=== PATIENT | female | born 1970 | race Two or more races ===

== ENCOUNTER 2020-11-30 11:04 | Outpatient (REF) | payer OTHER, SELFPAY ==
[2020-11-30 11:52] LABS: MANUAL DIFF FLAG NO
[2020-11-30 11:57] LABS: Basophils Percent Auto 0.3 % (0-2); Eosinophils Absolute Auto 0.2 X10*3/uL (0.0-0.4); Eosinophils Percent Auto 3.9 % (0-4); Hematocrit 40.1 % (37-47); Hemoglobin 12.8 g/dl (12.0-16.0); Imm Gran Abs Auto 0.02 X10*3/uL (0.00-0.03); Imm Gran Pct Auto 0.3 % (0.0-0.4); Lymphocytes Absolute Auto 1.4 X10*3/uL (1.2-4.9); Lymphocytes Percent Auto 22.5 % (20-40); Mean Corpuscular HGB Conc 31.9 g/dl (31.0-35.0); Mean Corpuscular Hemoglobin 27.5 pg (27.0-33.0); Mean Corpuscular Volume 86.2 fL (80-98); Monocytes Absolute Auto 0.5 X10*3/uL (0.1-1.2); Monocytes Percent Auto 8.1 % (2-11); Neutrophils Percent Auto 64.9 % (45-73); Platelet Count 188 X10*3/uL (160-400); Red Blood Count 4.65 X10*6/uL (4.20-5.50); Red Cell Distribution Width 12.6 % (11.0-16.0); White Blood Count 6.2 X10*3/uL (4.8-10.8)
[2020-11-30 12:31] LABS: Estimated Average Glucose 114 mg/dL; Hemoglobin A1c % 5.6 %
[2020-11-30 12:32] LABS: Alanine Aminotransferase 30 U/L (0-31); Albumin Level 4.3 g/dL (3.5-5.0); Alkaline Phosphatase 76 U/L (39-117); Anion Gap 17 (12-20); Aspartate Amino Transferase 29 U/L (5-31); Bilirubin Total 0.3 mg/dL (0.0-1.0); Blood Urea Nitrogen 16 mg/dL (9-16); Calcium 9.6 mg/dL (8.4-10.2); Carbon Dioxide 21 mmol/L (22-29); Chloride 107 mmol/L (96-108); Cholesterol 176 mg/dL; Estimated Glomerular Filt Rate > 60; Glucose Random 84 mg/dL (60-115); HDL Cholesterol 50 mg/dL; LDL Cholesterol Calculated 112 mg/dl; Potassium 4.3 mmol/l (3.3-5.1); Sodium 141 mmol/L (135-145); Triglycerides 72 mg/dL
== END 2020-11-30 11:05 | disposition home or self-care (01) ==
LOC: HO.LAB 11:04
PROVIDERS: Visit Provider Family Medicine
DX: E66.9 Obesity, unspecified (principal); R42 Dizziness and giddiness
CPT/HCPCS: 36415; 80053; 80061; 83036; 85025

== ENCOUNTER 2020-12-18 11:21 | Outpatient (REF) | payer OTHER, SELFPAY ==
[2020-12-18 11:47] LABS: Glucose Urine UA NEG (NEG); Leukocyte Esterase Urine NEG (NEG); Nitrite Urine POS (NEG); PH 6.5 (5.0-8.0); Urine Blood NEG (NEG); Urine Ketones NEG (NEG); Urine Protein NEG (NEG-TRACE)
[2020-12-18 11:58] LABS: Appearance Urine CLOUDY; Color Urine YELLOW
[2020-12-18 12:18] LABS: Bacteria Urine 3+ /LPF; Mucus Urine 1+ /LPF; Oval Fat Bodies Urine NOTED; RBC Urine 0 /HPF (0); Squamous Epithelial Cell Urine 1+ /LPF
== END 2020-12-18 11:22 | disposition home or self-care (01) ==
LOC: HO.US 11:21
PROVIDERS: Visit Provider Urology
DX: R30.0 Dysuria (principal)
CPT/HCPCS: 81001; 87086

== ENCOUNTER 2020-12-26 15:03 | Outpatient (REF) | payer OTHER, SELFPAY ==
--- NOTE | 2020-12-26 | US_ITS ---
EXAMINATION: US RETROPERITONEAL LIMITED (RENAL ONLY) CLINICAL INFORMATION: Renal stone. COMPARISON: Previous exam November 2019 TECHNIQUE: Grayscale and color imaging of the kidneys. Exam is limited as was performed with the patient sitting in a wheelchair. FINDINGS: RIGHT KIDNEY: 9.5 x 4.1 x 4.9 cm (SAG x AP x TRV). The kidney is normal in size, contour, and echogenicity. Renal cortical thickness is normal. No calculi or focal parenchymal lesions. No hydronephrosis. LEFT KIDNEY: 9.7 x 5.4 x 4.5 cm (SAG x AP x TRV). The kidney is normal in size, contour, and echogenicity. Renal cortical thickness is normal. No calculi or focal parenchymal lesions. No hydronephrosis. US/US renal BI IMPRESSION: Limited exam. No stone seen.
== END 2020-12-26 15:04 | disposition home or self-care (01) ==
LOC: HO.US 15:03
PROVIDERS: PCP Family Medicine; Visit Provider Urology
DX: Z87.442 Personal history of urinary calculi (principal)
CPT/HCPCS: 76775

== ENCOUNTER 2021-02-06 11:58 | Outpatient (REF) | payer OTHER, SELFPAY ==
--- NOTE | ~2021-02-06 | MM_ITS ---
EXAMINATION: MM SCREENING DIGITAL MAMMOGRAPHY, BILATERAL CLINICAL INFORMATION: Screening. Asymptomatic. The lifetime risk of breast cancer based on the Tyrer-Cuzick Model is 12%. COMPARISON: Mammography: 01/03/2019, 12/22/2017, 11/19/2016 TECHNIQUE: Digital mammography is performed in craniocaudal and mediolateral oblique views along with computer-aided detection (CAD). Additional exaggerated right CC view is provided. Discussion with office technologist notes that this was a technically challenging exam. The patient wheelchair-bound with decreased mobility and required two technologists to position and obtain images. Exam was tailored to patient capabilities. FINDINGS: There are scattered areas of fibroglandular density (ACR BI-RADS breast composition Category b). There are no significant masses, abnormal calcifications, or other abnormalities. No significant changes from prior studies. MM/MM screening mammo BI IMPRESSION: No significant changes from prior exams. Patient study limitations. Exam tailored to patient capabilities. ASSESSMENT: BI-RADS 2: Benign RECOMMENDATION: Routine annual mammography screening. This patient's information was entered into a reminder system with a target due date for their next mammogram.
== END 2021-02-06 11:59 | disposition home or self-care (01) ==
LOC: HO.MAMMO 11:58
PROVIDERS: PCP Family Medicine; Visit Provider Family Medicine
DX: Z12.31 Encounter for screening mammogram for malignant neoplasm of breast (principal)
CPT/HCPCS: 77067

== ENCOUNTER → 2021-03-21 10:56 | Outpatient (BNVA) | payer OTHER, SELFPAY | PROVIDERS: PCP Family Medicine; Visit Provider Urology | DX: N20.0 Calculus of kidney (principal) | CPT/HCPCS: 99212 ==

== ENCOUNTER 2021-05-20 14:23 | Outpatient (REF) | payer OTHER, SELFPAY ==
--- NOTE | ~2021-05-20 | MR_ITS ---
MRI OF THE BRAIN WITHOUT IV CONTRAST INDICATION: Seizures. COMPARISON: Brain MRI 04/25/2014. TECHNIQUE: Multiplanar multisequence MR imaging of the brain was obtained without IV contrast. FINDINGS: There is no hydrocephalus, extra-axial surface collection, or herniation. Stable pattern T2 signal changes within the periventricular white matter associated with squared morphology of the lateral ventricles and chronic appearing ischemic changes within the centrum semiovale bilaterally and chronic encephalomalacia and gliosis within the left occipital lobe. These findings may in part reflect periventricular leukomalacia given ventricular morphology. There is no mesial temporal sclerosis. The major flow voids at the skull base are preserved. There is no acute infarct on diffusion-weighted imaging. There is no intracranial hemorrhage on the gradient recalled echo acquisition. The midline structures are normal. The cerebellar tonsils are normally positioned. The cerebellum and brainstem are normal. The craniocervical junction is normal. Osseous marrow signal intensity is homogenous. The visualized soft tissues are unremarkable. The right ethmoid air cells are opacified. Moderate opacification of the right frontal sinus. MR/MR head/brain wo con IMPRESSION: - No acute intracranial findings. No mesial temporal sclerosis. - Stable pattern T2 signal changes within the periventricular white matter associated with squared morphology of the lateral ventricles and chronic appearing ischemic changes within the centrum semiovale bilaterally and chronic encephalomalacia and gliosis within the left occipital lobe. These findings may in part reflect periventricular leukomalacia given ventricular morphology. - The right ethmoid air cells are opacified. Moderate opacification of the right frontal sinus.
== END 2021-05-20 14:24 | disposition home or self-care (01) ==
LOC: HO.MRI 14:23
PROVIDERS: PCP Family Medicine; Visit Provider Psychiatry & Neurology Neurology
DX: R56.9 Unspecified convulsions (principal)
CPT/HCPCS: 70551

== ENCOUNTER 2021-05-29 07:20 | Day surgery (SDC) | payer OTHER, SELFPAY ==
[2021-05-22 13:19] VITALS: BMI 26.5
--- NOTE | 2021-05-28 09:32 | HO.ANESPROP2 ---
Documented by User: Lydia Johns 05/28/21 09:33 HPI - Anesthesia Eval Consult details Narrative: 50yo F for Upper Endoscopy and Colonoscopy PMFSH Active Problems Active Problems: All Active Problems (Updated 05/22/21 @ 13:18 by Bell Miller) Nephrolithiasis (Acute) Past Medical History Medical History (Updated 05/22/21 @ 13:18 by Bell Miller) Alopecia Asthma Edema of both lower extremities GERD (gastroesophageal reflux disease) Hx of cerebral palsy Wheelchair dependence Surgical History Surgical History (Updated 05/22/21 @ 13:17 by Bell Miller) History of esophagogastroduodenoscopy (EGD) History of surgery Hx of appendectomy Hx of colonoscopy Hx of lithotripsy Social History Social History Patient Tobacco Use Status: Never used Tobacco Are you DNR?: No Advance Directives: No Advance Directives Information Provided: No Advance Directives on File: No Meds Allergies Allergy/AdvReac Type Severity Reaction Status Date / Time budesonide [From SYMBICORT] Allergy Intermediate TREMOR Verified 05/29/21 07:21 formoterol [From SYMBICORT] Allergy Intermediate TREMOR Verified 05/29/21 07:21 sulfamethoxazole Allergy Intermediate RASH Verified 05/29/21 07:21 [From BACTRIM] trimethoprim [From BACTRIM] Allergy Intermediate RASH Verified 05/29/21 07:21 Sulfa (Sulfonamide Allergy Unknown Unknown Verified 05/29/21 07:21 Antibiotics) Symbicort Allergy Unknown Unknown Uncoded 05/29/21 07:21 Home Medications Medication Instructions Recorded Confirmed Last Taken Type albuterol sulfate 90 mcg/actuation 2 puff INHALATION Q4H PRN 03/21/21 Unknown History aerosol inhaler alclometasone 0.05 % topical cream appl TOPICAL 03/21/21 Unknown History ascorbic acid (vitamin C) 500 mg 500 mg PO DAILY 03/21/21 Unknown History tablet bismuth subsalicylate 262 mg tablet 0 tab PO 03/21/21 Unknown History cetirizine 10 mg tablet 10 mg PO DAILY 03/21/21 05/29/21 06:30 History cholecalciferol (vitamin D3) 25 25 mcg PO DAILY 03/21/21 Unknown History mcg (1,000 unit) capsule ciclopirox 0.77 % topical cream appl TOPICAL BEDTIME 03/21/21 Unknown History diclofenac sodium 1 % topical gel g TOPICAL 03/21/21 Unknown History diphenhydramine HCl 25 mg capsule 0 mg PO 03/21/21 Unknown History docusate sodium 100 mg capsule 100 mg PO BID 03/21/21 Unknown History ferrous sulfate 325 mg (65 mg 325 mg PO DAILY 03/21/21 05/20/21 History iron) tablet fluticasone propionate 220 2 puff PO BID 03/21/21 Unknown History mcg/actuation HFA aerosol inhaler gabapentin 100 mg capsule 0 mg PO 03/21/21 Unknown History ketotifen fumarate 0.025 % (0.035 1 drp OPHTHALMIC (EYE) ONCE ml 03/21/21 Unknown History %) eye drops montelukast 10 mg tablet 10 mg PO BEDTIME 03/21/21 Unknown History naproxen 375 mg tablet 375 mg PO BID 03/21/21 Unknown History omeprazole 20 mg capsule,delayed 20 mg PO BID 03/21/21 05/29/21 06:30 History release sumatriptan succinate 50 mg tablet 0 mg PO 03/21/21 Unknown History terconazole 0.4 % vaginal cream 1 appful VAGINAL BEDTIME 03/21/21 Unknown History Exam Exam Date and Time: May 28, 2021 0932 Height,Weight and Vital Signs: Height 5 ft 3 in Weight 68.039 kg Assessment and Plan Assessment Anesthesia Assessment: Chart Reviewed Documented by User: Stephanie Orozco 05/29/21 08:05 [facility] Past Medical History Medical History (Updated 05/22/21 @ 13:18 by Bell Miller) Alopecia Asthma Edema of both lower extremities GERD (gastroesophageal reflux disease) Hx of cerebral palsy Wheelchair dependence Surgical History Surgical History (Updated 05/22/21 @ 13:17 by Bell Milelr) History of esophagogastroduodenoscopy (EGD) History of surgery Hx of appendectomy Hx of colonoscopy Hx of lithotripsy Social History Social History Patient Tobacco Use Status: Never used Tobacco Are you DNR?: No Advance Directives: No Advance Directives Information Provided: No Advance Directives on File: No Meds Allergies Allergy/AdvReac Type Severity Reaction Status Date / Time budesonide [From SYMBICORT] Allergy Intermediate TREMOR Verified 05/29/21 07:21 formoterol [From SYMBICORT] Allergy Intermediate TREMOR Verified 05/29/21 07:21 sulfamethoxazole Allergy Intermediate RASH Verified 05/29/21 07:21 [From BACTRIM] trimethoprim [From BACTRIM] Allergy Intermediate RASH Verified 05/29/21 07:21 Sulfa (Sulfonamide Allergy Unknown Unknown Verified 05/29/21 07:21 Antibiotics) Symbicort Allergy Unknown Unknown Uncoded 05/29/21 07:21 Home Medications Medication Instructions Recorded Confirmed Last Taken Type albuterol sulfate 90 mcg/actuation 2 puff INHALATION Q4H PRN 03/21/21 Unknown History aerosol inhaler alclometasone 0.05 % topical cream appl TOPICAL 03/21/21 Unknown History ascorbic acid (vitamin C) 500 mg 500 mg PO DAILY 03/21/21 Unknown History tablet bismuth subsalicylate 262 mg tablet 0 tab PO 03/21/21 Unknown History cetirizine 10 mg tablet 10 mg PO DAILY 03/21/21 05/29/21 06:30 History cholecalciferol (vitamin D3) 25 25 mcg PO DAILY 03/21/21 Unknown History mcg (1,000 unit) capsule ciclopirox 0.77 % topical cream appl TOPICAL BEDTIME 03/21/21 Unknown History diclofenac sodium 1 % topical gel g TOPICAL 03/21/21 Unknown History diphenhydramine HCl 25 mg capsule 0 mg PO 03/21/21 Unknown History docusate sodium 100 mg capsule 100 mg PO BID 03/21/21 Unknown History ferrous sulfate 325 mg (65 mg 325 mg PO DAILY 03/21/21 05/20/21 History iron) tablet fluticasone propionate 220 2 puff PO BID 03/21/21 Unknown History mcg/actuation HFA aerosol inhaler gabapentin 100 mg capsule 0 mg PO 03/21/21 Unknown History ketotifen fumarate 0.025 % (0.035 1 drp OPHTHALMIC (EYE) ONCE ml 03/21/21 Unknown History %) eye drops montelukast 10 mg tablet 10 mg PO BEDTIME 03/21/21 Unknown History naproxen 375 mg tablet 375 mg PO BID 03/21/21 Unknown History omeprazole 20 mg capsule,delayed 20 mg PO BID 03/21/21 05/29/21 06:30 History release sumatriptan succinate 50 mg tablet 0 mg PO 03/21/21 Unknown History terconazole 0.4 % vaginal cream 1 appful VAGINAL BEDTIME 03/21/21 Unknown History Exam Airway Mallampati Class: II TM Dist: >3cm Neck ROM: Full Heart: rrr Lungs: cta Assessment and Plan Assessment Anesthesia Assessment: Anesthesia Plan Discussed and Chart Reviewed Final Anesthetic Review NPO: Yes ASA Class: III Final Preanesthetic Review: No Changes in Pt Med Stat and Consent Obtained/Reviewed Patient Risk: Intermediate Procedure Risk: Intermediate Anesthetic Plan Anesthetic Plan: MAC: Disposition: Standard PACU
[2021-05-29 07:51] VITALS: BP 135/93; PULSE 98; RESP 16; TEMP 36.1; O2SAT 100
[2021-05-29] MEDS: Lactated Ringers 1,000 ML 100 ML IVCONT (08:15)
[2021-05-29 09:32] VITALS: BP 104/66; PULSE 71; RESP 16; TEMP 36.4; O2SAT 100
--- NOTE | 2021-05-29 09:35 | PM.OP ---
Brief Operative Note Date of Service: 05/29/21 Pre-op diagnosis: GERD, Screening Post-op diagnosis: other (Duodenal polyp(snared/removed), gastric polyps, hiatal hernia, GERD, Colon polyp, Diverticulosis) Procedure: EGD with snare polypectomy and biopsies, and Colonoscopy to the cecum and TI with bx/removal of polyp Surgeon: George Lambert Anesthesia: MAC Was an Stove Carriage Operator used for this Procedure?: No Estimated blood loss (mL): 3.0 Pathology: other (A. Duodenal polyp B. Gastric polyps C. EG Junction at 32cm D. Proximal AC polyp) Condition: stable Disposition: PACU
[2021-05-29 09:47] VITALS: BP 103/78; PULSE 81; RESP 17; TEMP 36.4
--- NOTE | 2021-05-29 10:59 | OP_ITS ---
SURGEON: George Lambert MD PREOPERATIVE DIAGNOSIS: POSTOPERATIVE DIAGNOSIS: PROCEDURE PERFORMED: ESTIMATED BLOOD LOSS: COMPLICATIONS: ANESTHESIA: Monitored anesthesia care. ASSISTANTS: SPECIMENS: PROCEDURE: Esophagogastroduodenoscopy with snare polypectomy and biopsies, and colonoscopy to cecum and terminal ileum with biopsy and removal of polyp. INDICATION: The patient presents for evaluation of a previous history of a duodenal adenoma and gastroesophageal reflux, and colorectal cancer screening and family history of colon cancer. Full consent obtained from her both procedures, including risks of bleeding and perforation. PREOPERATIVE DIAGNOSES: History of duodenal adenoma and gastroesophageal reflux, family history of colon cancer, and colorectal cancer screening. POSTOPERATIVE DIAGNOSES: History of duodenal adenoma and gastroesophageal reflux, family history of colon cancer, and colorectal cancer screening, duodenal polyp, gastric polyps, hiatal hernia with reflux, colon polyp, diverticulosis and internal hemorrhoids. DESCRIPTION OF PROCEDURE: The patient was placed in the left lateral decubitus position. The Olympus video gastroscope was passed in the posterior oropharynx and upper esophagus under direct vision. The scope was passed slowly into the distal esophagus. The gastroesophageal junction appeared at 32 cm. There was some slight irregularity consistent with reflux and possibly less than 1 cm area of Warren's mucosa. There was no esophagitis. The scope entered a moderate-sized hiatal hernia. The hiatal hernia mucosa appeared normal. The scope was advanced to the pylorus, and the duodenum was cannulated to the 2nd and 3rd portion. In the 2nd portion of the duodenum was a raised, but flat approximately 8 to 10 mm polyp, which was snared and recovered by suction. The polypectomy site appeared clean, without any sign of residual polyp nor bleeding. In the same vicinity I was able to visualize the major papilla well despite using the forward viewing gastroscope. The papilla appeared normal. The remainder of the duodenum including the bulb appeared normal. The scope was withdrawn back to the stomach. The gastric antrum and body appeared normal with good peristalsis. Scope was retroflexed visualizing the proximal stomach carefully, which appeared normal other than multiple hyperplastic-appearing gastric polyps. Several of these were biopsied. There was no mass or ulceration. Scope was straightened and withdrawn back to the esophagus. Biopsies were obtained at the EG junction at 32 cm. Proximal to that, the esophageal mucosa appeared normal. The scope was withdrawn from the patient. She was turned around for the colonoscopy. The digital rectal exam revealed no abnormalities. The Olympus video pediatric colonoscope was entered into the rectum and advanced easily to the cecum. Once in the cecum, I did identify normal-appearing cecal pouch with appendiceal orifice and a normal-appearing ileocecal valve. The terminal ileum was cannulated and appeared normal. The scope was withdrawn back in the colon. The entire cecum was well visualized and appeared normal. The scope was slowly withdrawn assessing all mucosal surfaces carefully. Preparation was excellent. In the proximal ascending colon was an approximately 4 mm polyp, which was biopsied and completely removed with a cold biopsy forceps. I did not visualize any other polyps, colitis, or angiodysplasia. There was a moderate amount of sigmoid diverticulosis. In the rectum, scope was retroflexed visualizing internal hemorrhoids, but no other pathology. The rectal mucosa appeared normal. The scope was straightened and withdrawn from the patient. She tolerated both procedures well and was returned to the recovery area in stable condition. IMPRESSION: 1. Duodenal polyp, status post snare polypectomy. 2. Gastric polyps, status post biopsy. 3. Hiatal hernia, gastroesophageal reflux, rule out Warren's esophagus. 4. Small colon polyp, status post biopsy removal. 5. Diverticulosis. 6. Internal hemorrhoids. PLAN: The results of the biopsies will be checked. I would recommend a repeat upper endoscopy and colonoscopy within 5 years. She was advised not to use any aspirin or NSAIDs for 1 week. She was advised to continue her omeprazole. She will otherwise see me on a p.r.n. basis. This has been discussed with her sister, Ciarra. MD JOSE Veras/TI / [id number] MTDGabino
== END 2021-05-29 11:00 | disposition home or self-care (01) ==
PROVIDERS: PCP Family Medicine; Visit Provider Internal Medicine
PROC: (CPT 45380; principal; 2021-05-29 08:20)
DX: Z12.11 Encounter for screening for malignant neoplasm of colon (principal); Z80.0 Family history of malignant neoplasm of digestive organs; D12.2 Benign neoplasm of ascending colon; K57.30 Diverticulosis of large intestine without perforation or abscess without bleeding; K64.8 Other hemorrhoids; K21.9 Gastro-esophageal reflux disease without esophagitis; D13.2 Benign neoplasm of duodenum; K31.7 Polyp of stomach and duodenum; K44.9 Diaphragmatic hernia without obstruction or gangrene; J45.909 Unspecified asthma, uncomplicated; G80.9 Cerebral palsy, unspecified; R60.0 Localized edema; L65.9 Nonscarring hair loss, unspecified; Z99.3 Dependence on wheelchair; Z79.51 Long term (current) use of inhaled steroids; Z79.899 Other long term (current) drug therapy; Z88.2 Allergy status to sulfonamides; Z88.8 Allergy status to other drugs, medicaments and biological substances
CPT/HCPCS: 45380; 43251; 43239; 88305; 88342; J3010

== ENCOUNTER 2021-09-17 09:31 | Outpatient (REF) | payer OTHER, SELFPAY ==
--- NOTE | ~2021-09-17 | MM_ITS ---
EXAMINATION: BONE DENSITOMETRY CLINICAL INDICATION: Osteoporosis. COMPARISON: Previous BD dated 06/10/2012 and baseline BD dated 07/15/2007. TECHNIQUE: Using a [employer] DXA System (software version: 13.1) manufactured by [employer], dual-energy x-ray absorptiometry was performed of the lumbar spine and left hip. The images are of good technical quality. Summary results are attached. FINDINGS: AP SPINE L1-L4: Current: BMD 0.935 g/cm2, Z-score -2.1, T-score -2.0, osteopenia, 2.9% increase from previous, 3.3% decrease from baseline (<5% change is not significant). Prior: BMD 0.909 g/cm2. Baseline: BMD 0.967 g/cm2. LEFT FEMUR, NECK: Current: BMD 0.680 g/cm2, Z-score -2.1, T-score -2.6, osteoporosis. Prior: BMD 0.687 g/cm2. Baseline: BMD 0.755 g/cm2. LEFT FEMUR, TOTAL: Current: BMD 0.768 g/cm2, Z-score -1.8, T-score -1.9, osteopenia, 6.5% decrease from previous, 4.6% decrease from baseline (<5% change is not significant). Prior: BMD 0.821 g/cm2. Baseline: BMD 0.805 g/cm2. IDENTIFIED RISK FACTORS: Early menopause, secondary osteoporosis, family history (parental hip fracture). HISTORY OF FRACTURE: None listed. MEDICATIONS: Calcium supplements or multivitamin, vitamin D. MM/XR DEXA axial skeleton IMPRESSION: 1. DIAGNOSIS: Osteoporosis based on the lowest T-score value of -2.6 in the femoral neck applying World Health Organization criteria. 2. 10-YEAR FRACTURE RISK PREDICTION, FRAX: According to the guidelines, FRAX calculation should only be performed on patients in the osteopenia bone density category. Therefore, FRAX was not performed on this patient. 3. Treatment Recommendations: NOF guidelines recommend consideration for treatment in postmenopausal women and men age 50 and older presenting with the following: -A hip or vertebral (clinical or morphometric) fracture. -T-score less than or equal to -2.5 at the femoral neck or spine after appropriate evaluation to exclude secondary causes. -Low bone mass at the hip or spine and a 10-year fracture probability by FRAX of greater than or equal to 3% for hip fracture or greater than or equal to 20% for major osteoporotic fracture based on the [place] adapted WHO algorithm. 4. Other Recommendations: All treatment decisions require clinical judgment and consideration of individual patient factors, including patient preferences, comorbidities, previous drug use, risk factors not captured in the FRAX model (e.g. frailty, falls, vitamin D deficiency, increased bone turnover, interval significant decline in bone density) and possible under or overestimation of fracture risk by FRAX. Additional medical evaluation for secondary cause of low bone mineral density may be appropriate. FUTURE SCAN RECOMMENDATION: People with diagnosed cases of osteoporosis or at high risk for fracture should have regular bone mineral density tests. For patients eligible for Medicare, routine testing is allowed once every 2 years. The testing frequency can be increased to one year for patients who have rapidly progressing disease, those who are receiving or discontinuing medical therapy to restore bone mass, or have additional risk factors.
== END 2021-09-17 09:32 | disposition home or self-care (01) ==
LOC: HO.MAMMO 09:31
PROVIDERS: Visit Provider Family Medicine
DX: Z13.820 Encounter for screening for osteoporosis (principal); M81.0 Age-related osteoporosis without current pathological fracture; Z78.0 Asymptomatic menopausal state; Z79.899 Other long term (current) drug therapy
CPT/HCPCS: 77080; 95806

== ENCOUNTER 2022-01-15 09:41 | Outpatient (REF) | payer OTHER, SELFPAY ==
[2022-01-15 09:55] LABS: MANUAL DIFF FLAG NO
[2022-01-15 10:30] LABS: Basophils Percent Auto 0.6 % (0-2); Eosinophils Absolute Auto 0.3 X10*3/uL (0.0-0.4); Hemoglobin 13.2 g/dl (12.0-16.0); Imm Gran Abs Auto 0.02 X10*3/uL (0.00-0.03); Imm Gran Pct Auto 0.3 % (0.0-0.4); Lymphocytes Absolute Auto 1.6 X10*3/uL (1.2-4.9); Lymphocytes Percent Auto 21.9 % (20-40); Mean Corpuscular HGB Conc 31.4 g/dl (31.0-35.0); Mean Corpuscular Hemoglobin 27.7 pg (27.0-33.0); Mean Corpuscular Volume 88.2 fL (80.0-98.0); Mean Platelet Volume 11.2 fL (9.4-12.3); Monocytes Absolute Auto 0.6 X10*3/uL (0.1-1.2); Monocytes Percent Auto 7.9 % (2-11); Neutrophils Absolute Auto 4.7 x10*3/uL (2.0-8.3); Neutrophils Percent Auto 65.3 % (45-73); Platelet Count 251 X10*3/uL (160-400); Red Blood Count 4.76 X10*6/uL (4.20-5.50); White Blood Count 7.2 X10*3/uL (4.8-10.8)
[2022-01-15 10:59] LABS: Alanine Aminotransferase 19 U/L (0-31); Albumin Level 4.5 g/dL (3.5-5.0); Alkaline Phosphatase 80 U/L (39-117); Anion Gap 15 (12-20); Aspartate Amino Transferase 19 U/L (5-31); Bilirubin Total 0.5 mg/dL (0.0-1.0); Blood Urea Nitrogen 13 mg/dL (9-16); Calcium 9.9 mg/dL (8.4-10.2); Carbon Dioxide 27 mmol/L (22-29); Chloride 106 mmol/L (96-108); Cholesterol 178 mg/dL; Estimated Average Glucose 123 mg/dL; Estimated Glomerular Filt Rate > 60; Glucose Random 78 mg/dL (60-115); HDL Cholesterol 49 mg/dL; Hemoglobin A1c % 5.9 %; LDL Cholesterol Calculated 114 mg/dl; Potassium 4.7 mmol/L (3.3-5.1); Sodium 143 mmol/L (135-145); Total Protein 7.2 g/dL (6.5-8.0); Triglycerides 78 mg/dL
[2022-01-15 11:20] LABS: TSH reflex Free T4 2.32 uIU/mL (0.32-4.0); Vitamin D 25-OH Total 47.5 ng/mL (>30)
== END 2022-01-15 09:42 | disposition home or self-care (01) ==
LOC: HO.LAB 09:41
PROVIDERS: PCP Family Medicine; Visit Provider Family Medicine
DX: E55.9 Vitamin D deficiency, unspecified (principal); M81.0 Age-related osteoporosis without current pathological fracture; N20.0 Calculus of kidney; R06.00 Dyspnea, unspecified; R42 Dizziness and giddiness
CPT/HCPCS: 36415; 80053; 80061; 82306; 83036; 84443; 85025

== ENCOUNTER 2022-02-12 09:05 | Outpatient (REF) | payer OTHER, SELFPAY ==
--- NOTE | ~2022-02-12 | MM_ITS ---
EXAMINATION: MM SCREENING DIGITAL BREAST TOMOSYNTHESIS, BILATERAL CLINICAL INFORMATION: Screening. Asymptomatic. The lifetime risk of breast cancer based on the Tyrer-Cuzick Model is 10.7%. COMPARISON: Mammography: 10.7 TECHNIQUE: Digital breast tomosynthesis is performed in both the craniocaudal and mediolateral oblique views along with computer-aided detection (CAD). Synthesized 2D images are generated from the tomosynthesis. FINDINGS: There are scattered areas of fibroglandular density (ACR BI-RADS breast composition Category b). There are no significant masses, abnormal calcifications, or other abnormalities. MM/MM tomosynthesis screening BI IMPRESSION: There are no significant changes from prior study. ASSESSMENT: BI-RADS 1: Negative RECOMMENDATION: Routine annual mammography screening. This patient's information was entered into a reminder system with a target due date for their next mammogram.
== END 2022-02-12 09:06 | disposition home or self-care (01) ==
LOC: HO.MAMMO 09:05
PROVIDERS: PCP Family Medicine; Visit Provider Family Medicine
DX: Z12.31 Encounter for screening mammogram for malignant neoplasm of breast (principal)
CPT/HCPCS: 77063; 77067

== ENCOUNTER 2022-02-25 16:06 | Outpatient (REF) | payer OTHER, SELFPAY ==
[2022-02-25 16:48] LABS: Appearance Urine HAZY; Color Urine YELLOW; Glucose Urine UA NEG (NEG); Leukocyte Esterase Urine NEG (NEG); Nitrite Urine POS (NEG); PH 5.5 (5.0-8.0); Specific Gravity - Urine 1.025 (1.005-1.025); Urine Blood NEG (NEG); Urine Ketones NEG (NEG); Urine Protein NEG (NEG-TRACE)
[2022-02-25 17:51] LABS: Bacteria Urine 4+ /LPF; RBC Urine 0 /HPF (0); Squamous Epithelial Cell Urine 3+ /LPF
== END 2022-02-25 16:07 | disposition home or self-care (01) ==
LOC: HO.LNP 16:06
PROVIDERS: Visit Provider Nurse Practitioner Family
DX: N39.0 Urinary tract infection, site not specified (principal)
CPT/HCPCS: 81001; 87086; 87088; 87186

== ENCOUNTER → 2022-03-30 20:46 | Outpatient (REF) | payer OTHER, SELFPAY | LOC: HO.SL 20:46 | PROVIDERS: PCP Family Medicine; Visit Provider Family Medicine | DX: G47.33 Obstructive sleep apnea (adult) (pediatric) (principal) | CPT/HCPCS: 95810 ==

== ENCOUNTER 2022-03-31 15:38 | Outpatient (REF) | payer OTHER, SELFPAY ==
--- NOTE | ~2022-03-31 | US_ITS ---
EXAMINATION: US RETROPERITONEAL LIMITED (RENAL ONLY) CLINICAL INFORMATION: Calculus of kidney. COMPARISON: US retroperitoneal limited (renal only) 12/26/2020 and 12/20/2019. XR abdomen KUB 04/28/2018 and 04/07/2018. CT abdomen and pelvis without contrast 07/29/2018. TECHNIQUE: Real-time imaging of the kidneys. Technically limited study secondary to patient's limited mobility (wheelchair-bound). FINDINGS: RIGHT KIDNEY: 8.11 x 3.70 x 5.4 cm (SAG x AP x TRV). The kidney is normal in size, contour, and echogenicity. Renal cortical thickness is normal. No calculi or focal parenchymal lesions. No hydronephrosis. LEFT KIDNEY: 7.2 x 4.9 x 5.8 cm (SAG x AP x TRV). The kidney is normal in size, contour, and echogenicity. Renal cortical thickness is normal. No calculi or focal parenchymal lesions. No hydronephrosis. US/US renal BI IMPRESSION: Very limited examination. No discrete nephrolithiasis or hydronephrosis are identified.
== END 2022-03-31 15:39 | disposition home or self-care (01) ==
LOC: HO.HMGCX 15:38
PROVIDERS: PCP Family Medicine; Visit Provider Urology
DX: N20.0 Calculus of kidney (principal)
CPT/HCPCS: 76775

== ENCOUNTER → 2022-04-04 13:36 | Outpatient (BNVA) | payer OTHER, SELFPAY | PROVIDERS: PCP Family Medicine; Visit Provider Urology | DX: N20.0 Calculus of kidney (principal) | CPT/HCPCS: Q3014 ==

== ENCOUNTER 2022-05-02 17:39 | Outpatient (REF) | payer OTHER, SELFPAY ==
[2022-05-02 17:51] LABS: Appearance Urine CLOUDY; Color Urine YELLOW; Glucose Urine UA NEG (NEG); Leukocyte Esterase Urine NEG (NEG); Nitrite Urine POS (NEG); PH 5.5 (5.0-8.0); Urine Blood NEG (NEG); Urine Ketones NEG (NEG); Urine Protein NEG (NEG-TRACE)
[2022-05-02 17:58] LABS: Bacteria Urine 4+ /LPF; RBC Urine 0-2 /HPF (0); Squamous Epithelial Cell Urine 2+ /LPF
== END 2022-05-02 17:40 | disposition home or self-care (01) ==
LOC: HO.LNP 17:39
PROVIDERS: Visit Provider Urology
DX: N20.0 Calculus of kidney (principal)
CPT/HCPCS: 81001; 87086; 87088; 87186

== ENCOUNTER 2022-08-06 | Outpatient (REF) | payer OTHER, SELFPAY ==
[2022-08-06 17:40] LABS: Appearance Urine Clear; Color Urine Yellow; Glucose Urine UA Negative (Negative); Leukocyte Esterase Urine Negative (Negative); Nitrite Urine Negative (Negative); PH 7.5 (5.0-9.0); Urine Blood Negative (Negative); Urine Ketones Negative (Negative); Urine Protein Negative (Neg-Trace)
[2022-08-06 17:48] LABS: Bacteria Urine None Seen (None Seen); Hyaline Casts Urine 0-2 /LPF (0-2); RBC Urine 0-2 /HPF (0-2); WBC Urine 0-5 /HPF (0-5)
== END 2022-08-06 00:01 | disposition home or self-care (01) ==
LOC: HO.LNP
PROVIDERS: Visit Provider Urology
DX: N20.0 Calculus of kidney (principal)
CPT/HCPCS: 81001; 87086; 87147

== ENCOUNTER → 2022-08-15 15:09 | Outpatient (BNVA) | payer OTHER, SELFPAY | PROVIDERS: PCP Family Medicine; Visit Provider Nurse Practitioner Family | DX: G47.33 Obstructive sleep apnea (adult) (pediatric) (principal) | CPT/HCPCS: 99202 ==

== ENCOUNTER 2022-12-02 17:20 | Outpatient (REF) | payer OTHER, SELFPAY | END 2022-12-02 17:21 | disposition home or self-care (01) | LOC: HO.HOSX 17:20 | PROVIDERS: Visit Provider Physician Assistant | DX: Z13.89 Encounter for screening for other disorder (principal) ==

== ENCOUNTER 2022-12-26 17:23 | Outpatient (REF) | payer OTHER, SELFPAY ==
--- NOTE | ~2022-12-26 | XR_ITS ---
EXAMINATION: XR KNEE, LEFT CLINICAL INFORMATION: Pain in left knee COMPARISON: X-ray of the left knee August 2017 TECHNIQUE: Four views of the left knee. FINDINGS: The bones appear osteopenic. 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 No change. Small ossification/calcification in the region of the proximal patella tendon, likely related to prior degenerative change or inflammatory change in the patella tendon. Mild arthrosis of the lateral compartment with small marginal osteophytes, probably unchanged. No effusion. No fracture. XR/XR knee LT 2V IMPRESSION: Patella glynn, unchanged. Stable arthrosis of the lateral compartment.
== END 2022-12-26 17:24 | disposition home or self-care (01) ==
LOC: HO.HOSX 17:23
PROVIDERS: Visit Provider Physician Assistant
DX: M17.12 Unilateral primary osteoarthritis, left knee (principal)
CPT/HCPCS: 20610; 73560; 99202; J1040

== ENCOUNTER → 2023-02-09 15:08 | Outpatient (BNVA) | payer OTHER, SELFPAY | PROVIDERS: PCP Family Medicine; Visit Provider Nurse Practitioner Family | DX: G47.33 Obstructive sleep apnea (adult) (pediatric) (principal); G80.9 Cerebral palsy, unspecified; H50.10 Unspecified exotropia; Z99.89 Dependence on other enabling machines and devices; Z99.3 Dependence on wheelchair | CPT/HCPCS: 99212 ==

== ENCOUNTER 2023-02-13 11:02 | Outpatient (REF) | payer OTHER, SELFPAY ==
--- NOTE | ~2023-02-13 | MM_ITS ---
EXAMINATION: MM SCREENING DIGITAL BREAST TOMOSYNTHESIS, BILATERAL CLINICAL INFORMATION: Screening. Asymptomatic. The lifetime risk of breast cancer based on the Tyrer-Cuzick Model is 11%. COMPARISON: Mammography: 02/12/2022, 02/06/2021, 01/03/2019 TECHNIQUE: Digital breast tomosynthesis is performed in both the craniocaudal and mediolateral oblique views along with computer-aided detection (CAD). Synthesized 2D images are generated from the tomosynthesis. FINDINGS: There are scattered areas of fibroglandular density (ACR BI-RADS breast composition Category b). There are no significant masses, abnormal calcifications, or other abnormalities. Parenchymal pattern is similar to prior studies. There is no developing density or architectural abnormality. The axilla and skin contours are unremarkable. No significant changes. MM/MM tomosynthesis screening BI IMPRESSION: No mammographic evidence of malignancy. ASSESSMENT: BI-RADS 1: Negative RECOMMENDATION: Routine annual mammography screening. This patient's information was entered into a reminder system with a target due date for their next mammogram.
== END 2023-02-13 11:03 | disposition home or self-care (01) ==
LOC: HO.MAMMO 11:02
PROVIDERS: Visit Provider Family Medicine
DX: Z12.31 Encounter for screening mammogram for malignant neoplasm of breast (principal)
CPT/HCPCS: 77063; 77067

== ENCOUNTER 2023-02-18 10:00 | Outpatient (RCR) | payer OTHER, SELFPAY ==
--- NOTE | 2023-01-16 12:51 | MHC.PT.EP ---
[facility] [place] [facility] [place] [facility] [place] [facility] [address] Artie Hooker [address] [phone] F: [phone] F: [phone] F: [phone] F: [phone] Physical Therapy Plan of Care Date of Evaluation: Date of Surgery: Diagnosis: LEFT KNEE OA Assessment: 52 YO FEMALE REF TO PT FOR LEFT KNEE OA- OF IMPORTANCE, Pt HAS CP W Rt SIDED INVOLVEMENT AND IS IN A WC, WHICH SHE SELF-PROPELS WITH HER LEFT LE. Pt'S SISTER IS HER FULL-TIME COURT SPECIALIST- THE Pt SPENDS HER DAYS UP IN HER CHAIR- SHE NOTES THE ONSET OF LEFT KNEE PAIN x 2-3 MONTHS. Pt HAS LIMITED ROM IN LEFT LE, DECR STRENGTH IN HER HIP/ TRUNK/ LEFT LE, POSTURAL DEFICITS, AND (+) LEFT PFPS (LATERAL DRIFT). FUNCTIONALLY, Pt REQ MAX ASSIST W TRANSFERS -USING PRIMARILY LEFT LE FOR WT BEARING, WHICH CREATES INCR STRESS TO HER Lt KNEE Jt-TO BED/ TOILET/ WC- SHE IS NON-AMBULATORY. WE DISCUSSED TRIALING OUT-Pt PT TO DEV A HEP AND TO EDUC/ ASSIST W OPTIONS TO IMPROVE TRANSFERS FOR THE Pt AND HER COURT SPECIALIST- SHE MAY BENEFIT FROM A HOME PT/OT CONSULT FOR FUNCTIONAL TRAINING/ SUGGESTIONS IN HER ACTUAL HOME ENVIRONMENT. Frequency and Duration: The patient will be seen 1 x WK x 4 WKS Short Term Goals: *DEV A HEP FOR Lt LE * ED Pt AND COURT SPECIALIST RE IMPROVED TECHN FOR TRANSFERS AND BED MOB Kiss Machine Operator Goals: *Pt AND HER COURT SPECIALIST DEMON MPORE EFFICIENT TECHN W TRANSFERS *Pt'S LEFT KNEE PAIN DECR W TRANSFERS, SELF-PROPEL Treatment Plan: Modalities to reduce pain, spasms and effusion. Manual therapy to restore motion and function. Therapeutic exercise to improve strength and flexibility. Neuromuscular re-education for posture and balance. Therapeutic activities to return to functional activities of daily living. Electronically signed by: SULTANA MCCABE,PT Please sign and return to therapist. Thank you for your referral.
--- NOTE | 2023-03-13 15:23 | MHC.PT.DC ---
[facility] [place] [facility] [place] Office [place] Office [address] Artie Hooker [address] [phone] F: [phone] F: [phone] F: [phone] F: [phone] Physical Therapy Discharge Report Diagnosis: LEFT KNEE OA Date of Surgery: Date of Evaluation: 01/16/23 Date of Discharge: 03/13/23 Treatments to Date: 3 Cancellations to Date: 2 No Shows to Date: 0 Discharge Status: Improved Function Independent with HEP Patient Elected to Stop Discharge Summary: Pt MET GOALS IN OUT-Pt PT TO MAX POTENTIAL- WE EDUC AND UTILIZED A [employer] TRANSFER DEVICE AND SIMUL TRANSFER TECHN FOR HER ACCESS LIAISON AND HOME ENVIRONMENT - THE Pt HAS A HEP WELL. SHE WOULD BENEFIT FROM IN HOME PT TO BETTER ADDRESS SPECIFIC COMPONENTS OF ADLS/ TRANSFERS/ BED MOB. Electronically signed by: SULTANA MCCABE,PT Please sign and return to therapist. Thank you for your referral.
== END 2023-03-13 15:24 | disposition home or self-care (01) ==
LOC: HO.PT 10:00
PROVIDERS: PCP Family Medicine; Visit Provider Physician Assistant
DX: M17.12 Unilateral primary osteoarthritis, left knee (principal)
CPT/HCPCS: 97140; 97163; 97530

== ENCOUNTER 2023-03-09 15:17 | Outpatient (REF) | payer OTHER, SELFPAY ==
--- NOTE | ~2023-03-09 | XR_ITS ---
EXAMINATION: XR KNEES AP STANDING CLINICAL INFORMATION: Pain, unable to stand COMPARISON: X-rays of the left knee 12/26/2022 and August 2017. TECHNIQUE: AP bilateral standing view of the knees was obtained. FINDINGS: RIGHT KNEE LIMITED: Standing view only: Small marginal osteophytes about the lateral compartment. Definite joint space narrowing. Medial compartment unremarkable. Surrounding bone and soft tissues unremarkable. LEFT KNEE LIMITED: Standing view only: The medial and lateral compartments are unremarkable. Surrounding bone and soft tissues are unremarkable. XR/XR knee standing BI IMPRESSION: RIGHT KNEE: Limited Standing View Only: Mild osteoarthritis. LEFT KNEE: Limited Standing View Only: Unremarkable.
--- NOTE | ~2023-03-09 | XR_ITS ---
EXAMINATION: XR FOOT, RIGHT CLINICAL INFORMATION: Foot/toe pain. Evaluate for a fracture. COMPARISON: X-ray of the right foot February 2017 TECHNIQUE: AP, lateral, and oblique views of the right foot. FINDINGS: Bones appear osteopenic but unchanged. Possible new small ossific fragment along the dorsal aspect of the navicular not seen previously Prominent soft tissues compatible with normal variation or mild edema, unchanged compared to prior. No fracture or degenerative joint disease. XR/XR foot RT min 3V IMPRESSION: 1. Possible small ossific fragment versus overlapping bones related to projection over the dorsal aspect of the navicular. Cannot exclude small fracture. Correlate with clinical exam to help determine clinical significance. Alternatively this could reflect projectional artifact or dystrophic or degenerative ossification of the capsule. 2. Osteopenia.
== END 2023-03-09 15:18 | disposition home or self-care (01) ==
LOC: HO.XRAY 15:17
PROVIDERS: PCP Family Medicine; Visit Provider Family Medicine
DX: M25.561 Pain in right knee (principal); M25.562 Pain in left knee; M79.671 Pain in right foot
CPT/HCPCS: 73565; 73630

== ENCOUNTER 2023-03-17 10:41 | Outpatient (REF) | payer OTHER, SELFPAY ==
--- NOTE | ~2023-03-17 | US_ITS ---
EXAMINATION: US RETROPERITONEAL COMPLETE (RENAL) CLINICAL INFORMATION: Bladder pressure. UTI. Kidney stone. COMPARISON: Renal ultrasound 03/31/2022 and 12/26/2020. CT abdomen and pelvis 07/29/2018. X-ray KUB 04/28/2018 and 04/07/2018. TECHNIQUE: Real-time imaging of the kidneys and bladder. Extremely limited exam, patient scanned in wheelchair. FINDINGS: RIGHT KIDNEY: 10.5 x 3.6 x 4.5 cm (SAG x AP x TRV). The kidney is normal in size, contour, and echogenicity. Renal cortical thickness is normal. No calculi or focal parenchymal lesions. No hydronephrosis. LEFT KIDNEY: 10.4 x 4.8 x 4.5 cm (SAG x AP x TRV). The kidney is normal in size, contour, and echogenicity. Renal cortical thickness is normal. No calculi or focal parenchymal lesions. No hydronephrosis. BLADDER: Well distended and normal. Bilateral ureteral jets are demonstrated. Prevoid bladder volume is 152 mL. Postvoid bladder volume is 135 mL. US/US retroperitoneal comp IMPRESSION: Large postvoid residual of 135 mL.
== END 2023-03-17 10:42 | disposition home or self-care (01) ==
LOC: HO.US 10:41
PROVIDERS: Absent Provider Family Medicine; PCP Family Medicine; Visit Provider Urology
DX: N39.0 Urinary tract infection, site not specified (principal); Z87.442 Personal history of urinary calculi
CPT/HCPCS: 76770

== ENCOUNTER → 2023-04-07 11:28 | Outpatient (BNVA) | payer OTHER, SELFPAY | PROVIDERS: PCP Family Medicine; Visit Provider Urology | DX: N20.0 Calculus of kidney (principal) | CPT/HCPCS: 99212 ==

== ENCOUNTER 2023-06-08 14:39 | Outpatient (REF) | payer OTHER, SELFPAY ==
[2023-06-08 16:07] LABS: Anion Gap 14 (12-20); Blood Urea Nitrogen 14 mg/dL (9-16); Calcium 10.3 mg/dL (8.4-10.2); Carbon Dioxide 25 mmol/L (22-29); Chloride 106 mmol/L (96-108); Estimated Glomerular Filt Rate > 60; Glucose Random 94 mg/dL (60-115); Sodium 141 mmol/L (135-145)
[2023-06-08 16:15] LABS: B Type Natriuretic Peptide 16 pg/mL (<100)
== END 2023-06-08 14:40 | disposition home or self-care (01) ==
LOC: HO.LAB 14:39
PROVIDERS: PCP Family Medicine; Visit Provider Internal Medicine Cardiovascular Disease
DX: R60.0 Localized edema (principal)
CPT/HCPCS: 36415; 80048; 83880

== ENCOUNTER 2023-07-09 15:57 | Outpatient (REF) | payer OTHER, SELFPAY ==
[2023-07-09 16:25] LABS: MANUAL DIFF FLAG NO
[2023-07-09 16:57] LABS: Basophils Percent Auto 0.3 % (0-2); Eosinophils Absolute Auto 0.4 X10*3/uL (0.0-0.4); Eosinophils Percent Auto 4.2 % (0-4); Hematocrit 39.6 % (37.0-47.0); Hemoglobin 12.9 g/dl (12.0-16.0); Imm Gran Abs Auto 0.02 X10*3/uL (0.00-0.03); Imm Gran Pct Auto 0.2 % (0.0-0.4); Lymphocytes Absolute Auto 1.8 X10*3/uL (1.2-4.9); Lymphocytes Percent Auto 19.7 % (20-40); Mean Corpuscular HGB Conc 32.6 g/dl (31.0-35.0); Mean Corpuscular Hemoglobin 27.9 pg (27.0-33.0); Mean Corpuscular Volume 85.5 fL (80.0-98.0); Mean Platelet Volume 11.8 fL (9.4-12.3); Monocytes Absolute Auto 0.7 X10*3/uL (0.1-1.2); Monocytes Percent Auto 7.9 % (2-11); Neutrophils Percent Auto 67.7 % (45-73); Platelet Count 293 X10*3/uL (160-400); Red Blood Count 4.63 X10*6/uL (4.20-5.50); Red Cell Distribution Width 13.3 % (11.0-16.0); White Blood Count 8.9 X10*3/uL (4.8-10.8)
[2023-07-09 17:26] LABS: Estimated Average Glucose 131 mg/dL; Hemoglobin A1C 148.7876 umol/L; Hemoglobin A1c % 6.2 %
[2023-07-09 17:29] LABS: Cholesterol 172 mg/dL; HDL Cholesterol 47 mg/dL; LDL Cholesterol Calculated 111 mg/dl; Triglycerides 72 mg/dL
[2023-07-09 17:32] LABS: Alanine Aminotransferase 20 U/L (0-31); Albumin Level 4.4 g/dL (3.5-5.0); Alkaline Phosphatase 77 U/L (39-117); Anion Gap 13 (12-20); Aspartate Amino Transferase 19 U/L (5-31); Bilirubin Total 0.2 mg/dL (0.0-1.0); Blood Urea Nitrogen 13 mg/dL (9-16); Calcium 10.3 mg/dL (8.4-10.2); Carbon Dioxide 26 mmol/L (22-29); Chloride 106 mmol/L (96-108); Estimated Glomerular Filt Rate > 60; Glucose Random 96 mg/dL (60-115); Potassium 4.2 mmol/L (3.3-5.1); Sodium 141 mmol/L (135-145); Total Protein 7.7 g/dL (6.5-8.0)
[2023-07-09 17:46] LABS: TSH reflex Free T4 1.67 uIU/mL (0.32-4.0)
[2023-07-09 17:58] LABS: Folate 12.3 ng/mL (> or = 4.0); Vitamin B12 472 pg/mL (200-900)
[2023-07-09 18:55] LABS: Reflex LDLD? No
== END 2023-07-09 15:58 | disposition home or self-care (01) ==
LOC: HO.LAB 15:57
PROVIDERS: PCP Family Medicine; Visit Provider Family Medicine
DX: R23.2 Flushing (principal); R73.03 Prediabetes; L74.9 Eccrine sweat disorder, unspecified; Z13.220 Encounter for screening for lipoid disorders
CPT/HCPCS: 36415; 80053; 80061; 82607; 82746; 83036; 84443; 85025

== ENCOUNTER 2023-07-11 12:03 | Outpatient (REF) | payer OTHER, SELFPAY ==
[2023-07-19 09:20] LABS: Hydroindolacetic Acid,5- 3.7 mg/24 h (< OR = 6.0); Total Volume 1100 mL
== END 2023-07-11 12:04 | disposition home or self-care (01) ==
LOC: HO.LNP 12:03
PROVIDERS: Visit Provider Family Medicine
DX: L74.9 Eccrine sweat disorder, unspecified (principal); R23.2 Flushing
CPT/HCPCS: 81050; 83497

== ENCOUNTER 2023-07-30 10:52 | Outpatient (AMB) | payer OTHER, SELFPAY ==
--- NOTE | 2023-07-30 10:54 | A.OFFVIS_ITS ---
Intake Vital Signs 07/30/23 10:56 Height 5 ft 3 in Weight 184 lb BMI 32.6 BP 98/66 Blood Pressure Location Lt brachial Position Sitting Pulse 99 Pulse Source Doppler Pulse Oximetry (%) 95 Oxygen Delivery Method Room Air Intake Visit Reasons: Asthma/FARTUN Allergies budesonide [From SYMBICORT] Allergy (Intermediate, Verified 07/30/23 10:57) TREMOR formoterol [From SYMBICORT] Allergy (Intermediate, Verified 07/30/23 10:57) TREMOR sulfamethoxazole [From BACTRIM] Allergy (Intermediate, Verified 07/30/23 10:57) RASH trimethoprim [From BACTRIM] Allergy (Intermediate, Verified 07/30/23 10:57) RASH Sulfa (Sulfonamide Antibiotics) Allergy (Unknown, Verified 07/30/23 10:57) Unknown Symbicort Allergy (Unknown, Uncoded 04/07/23 11:35) Unknown HPI Asthma/FARTUN HPI Details 52-year-old lady, nonsmoker, previously seen by Dr. Loco, before his custodial, for underlying asthma and allergies now presents to transfer her care. Patient states that she has been using Breo and albuterol MDI with good control of her underlying symptoms. She denies recent exacerbations. 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 She denies recent pulmonary function testing. She denies family history of lung disease. She denies exposure to industrial dusts. [facility] Medical History (Updated 07/30/23 @ 13:07 by Uriel Pederson MD) Wheelchair dependence Edema of both lower extremities Hx of cerebral palsy GERD (gastroesophageal reflux disease) Asthma Alopecia Surgical History History of surgery Hx of appendectomy History of esophagogastroduodenoscopy (EGD) Hx of colonoscopy Hx of lithotripsy Social History Alcohol intake: never Patient Tobacco Use Status: Never used Tobacco Current occupational status: disabled Review of Systems Const Denies daytime sleepiness, Denies excessive sweating, Denies fatigue, Denies fever(s), Denies lethargy, Denies malaise, Denies night sweats, Denies snoring and Denies weight loss Eyes Denies blurry vision and Denies itchy eyes ENT Denies nasal congestion, Denies post nasal drip, Denies sinus pain, Denies sinus pressure and Denies other ( Thrush) Card Denies chest pain, Denies pedal edema, Denies dyspnea, Denies orthopnea and Denies paroxysmal nocturnal dyspnea Resp Denies cough, Denies hemoptysis, Denies excessive phlegm production, Denies dyspnea, Denies snoring and Denies wheezing GI Denies abdominal pain and Denies heartburn Musc Denies myalgias, Denies arthralgias and Denies joint swelling Skin/Breast Denies rash Neuro Denies memory loss and Denies seizure-like activity Psych Denies abnormal sleep pattern, Denies anxiety and Denies memory loss Endo Denies excessive sweating, Denies fatigue and Denies heat intolerance Craig/Lymph Denies easy bruising Aller/Immun Denies itchy eyes, Denies seasonal rhinorrhea and Denies wheezing Physical Exam Vital Signs: Last Vital Signs Pulse 99 07/30/23 10:56 BP 98/66 07/30/23 10:56 Pulse Ox 95 07/30/23 10:56 Oxygen Delivery Method Room Air 07/30/23 10:56 BMI result Body Mass Index 32.6 Const General: no acute distress and alert Nutritional Appearance: obese Orientation/consciousness: Other orientation findings ( oriented) HEENT Head: Yes atraumatic Eyes General: appearance normal, both eyes and all related structures Sclerae: sclerae normal EOM: EOMs intact bilaterally Neck Neck: Yes supple Lymphatic: no lymphadenopathy noted Resp Effort & Inspection: normal respiratory effort and no use of accessory muscles Auscultation: clear to auscultation bilaterally Cardio Rate: regular rate Rhythm: regular rhythm Heart sounds: no gallops, no murmurs and no rubs Skin General skin exam: other ( warm) Extrem General: No clubbing, No cyanosis and No edema Assessment & Plan Assessment & Plan (1) Environmental allergies: Code(s): Z91.09 - Other allergy status, other than to drugs and biological substances Plan: Appears to be well controlled on Singulair. Will request results of recent allergy testing from [facility]. Continue Singulair. (2) Asthma: Code(s): J45.909 - Unspecified asthma, uncomplicated Plan: Unclear severity. Will request pulmonary function testing. Will continue on Breo and albuterol MDI at this time. Orders: Orders PFT pulmonary function test Today J45.909 - Unspecified asthma, uncomplicated Coding Level of Care Code New Pt Level 4 (21942) Diagnoses Environmental allergies Z91.09 Asthma J45.909
[2023-07-30 10:56] VITALS: BP 98/66; PULSE 99; O2SAT 95; BMI 32.6
== END 2023-07-30 11:24 | disposition home or self-care (01) ==
PROVIDERS: PCP Family Medicine; Visit Provider Internal Medicine Pulmonary Disease
DX: Z91.09 Other allergy status, other than to drugs and biological substances (principal); J45.909 Unspecified asthma, uncomplicated
CPT/HCPCS: 99204

== ENCOUNTER → 2023-07-30 10:52 | Outpatient (BNVA) | payer OTHER, SELFPAY | PROVIDERS: PCP Family Medicine; Visit Provider Internal Medicine Pulmonary Disease | DX: J45.909 Unspecified asthma, uncomplicated (principal); G47.33 Obstructive sleep apnea (adult) (pediatric); Z91.09 Other allergy status, other than to drugs and biological substances | CPT/HCPCS: 99202 ==

== ENCOUNTER 2023-08-25 14:29 | Outpatient (REF) | payer OTHER, SELFPAY | END 2023-08-25 14:30 | disposition home or self-care (01) | LOC: HO.RESP 14:29 | PROVIDERS: PCP Family Medicine; Visit Provider Internal Medicine Pulmonary Disease | DX: Z13.89 Encounter for screening for other disorder (principal) ==

== ENCOUNTER 2023-09-09 11:07 | Outpatient (AMB) | payer OTHER, SELFPAY ==
[2023-09-09 11:25] VITALS: BP 84/57; PULSE 86; O2SAT 99
--- NOTE | 2023-09-09 11:25 | A.OFFVIS_ITS ---
Intake Vital Signs 09/09/23 11:25 Height 5 ft 3 in BP 84/57 L Blood Pressure Location Rt brachial Position Sitting Pulse 86 Pulse Source Doppler Pulse Oximetry (%) 99 Oxygen Delivery Method Room Air Intake Visit Reasons: Asthma/FARTUN Allergies budesonide [From SYMBICORT] Allergy (Intermediate, Verified 09/09/23 11:27) TREMOR formoterol [From SYMBICORT] Allergy (Intermediate, Verified 09/09/23 11:27) TREMOR sulfamethoxazole [From BACTRIM] Allergy (Intermediate, Verified 09/09/23 11:27) RASH trimethoprim [From BACTRIM] Allergy (Intermediate, Verified 09/09/23 11:27) RASH Sulfa (Sulfonamide Antibiotics) Allergy (Unknown, Verified 09/09/23 11:27) Unknown Symbicort Allergy (Unknown, Uncoded 04/07/23 11:35) Unknown HPI Asthma/FARTUN HPI Details 52-year-old lady, nonsmoker, now seen fo r asthma, FARTUN, and environmental allergies. Patient has been using Breo and albuterol MDI with good control of her asthma symptoms. She is also on Singulair further allergic component. She denies any recent exacerbations. Her sleep apnea symptoms are well controlled on current CPAP therapy. [facility] Medical History (Updated 07/30/23 @ 13:07 by Uriel Pederson MD) Wheelchair dependence Edema of both lower extremities Hx of cerebral palsy GERD (gastroesophageal reflux disease) Asthma Alopecia Surgical History History of surgery Hx of appendectomy History of esophagogastroduodenoscopy (EGD) Hx of colonoscopy Hx of lithotripsy Social History Alcohol intake: never Patient Tobacco Use Status: Never used Tobacco Current occupational status: disabled Review of Systems Const Denies daytime sleepiness, Denies excessive sweating, Denies fatigue, Denies fev er(s), Denies lethargy, Denies malaise, Denies night sweats, Denies snoring and Denies weight loss Eyes Denies blurry vision and Denies itchy eyes ENT Denies nasal congestion, Denies post nasal drip, Denies sinus pain, Denies sinus pressure and Denies other ( Thrush) Card Denies chest pain, Denies pedal edema, Denies dyspnea, Denies orthopnea and Denies paroxysmal nocturnal dyspnea Resp Denies cough, Denies hemoptysis, Denies excessive phlegm production, Denies dyspnea, Denies snoring and Denies wheezing GI Denies abdominal pain and Denies heartburn Musc Denies myalgias, Denies arthralgias and Denies joint swelling Skin/Breast Denies rash Neuro Denies memory loss and Denies seizure-like activity Psych Denies abnormal sleep pattern, Denies anxiety and Denies memory loss Endo Denies excessive sweating, Denies fatigue and Denies heat intolerance Craig/Lymph Denies easy bruising Aller/Immun Denies itchy eyes, Denies seasonal rhinorrhea and Denies wheezing Physical Exam Vital Signs: Last Vital Signs Pulse 86 09/09/23 11:25 BP 84/57 L 09/09/23 11:25 Pulse Ox 99 09/09/23 11:25 Oxygen Delivery Method Room Air 09/09/23 11:25 Const General: no acute distress and alert Nutritional Appearance: not obese Orientation/consciousness: Other orientation findings ( oriented) HEENT Head: Yes atraumatic Eyes General: appearance normal, both eyes and all related structures Sclerae: sclerae normal EOM: EOMs intact bilaterally Neck Neck: Yes supple Lymphatic: no lymphadenopathy noted Resp Effort & Inspection: normal respiratory effort and no use of accessory muscles Auscultation: clear to auscultation bilaterally Cardio Rate: regular rate Rhythm: regular rhythm Heart sounds: no gallops, no murmurs and no rubs Skin General skin exam: other ( warm) Extrem General: No clubbing, No cyanosis and No edema Assessment & Plan Assessment & Plan (1) Asthma: Code(s): J45.909 - Unspecified asthma, uncomplicated Plan: Well controlled current regimen of Breo and albuterol MDI. Continue current regimen. (2) FARTUN (obstructive sleep apnea): Comment: Moderately severe FARTUN. The total AHI was 24 with oxygen sukh was 72%. Code(s): G47.33 - Obstructive sleep apnea (adult) (pediatric) Plan: Well controlled on current CPAP therapy. Continue CPAP therapy. (3) Environmental allergies: Code(s): Z91.09 - Other allergy status, other than to drugs and biological substances Plan: Well controlled on Singulair. Continue current regimen. Coding Level of Care Code Est Pt Level 4 (02400) Diagnoses Asthma J45.909 FARTUN (obstructive sleep apnea) G47.33 Environmental allergies Z91.09
== END 2023-09-09 11:42 | disposition home or self-care (01) ==
PROVIDERS: PCP Family Medicine; Visit Provider Internal Medicine Pulmonary Disease
DX: J45.909 Unspecified asthma, uncomplicated (principal); G47.33 Obstructive sleep apnea (adult) (pediatric); Z91.09 Other allergy status, other than to drugs and biological substances
CPT/HCPCS: 99214

== ENCOUNTER → 2023-09-09 11:07 | Outpatient (BNVA) | payer OTHER, SELFPAY | PROVIDERS: PCP Family Medicine; Visit Provider Internal Medicine Pulmonary Disease | DX: J45.909 Unspecified asthma, uncomplicated (principal); Z91.09 Other allergy status, other than to drugs and biological substances; G47.33 Obstructive sleep apnea (adult) (pediatric); Z99.89 Dependence on other enabling machines and devices | CPT/HCPCS: 99212 ==

== ENCOUNTER 2023-10-30 13:45 | Outpatient (RCR) | payer OTHER, SELFPAY | END 2023-12-18 17:00 | disposition home or self-care (01) | LOC: HO.WCC 13:45 | PROVIDERS: PCP Family Medicine; Visit Provider Physician Assistant | DX: L97.812 Non-pressure chronic ulcer of other part of right lower leg with fat layer exposed (principal); I73.9 Peripheral vascular disease, unspecified; I87.2 Venous insufficiency (chronic) (peripheral); R60.0 Localized edema; G80.9 Cerebral palsy, unspecified; Z99.3 Dependence on wheelchair | CPT/HCPCS: 11042; 99212; 99213 ==

== ENCOUNTER 2023-12-02 13:00 | Outpatient (REF) | payer OTHER, SELFPAY ==
--- NOTE | ~2023-12-02 | MM_ITS ---
EXAMINATION: BONE DENSITOMETRY CLINICAL INDICATION: Osteoporosis with current pathological fracture. COMPARISON: Previous BD dated 09/17/2021 and baseline BD dated 07/15/2007. TECHNIQUE: Using a [employer] DXA System (software version: 13.1) manufactured by [employer], dual-energy x-ray absorptiometry was performed of the lumbar spine and left hip. The images are of good technical quality. Summary results are attached. FINDINGS: LEFT FEMUR, NECK: Current: BMD 0.710 g/cm2, Z-score -1.8, T-score -2.4, osteopenia. Prior: BMD 0.680 g/cm2. Baseline: BMD 0.755 g/cm2. LEFT FEMUR, TOTAL: Current: BMD 0.730 g/cm2, Z-score -2.0, T-score -2.2, osteopenia, 4.9% decrease from previous, 9.3% decrease from baseline (<5% change is not significant). Prior: BMD 0.768 g/cm2. Baseline: BMD 0.805 g/cm2. AP SPINE L1-L4: Current: BMD 0.949 g/cm2, Z-score -1.9, T-score -1.9, osteopenia, 1.5% increase from previous, 1.9% decrease from baseline (<5% change is not significant). Prior: BMD 0.935 g/cm2. Baseline: BMD 0.967 g/cm2. IDENTIFIED RISK FACTORS: Early menopause, family history (parent hip fracture), secondary osteoporosis. HISTORY OF FRACTURE: None listed. MEDICATIONS: Calcium, vitamin D. MM/XR DEXA axial skeleton IMPRESSION: 1. DIAGNOSIS: Osteopenia based on the lowest T-score value of -2.4 in the femoral neck applying World Health Organization criteria. 2. 10-YEAR FRACTURE RISK PREDICTION, FRAX: Major osteoporotic fracture (clinical spine, forearm, hip or shoulder) 7.5%. Hip fracture 0.7%. 3. Treatment Recommendations: NOF guidelines recommend consideration for treatment in postmenopausal women and men age 50 and older presenting with the following: -A hip or vertebral (clinical or morphometric) fracture. -T-score less than or equal to -2.5 at the femoral neck or spine after appropriate evaluation to exclude secondary causes. -Low bone mass at the hip or spine and a 10-year fracture probability by FRAX of greater than or equal to 3% for hip fracture or greater than or equal to 20% for major osteoporotic fracture based on the [place] adapted WHO algorithm. 4. Other Recommendations: All treatment decisions require clinical judgment and consideration of individual patient factors, including patient preferences, comorbidities, previous drug use, risk factors not captured in the FRAX model (e.g. frailty, falls, vitamin D deficiency, increased bone turnover, interval significant decline in bone density) and possible under or overestimation of fracture risk by FRAX. Additional medical evaluation for secondary cause of low bone mineral density may be appropriate. FUTURE SCAN RECOMMENDATION: People with diagnosed cases of osteoporosis or at high risk for fracture should have regular bone mineral density tests. For patients eligible for Medicare, routine testing is allowed once every 2 years. The testing frequency can be increased to one year for patients who have rapidly progressing disease, those who are receiving or discontinuing medical therapy to restore bone mass, or have additional risk factors.
== END 2023-12-02 13:01 | disposition home or self-care (01) ==
LOC: HO.MAMMO 13:00
PROVIDERS: PCP Family Medicine; Visit Provider Family Medicine
DX: M80.80XS Other osteoporosis with current pathological fracture, unspecified site, sequela (principal); Z78.0 Asymptomatic menopausal state
CPT/HCPCS: 77080

== ENCOUNTER 2023-12-07 10:07 | Outpatient (REF) | payer OTHER, SELFPAY ==
[2023-12-07 10:21] LABS: MANUAL DIFF FLAG NO
[2023-12-07 11:22] LABS: Basophils Percent Auto 0.4 % (0-2); Eosinophils Absolute Auto 0.3 X10*3/uL (0.0-0.4); Eosinophils Percent Auto 3.9 % (0-4); Hematocrit 39.6 % (37.0-47.0); Hemoglobin 12.7 g/dl (12.0-16.0); Imm Gran Abs Auto 0.02 X10*3/uL (0.00-0.03); Imm Gran Pct Auto 0.3 % (0.0-0.4); Lymphocytes Absolute Auto 1.3 X10*3/uL (1.2-4.9); Lymphocytes Percent Auto 18.8 % (20-40); Mean Corpuscular HGB Conc 32.1 g/dl (31.0-35.0); Mean Corpuscular Hemoglobin 27.7 pg (27.0-33.0); Mean Corpuscular Volume 86.3 fL (80.0-98.0); Monocytes Absolute Auto 0.5 X10*3/uL (0.1-1.2); Monocytes Percent Auto 7.6 % (2-11); Neutrophils Absolute Auto 4.8 x10*3/uL (2.0-8.3); Platelet Count 301 X10*3/uL (160-400); Red Blood Count 4.59 X10*6/uL (4.20-5.50); Red Cell Distribution Width 12.9 % (11.0-16.0)
[2023-12-07 11:27] LABS: Estimated Average Glucose 128 mg/dL; Hemoglobin A1c % 6.1 % (<6.0)
[2023-12-07 12:05] LABS: Alanine Aminotransferase 25 U/L (0-31); Albumin Level 4.4 g/dL (3.5-5.0); Alkaline Phosphatase 71 U/L (39-117); Anion Gap 13 (12-20); Aspartate Amino Transferase 22 U/L (5-31); Bilirubin Total 0.4 mg/dL (0.0-1.0); Blood Urea Nitrogen 15 mg/dL (9-16); Calcium 10.1 mg/dL (8.4-10.2); Carbon Dioxide 28 mmol/L (22-29); Chloride 105 mmol/L (96-108); Cholesterol 167 mg/dL (<200); Estimated Glomerular Filt Rate > 60; Glucose Random 89 mg/dL (60-115); HDL Cholesterol 43 mg/dL (>40); LDL Cholesterol Calculated 110 mg/dL (<100); Potassium 4.1 mmol/L (3.3-5.1); Sodium 142 mmol/L (135-145); Total Protein 7.6 g/dL (6.5-8.0); Triglycerides 71 mg/dL (<150)
[2023-12-07 12:11] LABS: TSH reflex Free T4 3.01 uIU/mL (0.32-4.0)
[2023-12-07 12:13] LABS: Reflex LDLD? No
== END 2023-12-07 10:08 | disposition home or self-care (01) ==
LOC: HO.LAB 10:07
PROVIDERS: PCP Family Medicine; Visit Provider Family Medicine
DX: R53.83 Other fatigue (principal); R73.03 Prediabetes; E66.9 Obesity, unspecified; Z68.34 Body mass index [BMI] 34.0-34.9, adult
CPT/HCPCS: 36415; 80053; 80061; 83036; 84443; 85025

== ENCOUNTER 2024-03-15 14:06 | Outpatient (AMB) | payer OTHER, SELFPAY ==
--- NOTE | 2024-03-15 14:10 | MHC.OFFVIS ---
Vital Signs 03/15/24 14:17 Height 5 ft 3 in Weight 5 lb 3 oz BMI 0.9 Intake Visit Reasons: follow up sleep - Confirmed Intake Note: Patient presents for sleep issues. Allergies budesonide [From SYMBICORT] Allergy (Intermediate, Verified 03/15/24 14:17) TREMOR formoterol [From SYMBICORT] Allergy (Intermediate, Verified 03/15/24 14:17) TREMOR sulfamethoxazole [From BACTRIM] Allergy (Intermediate, Verified 03/15/24 14:17) RASH trimethoprim [From BACTRIM] Allergy (Intermediate, Verified 03/15/24 14:17) RASH Sulfa (Sulfonamide Antibiotics) Allergy (Unknown, Verified 03/15/24 14:17) Unknown Symbicort Allergy (Unknown, Uncoded 03/15/24 14:17) Unknown HPI Comments Details: 53 y/o female patient presents for follow up FARTUN on CPAP. Pt reports she sleeps better with CPAP for 7 hours and feels more energy during daytime. Pt had Covid-19 last month and still recovering. The CPAP compliance and therapy response (12/10/23-03/08/24) reviewed. She is on APAP 4-8cmH2O. The usage days 98% and average usage hours 6 hours 40 min. The max pressure is 8 and AHI was 1.4. The home sleep study result was moderately severe FARTUN. The AHI was 24/hr and snoring for 46 % of sleep time. Nocturnal hypoxemia noted with average O2 sat 91% and lowest O2 sat 72%. O2 sat below 88% for 27 min. Pt had a titration study done, and her breathing and oxygenation stabilized at 4-8cmH2O. Pt reports she feels difficulty breathing sometimes with CPAP. [facility] Medical History (Updated 07/30/23 @ 13:07 by Uriel Pederson MD) Wheelchair dependence Edema of both lower extremities Hx of cerebral palsy GERD (gastroesophageal reflux disease) Asthma Alopecia Surgical History History of surgery Hx of appendectomy History of esophagogastroduodenoscopy (EGD) Hx of colonoscopy Hx of lithotripsy Social History Alcohol intake: never Patient Tobacco Use Status: Never used Tobacco Current occupational status: disabled Review of Systems Const All systems reviewed & are unremarkable except as noted in HPI and below ENT Reports Normal hearing present Neuro Reports Normal hearing present Physical Exam Vital Signs: BMI result Body Mass Index 0.9 Const General: cooperative Orientation/consciousness: patient oriented x3 Limitations: wheelchair Eyes Other: right eye exotropia Neck Neck: Yes supple Resp Effort & Inspection: normal respiratory effort and able to speak in complete sentences Neuro Other: right upper extremity and right lower extremity no movement due to hx of cerebral palsy. General: patient oriented x3 Cranial nerves: Yes Midline tongue present, Yes Normal hearing present and Yes Ability to bilaterally rotate head present Cognition (Neuro): normal cognition Psych Appearance: grossly normal Mental Status: mental status grossly normal Affect: normal affect Attitude: cooperative Assessment & Plan Assessment & Plan (1) FARTUN (obstructive sleep apnea): Comment: Moderately severe FARTUN. The total AHI was 24 with oxygen sukh was 72%. Code(s): G47.33 - Obstructive sleep apnea (adult) (pediatric) Category: Medical Plan Changed setting to CPAP at 8cmH2O. Stressed compliance, use CPAP nightly and more than 4 hours. Clean mask and tubing regularly. Coding Level of Care Code Est Pt Level 3 (94235) Diagnoses FARTUN (obstructive sleep apnea) G47.33
== END 2024-03-15 14:29 | disposition home or self-care (01) ==
PROVIDERS: Visit Provider Nurse Practitioner Family
DX: G47.33 Obstructive sleep apnea (adult) (pediatric) (principal)
CPT/HCPCS: 99213

== ENCOUNTER → 2024-03-15 14:06 | Outpatient (BNVA) | payer OTHER, SELFPAY | PROVIDERS: Visit Provider Nurse Practitioner Family | DX: G47.33 Obstructive sleep apnea (adult) (pediatric) (principal); Z99.89 Dependence on other enabling machines and devices | CPT/HCPCS: 99212 ==

== ENCOUNTER → 2024-03-21 12:30 | Outpatient (BNV) | payer OTHER, SELFPAY | PROVIDERS: PCP Family Medicine; Visit Provider Radiology Diagnostic Radiology | DX: Z12.31 Encounter for screening mammogram for malignant neoplasm of breast (principal) | CPT/HCPCS: 77063; 77067 ==

== ENCOUNTER 2024-03-21 12:35 | Outpatient (REF) | payer OTHER, SELFPAY | END 2024-03-21 12:36 | disposition home or self-care (01) | LOC: HO.MAMMO 12:35 | PROVIDERS: PCP Family Medicine; Visit Provider Family Medicine | DX: Z12.31 Encounter for screening mammogram for malignant neoplasm of breast (principal) | CPT/HCPCS: 77063; 77067 ==

== ENCOUNTER 2024-03-22 11:19 | Outpatient (AMB) | payer OTHER, SELFPAY ==
[2024-03-22 11:20] VITALS: BP 104/62; PULSE 95; O2SAT 98
--- NOTE | 2024-03-22 11:20 | A.OFFVIS_ITS ---
Vital Signs 03/22/24 11:20 Height 5 ft 3 in BP 104/62 Blood Pressure Location Lt brachial Position Sitting Pulse 95 Pulse Source Doppler Pulse Oximetry (%) 98 Oxygen Delivery Method Room Air Intake Visit Reasons: Asthma/FARTUN Allergies budesonide [From SYMBICORT] Allergy (Intermediate, Verified 03/22/24 11:27) TREMOR formoterol [From SYMBICORT] Allergy (Intermediate, Verified 03/22/24 11:27) TREMOR sulfamethoxazole [From BACTRIM] Allergy (Intermediate, Verified 03/22/24 11:27) RASH trimethoprim [From BACTRIM] Allergy (Intermediate, Verified 03/22/24 11:27) RASH Sulfa (Sulfonamide Antibiotics) Allergy (Unknown, Verified 03/22/24 11:27) Unknown Symbicort Allergy (Unknown, Uncoded 03/15/24 14:17) Unknown HPI HPI Asthma/FARTUN: Details: 52-year-old lady, nonsmoker, now seen for asthma, FARTUN, and environmental allergies. Patient has been using Breo and albuterol MDI with good control of her asthma symptoms. She is also on Singulair for the allergic component. Patient had recent exacerbation treated by her primary care with a 5 day course of Augmentin with significant improvement and now she is back at baseline. Today she does worsening orthopnea and paroxysmal nocturnal dyspnea symptoms. Her sleep apnea symptoms are well controlled on current CPAP therapy. [facility] Medical History (Updated 03/22/24 @ 11:39 by Uriel Pederson MD) Wheelchair dependence Edema of both lower extremities Hx of cerebral palsy GERD (gastroesophageal reflux disease) Asthma Alopecia Surgical History History of surgery Hx of appendectomy History of esophagogastroduodenoscopy (EGD) Hx of colonoscopy Hx of lithotripsy Social History Alcohol intake: never Patient Tobacco Use Status: Never used Tobacco Current occupational status: disabled Review of Systems Const Denies daytime sleepiness, Denies excessive sweating, Denies fatigue, Denies fever(s), Denies lethargy, Denies malaise, Denies night sweats, Denies snoring and Denies weight loss Eyes Denies blurry vision and Denies itchy eyes ENT Denies nasal congestion, Denies post nasal drip, Denies sinus pain, Denies sinus pressure and Denies other ( Thrush) Card Denies chest pain, Reports pedal edema, Denies dyspnea, Reports orthopnea and Denies paroxysmal nocturnal dyspnea Resp Denies cough, Denies hemoptysis, Denies excessive phlegm production, Denies dyspnea, Denies snoring and Denies wheezing GI Denies abdominal pain and Denies heartburn Musc Denies myalgias, Denies arthralgias and Denies joint swelling Skin/Breast Denies rash Neuro Denies memory loss and Denies seizure-like activity Psych Denies abnormal sleep pattern, Denies anxiety and Denies memory loss Endo Denies excessive sweating, Denies fatigue and Denies heat intolerance Craig/Lymph Denies easy bruising Aller/Immun Denies itchy eyes, Denies seasonal rhinorrhea and Denies wheezing Physical Exam Vital Signs: Last Vital Signs Pulse 95 03/22/24 11:20 BP 104/62 03/22/24 11:20 Pulse Ox 98 03/22/24 11:20 Oxygen Delivery Method Room Air 03/22/24 11:20 Const General: no acute distress and alert Nutritional Appearance: not obese Orientation/consciousness: Other orientation findings ( oriented) HEENT Head: Yes atraumatic Eyes General: appearance normal, both eyes and all related structures Sclerae: sclerae normal EOM: EOMs intact bilaterally Neck Neck: Yes supple Lymphatic: no lymphadenopathy noted Resp Effort & Inspection: normal respiratory effort and no use of accessory muscles Auscultation: clear to auscultation bilaterally Cardio Rate: regular rate Rhythm: regular rhythm Heart sounds: no gallops, no murmurs and no rubs Skin General skin exam: other ( warm) Extrem General: No clubbing, No cyanosis and Yes edema (2+ bilateral) Assessment & Plan Assessment & Plan (1) Asthma: Code(s): J45.909 - Unspecified asthma, uncomplicated Category: Medical Plan: Baseline well controlled on Breo and albuterol MDI. Continue current regimen. (2) Environmental allergies: Code(s): Z91.09 - Other allergy status, other than to drugs and biological substances Category: Medical Plan: Well controlled on Singulair. Continue current regimen. (3) FARTUN (obstructive sleep apnea): Comment: Moderately severe FARTUN. The total AHI was 24 with oxygen sukh was 72%. Code(s): G47.33 - Obstructive sleep apnea (adult) (pediatric) Category: Medical Plan: Controlled on current CPAP therapy. Continue current CPAP therapy. (4) Orthopnea: Code(s): R06.01 - Orthopnea Category: Medical Plan: Now with worsening orthopnea and paroxysmal nocturnal dyspnea. Will increase La six to 40 mg daily for 7 days. Medications: New furosemide 20 mg PO DAILY 7 tabs 0RF Coding Level of Care Code Est Pt Level 4 (06843) Diagnoses Asthma J45.909 Environmental allergies Z91.09 FARTUN (obstructive sleep apnea) G47.33 Orthopnea R06.01
== END 2024-03-22 11:38 | disposition home or self-care (01) ==
PROVIDERS: PCP Family Medicine; Visit Provider Internal Medicine Pulmonary Disease
DX: J45.909 Unspecified asthma, uncomplicated (principal); Z91.09 Other allergy status, other than to drugs and biological substances; G47.33 Obstructive sleep apnea (adult) (pediatric); R06.01 Orthopnea
CPT/HCPCS: 99214

== ENCOUNTER → 2024-03-22 11:19 | Outpatient (BNVA) | payer OTHER, SELFPAY | PROVIDERS: PCP Family Medicine; Visit Provider Internal Medicine Pulmonary Disease | DX: J45.909 Unspecified asthma, uncomplicated (principal); G47.33 Obstructive sleep apnea (adult) (pediatric); R06.01 Orthopnea; Z91.09 Other allergy status, other than to drugs and biological substances | CPT/HCPCS: 99212 ==

== ENCOUNTER 2024-03-29 13:03 | Outpatient (REF) | payer OTHER, SELFPAY ==
--- NOTE | ~2024-03-29 | US_ITS ---
EXAMINATION: US RETROPERITONEAL LIMITED (RENAL ONLY) CLINICAL INFORMATION: Calculus of kidney. COMPARISON: Ultrasound renal 03/31/2022 and 12/26/2020. CT abdomen and pelvis 07/29/2018. X-ray KUB 04/28/2018 and 04/07/2018. TECHNIQUE: Real-time imaging of the kidneys. Very limited/difficult exam, patient scanned in wheelchair. Limited visualization due to bowel gas. FINDINGS: RIGHT KIDNEY: 11.1 x 4.0 x 4.4 cm (SAG x AP x TRV). No hydronephrosis. No renal calculi. Renal cortical thickness is normal. Limited visualization. . LEFT KIDNEY: 10.2 x 5.4 x 4.2 cm (SAG x AP x TRV). No hydronephrosis. No renal calculi. Renal cortical thickness is normal. Limited visualization. . US/US renal BI IMPRESSION: No hydronephrosis. No renal calculi. Very limited/difficult exam, patient scanned in wheelchair
== END 2024-03-29 13:04 | disposition home or self-care (01) ==
LOC: HO.US 13:03
PROVIDERS: PCP Family Medicine; Visit Provider Urology
DX: N20.0 Calculus of kidney (principal)
CPT/HCPCS: 36415; 76775; 80053; 81001; 85025; 87086; 87088; 87186

== ENCOUNTER 2024-03-29 16:09 | Outpatient (REF) | payer OTHER, SELFPAY ==
[2024-03-29 18:06] LABS: Basophils Absolute Auto 0.1 X10*3/uL (0.0-0.2); Basophils Percent Auto 0.6 % (0-2); Eosinophils Absolute Auto 0.3 X10*3/uL (0.0-0.4); Eosinophils Percent Auto 3.8 % (0-4); Hematocrit 40.7 % (37.0-47.0); Imm Gran Abs Auto 0.03 X10*3/uL (0.00-0.03); Imm Gran Pct Auto 0.3 % (0.0-0.4); Lymphocytes Absolute Auto 1.7 X10*3/uL (1.2-4.9); Lymphocytes Percent Auto 18.9 % (20-40); MANUAL DIFF FLAG SCAN; Mean Corpuscular HGB Conc 31.9 g/dl (31.0-35.0); Mean Corpuscular Hemoglobin 28.4 pg (27.0-33.0); Mean Corpuscular Volume 89.1 fL (80.0-98.0); Mean Platelet Volume 12.8 fL (9.4-12.3); Monocytes Absolute Auto 0.8 X10*3/uL (0.1-1.2); Monocytes Percent Auto 8.5 % (2-11); Neutrophils Absolute Auto 6.1 x10*3/uL (2.0-8.3); Neutrophils Percent Auto 67.9 % (45-73); PLT CLUMP 1; Red Blood Count 4.57 X10*6/uL (4.20-5.50); Red Cell Distribution Width 13.6 % (11.0-16.0); SCAN SMEAR FLAG 1
[2024-03-29 18:08] LABS: Platelet Count 206 X10*3/uL (160-400)
[2024-03-29 18:24] LABS: SLIDE REVIEW VERIFIED
[2024-03-29 18:30] LABS: Alanine Aminotransferase 25 U/L (0-31); Albumin Level 4.3 g/dL (3.5-5.0); Alkaline Phosphatase 69 U/L (39-117); Anion Gap 16 (12-20); Aspartate Amino Transferase 23 U/L (5-31); Bilirubin Total 0.3 mg/dL (0.0-1.0); Blood Urea Nitrogen 13 mg/dL (9-16); Calcium 10.2 mg/dL (8.4-10.2); Carbon Dioxide 23 mmol/L (22-29); Chloride 107 mmol/L (96-108); Estimated Glomerular Filt Rate > 60; Glucose Random 81 mg/dL (60-115); Potassium 3.9 mmol/L (3.3-5.1); Sodium 142 mmol/L (135-145); Total Protein 7.6 g/dL (6.5-8.0)
[2024-04-01 16:04] LABS: Appearance Urine Cloudy; Color Urine Yellow; Glucose Urine UA Negative (Negative); Leukocyte Esterase Urine Small (1+) (Negative); Nitrite Urine Negative (Negative); UMIC TRIGGER UA YES; Urine Blood Negative (Negative); Urine Ketones Negative (Negative); Urine Protein Trace mg/dL (Neg-Trace)
[2024-04-01 16:21] LABS: Bacteria Urine 4+ (None Seen); Hyaline Casts Urine 0-2 /LPF (0-2); RBC Urine 0-2 /HPF (0-2)
== END 2024-03-29 16:10 | disposition home or self-care (01) ==
LOC: HO.HHCL 16:09
PROVIDERS: Visit Provider Family Medicine
DX: Z13.89 Encounter for screening for other disorder (principal)
CPT/HCPCS: 36415; 80053; 85025

== ENCOUNTER 2024-03-30 14:02 | Outpatient (REF) | payer OTHER, SELFPAY ==
--- NOTE | ~2024-03-30 | MR_ITS ---
EXAMINATION: MR BRAIN WITHOUT CONTRAST CLINICAL INFORMATION: Cerebral palsy. Seizures. COMPARISON: MRI dated 05/20/2021. TECHNIQUE: Multiplanar, multisequence imaging of the brain was performed without contrast. Limited study with motion artifacts. FINDINGS: There are stable chronic patchy areas of T2 hyperintense signal abnormality from chronic encephalomalacia in the periventricular white matter. The lateral borders of the posterior bodies and atria of the lateral ventricles have an undulating patulous appearance, as on prior imaging. Chronic cystic encephalomalacia also again visible medial left occipital lobe. No evidence of hydrocephalus. No diffusion abnormalities are identified to suggest an acute or subacute infarct. No mass effect or midline shift is seen. No hippocampal pathology identified. No focal cortical dysplasia or migrational abnormality is seen. No new brain parenchymal signal abnormality is noted. No extra-axial fluid collections are seen. The brainstem and cerebellum are normal. The gradient refocused acquisition is normal. The craniovertebral junction, marrow signal, and midline structures are normal. The major intracranial flow voids at the level of the [place] of [place] are preserved. The dural venous sinus flow voids are maintained. The mastoid air cells are well aerated. There are worsened obstructive secretions in the asymmetrically narrowed right anterior ethmoid air cells with now complete opacification of the right frontal sinus cavity. The right middle turbinate is abnormally lateralized from presumed atelectasis resulting in obstruction of the right frontoethmoid drainage pathway. Significant rightward nasal septal deviation visible as well. MR/MR head/brain wo con IMPRESSION: Limited study with motion artifacts. No acute intracranial process. 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 Cystic encephalomalacia in the left occipital lobe, as on prior imaging. No hippocampal pathology. Atelectasis resulting in abnormal lateralization of the right middle turbinate, subsequently obstructing the right frontoethmoid sinus drainage pathway and resulting in mucosal opacification of the right anterior ethmoid air cells and right frontal sinus. Recommend follow up ENT evaluation to guide further management.
== END 2024-03-30 14:03 | disposition home or self-care (01) ==
LOC: HO.MRI 14:02
PROVIDERS: PCP Family Medicine; Visit Provider Psychiatry & Neurology Neurology
DX: R56.9 Unspecified convulsions (principal); G80.9 Cerebral palsy, unspecified
CPT/HCPCS: 70551

== ENCOUNTER 2024-04-12 11:32 | Outpatient (AMB) | payer OTHER, SELFPAY ==
--- NOTE | 2024-04-12 11:42 | MHC.OFFVIS ---
Intake Visit Reasons: 1Y US(SET) Intake Note: Patient is Present for Follow Up Urology Medication: None Antibiotic Allergies: Sulfa, Trimethroprim, Blood Thinners: none Allergies budesonide [From SYMBICORT] Allergy (Intermediate, Verified 03/22/24 11:27) TREMOR formoterol [From SYMBICORT] Allergy (Intermediate, Verified 03/22/24 11:27) TREMOR sulfamethoxazole [From BACTRIM] Allergy (Intermediate, Verified 03/22/24 11:27) RASH trimethoprim [From BACTRIM] Allergy (Intermediate, Verified 03/22/24 11:27) RASH Sulfa (Sulfonamide Antibiotics) Allergy (Unknown, Verified 03/22/24 11:27) Unknown Symbicort Allergy (Unknown, Uncoded 03/15/24 14:17) Unknown HPI Comments Details: Radha is a pleasant female. She is a patient of Dr. Michel. She seen for the following urologic issues - nephrolithiasis Yearly evaluation Discussed renal ultrasound no evidence of stones Continue surveillance with fluid intake Nephrolithiasis Here for ongoing assessment Prior intervention - ESWL for renal stone disease Risk factors for stone formation - minimal mobility Imaging - 01/13 renal ultrasound no stone seen - 04/13 renal ultrasound no stone seen - 04/14 renal ultrasound no stone seen, 135 cc residual - 04/15 renal ultrasound no evidence of stone disease Therapeutic plan - encouraged fluid therapy with lemon water, interval surveillance. [facility] Medical History (Updated 03/22/24 @ 11:39 by Uriel Pederson MD) Wheelchair dependence Edema of both lower extremities Hx of cerebral palsy GERD (gastroesophageal reflux disease) Asthma Alopecia Surgical History History of surgery Hx of appendectomy History of esophagogastroduodenoscopy (EGD) Hx of colonoscopy Hx of lithotripsy Social History Alcohol intake: never Patient Tobacco Use Status: Never used Tobacco Current occupational status: disabled Assessment & Plan Assessment & Plan (1) Nephrolithiasis: Code(s): N20.0 - Calculus of kidney Category: Medical Plan Twelve month follow-up renal ultrasound Patient Instructions: Imaging studies, laboratory and physical exam results were discussed and reviewed in detail. No major barriers to patient understanding were identified. An opportunity to ask questions regarding the treatment plan was provided. All questions were answered. The patient expressed understanding and agreement with the above treatment plan. The patient is aware they should contact our office by phone for worsening of their current condition or the appearance of new urologic symptoms. Compliance is encouraged with any medications and followup testing that is ordered. It is a privilege to participate in the urologic care of your patient. If you have any questions or concerns regarding treatment for the above conditions, or other urologic issues, please do not hesitate to contact me. The office telephone contact is [phone]. This note is constructed using voice recognition software. While every effort has been made to ensure accuracy psychologist military personnel errors may have been included. Yours sincerely, Dr Binh Zelaya MD, [facility] - Urology Providers of Expert, Compassionate Care for the Genitourinary System Coding Level of Care Code Est Pt Level 4 (25699) Diagnoses Nephrolithiasis N20.0
== END 2024-04-12 12:05 | disposition home or self-care (01) ==
PROVIDERS: Visit Provider Urology
DX: N20.0 Calculus of kidney (principal)
CPT/HCPCS: 99212

== ENCOUNTER → 2024-04-12 11:32 | Outpatient (BNVA) | payer OTHER, SELFPAY | PROVIDERS: Visit Provider Urology | DX: N20.0 Calculus of kidney (principal) | CPT/HCPCS: 99212 ==

== ENCOUNTER 2024-05-10 14:25 | Outpatient (REF) | payer OTHER, SELFPAY ==
--- NOTE | ~2024-05-10 | US_ITS ---
EXAMINATION: US VENOUS ULTRASOUND WITH DOPPLER LOWER EXTREMITY, RIGHT CLINICAL INFORMATION: Right leg pain. COMPARISON: Venous duplex Doppler ultrasound exam of February 24, 2018 TECHNIQUE: Ultrasound of the deep veins is performed from the hip to the calf with compression sonography and color and pulse Doppler assessment. Spectral analysis with color-flow imaging is performed. FINDINGS: Exam limited by body habitus. There is normal venous compression and respiratory variation and augmented flow. The visualized common femoral vein, superficial femoral vein, profunda femoral vein, popliteal vein, and the trifurcation region shows no evidence of deep venous thrombosis. There is no significant popliteal fossa cyst. If the patient's symptoms persist, followup ultrasound in 5 days 7 days might be of value to exclude proximal propagation from a non-visualized calf vein. US/US venous duplex LE RT IMPRESSION: No DVT demonstrated in the right lower extremity.
--- NOTE | ~2024-05-10 | XR_ITS ---
EXAMINATION: XR ANKLE, RIGHT CLINICAL INFORMATION: Acute right knee pain and ankle pain. Decreased range of motion COMPARISON: Same-day right knee TECHNIQUE: AP, lateral, and mortise views of the right ankle. FINDINGS: The bones are diffusely demineralized. No fracture or dislocation there is marked narrowing of the tibiotalar joint. In the fibular-talar joint. Marked pes planus is noted. XR/XR ankle RT min 3V IMPRESSION: No acute bony abnormality.
--- NOTE | ~2024-05-10 | XR_ITS ---
EXAMINATION: XR HIP, RIGHT CLINICAL INFORMATION: Acute right knee pain. Decreased range of motion COMPARISON: Same-day right knee TECHNIQUE: AP and crosstable lateral views of the right hip FINDINGS: The lateral views of the right hip are suboptimal due to overlying soft tissue on the crosstable lateral view. No fracture or dislocation. Mild narrowing of the hip joint space. Soft tissues are unremarkable. XR/XR hip RT min 2V IMPRESSION: Mild osteoarthritis of the right hip.
--- NOTE | ~2024-05-10 | XR_ITS ---
EXAMINATION: XR KNEE, RIGHT CLINICAL INFORMATION: Right knee pain and swelling COMPARISON: None available. TECHNIQUE: Four views of the right knee. FINDINGS: The bones are diffusely demineralized. No fracture. There is marked elevation of the patella with respect to the distal femur. There is thickening of the infrapatellar tendon. There is marked narrowing of the medial and lateral joint compartments with marginal osteophytes along the lateral joint compartment. No abnormal soft tissue calcification. XR/XR knee RT 3V IMPRESSION: 1. Marked elevation of the patella with respect to the distal femur. This may be related to a tendinous abnormality. 2. Marked osteoarthritis of the medial and lateral joint compartments.
== END 2024-05-10 14:26 | disposition home or self-care (01) ==
LOC: HO.XRAY 14:25
PROVIDERS: PCP Family Medicine; Visit Provider Family Medicine
DX: M25.561 Pain in right knee (principal); Z99.3 Dependence on wheelchair; M25.571 Pain in right ankle and joints of right foot; M79.89 Other specified soft tissue disorders
CPT/HCPCS: 73502; 73562; 73610; 93971

== ENCOUNTER 2024-05-18 14:30 | Outpatient (AMB) | payer OTHER, SELFPAY ==
--- NOTE | 2024-05-18 14:36 | A.OFFVIS_ITS ---
Intake Visit Reasons: Newprob-right knee pain/interested in injection. Intake Note: Radha is 53 year old female who presents today with sister for a evaluation of her right knee pain, DOI 05/08/24. Patient reports she lost balance when she was getting transfer from her bed to her wheel chair. She has been feeling a lot of pain on top of her knee. Allergies budesonide [From SYMBICORT] Allergy (Intermediate, Verified 05/18/24 14:44) TREMOR formoterol [From SYMBICORT] Allergy (Intermediate, Verified 05/18/24 14:44) TREMOR sulfamethoxazole [From BACTRIM] Allergy (Intermediate, Verified 05/18/24 14:44) RASH trimethoprim [From BACTRIM] Allergy (Intermediate, Verified 05/18/24 14:44) RASH Sulfa (Sulfonamide Antibiotics) Allergy (Unknown, Verified 05/18/24 14:44) Unknown Symbicort Allergy (Unknown, Uncoded 03/15/24 14:17) Unknown HPI HPI Newprob-right knee pain/interested in injection.: Details: 53-year-old female who presents in the office today for an evaluation of right knee pain. The patient called?the Family Medicine office on 05/09/2024 with a complaint of worsening chronic right knee pain. She also reported worsening ROM and difficulty with ambulation. Upon presentation to the office the same day the patient reported on 05/08/2024 while transferring from the bed to the wheelchair she ?bent her knee wrong?, requiring automatic tire tester assistance to be returned to the bed. During the encounter she reported pain with ROM of the right ankle and right foot. Per provider note, she was taking naproxen 375 mg PO BID and Tylenol for pain along with application of ice. X-rays were ordered. She was prescribed meloxicam 15 mg PO daily.? ? Patient is being followed by Podiatry for a possible ulcer under the right foot accompanied by pain in the right ankle. ? ? While in the office today, the patient reports she lost balance when transferring from her bed to the wheelchair. She reports ?a lot? of pain on the top of the right knee. ? ? Per referral documentation the patient is wheelchair dependent with a history of cerebral palsy.? ? Patient has a significant medical history of being pre-diabetic with an A1c of 6.1 as of 12/07/2023.? [facility] Medical History (Updated 05/18/24 @ 15:01 by Nydia Barry) Wheelchair dependence Edema of both lower extremities Hx of cerebral palsy GERD (gastroesophageal reflux disease) Asthma Alopecia Surgical History History of surgery Hx of appendectomy History of esophagogastroduodenoscopy (EGD) Hx of colonoscopy Hx of lithotripsy Social History Alcohol intake: never Patient Tobacco Use Status: Never used Tobacco Current occupational status: disabled Review of Systems Const All systems reviewed & are unremarkable except as noted in HPI and below Physical Exam Const General: cooperative and no acute distress Orientation/consciousness: patient oriented x3 Resp Effort & Inspection: normal respiratory effort and able to speak in complete sentences Cardio Peripheral pulses: Peripheral pulses 2+ throughout Skin General skin exam: no rashes or lesions noted Neuro General: patient oriented x3 Extrem Other: Rigth knee no ecchymosis or erythema. Mild joint effusion. No tenderness to palpation to the medial or lateral joint lines. ROM is 45 to 90 degrees. NVI. Office Procedures Joint Injection/Drain Joint Injection/Drain Primary Site: right knee Prep: site was prepped using aseptic technique, ethochloride spray was applied and injection warnings given Injected: 80 mg of, DepoMedrol, with 8 mL of (2% plain lido ) and in the joint Approach Used: anterolateral Procedure: The patient tolerated the procedure well, but had some pain with the injection and there was some relief with the local anesthesia Coding 77929 - Large joint Procedure code (CPT) selection complete Assessment & Plan Assessment & Plan (1) Osteoarthritis of right knee: Code(s): M17.11 - Unilateral primary osteoarthritis, right knee Category: Medical Plan Ms. Chuy Vera is a 53-year-old female who presents in the office today for an evaluation of right knee pain. The patient called?the Family Medicine office on 05/09/2024 with a complaint of worsening chronic right knee pain. She also reported worsening ROM and difficulty with ambulation. Upon presentation to the office the same day the patient reported on 05/08/2024 while transferring from the bed to the wheelchair she ?bent her knee wrong?, requiring automatic tire tester assistance to be returned to the bed. During the encounter she reported pain with ROM of the right ankle and right foot. Per provider note, she was taking naproxen 375 mg PO BID and Tylenol for pain along with application of ice. X- rays were ordered. She was prescribed meloxicam 15 mg PO daily.? ? Patient is being followed by Podiatry for a possible ulcer under the right foot accompanied by pain in the right ankle. ? ? While in the office today, the patient reports she lost balance when transferring from her bed to the wheelchair. She reports ?a lot? of pain on the top of the right knee. ? ? Per referral documentation the patient is wheelchair dependent with a history of cerebral palsy.? ? Patient has a significant medical history of being pre-diabetic with an A1c of 6.1 as of 12/07/2023.? ? The patient was offered a cortisone injection in the right knee with 80 mg of DepoMedrol. The patient was explained the risks, benefits, and alternatives to receiving this injection. After receiving consent for the injection, the patient had the procedure done while in the office today. The patient tolerated the procedure well with no complications.? ? Due to the patient?s history of pre-diabetes, they were instructed to monitor her blood glucose level. The patient was informed that they could see a rise in their numbers and if the numbers became too high, they were instructed to call their PCP. The patient was also informed that they could have facial flushing as a side effect of the injection, but this will pass.? ? Follow-up will be PRN,or sooner if needed.? ? X-rays of the right knee, obtained on 05/10/2024, revealed: ? 1. Marked elevation of the patella with respect to the distal femur. This may be related to a tendinous abnormality.? 2. Marked osteoarthritis of the medial and lateral joint compartments.? Ultrasound of the right lower extremity, obtained on 05/10/2024, revealed: ? No DVT demonstrated in the right lower extremity.? ? Patient Instructions: Scribed by Nydia Barry medical specialist, for Maria R Barros PA-C on 05/18/2024 at 2:45 pm, EST.? Coding Level of Care Code Est Pt Level 3 (50324) Diagnoses Osteoarthritis of right knee M17.11 CPT Codes Coding - 87903 Large joint: 41076 - Large joint ([id number])
== END 2024-05-18 15:13 | disposition home or self-care (01) ==
LOC: HO.HOS 14:30
PROVIDERS: PCP Family Medicine; Visit Provider Physician Assistant
DX: M17.11 Unilateral primary osteoarthritis, right knee (principal)
CPT/HCPCS: 20610; 99213

== ENCOUNTER → 2024-05-18 14:30 | Outpatient (BNVA) | payer OTHER, SELFPAY | PROVIDERS: PCP Family Medicine; Visit Provider Physician Assistant | DX: M17.11 Unilateral primary osteoarthritis, right knee (principal) | CPT/HCPCS: 20610; 99212; J1010 ==

== ENCOUNTER 2024-05-25 14:08 | Outpatient (REF) | payer OTHER, SELFPAY ==
--- NOTE | ~2024-05-25 | MR_ITS ---
EXAMINATION: MR KNEE WITHOUT CONTRAST, RIGHT CLINICAL INFORMATION: Right knee pain and limited mobility COMPARISON: Radiographs 05/10/2024 TECHNIQUE: MRI of the knee without contrast was performed using routine sequences on a high-field scanner. FINDINGS: MENISCI: Medial Meniscus: Intact Lateral Meniscus: Intact LIGAMENTS: Cruciate: Intact Collateral: Intact EXTENSOR MECHANISM: Intact. Marked patella glynn. ARTICULAR CARTILAGE/BONE: Patellofemoral Compartment: Full-thickness cartilage loss with surface remodeling including flattening and areas of concavity along the lateral and to a lesser extent medial trochlea. Underlying marrow edema. This may be chronic or possibly represent recent impaction fractures noting the underlying marrow edema. Medial Compartment: Diffuse cartilage thinning without a focal defect. Lateral Compartment: Cartilage thinning, full-thickness at the posterior aspect of the tibia, and small marginal osteophytes. JOINT FLUID AND BURSAE: No significant joint effusion. Marrow edema at the posteromedial aspect of the fibular head is most likely degenerative. Diffuse muscle fatty atrophy. MR/MR knee RT wo con IMPRESSION: 1. No definite meniscal tear. 2. Marked patella glynn. Surface flattening and areas of mild concavity of the lateral trochlea and medial trochlea with prominent underlying marrow edema. These could represent impaction fractures if there has been a recent fall onto the knee. Alternatively, this may be chronic and degenerative. No significant joint effusion. 3. Mild medial/lateral compartment osteoarthritis. 4. Diffuse muscle fatty atrophy.
== END 2024-05-25 14:09 | disposition home or self-care (01) ==
LOC: HO.MRI 14:08
PROVIDERS: PCP Family Medicine; Visit Provider Family Medicine
DX: M25.561 Pain in right knee (principal)
CPT/HCPCS: 73721

== ENCOUNTER 2024-07-15 13:29 | Outpatient (REF) | payer OTHER, SELFPAY ==
--- NOTE | ~2024-07-15 | US_ITS ---
EXAMINATION: US TRIPLEX LOWER EXTREMITY, BILATERAL CLINICAL INFORMATION: Pain. COMPARISON: Right lower extremity ultrasound 05/10/2024. Left lower extremity ultrasound 05/03/2019. TECHNIQUE: Color-flow triplex imaging with spectral analysis and compression Doppler were performed on the bilateral lower extremities. FINDINGS: The visualized common femoral vein, superficial femoral vein, profunda femoral vein and popliteal venous segments show no evidence of deep venous thrombosis bilaterally, with the caveat that the left mid femoral vein was incompletely evaluated secondary to pain at the moment of the compression, however appears patent on color Doppler. The left calf veins and right peroneal veins were not seen. The right posterior tibialis vein are patent. There is no Robert's cyst. US/US venous duplex LE BI IMPRESSION: No evidence of deep venous thrombosis in the bilateral lower extremities with the caveat of limited evaluation as above. Electronically signed by: Dina Carroll MD 07/15/2024 02:45 PM EDT
[2024-07-15 15:32] LABS: Basophils Percent Auto 0.3 % (0-2); Hemoglobin 12.9 g/dl (12.0-16.0); Monocytes Absolute Auto 0.9 X10*3/uL (0.1-1.2); PLT CLUMP 1; SCAN SMEAR FLAG 1
[2024-07-15 15:33] LABS: Eosinophils Absolute Auto 0.3 X10*3/uL (0.0-0.4); Eosinophils Percent Auto 3.1 % (0-4); Hematocrit 39.1 % (37.0-47.0); Imm Gran Abs Auto 0.05 X10*3/uL (0.00-0.03); Imm Gran Pct Auto 0.6 % (0.0-0.4); Lymphocytes Absolute Auto 1.6 X10*3/uL (1.2-4.9); Lymphocytes Percent Auto 17.3 % (20-40); MANUAL DIFF FLAG SCAN; Mean Corpuscular Hemoglobin 28.7 pg (27.0-33.0); Mean Corpuscular Volume 87.1 fL (80.0-98.0); Mean Platelet Volume 13.1 fL (9.4-12.3); Monocytes Percent Auto 10.3 % (2-11); Neutrophils Absolute Auto 6.1 x10*3/uL (2.0-8.3); Neutrophils Percent Auto 68.4 % (45-73); Red Blood Count 4.49 X10*6/uL (4.20-5.50); Red Cell Distribution Width 13.7 % (11.0-16.0)
[2024-07-15 15:57] LABS: Platelet Count 223 X10*3/uL (160-400); SLIDE REVIEW VERIFIED; White Blood Count 8.9 X10*3/uL (4.8-10.8)
[2024-07-15 16:14] LABS: Erythrocyte Sedimentation Rate 71 MM/HR (0-20)
[2024-07-15 16:16] LABS: Alanine Aminotransferase 18 U/L (0-31); Albumin Level 4.3 g/dL (3.5-5.0); Alkaline Phosphatase 87 U/L (39-117); Anion Gap 20 (12-20); Aspartate Amino Transferase 17 U/L (5-31); Bilirubin Total 0.4 mg/dL (0.0-1.0); Blood Urea Nitrogen 13 mg/dL (9-16); C Reactive Protein 18.68 mg/dL (< or = 0.50); Calcium 10.5 mg/dL (8.4-10.2); Carbon Dioxide 20 mmol/L (22-29); Chloride 105 mmol/L (96-108); Estimated Glomerular Filt Rate > 60; Glucose Random 91 mg/dL (60-115); Potassium 3.5 mmol/L (3.3-5.1); Sodium 141 mmol/L (135-145); Total Protein 8.5 g/dL (6.5-8.0); Uric Acid 4.8 mg/dL (2.4-5.7)
[2024-07-15 16:31] LABS: TSH reflex Free T4 0.19 uIU/mL (0.32-4.0)
[2024-07-15 17:50] LABS: Free T4 (Free Thyroxine) 1.45 ng/dL (0.71-1.85)
== END 2024-07-15 13:30 | disposition home or self-care (01) ==
LOC: HO.US 13:29
PROVIDERS: PCP Family Medicine; Visit Provider Internal Medicine Cardiovascular Disease
DX: I87.2 Venous insufficiency (chronic) (peripheral) (principal); R60.9 Edema, unspecified; M25.571 Pain in right ankle and joints of right foot; I10 Essential (primary) hypertension; R50.9 Fever, unspecified
CPT/HCPCS: 36415; 80053; 84439; 84443; 84550; 85025; 85652; 86140; 93970

== ENCOUNTER 2024-07-18 15:09 | Outpatient (REF) | payer OTHER, SELFPAY | END 2024-07-18 15:10 | disposition home or self-care (01) | LOC: HO.HHCLNP 15:09 | PROVIDERS: Visit Provider Family Medicine | DX: Z13.89 Encounter for screening for other disorder (principal) | CPT/HCPCS: 87086 ==

== ENCOUNTER 2024-07-18 19:00 | Inpatient (IN) | payer OTHER, SELFPAY ==
--- NOTE | ~2024-07-18 | XR_ITS ---
EXAMINATION: XR CHEST CLINICAL INFORMATION: Status post central venous catheter. COMPARISON: Chest radiograph dated 03/11/2018. TECHNIQUE: Frontal view of the chest was obtained. FINDINGS: There is mild cardiomegaly. There is pulmonary vascular congestion, without overt pulmonary edema. Lung volumes are low. No infiltrate, effusion or pneumothorax is seen. A right internal jugular central venous catheter seen with tip situated in the lower right atrium. XR/XR chest 1V IMPRESSION: 1. No pneumothorax is seen status-post central venous catheter placement. 2. There is mild cardiomegaly and pulmonary vascular congestion, without overt pulmonary edema. 3. Lung volumes are diminished. 4. No focal infiltrate is seen. Electronically signed by: Stu Carnes MD 07/18/2024 09:52 PM EDT
--- NOTE | ~2024-07-18 | US_ITS ---
EXAMINATION: US TRIPLEX LOWER EXTREMITY, RIGHT CLINICAL INFORMATION: Swelling, redness, warmth COMPARISON: Bilateral lower fissure may duplex on 07/15/2024 TECHNIQUE: Color-flow triplex imaging with spectral analysis and compression Doppler were performed on the right lower extremity. FINDINGS: Respiratory variation, normal compression and augmented flow are noted throughout the right lower extremity. The visualized common femoral vein, superficial femoral vein, profunda femoral vein, popliteal vein and midcalf peroneal and posterior tibial venous segments show no evidence of deep venous thrombosis. There is no Robert's cyst. US/US venous duplex LE RT IMPRESSION: No evidence of deep venous thrombosis involving the right lower extremity. Electronically signed by: Teresa Daugherty MD 07/19/2024 03:45 AM EDT
--- NOTE | 2024-07-18 19:40 | ED_ITS ---
HPI - General Adult General Chief complaint: General Medical Stated complaint: CELLULTIS Time Seen by Provider: 07/18/24 19:20 Source: patient, family and EMS Mode of arrival: EMS Limitations: no limitations History of Present Illness ED Provider: constance PEREIRA narrative: Patient history of cerebral palsy came here nonhealing cellulitis of the right leg for last 2 weeks patient is getting with cephalexin for last 1 week no fever no chills redness of the right leg is getting worse no open wound Related Data Home Medications ?Medication ?Instructions ?Recorded ?Confirmed albuterol sulfate 90 mcg/actuation 2 puff inhalation Q4H PRN 03/21/21 07/18/24 aerosol inhaler Wheezing/SOB ascorbic acid (vitamin C) 500 mg 500 mg PO DAILY 03/21/21 07/18/24 tablet cholecalciferol (vitamin D3) 25 25 mcg PO DAILY 03/21/21 07/18/24 mcg (1,000 unit) capsule ciclopirox 0.77 % topical cream 1 appl topical BEDTIME 03/21/21 07/18/24 diclofenac sodium 1 % topical gel 1 g topical DAILY PRN Pain 03/21/21 07/18/24 docusate sodium 100 mg capsule 100 mg PO BID 03/21/21 07/18/24 ferrous sulfate 325 mg (65 mg 325 mg PO DAILY 03/21/21 07/18/24 iron) tablet naproxen 375 mg tablet 375 mg PO DAILY 03/21/21 07/18/24 omeprazole 20 mg capsule,delayed 20 mg PO BID@0630,1630 03/21/21 07/18/24 release alendronate 70 mg tablet 70 mg PO TH 04/04/22 07/18/24 amitriptyline 10 mg tablet 10 mg PO BEDTIME 04/04/22 07/18/24 calcium carbonate 500 mg PO BID 04/04/22 07/18/24 triamcinolone acetonide 0.1 % 1 appl topical BID PRN Redness 04/04/22 07/18/24 topical ointment cephalexin 500 mg capsule 500 mg PO Q6H 07/18/24 07/18/24 furosemide 40 mg tablet 40 mg PO DAILY 07/18/24 07/18/24 Previous Rx's ?Medication ?Instructions ?Recorded Breo Ellipta 200 mcg-25 mcg/dose 1 inh inhalation DAILY 30 days #1 06/27/24 powder for inhalation (fluticasone ea furoate-vilanterol) cetirizine 10 mg tablet 10 mg PO DAILY 30 days #30 tabs 07/11/24 montelukast 10 mg tablet 10 mg PO BEDTIME #90 tabs 07/11/24 Allergies Allergy/AdvReac Type Severity Reaction Status Date / Time budesonide [From SYMBICORT] Allergy Intermediate TREMOR Verified 07/18/24 20:11 formoterol [From SYMBICORT] Allergy Intermediate TREMOR Verified 07/18/24 20:11 sulfamethoxazole Allergy Intermediate RASH Verified 07/18/24 20:11 [From BACTRIM] trimethoprim [From BACTRIM] Allergy Intermediate RASH Verified 07/18/24 20:11 Sulfa (Sulfonamide Allergy Unknown Unknown Verified 07/18/24 20:11 Antibiotics) Symbicort Allergy Unknown Unknown Uncoded 07/18/24 20:11 Review of Systems 2 Review of Systems: Yes all other systems are reviewed and are negative PMFSH Past Medical History Medical History Wheelchair dependence Edema of both lower extremities Hx of cerebral palsy GERD (gastroesophageal reflux disease) Asthma Alopecia Surgical History History of surgery Hx of appendectomy History of esophagogastroduodenoscopy (EGD) Hx of colonoscopy Hx of lithotripsy Social History Social History Household Members: Family Housing: House Alcohol intake: never Patient Tobacco Use Status: Never used Tobacco Current occupational status: disabled Physical Exam ED Vital Signs: Vital Signs - 24 hr 07/18/24 20:07 Temperature 97.8 F Pulse Rate 83 Respiratory Rate 14 Blood Pressure 109/76 Pulse Oximetry 98 Oxygen Delivery Method Room Air BMI result Body Mass Index 31.0 Appearance: Alert. Oriented X3. No acute distress. Eyes: PERRLA, ENT: Pharynx normal. Oral Mucosa moist Neck: Normal inspection. Neck supple. CVS: Normal heart rate and rhythm. Pulses normal. Respiratory: No respiratory distress. Equal air entry bilateral, no wheezing/rales/rhonchi Abdomen: Soft and nontender. Bowel sounds are present, Skin: Skin warm and dry. Normal skin color. Normal skin turgor. Extremities: No lower extremity edema. No calf tenderness right leg erythematous involving the hold camp no fluctuant masses no open wounds Neuro: Oriented X 3. No motor deficit. Medications Administered Generic Name Dose Route Start Last Admin Trade Name Freq PRN Reason Stop Dose Admin Enoxaparin Sodium 40 mg 07/18/24 22:45 07/18/24 23:14 Enoxaparin Sodium 40 Mg/0.4 Ml Syringe SUBCUT 40 mg Q24H SAIRA Administration Sodium Chloride 3 ml 07/19/24 00:00 07/19/24 00:14 0.9 % Sodium Chloride Flush 3 Ml Syringe IVFLUSH Not Given QSHIFT SAIRA Discontinued Medications Generic Name Dose Route Start Last Admin Trade Name Freq PRN Reason Stop Dose Admin Sodium Chloride 1,000 mls @ 999 mls/hr 07/18/24 19:46 07/18/24 21:45 Ns IV 07/18/24 20:46 Infused .Q1H1M ONE Infusion Vancomycin HCl 1,000 mg/ 270 mls @ 270 mls/hr 07/18/24 19:46 07/18/24 22:08 Sodium Chloride IV 07/18/24 20:45 Infused ONCE ONE Infusion Vancomycin HCl 1,000 mg/ 270 mls @ 270 mls/hr 07/18/24 22:45 07/19/24 00:14 Sodium Chloride IV 07/18/24 23:44 Infused ONCE ONE Infusion Potassium Chloride 40 meq 07/18/24 22:43 07/18/24 23:14 Potassium Chloride Packet 20 Meq Packet PO 07/18/24 22:44 40 meq ONCE ONE Administration Procedures Central Line Placement Right IJ: Time Out Performed: Yes Patient Placed on Monitor/Pulse Ox: Yes MD Prep: mask, gown and gloves Central Line Prep: Chlorhexidine scrub Local Anesthetic: lidocaine 1% Amount of anesthesia used (mL): 5 Ultrasound Used for Placement: Yes Central Line Lumen Inserted: triple Post Procedure: sutured in place, good blood return, all ports aspirated, flushed, capped and sterile dressing applied Post Procedure X-Ray: tip of catheter in good position and no pneumothorax seen Patient Tolerated Procedure: well Complications: none Medical Decision Making Medical Decision Making MDM Narrative: Patient with worsening of the cellulitis of the right leg poor response to the p.o. antibiotics at home received 1 dose of antibiotic 1 week ago ? Daptomycin will start patient on vancomycin will admit Patient is a poor IV access hands central line was placed in right IJ Differential Diagnosis Differential Diagnoses: The differential diagnosis associated with the presentation includes Admission/Observation Consideration of admission/observation: Escalation of care including admission/observation considered Consult Healthcare Provider Management of the patient was discussed with: Hospitalist Lab Data MDM Lab Attestation statement: I reviewed the patient's lab results. 07/18/24 22:04 07/18/24 20:35 Labs: Lab Results 07/18/24 07/18/24 Range/Units 20:35 22:04 WBC 10.3 (4.8-10.8) X10*3/uL RBC 3.74 L (4.20-5.50) X10*6/uL Hgb 10.6 L (12.0-16.0) g/dl Hct 32.1 L (37.0-47.0) % MCV 85.8 (80.0-98.0) fL MCH 28.3 (27.0-33.0) pg MCHC 33.0 (31.0-35.0) g/dl RDW 13.4 (11.0-16.0) % Plt Count 310 D (160-400) X10*3/uL MPV 10.5 (9.4-12.3) fL Immature Gran % (Auto) 0.8 H (0.0-0.4) % Neut % (Auto) 66.0 (45-73) % Lymph % (Auto) 18.8 L (20-40) % [place] % (Auto) 10.3 (2-11) % Eos % (Auto) 3.9 (0-4) % Baso % (Auto) 0.2 (0-2) % Lymph # (Auto) 1.9 (1.2-4.9) X10*3/uL [place] # (Auto) 1.1 (0.1-1.2) X10*3/uL Eos # (Auto) 0.4 (0.0-0.4) X10*3/uL Baso # (Auto) 0.0 (0.0-0.2) X10*3/uL Abs Immat Gran (auto) 0.08 H (0.00-0.03) X10*3/uL Absolute Neuts (auto) 6.8 (2.0-8.3) x10*3/uL Absolute Nucleated RBC 0.000 (0.0-0.012) X10*3/uL Nucleated RBC % (auto) 0.0 (0.0-0.2) /100WBC Sodium 141 (135-145) mmol/L Potassium 3.0 L (3.3-5.1) mmol/L Chloride 99 (96-108) mmol/L Carbon Dioxide 30 H (22-29) mmol/L Anion Gap 15 (12-20) BUN 20 H (9-16) mg/dL Creatinine 0.86 (0.5-1.4) mg/dL Estim Creat Clear Calc 75.4 Estimated GFR > 60 Random Glucose 113 (60-115) mg/dL Lactic Acid 0.8 (0.5-2.0) mmol/L Calcium 9.7 D (8.4-10.2) mg/dL Total Bilirubin 0.4 (0.0-1.0) mg/dL AST 18 (5-31) U/L ALT 19 (0-31) U/L Alkaline Phosphatase 68 (39-117) U/L Total Protein 7.6 (6.5-8.0) g/dL Albumin 4.0 (3.5-5.0) g/dL Discharge Plan Discharge Clinical Impression: Cellulitis of right lower extremity Patient Disposition: Admitted As Inpatient Interventions: Admission Worksheet (ED) Last Done: 07/18/24 23:29 Discharge Date/Time: 07/19/24 00:47
[2024-07-18 19:46] VITALS: BP 90/63; PULSE 90; O2SAT 96
[2024-07-18 20:07] VITALS: BP 109/76; PULSE 83; RESP 14; TEMP 36.6; O2SAT 98; BMI 31.0
[2024-07-18] MEDS: vancomycin HCL 1,000 MG in 0.9 % Sodium Chloride 250 ML 270 MG IV ×2 (20:41→23:08)
[2024-07-18] MEDS: 0.9 % Sodium Chloride 1,000 ML 999 ML IV (20:41)
--- NOTE | 2024-07-18 20:52 | PC.NURSE ---
Pt medicated per jan. Pts sister at bedside. Plan of care ongoing.
--- NOTE | 2024-07-18 21:01 | PC.NURSE ---
Pt placed on purewick. Plan of care ongoing.
[2024-07-18 21:09] LABS: Lactic Acid 0.8 mmol/L (0.5-2.0)
[2024-07-18 21:12] LABS: Alanine Aminotransferase 19 U/L (0-31); Alkaline Phosphatase 68 U/L (39-117); Anion Gap 15 (12-20); Aspartate Amino Transferase 18 U/L (5-31); Bilirubin Total 0.4 mg/dL (0.0-1.0); Blood Urea Nitrogen 20 mg/dL (9-16); Calcium 9.7 mg/dL (8.4-10.2); Carbon Dioxide 30 mmol/L (22-29); Chloride 99 mmol/L (96-108); Creatinine Clr Calc Pharmacy 75.4; Estimated Glomerular Filt Rate > 60; Glucose Random 113 mg/dL (60-115); Sodium 141 mmol/L (135-145); Total Protein 7.6 g/dL (6.5-8.0)
--- NOTE | 2024-07-18 22:08 | PC.NURSE ---
CBC redraw collected and sent. Plan of care ongoing.
[2024-07-18 22:11] LABS: Basophils Percent Auto 0.2 % (0-2); Eosinophils Absolute Auto 0.4 X10*3/uL (0.0-0.4); Eosinophils Percent Auto 3.9 % (0-4); Hematocrit 32.1 % (37.0-47.0); Hemoglobin 10.6 g/dl (12.0-16.0); Imm Gran Abs Auto 0.08 X10*3/uL (0.00-0.03); Imm Gran Pct Auto 0.8 % (0.0-0.4); Lymphocytes Absolute Auto 1.9 X10*3/uL (1.2-4.9); Lymphocytes Percent Auto 18.8 % (20-40); Mean Corpuscular Hemoglobin 28.3 pg (27.0-33.0); Mean Corpuscular Volume 85.8 fL (80.0-98.0); Mean Platelet Volume 10.5 fL (9.4-12.3); Monocytes Absolute Auto 1.1 X10*3/uL (0.1-1.2); Monocytes Percent Auto 10.3 % (2-11); Neutrophils Absolute Auto 6.8 x10*3/uL (2.0-8.3); Platelet Count 310 X10*3/uL (160-400); Red Blood Count 3.74 X10*6/uL (4.20-5.50); Red Cell Distribution Width 13.4 % (11.0-16.0); White Blood Count 10.3 X10*3/uL (4.8-10.8)
--- NOTE | 2024-07-18 22:36 | P.HPHOSP_ITS ---
History of Present Illness Date of Service: 07/18/24 Chief Complaint: Skin infection This is a 53-year-old female with pertinent history of cerebral palsy, asthma not on home oxygen, FARTUN on CPAP at bedtime, gastroesophageal reflux disease, bilateral dependent leg edema on furosemide who presents to the emergency department for concerns of right leg infection. Patient states she noticed redness, swelling of her right leg that started 6 days prior to presentation. It has been progressive and associated with warmth and pain. Patient started oral Keflex 5 days ago but no improvement in redness, swelling or warmth. Also has associated chills. No fever, chest discomfort, shortness of breath, palpitations, chest pain, abdominal pain, changes in urinary or bowel habits. In the emergency department, patient was given IV vancomycin. Review of Systems 2 Constitutional: Constitutional: Reports chills Cardiovascular: Cardiovascular: Reports no additional cardiovascular complaints Respiratory: Respiratory: Reports no additional respiratory complaints Gastrointestinal: Gastrointestinal: Reports no additional gastrointestinal complaints Genitourinary: Genitourinary: Reports no additional female genitourinary complaints [facility] Medical History Wheelchair dependence Edema of both lower extremities Hx of cerebral palsy GERD (gastroesophageal reflux disease) Asthma Alopecia Surgical History History of surgery Hx of appendectomy History of esophagogastroduodenoscopy (EGD) Hx of colonoscopy Hx of lithotripsy Social History Alcohol intake: never Patient Tobacco Use Status: Never used Tobacco Smoked in Last 30 Days: No Use of substances other than those prescribed or required for medical reasons: No Advance Directives: No Advance Directives Information Provided: No Do you have a plan to hurt others: No Plan Patient : No Current occupational status: disabled Meds Allergies Allergy/AdvReac Type Severity Reaction Status Date / Time budesonide [From SYMBICORT] Allergy Intermediate TREMOR Verified 07/18/24 20:11 formoterol [From SYMBICORT] Allergy Intermediate TREMOR Verified 07/18/24 20:11 sulfamethoxazole Allergy Intermediate RASH Verified 07/18/24 20:11 [From BACTRIM] trimethoprim [From BACTRIM] Allergy Intermediate RASH Verified 07/18/24 20:11 Sulfa (Sulfonamide Allergy Unknown Unknown Verified 07/18/24 20:11 Antibiotics) Symbicort Allergy Unknown Unknown Uncoded 07/18/24 20:11 Active Medications: Current Medications Acetaminophen (Acetaminophen 325 Mg Tablet) 650 mg PO Q6H PRN PRN Reason: Pain, Mild (Pain Scale 1-3), fever or headache Calcium Carbonate (Calcium Carbonate 750 Mg Tab.Chew) 750 mg PO Q4H PRN PRN Reason: Heartburn Magnesium Hydroxide (Milk Of Magnesia 30 Ml Oral.Susp) 30 ml PO DAILY PRN PRN Reason: Constipation Melatonin (Melatonin 3 Mg Tablet) 6 mg PO BEDTIME PRN PRN Reason: Insomnia Sodium Chloride (0.9 % Sodium Chloride Flush 3 Ml Syringe) [facility] [place] Medications ?Medication ?Instructions ?Recorded ?Confirmed ?Last Taken ?Type albuterol sulfate 90 mcg/actuation 2 puff inhalation Q4H PRN 03/21/21 07/18/24 Unknown History aerosol inhaler Wheezing/SOB ascorbic acid (vitamin C) 500 mg 500 mg PO DAILY 03/21/21 07/18/24 07/18/24 12:00 History tablet cholecalciferol (vitamin D3) 25 25 mcg PO DAILY 03/21/21 07/18/24 07/18/24 12:00 History mcg (1,000 unit) capsule ciclopirox 0.77 % topical cream 1 appl topical BEDTIME 03/21/21 07/18/24 07/17/24 History diclofenac sodium 1 % topical gel 1 g topical DAILY PRN Pain 03/21/21 07/18/24 Unknown History docusate sodium 100 mg capsule 100 mg PO BID 03/21/21 07/18/24 07/18/24 12:00 History ferrous sulfate 325 mg (65 mg 325 mg PO DAILY 03/21/21 07/18/24 07/18/24 12:00 History iron) tablet naproxen 375 mg tablet 375 mg PO DAILY 03/21/21 07/18/24 07/18/24 12:00 History omeprazole 20 mg capsule,delayed 20 mg PO BID@0630,1630 03/21/21 07/18/24 07/18/24 12:00 History release alendronate 70 mg tablet 70 mg PO TH 04/04/22 07/18/24 07/14/24 History amitriptyline 10 mg tablet 10 mg PO BEDTIME 04/04/22 07/18/24 07/17/24 History calcium carbonate 500 mg PO BID 04/04/22 07/18/24 07/18/24 12:00 History triamcinolone acetonide 0.1 % 1 appl topical BID PRN Redness 04/04/22 07/18/24 Unknown History topical ointment cephalexin 500 mg capsule 500 mg PO Q6H 07/18/24 07/18/24 07/18/24 12:00 History furosemide 40 mg tablet 40 mg PO DAILY 07/18/24 07/18/24 07/18/24 12:00 History Physical Exam 2 Vital Signs and Narrative: Vital Signs: Last Vital Signs Temp 97.8 F 07/18/24 20:07 Pulse 83 07/18/24 20:07 Resp 14 07/18/24 20:07 BP 109/76 07/18/24 20:07 Pulse Ox 98 07/18/24 20:07 O2 Del Method Room Air 07/18/24 20:07 BMI result Body Mass Index 31.0 Middle-aged female male lying in bed in no distress Neck supple, no JVD Regular rate and rhythm, S1-S2 heard Regular breath sounds bilaterally, no wheezing or crackles appreciated Abdomen soft nontender, no guarding, no rigidity Patient is awake, alert and oriented to self, place, time and person ; no focal motor deficit Psych: Normal mood Right lower extremity with erythema, warmth, tenderness and swelling Results Labs 07/18/24 22:04 07/18/24 20:35 Labs: Laboratory Results - last 24 hr 07/18/24 07/18/24 20:35 22:04 MCV 85.8 MCH 28.3 MCHC 33.0 RDW 13.4 Plt Count 310 D MPV 10.5 Immature Gran % (Auto) 0.8 H Neut % (Auto) 66.0 Lymph % (Auto) 18.8 L [place] % (Auto) 10.3 Eos % (Auto) 3.9 Baso % (Auto) 0.2 Lymph # (Auto) 1.9 [place] # (Auto) 1.1 Eos # (Auto) 0.4 Baso # (Auto) 0.0 Abs Immat Gran (auto) 0.08 H Absolute Neuts (auto) 6.8 Absolute Nucleated RBC 0.000 Nucleated RBC % (auto) 0.0 Anion Gap 15 Estim Creat Clear Calc 75.4 Estimated GFR > 60 Random Glucose 113 Lactic Acid 0.8 Calcium 9.7 D Total Bilirubin 0.4 AST 18 ALT 19 Alkaline Phosphatase 68 Total Protein 7.6 Albumin 4.0 Imaging Radiologist's Impressions: Impressions Chest X-Ray 07/18/24 20:37 IMPRESSION: 1. No pneumothorax is seen status-post central venous catheter placement. 2. There is mild cardiomegaly and pulmonary vascular congestion, without overt pulmonary edema. 3. Lung volumes are diminished. 4. No focal infiltrate is seen. Electronically signed by: Stu Carnes MD 07/18/2024 09:52 PM EDT RP Assessment and Plan (1) Cellulitis of right leg: Status: Acute Plan This is a 53-year-old female with pertinent history of cerebral palsy, asthma not on home oxygen, FARTUN on CPAP at bedtime, gastroesophageal reflux disease who presents to the emergency department for concerns of right leg infection. #. Right lower extremity cellulitis: Will admit patient with IV vancomycin as she failed p.o. outpatient antibiotics. Monitor for improvement. No sepsis. Will obtain venous duplex to rule out DVT. #. Hypokalemia: Repleted #. FARTUN: Continue CPAP at bedtime #. Asthma: No exacerbation during admission. Continue home inhalers #. Bilateral lower extremity edema: On furosemide #. Gastroesophageal reflux disease: On PPI Med rec pending DVT prophylaxis: Lovenox Full code Admit as inpatient and will require two night minimum hospital stay for IV antibiotics (as above), which is not possible in a lesser acute setting. Quality Stroke Does the patient have a stroke diagnosis?: No VTE Prior VTE?: No VTE Risk Level:: Medical - moderate - high VTE Device Contraindication: Treatment Not Indicated VTE Drug Contraindication: N/A - Med Ordered
--- NOTE | 2024-07-18 22:36 | PHA.MEDREC ---
Addendum entered by Anabel Minor RPh 07/18/24 22:51: reviewed by [facility]. Original Note: Pharmacy Consult ? Medication Reconciliation Pharmacy has completed the medication reconciliation. Confirmed medications with patient and family at bedside. The patient was able to confirm they are currently taking Alendronate 70mg tabs once weekly and her family at bedside confirmed it is on and the patient confirmed she last took it 07/07/24. She also got a Cephalexin 500mg tabs 1Q6H for 7 days. The family at bedside states they picked it up on 07/12 and has been taking it, they have 7 pills left at home and should of been done with it tomorrow.
[2024-07-18] MEDS: Enoxaparin Sodium 40 MG/0.4 ML SYRINGE SUBCUT (23:14)
[2024-07-18] MEDS: Potassium Chloride Packet 20 MEQ PACKET 40 MEQ PO (23:14)
[2024-07-18 23:33] VITALS: BP 115/62; PULSE 93; RESP 17; TEMP 36.7; O2SAT 97
[2024-07-19 00:46] VITALS: BP 115/75; PULSE 97; RESP 17; TEMP 37; O2SAT 97
[2024-07-19 01:01] VITALS: BMI 31.0
[2024-07-19 06:06] LABS: MANUAL DIFF FLAG NO
[2024-07-19 06:26] LABS: Basophils Percent Auto 0.3 % (0-2); Eosinophils Absolute Auto 0.3 X10*3/uL (0.0-0.4); Eosinophils Percent Auto 3.3 % (0-4); Hematocrit 31.9 % (37.0-47.0); Hemoglobin 10.5 g/dl (12.0-16.0); Imm Gran Abs Auto 0.07 X10*3/uL (0.00-0.03); Imm Gran Pct Auto 0.7 % (0.0-0.4); Lymphocytes Absolute Auto 1.7 X10*3/uL (1.2-4.9); Lymphocytes Percent Auto 17.8 % (20-40); Mean Corpuscular HGB Conc 32.9 g/dl (31.0-35.0); Mean Corpuscular Hemoglobin 28.4 pg (27.0-33.0); Mean Corpuscular Volume 86.2 fL (80.0-98.0); Mean Platelet Volume 10.9 fL (9.4-12.3); Monocytes Absolute Auto 1.1 X10*3/uL (0.1-1.2); Monocytes Percent Auto 11.5 % (2-11); Neutrophils Absolute Auto 6.3 x10*3/uL (2.0-8.3); Neutrophils Percent Auto 66.4 % (45-73); Platelet Count 290 X10*3/uL (160-400); Red Cell Distribution Width 13.5 % (11.0-16.0); White Blood Count 9.4 X10*3/uL (4.8-10.8)
[2024-07-19 06:30] LABS: Anion Gap 17 (12-20); Blood Urea Nitrogen 15 mg/dL (9-16); Calcium 9.2 mg/dL (8.4-10.2); Carbon Dioxide 21 mmol/L (22-29); Chloride 108 mmol/L (96-108); Creatinine Clr Calc Pharmacy 85.3; Estimated Glomerular Filt Rate > 60; Glucose Random 103 mg/dL (60-115); Potassium 3.3 mmol/L (3.3-5.1); Sodium 143 mmol/L (135-145)
[2024-07-19 07:50] VITALS: BP 117/71; PULSE 91; RESP 16; TEMP 36.5; O2SAT 91
--- NOTE | 2024-07-19 08:06 | PHA.PROG ---
Admission Date/Time: July 18, 2024 22:34 Indication: skin Weight in k.4 kg Serum Creatinine - Last 168 Hours 07/18/24 07/19/24 20:35 05:50 Creatinine 0.86 0.76 Estimated CrCl and GFR - Last 168 Hours 07/18/24 07/19/24 20:35 05:50 Estim Creat Clear Calc 75.4 85.3 Estimated GFR > 60 > 60 Vancomycin Loading Dose: 1000 x1 + another 1000 x 1 Current Vancomycin Dosing Regimen: 1000 Q12h Vancomycin Monitoring using AUC goal of 400 - 600 range with trough as surrogate marker: 485 Date and Time for next Vancomycin Level to be drawn: 07/20 @1999 Pharmacist Comments on Vancomycin Plan: Vancomycin dosing will take advantage of [employer] as a clinical decision support tool that uses Bayesian modeling to calculate individual patient's pharmacokinetic parameters and forecast the patient's drug concentration time course with the target goal AUC 24 range of 400 - 600 mg/L/hr.
[2024-07-19] MEDS: vancomycin HCL 1,000 MG in 0.9 % Sodium Chloride 250 ML 270 MG IV ×2 (09:32→20:31)
[2024-07-19] MEDS: 0.9 % Sodium Chloride Flush 3 ML SYRINGE IVFLUSH ×3 (09:32→20:31)
--- NOTE | 2024-07-19 10:22 | P.PNIM_ITS ---
Subjective Subjective Date of Service: 07/19/24 Interval History: redness in the leg, with some pain Physical Exam 2 Vital Signs: Vital Signs: Last Vital Signs Temp 97.7 F 07/19/24 07:50 Pulse 91 07/19/24 07:50 Resp 16 07/19/24 07:50 BP 117/71 07/19/24 07:50 Pulse Ox 91 L 07/19/24 07:50 O2 Del Method Room Air 07/19/24 07:50 BMI result Body Mass Index 31.0 Const: Other: General: AO X 3, no acute distress Resp: CTA bilateral CVS: S1,S2,RRR GI: +BS, NT, no distention Skin: 07/19 Neuro: motor grossly intact Psych: appropriate affect Objective Data Active Medications Acetaminophen (Acetaminophen 325 Mg Tablet) 650 mg PO Q6H PRN PRN Reason: Pain, Mild (Pain Scale 1-3), fever or headache Calcium Carbonate (Calcium Carbonate 750 Mg Tab.Chew) 750 mg PO Q4H PRN PRN Reason: Heartburn Enoxaparin Sodium (Enoxaparin Sodium 40 Mg/0.4 Ml Syringe) 40 mg SUBCUT Q24H [facility] Last Admin: 07/18/24 23:14 Dose: 40 mg Documented By: DO Vancomycin HCl 1,000 mg/ (Sodium Chloride) 270 mls @ 270 mls/hr IV Q12H [facility] Last Admin: 07/19/24 09:32 Dose: 270 mls/hr Documented By: SHERRY Magnesium Hydroxide (Milk Of Magnesia 30 Ml Oral.Susp) 30 ml PO DAILY PRN PRN Reason: Constipation Melatonin (Melatonin 3 Mg Tablet) 6 mg PO BEDTIME PRN PRN Reason: Insomnia Ondansetron HCl (Ondansetron Hcl 4 Mg/2 Ml Vial) 4 mg IVPUSH Q8H PRN PRN Reason: Nausea and Vomiting Pharmacy Consult (Consult Rx Vancomycin Dosing) 1 each MISCELLANE DAILY PRN PRN Reason: Consult order Sodium Chloride (0.9 % Sodium Chloride Flush 3 Ml Syringe) 3 ml IVFLUSH QSHIFT [facility] Last Admin: 07/19/24 09:32 Dose: 3 ml Documented By: SHERRY Labs 07/19/24 05:50 07/19/24 05:50 Labs: Laboratory Results - last 24 hr 0807/18/24 07/19/24 20:35 22:04 05:50 MCV 85.8 86.2 MCH 28.3 28.4 MCHC 33.0 32.9 RDW 13.4 13.5 Plt Count 310 D 290 MPV 10.5 10.9 Immature Gran % (Auto) 0.8 H 0.7 H Neut % (Auto) 66.0 66.4 Lymph % (Auto) 18.8 L 17.8 L [place] % (Auto) 10.3 11.5 H Eos % (Auto) 3.9 3.3 Baso % (Auto) 0.2 0.3 Lymph # (Auto) 1.9 1.7 [place] # (Auto) 1.1 1.1 Eos # (Auto) 0.4 0.3 Baso # (Auto) 0.0 0.0 Abs Immat Gran (auto) 0.08 H 0.07 H Absolute Neuts (auto) 6.8 6.3 Absolute Nucleated RBC 0.000 0.000 Nucleated RBC % (auto) 0.0 0.0 Anion Gap 15 17 Estim Creat Clear Calc 75.4 85.3 Estimated GFR > 60 > 60 Random Glucose 113 103 Lactic Acid 0.8 Calcium 9.7 D 9.2 Total Bilirubin 0.4 AST 18 ALT 19 Alkaline Phosphatase 68 Total Protein 7.6 Albumin 4.0 Assessment and Plan (1) Cellulitis of right leg: Status: Acute Plan 53-year-old female with pertinent history of cerebral palsy, asthma not on home oxygen, FARTUN on CPAP at bedtime, gastroesophageal reflux disease who presents to the emergency department for concerns of right leg infection. Right lower extremity cellulitis, no sepsis, failed oral therapy -iv vanco Hypokalemia Repletedn and resolved FARTUN - CPAP at bedtime mild persistent Asthma, no exacerbation -continue routine inhalers chronic leg edema, no dvt -continue lasix GERD -PPI DVT prophylaxis: Lovenox Full code inpt for IV Abx for cellulitis covering more than 50% Quality Stroke Does the patient have a stroke diagnosis?: No VTE Prior VTE?: No VTE Risk Level:: Medical - moderate - high VTE Device Contraindication: Treatment Not Indicated VTE Drug Contraindication: N/A - Med Ordered
--- NOTE | 2024-07-19 10:53 | MHC.CM.PN ---
IMM DELIVERED. PT LIVES WITH PARENTS/SISTER WHO IS HER HOSPITAL CNA/CAREGIVER (57 HRS PER WEEK VIA [employer]) PT HAS CP AND IS W/C BOUND AT BASELINE. PT USES C PAP AT NIGHT AND SUPPLIES ARE THROUGH [facility]. WILL CONSIDER COMPLETING HCP WHILE HERE. PCP DR. KAN AT [facility] DP: HOME WITH RESUMPTION OF HOSPITAL CNA SERVICES IS THE GOAL. FAMILY VS BLS FOR TRANSPORT. CM WILL CONTINUE TO FOLLOW FOR ANY CHANGES TO DC PLAN/NEEDS.
[2024-07-19 11:26] VITALS: BP 118/65; PULSE 94
[2024-07-19] MEDS: Ascorbic Acid 500 MG TABLET PO (11:26)
[2024-07-19] MEDS: Omeprazole 20 MG CAPSULE.DR PO ×2 (11:26→15:49)
[2024-07-19] MEDS: Docusate Sodium 100 MG CAPSULE PO ×2 (11:26→20:31)
[2024-07-19] MEDS: Furosemide 40 MG TABLET PO (11:26)
[2024-07-19] MEDS: Loratadine 10 MG TABLET PO (11:26)
[2024-07-19] MEDS: Cholecalciferol (Vitamin D3) 25 MCG TABLET PO (11:26)
[2024-07-19] MEDS: Calcium Oyster Shell Elemental 500 MG TABLET PO ×2 (11:26→20:31)
--- NOTE | 2024-07-19 11:28 | MHC.CLN ---
NUTRITION DIET CHANGED TO 2 GRAM SODIUM. PATIENT TAKES 40 MG DIURETIC DAILY.
[2024-07-19 15:16] VITALS: BP 107/61; PULSE 97; RESP 18; TEMP 36.7; O2SAT 91
[2024-07-19] MEDS: Acetaminophen 325 MG TABLET 650 MG PO (15:52)
[2024-07-19 19:39] VITALS: BP 105/59; PULSE 96; RESP 18; TEMP 36.6; O2SAT 93
[2024-07-19] MEDS: Amitriptyline HCl 10 MG TABLET PO (20:31)
[2024-07-19] MEDS: Montelukast Sodium 10 MG TABLET PO (20:31)
[2024-07-19] MEDS: Enoxaparin Sodium 40 MG/0.4 ML SYRINGE SUBCUT (22:36)
[2024-07-20] MEDS: diphenhydrAMINE HCL 50 MG/ML VIAL 25 MG IVPUSH ×3 (01:07→20:16)
[2024-07-20 03:26] VITALS: BP 103/56; PULSE 81; RESP 17; TEMP 36.5; O2SAT 95
--- NOTE | 2024-07-20 03:59 | PC.NURSE ---
Pt AOx3, able to make needs known. RLE remains red, warm to touch, edematous. Pt c/o RLE itching, hospitalist contacted, PRN benadryl administered. Call olsen within reach, bed alarm on.
[2024-07-20] MEDS: Omeprazole 20 MG CAPSULE.DR PO ×2 (06:19→16:40)
[2024-07-20 06:37] LABS: Anion Gap 13 (12-20); Blood Urea Nitrogen 13 mg/dL (9-16); Calcium 9.4 mg/dL (8.4-10.2); Carbon Dioxide 24 mmol/L (22-29); Chloride 109 mmol/L (96-108); Creatinine Clr Calc Pharmacy 86.5; Estimated Glomerular Filt Rate > 60; Glucose Fasting 111 mg/dL (60-99); Potassium 3.2 mmol/L (3.3-5.1); Sodium 143 mmol/L (135-145)
[2024-07-20 08:00] VITALS: BP 128/65; PULSE 69; RESP 16; TEMP 36.6; O2SAT 98
[2024-07-20] MEDS: Fluticasone/Vilanterol 200/25 BLST.W.DEV 1 PUFF INHALE (08:14)
[2024-07-20 08:15] VITALS: PULSE 88; RESP 12; O2SAT 94
[2024-07-20] MEDS: Potassium Chloride Packet 20 MEQ PACKET 40 MEQ PO (08:26)
[2024-07-20] MEDS: Cholecalciferol (Vitamin D3) 25 MCG TABLET PO (08:26)
[2024-07-20] MEDS: Furosemide 40 MG TABLET PO (08:26)
[2024-07-20] MEDS: Loratadine 10 MG TABLET PO (08:26)
[2024-07-20] MEDS: Docusate Sodium 100 MG CAPSULE PO ×2 (08:26→20:11)
[2024-07-20] MEDS: NaPROXEN 250 MG TABLET PO (08:26)
[2024-07-20] MEDS: Ascorbic Acid 500 MG TABLET PO (08:27)
[2024-07-20] MEDS: Calcium Oyster Shell Elemental 500 MG TABLET PO ×2 (08:27→20:11)
[2024-07-20] MEDS: Ferrous Sulfate 324 MG TABLET.DR PO (08:27)
[2024-07-20] MEDS: vancomycin HCL 1,000 MG in 0.9 % Sodium Chloride 250 ML 270 MG IV (08:28)
[2024-07-20] MEDS: 0.9 % Sodium Chloride Flush 3 ML SYRINGE IVFLUSH ×3 (08:31→20:11)
--- NOTE | 2024-07-20 09:52 | HO.PM.IMPN ---
Subjective Subjective Date of Service: 07/20/24 Interval History: has some pain and redness is better Physical Exam Vital Signs: Vital Signs: Last Vital Signs Temp 98 F 07/20/24 08:00 Pulse 88 07/20/24 08:15 Resp 12 07/20/24 08:15 BP 128/65 07/20/24 08:00 Pulse Ox 98 07/20/24 08:00 O2 Del Method Room Air 07/20/24 08:00 BMI result Body Mass Index 31.0 Const: Other: General: AO X 3, no acute distress Resp: CTA bilateral CVS: S1,S2,RRR GI: +BS, NT, no distention Skin: 07/19 07/20 Neuro: motor grossly intact Psych: appropriate affect Objective Data Active Medications Acetaminophen (Acetaminophen 325 Mg Tablet) 650 mg PO Q6H PRN PRN Reason: Pain, Mild (Pain Scale 1-3), fever or headache Last Admin: 07/19/24 15:52 Dose: 650 mg Documented By: SHERRY Albuterol Sulfate (Albuterol Sulfate 90 Mcg 8 Gm Inhaler) 2 puff INHALE Q4H PRN PRN Reason: Wheezing/SOB Amitriptyline HCl (Amitriptyline Hcl 10 Mg Tablet) 10 mg PO BEDTIME [facility] Last Admin: 07/19/24 20:31 Dose: 10 mg Documented By: SANAZ Ascorbic Acid (Ascorbic Acid 500 Mg Tablet) 500 mg PO DAILY [facility] Last Admin: 07/20/24 08:27 Dose: 500 mg Documented By: SHERRY Calcium Carbonate (Calcium Carbonate 750 Mg Tab.Chew) 750 mg PO Q4H PRN PRN Reason: Heartburn Calcium Carbonate (Calcium Oyster Shell Elemental 500 Mg Tablet) 500 mg PO BID [facility] Last Admin: 07/20/24 08:27 Dose: 500 mg Documented By: SHERRY Clotrimazole (Clotrimazole 1 % Cream 15 Gm Tube) 1 appl TOPICAL BEDTIME [facility] Last Admin: 07/19/24 22:26 Dose: Not Given Documented By: SANAZ Non-Admin Reason: Med Not Available Diphenhydramine HCl (Diphenhydramine Hcl 50 Mg/Ml Vial) 25 mg IVPUSH Q6H PRN PRN Reason: Itching Last Admin: 07/20/24 08:31 Dose: 25 mg Documented By: SHERRY Docusate Sodium (Docusate Sodium 100 Mg Capsule) 100 mg PO BID [facility] Last Admin: 07/20/24 08:26 Dose: 100 mg Documented By: SHERRY Enoxaparin Sodium (Enoxaparin Sodium 40 Mg/0.4 Ml Syringe) 40 mg SUBCUT Q24H [facility] Last Admin: 07/19/24 22:36 Dose: 40 mg Documented By: SANAZ Ferrous Sulfate (Ferrous Sulfate 324 Mg Tablet.) 324 mg PO DAILY [facility] Last Admin: 07/20/24 08:27 Dose: 324 mg Documented By: SHERRY Fluticasone/Vilanterol (Fluticasone/Vilanterol 200/25 Blst.W.Dev) 1 puff INHALE RDAILY [facility] Last Admin: 07/20/24 08:14 Dose: 1 puff Documented By: MARIELENA Furosemide (Furosemide 40 Mg Tablet) 40 mg PO DAILY [facility]; Protocol Last Admin: 07/20/24 08:26 Dose: 40 mg Documented By: SHERRY Vancomycin HCl 1,000 mg/ (Sodium Chloride) 270 mls @ 270 mls/hr IV Q12H [facility] Last Infusion: 07/20/24 09:29 Dose: Infused Documented By: SHERRY Loratadine (Loratadine 10 Mg Tablet) 10 mg PO DAILY [facility] Last Admin: 07/20/24 08:26 Dose: 10 mg Documented By: SHERRY Magnesium Hydroxide (Milk Of Magnesia 30 Ml Oral.Susp) 30 ml PO DAILY PRN PRN Reason: Constipation Melatonin (Melatonin 3 Mg Tablet) 6 mg PO BEDTIME PRN PRN Reason: Insomnia Montelukast Sodium (Montelukast Sodium 10 Mg Tablet) 10 mg PO BEDTIME [facility] Last Admin: 07/19/24 20:31 Dose: 10 mg Documented By: SANAZ Naproxen (Naproxen 250 Mg Tablet) 250 mg PO DAILY [facility] Last Admin: 07/20/24 08:26 Dose: 250 mg Documented By: SHERRY Omeprazole (Omeprazole 20 Mg Capsule.) 20 mg PO BID@0630,1630 [facility] Last Admin: 07/20/24 06:19 Dose: 20 mg Documented By: SANAZ Ondansetron HCl (Ondansetron Hcl 4 Mg/2 Ml Vial) 4 mg IVPUSH Q8H PRN PRN Reason: Nausea and Vomiting Pharmacy Consult (Consult Rx Vancomycin Dosing) 1 each MISCELLANE DAILY PRN PRN Reason: Consult order Sodium Chloride (0.9 % Sodium Chloride Flush 3 Ml Syringe) 3 ml IVFLUSH QSHIFT [facility] Last Admin: 07/20/24 08:31 Dose: 3 ml Documented By: SHERRY Triamcinolone Acetonide (Triamcinolone Acet 0.1 % Oint 15 Gm Tube) 1 appl TOPICAL BID PRN PRN Reason: Redness Vitamin D (Cholecalciferol (Vitamin D3) 25 Mcg Tablet) 25 mcg PO DAILY [facility] Last Admin: 07/20/24 08:26 Dose: 25 mcg Documented By: SHERRY Labs 07/19/24 05:50 07/20/24 05:52 Labs: Laboratory Results - last 24 hr 07/20/24 05:52 Hold Purple Top SEE NOTE Anion Gap 13 Estim Creat Clear Calc 86.5 Estimated GFR > 60 Fasting Glucose 111 H Calcium 9.4 Microbiology Microbiology Results: Microbiology 07/18/24 20:37 Blood Culture - Preliminary Blood - Venous No growth after 24 hours. 07/18/24 20:40 Blood Culture - Preliminary Blood - Venous No growth after 24 hours. Assessment and Plan (1) Cellulitis of right leg: Status: Acute Plan 53-year-old female with pertinent history of cerebral palsy, asthma not on home oxygen, FARTUN on CPAP at bedtime, gastroesophageal reflux disease who presents to the emergency department for concerns of right leg infection. Right lower extremity cellulitis, no sepsis, failed oral therapy, improving see pic above -iv vanco, follow level and renal function id consult if not improving Hypokalemia Replete FARTUN - CPAP at bedtime mild persistent Asthma, no exacerbation -continue routine inhalers chronic leg edema, no dvt -continue lasix GERD -PPI DVT prophylaxis: Lovenox Full code inpt for IV Abx for cellulitis covering more than 50% Quality Stroke Does the patient have a stroke diagnosis?: No VTE Prior VTE?: No VTE Risk Level:: Medical - moderate - high VTE Device Contraindication: Treatment Not Indicated VTE Drug Contraindication: N/A - Med Ordered
[2024-07-20 16:00] VITALS: BP 126/66; PULSE 96; RESP 18; TEMP 32.2; O2SAT 93
[2024-07-20 18:22] VITALS: TEMP 36.8
[2024-07-20 19:23] VITALS: BP 110/59; PULSE 99; RESP 18; TEMP 37; O2SAT 94
[2024-07-20] MEDS: Montelukast Sodium 10 MG TABLET PO (20:11)
[2024-07-20] MEDS: Amitriptyline HCl 10 MG TABLET PO (20:11)
[2024-07-20] MEDS: Enoxaparin Sodium 40 MG/0.4 ML SYRINGE SUBCUT (20:12)
[2024-07-20 20:47] LABS: Vancomycin Random 24.7 mcg/mL (15-20)
--- NOTE | 2024-07-20 21:22 | HE.PHANOTE ---
RE: VANCO DOSING Trough came back as 24.7. Hold dose until 10am 07/21/24 and reduce dose to 1250 mg q24h. Next random is scheduled for 07/22/24 @0800.
[2024-07-21 01:57] VITALS: RESP 18
[2024-07-21 04:00] VITALS: BP 118/57; PULSE 83; RESP 18; TEMP 36; O2SAT 94
[2024-07-21] MEDS: Omeprazole 20 MG CAPSULE.DR PO ×2 (05:42→17:09)
[2024-07-21 07:41] VITALS: BP 115/60; PULSE 86; RESP 14; TEMP 36.2; O2SAT 94
[2024-07-21] MEDS: Fluticasone/Vilanterol 200/25 BLST.W.DEV 1 PUFF INHALE (07:53)
[2024-07-21 07:54] VITALS: PULSE 92; RESP 18; O2SAT 93
[2024-07-21 08:08] LABS: Anion Gap 14 (12-20); Blood Urea Nitrogen 13 mg/dL (9-16); Calcium 9.6 mg/dL (8.4-10.2); Carbon Dioxide 27 mmol/L (22-29); Chloride 106 mmol/L (96-108); Creatinine Clr Calc Pharmacy 85.3; Estimated Glomerular Filt Rate > 60; Glucose Fasting 99 mg/dL (60-99); Potassium 3.5 mmol/L (3.3-5.1); Sodium 143 mmol/L (135-145)
[2024-07-21] MEDS: Loratadine 10 MG TABLET PO (08:08)
[2024-07-21] MEDS: Calcium Oyster Shell Elemental 500 MG TABLET PO ×2 (08:08→20:13)
[2024-07-21] MEDS: Ferrous Sulfate 324 MG TABLET.DR PO (08:08)
[2024-07-21] MEDS: NaPROXEN 250 MG TABLET PO (08:08)
[2024-07-21] MEDS: Furosemide 40 MG TABLET PO (08:08)
[2024-07-21] MEDS: Cholecalciferol (Vitamin D3) 25 MCG TABLET PO (08:08)
[2024-07-21] MEDS: Docusate Sodium 100 MG CAPSULE PO ×2 (08:08→20:13)
[2024-07-21] MEDS: Ascorbic Acid 500 MG TABLET PO (08:09)
[2024-07-21] MEDS: 0.9 % Sodium Chloride Flush 3 ML SYRINGE IVFLUSH ×2 (08:09→17:09)
--- NOTE | 2024-07-21 09:08 | HE.PHANOTE ---
Re: Rosie Patient's renal function stable. Continue current dose of 1250 q24h, trough to be drawn 07/22 @ 0800.
--- NOTE | 2024-07-21 09:44 | P.PNIM_ITS ---
Subjective Subjective Date of Service: 07/21/24 Interval History: still has redness of the leg with tenderness,, no fever last vanco level high and so not given [facility] Physical Exam 2 Vital Signs: Vital Signs: Last Vital Signs Temp 97.1 F 07/21/24 07:41 Pulse 92 07/21/24 07:54 Resp 18 07/21/24 07:54 BP 115/60 07/21/24 07:41 Pulse Ox 94 07/21/24 07:41 O2 Del Method Room Air 07/21/24 07:41 BMI result Body Mass Index 31.0 Const: Other: General: AO X 3, no acute distress Resp: CTA bilateral CVS: S1,S2,RRR GI: +BS, NT, no distention Skin: 07/19 07/20 07/21 Neuro: motor grossly intact Psych: appropriate affect Objective Data Active Medications Acetaminophen (Acetaminophen 325 Mg Tablet) 650 mg PO Q6H PRN PRN Reason: Pain, Mild (Pain Scale 1-3), fever or headache Last Admin: 07/19/24 15:52 Dose: 650 mg Documented By: SHRERY Albuterol Sulfate (Albuterol Sulfate 90 Mcg 8 Gm Inhaler) 2 puff INHALE Q4H PRN PRN Reason: Wheezing/SOB Amitriptyline HCl (Amitriptyline Hcl 10 Mg Tablet) 10 mg PO BEDTIME [facility] Last Admin: 07/20/24 20:11 Dose: 10 mg Documented By: SANAZ Ascorbic Acid (Ascorbic Acid 500 Mg Tablet) 500 mg PO DAILY [facility] Last Admin: 07/21/24 08:09 Dose: 500 mg Documented By: JUANCARLOS Calcium Carbonate (Calcium Carbonate 750 Mg Tab.Chew) 750 mg PO Q4H PRN PRN Reason: Heartburn Calcium Carbonate (Calcium Oyster Shell Elemental 500 Mg Tablet) 500 mg PO BID [facility] Last Admin: 07/21/24 08:08 Dose: 500 mg Documented By: JUANCARLOS Clotrimazole (Clotrimazole 1 % Cream 15 Gm Tube) 1 appl TOPICAL BEDTIME [facility] Last Admin: 07/20/24 21:04 Dose: Not Given Documented By: SANAZ Non-Admin Reason: Med Not Available Diphenhydramine HCl (Diphenhydramine Hcl 50 Mg/Ml Vial) 25 mg IVPUSH Q6H PRN PRN Reason: Itching Last Admin: 07/20/24 20:16 Dose: 25 mg Documented By: SANAZ Docusate Sodium (Docusate Sodium 100 Mg Capsule) 100 mg PO BID [facility] Last Admin: 07/21/24 08:08 Dose: 100 mg Documented By: JUANCARLOS Enoxaparin Sodium (Enoxaparin Sodium 40 Mg/0.4 Ml Syringe) 40 mg SUBCUT Q24H [facility] Last Admin: 07/20/24 20:12 Dose: 40 mg Documented By: SANAZ Ferrous Sulfate (Ferrous Sulfate 324 Mg Tablet.) 324 mg PO DAILY [facility] Last Admin: 07/21/24 08:08 Dose: 324 mg Documented By: JUANCARLOS Fluticasone/Vilanterol (Fluticasone/Vilanterol 200/25 Blst.W.Dev) 1 puff INHALE RDAILY [facility] Last Admin: 07/21/24 07:53 Dose: 1 puff Documented By: MARYAM Furosemide (Furosemide 40 Mg Tablet) 40 mg PO DAILY [facility]; Protocol Last Admin: 07/21/24 08:08 Dose: 40 mg Documented By: JUANCARLOS Vancomycin HCl 1,250 mg/ (Sodium Chloride) 250 mls @ 166.667 mls/hr IV Q24H [facility] Loratadine (Loratadine 10 Mg Tablet) 10 mg PO DAILY [facility] Last Admin: 07/21/24 08:08 Dose: 10 mg Documented By: JUANCARLOS Magnesium Hydroxide (Milk Of Magnesia 30 Ml Oral.Susp) 30 ml PO DAILY PRN PRN Reason: Constipation Melatonin (Melatonin 3 Mg Tablet) 6 mg PO BEDTIME PRN PRN Reason: Insomnia Montelukast Sodium (Montelukast Sodium 10 Mg Tablet) 10 mg PO BEDTIME [facility] Last Admin: 07/20/24 20:11 Dose: 10 mg Documented By: SANAZ Naproxen (Naproxen 250 Mg Tablet) 250 mg PO DAILY [facility] Last Admin: 07/21/24 08:08 Dose: 250 mg Documented By: JUANCARLOS Omeprazole (Omeprazole 20 Mg Capsule.) 20 mg PO BID@0630,1630 [facility] Last Admin: 07/21/24 05:42 Dose: 20 mg Documented By: SANAZ Ondansetron HCl (Ondansetron Hcl 4 Mg/2 Ml Vial) 4 mg IVPUSH Q8H PRN PRN Reason: Nausea and Vomiting Pharmacy Consult (Consult Rx Vancomycin Dosing) 1 each MISCELLANE DAILY PRN PRN Reason: Consult order Sodium Chloride (0.9 % Sodium Chloride Flush 3 Ml Syringe) 3 ml IVFLUSH QSHIFT [facility] Last Admin: 07/21/24 08:09 Dose: 3 ml Documented By: JUANCARLOS Triamcinolone Acetonide (Triamcinolone Acet 0.1 % Oint 15 Gm Tube) 1 appl TOPICAL BID PRN PRN Reason: Redness Vitamin D (Cholecalciferol (Vitamin D3) 25 Mcg Tablet) 25 mcg PO DAILY [facility] Last Admin: 07/21/24 08:08 Dose: 25 mcg Documented By: JUANCARLOS Labs 07/19/24 05:50 07/21/24 06:39 Labs: Laboratory Results - last 24 hr 07/20/24 07/21/24 19:58 06:39 Hold Purple Top SEE NOTE Anion Gap 14 Estim Creat Clear Calc 85.3 Estimated GFR > 60 Fasting Glucose 99 Calcium 9.6 Random Vancomycin 24.7 H Microbiology Microbiology Results: Microbiology 07/18/24 20:37 Blood Culture - Preliminary Blood - Venous No growth after 48 hours. 07/18/24 20:40 Blood Culture - Preliminary Blood - Venous No growth after 48 hours. Assessment and Plan (1) Cellulitis of right leg: Status: Acute Plan 53-year-old female with pertinent history of cerebral palsy, asthma not on home oxygen, FARTUN on CPAP at bedtime, gastroesophageal reflux disease who presents to the emergency department for concerns of right leg infection. Right lower extremity cellulitis, no sepsis, failed oral therapy, improving see pic above -iv vanco, follow level and renal function -id consult -hold vanco given high level, check random - add iv doxy Hypokalemia Repleted and resolved FARTUN - CPAP at bedtime mild persistent Asthma, no exacerbation -continue routine inhalers chronic leg edema, no dvt -continue lasix GERD -PPI DVT prophylaxis: Lovenox Full code inpt for IV Abx for cellulitis covering more than 50% Quality Stroke Does the patient have a stroke diagnosis?: No VTE Prior VTE?: No VTE Risk Level:: Medical - moderate - high VTE Device Contraindication: Treatment Not Indicated VTE Drug Contraindication: N/A - Med Ordered
[2024-07-21] MEDS: Doxycycline Hyclate 100 MG in 0.9 % Sodium Chloride 250 ML 166.67 MG IV ×2 (10:28→21:14)
[2024-07-21 11:11] LABS: Vancomycin Random 12.5 mcg/mL (15-20)
--- NOTE | 2024-07-21 11:19 | HE.PHANOTE ---
Addendum entered by Ezra Jimenez [facility] 07/21/24 11:24: Next trough 07/22 @ 0900. Original Note: Re: Vanco Stable renal function, trough returned at 12.5. Continue current dose of 1250mg q12h, with predicted AUC 432, and predicted trough 11.5.
[2024-07-21] MEDS: vancomycin HCL 1,250 MG in 0.9 % Sodium Chloride 250 ML 166.67 MG IV (12:09)
--- NOTE | 2024-07-21 14:55 | MHC.CM.PN ---
PT'S SISTER HAS REQUESTED A SHORT REHAB STAY BEFORE RETURNING HOME TO ASSIST WITH HER TRANSFERS. P.T. IS RECOMMENDING STR AND FAMILY/PATIENT FIRST CHOICE IS [facility]. REFERRAL SENT AND [facility] HAS OFFERED A BED PENDING AUTH. WHEN MEDICALLY CLEARED. SISTER KIERAN WILL BRING HOME C PAP TO CENTER ON [place]. CM WILL CONTINUE TO FOLLOW FOR ANY CHANGE TO PLAN.
[2024-07-21 15:44] VITALS: BP 102/52; PULSE 86; RESP 18; TEMP 36.2; O2SAT 95
[2024-07-21 19:21] VITALS: BP 122/83; PULSE 95; RESP 20; TEMP 36.8; O2SAT 94
[2024-07-21] MEDS: diphenhydrAMINE HCL 50 MG/ML VIAL 25 MG IVPUSH (20:13)
[2024-07-21] MEDS: Enoxaparin Sodium 40 MG/0.4 ML SYRINGE SUBCUT (20:13)
[2024-07-21] MEDS: Montelukast Sodium 10 MG TABLET PO (20:14)
[2024-07-21] MEDS: Amitriptyline HCl 10 MG TABLET PO (20:14)
[2024-07-22] VITALS (8 sets, daily range): BP systolic 95–131; BP diastolic 50–59; PULSE 83–92; RESP 15–20; TEMP 36.1–36.9; O2SAT 92–95
[2024-07-22] MEDS: 0.9 % Sodium Chloride Flush 3 ML SYRINGE IVFLUSH ×4 (03:29→22:46)
[2024-07-22] MEDS: Omeprazole 20 MG CAPSULE.DR PO ×2 (04:47→16:47)
[2024-07-22 06:42] LABS: Anion Gap 13 (12-20); Blood Urea Nitrogen 15 mg/dL (9-16); Calcium 9.8 mg/dL (8.4-10.2); Carbon Dioxide 26 mmol/L (22-29); Chloride 106 mmol/L (96-108); Creatinine Clr Calc Pharmacy 92.7; Estimated Glomerular Filt Rate > 60; Glucose Fasting 104 mg/dL (60-99); Potassium 3.6 mmol/L (3.3-5.1); Sodium 141 mmol/L (135-145)
[2024-07-22] MEDS: Fluticasone/Vilanterol 200/25 BLST.W.DEV 1 PUFF INHALE (08:09)
[2024-07-22] MEDS: Docusate Sodium 100 MG CAPSULE PO ×2 (09:36→20:27)
[2024-07-22] MEDS: Cholecalciferol (Vitamin D3) 25 MCG TABLET PO (09:36)
[2024-07-22] MEDS: Calcium Oyster Shell Elemental 500 MG TABLET PO ×2 (09:36→20:27)
[2024-07-22] MEDS: Ferrous Sulfate 324 MG TABLET.DR PO (09:36)
[2024-07-22] MEDS: Ascorbic Acid 500 MG TABLET PO (09:36)
[2024-07-22] MEDS: Loratadine 10 MG TABLET PO (09:36)
[2024-07-22] MEDS: NaPROXEN 250 MG TABLET PO (09:36)
[2024-07-22] MEDS: Furosemide 40 MG TABLET PO (09:37)
[2024-07-22] MEDS: Doxycycline Hyclate 100 MG in 0.9 % Sodium Chloride 250 ML 166.67 MG IV ×2 (09:41→21:14)
[2024-07-22 09:50] LABS: Vancomycin Random 13.1 mcg/mL (15-20)
--- NOTE | 2024-07-22 09:57 | HE.PHANOTE ---
RE VANCO DOSING SLIGHT INCREASE IN RENAL FUNCTION TODAY AND TROUGH BACK AT 13.1. ESTIMATED AUC 415 WITH CURRENT DOSING. WILL INCREASE TO 1500 Q24 TO ACHIEVE AUC 494 AND TROUGH 12.9. EXPECT HIGHER TROUGH THAN INSIGHT IS ESTIMATING PATIENT IS CURRENTLY SLIGHTLY HIGHER THAN ESTIMATES SHOW (13.1 VS 11.6).
--- NOTE | 2024-07-22 09:58 | HO.PM.IMPN ---
Subjective Subjective Date of Service: 07/22/24 Interval History: still has redness of the leg with tenderness,, no fever some pain Physical Exam Vital Signs: Vital Signs: Last Vital Signs Temp 98.0 F 07/22/24 07:41 Pulse 88 07/22/24 08:11 Resp 15 07/22/24 08:11 BP 107/58 L 07/22/24 09:37 Pulse Ox 93 07/22/24 07:41 O2 Del Method Room Air 07/22/24 07:41 BMI result Body Mass Index 31.0 Const: Other: General: AO X 3, no acute distress Resp: CTA bilateral CVS: S1,S2,RRR GI: +BS, NT, no distention Skin: 07/19 07/20 07/21 07/22 Neuro: motor grossly intact Psych: appropriate affect Objective Data Active Medications Acetaminophen (Acetaminophen 325 Mg Tablet) 650 mg PO Q6H PRN PRN Reason: Pain, Mild (Pain Scale 1-3), fever or headache Last Admin: 07/19/24 15:52 Dose: 650 mg Documented By: SHERRY Albuterol Sulfate (Albuterol Sulfate 90 Mcg 8 Gm Inhaler) 2 puff INHALE Q4H PRN PRN Reason: Wheezing/SOB Amitriptyline HCl (Amitriptyline Hcl 10 Mg Tablet) 10 mg PO BEDTIME [facility] Last Admin: 07/21/24 20:14 Dose: 10 mg Documented By: SANAZ Ascorbic Acid (Ascorbic Acid 500 Mg Tablet) 500 mg PO DAILY [facility] Last Admin: 07/22/24 09:36 Dose: 500 mg Documented By: NIKITA Calcium Carbonate (Calcium Carbonate 750 Mg Tab.Chew) 750 mg PO Q4H PRN PRN Reason: Heartburn Calcium Carbonate (Calcium Oyster Shell Elemental 500 Mg Tablet) 500 mg PO BID [facility] Last Admin: 07/22/24 09:36 Dose: 500 mg Documented By: NIKITA Clotrimazole (Clotrimazole 1 % Cream 15 Gm Tube) 1 appl TOPICAL BEDTIME [facility] Last Admin: 07/21/24 20:14 Dose: Not Given Documented By: SANAZ Non-Admin Reason: Med Not Available Diphenhydramine HCl (Diphenhydramine Hcl 50 Mg/Ml Vial) 25 mg IVPUSH Q6H PRN PRN Reason: Itching Last Admin: 07/21/24 20:13 Dose: 25 mg Documented By: SANAZ Docusate Sodium (Docusate Sodium 100 Mg Capsule) 100 mg PO BID [facility] Last Admin: 07/22/24 09:36 Dose: 100 mg Documented By: NIKITA Enoxaparin Sodium (Enoxaparin Sodium 40 Mg/0.4 Ml Syringe) 40 mg SUBCUT Q24H [facility] Last Admin: 07/21/24 20:13 Dose: 40 mg Documented By: SANAZ Ferrous Sulfate (Ferrous Sulfate 324 Mg Tablet.) 324 mg PO DAILY [facility] Last Admin: 07/22/24 09:36 Dose: 324 mg Documented By: NIKITA Fluticasone/Vilanterol (Fluticasone/Vilanterol 200/25 Blst.W.Dev) 1 puff INHALE RDAILY [facility] Last Admin: 07/22/24 08:09 Dose: 1 puff Documented By: AJIT Furosemide (Furosemide 40 Mg Tablet) 40 mg PO DAILY [facility]; Protocol Last Admin: 07/22/24 09:37 Dose: 40 mg Documented By: NIKITA Doxycycline Hyclate 100 mg/ (Sodium Chloride) 250 mls @ 166.67 mls/hr IV Q12H [facility] Last Admin: 07/22/24 09:41 Dose: 166.67 mls/hr Documented By: NIKITA Vancomycin HCl 1,500 mg/ (Sodium Chloride) 500 mls @ 333.333 mls/hr IV Q24H [facility] Loratadine (Loratadine 10 Mg Tablet) 10 mg PO DAILY [facility] Last Admin: 07/22/24 09:36 Dose: 10 mg Documented By: NIKITA Magnesium Hydroxide (Milk Of Magnesia 30 Ml Oral.Susp) 30 ml PO DAILY PRN PRN Reason: Constipation Melatonin (Melatonin 3 Mg Tablet) 6 mg PO BEDTIME PRN PRN Reason: Insomnia Montelukast Sodium (Montelukast Sodium 10 Mg Tablet) 10 mg PO BEDTIME [facility] Last Admin: 07/21/24 20:14 Dose: 10 mg Documented By: SANAZ Naproxen (Naproxen 250 Mg Tablet) 250 mg PO DAILY [facility] Last Admin: 07/22/24 09:36 Dose: 250 mg Documented By: NIKITA Omeprazole (Omeprazole 20 Mg Capsule.) 20 mg PO BID@0630,1630 [facility] Last Admin: 07/22/24 04:47 Dose: 20 mg Documented By: SANAZ Ondansetron HCl (Ondansetron Hcl 4 Mg/2 Ml Vial) 4 mg IVPUSH Q8H PRN PRN Reason: Nausea and Vomiting Pharmacy Consult (Consult Rx Vancomycin Dosing) 1 each MISCELLANE DAILY PRN PRN Reason: Consult order Sodium Chloride (0.9 % Sodium Chloride Flush 3 Ml Syringe) 3 ml IVFLUSH QSHIFT [facility]PLACED BY [facility] Last Admin: 07/22/24 09:42 Dose: 3 ml Documented By: NIKITA Triamcinolone Acetonide (Triamcinolone Acet 0.1 % Oint 15 Gm Tube) 1 appl TOPICAL BID PRN PRN Reason: Redness Vitamin D (Cholecalciferol (Vitamin D3) 25 Mcg Tablet) 25 mcg PO DAILY [facility] Last Admin: 07/22/24 09:36 Dose: 25 mcg Documented By: NIKITA Labs 07/22/24 05:44 07/22/24 05:44 Labs: Laboratory Results - last 24 hr 07/21/24 07/22/24 07/22/24 10:51 05:44 09:24 Hold Purple Top SEE NOTE Anion Gap 13 Estim Creat Clear Calc 92.7 Estimated GFR > 60 Fasting Glucose 104 H Calcium 9.8 Random Vancomycin 12.5 L 13.1 L Assessment and Plan (1) Cellulitis of right leg: Status: Acute Plan 53-year-old female with pertinent history of cerebral palsy, asthma not on home oxygen, FARTUN on CPAP at bedtime, gastroesophageal reflux disease who presents to the emergency department for concerns of right leg infection. Right lower extremity cellulitis, no sepsis, failed oral therapy, improving see pic above -iv vanco, follow level and renal function -id consult -hold vanco given high level, check random - iv doxy Hypokalemia Repleted and resolved FARTUN - CPAP at bedtime mild persistent Asthma, no exacerbation -continue routine inhalers chronic leg edema, no dvt -continue lasix GERD -PPI DVT prophylaxis: Lovenox Full code inpt for IV Abx for cellulitis covering more than 50% Quality Stroke Does the patient have a stroke diagnosis?: No VTE Prior VTE?: No VTE Risk Level:: Medical - moderate - high VTE Device Contraindication: Treatment Not Indicated VTE Drug Contraindication: N/A - Med Ordered
[2024-07-22 10:30] LABS: MANUAL DIFF FLAG NO
[2024-07-22 10:34] LABS: Basophils Percent Auto 0.3 % (0-2); Eosinophils Absolute Auto 0.5 X10*3/uL (0.0-0.4); Eosinophils Percent Auto 5.7 % (0-4); Hematocrit 32.1 % (37.0-47.0); Hemoglobin 10.5 g/dl (12.0-16.0); Imm Gran Abs Auto 0.06 X10*3/uL (0.00-0.03); Imm Gran Pct Auto 0.7 % (0.0-0.4); Lymphocytes Absolute Auto 1.8 X10*3/uL (1.2-4.9); Lymphocytes Percent Auto 20.7 % (20-40); Mean Corpuscular HGB Conc 32.7 g/dl (31.0-35.0); Mean Corpuscular Hemoglobin 28.2 pg (27.0-33.0); Mean Corpuscular Volume 86.3 fL (80.0-98.0); Mean Platelet Volume 10.9 fL (9.4-12.3); Monocytes Absolute Auto 0.6 X10*3/uL (0.1-1.2); Monocytes Percent Auto 7.2 % (2-11); Neutrophils Absolute Auto 5.7 x10*3/uL (2.0-8.3); Neutrophils Percent Auto 65.4 % (45-73); Platelet Count 274 X10*3/uL (160-400); Red Blood Count 3.72 X10*6/uL (4.20-5.50); Red Cell Distribution Width 13.4 % (11.0-16.0); White Blood Count 8.7 X10*3/uL (4.8-10.8)
--- NOTE | 2024-07-22 10:48 | MHC.CM.PN ---
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
[2024-07-22] MEDS: vancomycin HCL 1,500 MG in 0.9 % Sodium Chloride 500 ML 333.33 MG IV (11:19)
[2024-07-22] MEDS: Montelukast Sodium 10 MG TABLET PO (20:27)
[2024-07-22] MEDS: Amitriptyline HCl 10 MG TABLET PO (20:27)
[2024-07-22] MEDS: Triamcinolone Acet 0.1 % Oint 15 GM TUBE 1 APPL TOPICAL (20:27)
[2024-07-22] MEDS: diphenhydrAMINE HCL 50 MG/ML VIAL 25 MG IVPUSH (20:27)
[2024-07-22] MEDS: Clotrimazole 1 % Cream 15 GM TUBE 1 APPL TOPICAL (20:27)
[2024-07-22] MEDS: Enoxaparin Sodium 40 MG/0.4 ML SYRINGE SUBCUT (22:45)
[2024-07-23 03:29] VITALS: BP 112/63; PULSE 87; RESP 16; TEMP 36.5; O2SAT 93
[2024-07-23] MEDS: Omeprazole 20 MG CAPSULE.DR PO ×2 (05:48→16:37)
[2024-07-23 06:55] LABS: Anion Gap 13 (12-20); Blood Urea Nitrogen 16 mg/dL (9-16); Calcium 9.6 mg/dL (8.4-10.2); Carbon Dioxide 25 mmol/L (22-29); Chloride 107 mmol/L (96-108); Creatinine Clr Calc Pharmacy 90.1; Estimated Glomerular Filt Rate > 60; Glucose Fasting 99 mg/dL (60-99); Potassium 3.4 mmol/L (3.3-5.1); Sodium 142 mmol/L (135-145)
[2024-07-23] MEDS: Fluticasone/Vilanterol 200/25 BLST.W.DEV 1 PUFF INHALE (07:55)
[2024-07-23 07:56] VITALS: PULSE 83; RESP 16; O2SAT 96
[2024-07-23 08:00] VITALS: BP 101/52; PULSE 82; RESP 18; TEMP 36.2; O2SAT 93
[2024-07-23] MEDS: Loratadine 10 MG TABLET PO (08:54)
[2024-07-23] MEDS: Cholecalciferol (Vitamin D3) 25 MCG TABLET PO (08:54)
[2024-07-23] MEDS: NaPROXEN 250 MG TABLET PO (08:54)
[2024-07-23] MEDS: Ascorbic Acid 500 MG TABLET PO (08:54)
[2024-07-23] MEDS: Ferrous Sulfate 324 MG TABLET.DR PO (08:54)
[2024-07-23] MEDS: Docusate Sodium 100 MG CAPSULE PO ×2 (08:54→20:28)
[2024-07-23] MEDS: Furosemide 40 MG TABLET PO (08:54)
[2024-07-23] MEDS: Calcium Oyster Shell Elemental 500 MG TABLET PO ×2 (08:55→20:28)
[2024-07-23] MEDS: Doxycycline Hyclate 100 MG in 0.9 % Sodium Chloride 250 ML 166.67 MG IV (08:58)
--- NOTE | 2024-07-23 09:59 | P.PNIM_ITS ---
Subjective Subjective Date of Service: 07/23/24 Interval History: redness and pain is much better, area is itchy Physical Exam 2 Vital Signs: Vital Signs: Last Vital Signs Temp 97.2 F 07/23/24 08:00 Pulse 82 07/23/24 08:00 Resp 18 07/23/24 08:00 BP 101/52 L 07/23/24 08:00 Pulse Ox 93 07/23/24 08:00 O2 Del Method Room Air 07/23/24 08:00 BMI result Body Mass Index 31.0 Const: Other: General: AO X 3, no acute distress Resp: CTA bilateral CVS: S1,S2,RRR GI: +BS, NT, no distention Skin: 07/19 07/20 07/21 07/22 tody Neuro: motor grossly intact Psych: appropriate affect Objective Data Active Medications Acetaminophen (Acetaminophen 325 Mg Tablet) 650 mg PO Q6H PRN PRN Reason: Pain, Mild (Pain Scale 1-3), fever or headache Last Admin: 07/19/24 15:52 Dose: 650 mg Documented By: SHERRY Albuterol Sulfate (Albuterol Sulfate 90 Mcg 8 Gm Inhaler) 2 puff INHALE Q4H PRN PRN Reason: Wheezing/SOB Amitriptyline HCl (Amitriptyline Hcl 10 Mg Tablet) 10 mg PO BEDTIME [facility] Last Admin: 07/22/24 20:27 Dose: 10 mg Documented By: MIRIAM Ascorbic Acid (Ascorbic Acid 500 Mg Tablet) 500 mg PO DAILY [facility] Last Admin: 07/23/24 08:54 Dose: 500 mg Documented By: NEVA Calcium Carbonate (Calcium Carbonate 750 Mg Tab.Chew) 750 mg PO Q4H PRN PRN Reason: Heartburn Calcium Carbonate (Calcium Oyster Shell Elemental 500 Mg Tablet) 500 mg PO BID [facility] Last Admin: 07/23/24 08:55 Dose: 500 mg Documented By: NEVA Clotrimazole (Clotrimazole 1 % Cream 15 Gm Tube) 1 appl TOPICAL BEDTIME [facility] Last Admin: 07/22/24 20:27 Dose: 1 appl Documented By: MIRIAM Diphenhydramine HCl (Diphenhydramine Hcl 50 Mg/Ml Vial) 25 mg IVPUSH Q6H PRN PRN Reason: Itching Last Admin: 07/22/24 20:27 Dose: 25 mg Documented By: MIRIAM Docusate Sodium (Docusate Sodium 100 Mg Capsule) 100 mg PO BID [facility] Last Admin: 07/23/24 08:54 Dose: 100 mg Documented By: NEVA Enoxaparin Sodium (Enoxaparin Sodium 40 Mg/0.4 Ml Syringe) 40 mg SUBCUT Q24H [facility] Last Admin: 07/22/24 22:45 Dose: 40 mg Documented By: MIRIAM Ferrous Sulfate (Ferrous Sulfate 324 Mg Tablet.Dr) 324 mg PO DAILY [facility] Last Admin: 07/23/24 08:54 Dose: 324 mg Documented By: NEVA Fluticasone/Vilanterol (Fluticasone/Vilanterol 200/25 Blst.W.Dev) 1 puff INHALE RDAILY [facility] Last Admin: 07/23/24 07:55 Dose: 1 puff Documented By: MARIELENA Furosemide (Furosemide 40 Mg Tablet) 40 mg PO DAILY [facility]; Protocol Last Admin: 07/23/24 08:54 Dose: 40 mg Documented By: NEVA Doxycycline Hyclate 100 mg/ (Sodium Chloride) 250 mls @ 166.67 mls/hr IV Q12H [facility] Last Admin: 07/23/24 08:58 Dose: 166.67 mls/hr Documented By: NEVA Vancomycin HCl 1,500 mg/ (Sodium Chloride) 500 mls @ 333.333 mls/hr IV Q24H [facility] Last Infusion: 07/22/24 13:12 Dose: Infused Documented By: NIKITA Loratadine (Loratadine 10 Mg Tablet) 10 mg PO DAILY [facility] Last Admin: 07/23/24 08:54 Dose: 10 mg Documented By: NEVA Magnesium Hydroxide (Milk Of Magnesia 30 Ml Oral.Susp) 30 ml PO DAILY PRN PRN Reason: Constipation Melatonin (Melatonin 3 Mg Tablet) 6 mg PO BEDTIME PRN PRN Reason: Insomnia Montelukast Sodium (Montelukast Sodium 10 Mg Tablet) 10 mg PO BEDTIME [facility] Last Admin: 07/22/24 20:27 Dose: 10 mg Documented By: MIRIAM Naproxen (Naproxen 250 Mg Tablet) 250 mg PO DAILY [facility] Last Admin: 07/23/24 08:54 Dose: 250 mg Documented By: NEVA Omeprazole (Omeprazole 20 Mg Capsule.) 20 mg PO BID@0630,6110 [facility] Last Admin: 07/23/24 05:48 Dose: 20 mg Documented By: MIRIAM Ondansetron HCl (Ondansetron Hcl 4 Mg/2 Ml Vial) 4 mg IVPUSH Q8H PRN PRN Reason: Nausea and Vomiting Pharmacy Consult (Consult Rx Vancomycin Dosing) 1 each MISCELLANE DAILY PRN PRN Reason: Consult order Sodium Chloride (0.9 % Sodium Chloride Flush 3 Ml Syringe) 3 ml IVFLUSH QSHIFT [facility] Last Admin: 07/23/24 08:42 Dose: Not Given Documented By: NEVA Non-Admin Reason: IV Running Triamcinolone Acetonide (Triamcinolone Acet 0.1 % Oint 15 Gm Tube) 1 appl TOPICAL BID PRN PRN Reason: Redness Last Admin: 07/22/24 20:27 Dose: 1 appl Documented By: MIRIAM Vitamin D (Cholecalciferol (Vitamin D3) 25 Mcg Tablet) 25 mcg PO DAILY [facility] Last Admin: 07/23/24 08:54 Dose: 25 mcg Documented By: NEVA Labs 07/22/24 05:44 07/23/24 05:40 Labs: Laboratory Results - last 24 hr 07/22/24 07/23/24 05:44 05:40 MCV 86.3 MCH 28.2 MCHC 32.7 RDW 13.4 Plt Count 274 MPV 10.9 Immature Gran % (Auto) 0.7 H Neut % (Auto) 65.4 Lymph % (Auto) 20.7 [place] % (Auto) 7.2 Eos % (Auto) 5.7 H Baso % (Auto) 0.3 Lymph # (Auto) 1.8 [place] # (Auto) 0.6 Eos # (Auto) 0.5 H Baso # (Auto) 0.0 Abs Immat Gran (auto) 0.06 H Absolute Neuts (auto) 5.7 Absolute Nucleated RBC 0.000 Nucleated RBC % (auto) 0.0 Hold Purple Top SEE NOTE Anion Gap 13 Estim Creat Clear Calc 90.1 Estimated GFR > 60 Fasting Glucose 99 Calcium 9.6 Assessment and Plan (1) Cellulitis of right leg: Status: Acute Plan 53-year-old female with pertinent history of cerebral palsy, asthma not on home oxygen, FARTUN on CPAP at bedtime, gastroesophageal reflux disease who presents to the emergency department for concerns of right leg infection. Right lower extremity cellulitis, no sepsis, failed oral therapy, improving see pic above -iv vanco, follow level and renal function -transition to oral Augmentin and Doxy -topical steroid Hypokalemia Repleted and resolved FARTUN - CPAP at bedtime mild persistent Asthma, no exacerbation -continue routine inhalers chronic leg edema, no dvt -continue lasix GERD -PPI DVT prophylaxis: Lovenox Full code inpt for IV Abx for cellulitis covering more than 50% PT is recommending STR but she's wants to go home with services Quality Stroke Does the patient have a stroke diagnosis?: No VTE Prior VTE?: No VTE Risk Level:: Medical - moderate - high VTE Device Contraindication: Treatment Not Indicated VTE Drug Contraindication: N/A - Med Ordered
[2024-07-23 10:07] LABS: MANUAL DIFF FLAG NO
[2024-07-23 10:08] LABS: Vancomycin Random 15.3 mcg/mL (15-20)
[2024-07-23 10:23] LABS: Basophils Percent Auto 0.2 % (0-2); Eosinophils Absolute Auto 0.5 X10*3/uL (0.0-0.4); Eosinophils Percent Auto 5.5 % (0-4); Hematocrit 31.2 % (37.0-47.0); Hemoglobin 10.2 g/dl (12.0-16.0); Imm Gran Abs Auto 0.06 X10*3/uL (0.00-0.03); Imm Gran Pct Auto 0.7 % (0.0-0.4); Lymphocytes Absolute Auto 1.7 X10*3/uL (1.2-4.9); Lymphocytes Percent Auto 19.6 % (20-40); Mean Corpuscular HGB Conc 32.7 g/dl (31.0-35.0); Mean Corpuscular Hemoglobin 28.4 pg (27.0-33.0); Mean Corpuscular Volume 86.9 fL (80.0-98.0); Mean Platelet Volume 11.4 fL (9.4-12.3); Monocytes Absolute Auto 0.7 X10*3/uL (0.1-1.2); Monocytes Percent Auto 7.5 % (2-11); Neutrophils Absolute Auto 5.9 x10*3/uL (2.0-8.3); Neutrophils Percent Auto 66.5 % (45-73); Platelet Count 255 X10*3/uL (160-400); Red Blood Count 3.59 X10*6/uL (4.20-5.50); Red Cell Distribution Width 13.4 % (11.0-16.0); White Blood Count 8.8 X10*3/uL (4.8-10.8)
[2024-07-23] MEDS: Amoxicillin/Potassium Clav 875 MG TABLET PO ×2 (11:00→22:21)
[2024-07-23] MEDS: Hydrocortisone 1 % Cream 28.35 GM TUBE 1 APPL TOPICAL (12:28)
[2024-07-23] MEDS: Acetaminophen 325 MG TABLET 650 MG PO (14:59)
[2024-07-23] MEDS: 0.9 % Sodium Chloride Flush 3 ML SYRINGE IVFLUSH (15:02)
[2024-07-23 15:53] VITALS: BP 108/65; PULSE 86; RESP 20; TEMP 36.6; O2SAT 92
[2024-07-23 19:51] VITALS: BP 114/53; PULSE 88; RESP 20; TEMP 36.4; O2SAT 93
[2024-07-23] MEDS: Doxycycline Monohydrate 100 MG CAPSULE PO (20:28)
[2024-07-23] MEDS: Amitriptyline HCl 10 MG TABLET PO (20:28)
[2024-07-23] MEDS: Montelukast Sodium 10 MG TABLET PO (20:28)
[2024-07-23] MEDS: Triamcinolone Acet 0.1 % Oint 15 GM TUBE 1 APPL TOPICAL (20:29)
[2024-07-23] MEDS: Clotrimazole 1 % Cream 15 GM TUBE 1 APPL TOPICAL (20:34)
[2024-07-23] MEDS: Enoxaparin Sodium 40 MG/0.4 ML SYRINGE SUBCUT (22:21)
[2024-07-23 22:37] VITALS: RESP 20
[2024-07-24 03:25] VITALS: BP 119/63; PULSE 78; RESP 18; TEMP 36.7; O2SAT 94
[2024-07-24] MEDS: Omeprazole 20 MG CAPSULE.DR PO ×2 (06:09→16:01)
[2024-07-24] MEDS: Hydrocortisone 1 % Cream 28.35 GM TUBE 1 APPL TOPICAL (06:11)
[2024-07-24 07:00] LABS: Anion Gap 15 (12-20); Blood Urea Nitrogen 18 mg/dL (9-16); Calcium 10.1 mg/dL (8.4-10.2); Carbon Dioxide 25 mmol/L (22-29); Chloride 104 mmol/L (96-108); Creatinine Clr Calc Pharmacy 84.2; Estimated Glomerular Filt Rate > 60; Glucose Fasting 103 mg/dL (60-99); Potassium 3.3 mmol/L (3.3-5.1); Sodium 141 mmol/L (135-145)
[2024-07-24] MEDS: Fluticasone/Vilanterol 200/25 BLST.W.DEV 1 PUFF INHALE (07:35)
[2024-07-24 07:36] VITALS: PULSE 64; RESP 18; O2SAT 96
[2024-07-24 08:00] VITALS: BP 119/77; PULSE 83; RESP 14; TEMP 36.3; O2SAT 96
[2024-07-24] MEDS: Docusate Sodium 100 MG CAPSULE PO ×2 (08:53→20:45)
[2024-07-24] MEDS: Doxycycline Monohydrate 100 MG CAPSULE PO ×2 (08:53→20:45)
[2024-07-24] MEDS: Loratadine 10 MG TABLET PO (08:54)
[2024-07-24] MEDS: NaPROXEN 250 MG TABLET PO (08:54)
[2024-07-24] MEDS: Calcium Oyster Shell Elemental 500 MG TABLET PO ×2 (08:54→20:45)
[2024-07-24] MEDS: Furosemide 40 MG TABLET PO (08:54)
[2024-07-24] MEDS: Ascorbic Acid 500 MG TABLET PO (08:54)
[2024-07-24] MEDS: Cholecalciferol (Vitamin D3) 25 MCG TABLET PO (08:54)
[2024-07-24] MEDS: Ferrous Sulfate 324 MG TABLET.DR PO (08:54)
[2024-07-24] MEDS: 0.9 % Sodium Chloride Flush 3 ML SYRINGE IVFLUSH ×2 (08:59→16:04)
--- NOTE | 2024-07-24 09:38 | P.PNIM_ITS ---
Subjective Subjective Date of Service: 07/25/24 Interval History: No new issues, redness is better no fever Physical Exam 2 Vital Signs: Vital Signs: Last Vital Signs Temp 97.3 F 07/24/24 08:00 Pulse 83 07/24/24 08:00 Resp 14 07/24/24 08:00 BP 119/77 07/24/24 08:00 Pulse Ox 96 07/24/24 08:00 O2 Del Method Room Air 07/24/24 08:00 BMI result Body Mass Index 31.0 Const: Other: General: AO X 3, no acute distress Resp: CTA bilateral CVS: S1,S2,RRR GI: +BS, NT, no distention Skin: 07/19 07/20 07/21 07/22 tody Neuro: motor grossly intact Psych: appropriate affect Objective Data Active Medications Acetaminophen (Acetaminophen 325 Mg Tablet) 650 mg PO Q6H PRN PRN Reason: Pain, Mild (Pain Scale 1-3), fever or headache Last Admin: 07/23/24 14:59 Dose: 650 mg Documented By: NEVA Albuterol Sulfate (Albuterol Sulfate 90 Mcg 8 Gm Inhaler) 2 puff INHALE Q4H PRN PRN Reason: Wheezing/SOB Amitriptyline HCl (Amitriptyline Hcl 10 Mg Tablet) 10 mg PO BEDTIME [facility] Last Admin: 07/23/24 20:28 Dose: 10 mg Documented By: MIRIAM Amoxicillin/Clavulanate Potassium (Amoxicillin/Potassium Clav 875 Mg Tablet) 875 mg PO Q12H [facility] Last Admin: 07/23/24 22:21 Dose: 875 mg Documented By: MIRIAM Ascorbic Acid (Ascorbic Acid 500 Mg Tablet) 500 mg PO DAILY [facility] Last Admin: 07/24/24 08:54 Dose: 500 mg Documented By: NEVA Calcium Carbonate (Calcium Carbonate 750 Mg Tab.Chew) 750 mg PO Q4H PRN PRN Reason: Heartburn Calcium Carbonate (Calcium Oyster Shell Elemental 500 Mg Tablet) 500 mg PO BID [facility] Last Admin: 07/24/24 08:54 Dose: 500 mg Documented By: NEVA Clotrimazole (Clotrimazole 1 % Cream 15 Gm Tube) 1 appl TOPICAL BEDTIME [facility] Last Admin: 07/23/24 20:34 Dose: 1 appl Documented By: MIRIAM Diphenhydramine HCl (Diphenhydramine Hcl 50 Mg/Ml Vial) 25 mg IVPUSH Q6H PRN PRN Reason: Itching Last Admin: 07/22/24 20:27 Dose: 25 mg Documented By: MIRIAM Docusate Sodium (Docusate Sodium 100 Mg Capsule) 100 mg PO BID [facility] Last Admin: 07/24/24 08:53 Dose: 100 mg Documented By: NEVA Doxycycline Monohydrate (Doxycycline Monohydrate 100 Mg Capsule) 100 mg PO Q12H [facility] Last Admin: 07/24/24 08:53 Dose: 100 mg Documented By: NEVA Enoxaparin Sodium (Enoxaparin Sodium 40 Mg/0.4 Ml Syringe) 40 mg SUBCUT Q24H [facility] Last Admin: 07/23/24 22:21 Dose: 40 mg Documented By: MIRIAM Ferrous Sulfate (Ferrous Sulfate 324 Mg Tablet.Dr) 324 mg PO DAILY [facility] Last Admin: 07/24/24 08:54 Dose: 324 mg Documented By: NEVA Fluticasone/Vilanterol (Fluticasone/Vilanterol 200/25 Blst.W.Dev) 1 puff INHALE RDAILY [facility] Last Admin: 07/24/24 07:35 Dose: 1 puff Documented By: MARIELENA Furosemide (Furosemide 40 Mg Tablet) 40 mg PO DAILY [facility]; Protocol Last Admin: 07/24/24 08:54 Dose: 40 mg Documented By: NEVA Hydrocortisone (Hydrocortisone 1 % Cream 28.35 Gm Tube) 1 appl TOPICAL DAILY [facility]; Protocol Last Admin: 07/24/24 06:11 Dose: 1 appl Documented By: MIRIAM Loratadine (Loratadine 10 Mg Tablet) 10 mg PO DAILY [facility] Last Admin: 07/24/24 08:54 Dose: 10 mg Documented By: NEVA Magnesium Hydroxide (Milk Of Magnesia 30 Ml Oral.Susp) 30 ml PO DAILY PRN PRN Reason: Constipation Melatonin (Melatonin 3 Mg Tablet) 6 mg PO BEDTIME PRN PRN Reason: Insomnia Montelukast Sodium (Montelukast Sodium 10 Mg Tablet) 10 mg PO BEDTIME [facility] Last Admin: 07/23/24 20:28 Dose: 10 mg Documented By: MIRIAM Naproxen (Naproxen 250 Mg Tablet) 250 mg PO DAILY [facility] Last Admin: 07/24/24 08:54 Dose: 250 mg Documented By: NEVA Omeprazole (Omeprazole 20 Mg Capsule.Dr) 20 mg PO BID@0630,1630 [facility] Last Admin: 07/24/24 06:09 Dose: 20 mg Documented By: MIRIAM Ondansetron HCl (Ondansetron Hcl 4 Mg/2 Ml Vial) 4 mg IVPUSH Q8H PRN PRN Reason: Nausea and Vomiting Sodium Chloride (0.9 % Sodium Chloride Flush 3 Ml Syringe) 3 ml IVFLUSH QSHIFT [facility] Last Admin: 07/24/24 08:59 Dose: 3 ml Documented By: NEVA Triamcinolone Acetonide (Triamcinolone Acet 0.1 % Oint 15 Gm Tube) 1 appl TOPICAL BID PRN PRN Reason: Redness Last Admin: 07/23/24 20:29 Dose: 1 appl Documented By: MIRIAM Vitamin D (Cholecalciferol (Vitamin D3) 25 Mcg Tablet) 25 mcg PO DAILY [facility] Last Admin: 07/24/24 08:54 Dose: 25 mcg Documented By: NEVA Labs 07/23/24 05:40 07/25/24 06:11 Labs: Laboratory Results - last 24 hr 07/23/24 07/23/24 07/24/24 05:40 09:08 05:49 MCV 86.9 MCH 28.4 MCHC 32.7 RDW 13.4 Plt Count 255 MPV 11.4 Immature Gran % (Auto) 0.7 H Neut % (Auto) 66.5 Lymph % (Auto) 19.6 L [place] % (Auto) 7.5 Eos % (Auto) 5.5 H Baso % (Auto) 0.2 Lymph # (Auto) 1.7 [place] # (Auto) 0.7 Eos # (Auto) 0.5 H Baso # (Auto) 0.0 Abs Immat Gran (auto) 0.06 H Absolute Neuts (auto) 5.9 Absolute Nucleated RBC 0.000 Nucleated RBC % (auto) 0.0 Anion Gap 15 Estim Creat Clear Calc 84.2 Estimated GFR > 60 Fasting Glucose 103 H Calcium 10.1 Random Vancomycin 15.3 Microbiology Microbiology Results: Microbiology 07/18/24 20:37 Blood Culture - Final Blood - Venous No growth after 5 days. 07/18/24 20:40 Blood Culture - Final Blood - Venous No growth after 5 days. Assessment and Plan (1) Cellulitis of right leg: Status: Acute Plan 53-year-old female with pertinent history of cerebral palsy, asthma not on home oxygen, FARTUN on CPAP at bedtime, gastroesophageal reflux disease who presents to the emergency department for concerns of right leg infection. Right lower extremity cellulitis, no sepsis, failed oral therapy, improving see pic above -iv vanco, follow level and renal function -transition to oral Augmentin and Doxy on 07/23 -topical steroid Hypokalemia Repleted and resolved FARTUN - CPAP at bedtime mild persistent Asthma, no exacerbation -continue routine inhalers chronic leg edema, no dvt -continue lasix GERD -PPI DVT prophylaxis: Lovenox Full code inpt for IV Abx for cellulitis covering more than 50% PT is recommending STR but she's wants to go home with services, sister won't be able to help her go home till thursday morning Quality Stroke Does the patient have a stroke diagnosis?: No VTE Prior VTE?: No VTE Risk Level:: Medical - moderate - high VTE Device Contraindication: Treatment Not Indicated VTE Drug Contraindication: N/A - Med Ordered
[2024-07-24] MEDS: Amoxicillin/Potassium Clav 875 MG TABLET PO ×2 (11:01→23:01)
[2024-07-24 15:30] VITALS: BP 105/66; PULSE 97; RESP 20; TEMP 36.5; O2SAT 92
[2024-07-24 20:00] VITALS: BP 113/59; PULSE 94; RESP 18; TEMP 36.1; O2SAT 92
[2024-07-24] MEDS: Montelukast Sodium 10 MG TABLET PO (20:45)
[2024-07-24] MEDS: Amitriptyline HCl 10 MG TABLET PO (20:45)
[2024-07-24] MEDS: Clotrimazole 1 % Cream 15 GM TUBE 1 APPL TOPICAL (20:45)
[2024-07-24] MEDS: Enoxaparin Sodium 40 MG/0.4 ML SYRINGE SUBCUT (23:03)
[2024-07-24 23:25] VITALS: RESP 18
[2024-07-25] MEDS: diphenhydrAMINE HCL 50 MG/ML VIAL 25 MG IVPUSH (01:21)
[2024-07-25 04:00] VITALS: BP 103/59; PULSE 75; RESP 16; TEMP 36; O2SAT 94
[2024-07-25] MEDS: Omeprazole 20 MG CAPSULE.DR PO ×2 (06:31→15:15)
[2024-07-25] MEDS: Triamcinolone Acet 0.1 % Oint 15 GM TUBE 1 APPL TOPICAL (06:32)
[2024-07-25 06:35] LABS: Anion Gap 14 (12-20); Blood Urea Nitrogen 18 mg/dL (9-16); Calcium 10.1 mg/dL (8.4-10.2); Carbon Dioxide 27 mmol/L (22-29); Chloride 103 mmol/L (96-108); Creatinine Clr Calc Pharmacy 85.3; Estimated Glomerular Filt Rate > 60; Glucose Fasting 113 mg/dL (60-99); Potassium 3.5 mmol/L (3.3-5.1); Sodium 140 mmol/L (135-145)
[2024-07-25 07:32] VITALS: PULSE 70; RESP 14; O2SAT 94
[2024-07-25] MEDS: Fluticasone/Vilanterol 200/25 BLST.W.DEV 1 PUFF INHALE (07:32)
[2024-07-25 07:51] VITALS: BP 97/53; PULSE 86; RESP 18; TEMP 36.4; O2SAT 94
[2024-07-25] MEDS: Docusate Sodium 100 MG CAPSULE PO (08:07)
[2024-07-25] MEDS: Loratadine 10 MG TABLET PO (08:07)
[2024-07-25] MEDS: Ascorbic Acid 500 MG TABLET PO (08:08)
[2024-07-25] MEDS: Calcium Oyster Shell Elemental 500 MG TABLET PO (08:08)
[2024-07-25] MEDS: Hydrocortisone 1 % Cream 28.35 GM TUBE 1 APPL TOPICAL (08:08)
[2024-07-25] MEDS: Furosemide 40 MG TABLET PO (08:08)
[2024-07-25] MEDS: Cholecalciferol (Vitamin D3) 25 MCG TABLET PO (08:08)
[2024-07-25] MEDS: NaPROXEN 250 MG TABLET PO (08:08)
[2024-07-25] MEDS: 0.9 % Sodium Chloride Flush 3 ML SYRINGE IVFLUSH ×2 (08:08→15:15)
[2024-07-25] MEDS: Ferrous Sulfate 324 MG TABLET.DR PO (08:08)
[2024-07-25] MEDS: Doxycycline Monohydrate 100 MG CAPSULE PO (09:38)
--- NOTE | 2024-07-25 09:41 | HO.PM.IMPN ---
Subjective Subjective Date of Service: 07/25/24 Interval History: leg seems less tody, no fever Physical Exam Vital Signs: Vital Signs: Last Vital Signs Temp 97.5 F 07/25/24 07:51 Pulse 86 07/25/24 07:51 Resp 18 07/25/24 07:51 BP 97/53 L 07/25/24 07:51 Pulse Ox 94 07/25/24 07:51 O2 Del Method Room Air 07/25/24 07:51 BMI result Body Mass Index 31.0 Const: Other: General: AO X 3, no acute distress Resp: CTA bilateral CVS: S1,S2,RRR GI: +BS, NT, no distention Skin: 07/19 07/20 07/21 07/22 tody Neuro: motor grossly intact Psych: appropriate affect Objective Data Active Medications Acetaminophen (Acetaminophen 325 Mg Tablet) 650 mg PO Q6H PRN PRN Reason: Pain, Mild (Pain Scale 1-3), fever or headache Last Admin: 07/23/24 14:59 Dose: 650 mg Documented By: NEVA Albuterol Sulfate (Albuterol Sulfate 90 Mcg 8 Gm Inhaler) 2 puff INHALE Q4H PRN PRN Reason: Wheezing/SOB Amitriptyline HCl (Amitriptyline Hcl 10 Mg Tablet) 10 mg PO BEDTIME [facility] Last Admin: 07/24/24 20:45 Dose: 10 mg Documented By: JULIETA Ascorbic Acid (Ascorbic Acid 500 Mg Tablet) 500 mg PO DAILY [facility] Last Admin: 07/25/24 08:08 Dose: 500 mg Documented By: SALLY Calcium Carbonate (Calcium Carbonate 750 Mg Tab.Chew) 750 mg PO Q4H PRN PRN Reason: Heartburn Calcium Carbonate (Calcium Oyster Shell Elemental 500 Mg Tablet) 500 mg PO BID [facility] Last Admin: 07/25/24 08:08 Dose: 500 mg Documented By: SALLY Clotrimazole (Clotrimazole 1 % Cream 15 Gm Tube) 1 appl TOPICAL BEDTIME [facility] Last Admin: 07/24/24 20:45 Dose: 1 appl Documented By: JULIETA Diphenhydramine HCl (Diphenhydramine Hcl 50 Mg/Ml Vial) 25 mg IVPUSH Q6H PRN PRN Reason: Itching Last Admin: 07/25/24 01:21 Dose: 25 mg Documented By: RUSS Docusate Sodium (Docusate Sodium 100 Mg Capsule) 100 mg PO BID [facility] Last Admin: 07/25/24 08:07 Dose: 100 mg Documented By: SALLY Enoxaparin Sodium (Enoxaparin Sodium 40 Mg/0.4 Ml Syringe) 40 mg SUBCUT Q24H [facility] Last Admin: 07/24/24 23:03 Dose: 40 mg Documented By: JULIETA Ferrous Sulfate (Ferrous Sulfate 324 Mg Tablet.) 324 mg PO DAILY [facility] Last Admin: 07/25/24 08:08 Dose: 324 mg Documented By: SALLY Fluticasone/Vilanterol (Fluticasone/Vilanterol 200/25 Blst.W.Dev) 1 puff INHALE RDAILY [facility] Last Admin: 07/25/24 07:32 Dose: 1 puff Documented By: MARIELENA Furosemide (Furosemide 40 Mg Tablet) 40 mg PO DAILY [facility]; Protocol Last Admin: 07/25/24 08:08 Dose: 40 mg Documented By: SALLY Hydrocortisone (Hydrocortisone 1 % Cream 28.35 Gm Tube) 1 appl TOPICAL DAILY [facility]; Protocol Last Admin: 07/25/24 08:08 Dose: 1 appl Documented By: SALLY Loratadine (Loratadine 10 Mg Tablet) 10 mg PO DAILY [facility] Last Admin: 07/25/24 08:07 Dose: 10 mg Documented By: SALLY Magnesium Hydroxide (Milk Of Magnesia 30 Ml Oral.Susp) 30 ml PO DAILY PRN PRN Reason: Constipation Melatonin (Melatonin 3 Mg Tablet) 6 mg PO BEDTIME PRN PRN Reason: Insomnia Montelukast Sodium (Montelukast Sodium 10 Mg Tablet) 10 mg PO BEDTIME [facility] Last Admin: 07/24/24 20:45 Dose: 10 mg Documented By: JULIETA Naproxen (Naproxen 250 Mg Tablet) 250 mg PO DAILY [facility] Last Admin: 07/25/24 08:08 Dose: 250 mg Documented By: SALLY Omeprazole (Omeprazole 20 Mg Capsule.) 20 mg PO BID@0630,1630 [facility] Last Admin: 07/25/24 06:31 Dose: 20 mg Documented By: RUSS Ondansetron HCl (Ondansetron Hcl 4 Mg/2 Ml Vial) 4 mg IVPUSH Q8H PRN PRN Reason: Nausea and Vomiting Sodium Chloride (0.9 % Sodium Chloride Flush 3 Ml Syringe) 3 ml IVFLUSH QSHIFT [facility] Last Admin: 07/25/24 08:08 Dose: 3 ml Documented By: SALLY Triamcinolone Acetonide (Triamcinolone Acet 0.1 % Oint 15 Gm Tube) 1 appl TOPICAL BID PRN PRN Reason: Redness Last Admin: 07/25/24 06:32 Dose: 1 appl Documented By: RUSS Vitamin D (Cholecalciferol (Vitamin D3) 25 Mcg Tablet) 25 mcg PO DAILY [facility] Last Admin: 07/25/24 08:08 Dose: 25 mcg Documented By: SALLY Labs 07/23/24 05:40 07/25/24 06:11 Labs: Laboratory Results - last 24 hr 07/25/24 06:11 Anion Gap 14 Estim Creat Clear Calc 85.3 Estimated GFR > 60 Fasting Glucose 113 H Calcium 10.1 Assessment and Plan (1) Cellulitis of right leg: Status: Acute Plan 53-year-old female with pertinent history of cerebral palsy, asthma not on home oxygen, FARTUN on CPAP at bedtime, gastroesophageal reflux disease who presents to the emergency department for concerns of right leg infection. Right lower extremity cellulitis, no sepsis, failed oral therapy, improving see pic above -iv vanco, follow level and renal function -transition to oral Augmentin and Doxy on 07/23 -topical steroid Hypokalemia Repleted and resolved FARTUN - CPAP at bedtime mild persistent Asthma, no exacerbation -continue routine inhalers chronic leg edema, no dvt -continue lasix GERD -PPI DVT prophylaxis: Lovenox Full code inpt for IV Abx for cellulitis covering more than 50% PT is recommending STR but she's wants to go home with services, sister won't be able to help her go home till thursday morning Possible dc later today Quality Stroke Does the patient have a stroke diagnosis?: No VTE Prior VTE?: No VTE Risk Level:: Medical - moderate - high VTE Device Contraindication: Treatment Not Indicated VTE Drug Contraindication: N/A - Med Ordered
[2024-07-25] MEDS: Amoxicillin/Potassium Clav 875 MG TABLET PO (10:14)
--- NOTE | 2024-07-25 13:15 | P.DS_ITS ---
DS: Providers Provider Date of Service: 07/25/24 Date of admission: 07/18/24 22:34 Primary care physician: Marisabel Michel MD Consults: 07/21/24 09:45 Consult to Infectious Diseases Routine Consulting Provider: [facility] Reason for consultation: cellulitis of the leg Has provider been notified: No DS: Diagnosis Discharge Diagnosis (1) Cellulitis of right leg: Status: Acute DS: Summary Hospital Course Hospital Course: admission hpi Chief Complaint: Skin infection This is a 53-year-old female with pertinent history of cerebral palsy, asthma not on home oxygen, FARTUN on CPAP at bedtime, gastroesophageal reflux disease, bilateral dependent leg edema on furosemide who presents to the emergency department for concerns of right leg infection. Patient states she noticed redness, swelling of her right leg that started 6 days prior to presentation. It has been progressive and associated with warmth and pain. Patient started oral Keflex 5 days ago but no improvement in redness, swelling or warmth. Also has associated chills. No fever, chest discomfort, shortness of breath, palpitations, chest pain, abdominal pain, changes in urinary or bowel habits. In the emergency department, patient was given IV vancomycin. hospital course: Patient presented with with leg cellulitis that had been treated with Keflex and did not improve. She was admitted and initially treated with IV Vancomycin and once improved was transitioned to oral Doxycline and Augmentin, she was unable to leave the hospital as sister could not be available to help her. Physical therapy saw her and recommended rehab however she declined in place lieu of going home with VNA -topical steroid Hypokalemia Repleted and resolved FARTUN - CPAP at bedtime mild persistent Asthma, no exacerbation -continue routine inhalers chronic leg edema, no dvt -continue lasix GERD -PPI Time Attestation Discharge Coordination Time (in mins): 45 Quality: Safe Use of Opioids Does Pt have an Active Cancer Diagnosis on the Problem List?: No Quality: Stroke Does the patient have a stroke diagnosis?: No Physical Exam Vital Signs: Vital Signs: Last Vital Signs Temp 97.5 F 07/25/24 07:51 Pulse 86 07/25/24 07:51 Resp 18 07/25/24 07:51 BP 97/53 L 07/25/24 07:51 Pulse Ox 94 07/25/24 07:51 O2 Del Method Room Air 07/25/24 07:51 BMI result Body Mass Index 31.0 DS: Data Data Completed and Pending Labs on day of discharge: Laboratory Results - last 24 hr 07/25/24 06:11 Sodium 140 Potassium 3.5 Chloride 103 Carbon Dioxide 27 Anion Gap 14 BUN 18 H Creatinine 0.76 Estim Creat Clear Calc 85.3 Estimated GFR > 60 Fasting Glucose 113 H Calcium 10.1 Discharge Plan Discharge Anticipated Discharge Date/Time: 07/25/24 13:24 Patient Disposition: Home Health Service Discharge Diagnosis: Cellulitis of the leg Referrals: Marisabel Michel MD [Primary Care Provider] - 1 Week Discharge Medications: New amoxicillin-pot clavulanate 875-125 mg Tablet 1 tab PO Q12H Qty: 10 0RF doxycycline hyclate 100 mg tablet 100 mg PO BID 5 Days Qty: 10 0RF Continued fluticasone furoate-vilanterol [Breo Ellipta] 200-25 mcg/dose blister with device 1 inh inhalation DAILY 30 Days Qty: 1 6RF cetirizine 10 mg tablet 10 mg PO DAILY 30 Days Qty: 30 2RF montelukast 10 mg tablet 10 mg PO BEDTIME Qty: 90 0RF furosemide 40 mg tablet 40 mg PO DAILY ciclopirox 0.77 % cream 1 appl topical BEDTIME naproxen 375 mg tablet 375 mg PO DAILY diclofenac sodium 1 % gel 1 g topical DAILY PRN (Reason: Pain) albuterol sulfate 90 mcg/actuation HFA aerosol inhaler 2 puff inhalation Q4H PRN (Reason: Wheezing/SOB) docusate sodium 100 mg capsule 100 mg PO BID omeprazole 20 mg capsule,delayed release(DR/EC) 20 mg PO BID@0630,1630 ascorbic acid (vitamin C) 500 mg tablet 500 mg PO DAILY ferrous sulfate 325 mg (65 mg iron) tablet 325 mg PO DAILY cholecalciferol (vitamin D3) 25 mcg (1,000 unit) capsule 25 mcg PO DAILY triamcinolone acetonide 0.1 % ointment 1 appl topical BID PRN (Reason: Redness) alendronate 70 mg tablet 70 mg PO TH amitriptyline 10 mg tablet 10 mg PO BEDTIME calcium carbonate 500 mg calcium (1,250 mg) tablet 500 mg PO BID Discontinued cephalexin 500 mg capsule 500 mg PO Q6H Discharge Orders: Discharge Order (Routine); Ordered 07/25/24 Ordered By: Vick Hand Diet: Advance to usual diet Activity on Discharge: As tolerated Stand Alone Forms: Patient Portal Discharge page Print Language: Vietnamese Care Plan Goals: recovery from cellulitis Health Concerns: cellulitis of the leg Plan of Treatment: take augmentin and doxycyline as recommended and follow up with your Doctor in a week Assessment: see above Discharge Date/Time: 07/25/24 17:00
--- NOTE | 2024-07-25 15:03 | P.F2F_ITS ---
Service Date Service Date: 07/25/24 Encounter Date of encounter: 07/25/24 Reasons for Services Signs and symptoms assessed: weakness, pain in the leg Reason for mcfp: wound care, medication management and teach disease management Reason for physical therapy: home safety and mobility and therapeutic exercises Homebound: Leaving the home is medically contraindicated at this time without the asist of a device and/or another person due th the listed conditions above and below. Reason homebound: unsteady gait / fall risk Homebound supporting statement: Homebound due to pain in the leg, weakness from hospitalization, doesn't drive and therefore needs the assistance of another person Certification: Based on the above findings, I certify that this patient is confined to the home and needs intermittent mcfp care, physical therapy and/or speech therapy, or continues to need occupational therapy. The patient is under my care, and I have initiated the establishment of the plan of care. The patient will be followed by a physician who will periodically review the plan of care. Time Spent With Patient Time: Total time managing care of this patient today ____ minutes.
[2024-07-25 15:33] VITALS: BP 104/57; PULSE 97; RESP 18; TEMP 36.6; O2SAT 94
--- NOTE | 2024-07-25 15:47 | MHC.CM.PN ---
PT WAS MEDICALLY CLEARED YESTERDAY, HOWEVER CM WAS UNABLE TO REACH HER SISTER/CAREGIVER PT REPORTED HER SISTER WAS OUT OF TOWN AND WOULD BE BACK TODAY CM CALLED KIERAN [phone] AGAIN TODAY AND SPOKE TO HER SHE IS AWARE PT IS MEDICALLY CLEARED AND CONFIRMS SHE IS HER RELATIONS DIRECTOR AND SHE HAS NO OTHER SERVICES PER DISCUSSION, PT WILL GO HOME VIA [facility] AT 1700 HOURS KIERAN WILL BE AT THE HOME TO RECEIVE HER
== END 2024-07-25 17:00 | disposition home health service (06) | DRG 603 ==
LOC: HO.ED 20:09 → HO.EDOVER 22:39 → HO.S3 22:59
PROVIDERS: Admitting Provider Student in an Organized Health Care Education/Training Program; Emergency Provider Internal Medicine; PCP Family Medicine; Visit Provider Internal Medicine
DX: L03.115 Cellulitis of right lower limb (principal); E87.6 Hypokalemia; G47.33 Obstructive sleep apnea (adult) (pediatric); K21.9 Gastro-esophageal reflux disease without esophagitis; R60.0 Localized edema; J45.30 Mild persistent asthma, uncomplicated; G80.9 Cerebral palsy, unspecified; Z99.3 Dependence on wheelchair; Z79.899 Other long term (current) drug therapy
CPT/HCPCS: 36415; 71045; 80048; 80053; 80202; 83605; 85025; 87040; 87086; 93971; 94660; 97162; 99285; J1200; J1650; J3370; J3371

== ENCOUNTER → 2024-07-18 22:34 | Outpatient (BNV) | payer OTHER, SELFPAY | PROVIDERS: Admitting Provider Student in an Organized Health Care Education/Training Program; Emergency Provider Internal Medicine; PCP Family Medicine; Visit Provider Student in an Organized Health Care Education/Training Program | DX: L03.115 Cellulitis of right lower limb (principal) | CPT/HCPCS: 99223; 99232; 99239; 99499; G0180 ==

== ENCOUNTER 2024-08-02 16:45 | Outpatient (REF) | payer OTHER, SELFPAY ==
[2024-08-02 18:12] LABS: Erythrocyte Sedimentation Rate 71 MM/HR (0-20)
[2024-08-02 18:26] LABS: Thyroid Stimulating Hormone 2.46 uIU/mL (0.32-4.0); Vitamin D 25-OH Total 54.6 ng/mL (>30)
[2024-08-03 05:21] LABS: Estimated Average Glucose 128 mg/dL; Hemoglobin A1c % 6.1 % (<6.0)
[2024-08-03 05:26] LABS: Parathyroid Hormone Intact 78.5 pg/mL (8.7-77.1)
== END 2024-08-02 16:46 | disposition home or self-care (01) ==
LOC: HO.LAB 16:45
PROVIDERS: PCP Family Medicine; Visit Provider Family Medicine
DX: R70.0 Elevated erythrocyte sedimentation rate (principal); L03.119 Cellulitis of unspecified part of limb; R73.03 Prediabetes; R79.89 Other specified abnormal findings of blood chemistry
CPT/HCPCS: 36415; 82306; 83036; 83970; 84439; 84443; 85652; 86140

== ENCOUNTER 2024-08-17 14:35 | Outpatient (AMB) | payer OTHER, SELFPAY ==
[2024-08-17 14:38] VITALS: BP 122/70; PULSE 86; O2SAT 98
--- NOTE | 2024-08-17 14:38 | A.OFFVIS_ITS ---
Vital Signs 08/17/24 14:38 BP 122/70 Blood Pressure Location Lt brachial Position Sitting Pulse 86 Pulse Source Doppler Pulse Oximetry (%) 98 Oxygen Delivery Method Room Air Intake Visit Reasons: Asthma/FARTUN Allergies budesonide [From SYMBICORT] Allergy (Intermediate, Verified 07/18/24 20:11) TREMOR formoterol [From SYMBICORT] Allergy (Intermediate, Verified 07/18/24 20:11) TREMOR sulfamethoxazole [From BACTRIM] Allergy (Intermediate, Verified 07/18/24 20:11) RASH trimethoprim [From BACTRIM] Allergy (Intermediate, Verified 07/18/24 20:11) RASH Sulfa (Sulfonamide Antibiotics) Allergy (Unknown, Verified 07/18/24 20:11) Unknown Symbicort Allergy (Unknown, Uncoded 07/18/24 20:11) Unknown HPI HPI Asthma/FARTUN: Details: 53-year-old lady, nonsmoker, now seen for asthma, FARTUN, and environmental allergies. Patient has been using Breo and albuterol MDI with good control of her asthma symptoms. She is also on Singulair for the allergic component. Patient had recent hospitalization [facility] for cellulitis at that time her Lasix also has been increased to 40 mg daily Consistent. Her sleep apnea symptoms are well controlled on current CPAP therapy. She denies recent exacerbations. [facility] Medical History Wheelchair dependence Edema of both lower extremities Hx of cerebral palsy GERD (gastroesophageal reflux disease) Asthma Alopecia Surgical History History of surgery Hx of appendectomy History of esophagogastroduodenoscopy (EGD) Hx of colonoscopy Hx of lithotripsy Social History Household Members: Family Housing: House Alcohol intake: never Patient Tobacco Use Status: Never used Tobacco service: No Current occupational status: disabled Review of Systems Const Denies daytime sleepiness, Denies excessive sweating, Denies fatigue, Denies fever(s), Denies lethargy, Denies malaise, Denies night sweats, Denies snoring and Denies weight loss Eyes Denies blurry vision and Denies itchy eyes ENT Denies nasal congestion, Denies post nasal drip, Denies sinus pain, Denies sinus pressure and Denies other ( Thrush) Card Denies chest pain, Denies pedal edema, Denies dyspnea, Denies orthopnea and Denies paroxysmal nocturnal dyspnea Resp Denies cough, Denies hemoptysis, Denies excessive phlegm production, Denies dyspnea, Denies snoring and Denies wheezing GI Denies abdominal pain and Denies heartburn Musc Denies myalgias, Denies arthralgias and Denies joint swelling Skin/Breast Denies rash Neuro Denies memory loss and Denies seizure-like activity Psych Denies abnormal sleep pattern, Denies anxiety and Denies memory loss Endo Denies excessive sweating, Denies fatigue and Denies heat intolerance Craig/Lymph Denies easy bruising Aller/Immun Denies itchy eyes, Denies seasonal rhinorrhea and Denies wheezing Physical Exam Vital Signs: Last Vital Signs Pulse 86 08/17/24 14:38 BP 122/70 08/17/24 14:38 Pulse Ox 98 08/17/24 14:38 Oxygen Delivery Method Room Air 08/17/24 14:38 Const General: no acute distress and alert Nutritional Appearance: not obese Orientation/consciousness: Other orientation findings ( oriented) HEENT Head: Yes atraumatic Eyes General: appearance normal, both eyes and all related structures Sclerae: sclerae normal EOM: EOMs intact bilaterally Neck Neck: Yes supple Lymphatic: no lymphadenopathy noted Resp Effort & Inspection: normal respiratory effort and no use of accessory muscles Auscultation: clear to auscultation bilaterally Cardio Rate: regular rate Rhythm: regular rhythm Heart sounds: no gallops, no murmurs and no rubs Skin General skin exam: other ( warm) Extrem General: No clubbing, No cyanosis and Yes edema ( Trace bilateral) Assessment & Plan Assessment & Plan (1) Asthma: Code(s): J45.909 - Unspecified asthma, uncomplicated Category: Medical Plan: well controlled on current regimen of Breo and albuterol MDI. Continue current regimen. (2) Environmental allergies: Code(s): Z91.09 - Other allergy status, other than to drugs and biological substances Category: Medical Plan: Well controlled on Singulair. Continue current regimen. (3) FARTUN (obstructive sleep apnea): Comment: Moderately severe FARTUN. The total AHI was 24 with oxygen sukh was 72%. Code(s): G47.33 - Obstructive sleep apnea (adult) (pediatric) Category: Medical Plan: Controlled current CPAP therapy. Continue CPAP therapy. (4) Orthopnea: Code(s): R06.01 - Orthopnea Category: Medical Plan: Improved control on Lasix 40 mg daily. Continue current regimen. Coding Level of Care Code Est Pt Level 4 (75967) Diagnoses Asthma J45.909 Environmental allergies Z91.09 FARTUN (obstructive sleep apnea) G47.33 Orthopnea R06.01
== END 2024-08-17 14:55 | disposition home or self-care (01) ==
PROVIDERS: PCP Family Medicine; Visit Provider Internal Medicine Pulmonary Disease
DX: J45.909 Unspecified asthma, uncomplicated (principal); Z91.09 Other allergy status, other than to drugs and biological substances; G47.33 Obstructive sleep apnea (adult) (pediatric); R06.01 Orthopnea
CPT/HCPCS: 99214

== ENCOUNTER → 2024-08-17 14:35 | Outpatient (BNVA) | payer OTHER, SELFPAY | PROVIDERS: PCP Family Medicine; Visit Provider Internal Medicine Pulmonary Disease | DX: J45.909 Unspecified asthma, uncomplicated (principal); R06.01 Orthopnea; G47.33 Obstructive sleep apnea (adult) (pediatric); Z91.09 Other allergy status, other than to drugs and biological substances; Z99.89 Dependence on other enabling machines and devices | CPT/HCPCS: 99212 ==

== ENCOUNTER 2024-08-28 15:55 | Outpatient (REF) | payer OTHER, SELFPAY ==
--- NOTE | ~2024-08-28 | MR_ITS ---
EXAMINATION: MRI LOWER EXTREMITY WITHOUT CONTRAST, RIGHT CLINICAL INFORMATION: Swelling, pain. Patient reports pain for 3 months. COMPARISON: Right knee 05/25/2024. TECHNIQUE: Imaging of the right lower extremity, tibia and fibula without contrast. No gadolinium given due to no IV access. High-field magnet. FINDINGS: Bone/joints: No evidence of significant edema in the tibia or fibula to indicate significant bone bruise, stress or insufficiency injury. No evidence of avascular necrosis. There is subchondral cyst/edema in the lateral femoral condyle and lateral tibial plateau, marginating the joint. This is suboptimally evaluated in the margin of the field of view. Findings are consistent with arthritis. This is better evaluated on the previous knee MRI. The visualized portion of the ankle is not well evaluated on the provided images. Soft tissues: There is a circumferential extensive prominent soft tissue swelling and prominent increased T2 signal in the subcutaneous tissues which could reflect edema or cellulitis. No organized fluid collection is identified in the noncontrast images. Muscle/tendons: There is increased T2 signal/edema, posterior to the soleus muscle in the mid calf, deep to the fascial plane. This is nonspecific in nature, could reflect nonspecific edema, inflammatory/infectious process in the appropriate clinical circumstance. There are foci of mild edema in the soleus, medial and lateral gastrocnemius muscles, the anterior compartment muscles, nonspecific. Differential considerations include myositis, strain injury. No measurable tear. There are diffuse fatty signal within the muscles. MR/MR lower leg RT wo con IMPRESSION: Study obtained without intravenous contrast, due to no IV access. 1. Extensive soft tissue swelling and subcutaneous increased T2 signal from edema/cellulitis. No organized fluid collection is seen in the noncontrast imaging. 2. There is increased T2 signal/edema, deep to the fascial plane, posterior to the soleus muscle in the mid calf. Imaging findings are nonspecific. Differential considerations include edema, inflammatory, infectious process in the appropriate clinical circumstance. 3. Diffuse fatty changes within the calf muscle. Foci of edema in the soleus, medial and lateral gastrocnemius muscles, and the anterior compartment muscles. Findings are nonspecific. Differential considerations include myositis, strain injury. Sequela of denervation changes can have this appearance. No measurable tear. 4. Additional findings and details as above. Electronically signed by: Phillip Jovel MD 08/29/2024 09:13 AM EDT RP
== END 2024-08-28 15:56 | disposition home or self-care (01) ==
LOC: HO.MRI 15:55
PROVIDERS: PCP Family Medicine; Visit Provider Family Medicine
DX: R70.0 Elevated erythrocyte sedimentation rate (principal); M25.571 Pain in right ankle and joints of right foot
CPT/HCPCS: 73718

== ENCOUNTER 2024-08-30 16:35 | Outpatient (REF) | payer OTHER, SELFPAY ==
[2024-08-30 17:03] LABS: MANUAL DIFF FLAG NO
[2024-08-30 17:22] LABS: Basophils Absolute Auto 0.1 X10*3/uL (0.0-0.2); Basophils Percent Auto 0.5 % (0-2); Eosinophils Absolute Auto 0.4 X10*3/uL (0.0-0.4); Hematocrit 39.2 % (37.0-47.0); Hemoglobin 12.8 g/dl (12.0-16.0); Imm Gran Abs Auto 0.08 X10*3/uL (0.00-0.03); Imm Gran Pct Auto 0.8 % (0.0-0.4); Immature Retic Fraction 8.3 % (3.0-15.9); Lymphocytes Absolute Auto 1.7 X10*3/uL (1.2-4.9); Lymphocytes Percent Auto 17.2 % (20-40); Mean Corpuscular HGB Conc 32.7 g/dl (31.0-35.0); Mean Corpuscular Hemoglobin 28.5 pg (27.0-33.0); Mean Corpuscular Volume 87.3 fL (80.0-98.0); Mean Platelet Volume 11.9 fL (9.4-12.3); Monocytes Absolute Auto 0.6 X10*3/uL (0.1-1.2); Monocytes Percent Auto 6.7 % (2-11); Neutrophils Absolute Auto 6.8 x10*3/uL (2.0-8.3); Neutrophils Percent Auto 70.8 % (45-73); Platelet Count 248 X10*3/uL (160-400); Red Blood Count 4.49 X10*6/uL (4.20-5.50); Red Cell Distribution Width 13.5 % (11.0-16.0); Retic HGB Equivalent 31.7 pg (30.0-35.0); Reticulocyte Percent 2.1 % (0.5-1.8); Reticulocytes Absolute 0.095 X10*6/uL (0.026-0.095); White Blood Count 9.6 X10*3/uL (4.8-10.8)
[2024-08-30 17:50] LABS: Anion Gap 15 (12-20); Blood Urea Nitrogen 16 mg/dL (9-16); C Reactive Protein 1.83 mg/dL (< or = 0.50); Calcium 10.3 mg/dL (8.4-10.2); Carbon Dioxide 25 mmol/L (22-29); Chloride 104 mmol/L (96-108); Estimated Glomerular Filt Rate > 60; Glucose Random 93 mg/dL (60-115); Iron 38 mcg/dL (30-160); Magnesium 2.3 mg/dL (1.6-2.6); Percent Iron Saturation 18 % (15-50); Potassium 3.6 mmol/L (3.3-5.1); Sodium 140 mmol/L (135-145); Total Iron Binding Capacity 206 mcg/dL (228-428); Unsaturated Iron Binding 168 ug/dL
[2024-08-30 18:04] LABS: Ferritin 283 ng/mL (10-250)
[2024-08-30 18:10] LABS: Vitamin B12 418 pg/mL (200-900)
[2024-08-30 18:44] LABS: Erythrocyte Sedimentation Rate 56 MM/HR (0-20)
== END 2024-08-30 16:36 | disposition home or self-care (01) ==
LOC: HO.LAB 16:35
PROVIDERS: PCP Family Medicine; Visit Provider Family Medicine
DX: D64.9 Anemia, unspecified (principal); E87.6 Hypokalemia; M25.571 Pain in right ankle and joints of right foot
CPT/HCPCS: 36415; 80048; 82607; 82728; 83540; 83735; 85025; 85045; 85652; 86140

== ENCOUNTER 2024-09-14 15:30 | Outpatient (AMB) | payer OTHER, SELFPAY ==
[2024-09-14 16:10] VITALS: BP 119/79; PULSE 84; TEMP 37.1; O2SAT 97
--- NOTE | 2024-09-14 16:10 | A.OFFVIS_ITS ---
Vital Signs 3 09/14/24 16:10 BP 119/79 Blood Pressure Location Lt brachial Position Sitting Pulse 84 Pulse Source Pulse Oximeter Temp 98.8 F Temp Source Oral Pulse Oximetry (%) 97 Oxygen Delivery Method Room Air Intake Visit Reasons: HHC reff RLL cellulitis Allergies budesonide [From SYMBICORT] Allergy (Intermediate, Verified 09/14/24 16:12) TREMOR formoterol [From SYMBICORT] Allergy (Intermediate, Verified 09/14/24 16:12) TREMOR sulfamethoxazole [From BACTRIM] Allergy (Intermediate, Verified 09/14/24 16:12) RASH trimethoprim [From BACTRIM] Allergy (Intermediate, Verified 09/14/24 16:12) RASH Sulfa (Sulfonamide Antibiotics) Allergy (Unknown, Verified 09/14/24 16:12) Unknown Symbicort Allergy (Unknown, Uncoded 07/18/24 20:11) Unknown HPI HPI HHC reff RLL cellulitis: Details: with sister Ciarra today She has RLE cellultis concerns Area looks chronically discolored also There is no fever or chills. [facility] Medical History Wheelchair dependence Edema of both lower extremities Hx of cerebral palsy GERD (gastroesophageal reflux disease) Asthma Alopecia Surgical History History of surgery Hx of appendectomy History of esophagogastroduodenoscopy (EGD) Hx of colonoscopy Hx of lithotripsy Social History Household Members: Family Housing: House Alcohol intake: never Patient Tobacco Use Status: Never used Tobacco service: No Current occupational status: disabled Review of Systems Const All systems reviewed & are unremarkable except as noted in HPI and below Physical Exam Vital Signs: Last Vital Signs Temp 98.8 F 09/14/24 16:10 Pulse 84 09/14/24 16:10 BP 119/79 09/14/24 16:10 Pulse Ox 97 09/14/24 16:10 Oxygen Delivery Method Room Air 09/14/24 16:10 Const General: cooperative Orientation/consciousness: patient oriented x3 HEENT Head: Yes normal to inspection Mouth: Normal oral and palatal mucosa present Eyes General: appearance normal, both eyes and all related structures Pupils: Equal, round and reactive pupils present Resp Effort & Inspection: normal respiratory effort Cardio Rate: regular rate Rhythm: regular rhythm GI Palpation (GI): Soft to palpation and nontender General: Yes no CVA tenderness Back/Spine/Pelvis Back: no CVA tenderness Skin General skin exam: no rashes or lesions noted Neuro General: patient oriented x3 Cranial nerves: Yes CN's II-XII intact bilaterally and Yes Equal, round and reactive pupils present Extrem Other: reddened RLE Psych Appearance: grossly normal Assessment & Plan Assessment & Plan (1) Cellulitis of right leg: Code(s): L03.115 - Cellulitis of right lower limb Category: Medical Plan Would see Top Lift Nailer Possible myositis/autoimmune No good response to antibiotics. Coding Level of Care Code Est Pt Level 3 (13379) Diagnoses Cellulitis of right leg L03.115
== END 2024-09-14 17:14 | disposition home or self-care (01) ==
LOC: HO.HID 15:30
PROVIDERS: PCP Family Medicine; Visit Provider Internal Medicine
DX: L03.115 Cellulitis of right lower limb (principal)
CPT/HCPCS: 99213

== ENCOUNTER → 2024-09-14 15:30 | Outpatient (BNVA) | payer OTHER, SELFPAY | PROVIDERS: PCP Family Medicine; Visit Provider Internal Medicine | DX: L03.115 Cellulitis of right lower limb (principal) | CPT/HCPCS: 99212 ==

== ENCOUNTER 2024-09-16 14:22 | Outpatient (REF) | payer OTHER, SELFPAY | END 2024-09-16 14:23 | disposition home or self-care (01) | LOC: HO.CT 14:22 | PROVIDERS: PCP Family Medicine; Visit Provider Otolaryngology | DX: J33.0 Polyp of nasal cavity (principal) | CPT/HCPCS: 70486 ==

== ENCOUNTER → 2024-09-16 14:34 | Outpatient (BNV) | payer OTHER, SELFPAY | PROVIDERS: PCP Family Medicine; Visit Provider Radiology Diagnostic Radiology | DX: J33.0 Polyp of nasal cavity (principal) | CPT/HCPCS: 70486 ==

== ENCOUNTER 2025-02-16 15:06 | Outpatient (AMB) | payer OTHER, SELFPAY ==
[2025-02-16 15:08] VITALS: BP 126/80; PULSE 80; O2SAT 99
--- NOTE | 2025-02-16 15:08 | A.OFFVIS_ITS ---
Vital Signs 02/16/25 15:08 Weight 175 lb BP 126/80 Blood Pressure Location Lt brachial Position Sitting Pulse 80 Pulse Source Doppler Pulse Oximetry (%) 99 Oxygen Delivery Method Room Air Comment Verbal weight- patient wheelchair bound Intake Visit Reasons: Asthma/FARTUN Allergies budesonide [From SYMBICORT] Allergy (Intermediate, Verified 02/16/25 15:15) TREMOR formoterol [From SYMBICORT] Allergy (Intermediate, Verified 02/16/25 15:15) TREMOR sulfamethoxazole [From BACTRIM] Allergy (Intermediate, Verified 02/16/25 15:15) RASH trimethoprim [From BACTRIM] Allergy (Intermediate, Verified 02/16/25 15:15) RASH Sulfa (Sulfonamide Antibiotics) Allergy (Unknown, Verified 02/16/25 15:15) Unknown Symbicort Allergy (Unknown, Uncoded 07/18/24 20:11) Unknown HPI HPI Asthma/FARTUN: Details: 54-year-old lady, nonsmoker, now seen for asthma, FARTUN, and environmental allergies. Patient has been using Breo and albuterol MDI with good control of her asthma symptoms. She is also on Singulair for the allergic component. She continues on her CPAP with reasonable control of underlying sleep apnea symptoms. However, patient has not been using her diuretic regimen consistently and now presents with worsening lower extremity edema, dyspnea, and elevated blood pressure. [facility] Medical History Wheelchair dependence Edema of both lower extremities Hx of cerebral palsy GERD (gastroesophageal reflux disease) Asthma Alopecia Surgical History History of surgery Hx of appendectomy History of esophagogastroduodenoscopy (EGD) Hx of colonoscopy Hx of lithotripsy Social History Household Members: Family Housing: House Alcohol intake: never Patient Tobacco Use Status: Never used Tobacco service: No Current occupational status: disabled Review of Systems Const Denies daytime sleepiness, Denies excessive sweating, Denies fatigue, Denies fever(s), Denies lethargy, Denies malaise, Denies night sweats, Denies snoring and Denies weight loss Eyes Denies blurry vision and Denies itchy eyes ENT Denies nasal congestion, Denies post nasal drip, Denies sinus pain, Denies sinus pressure and Denies other ( Thrush) Card Denies chest pain, Reports pedal edema, Denies dyspnea, Reports orthopnea and Denies paroxysmal nocturnal dyspnea Resp Denies cough, Denies hemoptysis, Denies excessive phlegm production, Denies dyspnea, Denies snoring and Denies wheezing GI Denies abdominal pain and Denies heartburn Musc Denies myalgias, Denies arthralgias and Denies joint swelling Skin/Breast Denies rash Neuro Denies memory loss and Denies seizure-like activity Psych Denies abnormal sleep pattern, Denies anxiety and Denies memory loss Endo Denies excessive sweating, Denies fatigue and Denies heat intolerance Craig/Lymph Denies easy bruising Aller/Immun Denies itchy eyes, Denies seasonal rhinorrhea and Denies wheezing Physical Exam Vital Signs: Last Vital Signs Pulse 80 02/16/25 15:08 BP 126/80 02/16/25 15:08 Pulse Ox 99 02/16/25 15:08 Oxygen Delivery Method Room Air 02/16/25 15:08 Const General: no acute distress and alert Nutritional Appearance: not obese Orientation/consciousness: Other orientation findings ( oriented) HEENT Head: Yes atraumatic Eyes General: appearance normal, both eyes and all related structures Sclerae: sclerae normal EOM: EOMs intact bilaterally Neck Neck: Yes supple Lymphatic: no lymphadenopathy noted Resp Effort & Inspection: normal respiratory effort and no use of accessory muscles Auscultation: clear to auscultation bilaterally Cardio Rate: regular rate Rhythm: regular rhythm Heart sounds: no gallops, no murmurs and no rubs Skin General skin exam: other ( warm) Extrem General: No clubbing, No cyanosis and Yes edema (2+ bilateral) Assessment & Plan Assessment & Plan (1) Asthma: Code(s): J45.909 - Unspecified asthma, uncomplicated Category: Medical Plan: Well controlled on Breo, Singulair, and albuterol MDI. (2) FARTUN (obstructive sleep apnea): Comment: Moderately severe FARTUN. The total AHI was 24 with oxygen sukh was 72%. Code(s): G47.33 - Obstructive sleep apnea (adult) (pediatric) Category: Medical Plan: Well controlled on CPAP therapy. Continue CPAP therapy. (3) Orthopnea: Code(s): R06.01 - Orthopnea Category: Medical Plan: Worsening orthopnea and lower extremity edema secondary to poor compliance with diuretic regimen. Patient has been advised to be more compliant with her current regimen furosemide 40 mg daily. (4) Environmental allergies: Code(s): Z91.09 - Other allergy status, other than to drugs and biological substances Category: Medical Plan: Well controlled on Singulair, nasal ipratropium, and Flonase. Continue current regimen. Coding Level of Care Code Est Pt Level 4 (57921) Complex EM visit Add On G2211 Diagnoses Asthma J45.909 FARTUN (obstructive sleep apnea) G47.33 Orthopnea R06.01 Environmental allergies Z91.09
== END 2025-02-16 15:29 | disposition home or self-care (01) ==
LOC: HO.HPS 15:07
PROVIDERS: PCP Family Medicine; Visit Provider Internal Medicine Pulmonary Disease
DX: J45.909 Unspecified asthma, uncomplicated (principal); G47.33 Obstructive sleep apnea (adult) (pediatric); R06.01 Orthopnea; Z91.09 Other allergy status, other than to drugs and biological substances
CPT/HCPCS: 99214; G2211

== ENCOUNTER → 2025-02-16 15:06 | Outpatient (BNVA) | payer OTHER, SELFPAY | PROVIDERS: PCP Family Medicine; Visit Provider Internal Medicine Pulmonary Disease | DX: J45.909 Unspecified asthma, uncomplicated (principal); G47.33 Obstructive sleep apnea (adult) (pediatric); R06.01 Orthopnea; Z91.09 Other allergy status, other than to drugs and biological substances | CPT/HCPCS: 99212 ==

== ENCOUNTER 2025-03-14 14:06 | Outpatient (AMB) | payer OTHER, SELFPAY ==
--- NOTE | 2025-03-14 14:08 | A.OFFVIS_ITS ---
Vital Signs 03/14/25 14:09 Height 5 ft 3 in BP 110/72 Blood Pressure Location Lt brachial Position Sitting Pulse 85 Pulse Source Pulse Oximeter Pulse Oximetry (%) 97 Oxygen Delivery Method Room Air Intake Visit Reasons: 1 yr f/u appt Intake Note: Patient presents 1 year follow up FARTUN. Compliance in chart. Allergies budesonide [From SYMBICORT] Allergy (Intermediate, Verified 03/14/25 14:11) TREMOR formoterol [From SYMBICORT] Allergy (Intermediate, Verified 03/14/25 14:11) TREMOR sulfamethoxazole [From BACTRIM] Allergy (Intermediate, Verified 03/14/25 14:11) RASH trimethoprim [From BACTRIM] Allergy (Intermediate, Verified 03/14/25 14:11) RASH Sulfa (Sulfonamide Antibiotics) Allergy (Unknown, Verified 03/14/25 14:11) Unknown Symbicort Allergy (Unknown, Uncoded 07/18/24 20:11) Unknown HPI Comments Details: 54 y/o female patient presents for follow up FARTUN on CPAP. Pt is accompanied by her sister, Ciarra. Pt was last seen a year ago by our former colleague Rosa Macias NP. Pt denies any significant interval changes. However, pt also reports that her period started 3 days ago. Initially, had some right lower abdominal discomfort, now the discomfort is lower mid-abdomen. Denies dysuria, fevers, N/V/D, change in appetite. Initially pt/sister felt that maybe it was a kidney stone- but the bleeding is much more like a menstrual cycle. She has not had her menstrual cycle since her mid-30s. She is f[place]b [facility] [place]. She has not seen her women's health provider in years- was told she did not need to f/u anymore. Overall, patient reports she is doing well with CPAP therapy. However, a month ago, she had a couple of episodes of feeling like she was choking while wearing CPAP- but this can occur with or without the CPAP. She does have difficulty laying flat d/t SOB. This is better now since patient has been trying to take her furosemide more regularly. Tries to sleep with HOB elevated. Is waiting for a hospital bed. She is followed by pulmonology. Sister notes that when patient was a child, she had laterocollis, which resolved with time. However, more recently she notices patient has had tends to drop forward. Patient endorses posterior cervical and upper trap tightness. Patient does also note tightness, rigidity, decreased range of motion, especially in the RUE. She is wheelchair dependent. In Dec- she had episodes of ringing tinnitus and dizziness. Had ENT consult w/ Dr Aly- and exam was reassuring. She has periodic brief (seconds) dizziness (sometimes spinning but hard for her to say) aggravated by laying down. She does also have episodes of migraine attack, she states she has not needed to try her sumatriptan. Amitriptyline is effective for migraine prevention. The CPAP compliance and therapy response reviewed with patient: CPAP compliance 11/28/2024-02/25/2025 Overall usage 99% Usage greater than 4 hours 99% Average usage on days used 6 hours and 26 minutes CPAP 8 cm H2O with EPR 3 Average leaks 0.1 L/min Residual AHI 1.3 per hour 09/17/2021 home sleep study result revealed moderately severe FARTUN with nocturnal hypoxemia: * AHI 24/hr * O2 sukh 72% with SpO2 below 88% times 27 minutes of study time * Average SpO2 91% * Snoring for 46 % of sleep time. 03/30/2022, in-lab PAP titration study done, and her breathing and oxygenation stabilized at 4-8cmH2O. [facility] Medical History Wheelchair dependence Edema of both lower extremities Hx of cerebral palsy GERD (gastroesophageal reflux disease) Asthma Alopecia Surgical History History of surgery Hx of appendectomy History of esophagogastroduodenoscopy (EGD) Hx of colonoscopy Hx of lithotripsy Social History Household Members: Family Housing: House Alcohol intake: never Patient Tobacco Use Status: Never used Tobacco service: No Current occupational status: disabled Physical Exam Vital Signs: Last Vital Signs Pulse 85 03/14/25 14:09 BP 110/72 03/14/25 14:09 Pulse Ox 97 03/14/25 14:09 Oxygen Delivery Method Room Air 03/14/25 14:09 Const General: no acute distress Resp Effort & Inspection: normal respiratory effort and able to speak in complete sentences Neuro Other: Alert and oriented Forward head and shoulder posture Bilateral posterior cervical tightness tenderness RUE rigidity and hand contracture Sitting upright in wheelchair. Psych Mental Status: mental status grossly normal Speech and movement: Clear speech present Attitude: cooperative Assessment & Plan Assessment & Plan (1) FARTUN (obstructive sleep apnea): Comment: Moderately severe FARTUN. The total AHI was 24 with oxygen sukh was 72%. Code(s): G47.33 - Obstructive sleep apnea (adult) (pediatric) Category: Medical (2) Orthopnea: Code(s): R06.01 - Orthopnea Category: Medical (3) Hx of cerebral palsy: Code(s): Z86.69 - Personal history of other diseases of the nervous system and sense organs Category: Medical (4) Cervicalgia: Code(s): M54.2 - Cervicalgia Category: Medical (5) Rigidity: Code(s): R29.898 - Other symptoms and signs involving the musculoskeletal system Category: Medical Plan For FARTUN: Continue CPAP 8 cmH2O w/ EPR 3 nightly > 4 hours, as pt continues to have good clinical effect from use. Continue to sleep with head of bed elevated, patient may benefit from using a wedge type positioning device, though would likely benefit best from a adjustable hospital bed. Encouraged patient to be compliant with her furosemide therapy. It is possible that patient's postural changes and tendency for anterocollis, may be exacerbating patient has orthopnea symptoms. Follow-up with pulmonology as scheduled. Clean CPAP machine and supplies routinely. Change CPAP supplies routinely. Use distilled water in CPAP water reservoir. Pt to contact us or respiratory company with any questions or concerns. For CP with chronic RUE rigidity, tightness, hand contracture, as well as postural changes: We will request physiatry consult. Pt to follow-up in 6 months or sooner prn. Orders: Referrals Physiatry Referral M54.2 - Cervicalgia, R29.898 - Other symptoms and signs involving the musculoskeletal system, Z86.69 - Personal history of other diseases of the nervous system and sense organs Coding Level of Care Code Est Pt Level 4 (87033) Diagnoses FARTUN (obstructive sleep apnea) G47.33 Orthopnea R06.01 Hx of cerebral palsy Z86.69 Cervicalgia M54.2 Rigidity R29.898
[2025-03-14 14:09] VITALS: BP 110/72; PULSE 85; O2SAT 97
--- OUTSIDE RECORDS SUMMARY | 2025-03-14 16:58 | XMS_ITS | Encounter Summary ---
Author Organization [employer] Address [address] [place] [address] Care Team Providers Care Talkback Host Name Role Phone Marisabel Michel MD Primary Care Provider [phone] Reason for Referral * Imaging (Urgent) - Closed Specialty Diagnoses / Procedures Referred By Contac t Referred To Contact Radiology Diagnoses Acute pain of right knee Procedures MR Knee w/o Contrast Right Marisabel Michel MD [address] [place] [address] Phone: tel: fax: [facility] [address] [place] [address] Phone: tel: fax: Referral ID Status Reason Start Date Expiration Date Visits Re quested Visits Authorized [id number] Closed 05/18/2024 05/18/2025 1 1 Encounter Details Date Type Department Care Team (Late st Contact Info) Description 05/18/2024 Orders Only [facility] MED[facility]INE [address] [place], [place] [phone] Marisabel Michel MD [address] [place], [place] [phone] Acute pain of right knee (Primary Dx); Primary hypertension Social History Tobacco Use Types Packs/Day Years Used Date Smoking Tobacco: Never Passive Smoke Exposure: Never Smokeless Tobacco: Never Depression Answer Date Recorded Patient Health Questionnaire-9 Score 0 03/29/2024 Patient Health Questionnaire-9 Score 0 03/29/2024 Last PHQ-9: Questionnaire Data Not on file 0 03/29/2024 Housing Stability Answer Date Recorded What is your housing situation today? I have diane reinoso 03/29/[address] you li ve. Do you have problems with any of the following? None of the above 03/29/2024 Food Insecurity Answer Date Recorded Within the past 12 months, y ou worried that your food would run out before you got money to buy more: Never True 03/29/2024 Within the past 12 months,th e food you bought just didn't last and you didn't have enough money to get more: Never True 05/2024 Transportation Answer Date Recorded In the past 12 months, has l ack of transportation kept you from medical appts, meetings, work or from getting things needed for daily living? No 03/29/2024 Utilities Answer Date Recorded In the past 12 months, has t he electric, gas, oil or water company threatened to shut off services in your home? No 03/29/2024 Depression Answer Date Recorded Patient Health Questionnaire-2 Score 0 03/29/2024 Comments Unknown Sex and Gender Information Value Date Recorded Sex Assigned at Female 09/22/2022 10:16 AM EDT Legal Sex Female 10:16 AM EDT Gender Identity Female 09/22/2022 10:16 AM EDT Sexual Orientation Straight 09/22/2022 10 :16 AM EDT documented as of this encounter Plan of Treatment Not on file documented as of this encounter Procedures Procedure Name Priority Date/Time Associated Diagnosis Comments MR KNEE WO CONTRAST RIGHT Urgent 05/25/2024 3:33 PM EDT Acute pain of right knee documented in this encounter Results * MR Knee w/o Contrast Right (05/25/2024 3:33 PM EDT) Anatomical Region Laterality Modality Magnetic Resonan ce 05/25/2024 3:33 PM EDT Narrative 05/25/2024 4:16 PM EDT ? [facility] ?[address] ?[place] [address] ? Magnetic Resonance Report ? Signed ? Patient: Vera Vera,Radha ?MR#: ?? [id number] ? : 1970 ?Acct:[id number] ? Age/Sex: 53 / F ?ADM Date: 05/25/24 ? Loc: HO.MRI ? Attending Dr: Marisabel Michel MD ? Ordering Physician: Marisabel Michel MD ?? Date of Service: 05/25/24 ?? Procedure(s): MR knee RT wo con ?? Accession Number(s): [id number] ? cc: Marisabel Michel MD ? EXAMINATION: ?? MR KNEE WITHOUT CONTRAST, RIGHT ? CLINICAL INFORMATION: ?? Right knee pain and limited mobility ? COMPARISON: ?? Radiographs 05/10/2024 ? TECHNIQUE: ?? MRI of the knee without contrast was performed using routine sequences ?? on a high-field scanner. ? FINDINGS: ? MENISCI: ? Medial Meniscus: Intact ?? Lateral Meniscus: Intact ? LIGAMENTS: ? Cruciate: Intact ?? Collateral: Intact ? EXTENSOR MECHANISM: Intact. Marked patella glynn. ? ARTICULAR CARTILAGE/BONE: ? Patellofemoral Compartment: Full-thickness cartilage loss with surface ?? remodeling including flattening and areas of concavity along the ?? lateral and to a lesser extent medial trochlea. Underlying marrow ?? edema. This may be chronic or possibly represent recent impaction ?? fractures noting the underlying marrow edema. ? Medial Compartment: Diffuse cartilage thinning without a focal defect. ? Lateral Compartment: Cartilage thinning, full-thickness at the ?? posterior aspect of the tibia, and small marginal osteophytes. ? JOINT FLUID AND BURSAE: No significant joint effusion. Marrow edema at ?? the posteromedial aspect of the fibular head is most likely ?? degenerative. ? Diffuse muscle fatty atrophy. ? MR/MR knee RT wo con ?? IMPRESSION: ?? 1. ??No definite meniscal tear. ?? 2. ??Marked patella glynn. Surface flattening and areas of mild concavity ?? of the lateral trochlea and medial trochlea with prominent underlying ?? marrow edema. These could represent impaction fractures if there has ?? been a recent fall onto the knee. Alternatively, this may be chronic ?? and degenerative. No significant joint effusion. ?? 3. ??Mild medial/lateral compartment osteoarthritis. ?? 4. ??Diffuse muscle fatty atrophy. ? Dictated By: ?Isiah Suazo MD ? Signed By: ?<Electronically signed by Isiah Suazo MD in OV> ? 05/25/24 1613 ? DD/ 1533 ? TD/TT: ? Marsh Buggy Operator: DM ? Procedure Note Donotuseinterpreter, Image - 05/25/[address] [address] Magnetic Resonance Report Signed Patient: Radha KimballMR#: [id number] : 1970Acct:[id number] Age/Sex: 53 / FADM Date: 05/25/24 Loc: HO.MRI Attending Dr: Marisabel Michel MD Ordering Physician: Marisabel Michel MD Date of Service: 05/25/24 Procedure(s): MR knee RT wo con Accession Number(s): [id number] cc: Marisabel Michel MD EXAMINATION: MR KNEE WITHOUT CONTRAST, RIGHT CLINICAL INFORMATION: Right knee pain and limited mobility COMPARISON: Radiographs 05/10/2024 TECHNIQUE: MRI of the knee without contrast was performed using routine sequences on a high-field scanner. FINDINGS: MENISCI: Medial Meniscus: Intact Lateral Meniscus: Intact LIGAMENTS: Cruciate: Intact Collateral: Intact EXTENSOR MECHANISM: Intact. Marked patella glynn. ARTICULAR CARTILAGE/BONE: Patellofemoral Compartment: Full-thickness cartilage loss with surface remodeling including flattening and areas of concavity along the lateral and to a lesser extent medial trochlea. Underlying marrow edema. This may be chronic or possibly represent recent impaction fractures noting the underlying marrow edema. Medial Compartment: Diffuse cartilage thinning without a focal defect. Lateral Compartment: Cartilage thinning, full-thickness at the posterior aspect of the tibia, and small marginal osteophytes. JOINT FLUID AND BURSAE: No significant joint effusion. Marrow edema at the posteromedial aspect of the fibular head is most likely degenerative. Diffuse muscle fatty atrophy. MR/MR knee RT wo con IMPRESSION: 1. No definite meniscal tear. 2. Marked patella glynn. Surface flattening and areas of mild concavity of the lateral trochlea and medial trochlea with prominent underlying marrow edema. These could represent impaction fractures if there has been a recent fall onto the knee. Alternatively, this may be chronic and degenerative. No significant joint effusion. 3. Mild medial/lateral compartment osteoarthritis. 4. Diffuse muscle fatty atrophy. Dictated By: Isiah Suazo MD Signed By: <Electronically signed by Isiah Suazo MD inOV> 05/25/24 1613 DD/ 1533 TD/TT: Marsh Buggy Operator: DM Marisabel Michel MD IMG MRI PROCEDURES Final Result documented in this encounter Visit Diagnoses Diagnosis Acute pain of right knee- Primary Primary hypertension Unspecified essential hypertension documented in this encounter Additional Health Concerns Assessment Noted Time PHQ-9 Depression Total Score: 0 03/29/20 24 3:23 PM EDT documented as of this encounter Care Teams Talkback Host Relationship Specialty Start Date End Date Marisabel Michel MD [address] [place] [address] PCP - General Family Medicine 09/04/11 documented as of this encounter
--- OUTSIDE RECORDS SUMMARY | 2025-03-14 16:58 | XMS_ITS | Encounter Summary ---
Author Organization [employer] Address [address] [place] [address] Care Team Providers Care Facing End Trimmer Name Role Phone Marisabel Michel MD Primary Care Provider [phone] Reason for Referral * Consultation (Routine) - Authorized Specialty Diagnoses / Procedures Referred By Contac t Referred To Contact Pharmacy Diagnoses Moderate persistent asthma without complication Prediabetes Primary hypertension Polypharmacy Marisabel Michel MD [address] [place] [address] Phone: tel: fax: Referral ID Status Reason Start Date Expiration Date Visits Requested Visits Authorized [id number] Authorized Continuity of Care 09/09/2024 09/09/2025 6 6 Encounter Details Date Type Department Care Team ([facility] st Contact Info) Description 09/09/2024 Orders Only [facility] MED[facility]INE [address] [place] [phone] Marisabel Michel MD [address] [place] [phone] Moderate persistent asthma without complication (Primary Dx); Prediabetes; Primary hypertension; Polypharmacy Social History Tobacco Use Types Packs/Day Years [...] as of this encounter Plan of Treatment Scheduled Referrals Name Type Priority Associated Diagnoses Orde r Schedule Referral to Pharmacy MTM Outpatient Referral Routine Moderate persistent asthma without complication Prediabetes Primary hypertension Polypharmacy Ordered: 09/09/2024 documented as of this encounter Visit Diagnoses Diagnosis Moderate persistent asthma without complication- Primary Prediabetes Other abnormal glucose Primary hypertension Unspecified essential hypertension Polypharmacy Issue of repeat prescriptions documented in this encounter Additional Health Concerns Assessment Noted Time PHQ-9 Depression Total Score: 0 03/29/20 24 3:23 PM EDT documented as of this encounter Care Teams Facing End Trimmer Relationship Specialty Start Date End Date Marisabel Michel MD [address] [place] [address] PCP - General Family Medicine 09/04/11 documented as of this encounter
--- OUTSIDE RECORDS SUMMARY | 2025-03-14 16:58 | XMS_ITS | Patient Health Record ---
Author Organization [facility] Address [address] [place] [address] Care Team Providers Care Deicer Finisher Name Role Phone Anand DIOR, Marisabel Primary Care Provider Goerge Hyman Unavailable [phone] Reason For Referral No Information Medications Medication SIG (Take, Route, Frequency, Duration) Notes Start Date End Date Status hydrOXYzine HCl 10 MG Orally Active Dulcolax (colon prep) 5 MG take at 3:00 p.m and 7:00p.m. Orally two tablets twice a day for one day for 1 day 05/05/2021 Active Pulmicort 1 MG/2ML 4 ml Inhalation ever y two days Active Singulair 10 MG 1 tablet in the evening Orally Once a day Active Saline 0.65 % 2 drops in each nostril as needed Nasally every 2 hrs Active MiraLax (colon prep) 8.3 ounce ((238) grams mixed with Gatorade or Crystal Light orally begin at 5:00 p.m. the day before the procedure for 1 day 05/05/2021 Active Clotrimazole 10 MG 1 tablet at bedtime Mouth/Throat prn Active DuoNeb 0.5-2.5 (3) MG/3ML 3 ml Inhalation every 6 hrs PRN Active Terbinafine HCl 1 % 1 application to affected area Externally Twice a day Active ZyrTEC 10 MG 1 tablet Orally Once a day Active Nystatin 697164 UNIT/ML 4 ml Mouth/Throa t Twice a day PRN Active Colace 100 MG 1 capsule as needed Orally BID Active Cephalexin 500 MG 1 capsule Orally prn Active levoFLOXacin 250 MG Orally PRN Active Flonase 50 MCG/ACT 1 spray in each nostril Nasally Once a day Active Fioricet 50mg/325 mg 1 po qd if no relie f from excederin for headaches Not-Taking SUMAtriptan Succinate 50 MG 1 tablet as needed one time Orally Once a day Active Codeine Phosphate 10mg/100mg/5 ml oral liquid 10 milliliter by oral route q4h prn Not-Taking Flovent Diskus 220 mcg 1 puff twice daily Active [employer] Gas Relief Activ e Ketoconazole 2 % Externally prn Active Ibuprofen 600 MG 1 tablet Orally Thre e times a day prn Not daily Not-Taking Omeprazole 20 MG 1 capsule Orally BID--in AM and PM before a meal for 30 day(s) Active Calcium 600 + D 600-200 MG-UNIT Orally Active Bismuth 262 MG 2 tablets as needed Orally 8 time(s) a day Active Ondansetron HCl 4 MG 2 tablets Orally On ce a day Active ProAir HFA 108 (90 Base) MCG/ACT 2 puffs as needed Inhalation every 4 hrs/prn Active Naproxen 500 MG 1 tablet Orally QD Active Immunizations Vaccine Route Administration Date Status Comme nts Flu vaccine no Preserv 3 and > Unknown 09/06/2014 Admin istered Problems Problem Type SNOMED Code ICD Code Onset Dates Problem Status W/U Status Risk Notes Problem Esophageal reflux (483628099) Esophageal reflux (K21.9) Active confirmed Problem 878687294 Encounter for screening for malignant neoplasm of colon (Z12.11) Active confirmed Problem 928508858 Gastroesophageal reflux disease, esophagitis presence not specified (K21.9) Active confirmed Problem 171341440 Family history o f colon cancer (Z80.0) Active confirmed Problem Benign neoplasm of stomach (28471804) Gastric polyps (K31.7) Active confirmed Problem 13751951 Oropharyngeal dysphagia (R13.12) Active confirmed Problem 996981682 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 Problem Diverticulosis of sigmoid colon (426692129) Diverticulosis of sigmoid colon (K57.30) Active confirmed Plan Of Treatment Pending Test Test Name Order Date XR BARIUM SWALLOW, MODIFIED VIDEO 2014 Future Test Test Name Order Date COLONOSCOPY 09/14/2015 UPPER GI ENDOSCOPY 10/28/2017 UPPER GI ENDOSCOPY 05/01/2021 COLONOSCOPY 05/01/2021 Insurance Providers Payer Name Payer Address Payer Phone Subscriber Number Group Number Insured Name Patient Relationship to Insured Coverage Start Date Coverage End Date [facility] [address] [place] [address] [id number] CARL JACK Self - patient is the insured MED[place] OF [employer] [address] [place] [phone] [id number] CARL JACK Self - patient is the insured Medical (General) History Medical History History ICD Code Alopecia Positive H.pylori serology in 07/2013-Rx' d with PPI and antibiotics Asthma Denies [place],DM,CVA,renal disease Kidney stones-[facility] Neg colonoscopy in 2004, 07/25, 11/2015--sigmoid diverticulosis and internal hemorrhoids UTI's GERD--EGD in 08/2014--HH, ne g. H.pylori, approx. 10-12mm duodenal adenoma in 2nd portion of the duodenum--only biopsied Upper endoscopy in April with the removal of the duodenal tubular adenoma--- she was evaluated by speech and swallowing at the hospital with a barium swallow and was found to have some near-aspiration, and was subsequently followed at the speech clinic for her swallowing issues. Cerebral palsy LE edema--seeing a vascular surgeon and using diuretics EGD 01/3018-small duodenal ad enoma removed from the 2nd portion of the duodenum, normal duodenal biopsies, benign proximal gastric polyps, moderate-sized hiatal hernia Surgical History Surgery Date(Month/Year) appendectomy orthopedic surgeries--leg hand surgery
--- OUTSIDE RECORDS SUMMARY | 2025-03-14 16:58 | XMS_ITS | Encounter Summary ---
Author Organization [employer] Address [address] [facility] 7t [place] [address] Care Team Providers Care Camp Assistant Name Role Phone Marisabel Michel MD Primary Care Provider [phone] Reason for Referral * Consultation (Routine) - Closed Specialty Diagnoses / Procedures Referred By Contcarlos t Referred To Contact Diagnoses Sinusitis, unspecified chronicity, unspecified location Marisabel Michel MD [address] [place] [address] Phone: tel: fax: Jamshid Aly [address] [place] [address] Drive [address] [place], [place] [address] Phone: tel: fax: Referral ID Status Reason Start Date Expiration Date V isits Requested Visits Authorized [id number] Closed Specialty Services Required 04/22/2024 04/22/2025 1 1 Encounter Details Date Type Department Care Team (Late st Contact Info) Description 04/22/2024 Orders Only [facility] [address] [place], [place] [phone] Marisabel Michel MD [address] [place], [place] [phone] Sinusitis, unspecified chronicity, unspecified location (Primary Dx) Social History Tobacco Use Types Packs/Day Years [...] Associated Diagnoses Orde r Schedule Referral to ENT Outpatient Referral Routine Sinusitis, unspecified chronicity, unspecified location Expected: 04/22/2024 (Approximate), Expires: 04/22/2025 documented as of this encounter Procedures Procedure Name Priority Date/Time Associated Diagnosis Comments US VENOUS DUPLEX LE RT Routine 05/10/2024 4:48 PM EDT documented in this encounter Results * US VENOUS DUPLEX LE RT (05/10/2024 4:48 PM EDT) Anatomical Region Laterality Modality Abdomen Ultrasound 05/10/2024 4:48 PM EDT Narrative 05/10/2024 5:32 PM EDT ? [facility] ?[address] ?[place] [address] ? Ultrasound Report ? Signed ? Patient: Vera Vera,Radha ?MR#: ?? [id number] ? : 1970 ?Acct:[id number] ? Age/Sex: 53 / F ?ADM Date: 05/10/24 ? Loc: HO.XRAY ? Attending Dr: Marisabel Michel MD ? Ordering Physician: Marisabel Michel MD ?? Date of Service: 05/10/24 ?? Procedure(s): US venous duplex LE RT ?? Accession Number(s): [id number] ? cc: Marisabel Michel MD ? EXAMINATION: ? US VENOUS ULTRASOUND WITH DOPPLER LOWER EXTREMITY, RIGHT ? CLINICAL INFORMATION: ? Right leg pain. ? COMPARISON: ? Venous duplex Doppler ultrasound exam of February 24, 2018 ? TECHNIQUE: ?? Ultrasound of the deep veins is performed from the hip to the calf with ?? compression sonography and color and pulse Doppler assessment. Spectral ?? analysis with color-flow imaging is performed. ? FINDINGS: ?? Exam limited by body habitus. ?? There is normal venous compression and respiratory variation and ?? augmented flow. The visualized common femoral vein, superficial femoral ?? vein, profunda femoral vein, popliteal vein, and the trifurcation ?? region shows no evidence of deep venous thrombosis. ?? There is no ?? significant popliteal fossa cyst. ? If the patient's symptoms persist, followup ultrasound in 5 days 7 days ?? might be of value to exclude proximal propagation from a non-visualized ?? calf vein. ? US/US venous duplex LE RT ?? IMPRESSION: ?? No DVT demonstrated in the right lower extremity. ? Dictated By: ?Arose,Teo DIOR ? Signed By: ?<Electronically signed by Teo Pratt MD in OV> ?05/10/24 1728 ? DD/ 1648 ? TD/TT: ? Land Resource Specialist: BA ? Procedure Note Sana Lima - 05/10/[address] [address] Ultrasound Report Signed Patient: Shani Kimball#: [id number] : 1970Acct:[id number] Age/Sex: 53 / FADM Date: 05/10/24 Loc: JACQUE Attending Dr: Marisabel Michel MD Ordering Physician: Marisabel Michel MD Date of Service: 05/10/24 Procedure(s): US venous duplex LE RT Accession Number(s): [id number] cc: Marisabel Michel MD EXAMINATION: US VENOUS ULTRASOUND WITH DOPPLER LOWER EXTREMITY, RIGHT CLINICAL INFORMATION: Right leg pain. COMPARISON: Venous duplex Doppler ultrasound exam of February 24, 2018 TECHNIQUE: Ultrasound of the deep veins is performed from the hip to the calf with compression sonography and color and pulse Doppler assessment. Spectral analysis with color-flow imaging is performed. FINDINGS: Exam limited by body habitus. There is normal venous compression and respiratory variation and augmented flow. The visualized common femoral vein, superficial femoral vein, profunda femoral vein, popliteal vein, and the trifurcation region shows no evidence of deep venous thrombosis. There is no significant popliteal fossa cyst. If the patient's symptoms persist, followup ultrasound in 5 days 7 days might be of value to exclude proximal propagation from a non-visualized calf vein. US/US venous duplex LE RT IMPRESSION: No DVT demonstrated in the right lower extremity. Dictated By: Teo Pratt MD Signed By: <Electronically signed by Teo Pratt MD in OV> 05/10/24 1728 DD/ 1648 TD/TT: Land Resource Specialist: JUANITA us Marisabel Michel MD IMG US PROCEDURES Final Result documented in this encounter Visit Diagnoses Diagnosis Sinusitis, unspecified chronicity, unspecified location- Primary documented in this encounter Additional Health Concerns Assessment Noted Time PHQ-9 Depression Total Score: 0 03/29/20 24 3:23 PM EDT documented as of this encounter Care Teams Camp Assistant Relationship Specialty Start Date End Date Marisabel Michel MD [address] [place] [address] PCP - General Family Medicine 09/04/11 documented as of this encounter
--- OUTSIDE RECORDS SUMMARY | 2025-03-14 16:58 | XMS_ITS | Encounter Summary ---
Author Organization [employer] Address [address] [place] [address] Care Team Providers Care Decorator Mannequin Name Role Phone Marisabel iMchel MD Primary Care Provider [phone] Reason for Visit * Reason Comments Med Refill Encounter Details Date Type Department Care Team ([facility] st Contact Info) Description 03/12/2025 Refill [facility]INE [address] [place], [place] [phone] Marisabel Michel MD [address] [place], [place] [phone] Social History Tobacco Use Types Packs/Day Years Used Date Smoking Tobacco: Never Passive Smoke Exposure: Never Smokeless Tobacco: Never Alcohol Answer Date Recorded Frequency of Alcohol Consumption Not on file 09/19/2024 Average Number of Drinks Not on file 024 Frequency of Binge Drinking Not on file 08/24 Score 0 09/19/2024 Depression Answer Date Recorded Patient Health Questionnaire-9 [...] on file documented as of this encounter Visit Diagnoses Not on filedocumented in this encounter Additional Health Concerns Assessment Noted Time PHQ-9 Depression Total Score: 0 03/29/20 24 3:23 PM EDT documented as of this encounter Care Teams Decorator Mannequin Relationship Specialty Start Date End Date Marisabel Michel MD [address] [place] [address] PCP - General Family Medicine 09/04/11 documented as of this encounter
--- OUTSIDE RECORDS SUMMARY | 2025-03-14 16:58 | XMS_ITS | Encounter Summary ---
Author Organization [employer] Address [address] [place] [address] Care Team Providers Care Bioprocess Development Engineer Name Role Phone Marisabel Michel MD Primary Care Provider [phone] Reason for Visit * Reason Comments Med Refill Encounter Details Date Type Department Care Team ([facility] st Contact Info) Description 11/06/2023 Refill [facility] MED[facility]INE [address] [place], [place] [phone] Vicky Sage ANP [address] [place] [address] Social History Tobacco Use Types Packs/Day Years Used Date Smoking Tobacco: Never Passive Smoke Exposure: Never Smokeless Tobacco: Never Depression Answer Date Recorded Patient Health Questionnaire-9 Score 2 02/24/2023 Housing Stability Answer Date Recorded What is your housing situation today? I have diane reinoso 09/09/[address] you li ve. Do you have problems with any of the following? None of the above 09/09/2023 Food Insecurity Answer Date Recorded Within the past 12 months, y ou worried that your food would run out before you got money to buy more: Never True 09/09/2023 Within the past 12 months,th e food you bought just didn't last and you didn't have enough money to get more: Never True Transportation Answer Date Recorded In the past 12 months, has l ack of transportation kept you from medical appts, meetings, work or from getting things needed for daily living? No 09/09/2023 Utilities Answer Date Recorded In the past 12 months, has t he electric, gas, oil or water company threatened to shut off services in your home? No 09/09/2023 Depression Answer Date Recorded Patient Health Questionnaire-2 Score 2 02/24/2023 Comments Unknown Sex and Gender Information Value [...] Assessment Noted Time PHQ-9 Depression Total Score: 2 02/25/20 23 1:12 PM EDT documented as of this encounter Care Teams Bioprocess Development Engineer Relationship Specialty Start Date End Date Marisabel Michel MD [address] [place] [address] PCP - General Family Medicine 09/04/11 documented as of this encounter
--- OUTSIDE RECORDS SUMMARY | 2025-03-14 16:58 | XMS_ITS | Encounter Summary ---
Author Organization [employer] Address [address] [place] [address] Care Team Providers Care Materials Mgmt Tech Name Role Phone Marisabel Michel MD Primary Care Provider [phone] Encounter Details Date Type Department Care Team ([facility] st Contact Info) Description 08/01/2024 Orders Only [facility] [address] [place], [place] [id number] Marisabel Michel MD [address] [place], [place] [phone] Prediabetes (Primary Dx) Social History Tobacco Use Types [...] as of this encounter Visit Diagnoses Diagnosis Prediabetes- Primary Other abnormal glucose documented in this encounter Additional Health Concerns Assessment Noted Time PHQ-9 Depression Total Score: 0 03/29/20 24 3:23 PM EDT documented as of this encounter Care Teams Materials Mgmt Tech Relationship Specialty Start Date End Date Marisabel Michel MD [address] [place] [address] PCP - General Family Medicine 09/04/11 documented as of this encounter
--- OUTSIDE RECORDS SUMMARY | 2025-03-14 16:58 | XMS_ITS ---
Author Organization [facility] Address [address] [place] [address] Care Team Providers Care Dealer Relationship Manager Name Role Phone Marisabel Michel Primary Care Provider Yoni Glover Unavailable [phone] Allergies Allergen (clinical drug ingredient) Drug/Non Drug Allergy documented on EMR Reaction Allergy Type Onset Date Status sulfamethoxazole / trimethoprim Bactrim Unknown Drug Allergy Active budesonide / formoterol Symbicort Unknown Drug Allergy Active REASON FOR VISIT At Risk Footcare, Painful Nail(s) aggravated by shoes and causing difficulty standing/walking, Toe Irritation, Open sore - Toe Medications Medication SIG (Take, Route, Frequency, Duration) Notes Start Date End Date Status Mupirocin 2 % 1 application Externally Twice a day Active Systane Active Vitamin E Active Ammonium Lactate 12 % 1 application Externally Twice a day Active Breo Ellipta 200-25 MCG/INH 1 puff Inhalation Once a day Active Prednisone Not-Takin g Extra Depth Orthopedic Shoes, (1) Pair With (3) Pair Custom Heat Molded Multidensity Innersoles Dx: NIDDM/PVD(E11.51), Hammertoe Foot Deformity(M20.41,M20 .42), Preulcerative Skin Lesion(s)(L85.1) Wear Daily for 365 days 01/30/2025 Active Fluconazole 150 MG 1 tablet Orally Once a day Not-Taking Spiriva Respimat Not -Taking Flovent HFA Not-Taki ng Loratadine Allergy Relief Active Vitamin C 500 MG Orally Act shirin Clotrimazole Active Diclofenac Sodium 1 % USE DIRECTED 2 TIMES A DAY for 50 Active Meloxicam 15 MG 1 tablet Orally Once a day Not-Taking CVS Jock Itch Active Alclometasone Dipropionate Active Gabapentin 100 MG Orally Once a day Active Saline Nasal Weikert as needed A ctive SUMAtriptan Succinate Active Naproxen Active Ondansetron HCl Acti ve PriLOSEC OTC Active ProAir HFA as needed Active Proctofoam as needed Active Ipratropium Dudley Active Jock Itch 1 % 1 application to affected area Externally Twice a day Active Ketotifen Fumarate A ctive Montelukast Sodium A ctive Ipratropium-Albuterol Active Docusate Sodium 100 MG 1 capsule as need ed Orally Once a day Active Fluticasone Furoate Active Gas Relief Active hydrOXYzine HCl Acti ve Ibuprofen Active Calcium 600 + D 600-200 MG-UNIT Orally Active Cetirizine HCl twice a day Act shirin Cetaphil Active Clotrimazole as needed Active Cyproheptadine as needed Activ e Lisinopril 5 MG 1 tablet Orally Once a day for 30 day(s) Active Lasix 40 MG 1 tablet Orally Once a day for 30 days Active CVS Ear Wax Removal System Active Alendronate Sodium 70 MG 1 tablet 30 minutes before the first food, beverage or medicine of the day with plain water Orally for 30 day(s) Active Meclizine HCl 12.5 MG 2 tablets as neede d Orally Once a day for 30 day(s) Active Bismuth Active Social History Tobacco Use: Social History Observation Description Date Details (start date - stop date) Never Smoker NA - NA Tobacco use other than smoking: Question Answer Notes Are you an other tobacco user? No Tobacco Control (Standard) Question Answer Notes Tobacco use: Nonsmoker Additional Findings: Tobacco non-user Current no nsmoker AUDIT-C (Standard) Question Answer Notes Did you have a drink containing alcohol in the p ast year? No Points 0 Interpretation Negative Problems Problem Type SNOMED Code ICD Code Onset Dates Problem Status W/U Status Risk Notes Problem Type 2 diabetes mellitus with peripheral angiopathy (774558456) Type 2 diabetes mellitus with diabetic peripheral angiopathy without gangrene (E11.51) Active confirmed Q7(A), Q8(2B), Q9(1B,2C) Problem Acquired hammer toe of right foot (477296341134 9105) Other hammer toe(s) (acquired), right foot (M20.41) Active confirmed Problem Acquired hammer toe of left foot (877582578538 9103) Other hammer toe(s) (acquired), left foot (M20.42) Active confirmed Problem Ulcer of toe of left foot (disorder) (235146780546 79736) Skin ulcer of toe of left foot, limited to breakdown of skin (L97.521) Active confirmed Response to treatment Nonapplicable Vital Signs Height 5ft in 01/30/2025 Weight 178 lbs 01/30/2025 BMI 34.76 kg/m2 01/30/2025 Blood pressure systolic 127 mm Hg 01/31/20 25 Blood pressure diastolic 76 mm Hg 025 Procedures Procedure Date Ordered Date Performed Result Body Sit e 44887-[id number] NAIL, 6 OR MORE 01/30/2025 N/A 69668- Debride <25 sq cm 01/30/2025 N/A 80863-KDFX SKIN LESIONS, 2 TO 4 01/30/2025 N/A Encounters Encounter Location Date Provider Diagnosis [facility] [address] [place] [id number] 01/30/2025 Yoni Bhatt Type 2 diabetes mellitus with diabetic peripheral angiopathy without gangrene E11.51 ; Tinea unguium B35.1 ; Pain in right toe(s) M79.674 ; Pain in left toe(s) M79.675 ; Other hammer toe(s) (acquired), left foot M20.42 ; Other hammer toe(s) (acquired), right foot M20.41 and Skin ulcer of toe of left foot, limited to breakdown of skin L97.521 Assessments Encounter Date Diagnosis (ICD Code) Assessment Notes Treatment Notes Treatment Clinical Notes Section Notes 01/30/2025 Type 2 diabetes mellitus with diabetic peripheral angiopathy without gangrene (ICD-10 - E11.51) Q7(A), Q8(2B), Q9(1B,2C) 01/30/2025 Tinea unguium (ICD-10 - B35.1) 01/30/2025 Pain in right toe(s) (ICD-10 - M79.674) 01/30/2025 Pain in left toe(s) (ICD-10 - M79.675) 01/30/2025 Other hammer toe(s) (acquired), left foot (ICD-10 - M20.42) 01/30/2025 Other hammer toe(s) (acquired), right foot (ICD-10 - M20.41) Patient Educated with: DIABETIC FOOT CARE INSTRUCTIONS.p df (DIABETIC FOOT CARE INSTRUCTIONS.p df) 01/30/2025 Skin ulcer of toe of left foot, limited to breakdown of skin (ICD-10 - L97.521) Response to treatment Nonapplicable Patient Educated with: WOUND CARE INSTRUCTIONS.p df (WOUND CARE INSTRUCTIONS.p df) 01/30/2025 Other Plan Of Treatment Medication Medication Name Sig Start Date Stop Date Notes Extra Depth Orthopedic Shoes , (1) Pair With (3) Pair Custom Heat Molded Multidensity Innersoles Dx: NIDDM/PVD(E11.51), Hammertoe Foot Deformity(M20.41,M20.42), Preulcerative Skin Lesion(s)(L85.1) Wear Daily for 365 days 01/30/2025 Treatment Notes Assessment Notes Other hammer toe(s) (acquired), right fo ot Patient Educated with: DIABETIC FOOT CARE INSTRUCTIONS.pdf (DIABETIC FOOT CARE INSTRUCTIONS.pdf) Skin ulcer of toe of left fo ot, limited to breakdown of skin Patient Educated with: WOUND CARE INSTRUCTIONS.pdf (WOUND CARE INSTRUCTIONS.pdf) Pending Test Test Name Order Date [id number] NAIL, 6 OR MORE 01/30/2025 54452- Debride <25 sq cm 01/30/2025 82811-PEUB SKIN LESIONS, 2 TO 4 01/31/20 25 Next Appt Details Follow Up: 3 Months,To see Gabino Bustillo, Reason: Provider Name:Yoni Bhatt , 05/08/2025 01:30:00 PM, [address] [facility], [address], [place], [address], Procedure Notes * Category Sub-Category Detail Notes Debride Nail 6-10 Nail debridement Due to the cl inical pathology outlined in the exam findings, performance of this nail treatment is medically necessary as its management by an unskilled/untrained nonprofessional would put this patients foot and overall health at risk. Therefore, debridement to affected nail(s), as described in exam ( TA, T1, T2, T3, T4, T5, T6, T7, T8, T9 ), was performed exclusively by the physician of record to reduce/remove overall nail length, girth, thickness, subungual debris, and necrotic tissue, by manual and/or electrical means through the use of a nail nipper and/or dremel-type microgrinder operator, to a more viable healthy nail plate or bed tissue 6-10 nails in total. Silver nitrate was used for any petechial bleeding as necessary. Definitive antifungal treatment options, both pharmaceutical and surgical, have been reviewed and discussed with the patient. The patient solely prefers the use of intermittent/as needed professional debridement services for their nail condition and understands the need for additional periodic treatments to maintain effectiveness in symptomatic relief - 75287 Debride skin< 25 sq cm Open wound Physician of record performed open wound selective debridement of first 25 sq cm or less, of devitilized necrotic/nonviable soft tissue, fibrin, and exudate extending from the epidermis through the dermis, utilizing sharp dissection with sterile 15 blade, and/or tissue nippers. Sterile antibiotic dressing applied, ANESTHESIA- was accomplished TOPICALLY with Lidocaine Hydrochloride Jelly 2 percent. Hemostasis was achieved through direct pressure. Post debridement measurements: 6mm x 6mm x 2mm. Character of the wound post debridement is stable (89203) Keratoma Treatment Parring or Cutting o f Benign Hyperkeratotic Lesion(s) (-56) 2-4 Lesions - Due to the at risk nature of the patients medical condition as documented in the exam findings, performance of this keratoderma treatment is medically necessary as its management by an unskilled/untrained nonprofessional would put this patients foot and overall health at risk. Therefore, the benign hyperkeratotic lesions, ( 2 ) in total, locations as stated and described in the exam ( Medial, IPJ, TA, Medial, IPJ, T5 ), were pared, and/or cut utilizing a sterile 15 blade, tissue nippers, and/or power dremel instrumentation by the physician of record - 58814, Q8 Progress Notes * Radha JACKDOB: [birth year] (54 yo F)Acc No.[id number]:01/30/2025 Progress Note Patient:?Radha JACK Provider:?Yoni Bhatt DPM :1970???Age:54 Y???Sex:Female D ate:01/30/2025 Address:[address] [place], [place] [id number] Pcp:Marisabel Michel Subjective: * Chief Complaints: * ???At Risk FootcarePainful N ail(s) aggravated by shoes and causing difficulty standing/walkingToe IrritationOpen sore - Toe * HPI: ???At Risk footcare:?Pt States Last PCP Visit:?Date?11/10/2024 ???Toe pain:?Location:?B/L feet.?Duration:?several years.?Course:?worse.?Aggravated by:?shoes, any pressure.?Treatments:?change in shoes.?Skin problems:?Treatments:?none.? * ROS:?General/Constitutional:?Nausea?denies.?Vomiting?denies.?Hunger Thirst?denies.?Loss appetite?denies.?Chills?denies.?Fatigue?denies.?Fever?denies.?Night Sweats?denies.?Unexplained weight loss?denies.?Unexplained weight gain?denies.?HEENTM:?Dentures?denies.?Dizziness?denies.?Glasses/contacts?denies.?Retinopathy?den ies.?Blurred/double vision?denies.?TMJ?denies.?Discharge/drainage?denies.?Implants?denies.?Sore throat?denies.?Dental implants?denies.?Hard of hearing ?denies.?Difficulty chewing/swallowing/speaking?denies.?Nose bleeds?denies.?Sore mouth?denies.?Respiratory:?On O xygen?denies.?Pneumonia/pleurisy?denies.?Bronchitis?denies.?Emphysema?denies.?Co ughing?denies.?Cough blood?denies.?Shortness of breath?denies.?Wheezing?denies.?Cardiovascular:?Pacemaker?denies.?MVP?denies.?WPW?denies.?CHF?denies.?Heart attack?denies.?Septal defect?denies.?Rapid beat?denies.?Chest pain ?denies.?Atrial Fib.?denies.?Murmur/Palpitations?denies.?Gastrointestinal:?Hemorrhoids?denies.?Stomach/Abdominal pain?denies.?Dark blood stool?denies.?Irritable bowel ?denies.?Constipation?denies.?Diarrhea?denies.?Hematology:?Swelling?admits.?Clots?denies.?Varicose Veins?denies.?Bruising?denies.?Bleeding problem?denies.?Genitourinary:?Blood urine?denies.?Frequent/Painfu/urination/bladder control?denies.?Kidney stones?denies.?Infection (UTI)?denies.?Nephropathy?denies.?sex trans dis (STD)?denies.?Prostate?denies.?Musculoskeletal:?Hammertoes?admits.?Bunions?denies.?Back Pain?denies.?Muscle Cramps/ Resting?denies.?Muscle cramps / walking?denies.?Generalized aches and pains?denies.?Weakness?admits, that is generalized.?Integ.:?Solomon?denies.?Scars?denies.?Corns/calluses?admits.?Ingrown nails?admits.?Painful nails?admits.?Open Sores?admits.?Rashes?denies.?Neurologic:?Difficulty sleeping?denies.?Brain disorder?denies.?Numbness?denies.?Balance t rouble?admits.?Confusion?denies.?Fainting/blackouts?denies.?Tingling?denies.?Aj mors?denies.? * Medical History:? * Surgical History:?appendecto my 2009hand/wrist 1983leg surgery 1981 * Hospitalization/Major Diagno stic Procedure:?ER in [place] 02/2018[facility]- Pain in ankle- negetive ultrasound and x-ray 04/[place] [place] leg infection 07/19-07/25 * Family History:?Mother: james gardner, diagnosed with Diabetic - NIDDM, Unspecified essential hypertension, Family history of arthritis.?Father: alive, foot problems, poor circulation, diagnosed with Diabetic - NIDDM, Unspecified essential hypertension, Family history of arthritis.? * Social History:?Tobacco Use:?Tobacco use other than smoking?Are you an other tobacco user??No ?Tobacco Control (Standard)?Tobacco use:?Nonsmoker ?Additional Findings: Tobacco non-user?Current nonsmoker ???Drugs/Alcohol:?Drugs?Have you used drugs other than those for medical reasons in the past 12 months??No ???Miscellaneous:?Caffeine: yes, 1-2 cups per day, frequency:. ?Children: no. ?Exercise: yes, alexis. ?Marital status: single. ???Drug/Alcohol:?AUDIT-C (Standard)?Did you have a drink containing alcohol in the past year??No ?Points?0 ?Interpretation?Negative * Medications:?TakingMupirocin 2 % Ointment 1 application Externally Twice a day Systane Vitamin E Ammonium Lactate 12 % Cream 1 application Externally Twice a day Breo Ellipta 200-25 MCG/INH Aerosol Powder Breath Activated 1 puff Inhalation Once a day Bismuth Lisinopril 5 MG Tablet 1 tablet Orally Once a day Lasix 40 MG Tablet 1 tablet Orally Once a day [facility]S Ear Wax Removal System Alendronate Sodium 70 MG Tablet 1 tablet 30 minutes before the first food, beverage or medicine of the day with plain water Orally Meclizine HCl 12.5 MG Tablet 2 tablets as needed Orally Once a day Calcium 600 + D 600-200 MG-UNIT Tablet Orally Cetirizine HCl , Notes to Pharmacist: twice a dayCetaphil Clotrimazole , Notes to Pharmacist: as neededCyproheptadine , Notes to Pharmacist: as neededDocusate Sodium 100 MG Capsule 1 capsule as needed Orally Once a day Fluticasone Furoate Gas Relief hydrOXYzine HCl Ibuprofen Ipratropium-Albuterol Ipratropium Dudley Jock Itch 1 % Cream 1 application to affected area Externally Twice a day Ketotifen Fumarate Montelukast Sodium Naproxen Ondansetron HCl PriLOSEC OTC ProAir HFA , Notes to Pharmacist: as neededProctofoam , Notes to Pharmacist: as neededSaline Nasal Weikert , Notes to Pharmacist: as neededSUMAtriptan Succinate CVS Jock Itch Alclometasone Dipropionate Gabapentin 100 MG Capsule Orally Once a day Loratadine Allergy Relief Vitamin C 500 MG Tablet Orally Clotrimazole Diclofenac Sodium 1 % Gel USE DIRECTED 2 TIMES A DAY Taking Mupirocin 2 % Ointment 1 application Externally Twice a day Taking Systane Taking Vitamin E Taking Ammonium Lactate 12 % Cream 1 application Externally Twice a day Taking Breo Ellipta 200-25 MCG/INH Aerosol Powder Breath Activated 1 puff Inhalation Once a day Taking Bismuth Taking Lisinopril 5 MG Tablet 1 tablet Orally Once a day Taking Lasix 40 MG Tablet 1 tablet Orally Once a day Taking CVS Ear Wax Removal System Taking Alendronate Sodium 70 MG Tablet 1 tablet 30 minutes before the first food, beverage or medicine of the day with plain water Orally Taking Meclizine HCl 12.5 MG Tablet 2 tablets as needed Orally Once a day Taking Calcium 600 + D 600- 200 MG-UNIT Tablet Orally Taking Cetirizine HCl , Notes to Pharmacist: twice a dayTaking Cetaphil Taking Clotrimazole , Notes to Pharmacist: as neededTaking Cyproheptadine , Notes to Pharmacist: as neededTaking Docusate Sodium 100 MG Capsule 1 capsule as needed Orally Once a day Taking Fluticasone Furoate Taking Gas Relief Taking hydrOXYzine HCl Taking Ibuprofen Taking Ipratropium-Albuterol Taking Ipratropium Dudley Taking Jock Itch 1 % Cream 1 application to affected area Externally Twice a day Taking Ketotifen Fumarate Taking Montelukast Sodium Taking Naproxen Taking Ondansetron HCl Taking PriLOSEC OTC Taking ProAir HFA , Notes to Pharmacist: as neededTaking Proctofoam , Notes to Pharmacist: as neededTaking Saline Nasal Weikert , Notes to Pharmacist: as neededTaking SUMAtriptan Succinate Taking CVS Jock Itch Taking Alclometasone Dipropionate Taking Gabapentin 100 MG Capsule Orally Once a day Taking Loratadine Allergy Relief Taking Vitamin C 500 MG Tablet Orally Taking Clotrimazole Taking Diclofenac Sodium 1 % Gel USE DIRECTED 2 TIMES A DAY Not-Taking/PRNMeloxicam 15 MG Tablet 1 tablet Orally Once a day Fluconazole 150 MG Tablet 1 tablet Orally Once a day Spiriva Respimat Flovent HFA Prednisone Medication List reviewed and reconciled with the patientNot-Taking/PRN Meloxicam 15 MG Tablet 1 tablet Orally Once a day Not-Taking/PRN Fluconazole 150 MG Tablet 1 tablet Orally Once a day Not-Taking/PRN Spiriva Respimat Not-Taking/PRN Flovent HFA Not- Taking/PRN Prednisone Medication List reviewed and reconciled with the patient * Allergies:?BactrimSymbicort: Allergyyes[Allergies Verified] Objective: * Vitals:?Ht: 5ft, Wt:178, BMI :34.76, Shoe size: 5.5-6, BP:127/76mm Hg, BS: 98, Ht-cm: 152.4 cm, Wt-k.74 kg. * ???Past Orders: ???Lab:HEMOGLOBIN A1C (GLYCO HEMOGLOBIN) (Order Date - 09/19/2024) (Collection Date & Time - 09/19/2024 11:29 AM) ? Value Reference Range ?TOTAL HEMOGLOBIN (HGBA1C) 6.1 * Examination: ???Ophthalmology Referral: ?DIABETES EYE EXAM?Procedure Performed:?Yes ?Date of Exam Performed?09/01/2024 ?Diabetic Retinopathy Screening:?Yes ?Retinal Screening Performed:?Yes ?Findings of Diabetic Eye Exam:?no retinopathy?Vascular: ?DP PULSES (B):? 0/4, B/L.?PT PULSES (B):? 0/4, B/L.?CAPILLARY FILL TIME:? delayed, all digits, B/L.?TROPHIC CONDITION-TEXTURE/ELASTICITY/TURGOR/HAIR GROWTH (B):? decreased, fragile, thin, shiny, with sparse to absent hair growth, B/L.?TEMPERTURE GRADIENT (C):? decreased, cool to cool, proximal to distal, B/L.?PIGMENTATION:?rubrous, B/L.?EDEMA (C):?3/4, non-pitting, without aching pain, Leg(s), Ankle(s), Foot, B/L.?CLAUDICATION (C):?denies, B/L.?REST PAIN:?denies, B/L.?PARESTHESIA (C):?absent, B/L.?BURNING (C):?absent, B/L.?Nails: ?NAILS are:?Elongated, overgrown, dystrophic, lytic, greater than 3mm thick, discolored and friable with crumbly malodorous subungual debris, with pain on palpation, TA, T1, T2, T3, T4, T5, T6, T7, T8, T9.?Dermatologic: ?SKIN FINDINGS:?Skin exam reveals Keratotic lesion(s) located at, Medial, IPJ, TA, Medial, IPJ, T5.?ULCER:? LOCATION,Lateral,TA, SIZE, 5mm X 5mm X 2mm, BASE, granular, RIM, hyperkeratotic, UNDERMINING, absent, TRACKING, Full thickness breakdown of skin, DRAINAGE, serosanguineous, mild, NECROTIC TISSUE,adherent, soft black eschar, MALODOR, absent, CALOR, absent, ERYTHEMA, absent, PAIN ON PALPATION, present.?Neurological: ?SENSORY:?Neurological exam reveals intact sensorium, pain sensation normal, vibration sensation intact, pinprick sensation is normal in the lower extremities, 5.07 monofilament test performed at plantar aspects of 5 varied sites per foot shows sensation, normal, B/L, Pt denies, anesthesia, burning, paresthesia, tingling, B/L.?Orthopedic: ?MUSCLE STRENGTH:?Generalized decrease in strength, B/L.?DIGITAL DEFORMITIES:?Digital contracture, PIPJ, 2-5 B/L, incompl-reducible to push-up test, no over, nor underlapping,?there is?evidence of shoe producing skin irritation.?FOOTWEAR:?worn, non-supportive, shoe gear properties exacerbate patient's foot/toe deformity.?General Examination: ?GENERAL APPEARANCE:?Reveals a pleasant, alert, well nourished, well- developed, well hydrated individual, who demonstrates proper attention to hygiene/body habitus, and is in no acute distress, Pt serves as own historian for office visit today.?ORIENTED:?person, place, and time.?FOOT EXAM:?Lower Extremity Neurological Exam performed:?Yes Date ?Visual exam of foot performed:?Yes ?Date?01/30/2025 ?Footwear Evaluation?Footwear Evaluation performed:?Yes??? Assessment: * Assessment: 1.?Type 2 diabetes mellitus with diabetic peripheral angiopathy without gangrene - E11.51???Specify :Q8???Notes :Q7(A), Q8(2B), Q9(1B,2C)???2.?Tinea unguium - B35.1???3.?Pain in right toe(s) - M79.674???4.?Pain in left toe(s) - M79.675???5.?Other hammer toe(s) (acquired), left foot - M20.42???Specify :Chronic problem, Worse (4),Rx Management (4)???6.?Skin ulcer of toe of left foot, limited to breakdown of skin - L97.521???Notes :Response to treatment Nonapplicable???7.?Other hammer toe(s) (acquired), right foot - M20.41 (Primary)???Specify :Chronic problem, Worse (4),Rx Management (4)??? Plan: * Treatment: 2.?Type 2 diabetes mellitus with diabetic peripheral angiopathy without gangrene?Procedure: 05818-JJUC SKIN LESIONS, 2 TO 4 3.?Tinea unguium?Procedure: [id number] NAIL, 6 OR MORE 4.?Skin ulcer of toe of left foot, limited to breakdown of skin?Procedure: 62828- Debride <25 sq cm Notes: Patient Educated with: WOUND CARE INSTRUCTIONS.pdf (WOUND CARE INSTRUCTIONS.pdf)?? * Procedures:?Debride Nail 6-10:?Nail debridement?Due to the clinical pathology outlined in the exam findings, performance of this nail treatment is medically necessary as its management by an unskilled/untrained nonprofessional would put this patients foot and overall health at risk. Therefore, debridement to affected nail(s), as described in exam (?TA, T1, T2, T3, T4, T5, T6, T7, T8, T9?), was performed exclusively by the physician of record to reduce/remove overall nail length, girth, thickness, subungual debris, and necrotic tissue, by manual and/or electrical means through the use of a nail nipper and/or dremel-type microgrinder operator, to a more viable healthy nail plate or bed tissue 6- 10 nails in total. Silver nitrate was used for any petechial bleeding as necessary. Definitive antifungal treatment options, both pharmaceutical and surgical, have been reviewed and discussed with the patient. The patient solely prefers the use of intermittent/as needed professional debridement services for their nail condition and understands the need for additional periodic treatments to maintain effectiveness in symptomatic relief - 35679.?Debride skin< 25 sq cm:?Open wound?Physician of record performed open wound selective debridement of first 25 sq cm or less, of devitilized necrotic/nonviable soft tissue, fibrin, and exudate extending from the epidermis through the dermis, utilizing sharp dissection with sterile 15 blade, and/or tissue nippers. Sterile antibiotic dressing applied, ANESTHESIA- was accomplished TOPICALLY with Lidocaine Hydrochloride Jelly 2 percent. Hemostasis was achieved through direct pressure. Post debridement measurements: 6mm x 6mm x 2mm. Character of the wound post debridement is stable (37347).?Keratoma Treatment:?Parring or Cutting of Benign Hyperkeratotic Lesion(s)?(-56) 2-4 Lesions - Due to the at risk nature of the patients medical condition as documented in the exam findings, performance of this keratoderma treatment is medically necessary as its management by an unskilled/untrained nonprofessional would put this patients foot and overall health at risk. Therefore, the benign hyperkeratotic lesions, ( 2 ) in total, locations as stated and described in the exam (?Medial,?IPJ,?TA,?Medial,?IPJ,?T5?), were pared, and/or cut utilizing a sterile 15 blade, tissue nippers, and/or power dremel instrumentation by the physician of record - 82569, Q8.? * Procedure Codes:?14600 DEBRI DE NAIL, 6 OR MORE, Modifiers: XS 19961 ACTIVE WOUND CARE/20 CM OR <, Modifiers: XS 25577 TRIM SKIN LESIONS, 2 TO 4, Modifiers: XS , Q8 * Preventive Medicine:? ??Counseling:?Discussion:?-14: Office or other outpatient visit for the evaluation and management of an established patient, which required a medically appropriate history and/or examination and MODERATE level of DECISION MAKING for: 1 OR MORE CHRONIC PROBLEM(S) THATS WORSENING, 2 STABLE CHRONIC PROBLEMS, A NEWLY DIAGNOSED PROBLEM WITH UNCERTAIN PROGNOSIS, AN ACUTE COMPLICATED INJURY WITH MULTIPLE TREATMENT OPTIONS, OR AN ACUTE PROBLEM WITH ACCOMPANYING SYSTEMIC SYMPTOMS, THAT POSE(S) A MODERATE RISK OF MORBIDITY. THIS CONDITION MAY ALSO INCLUDE RX DRUG MANAGEMENT, OR A DECISON FOR MINOR SURGERY. The visit on the day of the encounter encompassed interpreting the data and educating the patient as to the nature of their condition, treatment options available according to their individual PMH, meds, allergies, and overall health/living conditions, as well as any potential risks or complications that may occur from a failure to adhere to, and participate in, the recommended course of therapy. The discussion included a complete verbal, and/or written explanation of the examination results, any x-rays taken, the proposed diagnosis, and outline of the treatment plan. A schedule for future care needs was also explained. The patient verbalized an understanding of the instructions at this time and agreed to be an active participant in their treatment. If the patient should think of any questions or concerns after the visit, I have encouraged the patient to call the office.?Digital Surgery:?Digital surgery was discussed with the patient, We elected to try conservative treatment at the present time, due to the patients medical history and increased asssociated post-operative risks.?Digital Treatment:?HT- I explained to the patient the possible etiologies of Hammertoes, including genetics/foot type/shoegear/activity level/exercise routine and the risks/benefits of all the different treatment options for their pain including: No treatment at all, Rest, Ice, New/supportive/wider/deeper Shoegear, Digital Padding/Strapping/Taping/Bracing/Gel protective sleeves, Foot/Ankle AFO Bracing, Stretching exercises, Deep Tissue Massage, Arch support/shoe inserts with splay metatarsal padding, and Custom orthoses. I insisted that any digital devices be removed daily and not worn overnight for safety. The patient is to carefully examine the toes daily for any skin irritation while using any splinting or padding device. The advantages and disadvantages of each option were discussed and the patients questions re: shoegear, padding, custom vs prefabricated inserts, activity level, and consistency in home treatment regimens for optimal success were answered to their verbally confirmed satisfaction.?Shoe Gear Counseling:?SHOE Rx - The patient was counseled in great detail on their muscoloskeletal foot and toe deformities which coincided with the dermatological presentations visualized on exam. We discussed how their deformities put the integrity of their feet at risk for potential pedal complications which makes the accomidative diabetic shoes and cutomizable inserts medically necessary. We discussed the different shoe and insert treatment types and options, as well as the important advantages for adhering to regularly wearing these accomidative devices daily. The patient was made aware of the fact that a failure to abide by these recommedations may be deleterious to their foot health as they are able to prevent many pedal complications such as skin irritation, skin ulceration, infection, and even loss of toe/foot/leg/or life. Time was also spent with the patient dispensing and discussing proper diabetic footcare techniques including daily skin moisturization, daily foot inspection for any interruption in skin integrity including open lesions, or sign of infection such as redness/malodor/drainage/swelling. Also discussed and recommended were procedures regarding daily shoe inspection for the presence of internal foreign bodies as well as any visualized irregular shoe or insert wear. Patient questions re: shoes, inserts, and self foot inspections were answered to their satisfaction as the patient verbally confirmed a full understanding of the above information. A Rx for Extra Depth Orthopedic Shoes with 3 pair of custom heat-molded inserts was dispensed.?Ulcer:?A detailed plan of care was reviewed with the patient. We emphasized the fact that the patient takes on an active participating role in the treatment process and emphasized to them that they are an included, valued, and important member of the wound healing team in order to reach an expedient successful outcome. The patient agreed to follow their medically recommended diet while increasing their protein intake if safely able to do so, maintain proper bodily hydaration, abide by weight-bearing restrictions at all times, quit all current smoking habits if any, and diligently follow any/all dressing change instructions. It was clearly made known to the patient that if they fail to do their part, they will likely extend their course of treatment as well as possibly increase their risk of adverse events including amputation. The patient was instructed on importance of proper wound care consisting of pressure reduction, and proper maintainance of a moist wound environment. The patient is to cleanse the wound with warm soapy water/peroxide/saline, or betadine BID based on product availability. The patient is to apply ( Neosporin, Polysporin, or Triple, ) Antibiotic to the wound and cover with a DSD as directed. The patient was instructed to change dressings according to orders, or PRN saturation, leaks. The patient was instructed to monitor and report any signs or symptoms of infection or any untoward reactions. Precautions Taken: Offloading/Pressure reduction via rest/ limited activity to essential to daily life only, cane/ crutches/ walker/ knee scooter/ wheel chair, shoe modification, accommodative padding, sharp debridement, and take/apply medication as directed. THE GOALS of wound debridement to remove devitilized tissue, decrease risk for infection, promote wound healing and prevent further complication were discussed/reviewed. Debridement frequency as indicated.? ??Screening/Special Tests:?Fall Risk?Screening:?No falls in the past year ?FALLS: Screening for Future Fall Risk?Have you had any falls with injury in the past year??No * Follow Up:?3 Months,To see Gabino Bustillo * Images: * Sign off status: Completed true * Provider:?Yoni Bhatt DPM Date:?2024 Generated for Deny lou/Klaudia/David on:?03/14/2025 04:58 PM EDT History and Physical Notes * HPI (History of Present Illness) Category Sub-Category Detail Notes Category Not es Toe pain Location: B/L feet Duration: several years Course: worse Aggravated by: shoes, any pressure Treatments: change in shoes Skin problems Treatments: none At Risk footcare Pt States Last PCP Visit: Date: 4 Examination Category Sub-Category Detail Notes Category Not es Neurological SENSORY: Neurological exa m reveals intact sensorium, pain sensation normal, vibration sensation intact, pinprick sensation is normal in the lower extremities, 5.07 monofilament test performed at plantar aspects of 5 varied sites per foot shows sensation, normal, B/L, Pt denies, anesthesia, burning, paresthesia, tingling, B/L Dermatologic SKIN FINDINGS: Skin exam reveal s Keratotic lesion(s) located at, Medial, IPJ, TA, Medial, IPJ, T5 ULCER: LOCATION,Lateral,TA, SIZE, 5mm X 5mm X 2mm, BASE, granular, RIM, hyperkeratotic, UNDERMINING, absent, TRACKING, Full thickness breakdown of skin, DRAINAGE, serosanguineous, mild, NECROTIC TISSUE,adherent, soft black eschar, MALODOR, absent, CALOR, absent, ERYTHEMA, absent, PAIN ON PALPATION, present Orthopedic FOOTWEAR EVALUATION: worn, non-s upportive, shoe gear properties exacerbate patient's foot/toe deformity DIGITAL DEFORMITIES: Digital contracture , PIPJ, 2-5 B/L, incompl-reducible to push-up test, no over, nor underlapping, there is evidence of shoe producing skin irritation MUSCLE STRENGTH: Generalized decrease in strength, B/L General Examination GENERAL APPEARANCE: Reveals a pleasant, alert, well nourished, well-developed, well hydrated individual, who demonstrates proper attention to hygiene/body habitus, and is in no acute distress, Pt serves as own historian for office visit today FOOT EXAM: Lower Extremity Neurological Exa m performed:: Yes Date Visual exam of foot performed:: Yes Date: 01/30/2025 ORIENTED: person, place, and t anneliese Footwear Evaluation Footwear Evaluation performe d:: Yes Ophthalmology Referral DIABETES EYE EXAM Procedure Perform ed:: Yes ?Date of Exam Performed: 09/01/2024 Diabetic Retinopathy Screening:: Yes Retinal Screening Performed:: Yes Findings of Diabetic Eye Exam:: no retin opathy Vascular DP PULSES (B): 0/4, B/L PT PULSES (B): 0/4, B/L CAPILLARY FILL TIME: delayed, all digits , B/L TEMPERTURE GRADIENT (C): decreased, cool to cool, proximal to distal, B/L TROPHIC CONDITION-TEXTURE/ELASTICITY/TURGOR/HAIR GROWTH (B): decreased, fragile, thin, shiny, with sp arse to absent hair growth, B/L EDEMA (C): 3/4, non-pitting, wi thout aching pain, Leg(s), Ankle(s), Foot, B/L CLAUDICATION (C): denies, B/L REST PAIN: denies, B/L PIGMENTATION: rubrous, B/L PARESTHESIA (C): absent, B/L BURNING (C): absent, B/L Nails NAILS are: Elongated, overg rown, dystrophic, lytic, greater than 3mm thick, discolored and friable with crumbly malodorous subungual debris, with pain on palpation, TA, T1, T2, T3, T4, T5, T6, T7, T8, T9
--- OUTSIDE RECORDS SUMMARY | 2025-03-14 16:58 | XMS_ITS | Encounter Summary ---
Author Organization [employer] Address [address] [place] [address] Care Team Providers Care Automatic I Threading Machine Feeder Name Role Phone Marisabel Michel MD Primary Care Provider [phone] Encounter Details Date Type Department Care Team (Late st Contact Info) Description 06/30/2024 Orders Only [facility] [address] [place], [place] [phone] Marisabel Michel MD [address] [place] [address] Prediabetes (Primary Dx); Primary hypertension; Acute right ankle pain; Fever, unspecified fever cause Social History Tobacco Use Types Packs/Day Years [...] Procedure Name Priority Date/Time Associated Diagnosis Comments HEMOGLOBIN A1C Routine 08/02/2024 5:05 PM EDT Prediabetes TSH W/REFLEX TO FT4 Routine 07/15/2024 3 :24 PM EDT Primary hypertension Fever, unspecified fever cause CBC WITH AUTO DIFFERENTIAL Routine 07/15/2024 3:24 PM EDT Fever, unspecified fever cause SED RATE BY MODIFIED WESTERGREN Routine 07/15/2024 3:24 PM EDT Acute right ankle pain C-REACTIVE PROTEIN Routine 07/15/2024 3: 24 PM EDT Acute right ankle pain URIC ACID Routine 07/15/2024 3:24 PM EDT Acute right ankle pain COMPREHENSIVE METABOLIC PANEL Routine 07/15/2024 3:24 PM EDT Fever, unspecified fever cause VASC US LOWER EXTREMITY VENOUS DUPLEX BILATERAL Routine 07/15/2024 2:00 PM EDT documented in this encounter Results * (ABNORMAL) Hemoglobin A1c (08/02/2024 5:05 PM EDT) Hemoglobin A1c 6.1(H) <6.0 % [facility] Comment:Hemoglobin A1C Refer ence Range Adults: 4.8 - 6.0 % Non diabetic: < 6.0 % Goal: < 7.0 %Additional Action Suggested: > 8.0 %Note: Hemoglobin A1c results are invalid for patients with abnormal amounts of HbF. Blood transfusions may impact the HbA1c concentration in the patient sample. Estimated Average Glucose 128 mg/dL [facility] Comment:eAG = Estimated ave rage glucose which is %A1C expressed asaverage glucose, using the formula of the X9Z-YmvwtdbGuzyxwd Glucose study (ADAG), Diabetes Care, Vol.31,#8,2007 Blood Venous blood specimen / Unknown 08/02/2024 5:05 PM EDT 08/02/2024 5:10 PM EDT Marisabel Michel MD LAB BLOOD ORDERABLES Final Resul t Performing Organization Address [facility] de Phone Number [facility] [address] [place] [phone] * (ABNORMAL) TSH with Reflex to Free T4 (07/15/2024 3:24 PM EDT) TSH reflex Free T4 0.19(L) 0.32 - 4.0 uIU/mL [facility] Blood 07/15/2024 3:24 PM EDT 07/15/2024 3:26 PM EDT Marisabel Michel MD LAB BLOOD ORDERABLES Final Resul t Performing Organization Address [facility] Co de Phone Number [facility] [address] [place] [phone] * (ABNORMAL) Sed Rate by Modified Yonnyergren (07/15/2024 3:24 PM EDT) Erythrocyte Sedimentation Rate 71(H) 0 - 20 MM/HR [facility] Comment:Patients with polycy themia and many hemoglobin abnormalitiesmay have depressed sed rates whereas patients with anemiamay have elevated sed rates. Blood Venous blood specimen / Unknown 07/15/2024 3:24 PM EDT 07/15/2024 3:26 PM EDT Marisabel Michel MD LAB BLOOD ORDERABLES Final Resul t Performing Organization Address [facility] Phone Number [facility] [address] [place] [phone] * (ABNORMAL) C-reactive Protein (07/15/2024 3:24 PM EDT) C Reactive Protein 18.68(H) < or = 0.50 mg/dL [facility] Blood Venous blood specimen / Unknown 07/15/2024 3:24 PM EDT 07/15/2024 3:26 PM EDT Marisabel Michel MD LAB BLOOD ORDERABLES Final Resul t Performing Organization Address [facility] Phone Number [facility] [address] [place] [phone] * Uric acid (07/15/2024 3:24 PM EDT) Uric Acid 4.8 2.4 - 5.7 mg/dL [facility] Blood Venous blood specimen / Unknown 07/15/2024 3:24 PM EDT 07/15/2024 3:26 PM EDT Marisabel Michel MD LAB BLOOD ORDERABLES Final Resul t Performing Organization Address [facility] de Phone Number [facility] [address] [place] [phone] * (ABNORMAL) Comprehensive Metabolic Panel (07/15/2024 3:24 PM EDT) Sodium 141 135 - 145 mmol/L [facility] Potassium 3.5 3.3 - 5.1 mmol/L [facility] Chloride 105 96 - 108 mmol/L [facility] Carbon Dioxide 20(L) 22 - 29 mmol/L [facility] Anion Gap 20 12 - 20 [facility] Urea Nitrogen (BUN) 13 9 - 16 mg/dL [facility] Creatinine, Serum 0.81 0.5 - 1.4 mg/dL [facility] Estimated Glomerular Filt Rate >60 [facility] Comment:NOTE: For -Am erican individuals, multiply the result by 1.210.Chronic Kidney Disease: Estimated GFR < 60 mL/min/1.93d3Wdxpxv Kidney Disease: Estimated GFR < 15 mL/min/1.73m2 Glucose 91 60 - 115 mg/dL [facility] Calcium 10.5(H) 8.4 - 10.2 mg/dL [facility] Bilirubin, Total 0.4 0.0 - 1.0 mg/dL [facility] Aspartate Amino Transferase 17 5 - 31 U/L [facility] Alanine Aminotransferase 18 0 - 31 U/L [facility] Total Protein 8.5(H) 6.5 - 8.0 g/dL [facility] Albumin Level 4.3 3.5 - 5.0 g/dL [facility] Alkaline Phosphatase 87 39 - 117 U/L [facility] Blood Venous blood specimen / Unknown 07/15/2024 3:24 PM EDT 07/15/2024 3:26 PM EDT us Marisabel Michel MD LAB BLOOD ORDERABLES Final Resul t [facility] [address] [place] [phone] * (ABNORMAL) CBC auto differential (07/15/2024 3:24 PM EDT) White Blood Count 8.9 4.8 - 10.8 X10*3/uL [facility] Red Blood Count 4.49 4.20 - 5.50 X10*6/uL [facility] Hemoglobin 12.9 12.0 - 16.0 g/dl [facility] Hematocrit 39.1 37.0 - 47.0 % [facility] Mean Corpuscular Volume 87.1 80.0 - 98.0 fL [facility] Mean Corpuscular Hemoglobin 28.7 27.0 - 33.0 pg [facility] Mean Corpuscular HGB Conc 33.0 31.0 - 35.0 g/dl [facility] Red Cell Distribution Width 13.7 11.0 - 16.0 % [facility] Platelet Count 223 160 - 400 X10*3/uL [facility] Mean Platelet Volume 13.1(H) 9.4 - 12.3 fL [facility] Neutrophils Percent Auto 68.4 45 - 73 % [facility] Imm Gran Pct Auto 0.6(H) 0.0 - 0.4 % [facility] Lymphocytes Percent Auto 17.3(L) 20 - 40 % [facility] Monocytes Percent Auto 10.3 2 - 11 % [facility] Eosinophils Percent Auto 3.1 0 - 4 % [facility] Basophils Percent Auto 0.3 0 - 2 % [facility] NRBC Pct Auto 0.0 0.0 - 0.2 /100WBC [facility] Neutrophils Absolute Auto 6.1 2.0 - 8.3 x10*3/uL [facility] Imm Gran Abs Auto 0.05(H) 0.00 - 0.03 X10*3/uL [facility] Lymphocytes Absolute Auto 1.6 1.2 - 4.9 X10*3/uL [facility] Monocytes Absolute Auto 0.9 0.1 - 1.2 X10*3/uL [facility] Eosinophils Absolute Auto 0.3 0.0 - 0.4 X10*3/uL [facility] Basophils Absolute Auto 0.0 0.0 - 0.2 X10*3/uL [facility] NRBC Abs Auto 0.000 0.0 - 0.012 X10*3/uL [facility] Blood Venous blood specimen / Unknown 07/15/2024 3:24 PM EDT 07/15/2024 3:26 PM EDT us Marisabel Michel MD LAB BLOOD ORDERABLES Edited Resu lt - Final [facility] [address] [place] [phone] * VASC US Lower Extremity Venous Duplex Bilateral (07/15/2024 2:00 PM EDT) 07/15/2024 2:00 PM EDT Narrative [facility] - 07/15/2024 2:49 PM EDT ? [facility] ?[address] ?[place] [address] ? Ultrasound Report ? Signed ? Patient: Radha Kimball ?MR#: ?? [id number] ? : 1970 ?Acct:[id number] ? Age/Sex: 53 / F ?ADM Date: 07/15/24 ? Loc: HO.US ? Attending Dr: Sebastian Matta MD ? Ordering Physician: Sebastian Matta MD ?? Date of Service: 07/15/24 ?? Procedure(s): US venous duplex LE BI ?? Accession Number(s): [id number] ? cc: Sebastian Matta MD; Marisabel Michel MD ? EXAMINATION: ?? US TRIPLEX LOWER EXTREMITY, BILATERAL ? CLINICAL INFORMATION: ?? Pain. ? COMPARISON: ?? Right lower extremity ultrasound 05/10/2024. Left lower extremity ?? ultrasound 05/03/2019. ? TECHNIQUE: ?? Color-flow triplex imaging with spectral analysis and compression ?? Doppler were performed on the bilateral lower extremities. ? FINDINGS: ?? The visualized common femoral vein, superficial femoral vein, profunda ?? femoral vein and popliteal venous segments show no evidence of deep ?? venous thrombosis bilaterally, with the caveat that the left mid ?? femoral vein was incompletely evaluated secondary to pain at the moment ?? of the compression, however appears patent on color Doppler. ? The left calf veins and right peroneal veins were not seen. The right ?? posterior tibialis vein are patent. ? There is no Robert's cyst. ? US/US venous duplex LE BI ?? IMPRESSION: ?? No evidence of deep venous thrombosis in the bilateral lower ?? extremities with the caveat of limited evaluation as above. ? Electronically signed by: ??Dina Carroll MD ??07/15/2024 02:45 PM EDT ? Dictated By: ?Carly,Filomena ? Signed By: ?<Electronically signed by Filomena ??Carly in OV> ? 07/15/24 1445 ? DD/ 1400 ? TD/TT: 07/15/24 1420 ? Studio Control Operator: ? Procedure Note Ameyater, Image - 07/15/[address] [address] Ultrasound Report Signed Patient: Radha KimballMR#: [id number] : 1970Acct:[id number] Age/Sex: 53 / FADM Date: 07/15/24 Loc: HO.US Attending Dr: Sebastian Matta MD Ordering Physician: Sebastian Matta MD Date of Service: 07/15/24 Procedure(s): US venous duplex LE BI Accession Number(s): [id number] cc: Sebastian Matta MD; Marisabel Michel MD EXAMINATION: US TRIPLEX LOWER EXTREMITY, BILATERAL CLINICAL INFORMATION: Pain. COMPARISON: Right lower extremity ultrasound 05/10/2024. Left lower extremity ultrasound 05/03/2019. TECHNIQUE: Color-flow triplex imaging with spectral analysis and compression Doppler were performed on the bilateral lower extremities. FINDINGS: The visualized common femoral vein, superficial femoral vein, profunda femoral vein and popliteal venous segments show no evidence of deep venous thrombosis bilaterally, with the caveat that the left mid femoral vein was incompletely evaluated secondary to pain at the moment of the compression, however appears patent on color Doppler. The left calf veins and right peroneal veins were not seen. The right posterior tibialis vein are patent. There is no Robert's cyst. US/US venous duplex LE BI IMPRESSION: No evidence of deep venous thrombosis in the bilateral lower extremities with the caveat of limited evaluation as above. Electronically signed by: Dina Carroll MD 07/15/2024 02:45 PM EDT Dictated By: Filomena Carroll Signed By: <Electronically signed by Filomena Carroll in OV> 07/15/24 1445 DD/ 1400 TD/TT: 07/15/24 1420 Studio Control Operator: us [facility] External Provider CV VASC ULAR PROCEDURES Final Result Performing Organization Address City/State/[facility] Co de Phone Number [facility] [address] [place] [phone] documented in this encounter Visit Diagnoses Diagnosis Prediabetes- Primary Other abnormal glucose Primary hypertension Unspecified essential hypertension Acute right ankle pain Fever, unspecified fever cause documented in this encounter Additional Health Concerns Assessment Noted Time PHQ-9 Depression Total Score: 0 03/29/20 24 3:23 PM EDT documented as of this encounter Care Teams Automatic I Threading Machine Feeder Relationship Specialty Start Date End Date Marisabel Michel MD [address] [place] [phone] PCP - General Family Medicine 09/04/11 documented as of this encounter
--- OUTSIDE RECORDS SUMMARY | 2025-03-14 16:58 | XMS_ITS | Encounter Summary ---
Author Organization [employer] Address [address] [place] [address] Care Team Providers Care Grid Inspector Name Role Phone Marisabel Michel MD Primary Care Provider [phone] Reason for Referral * Consultation (Urgent) - Closed Specialty Diagnoses / Procedures Referred By Contac t Referred To Contact Diagnoses Cellulitis of right lower leg Pain in right lower leg Marisabel Michel MD [address] [place] [address] Phone: tel: fax: Ester Palm MD [address] [place] [address] Phone: tel: Referral ID Status Reason Start Date Expiration Date V isits Requested Visits Authorized [id number] Closed Specialty Services Required 08/29/2024 08/29/2025 1 1 Encounter Details Date Type Department Care Team (Late st Contact Info) Description 08/29/2024 Orders Only [facility] [address] [place], [place] [phone] Marisabel Michel MD [address] [place], [place] [phone] Cellulitis of right lower leg (Primary Dx); Pain in right lower leg Social History Tobacco Use Types Packs/Day Years [...] Scheduled Referrals Name Type Priority Associated Diagnoses Order Schedule Referral to Infectious Disease Outpatient Referral Urgent Cellulitis of right lower leg Pain in right lower leg Expected: 08/29/2024 (Approximate), Expires: 08/29/2025 documented as of this encounter Visit Diagnoses Diagnosis Cellulitis of right lower leg- Primary Pain in right lower leg documented in this encounter Additional Health Concerns Assessment Noted Time PHQ-9 Depression Total Score: 0 03/29/20 24 3:23 PM EDT documented as of this encounter Care Teams Grid Inspector Relationship Specialty Start Date End Date Marisabel Michel MD [address] [place] [address] PCP - General Family Medicine 09/04/11 documented as of this encounter
--- OUTSIDE RECORDS SUMMARY | 2025-03-14 16:58 | XMS_ITS | Encounter Summary ---
Author Organization [employer] Address [address] 7t [place] [address] Care Team Providers Care Gizzard Skin Remover Name Role Phone Marisabel Michel MD Primary Care Provider [phone] Encounter Details Date Type Department Care Team ([facility] st Contact Info) Description 12/02/2022 Orders Only [facility] MEDICINE [address] [place] [address] Marisabel Michel MD [address] [place] [address] Moderate persistent asthma without complication (Primary Dx); Allergic rhinitis due to other allergic trigger, unspecified seasonality; Intrinsic atopic dermatitis Social History Tobacco Use Types Packs/Day Years Used Date Smoking Tobacco: Never Passive Smoke Exposure: Never Smokeless Tobacco: Never Comments Unknown Sex and Gender Information Value Date Recorded Sex Assigned at Female 09/22/2022 10:16 AM EDT Legal Sex Female 10:16 AM EDT Gender Identity Female 09/22/2022 10:16 AM EDT Sexual Orientation Straight 09/22/2022 10 :16 AM EDT COVID-19 Exposure Response Date Recorded In the last 10 days, have yo u been in contact with someone who was confirmed or suspected to have Coronavirus/COVID-19? No / Unsure 11/05/2022 3:23 PM EST documented as of this encounter Plan of Treatment Not on file documented as of this encounter Visit Diagnoses Diagnosis Moderate persistent asthma without complication- Primary Allergic rhinitis due to other allergic trigger, unspecified seasonality Intrinsic atopic dermatitis documented in this encounter Care Teams Gizzard Skin Remover Relationship Specialty Start Date End Date Marisabel Michel MD [address] [place] [phone] PCP - General Family Medicine 09/04/11 documented as of this encounter
--- OUTSIDE RECORDS SUMMARY | 2025-03-14 16:58 | XMS_ITS | Encounter Summary ---
Author Organization [employer] Address [address] [place] [address] Care Team Providers Care Borematic Machine Operator Name Role Phone Marisabel Michel MD Primary Care Provider [phone] Encounter Details Date Type Department Care Team ([facility] st Contact Info) Description 09/29/2024 Orders Only [facility] MEDICINE [address] [place], [place] [phone] Marisabel Michel MD [address] [place] [address] Social History Tobacco Use Types Packs/Day Years [...] documented as of this encounter Care Teams Borematic Machine Operator Relationship Specialty Start Date End Date Marisabel Michel MD [address] [place] [address] PCP - General Family Medicine 09/04/11 documented as of this encounter
--- OUTSIDE RECORDS SUMMARY | 2025-03-14 16:58 | XMS_ITS | Encounter Summary ---
Author Organization [employer] Address [address] 7[address] [place] [address] Care Team Providers Care Sec Reporting Consultant Name Role Phone Marisabel Michel MD Primary Care Provider [phone] Encounter Details Date Type Department Care Team ([facility] st Contact Info) Description 09/08/2024 Orders Only [facility] MEDICINE [address] [place], [place] [phone] Marisabel Michel MD [address] [place], [place] [phone] Social History Tobacco Use Types Packs/Day Years [...] documented as of this encounter Care Teams Sec Reporting Consultant Relationship Specialty Start Date End Date Marisabel Michel MD [address] [place] [address] PCP - General Family Medicine 09/04/11 documented as of this encounter
--- OUTSIDE RECORDS SUMMARY | 2025-03-14 16:58 | XMS_ITS ---
Author Organization [facility] Address [address] [place] [address] Care Team Providers Care Solo Truck Driver Name Role Phone Marisabel Michel Primary Care Provider UnavailYoni Deng Unavailable [phone] Halle Bustillo Unavailable [phone] Castro Encounters Encounter Location Date Provider Diagnosis [address] [address] 12/30/2024 Halle Bustillo Plan Of Treatment Next Appt Details Provider Name:Yoni Bhatt , 05/08/2025 01:30:00 PM, [address] [place] [address], [phone], Progress Notes * Radha JACKDOB: 1 (54 yo F)Acc No.[id number]:12/30/2024 Progress Note Patient:?Radha JACK Provider:?Halle Bustillo DPM :1970???Age:54 Y???Sex:Female D ate:12/30/2024 Address:[address] [place] [address] Pcp:Marisabel Michel Subjective: * Chief Complaints: * ???1. Dr Castro. * Medical History:? Objective: * Vitals:? Assessment: Plan: * Treatment: * Images: * The named appointment provid er may or may not be the originator of this progress note, and it is not deemed complete until electronically signed by the appointment provider. Sign off status: Pending * Provider:Masood Bustillo DPM Date:?0 12/30/2024 Generated for Deny lou/Klaudia/David on:?03/14/2025 04:58 PM EDT
--- OUTSIDE RECORDS SUMMARY | 2025-03-14 16:58 | XMS_ITS | Encounter Summary ---
Author Organization [employer] Address [address] 7t [place] [address] Care Team Providers Care Customer Marketing Intern Name Role Phone Marisabel Michel MD Primary Care Provider [phone] Reason for Referral * Imaging (Urgent) - Canceled Specialty Diagnoses / Procedures Referred By Vee t Referred To Contact Radiology Diagnoses Elevated erythrocyte sedimentation rate Acute right ankle pain Cellulitis of right leg Procedures MR Ankle w/ and w/o Contrast Right Marisabel Michel MD [address] [place] [address] Phone: tel: fax: [address] Phone: tel: fax: Referral ID Status Reason Start Date Expiration Date V isits Requested Visits Authorized [id number] Canceled 07/19/2024 07/19/2025 1 1 * Imaging (Urgent) - Authorized Specialty Diagnoses / Procedures Referred By Contac t Referred To Contact Radiology Diagnoses Elevated erythrocyte sedimentation rate Acute right ankle pain Cellulitis of right leg Procedures MRI LOWER LEG / TIBIA FIBULA RIGHT W WO CONTRAST Marisabel Michel MD [address] [place] [address] Phone: tel: fax: [address] Phone: tel: fax: Referral ID Status Reason Start Date Expiration Date V isits Requested Visits Authorized [id number] Authorized 07/19/2024 07/19/2025 1 1 Encounter Details Date Type Department Care Team (Late st Contact Info) Description 07/15/2024 Orders Only [facility] MEDICINE [address] [place] [address] Marisabel Michel MD [address] [place] [address] Elevated erythrocyte sedimentation rate (Primary Dx); Cellulitis of lower extremity, unspecified laterality; Abnormal TSH; Fever, unspecified fever cause; Acute right ankle pain; Cellulitis of right leg Social History Tobacco Use Types Packs/Day [...] of this encounter Plan of Treatment Scheduled Orders Name Type Priority Associated Diagnoses Orde r Schedule MRI LOWER LEG / TIBIA FIBULA RIGHT W WO CONTRAST Imaging Urgent Elevated erythrocyte sedimentation rate Acute right ankle pain Cellulitis of right leg Expected: 07/19/2024, Expires: 07/19/2025 MR Ankle w/ and w/o Contrast Right Imaging Urgent Elevated erythrocyte sedimentation rate Acute right ankle pain Cellulitis of right leg Expected: 07/19/2024, Expires: 07/19/2025 documented as of this encounter Procedures Procedure Name Priority Date/Time Associated Diagnosis Comments VITAMIN D,25-OH,TOTAL,IA Routine 08/02/2024 5:05 PM EDT Abnormal TSH SED RATE BY MODIFIED WESTERGREN Routine 08/02/2024 5:05 PM EDT Elevated erythrocyte sedimentation rate Cellulitis of lower extremity, unspecified laterality C-REACTIVE PROTEIN Routine 08/02/2024 5: 05 PM EDT Elevated erythrocyte sedimentation rate Cellulitis of lower extremity, unspecified laterality TSH Routine 08/02/2024 5:05 PM EDT Abnormal TSH PTH, INTACT WITHOUT CALCIUM Routine 08/02/2024 5:05 PM EDT Abnormal TSH T4, FREE Routine 07/15/2024 3:24 PM EDT Abnormal TSH documented in this encounter Results * Vitamin D, 25-Hydroxy, Total, Immunoassay (08/02/2024 5:05 PM EDT) Vitamin D 25-OH Total 54.6 >30 ng/mL [facility] Comment:Health Based Referen ce Values*< 20 ng/mL [id number] ng/mL Insufficient> 30 ng/mL Sufficient*Ashok SMITH. N Engl J Med. 2007;357:266-280Care must be taken in interpreting Vitamin D results fromdifferent laboratories and methodologies. Published datademonstrated that results from patients undergoinghemodialysis may show a negative bias when tested withvarious automated 25-OH vitamin D assays when compared toLC-MS/MS.When testing samples from patients whose predominant form ofVitamin D is Vitamin D2, such as patients receiving VitaminD2 supplementation, results that are subtherapeutic shouldbe confirmed with another method such as LC-MS/MS. Blood Venous blood specimen / Unknown 08/02/2024 5:05 PM EDT 08/02/2024 5:10 PM EDT Marisabel Michel MD LAB BLOOD ORDERABLES Final Resul t Performing Organization Address [facility] Co de Phone Number [facility] [address] [place] [phone] * (ABNORMAL) PTH, Intact Without Calcium (08/02/2024 5:05 PM EDT) Parathyroid Hormone, Intact 78.5(H) 8.7 - 77.1 pg/mL [facility] Blood Venous blood specimen / Unknown 08/02/2024 5:05 PM EDT 08/02/2024 5:10 PM EDT Marisabel Michel MD LAB BLOOD ORDERABLES Final Resul t Performing Organization Address [facility]/ZIP Co de Phone Number [facility] [address] [place] [phone] * TSH (08/02/2024 5:05 PM EDT) Thyroid Stimulating Hormone 2.46 0.32 - 4.0 uIU/mL [facility] Comment:TSH 3rd Generation ( [facility]) Blood Venous blood specimen / Unknown 08/02/2024 5:05 PM EDT 08/02/2024 5:10 PM EDT Marisabel Michel MD LAB BLOOD ORDERABLES Final Resul t Performing Organization Address City/[facility]/ZIP Co de Phone Number [facility] [address] [place] [phone] * (ABNORMAL) Sed Rate by Modified Westergren (08/02/2024 5:05 PM EDT) Erythrocyte Sedimentation Rate 71(H) 0 - 20 MM/HR [facility] Comment:Patients with polycy themia and many hemoglobin abnormalitiesmay have depressed sed rates whereas patients with anemiamay have elevated sed rates. Blood Venous blood specimen / Unknown 08/02/2024 5:05 PM EDT 08/02/2024 5:10 PM EDT Marisabel Michel MD LAB BLOOD ORDERABLES Final Resul t Performing Organization Address [facility] Co de Phone Number [facility] [address] [place] [phone] * (ABNORMAL) C-reactive Protein (08/02/2024 5:05 PM EDT) C Reactive Protein 1.90(H) < or = 0.50 mg/dL [facility] Blood Venous blood specimen / Unknown 08/02/2024 5:05 PM EDT 08/02/2024 5:10 PM EDT Marisabel Michel MD LAB BLOOD ORDERABLES Final Resul t Performing Organization Address [facility] Co de Phone Number [facility] [address] [place] [phone] * T4, Free (07/15/2024 3:24 PM EDT) Free T4 (Free Thyroxine) 1.45 0.71 - 1.85 ng/dL [facility] Blood Venous blood specimen / Unknown 07/15/2024 3:24 PM EDT 07/15/2024 3:26 PM EDT us Marisabel Michel MD LAB BLOOD ORDERABLES Final Resul t [facility] [address] [place] [phone] documented in this encounter Visit Diagnoses Diagnosis Elevated erythrocyte sedimentation rate- Primary Elevated sedimentation rate Cellulitis of lower extremity, unspecified laterality Abnormal TSH Fever, unspecified fever cause Acute right ankle pain Cellulitis of right leg documented in this encounter Additional Health Concerns Assessment Noted Time PHQ-9 Depression Total Score: 0 03/29/20 24 3:23 PM EDT documented as of this encounter Care Teams Customer Marketing Intern Relationship Specialty Start Date End Date Marisabel Michel MD [address] [place] [phone] PCP - General Family Medicine 09/04/11 documented as of this encounter
--- OUTSIDE RECORDS SUMMARY | 2025-03-14 16:58 | XMS_ITS | Encounter Summary ---
Author Organization [employer] Address [address] [facility] 7t [place] [address] Care Team Providers Care Genetic Coordinator Name Role Phone Marisabel Michel MD Primary Care Provider [phone] Encounter Details Date Type Department Care Team ([facility] st Contact Info) Description 10/04/2024 Orders Only [facility] MEDICINE [address] [place] [address] Lexie Lopez, PharmD [address] [place] [address] Social History Tobacco Use Types Packs/Day Years [...] documented as of this encounter Care Teams Genetic Coordinator Relationship Specialty Start Date End Date Marisabel Michel MD [address] [place] [address] PCP - General Family Medicine 09/04/11 documented as of this encounter
--- OUTSIDE RECORDS SUMMARY | 2025-03-14 16:58 | XMS_ITS ---
Author Organization [facility] Address [address] [place] [address] Care Team Providers Care Automotive Glass Technician Name Role Phone Marisabel Michel Primary Care Provider UnavailYoni Deng Unavailable [phone] Halle Bustillo Unavailable [phone] REASON FOR VISIT Seen Sooner Encounters En[facility] [address] 03/03/[facility]25 Halle Bustillo Plan Of Treatment Next Appt Details Provider Name:Yoni Bhatt , 05/08/2025 01:30:00 PM, [address] [place] [address], [place], [phone], Progress Notes * Radha JACKDOB: 1 (54 yo F)Acc No.[id number]:03/03/2025 Progress Note Patient:?Radha JACK Provider:?Halle Bustillo DPM :1970???Age:54 Y???Sex:Female D ate:03/03/2025 Address:[address] [place] [address] Pcp:Marisabel Michel Subjective: * Chief Complaints: * ???1. Seen Sooner. * Medical History:? Objective: * Vitals:? Assessment: Plan: * Treatment: * Images: * The named appointment provid er may or may not be the originator of this progress note, and it is not deemed complete until electronically signed by the appointment provider. Sign off status: Pending * Provider:Masood Bustillo DPM Date:?0 03/03/2025 Generated for Deny lou/Klaudia/David on:?03/14/2025 04:58 PM EDT
--- OUTSIDE RECORDS SUMMARY | 2025-03-14 16:58 | XMS_ITS | Encounter Summary ---
Author Organization [employer] Address [address] [place] [address] Care Team Providers Care Medical Science Liaison Name Role Phone Marisabel Michel MD Primary Care Provider [phone] Encounter Details Date Type Department Care Team ([facility] st Contact Info) Description 03/18/2024 Orders Only [facility] MEDICINE [address] [place], [place] [phone] Marisabel Michel MD [address] [place], [place] [phone] Social History Tobacco Use Types Packs/Day Years Used Date Smoking Tobacco: Never Passive Smoke Exposure: Never Smokeless Tobacco: Never Depression Answer Date Recorded Patient Health Questionnaire-9 Score 2 02/24/2023 Housing Stability Answer Date Recorded What is your housing situation today? I have dianemarc reinoso 09/09/[address] you [...] Procedure Name Priority Date/Time Associated Diagnosis Comments BI MAMMOGRAM SCREENING TOMOSYNTHESIS BILATERAL Routine 03/21/2024 1:10 PM EDT documented in this encounter Results * BI Mammogram Screening Tomosynthesis Bilateral (03/21/2024 1:10 PM EDT) Anatomical Region Laterality Modality Breast Bilateral Mammography 03/21/2024 1:10 PM EDT Narrative 04/17/2024 6:32 AM EDT ? [facility] ? [address] ?[place] [address] ? Mammography Report ? Signed ? Patient: Radha Kimball ?MR#: ?? [id number] ? : 1970 ?Acct:[id number] ? Age/Sex: 53 / F ?ADM Date: 03/21/24 ? Loc: HO.MAMMO ? Attending Dr: Marisabel Michel MD ? Ordering Physician: Marisabel Michel MD ?Results: 1Negative ? Date of Service: 03/21/24 ?Follow Up: 1 Year From Orig ?? inal Mammogram ? Procedure(s): MM tomosynthesis screening BI ?? Accession Number(s): [id number] ? cc: Marisabel Michel MD ? EXAMINATION: ?? MM SCREENING DIGITAL BREAST TOMOSYNTHESIS, BILATERAL ? CLINICAL INFORMATION: ? Screening. Asymptomatic. ? COMPARISON: ?? Mammography: This study is compared with prior exams dating back to ?? 2018. ? TECHNIQUE: ?? Digital breast tomosynthesis is performed in both the craniocaudal and ?? mediolateral oblique views along with computer-aided detection (CAD). ?? Synthesized 2D images are generated from the tomosynthesis. ? FINDINGS: ?? There are scattered areas of fibroglandular density (ACR BI-RADS breast ?? composition Category b). ? There are no significant masses, abnormal calcifications, or other ?? abnormalities. ? MM/MM tomosynthesis screening BI ?? IMPRESSION: ?? No mammographic evidence of malignancy. ? ASSESSMENT: ? BI-RADS BI-RADS 1 - Negative ? RECOMMENDATION: ?? Routine annual mammography screening. ? 1 year F/U ? This examination should not preclude the clinical evaluation of a ?? suspicious palpable abnormality. ? This patient's information was entered into a reminder system with a ?? target due date for their next mammogram. ? Dictated By: ?Stephanie Garcia MD ? Signed By: ?<Electronically signed by Stephanie Garcia MD in OV> ? 04/17/24628 ? DD/ 1310 ? TD/TT: ? Assistant Women'S Basketball Coach: ? Procedure Note Clarence, Sana - 04/17/2024 [facility] [address] [place] [address] Mammography Report Signed Patient: Shani Kimball#: [id number] : 1970Acct:[id number] Age/Sex: 53 / FADM Date: 03/21/24 Loc: HO.MAMMO Attending Dr: Marisabel Michel MD Ordering Physician: Marisabel Michel MDResults: 1Negative Date of Service: 03/21/24Follow Up: 1 Year From Orig ina Mammogram Procedure(s): MM tomosynthesis screening BI Accession Number(s): [id number] cc: Marisabel Michel MD EXAMINATION: MM SCREENING DIGITAL BREAST TOMOSYNTHESIS, BILATERAL CLINICAL INFORMATION: Screening. Asymptomatic. COMPARISON: Mammography: This study is compared with prior exams dating back to 2019. TECHNIQUE: Digital breast tomosynthesis is performed in both the craniocaudal and mediolateral oblique views along with computer-aided detection (CAD). Synthesized 2D images are generated from the tomosynthesis. FINDINGS: There are scattered areas of fibroglandular density (ACR BI-RADS breast composition Category b). There are no significant masses, abnormal calcifications, or other abnormalities. MM/MM tomosynthesis screening BI IMPRESSION: No mammographic evidence of malignancy. ASSESSMENT: BI-RADS BI-RADS 1 - Negative RECOMMENDATION: Routine annual mammography screening. 1 year F/U This examination should not preclude the clinical evaluation of a suspicious palpable abnormality. This patient's information was entered into a reminder system with a target due date for their next mammogram. Dictated By: Stephanie Garcia MD Signed By: <Electronically signed by Stephanie Garcia MD in OV> 04/17/24 0629 DD/ 1310 TD/TT: Assistant Women'S Basketball Coach: Marisabel Michel MD IMG BI PROCEDURES Final Result documented in this encounter Visit Diagnoses Not on filedocumented in this encounter Additional Health Concerns Assessment Noted Time PHQ-9 Depression Total Score: 2 02/25/20 23 1:12 PM EDT documented as of this encounter Care Teams Medical Science Liaison Relationship Specialty Start Date End Date Marisabel Michel MD [address] [place] [phone] PCP - General Family Medicine 09/04/11 documented as of this encounter
--- OUTSIDE RECORDS SUMMARY | 2025-03-14 16:58 | XMS_ITS | Encounter Summary ---
Author Organization [employer] Address [address] [place] [address] Care Team Providers Care Locomotive Mechanic Apprentice Name Role Phone Marisabel Michel MD Primary Care Provider [phone] Encounter Details Date Type Department Care Team (Late st Contact Info) Description 01/08/2023 Orders Only [facility] MEDICINE [address] [place], [place] [phone] Marisabel Michel MD [address] [place] [address] Allergic rhinitis due to other allergic trigger, unspecified seasonality (Primary Dx); Moderate persistent asthma without complication Social History Tobacco Use Types Packs/Day Years [...] as of this encounter Visit Diagnoses Diagnosis Allergic rhinitis due to other allergic trigger, unspecified seasonality- Primary Moderate persistent asthma without complication documented in this encounter Care Teams Locomotive Mechanic Apprentice Relationship Specialty Start Date End Date Marisabel Michel MD [address] [place] [phone] PCP - General Family Medicine 09/04/11 documented as of this encounter
--- OUTSIDE RECORDS SUMMARY | 2025-03-14 16:59 | XMS_ITS | Encounter Summary ---
Author Organization [employer] Address [address] [place] [address] Care Team Providers Care Precast Worker Name Role Phone Marisabel Michel MD Primary Care Provider [phone] Encounter Details Date Type Department Care Team (Late st Contact Info) Description 08/05/2024 Orders Only [facility] [address] [place], [place] [phone] Marisabel Michel MD [address] [place] [address] Acute right ankle pain (Primary Dx); Cellulitis of right lower leg; Anemia, unspecified type; Hypokalemia Social History Tobacco Use Types Packs/Day Years [...] Type Priority Associated Diagnoses Orde r Schedule Vitamin B12 (Cobalamin) and Folate Panel, Serum Lab Routine Anemia, unspecified type Expected: 08/15/2024, Expires: 08/05/2025 Pathologist Review - CBC Lab Routine Anemia, unspecified type Expected: 08/15/2024, Expires: 08/05/2025 documented as of this encounter Procedures Procedure Name Priority Date/Time Associated Diagnosis Comments CBC WITH AUTO DIFFERENTIAL Routine 08/30/2024 4:50 PM EDT Anemia, unspecified type IRON AND TOTAL IRON BINDING CAPACITY Routine 08/30/2024 4:50 PM EDT Anemia, unspecified type SED RATE BY MODIFIED WESTERGREN Routine 08/30/2024 4:50 PM EDT Acute right ankle pain RETICULOCYTE COUNT Routine 08/30/2024 4: 50 PM EDT Anemia, unspecified type C-REACTIVE PROTEIN Routine 08/30/2024 4: 50 PM EDT Acute right ankle pain MAGNESIUM Routine 08/30/2024 4:50 PM EDT Hypokalemia FERRITIN Routine 08/30/2024 4:50 PM EDT Anemia, unspecified type BASIC METABOLIC PANEL Routine 08/30/2024 4:50 PM EDT Hypokalemia documented in this encounter Results * (ABNORMAL) Sed Rate by Modified Yonnyergren (08/30/2024 4:50 PM EDT) Erythrocyte Sedimentation Rate 56(H) 0 - 20 MM/HR [facility] Comment:Patients with polycy themia and many hemoglobin abnormalitiesmay have depressed sed rates whereas patients with anemiamay have elevated sed rates. Blood Venous blood specimen / Unknown 08/30/2024 4:50 PM EDT 08/30/2024 5:01 PM EDT us Marisabel Michel MD LAB BLOOD ORDERABLES Final Resul t [facility] [address] [place] [phone] * (ABNORMAL) Basic Metabolic Panel (08/30/2024 4:50 PM EDT) Sodium 140 135 - 145 mmol/L [facility] Potassium 3.6 3.3 - 5.1 mmol/L [facility] Chloride 104 96 - 108 mmol/L [facility] Carbon Dioxide 25 22 - 29 mmol/L [facility] Anion Gap 15 12 - 20 [facility] Urea Nitrogen (BUN) 16 9 - 16 mg/dL [facility] Creatinine, Serum 0.77 0.5 - 1.4 mg/dL [facility] Estimated Glomerular Filt Rate >60 [facility] Comment:NOTE: For -Am erican individuals, multiply the result by 1.210.Chronic Kidney Disease: Estimated GFR < 60 mL/min/1.08m4Euylbq Kidney Disease: Estimated GFR < 15 mL/min/1.73m2 Glucose 93 60 - 115 mg/dL [facility] Calcium 10.3(H) 8.4 - 10.2 mg/dL [facility] Blood Venous blood specimen / Unknown 08/30/2024 4:50 PM EDT 08/30/2024 5:01 PM EDT Marisabel Michel MD LAB BLOOD ORDERABLES Final Resul t Performing Organization Address [facility]/ZIP Co de Phone Number [facility] [address] [place] [phone] * Magnesium (08/30/2024 4:50 PM EDT) Magnesium 2.3 1.6 - 2.6 mg/dL [facility] Blood Venous blood specimen / Unknown 08/30/2024 4:50 PM EDT 08/30/2024 5:01 PM EDT Marisabel Michel MD LAB BLOOD ORDERABLES Final Resul t Performing Organization Address [facility] de Phone Number [facility] [address] [place] [phone] * (ABNORMAL) Reticulocyte Count (08/30/2024 4:50 PM EDT) Pathologist [facility] Reticulocytes Absolute 0.095 0.026 - 0.095 X10*6/uL [facility] Immature Retic Fraction 8.3 3.0 - 15.9 % [facility] Retic HGB Equivalent 31.7 30.0 - 35.0 pg [facility] Reticulocyte Percent 2.1(H) 0.5 - 1.8 % [facility] Blood Venous blood specimen / Unknown 08/30/2024 4:50 PM EDT 08/30/2024 5:01 PM EDT Marisabel Michel MD LAB BLOOD ORDERABLES Final Resul t Performing Organization Address [facility] Co de Phone Number [facility] [address] [place] [address] [phone] * (ABNORMAL) Iron And Total Iron Binding Capacity (08/30/2024 4:50 PM EDT) Iron 38 30 - 160 mcg/dL [facility] Total Iron Binding Capacity 206(L) 228 - 428 mcg/dL [facility] Percent Iron Saturation 18 15 - 50 % [facility] Unsaturated Iron Binding 168 ug/dL [facility] Blood Venous blood specimen / Unknown 08/30/2024 4:50 PM EDT 08/30/2024 5:01 PM EDT Marisabel Michel MD LAB BLOOD ORDERABLES Final Resul t Performing Organization Address City/[facility]/ZIP Co de Phone Number [facility] [address] [place] [phone] * (ABNORMAL) Ferritin (08/30/2024 4:50 PM EDT) Ferritin 283(H) 10 - 250 ng/mL [facility] Blood Venous blood specimen / Unknown 08/30/2024 4:50 PM EDT 08/30/2024 5:01 PM EDT Marisabel Michel MD LAB BLOOD ORDERABLES Final Resul t Performing Organization Address [facility] Co de Phone Number [facility] [address] [place] [phone] * (ABNORMAL) C-reactive Protein (08/30/2024 4:50 PM EDT) C Reactive Protein 1.83(H) < or = 0.50 mg/dL [facility] Blood Venous blood specimen / Unknown 08/30/2024 4:50 PM EDT 08/30/2024 5:01 PM EDT Marisabel Michel MD LAB BLOOD ORDERABLES Final Resul t Performing Organization Address [facility] Co de Phone Number [facility] [address] [place] [phone] * (ABNORMAL) CBC auto differential (08/30/2024 4:50 PM EDT) White Blood Count 9.6 4.8 - 10.8 X10*3/uL [facility] Red Blood Count 4.49 4.20 - 5.50 X10*6/uL [facility] Hemoglobin 12.8 12.0 - 16.0 g/dl [facility] Hematocrit 39.2 37.0 - 47.0 % [facility] Mean Corpuscular Volume 87.3 80.0 - 98.0 fL [facility] Mean Corpuscular Hemoglobin 28.5 27.0 - 33.0 pg [facility] Mean Corpuscular HGB Conc 32.7 31.0 - 35.0 g/dl [facility] Red Cell Distribution Width 13.5 11.0 - 16.0 % [facility] Platelet Count 248 160 - 400 X10*3/uL [facility] Mean Platelet Volume 11.9 9.4 - 12.3 fL [facility] Neutrophils Percent Auto 70.8 45 - 73 % [facility] Imm Gran Pct Auto 0.8(H) 0.0 - 0.4 % [facility] Lymphocytes Percent Auto 17.2(L) 20 - 40 % [facility] Monocytes Percent Auto 6.7 2 - 11 % [facility] Eosinophils Percent Auto 4.0 0 - 4 % [facility] Basophils Percent Auto 0.5 0 - 2 % [facility] NRBC Pct Auto 0.0 0.0 - 0.2 /100WBC [facility] Neutrophils Absolute Auto 6.8 2.0 - 8.3 x10*3/uL [facility] Imm Gran Abs Auto 0.08(H) 0.00 - 0.03 X10*3/uL [facility] Lymphocytes Absolute Auto 1.7 1.2 - 4.9 X10*3/uL [facility] Monocytes Absolute Auto 0.6 0.1 - 1.2 X10*3/uL [facility] Eosinophils Absolute Auto 0.4 0.0 - 0.4 X10*3/uL [facility] Basophils Absolute Auto 0.1 0.0 - 0.2 X10*3/uL [facility] NRBC Abs Auto 0.000 0.0 - 0.012 X10*3/uL [facility] Blood Venous blood specimen / Unknown 08/30/2024 4:50 PM EDT 08/30/2024 5:01 PM EDT us Marisabel Michel MD LAB BLOOD ORDERABLES Final Resul t [facility] [address] [place] [phone] documented in this encounter Visit Diagnoses Diagnosis Acute right ankle pain- Primary Cellulitis of right lower leg Anemia, unspecified type Hypokalemia Hypopotassemia documented in this encounter Additional Health Concerns Assessment Noted Time PHQ-9 Depression Total Score: 0 03/29/20 24 3:23 PM EDT documented as of this encounter Care Teams Precast Worker Relationship Specialty Start Date End Date Marisabel Michel MD [address] [place] [phone] PCP - General Family Medicine 09/04/11 documented as of this encounter
--- OUTSIDE RECORDS SUMMARY | 2025-03-14 16:59 | XMS_ITS | Encounter Summary ---
Author Organization [employer] [facility] Address [address] [place] [address] Care Team Providers Care Bowling Teacher Name Role Phone Marisabel Michel MD Primary Care Provider [phone] Reason for Referral * Consultation (Routine) - Closed Specialty Diagnoses / Procedures Referred By Contac t Referred To Contact Physical Therapy Diagnoses Cerebral palsy, unspecified type (CMS/HCC) Wheelchair dependence Marisabel Michel MD [address] [place] [address] Phone: tel: fax: Referral ID Status Reason Start Date Expiration Date V isits Requested Visits Authorized [id number] Closed Specialty Services Required 11/25/2024 11/25/2025 1 1 * Consultation (Routine) - Closed Specialty Diagnoses / Procedures Referred By Contcarlos t Referred To Contact Occupational Therapy Diagnoses Cerebral palsy, unspecified type (CMS/HCC) Wheelchair dependence Marisabel Michel MD [address] [place] [address] Phone: tel: fax: Referral ID Status Reason Start Date Expiration Date V isits Requested Visits Authorized [id number] Closed Specialty Services Required 11/25/2024 11/25/2025 1 1 Encounter Details Date Type Department Care Team (Late st Contact Info) Description 11/25/2024 Orders Only [facility] [address] [place] [address] Marisabel Michel MD [address] [place] [address] Cerebral palsy, unspecified type (CMS/HCC) (Primary Dx); Wheelchair dependence; Hordeolum internum left lower eyelid Social History Tobacco Use Types Packs/Day Years [...] Associated Diagnoses Orde r Schedule Referral to Occupational Therapy Outpatient Referral Routine Cerebral palsy, unspecified type (CMS/HCC) Wheelchair dependence Expected: 11/25/2024 (Approximate), Expires: 11/25/2025 Referral to Physical Therapy Outpatient Referral Routine Cerebral palsy, unspecified type (CMS/HCC) Wheelchair dependence Expected: 11/25/2024 (Approximate), Expires: 11/25/2025 documented as of this encounter Visit Diagnoses Diagnosis Cerebral palsy, unspecified type (CMS/HCC)- Primary Wheelchair dependence Hordeolum internum left lower eyelid documented in this encounter Additional Health Concerns Assessment Noted Time PHQ-9 Depression Total Score: 0 03/29/20 24 3:23 PM EDT documented as of this encounter Care Teams Bowling Teacher Relationship Specialty Start Date End Date Marisabel Michel MD [address] [place] [phone] PCP - General Family Medicine 09/04/11 documented as of this encounter
--- OUTSIDE RECORDS SUMMARY | 2025-03-14 16:59 | XMS_ITS | Encounter Summary ---
Author Organization [employer] Address [address] [place] [address] Care Team Providers Care Paperhanger Contractor Name Role Phone Marisabel Michel MD Primary Care Provider [phone] Reason for Visit * Reason Comments Med Refill Encounter Details Date Type Department Care Team ([facility] st Contact Info) Description 10/08/2023 Refill [facility] [address] [place], [place] [phone] Angela Kirkland DO [address] [place], [place] [phone] Osteopenia, unspecified location Social History Tobacco Use Types Packs/Day Years [...] t he electric, gas, oil or water [employer] threatened to shut off services in your [...] as of this encounter Visit Diagnoses Diagnosis Osteopenia, unspecified location documented in this encounter Additional Health Concerns Assessment Noted Time PHQ-9 Depression Total Score: 2 02/25/20 23 1:12 PM EDT documented as of this encounter Care Teams Paperhanger Contractor Relationship Specialty Start Date End Date Marisabel Michel MD [address] [place] [address] PCP - General Family Medicine 09/04/11 documented as of this encounter
--- OUTSIDE RECORDS SUMMARY | 2025-03-14 16:59 | XMS_ITS | Data Portability ---
Author Organization [employer] Address [address] [place] [address] Care Team Providers Care Extension Service Agent Name Role Phone HIM CCA OTHER DENA KAN Primary Care Provider Assessment Encounter Date Assessment Date Assessment LastModified by Organization Details LastModified Time 06/26/2024 06/26/2024 As noted, we were called to see this patient regarding concerns of fever. Evaluation in the field was performed by my sweet goods machine operator colleague, as noted above, I provided real-time direction and supervision for this visit. 53 F w cerebral palsy reporting fever since thursday. some nasal congestion, reportedly back pain (seems to be in the R flank). no dysuria. RLE ankle is red but not warm, apparently this is a chronic skin change. UA w nitrites and leuks. suspect UTI. given report of flank pain would benefit from treatment as pyelonephritis. Will admin 1 dose of levaquin today, recommend a 5 day treatment. Urine culture will be sent with sensitivities pending. Impression: fever, UTI Plan: levaquin x 5 days Disposition: We discussed the diagnostic uncertainty of home visits and the risk associated with this. In this case, the patient and I felt this to be an acceptable and reasonable amount of risk given the benefit of avoiding an ED visit. We discussed the need to seek care urgently/emergen tly in the setting of any new or worsening serious symptoms, particularly worsening flank pain, rigors, worsening abdominal pain [email or web address] Not available 06/26/2024 19:34:52 Plan of Treatment Reminders Order Date Submit Date Provider Last Modified By Organization Details Last Modified Time Details Appointments None recorded. Lab culture, urine 2023 08 024 ARTUR [facility] (Centralized Electronic Ordering - All Locations), Patient Can Go To The Location Of Their Choice, [id number] 08/06/202 4 09:59:04 urinalysis, dipstick 2023 024 [email or web address] [facility], [address] [place] [address], [id number] 4 22:16:27 rapid SARS CoV 2 Ag, QL IA, respiratory specimen 2023 024 [email or web address] [facility], [address] [place] [address], [id number] 4 22:16:30 rapid flu (A+B) 2023 024 [facility], [address] [place] [address], [id number] 4 22:16:35 Referral None recorded. Procedures None recorded. Surgeries None recorded. Imaging None recorded. Medication Orders cephalexin 500 mg capsule 2023 024 [facility][id number], [address] [place] [address], [address], 4 20:10:17 ceftriaxone 1 gram solution for injection 2023 024 [id number], [address] [place], [address], 4 19:04:48 lactated Ringers intravenous solution 2023 024 [id number], [address] [place] [address], [address], 4 19:04:48 levofloxaci n 500 mg tablet 2023 024 [email or web address] [facility] #[id number], [address] [place], [address], 4 19:15:51 levofloxaci n 500 mg tablet 2023 024 [email or web address] [facility] #[id number], [address] [place], [address], 4 19:15:51 Keflex 500 mg capsule 2022 023 ARTUR [facility]acy #2071, [address] [place], [address], 19:26:00 cephalexin 500 mg capsule 2022 023 [email or web address] [facility] #[id number], [address] [place], [address], 18:46:33 Patient TargetsNo targets recorded. Patient InstructionsNo instructions recorded. Reason for Referral None Reported. Results Created Date Observation Date Name Description Value Unit Range Abnormal Flag Note LastModifiedBy Organization Detail LastModifiedTime 06/26/2006/28/2024 URINE CULTU RE, VIPINI NE urine culture, routine Final report Not Available [facility] ([facility]) [address] [place], [address], 06/28/2024 08:08:50 06/26/20 24 06/28/2024 URINE CULTU RE, VIPINI NE result 1 COMMEN T Mixed uroge nital rimma 50,00 0-100 ,000 colon y formi ng units per mL Not Available [facility] ([facility]) [address] [place], [address], 06/28/2024 08:08:50 Result Notes None recorded. Medical Equipment None Reported. Allergies Allergen ID Allergen Name Allergen Category Reaction Reaction Severity Criticality Documentation Date Start Date Code Code System Note Provider Name and Address Organization Details Recorded Time 1866 Bactrim medicatio n Not available Not available unabletoasse 01/02/2023 68352 9 RxNorm Naomie morrell Noosh, [employer] 3 11:05:23 1867 Symbicort medicatio n Not available Not available unabletoasse 01/02/2023 50313 8 RxNorm CLEMENCIA Lynch, [facility] 3 11:06:21 Medications Name Sig Start Date Stop Date Status Note LastModified by Organization Details LastModified Time furosemide 40 mg tablet active Not Available Not Available Not Available clotrimazole 10 mg leonardo DISSOLVE ONE TABLET IN MOUTH 3 TIMES A DAY. DO NOT CHEW active Not Available Not Available No t Available terconazole 0.4 % vaginal cream INSERT 1 APPLICATORF UL BY VAGINAL DAILY X7 DAYS AT BEDTIME ALSO APPLY AROUND THE VULVAR AREA active Not Available Not Available Not Available nystatin 100,000 unit/mL oral suspension SWISH AND SWALLOW 5MLS 4 TIMES DAILY FOR 10 DAYS active Not Available Not Available Not Available naproxen 375 mg tablet TOME 1 TABLETA POR VIA ORAL DOS VECES AL MYAH CUANDO SEA NECESARIO active Not Available Not Available No t Available Vitamin C 500 mg tablet TOME MARIAH TABLETA TODOS LOS D active Not Available Not Available No t Available cetirizine 10 mg tablet TOME 1 TABLETA POR V A ORAL TODOS LOS D active Not Available Not Available No t Available azithromycin 250 mg tablet TAKE 2 TABLETS BY MOUTH DAY 1 THEN TAKE 1 TABLET DAILY FOR 4 MORE DAYS active Not Available Not Available No t Available fluconazole 150 mg tablet TAKE 1 TABLET BY MOUTH 1 TIME FOR 1 DOSE MAY REPEAT IN 1 WEEK IF STILL SYMPTOMATIC active Not Available Not Available Not Available meloxicam 15 mg tablet TOME 1 TABLETA POR V A ORAL TODOS LOS D active Not Available Not Available No t Available prednisone 20 mg tablet TAKE 2 TABLETS BY MOUTH ONCE DAILY WITH FOOD OR MILK active Not Available Not Available No t Available alendronate 70 mg tablet PLEASE SEE ATTACHED FOR DETAILED DIRECTIONS active Not Available Not Available N ot Available alclometason e 0.05 % topical cream APLIQUE AL ARNALDO AFECTADA TOPICALLY TO ARMS AND AXILA active Not Available Not Available No t Available lactated Ringers intravenous solution Inject 500 mL by intravenous route. 2023 active Not Available Not Available Not Avai lable sumatriptan 50 mg tablet TOME MARIAH TABLETA POR VIA ORAL TODOS LOS LOVELL NEEDED active Not Available Not Available No t Available ciprofloxaci n 250 mg tablet TOME 1 TABLETA POR V A ORAL DOS VECES AL D A POR 3 D active Not Available Not Available No t Available ciprofloxaci n 500 mg tablet TOME MARIAH TABLETA CADA 12 HORAS POR 7 D active Not Available Not Available No t Available ceftriaxone 1 gram solution for injection Take 1 g by injection route. 2023 active Not Available Not Available Not Avai lable calcium 500 mg (as calcium carbonate 1,250 mg) tablet TOME MARIAH TABLETA DOS VECES AL D A active Not Available Not Available No t Available Ear Wax Removal Kit 6.5 % drops PLACE 4-5 DROPS ONTO BOTH EARS ONCE DAILY active Not Available Not Available N ot Available amitriptylin e 10 mg tablet TOME 1 TABLETA POR V A ORAL TODOS LOS D AL ACOSTARSE active Not Available Not Available No t Available doxycycline monohydrate 100 mg capsule TOME MARIAH C PSULA TODOS LOS D POR 10 D active Not Available Not Available Not Available cephalexin 500 mg capsule TAKE 1 TAB POR V A ORAL EVERY 6 HOURS BY ORAL ROUTE FOR 7 DAYS. active Not Available Not Available Not Available ferrous sulfate 325 mg (65 mg iron) tablet TOME 1 TABLETA POR V A ORAL TODOS LOS D active Not Available Not Available No t Available nitrofuranto in macrocrystal 100 mg capsule TOME MARIAH C PSULA DOS VECES AL D A CON ALIMENTO POR 7 D active Not Available Not Available N ot Available triamcinolon e acetonide 0.1 % topical ointment APPLY TO LEGS DOS VECES AL D A CUANDO SEA NECESARIO FOR FLARES active Not Available Not Available N ot Available nystatin 100,000 unit/gram topical cream APLIQUE AL ARNALDO AFECTADA DOS VECES AL D A active Not Available Not Available No t Available triamcinolon e acetonide 0.025 % topical ointment PLEASE SEE ATTACHED FOR DETAILED DIRECTIONS active Not Available Not Available N ot Available docusate sodium 100 mg capsule TOME MARIAH C PSULA DOS VECES AL D A active Not Available Not Available No t Available omeprazole 20 mg capsule,dayo yed release TAKE 1 CAPSULE (20 MG) BY MOUTH BEFORE BREAKFAST AND BEFORE EVENING MEAL. DO NOT CRUSH OR CHEW. active Not Available Not Available No t Available Banophen 25 mg capsule TOME 2 C PSULAS CADA SEIS HORAS active Not Available Not Available N ot Available pseudoephedr ine 30 mg tablet TOME DOS TABLETAS POR V A ORAL CADA OCHO HORAS POR 10 D active Not Available Not Available Not Available montelukast 10 mg tablet TOME MARIAH TABLETA POR V A ORAL AL ACOSTARSE active Not Available Not Available No t Available hydroxyzine HCl 25 mg tablet TOME MARIAH TABLETA CADA OCHO HORAS active Not Available Not Available No t Available ammonium lactate 12 % topical cream APPLY TO LEGS DAILY active Not Available Not Available N ot Available lisinopril 5 mg tablet TAKE 0.5 TABLET (2.5 MG) BY MOUTH IN THE MORNING. active Not Available Not Available No t Available furosemide 20 mg tablet TOME MARIAH TABLETA POR V A ORAL TODOS LOS D active Not Available Not Available No t Available gabapentin 100 mg capsule TAKE 1 CAPSULE BY MOUTH EVERY DAY @ BEDTIME MAY TAKE 2 CAPSULES IN 1 WK IF PAIN RELIEF IS INADEQUATE active Not Available Not Available N ot Available levofloxacin 500 mg tablet TAKE 1 TABLET EVERY 24 HOURS BY ORAL ROUTE active Not Available Not Available N ot Available amoxicillin 875 mg-potassium clavulanate 125 mg tablet TOME 1 TABLETA POR V A ORAL CADA 12 HORAS AFTER MEALS FOR 10 DAYS active Not Available Not Available No t Available Ventolin HFA 90 mcg/actuatio n aerosol inhaler TOME DOS INHALACIONE S POR VIA ORAL CADA CUATRO HORAS CUANDO SEA NECESARIO active Not Available Not Available No t Available ciclopirox 0.77 % topical cream APLIQUE AL ARNALDO AFECTADA DOS VECES AL D A active Not Available Not Available No t Available Vitamin D3 25 mcg (1,000 unit) capsule TOME 1 C PSULA POR V A ORAL TODOS LOS D active Not Available Not Available No t Available nitrofuranto in monohydrate/ macrocrystal s 100 mg capsule TOME 1 C PSULA POR V A ORAL EN LA MA QUYEN AND AL ACOSTARSE POR 5 D active Not Available Not Available N ot Available Flovent HFA 220 mcg/actuatio n aerosol inhaler TOME DOS INHALACIONE S POR V A ORAL DOS VECES AL D A active Not Available Not Available No t Available Alaway 0.025 % (0.035 %) eye drops INSTILL 1 DROP INTO THE AFFECTED EYE(S) TWICE A DAY 50 active Not Available Not Available No t Available diclofenac 1 % topical gel USE DIRECTED 2 TIMES A DAY active Not Available Not Available Not Available Breo Ellipta 200 mcg-25 mcg/dose powder for inhalation INHALE 1 PUFF BY MOUTH DAILY FOR 30 DAYS active Not Available Not Available Not Available Flowflex COVID-19 Antigen Home Test kit USE DIRECTED active Not Available Not Available No t Available Paxlovid 300 mg (150 mg x 2)-100 mg tablets in a dose pack TAKE 3 TABLETS BY MOUTH 2 TIMES DAILY FOR 5 DAYS active Not Available Not Available N ot Available Vitals Date Recorded Respiratory rate Heart rate Body temperature Oxygen saturation Oxygen saturation in Arterial blood by Pulse oximetry Systolic blood pressure Diastolic blood pressure Provider Name and Address Organization Details Last Updated DateTime 3 16 /min 87 /min 97.7 [degF] 96 % 96 % 151 mm[Hg] 104 mm[Hg] Not Available [employer] 3 17:13:14 Date Recorded Heart rate Oxygen saturation Oxygen saturation in Arterial blood by Pulse oximetry Body height Body weight Respiratory rate Body temperature Systolic blood pressure Diastolic blood pressure Provider Name and Address Organization Details Last Updated DateTime 3 76 /min 98 % 98 % 160.02 cm 53151.9 28 g 16 /min 98.2 [degF] 150 mm[Hg] 92 mm[Hg] Not Available [employer] 3 19:23:30 Date Recorded Oxygen saturation Oxygen saturation in Arterial blood by Pulse oximetry Respiratory rate Body temperature Heart rate Systolic blood pressure Diastolic blood pressure Provider Name and Address Organization Details Last Updated DateTime 4 96 % 96 % 16 /min 98.5 [degF] 97 /min 118 mm[Hg] 76 mm[Hg] Not Available [employer] 4 19:11:28 Date Recorded Body temperature Respiratory rate Oxygen saturation Oxygen saturation in Arterial blood by Pulse oximetry Heart rate Systolic blood pressure Diastolic blood pressure Provider Name and Address Organization Details Last Updated DateTime 4 99.2 [degF] 16 /min 97 % 97 % 106 /min 137 mm[Hg] 74 mm[Hg] Not Available [employer] 4 18:48:52 Date Recorded Heart rate Body temperature Respiratory rate Oxygen saturation Oxygen saturation in Arterial blood by Pulse oximetry Systolic blood pressure Diastolic blood pressure Provider Name and Address Organization Details Last Updated DateTime 4 90 /min 97.6 [degF] 16 /min 96 % 96 % 90 mm[Hg] 63 mm[Hg] Not Available [employer] 4 18:31:49 Social History None recorded. Functional Status None recorded. Mental Status None recorded. Family History Nothing Reported. Medical History No medical history recorded. Gynecological HistoryNo gynecological history recorded. Obstetrics History GPAL:G 0 P 0 0 0 0 Past Encounters Encounter ID Performer Location Encounter Start Date Encounter Closed Date Diagnosis/Indication Diagnosis SNOMED-CT Code Diagnosis ICD10 Code Diagnosis Note [id number] [facility] [address] [place] [id number] 04/26/2022 12:48:38 07/22/2022 11:34:29 Acute urinary tract infection 745802021 N39.0 51 year old female being evaluated for 2 days of dysuria and bilateral flank pain. Per data gathered by sweet goods machine operator, patient with normal vital signs, able to tolerate PO, with positive urine dip. Reports last UTI was 3 months ago, felt the same as current symptoms, and was treated with ciprofloxa sam.Will send urine for culture, and empiricall y treat as uncomplica imcki with Cipro 250 mg BID x 3 days. [id number] Megan Willard MD Main - [address] [phone] 08/23/2022 15:32:23 08/25/2022 14:41:53 COVID-19 [id number] U07.1 COVID (+). mild tachypnea and cough +wheeze. no increased WOB. prescribed paxlovid, deferring oral steroids given unclear benefit in context of covid. recommende d continued adherence to maintenanc e inhalers. [id number] Micheline Schaeffer MD Main - [address] [id number] 12/31/2022 11:46:11 01/02/2023 10:01:19 Increased frequency of urination [id number] R35.0 This 52-year-ol d female called her PCP today complainin g of dysuria, urinary frequency, back and pelvic pain for several days. Her PCP requested visit by Leslye. She has a history of a neurogenic bladder and frequent UTIs. Her U/A was negative. I ordered a U/C to be sent to [facility]. She will follow-up with her PCP. The patient agreed with this plan. [id number] Froy Chaves MD Main - [address] [id number] 01/13/2023 18:35:24 01/15/2023 16:38:46 Pruritus of vagina [id number] L29.3 [facility]. She had a negative urine dip but the culture grew back bacteria. She was treated with Cipro for a week. She continues to have symptoms but now reports vaginal itching. UA reviewed and no evidence of UTI. Will send this for culture, although doubt bacterial process. Will treat empiricall y for vaginal candidiasi s. [id number] Neisha Mario MD [facility] - [facility] [address] [place] [id number] 02/04/2023 20:31:29 02/06/2023 11:05:02 Respiratory tract congestion and cough [id number] R05.9 [id number] Geena Slater MD [facility] - [facility] [address] [place] [id number] 02/12/2023 16:08:06 02/16/2023 12:55:21 Cellulitis of lower limb [id number] L03.119 right lower leg s/p animal scratch - w/ venous stasis- advised to elevate- woudn care done by medic- cleansed- applied dsd w. patient's neosporin- reports very prone to vaginal yeast infection with any antibiotic - denies hx MRSA- advised to f/u with pcp at the beginning of next week- f develops increasing erythema or fever while on antibiotic s to call for re eval at once. [id number] Chhaya Lovett MD [facility] [address] [place] [id number] 04/20/2023 16:36:23 04/21/2023 12:00:18 Cellulitis [id number] L03.90 [id number] SANDRA BROUSSARD MD [facility] [address] [place] [id number] 06/24/2023 15:28:26 06/25/2023 12:16:09 Candidal vulvovaginitis [id number] B37.31 [id number] Froy Chaves MD [facility] [address] [place] [id number] 08/21/2023 17:13:09 08/22/2023 11:34:46 Acute cystitis 07486957 N30.01 Patient reports urinary frequency, burning, and urgency consistent with her typical UTI symptoms. No history of MDR infections in the past. No systemic signs/symp toms to suggest sepsis. Plan for empiric treatment and outpatient follow-up as needed. [id number] Froy Chaves MD [facility] [address] [place] [id number] 10/12/2023 19:23:25 10/13/2023 10:50:43 Cellulitis of lower limb [id number] L03.119 Patient reports being scratched (NOT bitten) by the dog, now with some surroundin g erythema. Notably does have some venous stasis changes bilaterall y but with some worsened edema. Given risk of progressio n, will treat empiricall y for cellulitis . Advised close PCP follow-up for wound check. [id number] Hang Olsen MD [facility] [address] [place] [phone] 06/26/2024 19:11:26 06/26/2024 22:29:47 Acute urinary tract infection [id number] N39.0 fever since 06/22, no features of sepsis at this time. Will plan for 5 day treatment w levaquin. [id number] Froy Chaves MD [facility] [address] [place] [id number] 07/12/2024 18:48:44 07/12/2024 21:13:42 Cellulitis of right lower limb [id number] L03.115 Patient with a history of cellulitis presenting with similar. Slight tachycardi a and low grade temperatur e is concerning for developing infection. Given systemic symptoms, will treat with a dose of ceftriaxon e while awaiting rx from pharmacy. Reviewed return precaution s and discussed low threshold to go to ED if symptoms worsen given potential for sepsis. [id number] Marilee Boo MD [facility] - [facility] [address] [place] [id number] 07/18/2024 18:31:36 07/18/2024 23:37:59 Cellulitis of lower limb [id number] L03.119 53 year old female being evaluated for R lower extremity cellulitis . Patient previously treated Ceftriaxon e followed by 7 days of keflex, along with lasix, with subsequent ly worsening symptoms. Patient denies fever/chil ls, and is eating and drinking normally, but describes worsening pain of her R leg. Exam notable for BP 90/63 (historica lly 130's/70's ), HR 90, with otherwise normal vital signs, R lower extremity edematous, diffusely erythemato us and tender to palpation compared with L leg. Differenti al includes worsening cellulitis , at risk of sepsis given soft pressures today, cannot rule out concomitan t DVT given the degree of swelling compared with contralate ral leg. Recommend hospital transfer for IV antibiotic s and additional work up if indicated. I have reviewed and agree with the assessment and plan as documented by the sweet goods machine operator. I provided real-time medical direction for this encounter and was immediatel y available to provide additional phone-base d assistance as needed. We discussed the diagnostic uncertaint y of home visits and associated risks. We discussed the need to seek care urgently/e mergently in the setting of any new or worsening symptoms. Health Concerns Section Related Observation LastModified by Organization Detai ls LastModified Time None Recorded Concern Status LastModified by Organization Details LastModified Time None Recorded Advance Directives Directive None Recorded Payers Encounter Date Sequence Insurance Name Policy Number Policy Cabrera Covered Member ID Cabrera Member ID Guarantor Name 08/21/2023 1 [facility] - DOS ON OR AFTER 2023 - DUAL ELIGIBLE - SKILLED NURSING OPTIONS AND ONE CARE (MEDICARE REPLACEMENT/ADV ANTAGE - HMO) Radha Vera [id number] Radha Vera 10/12/2023 1 [facility] [employer] - DOS ON OR AFTER 2023 - DUAL ELIGIBLE - SKILLED NURSING OPTIONS AND ONE CARE (MEDICARE REPLACEMENT/ADV ANTAGE - HMO) Radha Vera [id number] Radha Vera 06/26/2024 1 [facility] [employer] - DOS ON OR AFTER 2023 - DUAL ELIGIBLE - SKILLED NURSING OPTIONS AND ONE CARE (MEDICARE REPLACEMENT/ADV ANTAGE - HMO) Radha Vera [id number] Radha Vera 07/12/2024 1 [facility] [employer] - DOS ON OR AFTER 2023 - DUAL ELIGIBLE - SKILLED NURSING OPTIONS AND ONE CARE (MEDICARE REPLACEMENT/ADV ANTAGE - HMO) Radha Vera [id number] Radha Vera 07/18/2024 1 [facility] [employer] - DOS ON OR AFTER 2023 - DUAL ELIGIBLE - SKILLED NURSING OPTIONS AND ONE CARE (MEDICARE REPLACEMENT/ADV ANTAGE - HMO) Radha Vera [id number] Radha Chuy Notes Date Note Type Note Provider Name and Address Organization Details Recorded Time 08/21/2023 text/html HPI: cerebral palsy ................... ................... ................... ................... ................... ................... ................... ........ [facility] Nursing Assessment: Comments: Pt has urinary symptoms, burning with urination , low back pain, frequency ................... ................... ................... ................... ................... ................... ................... ........ Horse Buyer Note From Luis Carlos Tao: [facility] 2 arrives to find caox4 52 year old female seated in wheelchair in no apparent distress. Patient presents with patent airway, normal pulse, and normal respirations. Patients skin is warm, pink, dry, bilateral clear lung sounds, no notable deformities, pupils equal, round, reactive to light, no noted tracheal deviation or jugular venous distension, equal chest rise and fall, abdomen soft non-tender. Patient denies any pain, dizziness, shortness of breath, or nausea. Patient reports burning sensation when urinatingx3 days as well as frequent urination. Vitals taken as noted. UA analyzed. [facility] orders 500mg of keflex PO. Orders fulfilled. Prescription sent to pharmacy. [facility] 2 clear Horse Buyer Allergies: Trimethoprim-Sulfam ethoxazole ................... ................... ................... ................... ................... ................... ................... ........ Disposition: Fulfilled Froy Chaves MD [address] [facility],[address], [place], [address], [employer] 08/21/2023 18:46:35 10/12/2023 text/html HPI: Call to Radha Vera to triage below. States on Thursday dog was playing around and scratch patient on right lower leg. Has been applying triple abx and keeping area clean . Draining clear fluid. Per pt pet up o date with rabies vaccine. Last Td for pt 2020. Pt states gauze covering is soaked with fluid within 1 hour. No pus. Mild tenderness to touch. No bleeding. Advised of disposition per clear triage. [facility] need for prophylactic abx to avoid severe infection due to hx of venous stasis of lower extremities. ................... ................... ................... ................... ................... ................... ................... ........ [facility] Nursing Assessment: Comments: Reviewed - Kristian LAMA ................... ................... ................... ................... ................... ................... ................... ........ Baseline Information: Baseline Hb: 12.9 g/dL Baseline HCt: 39% Baseline Creatinine: 0.72 mg/dL ................... ................... ................... ................... ................... ................... ................... ........ Horse Buyer Note From Anatoly Rivers: instED visit for female patient with injury from dog. Arrived to patients home where she was seated in wheelchair in kitchen. Pt reports playing with family dog 2 days ago and sustained puncture wound to right lower leg from dogs claws. Pt has some baseline disability, with venous stasis in legs. Sister has been cleaning wound and applying antiseptic. Clear weeping discharge from wound noted. Bandages removed with clear fluid observed to be weeping. Some redness in the area noted. Wound was noted to be cold rather than warm. No signs of pus. Vital signs taken and within normal limits. Pt afebrile. Consulted with [facility] Dr. Neff who prescribed cephalexin. Script send to patients pharmacy with family planning to pick and shovel worker tonight and start 5 day course. Patient education provided. ................... ................... ................... ................... ................... ................... ................... ........ Disposition: Fulfilled Froy Chaves MD [address] [facility],[address], [place], [address], Jukely 10/12/2023 19:48:27 06/26/2024 text/html CRC Nurse Triage Notes (Horace Tran): Chief Complaints: Fever/Chills, Pain PMH: Neurologic (E.G. ALS/MS), COPD/Asthma, Hypertension Allergies: Trimethoprim-Sulfam ethoxazole Comments: Hat Forming Machine Operator verified the member's name//address and phone number. Mbr's sister calling reporting mbr having intermittent fevers since Thursday, Tmax 102F. Sister reports today, temperature up to 102.8F. Mbr today experiencing pain in her back with deep inspiration, chills, and runny nose. Mbr taking Tylenol for fever at home. Sister states mbr has been (-) on home COVID test and no one else in home is ill. Education provided on the response time and the member was advised to monitor reported s/s and seek emergency treatment if needed -George Tran RN Horse Buyer Organization Information for [employer] Business Legal Name: [employer]? Address: [address] [place] [id number], Director Of Cardiac Cath Lab: Bret Champagne MD IA No.: [id number] Horse Buyer POC Test Results from [employer] [facility] Rapid COVID antigen (17:55:18) COVID: - Rapid influenza antigen (17:55:20) Flu: - Urine Dipstick (18:34:20) Urine leukocytes: +2 CESAR Urine nitrites: ++ NIT Urine urobilinogen: - URO Urine protein: - PRO Urine pH: 5.0 pH Urine blood: + BLO Urine specific gravity: 1.005 SG Urine ketones: + KET Urine bilirubin: - REYNALDO Urine glucose: - GLU ................... ................... ................... ................... ................... ................... ................... ........ Horse Buyer Note From Franco Huff: Dispatched to the call address for the female with a fever. Pt states she has had a fever since Thursday. She has taken Tylenol with good effect. Pt complains of body aches and lower back pain and urinary frequency. Pt advises she has an appt with her PCP on Thursday of this week. Pt denies URI s/s, v/d, abd pain or chest pain. Pt was found in wheel chair in kitchen, CAOx4, airway open and patent, breathing non labored, able to speak in full sentences, -JVD, -HEENT, skin PWD with good turgor, abd soft non tender/distended, pupils PERRL, +CMSx4, -edema, mucous membranes pink and moist, lung sounds CTA, rapid Covid/flu (-). UA (+). [facility] consulted. Pt given 500mg Levofloxacin. Script called into preferred pharmacy. Red flags discussed. ALL times are approx. ................... ................... ................... ................... ................... ................... ................... ........ Disposition: Christal Hang Olsen MD [address] [facility],[address], [place], [address], Jukely 06/26/2024 22:16:52 07/12/2024 text/html CRC Nurse Triage Notes (Naomie Ponce): Reason For Request: Patient has leg pain, and feels like her bones hurt. Chief Complaints: Cellulitis PMH: Neurologic (E.G. ALS/MS), COPD/Asthma, Hypertension Allergies: Trimethoprim-Sulfam ethoxazole Comments: Hat Forming Machine Operator verified the member's name//address and phone number. Member is a 53 yr old , a/o 3 PMH cerebral palsy / HTN/ Asthma Allergies > Bactrim Sister calling for member since 1400 feeling weak and pain all over body with chills. Member has pain to touch with pain in right leg. Leg is red in the anterior and swollen. Member has had swelling since this afternoon and running a temp. Member has not had any falls or injuries. Member does not have any h/o DVT. Member does have a h/o cellulitis. Education provided on the response time and the member was advised to monitor reported s/s and seek emergency treatment if needed ................... ................... ................... ................... ................... ................... ................... ........ Horse Buyer Note From Trae Song: Pt reports today she noticed a painful red area on her RLE c/w previous episodes of cellulitis. Last reported cellulitis was approx 2-3 months ago, treated with cephalexin which she sts worked well. Pt also reports a temp of 100.0 this afternoon, took acetaminophen 1 g 3 hours prior to my arrival. Pt denies severe pain, CP, SOB, n/v/d. Pt is alert, NAD. Mild tachycardia, VS otherwise stable. Temp 99.2. Lungs CTA. Benign ABD exam. R LE midway up anteriorly has edema, warmth, erythema and is painful on palpation. Pt treated with lactated ringers 500 cc IV and ceftriaxone 1 g IV. Pt/sister instructed to have a low threshold for the ED and to f/u with PCP tomorrow. ................... ................... ................... ................... ................... ................... ................... ........ Disposition: Fulfilled Froy Chaves MD [address] [facility],[address], [place], [address], [facility] [employer] 07/12/2024 20:10:23 07/18/2024 text/html HPI: Call returned to Radha Vera to triage below. Multiple pictures sent via Portal since 07/15. Pt handed phone to Ciarra pt caregiver. No injury to area. Warm to touch. Having pitting edema. Tender to touch. Pain with bearing. Pt was having fever last week. [facility] and given IV abx and Keflex QID x 4 days. Pt still has 10 capsules left. Pt still having redness and pain. Pt seen by Vascular surgeon and advised elevation and increased lasix to 40mg daily. Per Ciarra no improvement since then. Advised of disposition, agrees to [facility] referral for re-assessment and POCT blood work ................... ................... ................... ................... ................... ................... ................... ........ CRC Nurse Triage Notes (Nydia Tee): Chief Complaints: Cellulitis PMH: Neurologic (E.G. ALS/MS), COPD/Asthma, Hypertension Allergies: Trimethoprim-Sulfam ethoxazole Other Allergies: Budesonide, formeterol, topiramate, oxybutynin Comments: CRC RN did not require any additional information to process this visit. ................... ................... ................... ................... ................... ................... ................... ........ Horse Buyer Note From Trae Song: I visited Ms Vera 6 days ago and treated her for RLE cellulitis with ceftriaxone IV and she was prescribed seven days of cephalexin. Today pt reports her leg is more painful and more swollen despite increasing her daily furosemide dose per MD. Pt is alert, NAD. Hypotensive, VS otherwise stable. Afebrile. RLE is hot to touch with diffuse erythema and +4 pitting edema. 911 initiated for transport to [place] ED. SBAR to [facility]. ................... ................... ................... ................... ................... ................... ................... ........ Disposition: Fulfilled Marilee Boo MD [address] [facility],[address], [place], [address], [facility] 07/18/2024 21:34:52 OBGyn Episode No OBEpisode recorded.
--- OUTSIDE RECORDS SUMMARY | 2025-03-14 16:59 | XMS_ITS | Encounter Summary ---
Author Organization [employer] Address [address] [place] [address] Care Team Providers Care Flocculator Operator Name Role Phone Marisabel Michel MD Primary Care Provider [phone] Reason for Visit * Reason Comments Med Refill Encounter Details Date Type Department Care Team ([facility] st Contact Info) Description 12/11/2024 Refill [facility] MEDICINE [address] [place], [place] [phone] Marisabel Michel MD [address] [place], [place] [phone] Social History Tobacco Use Types Packs/Day Years [...] documented as of this encounter Care Teams Flocculator Operator Relationship Specialty Start Date End Date Marisabel Michel MD [address] [place] [address] PCP - General Family Medicine 09/04/11 documented as of this encounter
--- OUTSIDE RECORDS SUMMARY | 2025-03-14 16:59 | XMS_ITS | Patient Health Record ---
Author Organization [facility] Address [address] [place] [address] Care Team Providers Care Lens Cementer Name Role Phone Marisabel Michel Primary Care Provider Yoni Glover Unavailable [phone] Gilbert Matson Unavailable [phone] Halle Bustillo Unavailable [phone] Allergies Allergen (clinical drug ingredient) Drug/Non Drug Allergy documented on EMR Reaction Allergy Type Onset Date Status sulfamethoxazole / trimethoprim Bactrim Unknown Drug Allergy Active budesonide / formoterol Symbicort Unknown Drug Allergy Active Results Component Value Reference Range Notes HEMOGLOBIN A1C (GLYCOHEMOGLO BIN) Reviewed date:10/07/2024 11:30:24 AM Interpretation: Performing Lab: Notes/Report: TOTAL HEMOGLOBIN (HGBA1C) 6.1 Reason For Referral No Information Medications Medication SIG (Take, Route, Frequency, Duration) Notes Start Date End Date Status Mupirocin 2 % 1 application Externally Twice a day Active Ipratropium [place] Active Prednisone Not-Takin g Systane Active Jock Itch 1 % 1 application to affected area Externally Twice a day Active Vitamin E Active Ketotifen Fumarate A ctive Ammonium Lactate 12 % 1 application Externally Twice a day Active Breo Ellipta 200-25 MCG/INH 1 puff Inhalation Once a day Active Extra Depth Orthopedic Shoes, (1) Pair With (3) Pair Custom Heat Molded Multidensity Innersoles Dx: NIDDM/PVD(E11.51), Hammertoe Foot Deformity(M20.41,M20 .42), Preulcerative Skin Lesion(s)(L85.1) Wear Daily for 365 days 01/30/2025 Active Montelukast Sodium A ctive Naproxen Active Bismuth Active Ondansetron HCl Acti ve Lisinopril 5 MG 1 tablet Orally Once a day for 30 day(s) Active PriLOSEC OTC Active Lasix 40 MG 1 tablet Orally Once a day for 30 days Active ProAir HFA as needed Active [employer] Ear Wax Removal System Active Proctofoam as needed Active Alendronate Sodium 70 MG 1 tablet 30 minutes before the first food, beverage or medicine of the day with plain water Orally for 30 day(s) Active Saline Nasal [place] as needed A ctive Meclizine HCl 12.5 MG 2 tablets as neede d Orally Once a day for 30 day(s) Active SUMAtriptan Succinate Active Calcium 600 + D 600-200 MG-UNIT Orally Active CVS Jock Itch Active Cetirizine HCl twice a day Act shirin Alclometasone Dipropionate Active Cetaphil Active Clotrimazole as needed Active Gabapentin 100 MG Orally Once a day Active Loratadine Allergy Relief Active Cyproheptadine as needed Activ e Vitamin C 500 MG Orally Act shirin Docusate Sodium 100 MG 1 capsule as need ed Orally Once a day Active Clotrimazole Active Fluticasone Furoate Active Diclofenac Sodium 1 % USE DIRECTED 2 TIMES A DAY for 50 Active Gas Relief Active Meloxicam 15 MG 1 tablet Orally Once a day Not-Taking hydrOXYzine HCl Acti ve Fluconazole 150 MG 1 tablet Orally Once a day Not-Taking Ibuprofen Active Spiriva Respimat Not -Taking Ipratropium-Albuterol Active Flovent HFA Not-Taki ng Immunizations Vaccine Route Administration Date Status Comme nts COVID-19 Moderna Vaccine Unknown 10/30/2021 Administered #1 01/10/2021 #2 02/07/21 Influenza Unknown 07/24/2023 Administered Social History Tobacco Use: Social History Observation [...] Problem Status W/U Status Risk Notes Problem Acquired hammer toe of right foot (346113185608 9105) Other hammer toe(s) (acquired), right foot (M20.41) Active confirmed Problem Type 2 diabetes mellitus with peripheral angiopathy (400272320) Type 2 diabetes mellitus with diabetic peripheral angiopathy without gangrene (E11.51) Active confirmed Q7(A), Q8(2B), Q9(1B,2C) Problem Acquired hammer toe of left foot (654358800834 9103) Other hammer toe(s) (acquired), left foot (M20.42) Active confirmed Problem Ulcer of toe of left foot (disorder) (045821875054 22231) Skin ulcer of toe of left foot, limited to breakdown of skin (L97.521) Active confirmed Response to treatment Nonapplicable Vital Signs Blood pressure diastolic 76 mm Hg 01/30/2025 Height 5ft in 01/30/2025 Blood pressure systolic 127 mm Hg 01/30/2025 Weight 178 lbs 01/30/2025 BMI 34.76 kg/m2 01/30/2025 Procedures Procedure Date Ordered Date Performed Result Body Sit e 26145- Debride <25 sq cm 05/03/2024 N/A 42795-GFSXFHB NAIL, 6 OR MORE 10/07/2024 N/A 22719-JRDI SKIN LESIONS, 2 TO 4 10/07/2024 N/A 33475-HHUJRTK NAIL, 6 OR MORE 01/30/2025 N/A 47466- Debride <25 sq cm 01/30/2025 N/A 25119-GGLJ SKIN LESIONS, 2 TO 4 01/30/2025 N/A Encounters Encounter Location Date Provider Diagnosis [facility] [address] [address] 05/03/2024 Gilbert Matson Tinea unguium B35.1 ; Pain in right toe(s) M79.674 ; Pain in left toe(s) M79.675 ; Skin disease L98.9 ; Type 2 diabetes mellitus with diabetic polyneuropathy E11.42 ; Ingrowing nail L60.0 ; Non-pressure chronic ulcer of other part of right foot limited to breakdown of skin L97.511 and Plantar fascial fibromatosis M72.[address] [address] 05/10/2024 Gilbert Matson Tinea unguium B35.1 ; Pain in right toe(s) M79.674 ; Pain in left toe(s) M79.675 ; Skin disease L98.9 ; Type 2 diabetes mellitus with diabetic polyneuropathy E11.42 ; Ingrowing nail L60.0 and Non-pressure chronic ulcer of other part of right foot limited to breakdown of skin L97.[address] [address] 07/29/2024 Gilbert Matson Tinea unguium B35.1 ; Pain in right toe(s) M79.674 ; Pain in left toe(s) M79.675 ; Skin disease L98.9 ; Type 2 diabetes mellitus with diabetic polyneuropathy E11.42 ; Ingrowing nail L60.0 and Cellulitis of right lower extremity L03.[address] 08/26/2024 Gilbert Matson Tinea unguium B35.1 ; Pain in right toe(s) M79.674 ; Pain in left toe(s) M79.675 ; Skin disease L98.9 ; Type 2 diabetes mellitus with diabetic polyneuropathy E11.42 and Cellulitis of toe of left foot L03.[address] 10/07/2024 Halle Bustillo Type 2 diabetes mellitus with diabetic polyneuropathy E11.42 and Tinea unguium B35.[address] [address] 01/30/2025 Yoni Bhatt Type 2 diabetes mellitus with diabetic peripheral angiopathy without gangrene E11.51 ; Tinea unguium B35.1 ; Pain in right toe(s) M79.674 ; Pain in left toe(s) M79.675 ; Other hammer toe(s) (acquired), left foot M20.42 ; Other hammer toe(s) (acquired), right foot M20.41 and Skin ulcer of toe of left foot, limited to breakdown of skin L97.521 [facility] [place] [address] [address] [address] 07/22/2024 Gilbert Matson Assessments Encounter Date Diagnosis (ICD Code) Assessment Notes Treatment Notes Treatment Clinical Notes Section Notes 05/03/2024 Tinea unguium (ICD-10 - B35.1) 05/03/2024 Pain in right toe(s) (ICD-10 - M79.674) 05/10/2024 Pain in right toe(s) (ICD-10 - M79.674) 05/10/2024 Tinea unguium (ICD-10 - B35.1) 07/29/2024 Tinea unguium (ICD-10 - B35.1) 07/29/2024 Pain in right toe(s) (ICD-10 - M79.674) 08/26/2024 Tinea unguium (ICD-10 - B35.1) 08/26/2024 Pain in right toe(s) (ICD-10 - M79.674) 10/07/2024 Type 2 diabetes mellitus with diabetic polyneuropathy (ICD-10 - E11.42) 10/07/2024 Tinea unguium (ICD-10 - B35.1) 01/30/2025 Type 2 diabetes mellitus with diabetic peripheral angiopathy without gangrene (ICD-10 - E11.51) Q7(A), Q8(2B), Q9(1B,2C) 01/30/2025 Tinea unguium (ICD-10 - B35.1) 08/26/2024 Pain in left toe(s) (ICD-10 - M79.675) 07/29/2024 Pain in left toe(s) (ICD-10 - M79.675) 05/10/2024 Pain in left toe(s) (ICD-10 - M79.675) 05/03/2024 Pain in left toe(s) (ICD-10 - M79.675) 05/03/2024 Skin disease (ICD-10 - L98.9) 05/10/2024 Skin disease (ICD-10 - L98.9) 07/29/2024 Skin disease (ICD-10 - L98.9) 08/26/2024 Skin disease (ICD-10 - L98.9) 01/30/2025 Pain in right toe(s) (ICD-10 - M79.674) 01/30/2025 Pain in left toe(s) (ICD-10 - M79.675) 07/29/2024 Type 2 diabetes mellitus with diabetic polyneuropathy (ICD-10 - E11.42) 08/26/2024 Type 2 diabetes mellitus with diabetic polyneuropathy (ICD-10 - E11.42) 05/03/2024 Type 2 diabetes mellitus with diabetic polyneuropathy (ICD-10 - E11.42) 05/10/2024 Type 2 diabetes mellitus with diabetic polyneuropathy (ICD-10 - E11.42) 05/10/2024 Ingrowing nail (ICD-10 - L60.0) 05/03/2024 Ingrowing nail (ICD-10 - L60.0) 08/26/2024 Cellulitis of toe of left foot (ICD-10 - L03.032) 07/29/2024 Ingrowing nail (ICD-10 - L60.0) 01/30/2025 Other hammer toe(s) (acquired), left foot (ICD-10 - M20.42) 01/30/2025 Other hammer toe(s) (acquired), right foot (ICD-10 - M20.41) Patient Educated with: DIABETIC FOOT CARE INSTRUCTIONS. pdf (DIABETIC FOOT CARE INSTRUCTIONS. pdf) 01/30/2025 Skin ulcer of toe of left foot, limited to breakdown of skin (ICD-10 - L97.521) Response to treatment Nonapplicable Patient Educated with: WOUND CARE INSTRUCTIONS. pdf (WOUND CARE INSTRUCTIONS. pdf) 07/29/2024 Cellulitis of right lower extremity (ICD-10 - L03.115) 05/03/2024 Non-pressure chronic ulcer of other part of right foot limited to breakdown of skin (ICD-10 - L97.511) 05/10/2024 Non-pressure chronic ulcer of other part of right foot limited to breakdown of skin (ICD-10 - L97.511) 05/03/2024 Plantar fascial fibromatosis (ICD-10 - M72.2) 01/30/2025 Other Plan Of Treatment Pending Test Test Name Order Date 70750-HARBICS NAIL, 6 OR MORE 06/02/2017 35955-DBNWUIG NAIL, 6 OR MORE 09/01/2017 42362-LIETQBA NAIL, 6 OR MORE 12/22/2017 78313-PRHEYZD NAIL, 6 OR MORE 03/23/2018 34492-OJRPRUH NAIL, 6 OR MORE 06/01/2018 35165-FSDLNJG NAIL, 6 OR MORE 10/29/2018 72137-GFMHJRI NAIL, 6 OR MORE 08/06/2018 33604-AIXNOOT NAIL, 6 OR MORE 10/07/2024 63915-OSYFZXB NAIL, 6 OR MORE 01/30/2025 10274-Sextmqqt Plate 08/06/2018 68707-Xbyxscsw Plate 12/22/2017 47919- Debride <25 sq cm 06/22/2018 16401- Debride <25 sq cm 01/30/2025 23420- Debride <25 sq cm 05/03/2024 20566-VHKXHXN SKIN/TISSUE 02/04/2022 56203-JRXGDBW SKIN/TISSUE 05/12/2022 43152 I&D ABSCESS- SIMPLE,SINGLE 019 06081 I&D ABSCESS- SIMPLE,SINGLE 020 86175- I&D ABSCESS-COMPLICATED,MULTI 08/2018 14022- I&D ABSCESS-COMPLICATED,MULTI 59079-PUUO SKIN LESIONS, 2 TO 4 06/01/20 18 94028-HAAZ SKIN LESIONS, 2 TO 4 08/06/20 18 63508-NOID SKIN LESIONS, 2 TO 4 06/02/20 17 64875-OIWV SKIN LESIONS, 2 TO 4 03/23/20 18 82170-COPN SKIN LESIONS, 2 TO 4 12/22/19 18 55915-AZRZ SKIN LESIONS, 2 TO 4 09/01/20 17 40124-VMRL SKIN LESIONS, 2 TO 4 10/26/20 20 97985-QEQD SKIN LESIONS, 2 TO 4 01/30/20 21 12615-DWOR SKIN LESIONS, 2 TO 4 04/30/20 21 29255-MCPZ SKIN LESIONS, 2 TO 4 07/30/20 21 94633-BDAV SKIN LESIONS, 2 TO 4 10/25/20 21 63964-ACVY SKIN LESIONS, 2 TO 4 12/27/19 22 72707-UKZM SKIN LESIONS, 2 TO 4 02/05/20 22 90772-NIUF SKIN LESIONS, 2 TO 4 01/24/20 20 60121-DMEH SKIN LESIONS, 2 TO 4 04/24/20 20 18163-BJMC SKIN LESIONS, 2 TO 4 07/24/20 20 44770-YUTV SKIN LESIONS, 2 TO 4 02/09/20 19 33002-GMXI SKIN LESIONS, 2 TO 4 05/10/20 19 67935-NDXW SKIN LESIONS, 2 TO 4 07/26/20 19 15296-MUUF SKIN LESIONS, 2 TO 4 11/08/20 19 85430-HJBU SKIN LESIONS, 2 TO 4 07/01/20 22 16112-RDYD SKIN LESIONS, 2 TO 4 10/29/20 18 72582-XGXA SKIN LESIONS, 2 TO 4 01/31/20 25 21898-NPOP SKIN LESIONS, 2 TO 4 10/07/20 24 Next Appt Details Provider Name:Yoni Bhatt , 05/08/2025 01:30:00 PM, [address] [facility] [facility], [place], [address], Insurance Providers Payer Name Payer Address Payer Phone Subscriber Number Group Number Insured Name Patient Relationship to Insured Coverage Start Date Coverage End Date [facility] [employer] Claims [address] [place] [id number] Radha Vera Self - patient is the insured 7 Medical (General) History Medical History History ICD Code Arthritis asthma Cerebral palsy Chicken pox Epilepsy Knee Pain Kidney stones Migraines Paralysis Poor circulation Reflux Surgical History Surgery Date(Month/Year) appendectomy 2009 hand/wrist 1983 leg surgery 1981 Hospitalization History Reason Date(Month/Year) [facility] [place] infection 07/19-07/25 Urgent Care- Pain in ankle- negetive ult rasound and x-ray 04/2019 ER in [place] 02/2018
--- OUTSIDE RECORDS SUMMARY | 2025-03-14 16:59 | XMS_ITS | Encounter Summary ---
Author Organization [employer] Address [address] [place] [address] Care Team Providers Care Attraction Attendant Name Role Phone Marisabel Michel MD Primary Care Provider [phone] Encounter Details Date Type Department Care Team ([facility] st Contact Info) Description 10/01/2023 Orders Only [facility] MEDICINE [address] [place], [place] [phone] Marisabel Michel MD [address] [place], [place] [phone] Social History Tobacco Use Types Packs/Day Years [...] documented as of this encounter Care Teams Attraction Attendant Relationship Specialty Start Date End Date Marisabel Michel MD [address] [place] [address] PCP - General Family Medicine 09/04/11 documented as of this encounter
--- OUTSIDE RECORDS SUMMARY | 2025-03-14 16:59 | XMS_ITS | Encounter Summary ---
Author Organization [employer] Address [address] [place] [address] Care Team Providers Care Rigging Foreman Name Role Phone Marisabel Michel MD Primary Care Provider [phone] Reason for Visit * Reason Onset Date Comments Med Refill 09/15/2023 Encounter Details Date Type Department Care Team ([facility] st Contact Info) Description 09/15/2023 Telephone [facility] MEDICINE [address] [place], [place] [phone] Marisabel Michel MD [address] [place], [place] [phone] Med Refill Social History Tobacco Use Types Packs/Day Years [...] AM EDT documented as of this encounter Miscellaneous Notes * Telephone Encounter - Angela Sheriff LPN - 09/15/2023 3:59 PM EDT Medication pended to provider on 09/14/23. * Telephone Encounter - Alexa Chiu - 09/15/2023 3:46 PM EDT Tc from pt requesting med refill on naproxen (Naprosyn) 375 MG tablet documented in this encounter Plan of Treatment Not on file documented as of this encounter Visit Diagnoses Not on filedocumented in this encounter Additional Health Concerns Assessment Noted Time PHQ-9 Depression Total Score: 2 02/25/20 1:12 PM EDT documented as of this encounter Care Teams Rigging Foreman Relationship Specialty Start Date End Date Marisabel Michel MD [address] [place] [phone] PCP - General Family Medicine 09/04/11 documented as of this encounter
--- OUTSIDE RECORDS SUMMARY | 2025-03-14 16:59 | XMS_ITS | Clinical Summary ---
Author Organization [employer] Address [address] [facility] [address] [place] [address] Care Team Providers Care Telemetry Technician Name Role Phone Marisabel Michel MD Primary Care Provider [phone] Allergies Active Allergy Reactions Criticality Noted Date Comments Budesonide High 12/15/2013 Other reaction(s): Altered Heart Rate Other Reaction(s): TREMOR Budesonide-Formoterol Fumarate Unknown 03/25 Formoterol High 12/15/2013 Other reaction(s): Altered Heart Rate Other Reaction(s): TREMOR Oxybutynin 12/19/2015 Sulfa Antibiotics Rash High 07/18/2024 Sulfamethoxazole High 03/03/2017 Other reaction(s): Fever, rash Sulfamethoxazole-Trimethoprim Unknown 2023 Topiramate High 09/08/2016 Trimethoprim Rash High 03/03/2017 Other reaction(s): Fever, rash Medications bisacodyl (Dulcolax) 5 MG EC tablet Active carbamide peroxide (Debrox) 6.5 % otic solution Active cetirizine (ZyrTEC) 10 MG tablet Take 1 tablet by mouth every 12 (twelve) hours. Active Diclofenac Sodium (Voltaren) 1 % gel apply (2G) by topical route 4 times every day to the affected area(s) Active Fluticasone Furoate-Vilantero l (Breo Ellipta) 200-25 MCG/ACT aerosol powder Activ e nystatin (Mycostatin) creamIndications: Candidiasis of breast APPLY TOPICALLY TWICE A DAY 60 g 11 11/06/20 Active amitriptyline (Elavil) 10 MG tablet TOME MARIAH TABLETA TODOS [place] AL ACOSTARSE 90 tablet 3 03/21/20 24 Active alendronate (Fosamax) 70 MG tablet TOME MARIAH TABLETA POR VIA ORAL EVERY WEEK IN THE MORNING, AT LEAST 30 MIN BEFORE FIRST FOOD, BEVERAGE, OR MEDICATION OF DAY 12 tablet 3 05/16/20 24 Active Blood Pressure Monitor misc Check BP regularly as directed by your health care provider and as needed when you feel sick 1 each 05/27/20 24 Active cholecalciferol (D3-1000) 25 MCG (1000 UT) capsule TAKE 1 CAPSULE BY MOUTH EVERY DAY 90 capsule 3 07/11/20 24 Active furosemide (Lasix) 40 MG tablet Take 1 tablet by mouth Once per day. Active triamcinolone (Kenalog) 0.025 % ointment PLEASE SEE ATTACHED FOR DETAILED DIRECTIONS 05/30/20 24 Active ascorbic acid (Vitamin C) 500 MG tablet Take 1 tablet (500 mg) by mouth at bedtime. 90 tablet 3 08/19/20 24 Active gabapentin (Neurontin) 100 MG capsule Take 1 capsule by mouth at bedtime. May take 2 capsules if pain relief is inadequate. 90 capsule 3 08/23/20 24 Active hydrOXYzine HCl (Atarax) 25 MG tablet Take 1 tablet (25 mg) by mouth every 8 (eight) hours if needed for itching or allergies. 90 tablet 3 09/08/20 24 Active Bismuth Subsalicylate 262 MG tablet Take 2 tablets by mouth 4 times daily as needed 112 tablet 2 09/08/20 24 Active ondansetron ODT (Zofran-ODT) 4 MG disintegrating tablet Take 1 tablet (4 mg) by mouth every 8 (eight) hours if needed for nausea or vomiting. 30 tablet 3 09/25/20 24 Active Oyster Shell Calcium 500 MG tabletIndications :Osteopenia, unspecified location TAKE 1 TABLET BY MOUTH every other day 45 tablet 3 09/25/20 24 Active ferrous sulfate 325 (65 Fe) MG tablet TAKE 1 TABLET BY MOUTH EVERY OTHER DAY 45 tablet 3 09/25/20 24 Active sodium chloride (Owsley) 0.65 % nasal spray Administer 1 spray into each nostril if needed for congestion. 15 mL 11 09/29/20 24 2024 Active albuterol (Ventolin HFA) 108 (90 Base) MCG/ACT inhaler Inhale 1 puff every 6 (six) hours if needed. Active loperamide (Imodium A-D) 2 MG tablet Take 1 tablet by mouth if needed in the morning, at noon, in the evening, and at bedtime for diarrhea. OTC Active povidone-iodine (Betadine) 10 % ointment Apply 1 Application. topically if needed for wound care. OTC Active glucosamine-chond roitin 500-400 MG tablet Take 1 tablet by mouth 3 times daily. OTC Active Turmeric 450 MG capsule Take 1 capsule by mouth Once per day. OTC Active saccharomyces boulardii (Florastor) 250 MG capsule Take 250 mg by mouth 2 times daily. Active acetaminophen (Tylenol) 500 MG tablet Take 1 tablet by mouth every 6 (six) hours if needed for mild pain. Active montelukast (Singulair) 10 MG tabletIndications :Moderate persistent asthma without complication TAKE 1 TABLET BY MOUTH EVERY DAY 90 tablet 1 12/16/19 25 Active omeprazole (PriLOSEC) [address] capsule TAKE 1 CAPSULE BY MOUTH BEFORE BREAKFAST AND BEFORE EVENING MEAL. DO NOT CRUSH OR CHEW. 180 capsule 3 12/19/19 25 Active diphenhydrAMINE (Banophen) 25 MG capsuleIndication s:Allergic rhinitis due to other allergic trigger, unspecified seasonality TAKE 2 CAPSULES BY MOUTH EVERY 6 HOURS 30 capsule 3 01/28/20 25 Active clotrimazole (Mycelex) 10 MG leonardo TAKE 1 TABLET BY MOUTH THREE TIMES DAILY 90 Leonardo 1 01/28/20 25 Active fluticasone (Flonase) 50 MCG/ACT nasal spray USE 1-2 SPRAYS IN EACH NOSTRIL ONCE PER DAY. SHAKE GENTLY. CLEAN TIP AND REPLACE CAP. 48 mL 1 03/02/20 25 Active naproxen (Naprosyn) 375 MG tablet TOME 1 TABLETA POR VIA ORAL DOS VECES AL MYAH CUANDO SEA NECESARIO 30 tablet 03/02/20 25 Active ciclopirox (Loprox) 0.77 % cream APLIQUE AL AREA AFECTADA DOS VECES AL MYAH 90 g 1 03/03/20 25 Active docusate sodium (Colace) 100 MG capsule TAKE 1 CAPSULE BY MOUTH TWICE A DAY 180 capsule 1 03/14/20 25 Active ciclopirox (Loprox) 0.77 % cream APPLY TOPICALLY TWICE A DAY 90 g 1 08/22/20 24 2024 Discontinued docusate sodium (Colace) 100 MG capsule TAKE 1 CAPSULE BY MOUTH TWICE A DAY 180 capsule 1 09/21/20 24 2024 Discontinued fluticasone (Flonase) 50 MCG/ACT nasal spray Administer 1-2 sprays into each nostril Once per day. Shake gently. Before first use, prime pump. After use, clean tip and replace cap. 16 g 3 09/29/20 24 2024 Discontinued naproxen (Naprosyn) 375 MG tablet TAKE 1 TABLET BY MOUTH TWICE A DAY NEEDED 30 tablet 01/28/20 25 2024 Discontinued Active Problems Problem Noted Date Diagnosed Date Acquired hammer toe of left foot 02/18/2025 Assessment & Plan (02/18/2025 5:07 AM EDT): - following with child welfare director - she is pleased with her new child welfare director's care - continue following the recommendation from the child welfare director Acquired hammer toe of right foot 02/18/2025 Assessment & Plan (02/18/2025 5:07 AM EDT): - following with child welfare director - she is pleased with her new child welfare director's care - continue following the recommendation from the child welfare director Ulcer of toe of left foot 02/18/2025 Assessment & Plan (02/18/2025 5:07 AM EDT): - following with child welfare director - she is pleased with her new child welfare director's care - continue following the recommendation from the child welfare director Environmental allergies 10/05/2024 Orthopnea 10/05/2024 Osteoarthritis of left knee 10/05/2024 Osteoarthritis of right knee 10/05/2024 Pain and swelling of right lower leg 09/25/2024 Cellulitis of right leg 07/29/2024 Assessment & Plan (09/20/2024 6:01 PM EDT): - started on cephalexin PO on 07/12/24 with marginal improvement - hospitalized 07/18/24 to 07/25/24 and received IV vancomycin which was changed to IV doxycycline. Discharged with doxycycline and Augmentin upon discharge. - differential diagnosis includes: venous stasis dermatitis or atopic dermatitis (her father had a similar problem, and finally diagnosed as severe atopic dermatitis requiring chronic steroid). - complete antibiotics - if no improvement, will refer to ID specialist for further evaluation and recommendation (whether it is cellulitis or whether patient needs another antibiotic). - ID specialist recommended seeing dermatology and continue compression stockings. Assessment & Plan (07/29/2024 10:34 AM EDT): - started on cephalexin PO on 07/12/24 with marginal improvement - hospitalized 07/18/24 to 07/25/24 and received IV vancomycin which was changed to IV doxycycline. Discharged with doxycycline and Augmentin upon discharge. - differential diagnosis includes: venous stasis dermatitis or atopic dermatitis (her father had a similar problem, and finally diagnosed as severe atopic dermatitis requiring chronic steroid). - complete antibiotics - if no improvement, will refer to ID specialist for further evaluation and recommendation (whether it is cellulitis or whether patient needs another antibiotic). Hypokalemia 07/29/2024 Chronic pain of right knee 05/09/2024 Assessment & Plan (06/28/2024 5:43 AM EDT): - x-ray on 05/09/24 showed marked elevation of the patella and marked osteoarthritis of medial and lateral compartment - MRI on 05/27/24 showed marked patella glynn, mild medial / lateral compartment osteoarthritis. - seen by [facility] Ortho on 05/18/24 and was given intraarticular steroid treatment Assessment & Plan (05/09/2024 4:44 PM EDT): -pt twisted knee when transferring from bed to wheelchair -will prescribe Meloxicam -continue icing as needed for pain -ordered x-ray Acute right ankle pain 05/09/2024 Assessment & Plan (07/29/2024 10:34 AM EDT): - X-ray on 05/09/24 showed diffusely demineralized bones. No fracture or dislocation. Marked narrowing of the tibiotalar joint. In the fibular-talar joint. Marked pes planus. - in a setting of osteoporosis / osteopenia - Following with child welfare director; seen yesterday - Evaluate with MRI due to pain not improving with current treatment and worsening function Assessment & Plan (06/28/2024 5:45 AM EDT): - X-ray on 05/09/24 showed diffusely demineralized bones. No fracture or dislocation. Marked narrowing of the tibiotalar joint. In the fibular-talar joint. Marked pes planus. Right lower quadrant pain 03/29/2024 Assessment & Plan (03/29/2024 5:06 PM EDT): - will check lab and consider CT scan evaluation Prediabetes 07/01/2023 Assessment & Plan (02/14/2025 9:45 AM EDT): - strong family history of DM (mother, father, sisters) - 12/07/23 A1C 6.1% - 07/01/23 A1C 6.4% -08/02/24 A1C 6.1% - continue working on lifestyle modifications Assessment & Plan (09/20/2024 5:57 PM EDT): - strong family history of DM (mother, father, sisters) - 12/07/23 A1C 6.1% - 07/01/23 A1C 6.4% -08/02/24 A1C 6.1% - continue working on lifestyle modifications Assessment & Plan (07/29/2024 10:21 AM EDT): - strong family history of DM (mother, father, sisters) - 12/07/23 A1C 6.1% - 07/01/23 A1C 6.4% - continue working on lifestyle modifications Assessment & Plan (06/28/2024 5:46 AM EDT): - strong family history of DM (mother, father, sisters) - 12/07/23 A1C 6.1% - 07/01/23 A1C 6.4% - continue working on lifestyle modifications Assessment & Plan (12/25/2023 6:12 AM EST): - strong family history of DM (mother, father, sisters) - 12/07/23 A1C 6.1% - 07/01/23 A1C 6.4% - continue working on lifestyle modifications Assessment & Plan (07/01/2023 3:42 PM EDT): - strong family history of DM (mother, father, sisters) - A1C 6.4% today, increased from 5.9% in 2021 - continue working on lifestyle modifications Primary hypertension 03/08/2023 Assessment & Plan (02/14/2025 9:44 AM EDT): -Goal BP < 140/90 per JNC-8 and < 130/80 per ACC/AHA guideline (Treatment threshold >= 140/90 ) -BP at goal. -Continue working on lifestyle modifications -Continue self-monitoring BP -Continue judicious use of furosemide 40 ng daily -Treatment Hx: lisinopril 5 mg daily started in 10/2022, decreased to 2.5 mg daily in February 2023, then discontinued as she developed symptomatic hypotension because she started taking furosemide regularly for edema. Assessment & Plan (09/20/2024 5:54 PM EDT): -Goal BP < 140/90 per JNC-8 and < 130/80 per ACC/AHA guideline (Treatment threshold >= 140/90 ) -BP at goal. -Continue working on lifestyle modifications -Continue self-monitoring BP -Continue judicious use of furosemide 40 ng daily -Treatment Hx: lisinopril 5 mg daily started in 10/2022, decreased to 2.5 mg daily in February 2023, then discontinued as she developed symptomatic hypotension because she started taking furosemide regularly for edema. Assessment & Plan (07/29/2024 10:16 AM EDT): -Goal BP < 140/90 per JNC-8 and < 130/80 per ACC/AHA guideline (Treatment threshold >= 140/90 ) -BP at goal. -Continue working on lifestyle modifications -Continue self-monitoring BP -Continue judicious use of furosemide 40 ng daily -Treatment Hx: lisinopril 5 mg daily started in 10/2022, decreased to 2.5 mg daily in February 2023, then discontinued as she developed symptomatic hypotension because she started taking furosemide regularly for edema. Assessment & Plan (06/28/2024 5:16 AM EDT): -Goal BP < 140/90 per JNC-8 and < 130/80 per ACC/AHA guideline (Treatment threshold >= 140/90 ) -BP at goal. Patient had symptomatic hypotension in a setting of lisinopril which was prescribed by PCP and furosemide which was prescribed by web press operator -Continue working on lifestyle modifications -Continue self-monitoring BP -Continue judicious use of furosemide -Discontinued lisinopril -Treatment Hx: lisinopril 5 mg daily started in 10/2022, decreased to 2.5 mg daily in February 2023 -Follow up in 3-6 mo, sooner if any problem arises Assessment & Plan (03/29/2024 5:09 PM EDT): -Goal BP < 140/90 per JNC-8 and < 130/80 per ACC/AHA guideline (Treatment threshold >= 140/90 ) -BP at goal. Patient had symptomatic hypotension in a setting of lisinopril which was prescribed by PCP and furosemide which was prescribed by web press operator -Continue working on lifestyle modifications -Continue self-monitoring BP -Continue judicious use of furosemide -Discontinued lisinopril -Treatment Hx: lisinopril 5 mg daily started in 10/2022, decreased to 2.5 mg daily in February 2023 -Follow up in 3-6 mo, sooner if any problem arises Assessment & Plan (12/25/2023 6:09 AM EST): -Goal BP < 140/90 per JNC-8 and < 130/80 per ACC/AHA guideline (Treatment threshold >= 140/90 ) -BP at goal. Patient had symptomatic hypotension in a setting of lisinopril which was prescribed by PCP and furosemide which was prescribed by web press operator -Continue working on lifestyle modifications -Continue self-monitoring BP -Continue judicious use of furosemide -Discontinued lisinopril -Treatment Hx: lisinopril 5 mg daily started in 10/2022, decreased to 2.5 mg daily in February 2023 -Follow up in 3-6 mo, sooner if any problem arises Assessment & Plan (07/01/2023 3:45 PM EDT): -Goal BP < 140/90 per JNC-8 and < 130/80 per ACC/AHA guideline (Treatment threshold >= 140/90 ) -BP at goal, lately lower BP -Continue working on lifestyle modifications -Continue self-monitoring BP. -Discontinue lisinopril -Treatment Hx: lisinopril 5 mg daily started in 10/2022, decreased to 2.5 mg daily in February 2023 -Follow up in 3-6 mo, sooner if any problem arises Assessment & Plan (03/08/2023 6:50 PM EDT): -Goal BP < 140/90 per JNC-8 and < 130/80 per ACC/AHA guideline (Treatment threshold >= 140/90 ) -BP at goal, lately lower BP -Continue working on lifestyle modifications -Recommended self-monitoring BP. -Decrease lisinopril to 2.5 mg daily. Hold if SBP < 120 -Treatment Hx: lisinopril 5 mg daily started in 10/2022 -Follow up in 3-6 mo, sooner if any problem arises FARTUN (obstructive sleep apnea) 03/08/2023 Assessment & Plan (02/14/2025 9:43 AM EDT): -home sleep study on 09/23/21 revealed moderate FARTUN and hypoxemia the lowest 72%. In-lab sleep study was recommended -in-lab sleep study 02/09/23 Auto PAP 4-8 cm H2O was recommended. -continue following with sleep medicine clinic Assessment & Plan (06/28/2024 5:16 AM EDT): -home sleep study on 09/23/21 revealed moderate FARTUN and hypoxemia the lowest 72%. In-lab sleep study was recommended -in-lab sleep study 02/09/23 Auto PAP 4-8 cm H2O was recommended. -continue following with sleep medicine clinic Assessment & Plan (03/29/2024 5:06 PM EDT): -home sleep study on 09/23/21 revealed moderate FARTUN and hypoxemia the lowest 72%. In-lab sleep study was recommended -in-lab sleep study 02/09/23 Auto PAP 4-8 cm H2O was recommended. -continue following with sleep medicine clinic Assessment & Plan (12/25/2023 6:02 AM EST): -home sleep study on 09/23/21 revealed moderate FARTUN and hypoxemia the lowest 72%. In-lab sleep study was recommended -in-lab sleep study 02/09/23 Auto PAP 4-8 cm H2O was recommended. -continue following with sleep medicine clinic Assessment & Plan (07/01/2023 3:42 PM EDT): -home sleep study on 09/23/21 revealed moderate FARTUN and hypoxemia the lowest 72%. In-lab sleep study was recommended -in-lab sleep study 02/09/23 Auto PAP 4-8 cm H2O was recommended. -continue following with sleep medicine clinic Assessment & Plan (03/08/2023 7:01 PM EDT): -home sleep study on 09/23/21 revealed moderate FARTUN and hypoxemia the lowest 72%. In-lab sleep study was recommended -in-lab sleep study 02/09/23 Auto PAP 4-8 cm H2O was recommended. -continue following with sleep medicine clinic Osteoporosis 03/08/2023 Assessment & Plan (07/29/2024 10:19 AM EDT): -09/16/21 DEXA The lowest T-score -2.6 in L femoral neck - 11/23/23 DEXA the lowest T-score -2.4 in L femoral neck -Risk factors: Minimal weight-bearing; early menopause; Family Hx -Started alendronate since Aug 2021; continue -Plan to continue alendronate for at least 5 years -Wt bearing exercise as tolerated -Fall precaution -Encourage adequate Ca and Vit D intake Assessment & Plan (06/28/2024 5:45 AM EDT): -09/16/21 DEXA The lowest T-score -2.6 in L femoral neck - 11/23/23 DEXA the lowest T-score -2.4 in L femoral neck -Risk factors: Minimal weight-bearing; early menopause; Family Hx -Started alendronate since Aug 2021; continue -Plan to continue alendronate for at least 5 years -Wt bearing exercise as tolerated -Fall precaution -Encourage adequate Ca and Vit D intake Assessment & Plan (12/25/2023 6:21 AM EST): -09/16/21 DEXA The lowest T-score -2.6 in L femoral neck - 11/23/23 DEXA the lowest T-score -2.4 in L femoral neck -Risk factors: Minimal weight-bearing; early menopause; Family Hx -Started alendronate since Aug 2021 -Plan to continue alendronate for at least 5 years -Wt bearing exercise as tolerated -Fall precaution -Encourage adequate Ca and Vit D intake Assessment & Plan (03/08/2023 7:03 PM EDT): -09/16/21 DEXA The lowest T-score -2.6 in L femoral neck -Risk factors: Minimal weight-bearing; early menopause; Family Hx -Started alendronate since Aug 2021 -Plan to continue alendronate for at least 5 years -Wt bearing exercise as tolerated -Fall precaution -Encourage adequate Ca and Vit D intake Recurrent kidney stones 03/08/2023 Assessment & Plan (07/01/2023 3:47 PM EDT): -followed by urologist, [facility] seen on 04/07/23, annual f/u -most recent US in 2022 no stone -s/p ESWL of R kidney stone on 04/05/2018 and 04/28/2018 -continue water intake 2L/day, preferrably lemon water Assessment & Plan (03/08/2023 7:09 PM EDT): -followed by urologist, Dr. Zelaya, seen on 03/21/21 -most recent US on 12/26/20 no stone -s/p ESWL of R kidney stone on 04/05/2018 and 04/28/2018 -continue water intake 2L/day, preferrably lemon water Intrinsic atopic dermatitis 03/08/2023 Assessment & Plan (07/29/2024 10:22 AM EDT): -followed by die cut operator, Dr. Rivers -advised to schedule appointment with Dr. Rivers to evaluate for her cellulitis; possible stasis dermatitis and/or atopic dermatitis. Assessment & Plan (03/08/2023 7:04 PM EDT): -followed by die cut operator, Dr. Rivers Tubular adenoma of colon 03/08/2023 Assessment & Plan (12/25/2023 6:10 AM EST): Followed by Dr. Lambert, last seen on 05/29/21. 05/29/21 EGD, duodenal polyp ( tubular adenoma) and gastric polyps (no dysplasia, metaplasia), colonoscopy - small colon polyp (tubular adnemoa) ?? 01/25/18: Biopsy of duodenum polyp was tubular adenoma 05/14/15 EGD Dx: Hiatal hernia and duodenal polyp. Pathology: tubuar adenoma 12/17/15 Colonoscopy Dx: Sigmoid diverticulosis and minimal hemorrhoids. Tubular adenoma of small intestine 03/08/2023 Assessment & Plan (12/25/2023 6:10 AM EST): Followed by Dr. Lambert, last seen on 05/29/21. 05/29/21 EGD, duodenal polyp ( tubular adenoma) and gastric polyps (no dysplasia, metaplasia), colonoscopy - small colon polyp (tubular adnemoa) ?? 01/25/18: Biopsy of duodenum polyp was tubular adenoma 05/14/15 EGD Dx: Hiatal hernia and duodenal polyp. Pathology: tubuar adenoma 12/17/15 Colonoscopy Dx: Sigmoid diverticulosis and minimal hemorrhoids. Assessment & Plan (03/08/2023 7:13 PM EDT): Followed by Dr. Lambert, last seen on 05/29/21. 05/29/21 EGD, duodenal polyp ( tubular adenoma) and gastric polyps (no dysplasia, metaplasia), colonoscopy - small colon polyp (tubular adnemoa) 01/25/18: Biopsy of duodenum polyp was tubular adenoma 05/14/15 EGD Dx: Hiatal hernia and duodenal polyp. Pathology: tubuar adenoma 12/17/15 Colonoscopy Dx: Sigmoid diverticulosis and minimal hemorrhoids. Venous stasis dermatitis of both lower extremiti es 03/08/2023 Assessment & Plan (07/01/2023 3:46 PM EDT): -Followed by [facility]. -Cont moisturization. -Leg elevation -Low sodium diet Assessment & Plan (03/08/2023 7:16 PM EDT): Followed by [facility]. -Cont moisturization. -Keep legs elevated. 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 Last X-ray in 2017 showed patella glynn ?? Will refer to orthopedist so that they may be able to give her some recommendations on which type of brace to wear and / or physical therapy Recurrent UTI 10/28/2022 Assessment & Plan (07/01/2024 2:48 PM EDT): UTI 3-4 times per year. - most recent UTI Dx in Jun 2024. Tx levofloxacin x 5 days - most recent urine culture available is from 04/01/24 Citrobacter koseri > 100,000 cfu/ml, pansensitive. Tx with cipro -April 2022 E. Coli resistant to levofloxacin -Oct 2017 - E.coli christian-senstive, negative ESBL and Proteus mirabelis resitant to nitrofurantoin, ceftriaxone, and ampicillin. Treated with levofloxacin. -Continue adequate hydration, periodic appt with urologist -Consider methenamine for ABX-sparing prophylaxis Assessment & Plan (03/08/2023 7:11 PM EDT): UTI 3-4 times per year. -last UTI in April 2022 E. coli -presumptive UTI currently, Jul 2020, will treat with nitrofurantoin -presumptive UTI in April 2020, Tx with cephalexin -Presumptive UTI in Aug 2019 and Tx with Macrobid -Presumptive UTI in 2017 and Tx with Cipro: UCx multiple organisms <100K -UTI, Oct 2017 - E.coli christian-senstive, negative ESBL and Proteus mirabelis resitant to nitrofurantoin, ceftriaxone, and ampicillin. Treated with levofloxacin. -Continue adequate hydration, periodic appt with urologist Assessment & Plan (10/28/2022 9:41 PM EST): ?? Frequency - every 2-3 months ?? Most recent UTI in April 2022, E. Coli. ?? Continue adequate hydration ?? Check urine test Allergic rhinitis 12/19/2015 Assessment & Plan (02/18/2025 5:04 AM EDT): Previously followed by allergy / academic program specialist, Dr. Loco, now waiting for an appt with new specialist Evaluated by [facility] in 2022, patient was offered immunotherapy, but had been hesitant Currently following with [facility] pulmonology for both allergy, asthma, and FARTUN Continue cetirizine 10 mg bid Continue montelukast 10 mg daily Continue flonase Assessment & Plan (12/25/2023 6:13 AM EST): Previously followed by allergy / academic program specialist, Dr. Loco, now waiting for an appt with new specialist Evaluated by [facility] in 2022, patient was offered immunotherapy, but had been hesitant Currently following with [facility] pulmonology for both allergy, asthma, and FARTUN Continue cetirizine 10 mg bid Continue montelukast 10 mg daily Continue flonase Assessment & Plan (03/08/2023 7:14 PM EDT): Previously followed by allergy / academic program specialist, Dr. Loco, now waiting for an appt with new specialist Continue cetirizine 10 mg bid Continue montelukast 10 mg daily Continue flonase Assessment & Plan (10/29/2022 2:29 PM EST): ?? Followed by allergy / academic program specialist, Dr. Mcelroy ?? Continue cetirizine 10 mg bid ?? Continue montelukast 10 mg daily Asthma 08/29/2015 Assessment & Plan (02/14/2025 9:44 AM EDT): -Previously followed by Dr. Loco, allergy /academic program specialist -Currently following with Dr. Pederson [facility] pulmonology -Exacerbation 1-2 times per year -Last exacerbation in November 2020, Rx Prednisone (-Continue Spiriva) - Dr. Loco prescribed, but not mentioned in Dr. Pederson's note -Continue Breo -Continue montelukast -Continue albuterol HFA/neb prn Treatment Hx: Advair, difficulty using Diskus; Pulmicort; Incruse Assessment & Plan (06/28/2024 5:58 AM EDT): -Previously followed by Dr. Loco, allergy /academic program specialist -Currently following with Dr. Pederson [facility] pulmonology -Exacerbation 1-2 times per year -Last exacerbation in November 2020, Rx Prednisone (-Continue Spiriva) - Dr. Loco prescribed, but not mentioned in Dr. Pederson's note -Continue Breo -Continue montelukast -Continue albuterol HFA/neb prn Treatment Hx: Advair, difficulty using Diskus; Pulmicort; Incruse Assessment & Plan (03/29/2024 5:07 PM EDT): -Previously followed by Dr. Loco, allergy /academic program specialist -Currently following with Dr. Pederson [facility] pulmonology -Exacerbation 1-2 times per year -Last exacerbation in November 2020, Rx Prednisone (-Continue Spiriva) - Dr. Loco prescribed, but not mentioned in Dr. Pederson's note -Continue Breo -Continue montelukast -Continue albuterol HFA/neb prn Treatment Hx: Advair, difficulty using Diskus; Pulmicort; Incruse Assessment & Plan (12/25/2023 6:04 AM EST): -Previously followed by Dr. Loco, allergy /academic program specialist -Currently following with Dr. Pederson, [facility] pulmonology -Exacerbation 1-2 times per year -Last exacerbation in November 2020, Rx Prednisone (-Continue Spiriva) - Dr. Loco prescribed, but not mentioned in Dr. Pederson's note -Continue Breo -Continue montelukast -Continue albuterol HFA/neb prn Treatment Hx: Advair, difficulty using Diskus; Pulmicort; Incruse Assessment & Plan (07/01/2023 3:43 PM EDT): -Previously followed by Dr. Loco, allergy /academic program specialist -Exacerbation 1-2 times per year -Last exacerbation in November 2020, Rx Prednisone -Continue Spiriva -Continue Breo -Continue Singulair -Continue albuterol HFA/neb prn Treatment Hx: Advair, difficulty using Diskus; Pulmicort; Incruse Assessment & Plan (03/08/2023 6:59 PM EDT): -Previously followed by Dr. Loco, allergy /academic program specialist -Exacerbation 1-2 times per year -Last exacerbation in November 2020, Rx Prednisone -Continue Spiriva -Continue Breo -Continue Singulair -Continue albuterol HFA/neb prn Treatment Hx: Advair, difficulty using Diskus; Pulmicort; Incruse Assessment & Plan (10/28/2022 9:38 PM EST): ?? Air Quality Manager, Dr. Mcelroy, upcoming appt ?? Continue Breo ?? Continue Singulair ?? Continue albuterol HFA / neb prn Headache 08/29/2015 Assessment & Plan (02/14/2025 9:43 AM EDT): -optimize Tx for FARTUN Assessment & Plan (12/25/2023 6:02 AM EST): -optimize Tx for FARTUN Chronic peripheral venous hypertension 5 Wheelchair dependence 05/22/2015 Assessment & Plan (02/18/2025 5:04 AM EDT): Wheelchair weight 35.4 lb on 01/20/2017 Waiting for a new wheelchair Assessment & Plan (09/20/2024 5:55 PM EDT): Wheelchair weight 35.4 lb on 01/20/2017 -will get updated weight when getting new wheelchair Assessment & Plan (10/29/2022 2:28 PM EST): ?? Wheelchair weight 35.4 lb on 01/20/2017 Peripheral venous insufficiency 05/22/2015 Assessment & Plan (09/20/2024 5:54 PM EDT): - following with [facility], last seen in Nov 2023, recommended to use furosemide - Recommended leg elevation, compression stocking, adequate activity, and low- sodium diet - Reviewed judicious use of diuretics because she does not have CHF. - patient verbalized understanding that she will continue using furosemide judiciously. Assessment & Plan (07/29/2024 10:19 AM EDT): - following with [facility], last seen in Nov 2023, recommended to use furosemide - Recommended leg elevation, compression stocking, adequate activity, and low- sodium diet - Reviewed judicious use of diuretics because she does not have CHF. - patient verbalized understanding that she will continue using furosemide judiciously. Assessment & Plan (06/28/2024 5:18 AM EDT): - following with [facility], last seen in Nov 2023, recommended to use furosemide - PCP recommended that optimal treatment for venous insufficiency is leg elevation, compression stocking, adequate activity, and low-sodium diet, rather than a diuretic since patient does not have hypertension or CHF. - patient verbalized understanding that she will continue using furosemide judiciously. - patient's template inspector recommended to double the dose of furosemide, patient has not started yet and was recommended to try 1.5 tablets in the morning to monitor her BP and symptom before doubling the dose Assessment & Plan (03/29/2024 5:08 PM EDT): - following with [facility], last seen in Nov 2023, recommended to use furosemide - PCP recommended that optimal treatment for venous insufficiency is leg elevation, compression stocking, adequate activity, and low-sodium diet, rather than a diuretic since patient does not have hypertension or CHF. - patient verbalized understanding that she will continue using furosemide judiciously. - patient's template inspector recommended to double the dose of furosemide, patient has not started yet and recommended to try 1.5 tablets in the morning before taking 2 tablets a day Assessment & Plan (12/25/2023 6:07 AM EST): - following with [facility], last seen in Nov 2023, recommended to use furosemide - PCP recommended that optimal treatment for venous insufficiency is leg elevation, compression stocking, adequate activity, and low-sodium diet, rather than a diuretic since patient does not have hypertension or CHF. - patient verbalized understanding that she will continue using furosemide judiciously. Hiatal hernia 05/22/2015 Migraine 05/17/2014 Gastroesophageal reflux disease 08/09/2013 Obesity 09/15/2012 Assessment & Plan (12/25/2023 6:20 AM EST): - difficulty obtaining accurate weight and BMI due to wheelchair-bound status - it seems like she has lost weight, mainly by dietary modification - patient does a sitting Mili - continue current lifestyle modification effort Cerebral palsy 09/15/2012 Assessment & Plan (02/14/2025 9:43 AM EDT): -Continue Baclofen prn. -completed home PT. -completed speech therapy. -Most recent swallowing evaluation in April 2015 was reassuring for no aspiration or airway problem. Assessment & Plan (09/20/2024 5:53 PM EDT): -Continue Baclofen prn. -completed home PT. -completed speech therapy. -Most recent swallowing evaluation in April 2015 was reassuring for no aspiration or airway problem. Assessment & Plan (05/09/2024 4:29 PM EDT): -Continue Baclofen prn. -completed home PT. -completed speech therapy. -Most recent swallowing evaluation in April 2015 was reassuring for no aspiration or airway problem. Assessment & Plan (03/29/2024 5:06 PM EDT): -Continue Baclofen prn. -completed home PT. -completed speech therapy. -Most recent swallowing evaluation in April 2015 was reassuring for no aspiration or airway problem. Assessment & Plan (12/25/2023 6:01 AM EST): -Continue Baclofen prn. -completed home PT. -completed speech therapy. -Most recent swallowing evaluation in April 2015 was reassuring for no aspiration or airway problem. Assessment & Plan (07/01/2023 3:43 PM EDT): -Continue Baclofen prn. -Completed home PT. -Continue speech therapy. -Most recent swallowing evaluation in April 2015 was reassuring for no aspiration or airway problem. Assessment & Plan (03/08/2023 7:15 PM EDT): -Continue Baclofen prn. -Completed home PT. -Continue speech therapy. -Most recent swallowing evaluation in April 2015 was reassuring for no aspiration or airway problem. 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 03/08/2023 Osteopenia 07/16/2012 03/08/2023 Assessment & Plan (03/08/2023 6:57 PM EDT): - DEXA Encounters Date Type Department Care Team Description 03/12/2025 Refill [facility] [address] [place] [address] Marisabel Michel MD 03/02/2025 Refill [facility] [address] [place] [address] Marisabel Michel MD 03/01/2025 Refill [facility] [address] [place] [address] Marisabel Michel MD 02/14/2025 1:00 PM EDT Office Visit [facility] [address] [place] [address] Marisabel Michel MD Moderate persistent asthma without complication (Primary Dx); FARTUN (obstructive sleep apnea); Primary hypertension; Prediabetes; Nonintractable headache, unspecified chronicity pattern, unspecified headache type; Cerebral palsy, unspecified type ([facility]/HCC); Wheelchair dependence; Allergic rhinitis due to other allergic trigger, unspecified seasonality; Acquired hammer toe of right foot; Acquired hammer toe of left foot; Ulcer of toe of left foot, unspecified ulcer stage ([facility]/HCC) 02/14/2025 Telephone [facility] [address] [place] [phone] Marisabel Michel MD 02/14/2025 Travel 02/09/[address] [phone] Marisabel Michel MD chart prep 01/27/[address] [phone] Marisabel Michel MD Allergic rhinitis due to other allergic trigger, unspecified seasonality 01/12/2025 Telephone [facility] [address] [place], [place] [phone] Marisabel Mcihel MD Durable Medical Equipment 01/08/2025 Travel 01/05/[address] [address] Vidya Davila [place] chart prep 01/04/[address] [phone] Marisabel Michel MD [employer] (Pressure relieving seat cushion with solid seat insert, solid backrest, integrated push handles, Break extension, rear anti tippers, transit brackets, adjustable height T-armrests) 01/02/2025 Telephone [facility] [address] [place] [address] [phone] Marisabel Michel MD DME from [employer] 12/25/2024 Refill [facility] [address] [place] [address] [phone] Marisabel Michel MD 12/19/[address] [address] Marisabel Michel MD 12/16/2024 Refill [facility] [address] [place] [address] Marisabel Michel MD Moderate persistent asthma without complication from Last 3 Months Immunizations Name Administration Dates Next Due Hep B, adult 01/13/2003,07/29/2002,07/01/2002 Influenza injectable quadriv alent IIV4 with preservative 10/05/2018,08/24/2017,09/02/2016,08/29 Influenza injectable quadriv alent preservative free 12/15/2023,10/28/2022,08/26/2021,08/14,08/25/2019 Influenza, IIV3, injectable 09/12/2014,0 08/15/2011,10/04/2010,08/06,08/29/2008,09/13/2007,10/13/2006 Influenza, Split (incl. irineo fied surface antigen) 08/09/2013,09/15/2012 Influenza, seasonal, injecta ble, preservative free 09/19/2024 MMR 05/06/2002,04/01/2002 Moderna Covid-19 Vaccine 12+ 04/23/2022, 10/30/2021,02/07/2021,01/10 Moderna Covid-19 Vaccine 6+ Bivalent 11/05/2022 Pfizer Covid-19 Vaccine 12+ 09/19/2024, 4 Pneumococcal Conjugate PCV 20 12/15/2023 Pneumococcal Polysaccharide PPSV23 07/12/2009 TD (adult), 2 Lf tetanus tox oid, preservative free, adsorbed 10/28/2021,04/01/2002 Tdap 07/09/2011 Varicella 05/11/2002 Zoster, Recombinant 04/24/2022,01/21/2022 Family History Medical History Relation Name Comments Colon cancer Brother Diabetes type II Father venous stasis Father Diabetes type II Mother Hypertension Mother Polymyalgia rheumatica Mother Diabetes type II Sister 1 Liver disease Sister 2 Relation Name Status Comments Brother Father Mother Sister 1 Sister 2 Social History Tobacco Use Types Packs/Day Years Used Date Smoking Tobacco: Never Passive Smoke Exposure: Never Smokeless Tobacco: Never Tobacco Cessation:Counseling Given: Not Answered Alcohol Answer Date Recorded Frequency of Alcohol [...] Orientation Straight 09/22/2022 10 :16 AM EDT Last Filed Vital Signs Vital Sign Reading Time Taken Comments Blood Pressure 132/78 02/14/2025 1:28 PM EDT Pulse 83 02/14/2025 1:15 PM EDT Temperature 36 ??C (96.8 ??F) 02/14/2025 1:1 5 PM EDT Respiratory Rate 20 02/14/2025 1:15 PM EDT Oxygen Saturation 100% 02/14/2025 1:1 5 PM EDT Inhaled Oxygen Concentration - - Weight 95.3 kg (210 lb) 02/14/2025 1:15 PM EDT wheel chair is 35lb Height 152.4 cm (5') 06/10/2021 12:07 AM EDT Body Mass Index 41.01 06/10/2021 12:07 AM EDT Plan of Treatment Health Maintenance Due Date Last Done Comments CT Colonography 1970 FIT DNA/Cologuard 1970 FIT 1970 FOBT 1970 Sigmoidoscopy 1970 Pap Smear 1991 HPV/Cotest 2000 Depression Screening 03/29/2025 03/29/2024, 03/29/20 24 SDOH Screening 03/29/2025 03/29/2024 Diabetes: Hemoglobin A1C 08/02/2025 024, 12/07/2023, 07/09/2023, Additional history exists Alcohol/Substance Use Screening 09/19/2025 09/19/2024 Tobacco Screening 02/14/2026 02/14/2025 Mammogram 03/21/2026 03/21/2024, 01/22, 02/12/2022, Additional history exists Colonoscopy 06/12/2026 06/12/2021 Colorectal Cancer Screening 06/12/2026 Lipid Panel 12/07/2028 12/07/2023, 06/23, 01/15/2022 DTaP/Tdap/Td Vaccines (3 - Td or Tdap) 10/28/2031 10/28/2021, 07/09/2011, 04/01/2002 RSV Patients and Patients Aged 60 years or older (1 - 1-dose 75+ series) 2045 Hepatitis B Vaccines Completed 01/13/2003, 07/29/2002, 07/01/2002 Zoster Vaccines Completed 04/24/2022, 01/21/2022 Pneumococcal Vaccine: 50+ Years Completed 12/15/2023, 07/12/2009 COVID-19 Vaccine Completed 09/19/2024, , 11/05/2022, Additional history exists Influenza Vaccine Completed 09/19/2024, , 10/28/2022, Additional history exists Cervical Cancer Screening Discontinued HIB Vaccines Aged Out No longer eligi ble based on patient's age to complete this topic HIV Screening Discontinued HPV Vaccines Aged Out No longer eligi ble based on patient's age to complete this topic Hepatitis A Vaccines Aged Out No long er eligible based on patient's age to complete this topic Hepatitis C Screening Discontinued IPV Vaccines Aged Out No longer eligi ble based on patient's age to complete this topic Meningococcal Vaccine Aged Out No anastasia juan eligible based on patient's age to complete this topic RSV under 20 months Aged Out No longe r eligible based on patient's age to complete this topic Rotavirus Vaccines Aged Out No longer eligible based on patient's age to complete this topic Procedures Procedure Name Priority Date/Time Associated Diagnosis Comments HEMOGLOBIN A1C Routine 08/02/2024 5:05 PM EDT Prediabetes BI MAMMOGRAM SCREENING TOMOSYNTHESIS BILATERAL Routine 03/21/2024 1:10 PM EDT LIPID PANEL WITH REFLEX TO DIRECT LDL Routine 12/07/2023 10:20 AM EST Prediabetes Elevated random blood glucose level Class 1 obesity without serious comorbidity with body mass index (BMI) of 34.0 to 34.9 in adult, unspecified obesity type HM COLONOSCOPY Routine 06/12/2021 from Last 3 Months or Most Recently Relevant to Health Maintenance Results * (ABNORMAL) Hemoglobin A1c (08/02/2024 5:05 PM EDT) Hemoglobin A1c 6.1(H) <6.0 % [facility] Comment:Hemoglobin A1C Refer ence Range Adults: 4.8 - 6.0 % Non diabetic: < 6.0 % Goal: < 7.0 %Additional Action Suggested: > 8.0 %Note: Hemoglobin A1c results are invalid for patients with abnormal amounts of HbF. Blood transfusions may impact the HbA1c concentration in the patient sample. Estimated Average Glucose 128 mg/dL [facility] Comment:eAG = Estimated ave rage glucose which is %A1C expressed asaverage glucose, using the formula of the Y2F-TgrozbsAjztune Glucose study (ADAG), Diabetes Care, Vol.31,#8,Jun. 2008 Blood Venous blood specimen / Unknown 08/02/2024 5:05 PM EDT 08/02/2024 5:10 PM EDT us Marisabel Michel MD LAB BLOOD ORDERABLES Final Resul t [facility] [address] [place] [address] [phone] * BI Mammogram Screening Tomosynthesis Bilateral (03/21/2024 1:10 PM EDT) Anatomical Region Laterality Modality Breast Bilateral Mammography 03/21/2024 1:10 PM EDT Narrative 04/17/2024 6:32 AM EDT ? [facility] ? [address] ?[place] [address] ? Mammography Report ? Signed ? Patient: Radha Kimball ?MR#: ?? [id number] ? : 1970 ?Acct:[id number] ? Age/Sex: 53 / F ?ADM Date: 03/21/ ? Loc: HO.MAMMO ? Attending Dr: Marisabel Michel MD ? Ordering Physician: Anand,Marisabel MD ?Results: 1Negative ? Date of Service: 03/21/ ?Follow Up: 1 Year From Orig ?? inal Mammogram ? Procedure(s): MM tomosynthesis screening BI ?? Accession Number(s): [id number] ? cc: Marisabel Michel MD ? EXAMINATION: ?? MM SCREENING DIGITAL BREAST TOMOSYNTHESIS, BILATERAL ? CLINICAL INFORMATION: ? Screening. Asymptomatic. ? COMPARISON: ?? Mammography: This study is compared with prior exams dating back to ?? 2019. ? TECHNIQUE: ?? Digital breast tomosynthesis is [...] by Stephanie Garcia MD in OV> ? 04/17/24 0629 ? DD/ 1310 ? TD/TT: ? Immersion Metalcleaner: ? Procedure Note Clarence, Image - 04/17/2024 [facility] [address] [place] [address] Dr. Gibson, [place] [address] Mammography Report Signed Patient: Chuy AntoniozquezRadha#: [id number] : 1970Acct:[id number] Age/Sex: 53 / FADM Date: 03/21/24 [facility]: Marisabel Michel MD Ordering Physician: Marisabel Michel MDResults: 1Negative Date of Service: 03/21/24Follow Up: 1 Year From Orig inal Mammogram Procedure(s): MM tomosynthesis screening BI Accession Number(s): [id number] cc: Marisabel Michel MD EXAMINATION: MM SCREENING [...] in OV> 04/17/24 0629 DD/ 1310 TD/TT: Immersion Metalcleaner: Marisabel Michel MD IMG BI PROCEDURES Final Result * (ABNORMAL) Lipid Panel with Reflex to Direct LDL (12/07/2023 10:20 AM EST) Triglycerides 71 <150 mg/dL [facility] Comment:Desirable Triglyceri de: less than 150 mg/dLBorderline High Triglyceride 150-199 mg/dLHigh Triglyceride: 200-499 mg/dLVery High Triglyceride: greater than or equal to 5OO mg/dL Cholesterol 167 <200 mg/dL [facility] Comment:Desirable Cholestero l: less than 200 mg/dLBorderline High Cholesterol: 200-239 mg/dLHigh Cholesterol: greater than 239 mg/dL LDL Cholesterol Calculated 110(H) <100 mg/dL [facility] Comment:Desirable LDL: less than 100 mg/dLNear Optimal/Above Optimal LDL: 110- 129 mg/dLBorderline High LDL: 130-159 mg/dLHigh LDL: 160-189 mg/dLVery High LDL: greater than or equal to 190 mg/dL HDL Cholesterol 43 >40 mg/dL [facility] Comment:Desirable HDL: great er than 40 mg/dL Note: This HDL assay may give artificially low results in patients with liver disease. Blood 12/07/2023 10:2 0 AM EST 12/07/2023 10:20 AM EST us Marisabel Michel MD LAB BLOOD ORDERABLES Final Resul t [facility] [address] [place] [phone] * Colonoscopy (06/12/2021) Colonoscopy Normal Normal us George Lambert MD HEALTH MAINTENANCE Edited Result - Final from Last 3 Months or Most Recently Relevant to Health Maintenance [place] [address] [place] [address] - [employer] Care Teams Telemetry Technician Relationship Specialty Start Date End Date Marisabel Michel MD [address] [place] [phone] PCP - General Family Medicine 09/04/11
--- OUTSIDE RECORDS SUMMARY | 2025-03-14 16:59 | XMS_ITS | Encounter Summary ---
Author Organization [employer] Address [address] [place] [address] Care Team Providers Care Brush Loader And Handle Attacher Name Role Phone Marisabel Michel MD Primary Care Provider [phone] Encounter Details Date Type Department Care Team ([facility] st Contact Info) Description 10/26/2023 Orders Only [facility] [address] [place], [place] [phone] Marisabel Michel MD [address] [place], [place] [phone] Social History Tobacco Use Types Packs/Day Years [...] documented as of this encounter Care Teams Brush Loader And Handle Attacher Relationship Specialty Start Date End Date Marisabel Michel MD [address] [place] [address] PCP - General Family Medicine 09/04/11 documented as of this encounter
--- OUTSIDE RECORDS SUMMARY | 2025-03-14 16:59 | XMS_ITS | Encounter Summary ---
Author Organization [employer] Address [address] [place] [address] Care Team Providers Care Firearms Model Maker Name Role Phone Marisabel Michel MD Primary Care Provider [phone] Encounter Details Date Type Department Care Team ([facility] st Contact Info) Description 06/30/2023 Abstract [facility] [address] [place], [place] [phone] Marisabel Michel MD [address] [place] [address] Social History Tobacco Use Types Packs/Day Years Used Date Smoking Tobacco: Never Passive Smoke Exposure: Never Smokeless Tobacco: Never Depression Answer Date Recorded Patient Health Questionnaire-9 Score 2 02/24/2023 Depression Answer Date Recorded Patient Health Questionnaire-2 [...] Procedure Name Priority Date/Time Associated Diagnosis Comments COLONOSCOPY Routine 06/12/2021 documented in this encounter Results * Colonoscopy (06/12/2021) Colonoscopy Normal Normal George Lambert MD HEALTH MAINTENANCE Edited Result - Final documented in this encounter Visit Diagnoses Not on filedocumented in this encounter Additional Health Concerns Assessment Noted Time PHQ-9 Depression Total Score: 2 02/25/20 23 1:12 PM EDT documented as of this encounter Care Teams Firearms Model Maker Relationship Specialty Start Date End Date Marisabel Michel MD [address] [place] [address] PCP - General Family Medicine 09/04/11 documented as of this encounter
--- OUTSIDE RECORDS SUMMARY | 2025-03-14 16:59 | XMS_ITS | Encounter Summary ---
Author Organization [employer] Address [address] [place] [address] Care Team Providers Care Barn Manager Name Role Phone Marisabel Michel MD Primary Care Provider [phone] Reason for Visit * Reason Onset Date Comments Appointment Request 01/23/2023 Encounter Details Date Type Department Care Team ([facility] st Contact Info) Description 01/23/2023 Telephone [facility] [address] [place], [place] [phone] Marisabel Michel MD [address] [place], [place] [phone] Appointment Request Social History Tobacco Use Types Packs/Day Years [...] encounter Miscellaneous Notes * Telephone Encounter - Ramandeep Moran - 01/23/2023 3:57 PM EST Tc from pt returning phone regarding to a follow up appt with pcp. Please contact pt at [phone] documented in this encounter Plan of Treatment Not on file documented as of this encounter Visit Diagnoses Not on filedocumented in this encounter Care Teams Barn Manager Relationship Specialty Start Date End Date Marisabel Michel MD [address] [place] [address] PCP - General Family Medicine 09/04/11 documented as of this encounter
--- OUTSIDE RECORDS SUMMARY | 2025-03-14 16:59 | XMS_ITS | Encounter Summary ---
Author Organization [employer] Address [address] 7t [place] [address] Care Team Providers Care Skidder Lever Operator Name Role Phone Marisabel Michel MD Primary Care Provider [phone] Encounter Details Date Type Department Care Team (Late st Contact Info) Description 10/21/2023 Orders Only [facility] [address] [place], [place] [phone] Marisabel Michel MD 230 [place] [address] Open wound of right lower leg due to dog bite (Primary Dx); Peripheral venous insufficiency; Venous stasis dermatitis of both lower extremities Social History Tobacco Use Types Packs/Day Years [...] as of this encounter Visit Diagnoses Diagnosis Open wound of right lower leg due to dog bite- Primary Peripheral venous insufficiency Unspecified venous (peripheral) insufficiency Venous stasis dermatitis of both lower extremities documented in this encounter Additional Health Concerns Assessment Noted Time PHQ-9 Depression Total Score: 2 02/25/20 23 1:12 PM EDT documented as of this encounter Care Teams Skidder Lever Operator Relationship Specialty Start Date End Date Marisabel Michel MD [address] [place] [phone] PCP - General Family Medicine 09/04/11 documented as of this encounter
--- OUTSIDE RECORDS SUMMARY | 2025-03-14 16:59 | XMS_ITS | Encounter Summary ---
Author Organization [employer] Address [address] 7t [place] [address] Care Team Providers Care Car Blocker Name Role Phone Marisabel Michel MD Primary Care Provider [phone] Encounter Details Date Type Department Care Team ([facility] st Contact Info) Description 08/23/2024 Orders Only [facility] 230 [place], [place] [phone] Marisabel Michel MD 230 [place], [place] [phone] Social History Tobacco Use Types Packs/Day Years [...] documented as of this encounter Care Teams Car Blocker Relationship Specialty Start Date End Date Marisabel Michel MD 230 [place] [address] PCP - General Family Medicine 09/04/11 documented as of this encounter
== END 2025-03-14 14:53 | disposition home or self-care (01) ==
LOC: HO.HSMS 14:07
PROVIDERS: PCP Family Medicine; Visit Provider Nurse Practitioner Family
DX: G47.33 Obstructive sleep apnea (adult) (pediatric) (principal); R06.01 Orthopnea; Z86.69 Personal history of other diseases of the nervous system and sense organs; M54.2 Cervicalgia; R29.898 Other symptoms and signs involving the musculoskeletal system
CPT/HCPCS: 99214

== ENCOUNTER → 2025-03-14 14:06 | Outpatient (BNVA) | payer OTHER, SELFPAY | PROVIDERS: PCP Family Medicine; Visit Provider Nurse Practitioner Family | DX: G47.33 Obstructive sleep apnea (adult) (pediatric) (principal); R06.01 Orthopnea; R29.898 Other symptoms and signs involving the musculoskeletal system; M54.2 Cervicalgia; Z86.69 Personal history of other diseases of the nervous system and sense organs | CPT/HCPCS: 99212 ==

== ENCOUNTER 2025-04-05 14:22 | Outpatient (REF) | payer OTHER, SELFPAY ==
--- NOTE | ~2025-04-05 | US_ITS ---
CLINICAL HISTORY: N20.0 - Calculus of kidney US Renal Comparison: US/SR - US RENAL BI - 03/29/24 13:24 EDT Findings: Right superior pole calculus measuring 7 mm. Left kidney normal size and echotexture, 9.0 cm length. No collecting system dilatation of either kidney. Normal color Doppler. IMPRESSION: 1. No acute process. 2. Nonobstructing right superior pole renal calculus. This document has been electronically signed by: Luci Colon MD on 04/05/2025 15:59:00
--- OUTSIDE RECORDS SUMMARY | 2025-04-05 14:25 | XMS_ITS | Encounter Summary ---
Author Organization [employer] Address [address] 7t [place] [address] Care Team Providers Care Real Estate Services Administrator Name Role Phone Marisabel Michel MD Primary Care Provider [phone] Encounter Details Date Type Department Care Team ([facility] st Contact Info) Description 06/30/2024 Orders Only [facility] [address] [place], [place] [phone] Marisabel Michel MD 230 [place] [address] Prediabetes (Primary Dx); Primary hypertension; Acute right [...] as of this encounter Plan of Treatment Upcoming Encounters Date Type Department Care Team (Late st Contact Info) Description 06/05/2025 1:45 PM EDT Office Visit [facility] [address] [place], [place] [phone] Marisabel Michel MD [address] [place], [place] [phone] documented as of this encounter Procedures Procedure [...] PM EDT) Hemoglobin A1c 6.1(H) <6.0 % [facility] Comment:Hemoglobin A1C Refer ence Range Adults: 4.8 - 6.0 % Non diabetic: < 6.0 % Goal: < 7.0 %Additional Action Suggested: > 8.0 %Note: Hemoglobin A1c results are invalid for patients with abnormal amounts of HbF. Blood transfusions may impact the HbA1c concentration in the patient sample. Estimated Average Glucose 128 mg/dL [facility] Comment:eAG = Estimated ave rage glucose which is %A1C expressed asaverage glucose, using the formula of the S8D-KmfyjxuAxqwxvo Glucose study (ADAG), Diabetes Care, Vol.31,#8,Jun. 2007 Blood Venous blood specimen / Unknown 08/02/2024 5:05 PM EDT 08/02/2024 5:10 PM EDT us Marisabel Michel MD LAB BLOOD ORDERABLES Final Resul t Performing Organization Address City/[facility]/ZIP Co de Phone Number [facility] [address] [place] [phone] * (ABNORMAL) TSH with Reflex to Free T4 (07/15/2024 3:24 PM EDT) TSH reflex Free T4 0.19(L) 0.32 - 4.0 uIU/mL [facility] Blood 07/15/2024 3:24 PM EDT 07/15/2024 3:26 PM EDT us Marisabel Michel MD LAB BLOOD ORDERABLES Final Resul t [facility] [address] [place] [phone] * (ABNORMAL) Sed Rate by Modified Westergren (07/15/2024 3:24 PM EDT) Erythrocyte Sedimentation Rate 71(H) 0 - 20 MM/HR [facility] Comment:Patients with polycy themia and many hemoglobin abnormalitiesmay have depressed sed rates whereas patients with anemiamay have elevated sed rates. Blood Venous blood specimen / Unknown 07/15/2024 3:24 PM EDT 07/15/2024 3:26 PM EDT Marisabel Michel MD LAB BLOOD ORDERABLES Final Resul t Performing Organization Address [facility] Co de Phone Number [facility] [address] [place] [phone] * (ABNORMAL) C-reactive Protein (07/15/2024 3:24 PM EDT) C Reactive Protein 18.68(H) < or = 0.50 mg/dL [facility] Blood Venous blood specimen / Unknown 07/15/2024 3:24 PM EDT 07/15/2024 3:26 PM EDT Marisabel Michel MD LAB BLOOD ORDERABLES Final Resul t Performing Organization Address [facility] de Phone Number [facility] [address] [place] [phone] * Uric acid (07/15/2024 3:24 PM EDT) Uric Acid 4.8 2.4 - 5.7 mg/dL [facility] Blood Venous blood specimen / Unknown 07/15/2024 3:24 PM EDT 07/15/2024 3:26 PM EDT Marisabel Michel MD LAB BLOOD ORDERABLES Final Resul t Performing Organization Address [facility] Co de Phone Number [facility] [address] [place] [phone] * (ABNORMAL) Comprehensive Metabolic Panel (07/15/2024 3:24 PM EDT) Sodium 141 135 - 145 mmol/L [facility] Potassium 3.5 3.3 - 5.1 mmol/L [facility] Chloride 105 96 - 108 mmol/L [facility] Carbon Dioxide 20(L) 22 - 29 mmol/L [facility] Anion Gap 20 12 - 20 [facility] Urea Nitrogen (BUN) 13 9 - 16 mg/dL [facility] Creatinine, Serum 0.81 0.5 - 1.4 mg/dL [facility] Estimated Glomerular Filt Rate >60 [facility] Comment:NOTE: For -Am erican individuals, multiply the result by 1.210.Chronic Kidney Disease: Estimated GFR < 60 mL/min/1.88l4Ggpmyn Kidney Disease: Estimated GFR < 15 mL/min/1.73m2 Glucose 91 60 - 115 mg/dL [facility] Calcium 10.5(H) 8.4 - 10.2 mg/dL [facility] Bilirubin, Total 0.4 0.0 - 1.0 mg/dL [facility] Aspartate Amino Transferase 17 5 - 31 U/L [facility] Alanine Aminotransferase 18 0 - 31 U/L [facility] Total Protein 8.5(H) 6.5 - 8.0 g/dL [facility] Albumin Level 4.3 3.5 - 5.0 g/dL [facility] Alkaline Phosphatase 87 39 - 117 U/L [facility] Blood Venous blood specimen / Unknown 07/15/2024 3:24 PM EDT 07/15/2024 3:26 PM EDT us Marisabel Michel MD LAB BLOOD ORDERABLES Final Resul t [facility] [address] [place] [phone] * (ABNORMAL) CBC auto differential (07/15/2024 3:24 PM EDT) White Blood Count 8.9 4.8 - 10.8 X10*3/uL [facility] Red Blood Count 4.49 4.20 - 5.50 X10*6/uL [facility] Hemoglobin 12.9 12.0 - 16.0 g/dl [facility] Hematocrit 39.1 37.0 - 47.0 % [facility] Mean Corpuscular Volume 87.1 80.0 - 98.0 fL [facility] Mean Corpuscular Hemoglobin 28.7 27.0 - 33.0 pg [facility] Mean Corpuscular HGB Conc 33.0 31.0 - 35.0 g/dl [facility] Red Cell Distribution Width 13.7 11.0 - 16.0 % [facility] Platelet Count 223 160 - 400 X10*3/uL [facility] Mean Platelet Volume 13.1(H) 9.4 - 12.3 fL [facility] Neutrophils Percent Auto 68.4 45 - 73 % [facility] Imm Gran Pct Auto 0.6(H) 0.0 - 0.4 % [facility] Lymphocytes Percent Auto 17.3(L) 20 - 40 % [facility] Monocytes Percent Auto 10.3 2 - 11 % [facility] Eosinophils Percent Auto 3.1 0 - 4 % [facility] Basophils Percent Auto 0.3 0 - 2 % [facility] NRBC Pct Auto 0.0 0.0 - 0.2 /100WBC [facility] Neutrophils Absolute Auto 6.1 2.0 - 8.3 x10*3/uL [facility] Imm Gran Abs Auto 0.05(H) 0.00 - 0.03 X10*3/uL [facility] Lymphocytes Absolute Auto 1.6 1.2 - 4.9 X10*3/uL [facility] Monocytes Absolute Auto 0.9 0.1 - 1.2 X10*3/uL [facility] Eosinophils Absolute Auto 0.3 0.0 - 0.4 X10*3/uL [facility] Basophils Absolute Auto 0.0 0.0 - 0.2 X10*3/uL [facility] NRBC Abs Auto 0.000 0.0 - 0.012 X10*3/uL [facility] Blood Venous blood specimen / Unknown 07/15/2024 3:24 PM EDT 07/15/2024 3:26 PM EDT us Marisabel Michel MD LAB BLOOD ORDERABLES Edited Resu lt - Final [facility] [address] [place] [phone] * VASC Lower Extremity Venous Duplex Bilateral (07/15/2024 2:00 PM EDT) 07/15/2024 2:00 PM EDT Narrative [facility] - 07/15/2024 2:49 PM EDT ? [facility] ?[address] ?[place] [address] ? Ultrasound Report ? Signed ? Patient: Radha Kimball ?MR#: ?? [id number] ? : 1970 ?Acct:[id number] ? Age/Sex: 53 / F ?ADM Date: 07/15/24 ? Loc: HO.US ? Attending Dr: Sebastian Matta MD ? Ordering Physician: Sebastian Matta MD ?? Date of Service: 07/15/24 ?? Procedure(s): US venous duplex LE BI ?? Accession Number(s): [id number] ? cc: Sebastian Matta MD; Marisabel Michel [...] ? There is no Robert's cyst. ? US/ venous duplex LE BI ?? IMPRESSION: ?? No evidence of deep venous thrombosis in the bilateral lower ?? extremities with the caveat of limited evaluation as above. ? Electronically signed by: ??Dina Carroll MD ??07/15/2024 02:45 PM EDT ? Dictated By: ?Filomena Carroll ? Signed By: ?<Electronically signed by Filomena ??Carly in OV> ? 07/15/24 1445 ? DD/ 1400 ? TD/TT: 07/15/24 1420 ? Cemetery Worker: ? Procedure Note Donthiago, Image - 07/15/2024 [place] [address] Ultrasound Report Signed Patient: Radha Kimball#: [id number] : 1970Acct:[id number] Age/Sex: 53 / FADM Date: 07/15/24 Loc: HO.US Attending Dr: Sebastian Matta MD Ordering Physician: Sebastian Matat MD Date of Service: 07/15/24 Procedure(s): US venous duplex LE BI Accession Number(s): [id number] cc: Sebastian Matta MD; Marisabel Michel MD [...] Dina Carroll MD 07/15/2024 02:45 PM EDT RP Dictated By: Filomena Carroll Signed By: <Electronically signed by Filomena Carroll in OV> 07/15/24 1445 DD/ 1400 TD/TT: 07/15/24 1420 Cemetery Worker: [facility] External Provider CV VASC ULAR PROCEDURES Final Result Performing Organization Address City/State/[facility] Co de Phone Number [facility] [address] [place] [phone] documented in this encounter Visit Diagnoses Diagnosis Prediabetes- Primary Other abnormal glucose Primary hypertension Unspecified essential hypertension Acute right ankle pain Fever, unspecified fever cause documented in this encounter Additional Health Concerns Assessment Noted Time PHQ-9 Depression Total Score: 0 03/29/20 24 3:23 PM EDT documented as of this encounter Care Teams Real Estate Services Administrator Relationship Specialty Start Date End Date Marisabel Michel MD [address] [place] [address] PCP - General Family Medicine 09/04/11 documented as of this encounter
--- OUTSIDE RECORDS SUMMARY | 2025-04-05 14:25 | XMS_ITS | Encounter Summary ---
Author Organization [employer] Address [address] [facility] 7t [place] [address] Care Team Providers Care Videographer Name Role Phone Marisabel Michel MD Primary Care Provider [phone] Reason for Referral * Imaging (Urgent) - Closed Specialty Diagnoses / Procedures Referred By Contac t Referred To Contact Radiology Diagnoses Acute pain of right knee Procedures MR Knee w/o Contrast Right Marisabel Michel MD [address] [place] [address] Phone: tel: fax: [facility] [address] [place] [address] Phone: tel: fax: Referral ID Status Reason Start Date Expiration Date Visits Re quested Visits Authorized [id number] Closed 05/18/2024 05/18/2025 1 1 Encounter Details Date Type Department Care Team (Late st Contact Info) Description 05/18/2024 Orders Only [facility] [address] [place], [place] [phone] Marisabel Michel MD [address] [place] [address] Acute pain of right knee (Primary Dx); [...] Description 06/05/2025 1:45 PM EDT Office Visit [facility] [address] [place] [address] Marisabel Michel MD [address] [place] [address] documented as of this encounter Procedures Procedure Name Priority Date/Time Associated Diagnosis Comments MR KNEE WO CONTRAST RIGHT Urgent 05/25/2024 3:33 PM EDT Acute pain of right knee documented in this encounter Results * MR Knee w/o Contrast Right (05/25/2024 3:33 PM EDT) Anatomical Region Laterality Modality Magnetic Resonan ce 05/25/2024 3:33 PM EDT Narrative 05/25/2024 4:16 PM EDT ? [facility] ?[address] ?[place] [address] ? Magnetic Resonance Report ? Signed ? Patient: Radha Kimball ?MR#: ?? [id number] ? : 1970 ?Acct:[id number] ? Age/Sex: 53 / F ?ADM Date: 05/25/24 ? Loc: HO.MRI ? Attending Dr: Marisabel Michel MD ? Ordering Physician: Marisabel Michel MD ?? Date of Service: 05/25/24 ?? Procedure(s): MR knee RT wo con ?? Accession Number(s): [id number] ? cc: Marisabel Michel MD ? EXAMINATION: [...] by Isiah Suazo MD in OV> ? 05/25/243 ? DD/ 1533 ? TD/TT: ? Milk Bottler: DM ? Procedure Note Clarence, Sana - 05/25/2024 [place] [address] Magnetic Resonance Report Signed Patient: Radha Kimball#: [id number] : 1970Acct:[id number] Age/Sex: 53 / FADM Date: 05/25/24 Loc: HO.MRI Attending Dr: Marisabel Michel MD Ordering Physician: Marisabel Michel MD Date of Service: 05/25/24 Procedure(s): MR knee RT wo con Accession Number(s): [id number] cc: Marisabel Michel MD EXAMINATION: MR KNEE [...] MD inOV> 05/25/24 1613 DD/ 1533 TD/TT: Milk Bottler: SANDHYA us Marisabel Michel MD IMG MRI PROCEDURES Final Result documented in this encounter Visit Diagnoses Diagnosis Acute pain of right knee- Primary Primary hypertension Unspecified essential hypertension documented in this encounter Additional Health Concerns Assessment Noted Time PHQ-9 Depression Total Score: 0 03/29/20 24 3:23 PM EDT documented as of this encounter Care Teams Videographer Relationship Specialty Start Date End Date Marisabel Michel MD [address] [place] [address] PCP - General Family Medicine 09/04/11 documented as of this encounter
--- OUTSIDE RECORDS SUMMARY | 2025-04-05 14:25 | XMS_ITS | Encounter Summary ---
Author Organization [employer] Address [address] 7[address] [place] [address] Care Team Providers Care Glass Ribbon Machine Operator Assistant Name Role Phone Marisabel Michel MD Primary Care Provider [phone] Encounter Details Date Type Department Care Team ([facility] st Contact Info) Description 03/18/2024 Orders Only [facility] [address] [place], [place] [phone] Marisabel Michel MD [address] [place], [place] [phone] Social History Tobacco Use Types Packs/Day Years [...] Description 06/05/2025 1:45 PM EDT Office Visit [facility] [address] [place] [address] Marisabel Michel MD [address] [facility] [place] [address] documented as of this encounter Procedures Procedure Name Priority Date/Time Associated Diagnosis Comments BI MAMMOGRAM SCREENING TOMOSYNTHESIS BILATERAL Routine 03/21/2024 1:10 PM EDT documented in this encounter Results * BI Mammogram Screening Tomosynthesis Bilateral (03/21/2024 1:10 PM EDT) Anatomical Region Laterality Modality Breast Bilateral Mammography 03/21/2024 1:10 PM EDT Narrative 04/17/2024 6:32 AM EDT ? [facility] ? [address] ?[place] [address] ? Mammography Report ? Signed ? Patient: Chuy Vera,Radha ?MR#: ?? [id number] ? : 1970 ?Acct:[id number] ? Age/Sex: 53 / F ?ADM Date: 04/29/24 ? Loc: HO.MAMMO ? Attending Dr: Marisabel Michel MD ? Ordering Physician: Marisabel Michel MD ?Results: 1Negative ? Date of Service: 03/21/24 ?Follow Up: 1 Year From Orig ?? inal Mammogram ? Procedure(s): MM tomosynthesis screening BI ?? Accession Number(s): [id number] ? cc: Marisabel Michel MD ? EXAMINATION: [...] by Stephanie Garcia MD in OV> ? 05//24 0629 ? DD/DT: //24 1310 ? TD/TT: ? News Content Specialist: ? Procedure Note Donotuseinterpreter, Image - 04/17/2024 [facility] [address] [place] [address] Mammography Report Signed Patient: Radha KimballMR#: [id number] : 1970Acct:[id number] Age/Sex: 53 / FADM Date: 03/21/24 Loc: HO.MAMMO Attending Dr: Marisabel Michel MD Ordering Physician: Marisabel Michel MDResults: 1Negative Date of Service: 03/21/24Follow Up: 1 Year From Orig inal Mammogram Procedure(s): MM tomosynthesis screening BI Accession Number(s): [id number] cc: Marisabel Michel MD EXAMINATION: MM SCREENING [...] in OV> 04/17/24 0629 DD/ 1310 TD/TT: News Content Specialist: us Marisabel Michel MD IMG BI PROCEDURES Final Result documented in this encounter Visit Diagnoses Not on filedocumented in this encounter Additional Health Concerns Assessment Noted Time PHQ-9 Depression Total Score: 2 02/25/20 23 1:12 PM EDT documented as of this encounter Care Teams Glass Ribbon Machine Operator Assistant Relationship Specialty Start Date End Date Marisabel Michel MD [address] [place] [address] PCP - General Family Medicine 09/04/11 documented as of this encounter
--- OUTSIDE RECORDS SUMMARY | 2025-04-05 14:25 | XMS_ITS | Encounter Summary ---
Author Organization [employer] Address [address] [facility] 7t [place] [address] Care Team Providers Care Home Care Consultant Name Role Phone Marisabel Michel MD Primary Care Provider [phone] Reason for Referral * Consultation (Routine) - Closed Specialty Diagnoses / Procedures Referred By Vee carter Referred To Contact Diagnoses Sinusitis, unspecified chronicity, unspecified location Marisabel Michel MD [address] [place] [address] Phone: tel: fax: Jamshid Aly [address] [place] [address] Drive [address] [place], [place] [address] Phone: tel: fax: Referral ID Status Reason Start Date Expiration Date V isits Requested Visits Authorized [id number] Closed Specialty Services Required 04/22/2024 04/22/2025 1 1 Encounter Details Date Type Department Care Team (Late st Contact Info) Description 04/22/2024 Orders Only [facility] MEDICINE [address] [place], [place] [phone] Marisabel Michel MD [address] [place], [place] [phone] Sinusitis, unspecified chronicity, unspecified location (Primary Dx) [...] Description 06/05/2025 1:45 PM EDT Office Visit [facility] MEDICINE [address] [place] [address] Marisabel Michel MD [address] [place] [address] Scheduled Referrals Name Type Priority Associated Diagnoses [...] EDT Narrative 05/10/2024 5:32 PM EDT ? [facility] ?[address] ?[place] [address] ? Ultrasound Report ? Signed ? Patient: Radha Kimball ?MR#: ?? [id number] ? : 1970 ?Acct:[id number] ? Age/Sex: 53 / F ?ADM Date: 05/10/24 ? Loc: HO.XRAY ? Attending Dr: Marisabel Michel MD ? Ordering Physician: Marisabel Michel MD ?? Date of Service: 05/10/24 ?? Procedure(s): US venous duplex LE RT ?? Accession Number(s): [id number] ? cc: Marisabel Michel MD ? EXAMINATION: [...] the right lower extremity. ? Dictated By: ?Teo Pratt MD ? Signed By: ?<Electronically signed by Teo Pratt MD in OV> ?05/10/24 1728 ? DD/ 1648 ? TD/TT: ? Nurse Anesthetist: BA ? Procedure Note Donotuseinterpreter, Image - 05/10/[address] [address] Ultrasound Report Signed Patient: Radha KimballMR#: [id number] : 1970Acct:[id number] Age/Sex: 53 / FADM Date: 05/10/24 Loc: HO.SAM[facility] Attending Dr: Marisabel Michel MD Ordering Physician: Marisabel Michel MD Date of Service: 05/10/24 Procedure(s): US venous duplex LE RT Accession Number(s): [id number] cc: Marisabel Michel MD EXAMINATION: US VENOUS [...] in OV> 05/10/24 1728 DD/ 1648 TD/TT: Nurse Anesthetist: JUANITA Marisabel Michel MD IMG US PROCEDURES Final Result documented in this encounter Visit Diagnoses Diagnosis Sinusitis, unspecified chronicity, unspecified location- Primary documented in this encounter Additional Health Concerns Assessment Noted Time PHQ-9 Depression Total Score: 0 03/29/20 24 3:23 PM EDT documented as of this encounter Care Teams Home Care Consultant Relationship Specialty Start Date End Date Marisabel Michel MD [address] [place] [address] PCP - General Family Medicine 09/04/11 documented as of this encounter
--- OUTSIDE RECORDS SUMMARY | 2025-04-05 14:25 | XMS_ITS ---
Author Organization [facility] Address [address] [place] [address] Care Team Providers Care Separator Inserter Name Role Phone Marisabel Michel Primary Care Provider Yoni Glover Unavailable [phone] Allergies Allergen (clinical drug ingredient) Drug/Non Drug [...] Orally Once a day Active Saline Nasal [place] as needed A ctive SUMAtriptan Succinate Active Naproxen Active Ondansetron HCl Acti ve PriLOSEC OTC Active ProAir HFA as needed Active Proctofoam as needed Active Ipratropium Hercules Active Jock Itch 1 % 1 application [...] Type 2 diabetes mellitus with peripheral angiopathy (584641318) Type 2 diabetes mellitus with diabetic peripheral angiopathy without gangrene (E11.51) Active confirmed Q7(A), Q8(2B), Q9(1B,2C) Problem Acquired hammer toe of right foot (609304053490 9105) Other hammer toe(s) (acquired), right foot (M20.41) Active confirmed Problem Acquired hammer toe of left foot (923348536967 9103) Other hammer toe(s) (acquired), left foot (M20.42) Active confirmed Problem Ulcer of toe of left foot (disorder) (164436859316 37456) Skin ulcer of toe of left foot, limited to breakdown of skin (L97.521) Active confirmed Response to treatment Nonapplicable Vital Signs Height 5ft in 01/30/2025 Weight 178 lbs 01/30/2025 BMI 34.76 kg/m2 01/30/2025 Blood pressure systolic 127 mm Hg 01/31/20 25 Blood pressure diastolic 76 mm Hg 025 Procedures Procedure Date Ordered Date Performed Result Body Sit e 50861-GESBCDZ NAIL, 6 OR MORE 01/30/2025 N/A 75244- Debride <25 sq cm 01/30/2025 N/A 64093-ZAIO SKIN LESIONS, 2 TO 4 01/30/2025 N/A Encounters Encounter Location Date Provider Diagnosis [facility] [place] [address] [place] [phone] 01/30/2025 Yoni Bhatt Type 2 diabetes mellitus [...] INSTRUCTIONS.pdf) Pending Test Test Name Order Date 61207-LJCXYRO NAIL, 6 OR MORE 01/30/2025 81529- Debride <25 sq cm 01/30/2025 03718-DYJZ SKIN LESIONS, 2 TO 4 01/31/20 25 Next Appt Details Follow Up: 3 Months,To see Gabino Bustillo, Reason: Provider Name:Yoni Bhatt , 05/08/2025 01:30:00 PM, [address] [facility], [address], [place], [address], Procedure Notes * Category Sub-Category Detail Notes [...] use of a nail nipper and/or dremel-type tool grinder operator surface, to a more viable healthy nail plate [...] to maintain effectiveness in symptomatic relief - 81120 Debride skin< 25 sq cm Open wound [...] of the wound post debridement is stable (43268) Keratoma Treatment Parring or Cutting o f [...] instrumentation by the physician of record - 90976, Q8 Progress Notes * Radha JACKDOB: 1 (54 yo F)Acc No.[id number]:01/30/2025 Progress Note Patient:?Radha JACK Provider:?Yoni Bhatt DPM :1970???Age:54 Y???Sex:Female D ate:01/30/2025 Address:[address] [place], [place] [address] Pcp:Marisabel Michel Subjective: * Chief Complaints: * [...] * Hospitalization/Major Diagno stic Procedure:?ER in [place] 02/2018[facility]- Pain in ankle- negetive ultrasound and x-ray 04/2019[facility]- leg infection 07/19-07/25 * Family History:?Mother: james [...] Gas Relief hydrOXYzine HCl Ibuprofen Ipratropium-Albuterol Ipratropium Hercules Jock Itch 1 % Cream 1 application to affected area Externally Twice a day Ketotifen Fumarate Montelukast Sodium Naproxen Ondansetron HCl PriLOSEC OTC ProAir HFA , Notes to Pharmacist: as neededProctofoam , Notes to Pharmacist: as neededSaline Nasal [place] , Notes to Pharmacist: as neededSUMAtriptan Succinate [...] HCl Taking Ibuprofen Taking Ipratropium-Albuterol Taking Ipratropium Hercules Taking Jock Itch 1 % Cream 1 application to affected area Externally Twice a day Taking Ketotifen Fumarate Taking Montelukast Sodium Taking Naproxen Taking Ondansetron HCl Taking PriLOSEC OTC Taking ProAir HFA , Notes to Pharmacist: as neededTaking Proctofoam , Notes to Pharmacist: as neededTaking Saline Nasal [place] , Notes to Pharmacist: as neededTaking SUMAtriptan [...] mellitus with diabetic peripheral angiopathy without gangrene?Procedure: 19735-CXJE SKIN LESIONS, 2 TO 4 3.?Tinea unguium?Procedure: 53755-NTCTUJK NAIL, 6 OR MORE 4.?Skin ulcer of toe of left foot, limited to breakdown of skin?Procedure: 54123- Debride <25 sq cm Notes: Patient Educated [...] use of a nail nipper and/or dremel-type tool grinder operator surface, to a more viable healthy nail plate [...] to maintain effectiveness in symptomatic relief - 38734.?Debride skin< 25 sq cm:?Open wound?Physician of record [...] of the wound post debridement is stable (37268).?Keratoma Treatment:?Parring or Cutting of Benign Hyperkeratotic Lesion(s)?(-56) [...] instrumentation by the physician of record - 22049, Q8.? * Procedure Codes:?92782 DEBRI DE NAIL, 6 OR MORE, Modifiers: XS 02184 ACTIVE WOUND CARE/20 CM OR <, Modifiers: XS 69674 TRIM SKIN LESIONS, 2 TO 4, Modifiers: [...] Bhatt DPM Date:?2024 Generated for Deny lou/Klaudia/David on:?04/05/2025 02:25 PM EDT History and Physical Notes * [...]
--- OUTSIDE RECORDS SUMMARY | 2025-04-05 14:25 | XMS_ITS | Encounter Summary ---
Author Organization [employer] Address [address] [facility] 7t [place] [address] Care Team Providers Care Sandal Parts Assembler Name Role Phone Marisabel Michel MD Primary Care Provider [phone] Reason for Referral * Imaging (Urgent) - Canceled Specialty Diagnoses / Procedures Referred By Vee t Referred To Contact Radiology Diagnoses Elevated erythrocyte sedimentation rate Acute right ankle pain Cellulitis of right leg Procedures MR Ankle w/ and w/o Contrast Right Marisabel Michel MD [address] [place] [address] Phone: tel: fax: [address] Phone: tel: fax: Referral ID Status Reason Start Date Expiration Date V isits Requested Visits Authorized [id number] Canceled 07/19/2024 07/19/2025 1 1 * Imaging (Urgent) - New Request Specialty Diagnoses / Procedures Referred By Contac t Referred To Contact Radiology Diagnoses Elevated erythrocyte sedimentation rate Acute right ankle pain Cellulitis of right leg Procedures MRI LOWER LEG / TIBIA FIBULA RIGHT W WO CONTRAST Marisabel Michel MD [address] [place] [address] Phone: tel: fax: [address] Phone: tel: fax: Referral ID Status Reason Start Date Expiration Date V isits Requested Visits Authorized [id number] New Request 07/19/2024 07/19/2025 1 1 Encounter Details Date Type Department Care Team (Late st Contact Info) Description 07/15/2024 Orders Only [facility] MEDICINE [address] [place] [address] Marisabel Michel MD [address] [place] [address] Elevated erythrocyte sedimentation rate (Primary Dx); Cellulitis [...] Description 06/05/2025 1:45 PM EDT Office Visit [facility] MEDICINE [address] [place] [address] Marisabel Michel MD [address] [place] [address] Scheduled Orders Name Type Priority Associated Diagnoses [...] Vitamin D 25-OH Total 54.6 >30 ng/mL [facility] Comment:Health Based Referen ce Values*< 20 ng/mL Jwpibjgrn26-40 ng/mL Insufficient> 30 ng/mL Sufficient*Ashok SMITH. N [...] ORDERABLES Final Resul t Performing Organization Address City/[facility]/ZIP Co de Phone Number [facility] [address] [place] [phone] * (ABNORMAL) PTH, Intact Without Calcium (08/02/2024 5:05 PM EDT) Parathyroid Hormone, Intact 78.5(H) 8.7 - 77.1 pg/mL [facility] Blood Venous blood specimen / Unknown 08/02/2024 5:05 PM EDT 08/02/2024 5:10 PM EDT Marisabel Michel MD LAB BLOOD ORDERABLES Final Resul t Performing Organization Address City/[facility]/ZIP Co de Phone Number [facility] [address] [place] [phone] * TSH (08/02/2024 5:05 PM EDT) Thyroid Stimulating Hormone 2.46 0.32 - 4.0 uIU/mL [facility] Comment:TSH 3rd Generation ( [facility]) Blood Venous blood specimen / Unknown 08/02/2024 5:05 PM EDT 08/02/2024 5:10 PM EDT Marisabel Michel MD LAB BLOOD ORDERABLES Final Resul t Performing Organization Address [facility]/ZIP Co de Phone Number [facility] [address] [place] [phone] * (ABNORMAL) Sed Rate by Modified Westergren (08/02/2024 5:05 PM EDT) Erythrocyte Sedimentation Rate 71(H) 0 - 20 MM/HR [facility] Comment:Patients with polycy themia and many hemoglobin abnormalitiesmay have depressed sed rates whereas patients with anemiamay have elevated sed rates. Blood Venous blood specimen / Unknown 08/02/2024 5:05 PM EDT 08/02/2024 5:10 PM EDT us Marisabel Michel MD LAB BLOOD ORDERABLES Final Resul t Performing Organization Address [facility] Co de Phone Number [facility] [address] [place] [phone] * (ABNORMAL) C-reactive Protein (08/02/2024 5:05 PM EDT) C Reactive Protein 1.90(H) < or = 0.50 mg/dL [facility] Blood Venous blood specimen / Unknown 08/02/2024 5:05 PM EDT 08/02/2024 5:10 PM EDT Marisabel Michel MD LAB BLOOD ORDERABLES Final Resul t Performing Organization Address [facility]/ZIP Co de Phone Number [facility] [address] [place] [phone] * T4, Free (07/15/2024 3:24 PM EDT) Free T4 (Free Thyroxine) 1.45 0.71 - 1.85 ng/dL [facility] Blood Venous blood specimen / Unknown 07/15/2024 3:24 PM EDT 07/15/2024 3:26 PM EDT Marisabel Michel MD LAB BLOOD ORDERABLES Final Resul t Performing Organization Address City/State/[facility] Co de Phone Number [facility] [address] [place] [phone] documented in this encounter Visit Diagnoses Diagnosis Elevated erythrocyte sedimentation rate- Primary Elevated sedimentation rate Cellulitis of lower extremity, unspecified laterality Abnormal TSH Fever, unspecified fever cause Acute right ankle pain Cellulitis of right leg documented in this encounter Additional Health Concerns Assessment Noted Time PHQ-9 Depression Total Score: 0 03/29/20 24 3:23 PM EDT documented as of this encounter Care Teams Sandal Parts Assembler Relationship Specialty Start Date End Date Marisabel Michel MD [address] [place] [address] PCP - General Family Medicine 09/04/11 documented as of this encounter
--- OUTSIDE RECORDS SUMMARY | 2025-04-05 14:25 | XMS_ITS | Encounter Summary ---
Author Organization [employer] Address [address] [facility] [address] 7t [place] [address] Care Team Providers Care Bottom Finisher Name Role Phone Marisabel Michel MD Primary Care Provider [phone] Reason for Visit * Reason Comments Med Refill Encounter Details Date Type Department Care Team ([facility] st Contact Info) Description 11/06/2023 Refill [facility] MEDICINE [address] [place], [place] [phone] Vicky Sage, ANP [address] [place], [place] [phone] Social History Tobacco Use Types Packs/Day Years [...] Description 06/05/2025 1:45 PM EDT Office Visit [facility] MEDICINE [address] [place] [address] Marisabel Michel MD [address] [place] [address] documented as of this encounter Visit Diagnoses Not on filedocumented in this encounter Additional Health Concerns Assessment Noted Time PHQ-9 Depression Total Score: 2 02/25/20 23 1:12 PM EDT documented as of this encounter Care Teams Bottom Finisher Relationship Specialty Start Date End Date Marisabel Michel MD [address] [place] [address] PCP - General Family Medicine 09/04/11 documented as of this encounter
--- OUTSIDE RECORDS SUMMARY | 2025-04-05 14:25 | XMS_ITS | Patient Health Record ---
Author Organization [facility] Address [address] [place] [address] Care Team Providers Care News Assistant Name Role Phone Anand DIOR, Marisabel Primary Care Provider George Hyman Unavailable [phone] Reason For Referral No Information Medications Medication [...] tablet Orally Once a day Active Nystatin 411230 UNIT/ML 4 ml Mouth/Throa t Twice a [...] W/U Status Risk Notes Problem Esophageal reflux (170454994) Esophageal reflux (K21.9) Active confirmed Problem 205683359 Encounter for screening for malignant neoplasm of colon (Z12.11) Active confirmed Problem 380327710 Gastroesophageal reflux disease, esophagitis presence not specified (K21.9) Active confirmed Problem 179572294 Family history o f colon cancer (Z80.0) Active confirmed Problem Benign neoplasm of stomach (87500021) Gastric polyps (K31.7) Active confirmed Problem 87112685 Oropharyngeal dysphagia (R13.12) Active confirmed Problem 889743373 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 Problem Diverticulosis of sigmoid colon (372473648) Diverticulosis of sigmoid colon (K57.30) Active confirmed [...] Insured Coverage Start Date Coverage End Date [facility] [address] [place] [address] [id number] CARL JACK Self - patient is the insured MEDICAID OF [employer] [address] [place] [id number] CARL JACK Self - patient is the insured Medical (General) History Medical History History ICD Code Alopecia Positive H.pylori serology in 07/2013-Rx' d with PPI and antibiotics Asthma Denies [place],DM,CVA,renal disease Kidney stones-[facility] Neg colonoscopy in 2004, [...]
--- OUTSIDE RECORDS SUMMARY | 2025-04-05 14:26 | XMS_ITS | Encounter Summary ---
Author Organization [employer] Address [address] [facility] 7t [place] [address] Care Team Providers Care Bingo Caller Name Role Phone Marisabel Michel MD Primary Care Provider [phone] Encounter Details Date Type Department Care Team (Late st Contact Info) Description 01/08/2023 Orders Only [facility] MEDICINE [address] [place] [address] [phone] Marisabel Michel MD [address] [place] [address] [phone] Allergic rhinitis due to other allergic trigger, [...] Description 06/05/2025 1:45 PM EDT Office Visit [facility] MEDICINE [address] [place] [phone] Marisabel Michel MD [address] [place] [address] [phone] documented as of this encounter Visit Diagnoses Diagnosis Allergic rhinitis due to other allergic trigger, unspecified seasonality- Primary Moderate persistent asthma without complication documented in this encounter Care Teams Bingo Caller Relationship Specialty Start Date End Date Marisabel Michel MD [address] [place] [address] PCP - General Family Medicine 09/04/11 documented as of this encounter
--- OUTSIDE RECORDS SUMMARY | 2025-04-05 14:26 | XMS_ITS | Encounter Summary ---
Author Organization [employer] Address [address] [facility] 7t [place] [address] Care Team Providers Care Exhibit Builder Name Role Phone Marisabel Michel MD Primary Care Provider [phone] Reason for Referral * Consultation (Urgent) - Closed Specialty Diagnoses / Procedures Referred By Contac t Referred To Contact Diagnoses Cellulitis of right lower leg Pain in right lower leg Marisabel Michel MD [address] [place] [address] Phone: tel: fax: Ester Palm MD [address] [facility] [address] [place] [address] Phone: tel: Referral ID Status Reason Start Date Expiration Date V isits Requested Visits Authorized [id number] Closed Specialty Services Required 08/29/2024 08/29/2025 1 1 Encounter Details Date Type Department Care Team (Late st Contact Info) Description 08/29/2024 Orders Only [facility] MEDICINE [address] [place] [address] [phone] Marisabel Michel MD [address] [place], [place] [phone] Cellulitis of right lower leg (Primary Dx); [...] Description 06/05/2025 1:45 PM EDT Office Visit [facility] MEDICINE [address] [place] [address] Marisabel Michel MD [address] [place] [address] Scheduled Referrals Name Type Priority Associated Diagnoses [...] documented as of this encounter Care Teams Exhibit Builder Relationship Specialty Start Date End Date Marisabel Michel MD [address] [place] [address] PCP - General Family Medicine 09/04/11 documented as of this encounter
--- OUTSIDE RECORDS SUMMARY | 2025-04-05 14:26 | XMS_ITS | Encounter Summary ---
Author Organization [employer] Address [address] [facility] [address] 7t [place] [address] Care Team Providers Care Outside Physical Damage Appraiser Name Role Phone Marisabel Michel MD Primary Care Provider [phone] Encounter Details Date Type Department Care Team ([facility] st Contact Info) Description 10/26/2023 Orders Only [facility] MEDICINE [address] [place], [place] [phone] Marisabel Michel MD [address] [place], [place] [phone] Social History Tobacco Use Types Packs/Day Years [...] Description 06/05/2025 1:45 PM EDT Office Visit [facility] MEDICINE [address] [place] [address] Marisabel Michel MD [address] [place] [address] documented as of this encounter Visit Diagnoses Not on filedocumented in this encounter Additional Health Concerns Assessment Noted Time PHQ-9 Depression Total Score: 2 02/25/20 23 1:12 PM EDT documented as of this encounter Care Teams Outside Physical Damage Appraiser Relationship Specialty Start Date End Date Marisabel Michel MD [address] [place] [address] PCP - General Family Medicine 09/04/11 documented as of this encounter
--- OUTSIDE RECORDS SUMMARY | 2025-04-05 14:26 | XMS_ITS | Encounter Summary ---
Author Organization [employer] Address [address] [facility] [address] 7[address] [place] [address] Care Team Providers Care Insulation Engineman Name Role Phone Marisabel Michel MD Primary Care Provider [phone] Encounter Details Date Type Department Care Team ([facility] st Contact Info) Description 03/28/2025 Orders Only [facility] MEDICINE [address] [place], [place] [phone] Marisabel Michel MD [address] [place], [place] [phone] Prediabetes (Primary Dx); Screening for lipid disorders; Screening for diabetes mellitus; Hypokalemia Social History Tobacco Use Types Packs/Day [...] Description 06/05/2025 1:45 PM EDT Office Visit [facility] MEDICINE [address] [place] [address] Marisabel Michel MD [address] [place] [address] Scheduled Orders Name Type Priority Associated Diagnoses Orde r Schedule Lipid Panel with Reflex to Direct LDL Lab Routine Screening for lipid disorders Expected: 03/28/2025 (Approximate), Expires: 03/28/2026 Hemoglobin A1c Lab Routine Prediabetes Screening for diabetes mellitus Expected: 03/28/2025 (Approximate), Expires: 03/28/2026 Comprehensive Metabolic Panel Lab Routine Prediabetes Hypokalemia Expected: 03/28/2025 (Approximate), Expires: 03/28/2026 documented as of this encounter Visit Diagnoses Diagnosis Prediabetes- Primary Other abnormal glucose Screening for lipid disorders Screening for diabetes mellitus Hypokalemia Hypopotassemia documented in this encounter Additional Health Concerns Assessment Noted Time PHQ-9 Depression Total Score: 0 03/29/20 24 3:23 PM EDT documented as of this encounter Care Teams Insulation Engineman Relationship Specialty Start Date End Date Marisabel Michel MD [address] [place] [address] PCP - General Family Medicine 09/04/11 documented as of this encounter
--- OUTSIDE RECORDS SUMMARY | 2025-04-05 14:26 | XMS_ITS | Encounter Summary ---
Author Organization [employer] Address [address] [facility] [address] 7[address] [place] [address] Care Team Providers Care Mill Operator Head Name Role Phone Marisabel Michel MD Primary Care Provider [phone] Encounter Details Date Type Department Care Team ([facility] st Contact Info) Description 09/29/2024 Orders Only [facility] MEDICINE [address] [place], [place] [phone] Marisabel Michel MD [address] [place] [address] Social History Tobacco Use Types Packs/Day Years [...] Description 06/05/2025 1:45 PM EDT Office Visit [facility] MEDICINE [address] [place] [address] Marisabel Michel MD [address] [place] [address] documented as of this encounter Visit Diagnoses Not on filedocumented in this encounter Additional Health Concerns Assessment Noted Time PHQ-9 Depression Total Score: 0 03/29/20 24 3:23 PM EDT documented as of this encounter Care Teams Mill Operator Head Relationship Specialty Start Date End Date Marisabel Michel MD [address] [place] [address] PCP - General Family Medicine 09/04/11 documented as of this encounter
--- OUTSIDE RECORDS SUMMARY | 2025-04-05 14:26 | XMS_ITS | Encounter Summary ---
Author Organization [employer] Address [address] 7t [place] [address] Care Team Providers Care Chain Maker Machine Name Role Phone Marisabel Michel MD Primary Care Provider [phone] Encounter Details Date Type Department Care Team ([facility] st Contact Info) Description 03/30/2025 Orders Only [facility] [address] [place], [place] [phone] Marisabel Michel MD 230 [place], [place] [phone] Social History Tobacco Use Types Packs/Day Years [...] Description 06/05/2025 1:45 PM EDT Office Visit [facility] 230 [place] [address] Marisabel Michel MD 230 [place] [address] documented as of this encounter Visit Diagnoses Not on filedocumented in this encounter Additional Health Concerns Assessment Noted Time PHQ-9 Depression Total Score: 0 03/29/20 24 3:23 PM EDT documented as of this encounter Care Teams Chain Maker Machine Relationship Specialty Start Date End Date Marisabel Michel MD 230 [place] [address] PCP - General Family Medicine 09/04/11 documented as of this encounter
--- OUTSIDE RECORDS SUMMARY | 2025-04-05 14:26 | XMS_ITS | Encounter Summary ---
Author Organization [email or web address] Address [address] 7t [place] [address] Care Team Providers Care Supervisor Electronics Assembly Name Role Phone Marisabel Michel MD Primary Care Provider [phone] Encounter Details Date Type Department Care Team ([facility] st Contact Info) Description 09/08/2024 Orders Only [facility] MED[facility]INE 230 [place], [place] [phone] Marisabel Michel MD 230 [place], [place] [phone] Social History Tobacco Use Types Packs/Day Years [...] Description 06/05/2025 1:45 PM EDT Office Visit [facility] [address] [place] [address] Marisabel Michel MD [address] [place] [address] documented as of this encounter Visit Diagnoses Not on filedocumented in this encounter Additional Health Concerns Assessment Noted Time PHQ-9 Depression Total Score: 0 03/29/20 24 3:23 PM EDT documented as of this encounter Care Teams Supervisor Electronics Assembly Relationship Specialty Start Date End Date Marisabel Michel MD [address] [place] [address] PCP - General Family Medicine 09/04/11 documented as of this encounter
--- OUTSIDE RECORDS SUMMARY | 2025-04-05 14:26 | XMS_ITS | Encounter Summary ---
Author Organization [employer] Address [address] 7t [place] [address] Care Team Providers Care Wire Frame Maker Name Role Phone Marisabel Michel MD Primary Care Provider Reason for Visit * Reason Comments Med Refill Encounter Details Date Type Department Care Team ([facility] st Contact Info) Description 10/08/2023 Refill [facility] 230 [place], [place] [phone] Angela Kirkland DO 230 [place], [place] [phone] Osteopenia, unspecified location Social History Tobacco Use [...] the past 12 months, has t he [employer] 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 or 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 company threatened to shut [...] Description 06/05/2025 1:45 PM EDT Office Visit [facility] 230 [place] [address] Marisabel Michel MD 230 [place] [address] documented as of this encounter Visit Diagnoses Diagnosis Osteopenia, unspecified location documented in this encounter Additional Health Concerns Assessment Noted Time PHQ-9 Depression Total Score: 2 02/25/20 23 1:12 PM EDT documented as of this encounter Care Teams Wire Frame Maker Relationship Specialty Start Date End Date Marisabel Michel MD 230 [place] [address] PCP - General Family Medicine 09/04/11 documented as of this encounter
--- OUTSIDE RECORDS SUMMARY | 2025-04-05 14:26 | XMS_ITS | Encounter Summary ---
Author Organization [employer] Address [address] 7t [place] [address] Care Team Providers Care Supervisor Powder And Primer Canning Name Role Phone Marisabel Michel MD Primary Care Provider [phone] Encounter Details Date Type Department Care Team ([facility] st Contact Info) Description 03/28/2025 Telephone [facility] [address] [place], [place] [phone] Marisabel Michel MD 230 [place], [place] [phone] Social History Tobacco Use Types Packs/Day Years [...] encounter Miscellaneous Notes * Telephone Encounter - Linda La - 03/31/2025 9:31 AM EDT Patient was called and informed that the order for mask be requested by Dr. Pederson's Office. There are no supporting notes in patient's chart to support order of supplies. Covering Claim Processing Specialist willorder. * Telephone Encounter - Marisabel Michel MD - 03/28/2025 6:11 PM EDT Patient's caregiver states patient and her family were diagnosed with COVID last week. Patient is needing more nebulizer treatment. She needs nebulizer mask. Please write the script and fax to [facility]. Dx asthma, moderate persistent. Previously prescribed by her laboratory technologist, who is out of town at this time. Pulmonology office suggested PCP to prescribe. documented in this encounter Plan of Treatment Upcoming Encounters Date Type Department Care Team (Late st Contact Info) Description 06/05/2025 1:45 PM EDT Office Visit [facility] [address] [place] [address] Marisabel Michel MD [address] [place] [address] documented as of this encounter Visit Diagnoses Not on filedocumented in this encounter Additional Health Concerns Assessment Noted Time PHQ-9 Depression Total Score: 0 03/29/20 24 3:23 PM EDT documented as of this encounter Care Teams Supervisor Powder And Primer Canning Relationship Specialty Start Date End Date Marisabel Michel MD 230 [place] [address] PCP - General Family Medicine 09/04/11 documented as of this encounter
--- OUTSIDE RECORDS SUMMARY | 2025-04-05 14:26 | XMS_ITS | Encounter Summary ---
Author Organization [employer] Address [address] [facility] 7t [place] [address] Care Team Providers Care Portable Sawyer Name Role Phone Marisabel Michel MD Primary Care Provider [phone] Reason for Referral * Consultation (Routine) - Authorized Specialty Diagnoses / Procedures Referred By Contcarlos t Referred To Contact Pharmacy Diagnoses Moderate persistent asthma without complication Prediabetes Primary hypertension Polypharmacy Marisabel Michel MD 230 [place] [address] Phone: tel: fax: Referral ID Status Reason Start Date Expiration Date Visits Requested Visits Authorized [id number] Authorized Continuity of Care 09/09/2024 09/09/2025 6 6 Encounter Details Date Type Department Care Team ([facility] st Contact Info) Description 09/09/2024 Orders Only [facility] [address] [place] [address] [phone] Marisabel Michel MD [address] [place] [address] [phone] Moderate persistent asthma without complication (Primary Dx); [...] Description 06/05/2025 1:45 PM EDT Office Visit [facility] [address] [place] [address] Marisabel Michel MD 230 [place] [address] Scheduled Referrals Name Type Priority Associated Diagnoses [...] documented as of this encounter Care Teams Portable Sawyer Relationship Specialty Start Date End Date Marisabel Michel MD [address] [place] [address] PCP - General Family Medicine 09/04/11 documented as of this encounter
--- OUTSIDE RECORDS SUMMARY | 2025-04-05 14:26 | XMS_ITS | Encounter Summary ---
Author Organization [employer] Address [address] 7t [place] [address] Care Team Providers Care Mold Sheet Cleaner Name Role Phone Marisabel Michel MD Primary Care Provider Encounter Details Date Type Department Care Team (Late st Contact Info) Description 08/05/2024 Orders Only [facility] MED[facility]INE 230 [place], [place] [phone] Marisabel Michel MD 230 [place] [address] Acute right ankle pain (Primary Dx); Cellulitis [...] Description 06/05/2025 1:45 PM EDT Office Visit [facility] MED[facility]INE 230 [place], [place] [phone] Marisabel Michel MD 230 [place] [address] Scheduled Orders Name Type Priority Associated Diagnoses [...] Results * (ABNORMAL) Sed Rate by Modified Westergren (08/30/2024 4:50 PM EDT) Erythrocyte Sedimentation Rate 56(H) 0 - 20 MM/HR [facility] Comment:Patients with polycy themia and many hemoglobin abnormalitiesmay have depressed sed rates whereas patients with anemiamay have elevated sed rates. Blood Venous blood specimen / Unknown 08/30/2024 4:50 PM EDT 08/30/2024 5:01 PM EDT us Marisabel Michel MD LAB BLOOD ORDERABLES Final Resul t [facility] [address] [place] [phone] * (ABNORMAL) Basic Metabolic Panel (08/30/2024 4:50 PM EDT) Sodium 140 135 - 145 mmol/L [facility] Potassium 3.6 3.3 - 5.1 mmol/L [facility] Chloride 104 96 - 108 mmol/L [facility] Carbon Dioxide 25 22 - 29 mmol/L [facility] Anion Gap 15 12 - 20 [facility] Urea Nitrogen (BUN) 16 9 - 16 mg/dL [facility] Creatinine, Serum 0.77 0.5 - 1.4 mg/dL [facility] Estimated Glomerular Filt Rate >60 [facility] Comment:NOTE: For -Am erican individuals, multiply the result by 1.210.Chronic Kidney Disease: Estimated GFR < 60 mL/min/1.62g5Hfkbfa Kidney Disease: Estimated GFR < 15 mL/min/1.73m2 Glucose 93 60 - 115 mg/dL [facility] Calcium 10.3(H) 8.4 - 10.2 mg/dL [facility] Blood Venous blood specimen / Unknown 08/30/2024 4:50 PM EDT 08/30/2024 5:01 PM EDT Marisabel Michel MD LAB BLOOD ORDERABLES Final Resul t Performing Organization Address City/[facility] Co de Phone Number [facility] [address] [place] [phone] * Magnesium (08/30/2024 4:50 PM EDT) Magnesium 2.3 1.6 - 2.6 mg/dL [facility] Blood Venous blood specimen / Unknown 08/30/2024 4:50 PM EDT 08/30/2024 5:01 PM EDT Marisabel Michel MD LAB BLOOD ORDERABLES Final Resul t Performing Organization Address [facility] de Phone Number [facility] [address] [place] [phone] * (ABNORMAL) Reticulocyte Count (08/30/2024 4:50 PM EDT) Reticulocytes Absolute 0.095 0.026 - 0.095 X10*6/uL [facility] Immature Retic Fraction 8.3 3.0 - 15.9 % [facility] Retic HGB Equivalent 31.7 30.0 - 35.0 pg [facility] Reticulocyte Percent 2.1(H) 0.5 - 1.8 % [facility] Blood Venous blood specimen / Unknown 08/30/2024 4:50 PM EDT 08/30/2024 5:01 PM EDT Marisabel Michel MD LAB BLOOD ORDERABLES Final Resul t Performing Organization Address [facility]/ZIP Co de Phone Number [facility] [address] [place] [phone] * (ABNORMAL) Iron And Total Iron Binding Capacity (08/30/2024 4:50 PM EDT) Iron 38 30 - 160 mcg/dL [facility] Total Iron Binding Capacity 206(L) 228 - 428 mcg/dL [facility] Percent Iron Saturation 18 15 - 50 % [facility] Unsaturated Iron Binding 168 ug/dL [facility] Blood Venous blood specimen / Unknown 08/30/2024 4:50 PM EDT 08/30/2024 5:01 PM EDT Marisabel Michel MD LAB BLOOD ORDERABLES Final Resul t Performing Organization Address [facility] de Phone Number [facility] [address] [place] [phone] * (ABNORMAL) Ferritin (08/30/2024 4:50 PM EDT) Ferritin 283(H) 10 - 250 ng/mL [facility] Blood Venous blood specimen / Unknown 08/30/2024 4:50 PM EDT 08/30/2024 5:01 PM EDT Marisabel Michel MD LAB BLOOD ORDERABLES Final Resul t Performing Organization Address [facility] Co de Phone Number [facility] [address] [place] [phone] * (ABNORMAL) C-reactive Protein (08/30/2024 4:50 PM EDT) C Reactive Protein 1.83(H) < or = 0.50 mg/dL [facility] Blood Venous blood specimen / Unknown 08/30/2024 4:50 PM EDT 08/30/2024 5:01 PM EDT us Marisabel Michel MD LAB BLOOD ORDERABLES Final Resul t [facility] [address] [place], [place] [phone] * (ABNORMAL) CBC auto differential (08/30/2024 4:50 PM EDT) White Blood Count 9.6 4.8 - 10.8 X10*3/uL [facility] Red Blood Count 4.49 4.20 - 5.50 X10*6/uL [facility] Hemoglobin 12.8 12.0 - 16.0 g/dl [facility] Hematocrit 39.2 37.0 - 47.0 % [facility] Mean Corpuscular Volume 87.3 80.0 - 98.0 fL [facility] Mean Corpuscular Hemoglobin 28.5 27.0 - 33.0 pg [facility] Mean Corpuscular HGB Conc 32.7 31.0 - 35.0 g/dl [facility] Red Cell Distribution Width 13.5 11.0 - 16.0 % [facility] Platelet Count 248 160 - 400 X10*3/uL [facility] Mean Platelet Volume 11.9 9.4 - 12.3 fL [facility] Neutrophils Percent Auto 70.8 45 - 73 % [facility] Imm Gran Pct Auto 0.8(H) 0.0 - 0.4 % [facility] Lymphocytes Percent Auto 17.2(L) 20 - 40 % [facility] Monocytes Percent Auto 6.7 2 - 11 % [facility] Eosinophils Percent Auto 4.0 0 - 4 % [facility] Basophils Percent Auto 0.5 0 - 2 % [facility] NRBC Pct Auto 0.0 0.0 - 0.2 /100WBC [facility] Neutrophils Absolute Auto 6.8 2.0 - 8.3 x10*3/uL [facility] Imm Gran Abs Auto 0.08(H) 0.00 - 0.03 X10*3/uL [facility] Lymphocytes Absolute Auto 1.7 1.2 - 4.9 X10*3/uL [facility] Monocytes Absolute Auto 0.6 0.1 - 1.2 X10*3/uL [facility] Eosinophils Absolute Auto 0.4 0.0 - 0.4 X10*3/uL [facility] Basophils Absolute Auto 0.1 0.0 - 0.2 X10*3/uL [facility] NRBC Abs Auto 0.000 0.0 - 0.012 X10*3/uL [facility] Blood Venous blood specimen / Unknown 08/30/2024 4:50 PM EDT 08/30/2024 5:01 PM EDT us Marisabel Michel MD LAB BLOOD ORDERABLES Final Resul t [facility] [address] [place] [phone] documented in this encounter Visit Diagnoses Diagnosis Acute right ankle pain- Primary Cellulitis of right lower leg Anemia, unspecified type Hypokalemia Hypopotassemia documented in this encounter Additional Health Concerns Assessment Noted Time PHQ-9 Depression Total Score: 0 03/29/20 24 3:23 PM EDT documented as of this encounter Care Teams Mold Sheet Cleaner Relationship Specialty Start Date End Date Marisabel Michel MD [address] [place] [phone] PCP - General Family Medicine 09/04/11 documented as of this encounter
--- OUTSIDE RECORDS SUMMARY | 2025-04-05 14:26 | XMS_ITS | Encounter Summary ---
Author Organization [employer] Address [address] [facility] 7t [place] [address] Care Team Providers Care Word Processor Name Role Phone Marisabel Michel MD Primary Care Provider [phone] Encounter Details Date Type Department Care Team ([facility] st Contact Info) Description 10/04/2024 Orders Only [facility] 230 [place] [address] Lexie Lopez, PharmD 230 [place] [address] Social History Tobacco Use Types Packs/Day Years [...] Description 06/05/2025 1:45 PM EDT Office Visit [facility] [address] [place] [phone] Marisabel Michel MD [address] [place] [address] documented as of this encounter Visit Diagnoses Not on filedocumented in this encounter Additional Health Concerns Assessment Noted Time PHQ-9 Depression Total Score: 0 03/29/20 24 3:23 PM EDT documented as of this encounter Care Teams Word Processor Relationship Specialty Start Date End Date Marisabel Michel MD [address] [place] [address] PCP - General Family Medicine 09/04/11 documented as of this encounter
--- OUTSIDE RECORDS SUMMARY | 2025-04-05 14:26 | XMS_ITS | Encounter Summary ---
Author Organization [employer] Address [address] 7[address] [place] [address] Care Team Providers Care Song Writer Name Role Phone Marisabel Michel MD Primary Care Provider [phone] Encounter Details Date Type Department Care Team ([facility] st Contact Info) Description 08/23/2024 Orders Only [facility] 230 [place], [place] [phone] Marisabel Michel MD 230 [place], [place] [phone] Social History Tobacco Use Types Packs/Day Years [...] Description 06/05/2025 1:45 PM EDT Office Visit [facility] [address] [place] [phone] Marisabel Michel MD [address] [place] [address] documented as of this encounter Visit Diagnoses Not on filedocumented in this encounter Additional Health Concerns Assessment Noted Time PHQ-9 Depression Total Score: 0 03/29/20 24 3:23 PM EDT documented as of this encounter Care Teams Song Writer Relationship Specialty Start Date End Date Marisabel Michel MD [address] [place] [address] PCP - General Family Medicine 09/04/11 documented as of this encounter
--- OUTSIDE RECORDS SUMMARY | 2025-04-05 14:26 | XMS_ITS | Encounter Summary ---
Author Organization [employer] Address [address] 7t [place] [address] Care Team Providers Care School Transportation Supervisor Name Role Phone Marisabel Michel MD Primary Care Provider [phone] Encounter Details Date Type Department Care Team (Late st Contact Info) Description 10/21/[address] [facility] MED[facility] [address] [place], [place] [phone] Marisabel Michel MD 230 [place] [address] Open wound of right lower leg due [...] Description 06/05/2025 1:45 PM EDT Office Visit [facility] [address] [place] [address] Marisabel Michel MD 230 [place] [address] documented as of this encounter Visit Diagnoses Diagnosis Open wound of right lower leg due to dog bite- Primary Peripheral venous insufficiency Unspecified venous (peripheral) insufficiency Venous stasis dermatitis of both lower extremities documented in this encounter Additional Health Concerns Assessment Noted Time PHQ-9 Depression Total Score: 2 02/25/20 23 1:12 PM EDT documented as of this encounter Care Teams School Transportation Supervisor Relationship Specialty Start Date End Date Marisabel Michel MD [address] [place] [address] PCP - General Family Medicine 09/04/11 documented as of this encounter
--- OUTSIDE RECORDS SUMMARY | 2025-04-05 14:26 | XMS_ITS | Encounter Summary ---
Author Organization [employer] Address [address] 7t [place] [address] Care Team Providers Care Drier Tender Naphthalene Name Role Phone Marisabel Michel MD Primary Care Provider [phone] Encounter Details Date Type Department Care Team ([facility] st Contact Info) Description 08/01/2024 Orders Only [facility] 230 [place], [place] [phone] Marisabel Michel MD 230 [place], [place] [phone] Prediabetes (Primary Dx) Social History Tobacco Use [...] Description 06/05/2025 1:45 PM EDT Office Visit [facility] [address] [place] [address] [phone] Marisabel Michel MD [address] [place] [phone] documented as of this encounter Visit Diagnoses Diagnosis Prediabetes- Primary Other abnormal glucose documented in this encounter Additional Health Concerns Assessment Noted Time PHQ-9 Depression Total Score: 0 03/29/20 24 3:23 PM EDT documented as of this encounter Care Teams Drier Tender Naphthalene Relationship Specialty Start Date End Date Marisabel Michel MD [address] [place] [address] PCP - General Family Medicine 09/04/11 documented as of this encounter
--- OUTSIDE RECORDS SUMMARY | 2025-04-05 14:26 | XMS_ITS | Encounter Summary ---
Author Organization [employer] Address [address] 7t [place] [address] Care Team Providers Care Deicer Repairer Pneumatic Name Role Phone Marisabel Michel MD Primary Care Provider [phone] Encounter Details Date Type Department Care Team (Late st Contact Info) Description 12/02/2022 Orders Only [facility] [address] [place] [address] [phone] Marisabel Michel MD [address] [place] [address] [phone] Moderate persistent asthma without complication (Primary Dx); [...] Description 06/05/2025 1:45 PM EDT Office Visit [facility] [address] [place] [address] [phone] Marisabel Michel MD 230 [place], [place] [phone] documented as of this encounter Visit Diagnoses Diagnosis Moderate persistent asthma without complication- Primary Allergic rhinitis due to other allergic trigger, unspecified seasonality Intrinsic atopic dermatitis documented in this encounter Care Teams Deicer Repairer Pneumatic Relationship Specialty Start Date End Date Marisabel Michel MD [address] [place] [address] [phone] PCP - General Family Medicine 09/04/11 documented as of this encounter
--- OUTSIDE RECORDS SUMMARY | 2025-04-05 14:26 | XMS_ITS | Encounter Summary ---
Author Organization [employer] Address [address] 7t [place] [address] Care Team Providers Care Bottom Hoop Driver Name Role Phone Marisabel Michel MD Primary Care Provider [phone] Reason for Visit * Reason Comments Med Refill Encounter Details Date Type Department Care Team ([facility] st Contact Info) Description 04/04/2025 Refill [facility] 230 [place], [place] [phone] Marisabel Michel MD 230 [place], [place] [phone] Social History Tobacco Use Types Packs/Day Years [...] Description 06/05/2025 1:45 PM EDT Office Visit [facility] [address] [place] [phone] Marisabel Michel MD [address] [place] [phone] documented as of this encounter Visit Diagnoses Not on filedocumented in this encounter Additional Health Concerns Assessment Noted Time PHQ-9 Depression Total Score: 0 03/29/20 24 3:23 PM EDT documented as of this encounter Care Teams Bottom Hoop Driver Relationship Specialty Start Date End Date Marisabel Michel MD [address] [place] [phone] PCP - General Family Medicine 09/04/11 documented as of this encounter
--- OUTSIDE RECORDS SUMMARY | 2025-04-05 14:26 | XMS_ITS ---
Author Organization [facility] Address [address] [place] [address] Care Team Providers Care Diet Attendant Name Role Phone Marisabel Michel Primary Care Provider UnavailYoni Deng Unavailable [phone] Halle Bustillo Unavailable [phone] REASON FOR VISIT Seen Sooner Encounters Encounter [facility] [address] [facility] Halle Bustillo Plan Of Treatment Next Appt Details Provider Name:Yoni Bhatt , 05/08/2025 01:30:00 PM, [address] [place] [address], [place], [address], Progress Notes * Radha JACKDOB: [birth year] (54 yo F)Acc No.[id number]:03/03/2025 Progress Note Patient:?Radha JACK Provider:?Halle Bustillo DPM :1970???Age:54 Y???Sex:Female D ate:03/03/2025 Address:[address] [place] [address] Pcp:Marisabel Michel Subjective: * Chief Complaints: * [...] DPM Date:?0 03/03/2025 Generated for Deny lou/Klaudia/David on:?04/05/2025 02:25 PM EDT
--- OUTSIDE RECORDS SUMMARY | 2025-04-05 14:27 | XMS_ITS | Encounter Summary ---
Author Organization [employer] Address [address] [place] [address] Care Team Providers Care Sleep Tech Name Role Phone Marisabel Michel MD Primary Care Provider [phone] Reason for Visit * Reason Comments Med Refill Encounter Details Date Type Department Care Team ([facility] st Contact Info) Description 12/11/2024 Refill [facility] [address] [place], [place] [phone] Marisabel Michel MD [address] [place], [place] [phone] Social History Tobacco Use Types Packs/Day Years [...] Description 06/05/2025 1:45 PM EDT Office Visit [facility] [address] [place] [address] Marisabel Michel MD [address] [place] [phone] documented as of this encounter Visit Diagnoses Not on filedocumented in this encounter Additional Health Concerns Assessment Noted Time PHQ-9 Depression Total Score: 0 03/29/20 24 3:23 PM EDT documented as of this encounter Care Teams Sleep Tech Relationship Specialty Start Date End Date Marisable Michel MD [address] [place] [phone] PCP - General Family Medicine 09/04/11 documented as of this encounter
--- OUTSIDE RECORDS SUMMARY | 2025-04-05 14:27 | XMS_ITS | Encounter Summary ---
Author Organization [email or web address] Address [address] [facility] 7t [place] [address] Care Team Providers Care Milk Delivery Driver Name Role Phone Marisabel Michel MD Primary Care Provider [phone] Reason for Visit * Reason Onset Date Comments Appointment Request 01/23/2023 Encounter Details Date Type Department Care Team (Late Contact Info) Description 01/23/2023 Telephone [facility] [address] [place] [phone] Marisabel Michel MD [address] [place] [phone] Appointment Request Social History Tobacco Use Types [...] appt with pcp. Please contact pt at [phone] documented in this encounter Plan of Treatment Upcoming Encounters Date Type Department Care Team (Late Contact Info) Description 06/05/2025 1:45 PM EDT Office Visit [facility] [address] [place] [address] Marisabel Michel MD [address] [place], [place] [phone] documented as of this encounter Visit Diagnoses Not on filedocumented in this encounter Care Teams Milk Delivery Driver Relationship Specialty Start Date End Date Marisabel Michel MD [address] [place], [place] [phone] PCP - General Family Medicine 09/04/11 documented as of this encounter
--- OUTSIDE RECORDS SUMMARY | 2025-04-05 14:27 | XMS_ITS | Encounter Summary ---
Author Organization [employer] Address [address] [place] [address] Care Team Providers Care Manager Training Name Role Phone Marisabel Michel MD Primary Care Provider [phone] Encounter Details Date Type Department Care Team ([facility] st Contact Info) Description 10/01/2023 Orders Only [facility] [address] [place], [place] [phone] Marisabel Michel MD [address] [place], [place] [phone] Social History Tobacco Use Types Packs/Day Years [...] Description 06/05/2025 1:45 PM EDT Office Visit [facility] [address] [place] [address] Marisabel Michel MD [address] [place] [address] documented as of this encounter Visit Diagnoses Not on filedocumented in this encounter Additional Health Concerns Assessment Noted Time PHQ-9 Depression Total Score: 2 02/25/20 23 1:12 PM EDT documented as of this encounter Care Teams Manager Training Relationship Specialty Start Date End Date Marisabel Michel MD [address] [place] [address] PCP - General Family Medicine 09/04/11 documented as of this encounter
--- OUTSIDE RECORDS SUMMARY | 2025-04-05 14:27 | XMS_ITS | Encounter Summary ---
Author Organization [employer] Address [address] [facility] [address] [place] [address] Care Team Providers Care Poultry Picking Machine Tender Name Role Phone Marisabel Michel MD Primary Care Provider [phone] Reason for Visit * Reason Onset Date Comments Med Refill 09/15/2023 Encounter Details Date Type Department Care Team ([facility] st Contact Info) Description 09/15/2023 Telephone [facility] [address] [place], [place] [phone] Marisabel Michel MD [address] [place], [place] [phone] Med Refill Social History Tobacco Use Types [...] the past 12 months, has t he [employer] gas, oil or water company threatened to [...] Description 06/05/2025 1:45 PM EDT Office Visit [facility] [address] [place] [address] Marisabel Michel MD [address] [place] [address] documented as of this encounter Visit Diagnoses Not on filedocumented in this encounter Additional Health Concerns Assessment Noted Time PHQ-9 Depression Total Score: 2 02/25/20 23 1:12 PM EDT documented as of this encounter Care Teams Poultry Picking Machine Tender Relationship Specialty Start Date End Date Marisabel Michel MD [address] [place] [phone] PCP - General Family Medicine 09/04/11 documented as of this encounter
--- OUTSIDE RECORDS SUMMARY | 2025-04-05 14:27 | XMS_ITS ---
Author Organization [facility] Address [address] [place] [address] Care Team Providers Care Mounter Smoking Pipe Name Role Phone Marisabel Michel Primary Care Provider UnavailYoni Deng Unavailable [phone] Halle Bustillo Unavailable [phone] Encounters Encounter [facility] Date [facility] [address] [facility] Halle Bustillo Plan Of Treatment Next Appt Details Provider Name:Yoni Bhatt , 05/08/2025 01:30:00 PM, [address] [place] [address], [place], [address], Progress Notes * Radha JACKDOB: 1 (54 yo F)Acc No.[id number]:03/24/2025 Progress Note Patient:?GUEROGibsonRadha Provider:?Halle Bustillo DPM :1970???Age:54 Y???Sex:Female D ate:03/24/2025 Address:[address] [place] [address] Pcp:Marisabel Michel Subjective: * Chief Complaints: * ??? * Medical History:? Objective: * Vitals:? Assessment: Plan: * Treatment: * Images: * The named appointment provid er may or may not be the originator of this progress note, and it is not deemed complete until electronically signed by the appointment provider. Sign off status: Pending * Provider:?Halle Bustillo DPM Date:?0 03/24/2025 Generated for Deny lou/Klaudia/David on:?04/05/2025 02:26 PM EDT
--- OUTSIDE RECORDS SUMMARY | 2025-04-05 14:27 | XMS_ITS | Data Portability ---
Author Organization [employer] Address [address] [place] [address] Care Team Providers Care Hogshead Wrecker Name Role Phone HIM CCA OTHER DENA KAN Primary Care Provider Assessment Encounter Date Assessment Date Assessment LastModified by Organization Details LastModified Time 06/26/2024 06/26/2024 As noted, we were called to see this patient regarding concerns of fever. Evaluation in the field was performed by my airline ticket agent colleague, as noted above, I provided real-time [...] worsening flank pain, rigors, worsening abdominal pain Not available 06/26/2024 19:34:52 03/16/2025 03/16/2025 I provided real -time medical direction via phone for this encounter and was available for additional phone-based assistance as needed. I have reviewed and agree with the Assessment and Plan as documented by the Power Plant Engineer. Patient given the opportunity to ask questions. Our service contacted for an assessment of: Hematuria and back pain radiating to the right flank. As per above, patient with approximately 24 hours of Abdominal and back pain radiating to the right flank. Denies dysuria, frequency. does have a history of UTIs. Denies fever, chills . Per airline ticket agent on the scene, Vital signs are stable and the patient is afebrile. Patient is nontoxic in appearance. UA is positive for leukocytes. Impression: Urinary symptoms and UTI Plan: Levaquin 500 mg for 5 days. Follow-up urine culture. Patient has a urology appointment for an ultrasound of kidneys on April 05. Encouraged to keep an appointment. This is for recurrent hematuria. Allergies: reviewed We discussed the diagnostic uncertainty of home visits and the risk associated with this. In this case, the patient and I felt this to be an acceptable and reasonable amount of risk given the benefit of avoiding an ED visit. We discussed the need to seek care urgently/emergen tly in the setting of any new or worsening serious symptoms, particularly fever chills [email or web address] Not available 03/16/2025 19:18:03 03/26/2025 03/26/2025 I have reviewed and agree with the assessment and plan as documented by the airline ticket agent. I provided real-time medical direction for this encounter and was immediately available to provide additional phone-based assistance as needed. HPI: 54F with cough, fever, body aches since . History of Asthma. No shortness of breath. Using albuterol once or twice a day. Also has nebulizer at home but not using yet. No fever presently. Normal PO intake. No chest pain. No n/v/d. Currently on cefpodoxime for UTI. O/E: No fever, O2 94%. Mild wheezing to lung bases bilaterally. COVID positive, Flu and strep negative. Impression/Plan: Recommend duoneb x 1 and will initiate prednisone. Encouraged to monitor symptoms closely and seek medical attention if severe or worsening resp status. We discussed the diagnostic uncertainty of home visits and the risk associated with this. In this case, the patient and I felt this to be an acceptable and reasonable amount of risk given the benefit of avoiding an ED visit. We discussed the need to seek care urgently/emergen tly in the setting of any new or worsening serious symptoms, particularly weakness, dizziness, fever, chills, CP, SOB, worsening diarrhea, nausea, vomiting or any other concerns. [email or web address] Not available 03/26/2025 20:06:52 Plan of Treatment Reminders Order Date Submit Date Provider Last Modified By Organization Details Last Modified Time Details Appointments None recorded. Lab rapid SARS CoV 2 Ag, QL IA, respiratory specimen 2024 025 [facility], [address] [place] [address], [id number] 5 20:22:13 rapid flu (A+B) 2024 025 [facility], [address] [place] [address], [id number] 5 20:22:27 rapid strep group A, throat 2024 025 [facility], [address] [place] [address], [id number] 5 20:22:43 urinalysis, dipstick 2024 025 [facility], [address] [place] [address], [id number] 5 21:03:36 culture, urine 2024 025 [facility] (Centralized Electronic Ordering - All Locations), Patient Can Go To The Location Of Their Choice, [id number] 5 12:07:57 culture, urine 2023 024 [facility] (Centralized Electronic Ordering - All Locations), Patient Can Go To The Location Of Their Choice, [id number] 4 09:59:04 urinalysis, dipstick 2023 024 [email or web address] [facility], [address] [place] [address], [id number] 4 22:16:27 rapid SARS CoV 2 Ag, QL IA, respiratory specimen 2023 024 [facility], [address] [place] [address], [id number] 4 22:16:30 rapid flu (A+B) 2023 024 [email or web address] [facility], [address] [place] [address], [id number] 4 22:16:35 Referral None recorded. Procedures None recorded. Surgeries None recorded. Imaging None recorded. Medication Orders ipratropium 0.5 mg-albutero l 3 mg (2.5 mg base)/3 mL nebulizatio n soln 2024 025 [facility]acy #2071, [address] [place], [address], 5 20:06:10 albuterol sulfate 2.5 mg/3 mL (0.083 %) solution for nebulizatio n 2024 025 [facility] #2071, [address] [place], [address], 5 20:06:11 ipratropium 0.5 mg-albutero l 3 mg (2.5 mg base)/3 mL nebulizatio n soln 2024 025 [facility] #2071, [address] [place], [address], 5 20:06:10 prednisone 10 mg tablet 2024 025 [facility]/Pharmacy #2071, [address] [place], [address], 5 20:08:18 levofloxaci n 500 mg tablet 2024 025 [facility]/Pharmacy #2071, [address] [place], [address], 5 19:07:37 levofloxaci n 500 mg tablet 2024 025 [email or web address] [address] [place], [address], 5 19:07:36 cephalexin 500 mg capsule 2023 024 [email or web address] [facility]/Pharmacy #2071, [address] [place], [address], 4 20:10:17 ceftriaxone 1 gram solution for injection 2023 024 [facility]/Pharmacy #2071, [address] [place] [address], [address], 4 19:04:48 lactated Ringers intravenous solution 2023 024 [facility]/Pharmacy #2071, [address] [place], [address], 4 19:04:48 levofloxaci n 500 mg tablet 2023 024 [email or web address] [facility]/Pharmacy #2071, [address] [place], [address], 4 19:15:51 levofloxaci n 500 mg tablet 2023 024 [email or web address] [facility], [address] [place] [address], [address], 4 19:15:51 Patient TargetsNo targets recorded. Patient InstructionsNo instructions recorded. Reason for Referral None Reported. Results Created Date Observation Date Name Description Value Unit Range Abnormal Flag Note LastModifiedBy Organization Detail LastModifiedTime 06/26/2006/28/2024 URINE CULTU REJAYLEN urine culture, routine Final report Not Available [facility] ([facility]) [address] [place], [address], 06/28/2024 08:08:50 06/26/2006/28/2024 URINE CULTU REJAYLEN result 1 COMMEN T Mixed uroge nital rimma 50,00 0-100 ,000 colon y formi ng units per mL Not Available [facility] ([facility]) [address] [place], [address], 06/28/2024 08:08:50 03/16/20 25 03/20/2025 URINE CULTU RE, ROUTI NE urine culture, routine Final report abnormal Not Available [facility] ([facility]) [address] [place], [address], 03/20/2025 14:07:03 03/16/20 25 03/20/2025 URINE CULTU RE, ROUTI NE result 1 Escher ichia coli abnormal Cefaz hira with an SRIRAM <=16 predi cts susce ptibi lity to the oral agent s cefac yenni, cefdi scarlett, cefpo doxim e, cefpr ozil, cefur oxime , cepha lexin , and lorac arbef when used for thera py of uncom plica micki urina ry tract infec tions due to E. coli, Klebs iella pneum oniae , and Prote us mirab ilis. Great er than 100,0 00 colon y formi ng units per mL Not Available [facility] ([facility]) [address] [place], [address], 03/20/2025 14:07:03 03/16/20 25 03/20/2025 URINE CULTU RE, ROUTI NE result 2 Klebsi laura pneumo niae abnormal Cefaz hira with an SRIRAM <=16 predi cts susce ptibi lity to the oral agent s cefac yenni, cefdi scareltt, cefpo doxim e, cefpr ozil, cefur oxime , cepha lexin , and lorac arbef when used for thera py of uncom plica micki urina ry tract infec tions due to E. coli, Klebs iella pneum oniae , and Prote us mirab ilis. Great er than 100,0 00 colon y formi ng units per mL Not Available [facility] ([facility]) [address] [place], [address], 03/20/2025 14:07:03 03/16/20 25 03/20/2025 URINE CULTU RE, ROUTI NE antimicrobia l susceptibili ty Commen t S = Susce ptibl e; I = Inter media te; R = Resis tant P = Posit shirin; N = Negat shirin MICS are expre ssed in micro grams per mL Antib iotic RSLT# 1 RSLT# 2 RSLT# 3 RSLT# 4 Amoxi cilli n/Cla vulan ic Acid S S Ampic illin R R Cefaz hira S S Cefep anneliese S S Cefox itin I S Cefpo doxim e S S Ceftr iaxon e S S Cipro floxa sam R S Ertap enem S S Genta micin S S Levof loxac in R S Merop enem S S Nitro furan toin S S Piper acill in/Ta zobac gamble S S Tetra cycli ne S R Tobra mycin S S Trime thopr im/Spicer lfa S S Not Available [facility] ([facility]) [address] [facility], [place], [address], 03/20/2025 14:07:03 Result Notes None recorded. Problems Name Problem SNOMED Code Status Onset Date Resolution Date Notes Provider Name and Address Organization Details Recorded Time Asthma [id number] Active 025 Chhaya Lovett MD [address] [place] [address],11[facility], [place], [address] , [employer] 03/26/2025 20:06:52 Problem Notes None recorded. Medical Equipment None Reported. Allergies Allergen ID Allergen Name Allergen Category Reaction Reaction Severity Criticality Documentation Date Start Date Code Code System Note Provider Name and Address Organization Details Recorded Time 186 Bactrim medicatio n Not available Not available Not available 01/02/2023 24967 9 RxNorm Not Available [facility] - production 17:39:26 1868 Symbicort medicatio n Not available Not available Not available 01/02/2023 29837 8 RxNorm Not Available [facility] - production 17:39:26 Medications Name Sig Start Date Stop Date Status Note LastModified by Organization Details LastModified Time furosemide 40 mg tablet TOME 1 TABLETA POR V A ORAL TODOS LOS D FOR 30 DAYS active Not Available Not Available No t Available clotrimazole 10 mg leonardo JAYDE VECES AL D A active Not Available Not Available No t Available terconazole 0.4 % vaginal cream INSERT 1 APPLICATORF UL BY VAGINAL DAILY X7 DAYS AT BEDTIME ALSO APPLY AROUND THE VULVAR AREA active Not Available Not Available Not Available nystatin 100,000 unit/mL oral suspension SWISH AND SWALLOW 5MLS 4 TIMES DAILY FOR 10 DAYS active Not Available Not Available Not Available prednisone 10 mg tablet TAKE 5 TABLETS POR V A ORAL EVERY DAY CON ALIMENTO FOR 4 DAYS active Not Available Not Available N ot Available naproxen 375 mg tablet TOME 1 TABLETA POR V A ORAL DOS VECES AL D A CUANDO SEA NECESARIO active Not Available Not Available No t Available Vitamin C 500 mg tablet TAKE 1 TABLET (500 MG) BY MOUTH AT BEDTIME. active Not Available Not Available No t Available cetirizine 10 mg tablet TOME 1 TABLETA POR V A ORAL TODOS LOS D active Not Available Not Available No t Available cefpodoxime 200 mg tablet TOME 1 TABLETA POR V A ORAL CADA 12 HORAS POR 5 D active Not Available Not Available No [...] (as calcium carbonate 1,250 mg) tablet TOME 1 TABLETA POR V A ORAL CADA DOS D active Not Available Not Available No t Available Ear Wax Removal Kit 6.5 % drops PLACE 4-5 DROPS ONTO BOTH EARS ONCE DAILY active Not Available Not Available N ot Available amitriptylin e 10 mg tablet TOME 1 TABLETA POR V A ORAL TODOS LOS D AL ACOSTARSE active Not Available Not Available No t Available doxycycline monohydrate 100 mg capsule TOME 1 C PSULA POR V A ORAL TODOS LOS D POR 10 D active Not Available Not Available No t Available cephalexin 500 mg capsule TAKE 1 TAB POR V A ORAL EVERY 6 HOURS BY ORAL ROUTE FOR 7 DAYS. active Not Available Not Available Not Available erythromycin 5 mg/gram (0.5 %) eye ointment APPLY 0.5 INCH TO AFFECTED EYE(S) 4 TIMES DAILY FOR 10 DAYS active [...] Available docusate sodium 100 mg capsule TOME 1 C PSULA POR V A ORAL DOS VECES AL D A active Not Available Not Available No t Available bismuth subsalicylat e 262 mg chewable tablet TOME DOS TABLETAS POR V A ORAL CUATRO VECES AL D A CUANDO SEA NECESARIO active Not Available Not Available No t Available omeprazole 20 mg capsule,dayo yed release TAKE 1 CAPSULE BY MOUTH BEFORE BREAKFAST AND BEFORE EVENING MEAL. DO NOT CRUSH OR CHEW. active Not Available Not Available No t Available Banophen 25 mg capsule TAKE 2 CAPSULES BY MOUTH EVERY 6 HOURS active Not Available Not Available No t Available pseudoephedr ine 30 mg tablet TOME DOS TABLETAS POR V A ORAL CADA OCHO HORAS POR 10 D active Not Available Not Available Not Available montelukast 10 mg tablet TOME 1 TABLETA POR V A ORAL TODOS LOS D active Not Available Not Available No t Available hydroxyzine HCl 25 mg tablet TAKE 1 TABLET (25 MG) BY MOUTH EVERY 8 (EIGHT) HOURS IF NEEDED FOR ITCHING OR ALLERGIES. active Not Available Not Available N ot Available ammonium lactate 12 % topical cream APPLY TO LEGS TODOS LOS D active Not Available Not Available No t Available lisinopril 5 mg tablet TAKE 0.5 TABLET (2.5 MG) BY MOUTH IN THE MORNING. active Not Available Not Available No t Available mupirocin 2 % topical ointment APPLY TO AFFECTED AREA JAYDE VECES AL D A X10 DAYS THEN CUANDO SEA NECESARIO FLARES active Not Available Not Available No t Available furosemide 20 mg tablet TOME MARIAH TABLETA POR V A ORAL TODOS LOS D active Not Available Not Available No t Available gabapentin 100 mg capsule TAKE 1 CAPSULE BY MOUTH AT BEDTIME. MAY TAKE 2 CAPSULES IF PAIN RELIEF IS INADEQUATE. active Not Available Not Available Not Available levofloxacin 500 mg tablet TAKE 1 TABLET EVERY 24 HOURS BY ORAL ROUTE active Not Available Not Available N ot Available ondansetron 4 mg disintegrati ng tablet TOME MARIAH TABLETA POR V A ORAL CADA OCHO HORAS CUANDO SEA NECESARIO PARA LAS N USEAS Y EL V PETRA active Not Available Not Available No t Available fluticasone propionate 50 mcg/actuatio n nasal spray,suspen faisal USE 1-2 SPRAYS IN EACH NOSTRIL ONCE PER DAY. SHAKE GENTLY. CLEAN TIP AND REPLACE CAP. active Not Available Not Available No t Available doxycycline hyclate 100 mg tablet TAKE ONE TABLET ORALLY 2 TIMES A DAY FOR 5 DAYS active Not Available Not Available N ot Available ipratropium bromide 0.02 % solution for inhalation INHALE 1 VIAL VIA NEBULIZER EVERY 6 HOURS NEEDED FOR SHORTNESS OF BREATH OR WHEEZING FOR 30 DAYS active Not Available Not Available Not Available amoxicillin 875 mg-potassium clavulanate 125 mg tablet TOME 1 TABLETA POR V A ORAL CADA 12 HORAS active Not Available Not Available No t Available Ventolin HFA 90 mcg/actuatio n aerosol inhaler TOME DOS INHALACIONE S POR VIA ORAL CADA CUATRO HORAS CUANDO SEA NECESARIO active Not Available Not Available No t Available ciclopirox 0.77 % topical cream APLIQUE AL AREA AFECTADA DOS VECES AL MYAH active Not Available Not Available No t Available Saline Nasal 0.65 % spray aerosol ADMINISTER 1 SPRAY INTO EACH NOSTRIL IF NEEDED FOR CONGESTION. active Not Available Not Available Not Available Vitamin D3 25 mcg (1,000 unit) [...] 200 mcg-25 mcg/dose powder for inhalation INHALE UN SOPLIDO POR V A ORAL A DIARIO active Not Available Not Available No t Available [employer]flex COVID-19 Antigen Home Test kit USE DIRECTED active Not Available Not Available No t Available Paxlovid 300 mg (150 mg x 2)-100 mg tablets in a dose pack TAKE 3 TABLETS BY MOUTH 2 TIMES DAILY FOR 5 DAYS active Not Available Not Available N ot Available Vitals Date Recorded Oxygen saturation Oxygen saturation in Arterial blood by Pulse oximetry Respiratory rate Body temperature Heart rate Systolic blood pressure Diastolic blood pressure Provider Name and Address Organization Details Last Updated DateTime 4 96 % 96 % 16 /min 98.5 [degF] 97 /min 118 mm[Hg] 76 mm[Hg] Not Available [facility] 4 19:11:28 Date Recorded Body temperature Respiratory rate Oxygen saturation Oxygen saturation in Arterial blood by Pulse oximetry Heart rate Systolic blood pressure Diastolic blood pressure Provider Name and Address Organization Details Last Updated DateTime 4 99.2 [degF] 16 /min 97 % 97 % 106 /min 137 mm[Hg] 74 mm[Hg] Not Available [employer] 4 18:48:52 Date Recorded Heart rate Body temperature Respiratory rate Oxygen saturation Oxygen saturation in Arterial blood by Pulse oximetry Systolic blood pressure Diastolic blood pressure Provider Name and Address Organization Details Last Updated DateTime 4 90 /min 97.6 [degF] 16 /min 96 % 96 % 90 mm[Hg] 63 mm[Hg] Not Available [employer] 4 18:31:49 Date Recorded Body temperature Oxygen saturation Oxygen saturation in Arterial blood by Pulse oximetry Respiratory rate Heart rate Systolic blood pressure Diastolic blood pressure Provider Name and Address Organization Details Last Updated DateTime 5 97.6 [degF] 95 % 95 % 18 /min 61 /min 134 mm[Hg] 78 mm[Hg] Not Available [employer] 5 19:04:46 Date Recorded Heart rate Oxygen saturation Oxygen saturation in Arterial blood by Pulse oximetry Body weight Body temperature Respiratory rate Body height Systolic blood pressure Diastolic blood pressure Provider Name and Address Organization Details Last Updated DateTime 5 69 /min 94 % 94 % 6803.88 g 98.1 [degF] 16 /min 160.02 cm 140 mm[Hg] 85 mm[Hg] Not Available [employer] 5 20:01:40 Social History None recorded. Functional Status None recorded. Mental Status None recorded. Family History Nothing Reported. Medical History No medical history recorded. Gynecological HistoryNo gynecological history recorded. Obstetrics History GPAL:G 0 P 0 0 0 0 Past Encounters Encounter ID Performer Location Encounter Start Date Encounter Closed Date Diagnosis/Indication Diagnosis SNOMED-CT Code Diagnosis ICD10 Code Diagnosis Note [id number] Marilee Boo MD [facility] [address] [place] [address] 04/26/2022 12:48:38 07/22/2022 11:34:29 Acute urinary tract infection 787681551 N39.0 51 year old female being evaluated for 2 days of dysuria and bilateral flank pain. Per data gathered by airline ticket agent, patient with normal vital signs, able to tolerate PO, with positive urine dip. Reports last UTI was 3 months ago, felt the same as current symptoms, and was treated with ciprofloxa sam.Will send urine for culture, and empiricall y treat as uncomplica micki with Cipro 250 mg BID x 3 days. [id number] Megan Willard MD [facility] - [address] [phone] 08/23/2022 15:32:23 08/25/2022 14:41:53 COVID-19 [id number] U07.1 COVID (+). mild tachypnea and cough +wheeze. no increased WOB. prescribed paxlovid, deferring oral steroids given unclear benefit in context of covid. recommende d continued adherence to maintenanc e inhalers. [id number] Kenan Hart MD [address] [phone] 12/31/2022 11:46:11 01/02/2023 10:01:19 Increased frequency of urination [id number] R35.0 This 52-year-ol d female called her PCP today complainin g of dysuria, urinary frequency, back and pelvic pain for several days. Her PCP requested visit by Leslye. She has a history of a neurogenic bladder and frequent UTIs. Her U/A was negative. I ordered a U/C to be sent to [facility]. She will follow-up with her PCP. The patient agreed with this plan. [id number] Froy Chaves MD [facility] - [address] [phone] 01/13/2023 18:35:24 01/15/2023 16:38:46 Pruritus of vagina 92207020 L29.3 Reports that she was seen earlier by [facility] for urinary symptoms. She had a negative urine dip but the culture grew back bacteria. She was treated with Cipro for a week. She continues to have symptoms but now reports vaginal itching. UA reviewed and no evidence of UTI. Will send this for culture, although doubt bacterial process. Will treat empiricall y for vaginal candidiasi s. [id number] Neisha Mario MD [address] [address] 02/04/2023 20:31:29 02/06/2023 11:05:02 Respiratory tract congestion and cough 469335083 R05.9 [id number] Geena Slater MD [facility] [address] [place] [phone] 02/12/2023 16:08:06 02/16/2023 12:55:21 Cellulitis of lower limb [id number] L03.119 right lower leg s/p animal scratch [...] to call for re eval at once. [id number] Chhaya Lovett MD [facility] [address] [place] [phone] 04/20/2023 16:36:23 04/21/2023 12:00:18 Cellulitis [id number] L03.90 [id number] SANDRA BROUSSARD MD [facility] [address] [place] [id number] 06/24/2023 15:28:26 06/25/2023 12:16:09 Candidal vulvovaginitis 33804586 B37.31 [id number] Froy Chaves MD [facility] [address] [place] [phone] 08/21/2023 17:13:09 08/22/2023 11:34:46 Acute cystitis 16039083 N30.01 Patient reports urinary frequency, burning, and urgency consistent with her typical UTI symptoms. No history of MDR infections in the past. No systemic signs/symp toms to suggest sepsis. Plan for empiric treatment and outpatient follow-up as needed. [id number] Froy Chaves MD [facility] [address] [place] [phone] 10/12/2023 19:23:25 10/13/2023 10:50:43 Cellulitis of lower limb [id number] L03.119 Patient reports being scratched (NOT bitten) by the dog, now with some surroundin g erythema. Notably does have some venous stasis changes bilaterall y but with some worsened edema. Given risk of progressio n, will treat empiricall y for cellulitis . Advised close PCP follow-up for wound check. [id number] Hang Olsen MD [facility] [address] [place] [phone] 06/26/2024 19:11:26 06/26/2024 22:29:47 Acute urinary tract infection 717535499 N39.0 fever since 06/22, no features of sepsis at this time. Will plan for 5 day treatment w levaquin. [id number] Froy Chaves MD [facility] [address] [place] [id number] 07/12/2024 18:48:44 07/12/2024 21:13:42 Cellulitis of right lower limb [id number] 3677027 L03.115 Patient with a history of cellulitis presenting with similar. Slight tachycardi a and low grade temperatur e is concerning for developing infection. Given systemic symptoms, will treat with a dose of ceftriaxon e while awaiting rx from pharmacy. Reviewed return precaution s and discussed low threshold to go to ED if symptoms worsen given potential for sepsis. [id number] Marilee Boo MD [facility] [address] [place] [phone] 07/18/2024 18:31:36 07/18/2024 23:37:59 Cellulitis of lower limb 144725754 L03.119 53 year old female being evaluated [...] assessment and plan as documented by the airline ticket agent. I provided real-time medical direction for this encounter and was immediatel y available to provide additional phone-base d assistance as needed. We discussed the diagnostic uncertaint y of home visits and associated risks. We discussed the need to seek care urgently/e mergently in the setting of any new or worsening symptoms. [id number] Neisha Mario MD [facility] [address] [place] [phone] 03/16/2025 19:04:42 03/16/2025 20:50:47 Urinary symptoms 999423147 R39.9 [id number] Chhaya Lovett MD [facility] [address] [place] [phone] 03/26/2025 20:01:36 03/27/2025 00:17:21 Acute COVID-19 [id number] U07.1 Asthma 751721645 J45.90 9 Health Concerns Section Related Observation LastModified by Organization Detai ls LastModified Time None Recorded Concern Status LastModified by Organization Details LastModified Time None Recorded Advance Directives Directive None Recorded Payers Insurance Date Sequence Insurance Name Policy Number Policy Cabrera Covered Member ID Cabrera Member ID Guarantor Name 03/16/2025 1 [facility] - DOS PRIOR TO 2023 - DUAL ELIGIBLE (MEDICARE REPLACEMENT/ADV ANTAGE - HMO) Radha Vera [id number] Radha Vera 03/26/2025 1 [facility] - DOS ON OR AFTER 2023 - DUAL ELIGIBLE - USP OPTIONS AND ONE CARE (MEDICARE REPLACEMENT/ADV ANTAGE - HMO) Radha Vera [id number] Radha Vera Notes Date Note Type Note Provider Name and Address Organization Details Recorded Time 06/26/2024 text/html [facility] Nurse Triage Notes (Horace Tran): Chief Complaints: Fever/Chills, Pain PMH: Neurologic (E.G. ALS/MS), COPD/Asthma, Hypertension Allergies: Trimethoprim-Sulfam ethoxazole Comments: [employer] Oiler verified the member's name//address and phone number. [...] emergency treatment if needed -George Tran RN Power Plant Engineer Organization Information for Franco Huff - [employer] [employer] Legal Name: [employer]? Address: [address] [place] [id number], Auto Vinyl Top Installer: Bret Champagne MD [facility] No.: [id number] Power Plant Engineer POC Test Results from Franco Huff - [facility] Rapid COVID antigen (17:55:18) COVID: - Rapid [...] ................... ................... ................... ................... ................... ................... ........ Power Plant Engineer Note From Franco Huff: Dispatched to the [...] ................... ................... ................... ................... ........ Disposition: Fulfilled Hang Olsen MD [address] [place] [address],[address], [place], [address], [employer] 06/26/2024 22:16:52 07/12/2024 text/html CRC Nurse Triage Notes (Naomie Ponce): Reason For Request: Patient has leg pain, and feels like her bones hurt. Chief Complaints: Cellulitis PMH: Neurologic (E.G. ALS/MS), COPD/Asthma, Hypertension Allergies: Trimethoprim-Sulfam ethoxazole Comments: Powerhouse Oiler verified the member's name//address and phone number. [...] ................... ................... ................... ................... ................... ................... ........ Power Plant Engineer Note From Trae Song: Pt reports today [...] ........ Disposition: Fulfilled Froy Chaves MD [address] [facility],[address], [place], [address], [place] [employer] 07/12/2024 20:10:23 07/18/2024 text/html HPI: Call returned to Radha Vear to triage below. Multiple pictures sent via Portal since 07/15. Pt handed phone to Ciarra pt caregiver. No injury to area. Warm to touch. Having pitting edema. Tender to touch. Pain with bearing. Pt was having fever last week[facility] and Keflex QID x 4 days. Pt still has 10 capsules left. Pt still having redness and pain. Pt seen by Vascular surgeon and advised elevation and increased lasix to 40mg daily. Per Ciarra no improvement since then. Advised of disposition, agrees to [facility] referral for re-assessment and POCT blood work ................... ................... ................... ................... ................... ................... ................... ........ CRC Nurse Triage Notes (Nydia Tee): Chief Complaints: Cellulitis PMH: Neurologic (E.G. ALS/MS), COPD/Asthma, Hypertension Allergies: Trimethoprim-Sulfam ethoxazole Other Allergies: Budesonide, formeterol, topiramate, oxybutynin Comments: CRC RN did not require any additional information to process this visit. ................... ................... ................... ................... ................... ................... ................... ........ Power Plant Engineer Note From Trae Sogn: I visited Ms Chuy 6 days ago and treated her for [...] pitting edema. 911 initiated for transport to [facility]. [facility]AR to [facility]. ................... ................... ................... ................... ................... ................... ................... ........ Disposition: Fulfilled Marilee Boo MD [address] [facility],[address], [place], [address], [employer] 07/18/2024 21:34:52 03/16/2025 text/html CRC Nurse Triage Notes (Lydia Koehler): Reason For Request: pt noticed a sore on her belly area Denies: Unable to void greater than 5 hours Erection that will not go away after 2 hours Fall or trauma that results in urinary incontinence in the setting of pain Fall or injury that results in incontinence in the absence of pain Lower back pain either unilateral or bilateral, unable to void, painful urination -hematuria Painful urination Frequent and increased urination with flank pain Painful urination with or without fever Inability to fully empty bladder Chief Complaints: Urinary Symptoms PMH: COPD/Asthma, Hypertension, Kidney Stones PMH Reviewed at 03/16/2025 - 17:39 Allergies Reviewed at 03/16/2025 - :39 Comments: 54 y.o female c/o pain in abdomen and lower back, urinary complaints-mild only abdominal pain, constant pain 7/10. Taking Tylenol and Naproxen as needed. Has as appointment for an ultrasound on the 04/05. Denies fever/chills. Last bowel movement- 03/16, hx of cerebral palsy, wheelchair Verified info & will place referral for UTI workup. I provided information on the mobile health provider response time and advised the patient and/or caregiver to monitor reported signs and symptoms. I discussed the warning signs of when to seek emergency care. Power Plant Engineer Organization Information for [employer] Legal Name: [employer]? Address: [address] [place] [address], Auto Vinyl Top Installer: Bret Champagne MD [facility] No.: [id number] Power Plant Engineer POC Test Results from [employer] Urine Dipstick (18:58:34) Urine leukocytes: 15 CESAR Urine nitrites: + NIT Urine urobilinogen: 0.2 URO Urine protein: 15 PRO Urine pH: 5.0 pH Urine blood: + BLO Urine specific gravity: 1.020 SG Urine ketones: 5 KET Urine bilirubin: 1 REYNALDO Urine glucose: - GLU Attachments uploaded as part of this test result can be found under Documents section. ................... ................... ................... ................... ................... ................... ................... ........ Power Plant Engineer Note From Shalom Tineo: SC8 dispatched to address listed above for report of a female democrat with UTI symptoms. Arrival on scene, patient was found inside with senior business broker seated in wheel chair, alert and oriented x4, patent airway, breathing non labored speaking in complete sentences, skin WPD in no immediate distress. +/= Chest rise. -SOB, -CP, -NVD, -Trauma, -Fever. GCS 15. Abdomen soft but tender on palpation, right sided CVA tenderness present. Medical Artist reports that the patient has been having a constant diffuse abdominal pain radiating to the right flank since about Thursday. Medical Artist also reports blood present in diaper but unsure of where the blood came from, reports blood subsided yesterday. Medical Artist reports patient has history of both UTI and Kidney stones, last one of each being over a year ago. Medical Artist reports no recent trauma, fever, chills, SOB, CP, NVD. Medical Artist denies any urinary symptoms that were consistent with last UTI but would still like patient to be tested for one. Medical Artist reports normal food/fluid intake along with medication compliance. Patient vital signs obtained as noted. Patient able to provide urine sample via clean catch, urine culture obtained for lab sheila send out followed by urine dipstick as noted. [facility] consulted, advised she would send prescription for Levofloxacin for patient to take and provided orders to [facility] for 500mg Levofloxacin PO. Levofloxacin 500mg PO administered to patient without incident, six patient rights verified prior. Red flags discussed with patient and senior business broker, advised to call back if patient condition worsens. SC8 Clear. [facility] Lab Orders: urinalysis, dipstick: Performed culture, urine: Performed [facility] Medication Orders: levofloxacin 500 mg tablet: Administered ................... ................... ................... ................... ................... ................... ................... ........ [facility] Consulted: Neisha Mario ................... ................... ................... ................... ................... ................... ................... ........ Disposition: Fulfilled Neisha Mario MD [address] [facility],[address], [place], [address], [employer] 03/16/2025 20:40:28 03/26/2025 text/html CRC Nurse Triage Notes (Horace Tran): Reason For Request: COVID test/congestion/fev er Denies: Increased work of breathing/labored ? with or without fever Unable to speak in full sentences without distress Discoloration of skin -cyanosis Needs to sleep sitting up, can? t catch breath Shortness of breath in setting of confusion Chief Complaints: Fever, Common Cold PMH: COPD/Asthma, Hypertension, Kidney Stones, Sleep Apnea PMH Reviewed at 03/26/2025 - 15:14 Allergies Reviewed at 03/26/2025 15:14 Comments: 54 y.o female complains of Fever, Common Cold Pt's sister calling reporting pt tested (+) for COVID on home test on 03/23. Pt reportedly with cough, runny nose, chest congestion, fever (Tmax 101F), and body aches. Sister reports Radha's symptoms started night, but have increased since then. Sister reports pt has some SOB, has been using home nebulizer treatments. Reports pt can speak in full, complete sentences at time of call. I provided information on the mobile health provider response time and advised the patient and/or caregiver to monitor reported signs and symptoms. I discussed the warning signs of when to seek emergency care. Power Plant Engineer Organization Information for Sandra Reyes [employer] Legal Name: [employer]? Address: [address] [place] [id number], Auto Vinyl Top Installer: Bret Champagne MD CLIA No.: [id number] Power Plant Engineer POC Test Results from [employer] Rapid COVID antigen (18:42:22) COVID: + Attachments uploaded as part of this test result can be found under Documents section. Rapid influenza antigen (18:42:23) Flu: - Rapid strep test (18:42:24) Strep: - ................... ................... ................... ................... ................... ................... ................... ........ Power Plant Engineer Note From Sandra Reyes: [facility] makes pt contact. She is wearing a mask and sitting in her walker in the kitchen of the home where she lives w/ family. She is alert and tracking and smiling at [facility]. Pt is generally well-appearing and not in acute distress. No stridor or sonorous respirations are present, pulling down the mask there is no facial droop or one-sided weakness observed, and she is not bleeding anywhere. Her skin is w/p/d. Pt tested positive for COVID via home test on . She endorses congestion, cough, rhinitis, body aches, and had a fever of 100.4 last night. No fevers/chills are reported today. Pt also denies cp, sob, n/v/d, bladder/bowel issues, or sore throat. She has been eating and drinking normally and staying well-hydrated. She has an SVN, but has not used it. She has used her albuterol inhaler a couple times since testing positive and it is helping. She has been on prednisone for her asthma in the past, but it has been many years . [facility] swabs pt for COVID/flu and strep A. Vital signs are gathered and pt is assessed. Pt tests positive for COVID and negative for the other two. Physical assessment is performed. HEENT is unremarkable. Oral mucosa and conjunctiva are pink and moist. Lung sounds are expiratory wheezes in the mid region and junky in the bases bilaterally. No peripheral edema is noted and no changes are reported. [facility] contacts [facility] and discusses the above. [facility] recommends pt continue w/ supportive care and orders [facility] to administer a duoneb. [facility] administers one duoneb at 8 lpm O2 via nebulizer mask. Pt tolerates treatment well and lung sounds improve and are clear to auscultation bilaterally. She is informed of s/s which require emergency care. [facility] prescribes a 5 day course of prednisone for the pt w/ the instructions to start them tomorrow if she is still feeling the same as she does today. Pt states her verbal understanding of the instructions. MIH is clear. Report completed by JAMES Reyes [id number]. [facility] Lab Orders: rapid SARS CoV 2 Ag, QL IA, respiratory specimen: Performed rapid flu (A+B): Performed rapid strep group A, throat: Performed [facility] Medication Orders: ipratropium 0.5 mg-albuterol 3 mg (2.5 mg base)/3 mL nebulization soln: Administered albuterol sulfate 2.5 mg/3 mL (0.083 %) solution for nebulization: Administered ipratropium 0.5 mg-albuterol 3 mg (2.5 mg base)/3 mL nebulization soln: Administered ................... ................... ................... ................... ................... ................... ................... ........ [facility] Consulted: Chhaya Lovett ................... ................... ................... ................... ................... ................... ................... ........ Disposition: Fulfilled Chhaya Lovett MD [address] [place] [address],[address], [place], [phone], [facility] 03/26/2025 20:31:21 OBGyn Episode No OBEpisode recorded.
--- OUTSIDE RECORDS SUMMARY | 2025-04-05 14:27 | XMS_ITS | Encounter Summary ---
Author Organization [employer] Address [address] [facility] [address] [place] [address] Care Team Providers Care Chimney Builder Helper Name Role Phone Marisabel Michel MD Primary Care Provider [phone] Encounter Details Date Type Department Care Team (Late st Contact Info) Description 06/30/2023 Abstract [facility] MEDICINE [address] [place] [address] [phone] Marisabel Michel MD [address] [place] [address] [phone] Social History Tobacco Use Types Packs/Day Years [...] Description 06/05/2025 1:45 PM EDT Office Visit [facility] MEDICINE [address] [place] [address] [phone] Marisabel Michel MD [address] [place] [address] [phone] documented as of this encounter Procedures Procedure Name Priority Date/Time Associated Diagnosis Comments HM COLONOSCOPY Routine 06/12/2021 documented in this encounter Results * Hm Colonoscopy (06/12/2021) Colonoscopy Normal Normal George Lambert MD HEALTH MAINTENANCE Edited Result - Final documented in this encounter Visit Diagnoses Not on filedocumented in this encounter Additional Health Concerns Assessment Noted Time PHQ-9 Depression Total Score: 2 02/25/20 23 1:12 PM EDT documented as of this encounter Care Teams Chimney Builder Helper Relationship Specialty Start Date End Date Marisabel Michel MD [address] [place] [address] PCP - General Family Medicine 09/04/11 documented as of this encounter
--- OUTSIDE RECORDS SUMMARY | 2025-04-05 14:27 | XMS_ITS | Clinical Summary ---
Author Organization [employer] Address [address] [facility] [address] [place] [address] Care Team Providers Care Biomedical Photographer Name Role Phone Marisabel Michel MD Primary Care Provider [phone] Allergies Active Allergy Reactions Criticality Noted Date [...] TOPICALLY TWICE A DAY 60 g 11 11/06/ 023 Active alendronate (Fosamax) 70 MG tablet TOME MARIAH TABLETA POR VIA ORAL EVERY WEEK IN THE MORNING, AT LEAST 30 MIN BEFORE FIRST FOOD, BEVERAGE, OR MEDICATION OF DAY 12 tablet 3 Active Blood Pressure Monitor [facility] [place] BP regularly as directed by your health care provider and as needed when you feel sick 1 each Active cholecalciferol (D3-1000) 25 MCG (1000 UT) capsule TAKE 1 CAPSULE BY MOUTH EVERY DAY 90 capsule 3 Active furosemide (Lasix) 40 MG tablet Take 1 tablet by mouth Once per day. Active triamcinolone (Kenalog) 0.025 % ointment PLEASE SEE ATTACHED FOR DETAILED DIRECTIONS Active ascorbic acid (Vitamin C) 500 MG tablet Take 1 tablet (500 mg) by mouth at bedtime. 90 tablet 3 Active gabapentin (Neurontin) 100 MG capsule Take 1 capsule by mouth at bedtime. May take 2 capsules if pain relief is inadequate. 90 capsule 3 Active hydrOXYzine HCl (Atarax) 25 MG tablet Take 1 tablet (25 mg) by mouth every 8 (eight) hours if needed for itching or allergies. 90 tablet 3 Active Bismuth Subsalicylate 262 MG tablet Take 2 tablets by mouth 4 times daily as needed 112 tablet 2 Active ondansetron ODT (Zofran-ODT) 4 MG disintegrating tablet Take 1 tablet (4 mg) by mouth every 8 (eight) hours if needed for nausea or vomiting. 30 tablet 3 Active Oyster Shell Calcium 500 MG tabletIndications :Osteopenia, unspecified location TAKE 1 TABLET BY MOUTH every other day 45 tablet 3 Active ferrous sulfate 325 (65 Fe) MG tablet TAKE 1 TABLET BY MOUTH EVERY OTHER DAY 45 tablet 3 Active sodium chloride ([place]) 0.65 % nasal spray Administer 1 spray into each nostril if needed for congestion. 15 mL 11 024 2024 Active albuterol (Ventolin HFA) 108 (90 [...] BY MOUTH EVERY DAY 90 tablet 1 025 Active omeprazole (PriLOSEC) [address] capsule TAKE 1 CAPSULE BY MOUTH BEFORE BREAKFAST AND BEFORE EVENING MEAL. DO NOT CRUSH OR CHEW. 180 capsule 3 025 Active diphenhydrAMINE (Banophen) 25 MG capsuleIndication s:Allergic rhinitis due to other allergic trigger, unspecified seasonality TAKE 2 CAPSULES BY MOUTH EVERY 6 HOURS 30 capsule 3 025 Active clotrimazole (Mycelex) 10 MG leonrado TAKE 1 TABLET BY MOUTH THREE TIMES DAILY 90 Leonardo 1 025 Active fluticasone (Flonase) 50 MCG/ACT nasal spray USE 1-2 SPRAYS IN EACH NOSTRIL ONCE PER DAY. SHAKE GENTLY. CLEAN TIP AND REPLACE CAP. 48 mL 1 025 Active ciclopirox (Loprox) 0.77 % cream APLIQUE AL AREA AFECTADA DOS VECES AL MYAH 90 g 1 025 Active docusate sodium (Colace) 100 MG capsule TAKE 1 CAPSULE BY MOUTH TWICE A DAY 180 capsule 1 025 Active naproxen (Naprosyn) 375 MG tablet TAKE 1 TABLET BY MOUTH TWICE A DAY NEEDED 30 tablet 025 Active amitriptyline (Elavil) 10 MG tablet TAKE 1 TABLET BY MOUTH AT BEDTIME 90 tablet 3 025 Active COVID-19 At Home Antigen Test kit Use as instructed 2 kit 1 025 Active amitriptyline (Elavil) 10 MG tablet TOME MARIAH TABLETA TODOS [place] ACOSTARSE 90 tablet 3 024 2024 Discontinued(R eorder (will not trigger notification to Pharmacy)) docusate sodium (Colace) 100 MG capsule TAKE 1 CAPSULE BY MOUTH TWICE A DAY 180 capsule 1 024 2024 Discontinued naproxen (Naprosyn) 375 MG tablet TOME 1 TABLETA POR VIA ORAL DOS VECES AL MYAH CUANDO SEA NECESARIO 30 tablet 025 2024 Discontinued Active Problems Problem Noted Date Diagnosed Date Acquired hammer toe of left foot 02/18/2025 Assessment & Plan (02/18/2025 5:07 AM EDT): - following with data architect - she is pleased with her new data architect's care - continue following the recommendation from the data architect Acquired hammer toe of right foot 02/18/2025 Assessment & Plan (02/18/2025 5:07 AM EDT): - following with data architect - she is pleased with her new data architect's care - continue following the recommendation from the data architect Ulcer of toe of left foot 02/18/2025 Assessment & Plan (02/18/2025 5:07 AM EDT): - following with data architect - she is pleased with her new data architect's care - continue following the recommendation from the data architect Environmental allergies 10/05/2024 Orthopnea 10/05/2024 Osteoarthritis of [...] / lateral compartment osteoarthritis. - seen by [facility] on 05/18/24 and was given intraarticular [...] of osteoporosis / osteopenia - Following with data architect; seen yesterday - Evaluate with MRI due [...] PCP and furosemide which was prescribed by awake overnight counselor -Continue working on lifestyle modifications -Continue self-monitoring [...] PCP and furosemide which was prescribed by awake overnight counselor -Continue working on lifestyle modifications -Continue self-monitoring [...] PCP and furosemide which was prescribed by awake overnight counselor -Continue working on lifestyle modifications -Continue self-monitoring [...] (07/01/2023 3:47 PM EDT): -followed by urologist, [facility] seen on 04/07/23, annual f/u -most recent [...] Plan (07/29/2024 10:22 AM EDT): -followed by hedis coordinator, Dr. Rivers -advised to schedule appointment with Dr. Rivers to evaluate for her cellulitis; possible stasis dermatitis and/or atopic dermatitis. Assessment & Plan (03/08/2023 7:04 PM EDT): -followed by hedis coordinator, Dr. Rivers Tubular adenoma of colon 03/08/2023 [...] Plan (07/01/2023 3:46 PM EDT): -Followed by Trip Follower. -Cont moisturization. -Leg elevation -Low sodium diet Assessment & Plan (03/08/2023 7:16 PM EDT): Followed by Trip Follower. -Cont moisturization. -Keep legs elevated. 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 Assessment & Plan (06/28/2024 5:46 AM EDT): - bilateral - following with [facility] orthopedic provider - received steroid injection to left knee in January 2023 - received steroid injection to right knee in April 2024 Assessment & Plan (03/08/2023 6:55 PM EDT): - seen by [facility] orthopedic provider on 12/26/22 - received steroid injection to left knee Assessment & Plan (10/29/2022 2:24 PM EST): ?? Last X-ray in 2016 showed patella glynn ?? Will refer to [...] AM EDT): Previously followed by allergy / charge entry specialist, Dr. Loco, now waiting for an appt with new specialist Evaluated by [facility] in 2022, patient was offered immunotherapy, but had been hesitant Currently following with [facility] pulmonology for both allergy, asthma, and FARTUN Continue cetirizine 10 mg bid Continue montelukast 10 mg daily Continue flonase Assessment & Plan (12/25/2023 6:13 AM EST): Previously followed by allergy / charge entry specialist, Dr. Loco, now waiting for an appt with new specialist Evaluated by [facility] in 2022, patient was offered immunotherapy, but had been hesitant Currently following with [facility] for both allergy, asthma, and FARTUN Continue cetirizine 10 mg bid Continue montelukast 10 mg daily Continue flonase Assessment & Plan (03/08/2023 7:14 PM EDT): Previously followed by allergy / charge entry specialist, Dr. Loco, now waiting for an appt with new specialist Continue cetirizine 10 mg bid Continue montelukast 10 mg daily Continue flonase Assessment & Plan (10/29/2022 2:29 PM EST): ?? Followed by allergy / charge entry specialist, Dr. Mcelroy ?? Continue cetirizine 10 mg bid ?? Continue montelukast 10 mg daily Asthma 08/29/2015 Assessment & Plan (02/14/2025 9:44 AM EDT): -Previously followed by Dr. Loco, allergy /charge entry specialist -Currently following with Dr. Pederson [facility] -Exacerbation 1-2 times per year -Last exacerbation in November 2020, Rx Prednisone (-Continue Spiriva) - Dr. Loco prescribed, but not mentioned in Dr. Pederson's note -Continue Breo -Continue montelukast -Continue albuterol HFA/neb prn Treatment Hx: Advair, difficulty using Diskus; Pulmicort; Incruse Assessment & Plan (06/28/2024 5:58 AM EDT): -Previously followed by Dr. Loco, allergy /charge entry specialist -Currently following with Dr. Pederson [facility] -Exacerbation 1-2 times per year -Last exacerbation in November 2020, Rx Prednisone (-Continue Spiriva) - Dr. Loco prescribed, but not mentioned in Dr. Pederson's note -Continue Breo -Continue montelukast -Continue albuterol HFA/neb prn Treatment Hx: Advair, difficulty using Diskus; Pulmicort; Incruse Assessment & Plan (03/29/2024 5:07 PM EDT): -Previously followed by Dr. Loco, allergy /charge entry specialist -Currently following with Dr. Pederson [facility] -Exacerbation 1-2 times per year -Last exacerbation in November 2020, Rx Prednisone (-Continue Spiriva) - Dr. Loco prescribed, but not mentioned in Dr. Pederson's note -Continue Breo -Continue montelukast -Continue albuterol HFA/neb prn Treatment Hx: Advair, difficulty using Diskus; Pulmicort; Incruse Assessment & Plan (12/25/2023 6:04 AM EST): -Previously followed by Dr. Loco, allergy /charge entry specialist -Currently following with Dr. Pederson [facility] -Exacerbation 1-2 times per year -Last exacerbation in November 2020, Rx Prednisone (-Continue Spiriva) - Dr. Loco prescribed, but not mentioned in Dr. Pederson's note -Continue Breo -Continue montelukast -Continue albuterol HFA/neb prn Treatment Hx: Advair, difficulty using Diskus; Pulmicort; Incruse Assessment & Plan (07/01/2023 3:43 PM EDT): -Previously followed by Dr. Loco, allergy /charge entry specialist -Exacerbation 1-2 times per year -Last exacerbation in November 2020, Rx Prednisone -Continue Spiriva -Continue Breo -Continue Singulair -Continue albuterol HFA/neb prn Treatment Hx: Advair, difficulty using Diskus; Pulmicort; Incruse Assessment & Plan (03/08/2023 6:59 PM EDT): -Previously followed by Dr. Loco, allergy /charge entry specialist -Exacerbation 1-2 times per year -Last exacerbation in November 2020, Rx Prednisone -Continue Spiriva -Continue Breo -Continue Singulair -Continue albuterol HFA/neb prn Treatment Hx: Advair, difficulty using Diskus; Pulmicort; Incruse Assessment & Plan (10/28/2022 9:38 PM EST): ?? Nuclear Auxiliary Operator, Dr. Mcelroy, upcoming appt ?? Continue Breo [...] will continue using furosemide judiciously. - patient's fisher troll line recommended to double the dose of furosemide, [...] will continue using furosemide judiciously. - patient's fisher troll line recommended to double the dose of furosemide, [...] Encounters Date Type Department Care Team Description 04/04/2025 Refill [facility] [address] [place] [address] Marisabel Michel MD 03/30/2025 Orders Only [facility] [address] [place] [address] Marisabel Michel MD 03/28/2025 Telephone [facility] [address] [place] [address] Marisabel Michel MD 03/28/2025 Orders Only [facility] [address] [place] [address] Marisabel Michel MD Prediabetes (Primary Dx); Screening for lipid disorders; Screening for diabetes mellitus; Hypokalemia 03/27/2025 Telephone [facility] [address] [facility] [place] [address] Marisabel Michel MD FYI 03/17/2025 Telephone [facility] [address] [facility] [place] [address] Nilda Trent, RN 03/16/2025 Telephone [facility] [address] [place] [address] Marisabel Michel MD Nurse Triage 03/16/2025 Refill [facility] [address] [place] [address] Marisabel Michel MD 03/15/2025 Refill [facility] [address] [place] [address] Clair Lombardi MD 03/12/2025 Refill [facility] [address] [place] [address] Marisabel Michel MD 03/02/2025 Refill [facility] [address] [place] [address] Marisabel Michel MD 03/01/2025 Refill [facility] [address] [place] [address] Marisabel Michel MD 02/14/2025 1:00 PM EDT Office Visit [facility] [address] [facility] [place] [address] Marisabel Michel MD Moderate persistent asthma without complication (Primary Dx); FARTUN (obstructive sleep apnea); Primary hypertension; Prediabetes; Nonintractable headache, unspecified chronicity pattern, unspecified headache type; Cerebral palsy, unspecified type (CMS/HCC); Wheelchair dependence; Allergic rhinitis due to other allergic trigger, unspecified seasonality; Acquired hammer toe of right foot; Acquired hammer toe of left foot; Ulcer of toe of left foot, unspecified ulcer stage (CMS/HCC) 02/14/2025 Telephone [facility] [address] [facility] [place] [address] Marisabel Michel MD 02/14/2025 Travel 02/09/2025 Telephone [facility] [address] [place] [address] Marisabel Michel MD chart prep 01/27/2025 Refill [facility] [address] [place] [address] Marisabel Michel MD Allergic rhinitis due to other allergic trigger, unspecified seasonality 01/12/2025 Telephone [facility] [address] [place] [address] Marisabel Michel MD Durable Medical Equipment 01/08/2025 Travel from Last 3 Months Immunizations Immunization Administration Dates Next Due Hep B, adult [...] 06/10/2021 12:07 AM EDT Plan of Treatment Upcoming Encounters Date Type Department Care Team (Late st Contact Info) Description 06/05/2025 1:45 PM EDT Office Visit [facility] [address] [place], [place] [phone] Marisabel Michel MD [address] [place], [place] [phone] Health Maintenance Due Date Last Done Comments CT Colonography 1970 FIT DNA/Cologuard 1970 FIT 1970 FOBT 1970 Sigmoidoscopy 1970 Pap Smear 1991 HPV/Cotest 2000 Depression Screening 03/29/2025 03/29/2024, 03/29/20 24 SDOH Screening 03/29/2025 03/29/2024 Diabetes: Hemoglobin A1C 08/02/2025 024, 12/07/2023, 07/09/2023, Additional history exists Alcohol/Substance Use Screening 09/19/2025 09/19/2024 Tobacco Screening 02/14/2026 02/14/2025 Mammogram 03/21/2026 03/21/2024, 0302/2023, 02/12/2022, Additional history exists Colonoscopy 06/12/2026 06/12/2021 [...] patient's age to complete this topic Meningococcal B Vaccine Aged Out No l onger eligible based on patient's age to complete [...] PM EDT) Hemoglobin A1c 6.1(H) <6.0 % [facility] Comment:Hemoglobin A1C Refer ence Range Adults: 4.8 - 6.0 % Non diabetic: < 6.0 % Goal: < 7.0 %Additional Action Suggested: > 8.0 %Note: Hemoglobin A1c results are invalid for patients with abnormal amounts of HbF. Blood transfusions may impact the HbA1c concentration in the patient sample. Estimated Average Glucose 128 mg/dL [facility] Comment:eAG = Estimated ave rage glucose which is %A1C expressed asaverage glucose, using the formula of the G5Y-[id number] Glucose study (ADAG), Diabetes Care, Vol.31,#8,Jun. 2007 Blood Venous blood specimen / Unknown 08/02/2024 5:05 PM EDT 08/02/2024 5:10 PM EDT us Marisabel Michel MD LAB BLOOD ORDERABLES Final Resul t [facility] [address] [place] [address] [phone] * BI Mammogram Screening Tomosynthesis Bilateral (03/21/2024 1:10 PM EDT) Anatomical Region Laterality Modality Breast Bilateral Mammography 03/21/2024 1:10 PM EDT Narrative 04/17/2024 6:32 AM EDT ? [facility] [place] ? [address] ?[place] [address] ? Mammography Report ? Signed ? Patient: Vera Vera,Radha ?MR#: ?? [id number] ? : 1970 ?Acct:[id number] ? Age/Sex: 53 / F ?ADM Date: 04/29/24 ? Loc: HO.MAMMO ? Attending Dr: Marisabel Michel MD ? Ordering Physician: Marisabel Michel MD ?Results: 1Negative ? Date of Service: 03/21/24 ?Follow Up: 1 Year From Orig ?? inal Mammogram ? Procedure(s): MM tomosynthesis screening BI ?? Accession Number(s): [id number] ? cc: Marisabel Michel MD ? EXAMINATION: [...] 04/17/24628 ? DD/ 1310 ? TD/TT: ? Fire Extinguisher Installer: ? Procedure Note Donotuseinterpreter, Image - 04/17/2024 [facility] [address] [place] [address] Mammography Report Signed Patient: Radha KimballMR#: [id number] : 1970Acct:[id number] Age/Sex: 53 / FADM Date: 03/21/24 Loc: HO.MAMMO Attending Dr: Marisabel Michel MD Ordering Physician: Marisabel Michelesults: 1Negative Date of Service: 03/21/24Follow Up: 1 Year From Orig inal Mammogram Procedure(s): MM tomosynthesis screening BI Accession Number(s): [id number] cc: Marisabel Michel MD EXAMINATION: MM SCREENING [...] in OV> 04/17/24 0629 DD/ 1310 TD/TT: Fire Extinguisher Installer: Marisabel Michel MD IMG BI PROCEDURES Final Result * (ABNORMAL) Lipid Panel with Reflex to Direct LDL (12/07/2023 10:20 AM EST) Triglycerides 71 <150 mg/dL [facility] Comment:Desirable Triglyceri de: less than 150 mg/dLBorderline High Triglyceride 150-199 mg/dLHigh Triglyceride: 200-499 mg/dLVery High Triglyceride: greater than or equal to 5OO mg/dL Cholesterol 167 <200 mg/dL [facility] Comment:Desirable Cholestero l: less than 200 mg/dLBorderline High Cholesterol: 200-239 mg/dLHigh Cholesterol: greater than 239 mg/dL LDL Cholesterol Calculated 110(H) <100 mg/dL [facility] Comment:Desirable LDL: less than 100 mg/dLNear Optimal/Above Optimal LDL: 110- 129 mg/dLBorderline High LDL: 130-159 mg/dLHigh LDL: 160-189 mg/dLVery High LDL: greater than or equal to 190 mg/dL HDL Cholesterol 43 >40 mg/dL [facility] Comment:Desirable HDL: great er than 40 mg/dL Note: This HDL assay may give artificially low results in patients with liver disease. Blood 12/07/2023 10:2 0 AM EST 12/07/2023 10:20 AM EST Marisabel Michel MD LAB BLOOD ORDERABLES Final Resul t [facility] [address] [place] [phone] * Hm Colonoscopy (06/12/2021) Colonoscopy Normal Normal us George Lambert MD HEALTH MAINTENANCE Edited Result - Final from Last 3 Months or Most Recently Relevant to Health Maintenance Insurance [facility] ONE CARE < [address] [place] [id number] Care Teams Biomedical Photographer Relationship Specialty Start Date End Date Marisabel Michel MD [address] [place] [id number] PCP - General Family Medicine 09/04/11
--- OUTSIDE RECORDS SUMMARY | 2025-04-05 14:27 | XMS_ITS | Patient Health Record ---
[facility] Organization [facility] Address [address] [place] [address] Care Team Providers Care Drip Molder Name Role Phone Marisabel Michel Primary Care Provider Yoni Glover Unavailable [phone] Gilbert Matson Unavailable [phone] Halle Bustillo Unavailable [phone] Allergies Allergen (clinical drug ingredient) Drug/Non Drug [...] application Externally Twice a day Active Ipratropium [place] Active Prednisone Not-Takin g Systane Active Jock [...] Orally for 30 day(s) Active Saline Nasal [place] as needed A ctive Meclizine HCl 12.5 [...] Problem Acquired hammer toe of right foot (917667146488 9105) Other hammer toe(s) (acquired), right foot (M20.41) Active confirmed Problem Type 2 diabetes mellitus with peripheral angiopathy (502579634) Type 2 diabetes mellitus with diabetic peripheral angiopathy without gangrene (E11.51) Active confirmed Q7(A), Q8(2B), Q9(1B,2C) Problem Acquired hammer toe of left foot (238081048632 9103) Other hammer toe(s) (acquired), left foot (M20.42) Active confirmed Problem Ulcer of toe of left foot (disorder) (257275576331 53024) Skin ulcer of toe of left foot, limited to breakdown of skin (L97.521) Active confirmed Response to treatment Nonapplicable Vital Signs Blood pressure diastolic 76 mm Hg 01/30/2025 Height 5ft in 01/30/2025 Blood pressure systolic 127 mm Hg 01/30/2025 Weight 178 lbs 01/30/2025 BMI 34.76 kg/m2 01/30/2025 Procedures Procedure Date Ordered Date Performed Result Body Sit e 89070- Debride <25 sq cm 05/03/2024 N/A 57102-NMULAKC NAIL, 6 OR MORE 10/07/2024 N/A 38468-BJJL SKIN LESIONS, 2 TO 4 10/07/2024 N/A 49638-EHHBLFD NAIL, 6 OR MORE 01/30/2025 N/A 78343- Debride <25 sq cm 01/30/2025 N/A 43337-IMEE SKIN LESIONS, 2 TO 4 01/30/2025 N/A Encounters Encounter Location Date Provider Diagnosis [facility] [address] [address] 05/03/2024 Gilbert Matson Tinea unguium B35.1 ; Pain in right toe(s) M79.674 ; Pain in left toe(s) M79.675 ; Skin disease L98.9 ; Type 2 diabetes mellitus with diabetic polyneuropathy E11.42 ; Ingrowing nail L60.0 ; Non-pressure chronic ulcer of other part of right foot limited to breakdown of skin L97.511 and Plantar fascial fibromatosis M72.[address] [address] 05/10/2024 Gilbert Matson Tinea unguium B35.1 ; Pain in right toe(s) M79.674 ; Pain in left toe(s) M79.675 ; Skin disease L98.9 ; Type 2 diabetes mellitus with diabetic polyneuropathy E11.42 ; Ingrowing nail L60.0 and Non-pressure chronic ulcer of other part of right foot limited to breakdown of skin L97.[address] [address] 07/29/2024 Gilbert Matson Tinea unguium B35.1 ; Pain in right toe(s) M79.674 ; Pain in left toe(s) M79.675 ; Skin disease L98.9 ; Type 2 diabetes mellitus with diabetic polyneuropathy E11.42 ; Ingrowing nail L60.0 and Cellulitis of right lower extremity L03.[address] 08/26/2024 Gilbert Matson Tinea unguium B35.1 ; Pain in right toe(s) M79.674 ; Pain in left toe(s) M79.675 ; Skin disease L98.9 ; Type 2 diabetes mellitus with diabetic polyneuropathy E11.42 and Cellulitis of toe of left foot L03.[address] 10/07/2024 Halle Bustillo Type 2 diabetes mellitus with diabetic polyneuropathy E11.42 and Tinea unguium B35.[address] [address] 01/30/2025 Yoni Bhatt Type 2 diabetes mellitus with diabetic peripheral angiopathy without gangrene E11.51 ; Tinea unguium B35.1 ; Pain in right toe(s) M79.674 ; Pain in left toe(s) M79.675 ; Other hammer toe(s) (acquired), left foot M20.42 ; Other hammer toe(s) (acquired), right foot M20.41 and Skin ulcer of toe of left foot, limited to breakdown of skin L97.521 [facility] [place] [address] [address] [address] 07/22/2024 Gilbert Matson Assessments Encounter Date Diagnosis [...] Treatment Pending Test Test Name Order Date 13956-RBPEIMF NAIL, 6 OR MORE 06/02/2017 21516-CBKENBH NAIL, 6 OR MORE 09/01/2017 95166-AMZBVLB NAIL, 6 OR MORE 12/22/2017 56712-JMBJZEN NAIL, 6 OR MORE 03/23/2018 10121-TKUYEQH NAIL, 6 OR MORE 06/01/2018 14288-LAFUTLP NAIL, 6 OR MORE 10/29/2018 58078-KRRVJZU NAIL, 6 OR MORE 08/06/2018 34133-JZFUMDW NAIL, 6 OR MORE 10/07/2024 38153-NKJAXLW NAIL, 6 OR MORE 01/30/2025 62066-Tdwyoueo Plate 08/06/2018 14966-Fbrwxtzn Plate 12/22/2017 17186- Debride <25 sq cm 06/22/2018 43423- Debride <25 sq cm 01/30/2025 65628- Debride <25 sq cm 05/03/2024 75555-MOFEVKC SKIN/TISSUE 02/04/2022 53310-ZGIZMTU SKIN/TISSUE 05/12/2022 95370 I&D ABSCESS- SIMPLE,SINGLE 019 23305 I&D ABSCESS- SIMPLE,SINGLE 020 06526- I&D ABSCESS-COMPLICATED,MULTI 08/2018 79149- I&D ABSCESS-COMPLICATED,MULTI 81534-QEOY SKIN LESIONS, 2 TO 4 06/01/20 18 52569-IUUP SKIN LESIONS, 2 TO 4 08/06/20 18 81289-THLB SKIN LESIONS, 2 TO 4 06/02/20 17 90871-OOMB SKIN LESIONS, 2 TO 4 03/23/20 18 44993-UGIH SKIN LESIONS, 2 TO 4 12/22/19 18 37350-YSYV SKIN LESIONS, 2 TO 4 09/01/20 17 72037-AISY SKIN LESIONS, 2 TO 4 10/26/20 20 99109-CZVF SKIN LESIONS, 2 TO 4 01/30/20 21 26228-KTQP SKIN LESIONS, 2 TO 4 04/30/20 21 17682-VPYZ SKIN LESIONS, 2 TO 4 07/30/20 21 35750-CHEX SKIN LESIONS, 2 TO 4 10/25/20 21 73761-ZYBZ SKIN LESIONS, 2 TO 4 12/27/19 22 76616-DFWI SKIN LESIONS, 2 TO 4 02/05/20 22 04009-TCJK SKIN LESIONS, 2 TO 4 01/24/20 20 02573-EYPO SKIN LESIONS, 2 TO 4 04/24/20 20 05590-DTWR SKIN LESIONS, 2 TO 4 07/24/20 20 61363-YIMQ SKIN LESIONS, 2 TO 4 02/09/20 19 19358-VOEP SKIN LESIONS, 2 TO 4 05/10/20 19 34082-MRYQ SKIN LESIONS, 2 TO 4 07/26/20 19 53649-PGEJ SKIN LESIONS, 2 TO 4 11/08/20 19 67605-XTAE SKIN LESIONS, 2 TO 4 07/01/20 22 91546-EHFT SKIN LESIONS, 2 TO 4 10/29/20 18 14154-KMSG SKIN LESIONS, 2 TO 4 01/31/20 25 73766-VQPF SKIN LESIONS, 2 TO 4 10/07/20 24 Next Appt Details Provider Name:Yoni Bhatt , 05/08/2025 01:30:00 PM, [address] [facility], [facility] [address], [place], [address], Insurance Providers Payer Name Payer Address Payer Phone Subscriber Number Group Number Insured Name Patient Relationship to Insured Coverage Start Date Coverage End Date [facility] [employer] Claims [address] [place] [id number] Radha Vera Self - patient is the insured 7 Medical (General) History Medical History History ICD Code Arthritis asthma Cerebral palsy Chicken pox Epilepsy Knee Pain Kidney stones Migraines Paralysis Poor circulation Reflux Surgical History Surgery Date(Month/Year) appendectomy 2009 hand/wrist 1983 leg surgery 1981 Hospitalization History Reason Date([place] [facility] [place]gent Care- Pain in ankle- negetive ult rasound and x-ray 04/2019 ER in [place] 02/2018
--- OUTSIDE RECORDS SUMMARY | 2025-04-05 14:27 | XMS_ITS | Encounter Summary ---
Author Organization [employer] Address [address] [place] [address] 7 [place] [address] Care Team Providers Care Computer Networking Instructor Adjunct Name Role Phone Marisabel Michel MD Primary Care Provider [phone] Reason for Referral * Consultation (Routine) - Closed Specialty Diagnoses / Procedures Referred By Vee t Referred To Contact Physical Therapy Diagnoses Cerebral palsy, unspecified type (CMS/HCC) Wheelchair dependence Marisabel Michel MD [address] [place] [address] Phone: tel: fax: Referral ID Status Reason Start Date Expiration Date V isits Requested Visits Authorized [id number] Closed Specialty Services Required 11/25/2024 11/25/2025 1 1 * Consultation (Routine) - Closed Specialty Diagnoses / Procedures Referred By Vee carter Referred To Contact Occupational Therapy Diagnoses Cerebral palsy, unspecified type (CMS/HCC) Wheelchair dependence Marisabel Michel MD [address] [place] [address] Phone: tel: fax: Referral ID Status Reason Start Date Expiration Date V isits Requested Visits Authorized [id number] Closed Specialty Services Required 11/25/2024 11/25/2025 1 1 Encounter Details Date Type Department Care Team (Late st Contact Info) Description 11/25/2024 Orders Only [facility] [address] [place] [phone] Marisabel Michel MD [address] [place] [address] Cerebral palsy, unspecified type (CMS/HCC) (Primary Dx); [...] Description 06/05/2025 1:45 PM EDT Office Visit [facility] [address] [place] [address] Marisabel Michel MD [address] [place] [address] Scheduled Referrals Name Type Priority Associated Diagnoses [...] documented as of this encounter Care Teams Computer Networking Instructor Adjunct Relationship Specialty Start Date End Date Marisabel Michel MD [address] [place] [address] PCP - General Family Medicine 09/04/11 documented as of this encounter
== END 2025-04-05 14:23 | disposition home or self-care (01) ==
LOC: HO.HMGCX 14:22
PROVIDERS: PCP Family Medicine; Visit Provider Urology
DX: N20.0 Calculus of kidney (principal)
CPT/HCPCS: 76775

== ENCOUNTER → 2025-04-05 14:28 | Outpatient (BNV) | payer OTHER, SELFPAY | PROVIDERS: PCP Family Medicine; Visit Provider Radiology Diagnostic Radiology | DX: N20.0 Calculus of kidney (principal) | CPT/HCPCS: 76775 ==

== ENCOUNTER 2025-04-07 14:09 | Outpatient (REF) | payer OTHER, SELFPAY ==
--- OUTSIDE RECORDS SUMMARY | 2025-04-07 14:52 | XMS_ITS | Encounter Summary ---
Author Organization [employer] Address [address] [facility] 7t [place] [address] Care Team Providers Care Water Quality Analyst Name Role Phone Marisabel Michel MD Primary Care Provider [phone] Encounter Details Date Type Department Care Team ([facility] st Contact Info) Description 06/30/2024 Orders Only [facility] [address] [place], [place] [phone] Marisabel Michel MD [address] [place] [address] Prediabetes (Primary Dx); Primary hypertension; Acute right [...] 1:45 PM EDT Office Visit [facility] [address] [place], [place] [phone] Marisabel Michel MD [address] [place], [place] [phone] documented as of this encounter Procedures Procedure [...] PM EDT) Hemoglobin A1c 6.1(H) <6.0 % [facility] Comment:Hemoglobin A1C Refer ence Range Adults: 4.8 - 6.0 % Non diabetic: < 6.0 % Goal: < 7.0 %Additional Action Suggested: > 8.0 %Note: Hemoglobin A1c results are invalid for patients with abnormal amounts of HbF. Blood transfusions may impact the HbA1c concentration in the patient sample. Estimated Average Glucose 128 mg/dL [facility] Comment:eAG = Estimated ave rage glucose which is %A1C expressed asaverage glucose, using the formula of the P5U-JhmhxyeQwaeuqa Glucose study (ADAG), Diabetes Care, Vol.31,#8,Jun. 2007 Blood Venous blood specimen / Unknown 08/02/2024 5:05 PM EDT 08/02/2024 5:10 PM EDT us Marisabel Michel MD LAB BLOOD ORDERABLES Final Resul t Performing Organization Address City/[facility]/ZIP Co de Phone Number [facility] [address] [place] [phone] * (ABNORMAL) TSH with Reflex to Free T4 (07/15/2024 3:24 PM EDT) TSH reflex Free T4 0.19(L) 0.32 - 4.0 uIU/mL [facility] Blood 07/15/2024 3:24 PM EDT 07/15/2024 3:26 PM EDT us Marisabel Michel MD LAB BLOOD ORDERABLES Final Resul t [facility] [address] [place] [phone] * (ABNORMAL) Sed Rate by Modified Westergren (07/15/2024 3:24 PM EDT) Erythrocyte Sedimentation Rate 71(H) 0 - 20 MM/HR [facility] Comment:Patients with polycy themia and many hemoglobin abnormalitiesmay have depressed sed rates whereas patients with anemiamay have elevated sed rates. Blood Venous blood specimen / Unknown 07/15/2024 3:24 PM EDT 07/15/2024 3:26 PM EDT Marisabel Michel MD LAB BLOOD ORDERABLES Final Resul t Performing Organization Address [facility] Co de Phone Number [facility] [address] [place] [phone] * (ABNORMAL) C-reactive Protein (07/15/2024 3:24 PM EDT) C Reactive Protein 18.68(H) < or = 0.50 mg/dL [facility] Blood Venous blood specimen / Unknown 07/15/2024 3:24 PM EDT 07/15/2024 3:26 PM EDT Marisabel Michel MD LAB BLOOD ORDERABLES Final Resul t Performing Organization Address [facility] de Phone Number [facility] [address] [place] [phone] * Uric acid (07/15/2024 3:24 PM EDT) Uric Acid 4.8 2.4 - 5.7 mg/dL [facility] Blood Venous blood specimen / Unknown 07/15/2024 3:24 PM EDT 07/15/2024 3:26 PM EDT Marisabel Michel MD LAB BLOOD ORDERABLES Final Resul t Performing Organization Address [facility] Co de Phone Number [facility] [address] [place] [phone] * (ABNORMAL) Comprehensive Metabolic Panel (07/15/2024 3:24 PM EDT) Sodium 141 135 - 145 mmol/L [facility] Potassium 3.5 3.3 - 5.1 mmol/L [facility] Chloride 105 96 - 108 mmol/L [facility] Carbon Dioxide 20(L) 22 - 29 mmol/L [facility] Anion Gap 20 12 - 20 [facility] Urea Nitrogen (BUN) 13 9 - 16 mg/dL [facility] Creatinine, Serum 0.81 0.5 - 1.4 mg/dL [facility] Estimated Glomerular Filt Rate >60 [facility] Comment:NOTE: For -Am erican individuals, multiply the result by 1.210.Chronic Kidney Disease: Estimated GFR < 60 mL/min/1.63v6Ntjpkh Kidney Disease: Estimated GFR < 15 mL/min/1.73m2 Glucose 91 60 - 115 mg/dL [facility] Calcium 10.5(H) 8.4 - 10.2 mg/dL [facility] Bilirubin, Total 0.4 0.0 - 1.0 mg/dL [facility] Aspartate Amino Transferase 17 5 - 31 U/L [facility] Alanine Aminotransferase 18 0 - 31 U/L [facility] Total Protein 8.5(H) 6.5 - 8.0 g/dL [facility] Albumin Level 4.3 3.5 - 5.0 g/dL [facility] Alkaline Phosphatase 87 39 - 117 U/L [facility] Blood Venous blood specimen / Unknown 07/15/2024 3:24 PM EDT 07/15/2024 3:26 PM EDT us Marisabel Michel MD LAB BLOOD ORDERABLES Final Resul t [facility] [address] [place] [phone] * (ABNORMAL) CBC auto differential (07/15/2024 3:24 PM EDT) White Blood Count 8.9 4.8 - 10.8 X10*3/uL [facility] Red Blood Count 4.49 4.20 - 5.50 X10*6/uL [facility] Hemoglobin 12.9 12.0 - 16.0 g/dl [facility] Hematocrit 39.1 37.0 - 47.0 % [facility] Mean Corpuscular Volume 87.1 80.0 - 98.0 fL [facility] Mean Corpuscular Hemoglobin 28.7 27.0 - 33.0 pg [facility] Mean Corpuscular HGB Conc 33.0 31.0 - 35.0 g/dl [facility] Red Cell Distribution Width 13.7 11.0 - 16.0 % [facility] Platelet Count 223 160 - 400 X10*3/uL [facility] Mean Platelet Volume 13.1(H) 9.4 - 12.3 fL [facility] Neutrophils Percent Auto 68.4 45 - 73 % [facility] Imm Gran Pct Auto 0.6(H) 0.0 - 0.4 % [facility] Lymphocytes Percent Auto 17.3(L) 20 - 40 % [facility] Monocytes Percent Auto 10.3 2 - 11 % [facility] Eosinophils Percent Auto 3.1 0 - 4 % [facility] Basophils Percent Auto 0.3 0 - 2 % [facility] NRBC Pct Auto 0.0 0.0 - 0.2 /100WBC [facility] Neutrophils Absolute Auto 6.1 2.0 - 8.3 x10*3/uL [facility] Imm Gran Abs Auto 0.05(H) 0.00 - 0.03 X10*3/uL [facility] Lymphocytes Absolute Auto 1.6 1.2 - 4.9 X10*3/uL [facility] Monocytes Absolute Auto 0.9 0.1 - 1.2 X10*3/uL [facility] Eosinophils Absolute Auto 0.3 0.0 - 0.4 X10*3/uL [facility] Basophils Absolute Auto 0.0 0.0 - 0.2 X10*3/uL [facility] NRBC Abs Auto 0.000 0.0 - 0.012 X10*3/uL [facility] Blood Venous blood specimen / Unknown 07/15/2024 3:24 PM EDT 07/15/2024 3:26 PM EDT us Marisabel Michel MD LAB BLOOD ORDERABLES Edited Resu lt - Final [facility] [address] [place] [address] [phone] * VASC Lower Extremity Venous Duplex Bilateral (07/15/2024 2:00 PM EDT) 07/15/2024 2:00 PM EDT Narrative [facility] - 07/15/2024 2:49 PM EDT ? [facility] ?[address] ?[place] [address] ? Ultrasound Report ? Signed ? Patient: Radha Kimball ?MR#: ?? [id number] ? : 1970 ?Acct:[id number] ? Age/Sex: 53 / F ?ADM Date: 07/15/24 ? Loc: HO.US ? Attending Dr: Sebastian Matta MD ? Ordering Physician: Sebastian Matta MD ?? Date of Service: 07/15/24 ?? Procedure(s): US venous duplex LE BI ?? Accession Number(s): [id number] ? cc: Sebastian Matta MD; Marisabel Michel [...] DD/ 1400 ? TD/TT: 07/15/24 1420 ? Scada Operator: ? Procedure Note Donthiago, Image - 07/15/2024 [place] [address] Ultrasound Report Signed Patient: Radha Kimball#: [id number] : 1970Acct:[id number] Age/Sex: 53 / FADM Date: 07/15/24 Loc: HO.US Attending Dr: Sebastian Matta MD Ordering Physician: Sebastian Matta MD Date of Service: 07/15/24 Procedure(s): US venous duplex LE BI Accession Number(s): [id number] cc: Sebastian Matta MD; Marisabel Michel MD [...] 07/15/24 1445 DD/ 1400 TD/TT: 07/15/24 1420 Scada Operator: [facility] External Provider CV VASC ULAR PROCEDURES Final Result Performing Organization Address City/State/[facility] Co de Phone Number [facility] [address] [place] [phone] documented in this encounter Visit Diagnoses Diagnosis Prediabetes- Primary Other abnormal glucose Primary hypertension Unspecified essential hypertension Acute right ankle pain Fever, unspecified fever cause documented in this encounter Additional Health Concerns Assessment Noted Time PHQ-9 Depression Total Score: 0 03/29/20 24 3:23 PM EDT documented as of this encounter Care Teams Water Quality Analyst Relationship Specialty Start Date End Date Marisabel Michel MD [address] [place] [address] PCP - General Family Medicine 09/04/11 documented as of this encounter
--- OUTSIDE RECORDS SUMMARY | 2025-04-07 14:52 | XMS_ITS | Encounter Summary ---
Author Organization [employer] Address [address] [facility] 7t [place] [address] Care Team Providers Care Accounting Instructor Name Role Phone Marisabel Michel MD Primary Care Provider [phone] Reason for Referral * Consultation (Routine) - Authorized Specialty Diagnoses / Procedures Referred By Contcarlos t Referred To Contact Pharmacy Diagnoses Moderate persistent asthma without complication Prediabetes Primary hypertension Polypharmacy Marisabel Michel MD [address] [place] [address] Phone: tel: fax: Referral ID Status Reason Start Date Expiration Date Visits Requested Visits Authorized [id number] Authorized Continuity of Care 09/09/2024 09/09/2025 6 6 Encounter Details Date Type Department Care Team ([facility] st Contact Info) Description 09/09/2024 Orders Only [facility] [address] [place] [address] [phone] Marisabel Michel MD [address] [place] [address] [phone] Moderate persistent asthma without complication (Primary Dx); [...] 1:45 PM EDT Office Visit [facility] [address] [place] [phone] Marisabel Michel MD [address] [place] [address] Scheduled Referrals Name Type Priority Associated Diagnoses [...] documented as of this encounter Care Teams Accounting Instructor Relationship Specialty Start Date End Date Marisabel Michel MD [address] [place] [phone] PCP - General Family Medicine 09/04/11 documented as of this encounter
--- OUTSIDE RECORDS SUMMARY | 2025-04-07 14:52 | XMS_ITS | Encounter Summary ---
Author Organization [employer] Address [address] [facility] [address] 7t [place] [address] Care Team Providers Care Machine Captain Name Role Phone Marisabel Michel MD Primary Care Provider [phone] Reason for Visit * Reason Comments Med Refill Encounter Details Date Type Department Care Team ([facility] st Contact Info) Description 10/08/2023 Refill [facility] [address] [place], [place] [phone] Angela Kirkland DO [address] [place], [place] [phone] Osteopenia, unspecified location Social History Tobacco Use [...] the past 12 months, has t he [employer] oil or [employer] company threatened to shut [...] Description 06/05/2025 1:45 PM EDT Office Visit [facility] [address] [place] [address] Marisabel Michel MD [address] [place] [address] documented as of this encounter Visit Diagnoses Diagnosis Osteopenia, unspecified location documented in this encounter Additional Health Concerns Assessment Noted Time PHQ-9 Depression Total Score: 2 02/25/20 23 1:12 PM EDT documented as of this encounter Care Teams Machine Captain Relationship Specialty Start Date End Date Marisabel Michel MD [address] [place] [address] PCP - General Family Medicine 09/04/11 documented as of this encounter
--- OUTSIDE RECORDS SUMMARY | 2025-04-07 14:52 | XMS_ITS | Encounter Summary ---
Author Organization [employer] Address [address] [facility] [address] 7[address] [place] [address] Care Team Providers Care Registered Route Associate Name Role Phone Marisabel Michel MD Primary Care Provider [phone] Encounter Details Date Type Department Care Team ([facility] st Contact Info) Description 09/29/2024 Orders Only [facility] [address] [place], [place] [phone] Marisabel Michel MD [address] [place] [address] Social History Tobacco Use Types Packs/Day Years [...] Description 06/05/2025 1:45 PM EDT Office Visit [facility] [address] [place] [address] Marisabel Michel MD [address] [place] [address] documented as of this encounter Visit Diagnoses Not on filedocumented in this encounter Additional Health Concerns Assessment Noted Time PHQ-9 Depression Total Score: 0 03/29/20 24 3:23 PM EDT documented as of this encounter Care Teams Registered Route Associate Relationship Specialty Start Date End Date Marisbael Michel MD [address] [place] [address] PCP - General Family Medicine 09/04/11 documented as of this encounter
--- OUTSIDE RECORDS SUMMARY | 2025-04-07 14:52 | XMS_ITS | Encounter Summary ---
Author Organization [employer] Address [address] [facility] [address] [place] [address] Care Team Providers Care Cordwood Cutter Helper Name Role Phone Marisabel Michel MD Primary Care Provider [phone] Encounter Details Date Type Department Care Team (Late st Contact Info) Description 08/05/2024 Orders Only [facility] [address] [place], [place] [phone] Marisabel Michel MD 230 [place] [address] Acute right ankle pain (Primary Dx); Cellulitis [...] Description 06/05/2025 1:45 PM EDT Office Visit [facility] 230 [place], [place] [phone] Marisabel Michel MD [address] [place] [address] Scheduled Orders Name Type Priority [...] Sedimentation Rate 56(H) 0 - 20 MM/HR [facility] Comment:Patients with polycy themia and many hemoglobin abnormalitiesmay have depressed sed rates whereas patients with anemiamay have elevated sed rates. Blood Venous blood specimen / Unknown 08/30/2024 4:50 PM EDT 08/30/2024 5:01 PM EDT us Marisabel Michel MD LAB BLOOD ORDERABLES Final Resul t [facility] [address] [place] [phone] * (ABNORMAL) Basic Metabolic Panel (08/30/2024 4:50 PM EDT) Sodium 140 135 - 145 mmol/L [facility] Potassium 3.6 3.3 - 5.1 mmol/L [facility] Chloride 104 96 - 108 mmol/L [facility] Carbon Dioxide 25 22 - 29 mmol/L [facility] Anion Gap 15 12 - 20 [facility] Urea Nitrogen (BUN) 16 9 - 16 mg/dL [facility] Creatinine, Serum 0.77 0.5 - 1.4 mg/dL [facility] Estimated Glomerular Filt Rate >60 [facility] Comment:NOTE: For -Am erican individuals, multiply the result by 1.210.Chronic Kidney Disease: Estimated GFR < 60 mL/min/1.07x1Mievff Kidney Disease: Estimated GFR < 15 mL/min/1.73m2 Glucose 93 60 - 115 mg/dL [facility] Calcium 10.3(H) 8.4 - 10.2 mg/dL [facility] Blood Venous blood specimen / Unknown 08/30/2024 4:50 PM EDT 08/30/2024 5:01 PM EDT Marisabel Michel MD LAB BLOOD ORDERABLES Final Resul t Performing Organization Address City/[facility] Co de Phone Number [facility] [address] [place] [phone] * Magnesium (08/30/2024 4:50 PM EDT) Magnesium 2.3 1.6 - 2.6 mg/dL [facility] Blood Venous blood specimen / Unknown 08/30/2024 4:50 PM EDT 08/30/2024 5:01 PM EDT Marisabel Michel MD LAB BLOOD ORDERABLES Final Resul t Performing Organization Address [facility] de Phone Number [facility] [address] [place] [phone] * (ABNORMAL) Reticulocyte Count (08/30/2024 4:50 PM EDT) Reticulocytes Absolute 0.095 0.026 - 0.095 X10*6/uL [facility] Immature Retic Fraction 8.3 3.0 - 15.9 % [facility] Retic HGB Equivalent 31.7 30.0 - 35.0 pg [facility] Reticulocyte Percent 2.1(H) 0.5 - 1.8 % [facility] Blood Venous blood specimen / Unknown 08/30/2024 4:50 PM EDT 08/30/2024 5:01 PM EDT Marisabel Michel MD LAB BLOOD ORDERABLES Final Resul t Performing Organization Address [facility]/ZIP Co de Phone Number [facility] [address] [place] [phone] * (ABNORMAL) Iron And Total Iron Binding Capacity (08/30/2024 4:50 PM EDT) Iron 38 30 - 160 mcg/dL [facility] Total Iron Binding Capacity 206(L) 228 - 428 mcg/dL [facility] Percent Iron Saturation 18 15 - 50 % [facility] Unsaturated Iron Binding 168 ug/dL [facility] Blood Venous blood specimen / Unknown 08/30/2024 4:50 PM EDT 08/30/2024 5:01 PM EDT Marisabel Michel MD LAB BLOOD ORDERABLES Final Resul t Performing Organization Address [facility] de Phone Number [facility] [address] [place] [phone] * (ABNORMAL) Ferritin (08/30/2024 4:50 PM EDT) Ferritin 283(H) 10 - 250 ng/mL [facility] Blood Venous blood specimen / Unknown 08/30/2024 4:50 PM EDT 08/30/2024 5:01 PM EDT Marisabel Michel MD LAB BLOOD ORDERABLES Final Resul t Performing Organization Address [facility] Co de Phone Number [facility] [address] [place] [phone] * (ABNORMAL) C-reactive Protein (08/30/2024 4:50 PM EDT) C Reactive Protein 1.83(H) < or = 0.50 mg/dL [facility] Blood Venous blood specimen / Unknown 08/30/2024 4:50 PM EDT 08/30/2024 5:01 PM EDT us Marisabel Michel MD LAB BLOOD ORDERABLES Final Resul t [facility] [address] [place], [place] [phone] * (ABNORMAL) CBC auto differential (08/30/2024 4:50 PM EDT) White Blood Count 9.6 4.8 - 10.8 X10*3/uL [facility] Red Blood Count 4.49 4.20 - 5.50 X10*6/uL [facility] Hemoglobin 12.8 12.0 - 16.0 g/dl [facility] Hematocrit 39.2 37.0 - 47.0 % [facility] Mean Corpuscular Volume 87.3 80.0 - 98.0 fL [facility] Mean Corpuscular Hemoglobin 28.5 27.0 - 33.0 pg [facility] Mean Corpuscular HGB Conc 32.7 31.0 - 35.0 g/dl [facility] Red Cell Distribution Width 13.5 11.0 - 16.0 % [facility] Platelet Count 248 160 - 400 X10*3/uL [facility] Mean Platelet Volume 11.9 9.4 - 12.3 fL [facility] Neutrophils Percent Auto 70.8 45 - 73 % [facility] Imm Gran Pct Auto 0.8(H) 0.0 - 0.4 % [facility] Lymphocytes Percent Auto 17.2(L) 20 - 40 % [facility] Monocytes Percent Auto 6.7 2 - 11 % [facility] Eosinophils Percent Auto 4.0 0 - 4 % [facility] Basophils Percent Auto 0.5 0 - 2 % [facility] NRBC Pct Auto 0.0 0.0 - 0.2 /100WBC [facility] Neutrophils Absolute Auto 6.8 2.0 - 8.3 x10*3/uL [facility] Imm Gran Abs Auto 0.08(H) 0.00 - 0.03 X10*3/uL [facility] Lymphocytes Absolute Auto 1.7 1.2 - 4.9 X10*3/uL [facility] Monocytes Absolute Auto 0.6 0.1 - 1.2 X10*3/uL [facility] Eosinophils Absolute Auto 0.4 0.0 - 0.4 X10*3/uL [facility] Basophils Absolute Auto 0.1 0.0 - 0.2 X10*3/uL [facility] NRBC Abs Auto 0.000 0.0 - 0.012 X10*3/uL [facility] Blood Venous blood specimen / Unknown 08/30/2024 4:50 PM EDT 08/30/2024 5:01 PM EDT us Marisabel Michel MD LAB BLOOD ORDERABLES Final Resul t [facility] [address] [place] [phone] documented in this encounter Visit Diagnoses Diagnosis Acute right ankle pain- Primary Cellulitis of right lower leg Anemia, unspecified type Hypokalemia Hypopotassemia documented in this encounter Additional Health Concerns Assessment Noted Time PHQ-9 Depression Total Score: 0 03/29/20 24 3:23 PM EDT documented as of this encounter Care Teams Cordwood Cutter Helper Relationship Specialty Start Date End Date Marisabel Michel MD [address] [place] [phone] PCP - General Family Medicine 09/04/11 documented as of this encounter
--- OUTSIDE RECORDS SUMMARY | 2025-04-07 14:52 | XMS_ITS | Encounter Summary ---
Author Organization [employer] Address [address] [facility] [address] [place] [address] Care Team Providers Care Fish Cake Maker Name Role Phone Marisabel Michel MD Primary Care Provider [phone] Encounter Details Date Type Department Care Team ([facility] st Contact Info) Description 03/18/2024 Orders Only [facility] [address] [place], [place] [phone] Marisabel Michel MD 230 [place], [place] [phone] Social History Tobacco Use Types Packs/Day Years [...] Description 06/05/2025 1:45 PM EDT Office Visit [facility] [address] [place] [address] Marisabel Michel MD [address] [facility] [place] [address] documented as of this encounter Procedures Procedure Name Priority Date/Time Associated Diagnosis Comments BI MAMMOGRAM SCREENING TOMOSYNTHESIS BILATERAL Routine 03/21/2024 1:10 PM EDT documented in this encounter Results * BI Mammogram Screening Tomosynthesis Bilateral (03/21/2024 1:10 PM EDT) Anatomical Region Laterality Modality Breast Bilateral Mammography 03/21/2024 1:10 PM EDT Narrative 04/17/2024 6:32 AM EDT ? [facility] ? [address] ?[place] [address] ? Mammography Report ? Signed ? Patient: Chuy Vera,Radha ?MR#: ?? [id number] ? : 1970 ?Acct:[id number] ? Age/Sex: 53 / F ?ADM Date: 04/29/24 ? Loc: HO.MAMMO ? Attending Dr: Marisabel Michel MD ? Ordering Physician: Marisabel Michel MD ?Results: 1Negative ? Date of Service: 03/21/24 ?Follow Up: 1 Year From Orig ?? inal Mammogram ? Procedure(s): MM tomosynthesis screening BI ?? Accession Number(s): [id number] ? cc: Marisabel Michel MD ? EXAMINATION: [...] ? DD/DT: //24 1310 ? TD/TT: ? Supervisor [employer] Yard: ? Procedure Note Donotuseinterpreter, Image - [facility]/17/2024 [facility] [address] [place] [address] Mammography Report Signed Patient: Radha KimballMR#: [id number] : 1970Acct:[id number] Age/Sex: 53 / FADM Date: 03/21/24 Loc: HO.MAMMO Attending Dr: Marisabel Michel MD Ordering Physician: Marisabel Michel MDResults: 1Negative Date of Service: 03/21/24Follow Up: 1 Year From Orig inal Mammogram Procedure(s): MM tomosynthesis screening BI Accession Number(s): [id number] cc: Marisabel Michel MD EXAMINATION: MM SCREENING [...] in OV> 04/17/24 0629 DD/ 1310 TD/TT: Supervisor [employer] Yard: us Marisabel Michel MD IMG BI PROCEDURES Final Result documented in this encounter Visit Diagnoses Not on filedocumented in this encounter Additional Health Concerns Assessment Noted Time PHQ-9 Depression Total Score: 2 02/25/20 23 1:12 PM EDT documented as of this encounter Care Teams Fish Cake Maker Relationship Specialty Start Date End Date Marisabel Michel MD [address] [place] [phone] PCP - General Family Medicine 09/04/11 documented as of this encounter
--- OUTSIDE RECORDS SUMMARY | 2025-04-07 14:52 | XMS_ITS | Encounter Summary ---
Author Organization [employer] Address 75 [facility] 7t [place] [address] Care Team Providers Care Inhalation Therapy Aide Name Role Phone Marisabel Michel MD Primary Care Provider [phone] Reason for Referral * Imaging (Urgent) - Closed Specialty Diagnoses / Procedures Referred By Contac t Referred To Contact Radiology Diagnoses Acute pain of right knee Procedures MR Knee w/o Contrast Right Marisabel Michel MD 230 [place] [address] Phone: tel: fax: [facility] [address] [place] [address] Phone: tel: fax: Referral ID Status Reason Start Date Expiration Date Visits Re quested Visits Authorized [id number] Closed 05/18/2024 05/18/2025 1 1 Encounter Details Date Type Department Care Team (Late st Contact Info) Description 05/18/2024 Orders Only [facility] 230 [place], [place] [phone] Marisabel Michel MD 230 [place] [address] Acute pain of right knee [...] Office Visit [facility] [address] [place] [address] Marisabel Michel MD 230 [place] [address] documented as of this encounter Procedures Procedure Name Priority Date/Time Associated Diagnosis Comments MR KNEE WO CONTRAST RIGHT Urgent 05/25/2024 3:33 PM EDT Acute pain of right knee documented in this encounter Results * MR Knee w/o Contrast Right (05/25/2024 3:33 PM EDT) Anatomical Region Laterality Modality Magnetic Resonan ce 05/25/2024 3:33 PM EDT Narrative 05/25/2024 4:16 PM EDT ? [facility] ?[address] ?[place] [address] ? Magnetic Resonance Report ? Signed ? Patient: Radha Kimball ?MR#: ?? [id number] ? : 1970 ?Acct:[id number] ? Age/Sex: 53 / F ?ADM Date: 05/25/24 ? Loc: HO.MRI ? Attending Dr: Marisabel Michel MD ? Ordering Physician: Marisabel Michel MD ?? Date of Service: 05/25/24 ?? Procedure(s): MR knee RT wo con ?? Accession Number(s): [id number] ? cc: Marisabel Michel MD ? EXAMINATION: [...] 05/25/243 ? DD/ 1533 ? TD/TT: ? Lcac Operator: DM ? Procedure Note Clarence, Sana - 05/25/2024 [place] [address] Magnetic Resonance Report Signed Patient: Radha Kimball#: [id number] : 1970Acct:[id number] Age/Sex: 53 / FADM Date: 05/25/24 Loc: HO.MRI Attending Dr: Marisabel Michel MD Ordering Physician: Marisabel Michel MD Date of Service: 05/25/24 Procedure(s): MR knee RT wo con Accession Number(s): [id number] cc: Marisabel Michel MD EXAMINATION: MR KNEE [...] MD inOV> 05/25/24 1613 DD/ 1533 TD/TT: Lcac Operator: SANDHYA us Marisabel Michel MD IMG MRI PROCEDURES Final Result documented in this encounter Visit Diagnoses Diagnosis Acute pain of right knee- Primary Primary hypertension Unspecified essential hypertension documented in this encounter Additional Health Concerns Assessment Noted Time PHQ-9 Depression Total Score: 0 03/29/20 24 3:23 PM EDT documented as of this encounter Care Teams Inhalation Therapy Aide Relationship Specialty Start Date End Date Marisabel Michel MD [address] [place] [phone] PCP - General Family Medicine 09/04/11 documented as of this encounter
--- OUTSIDE RECORDS SUMMARY | 2025-04-07 14:52 | XMS_ITS | Encounter Summary ---
Author Organization [employer] Address 75 [facility] 7t [place] [address] Care Team Providers Care Engine Pilot Name Role Phone Marisabel Michel MD Primary Care Provider [phone] Reason for Referral * Consultation (Routine) - Closed Specialty Diagnoses / Procedures Referred By Vee carter Referred To Contact Diagnoses Sinusitis, unspecified chronicity, unspecified location Marisabel Michel MD [address] [place] [address] Phone: tel: fax: Jamshid Aly [address] [place] [address] Drive [address] [place], [place] [address] Phone: tel: fax: Referral ID Status Reason Start Date Expiration Date V isits Requested Visits Authorized [id number] Closed Specialty Services Required 04/22/2024 04/22/2025 1 1 Encounter Details Date Type Department Care Team (Late st Contact Info) Description 04/22/2024 Orders Only [facility] 230 [place], [place] [phone] Marisabel Michel MD [address] [place], [place] [phone] Sinusitis, unspecified chronicity, unspecified location (Primary Dx) [...] 06/05/2025 1:45 PM EDT Office Visit [facility] 230 [place] [address] Marisabel Michel MD 230 [place] [address] Scheduled Referrals Name Type Priority Associated Diagnoses [...] EDT Narrative 05/10/2024 5:32 PM EDT ? [facility] ?[address] ?[place] [address] ? Ultrasound Report ? Signed ? Patient: Radha Kimball ?MR#: ?? [id number] ? : 1970 ?Acct:[id number] ? Age/Sex: 53 / F ?ADM Date: 05/10/24 ? Loc: HO.XRAY ? Attending Dr: Marisabel Michel MD ? Ordering Physician: Marisabel Michel MD ?? Date of Service: 05/10/24 ?? Procedure(s): US venous duplex LE RT ?? Accession Number(s): [id number] ? cc: Marisabel Michel MD ? EXAMINATION: [...] 1728 ? DD/ 1648 ? TD/TT: ? Energy Efficiency Finance Manager: BA ? Procedure Note Donotuseinterpreter, Image - 05/10/[address] [address] Ultrasound Report Signed Patient: Radha KimballMR#: [id number] : 1970Acct:[id number] Age/Sex: 53 / FADM Date: 05/10/24 Loc: HO.[place] Attending Dr: Marisabel Michel MD Ordering Physician: Marisabel Michel MD Date of Service: 05/10/24 Procedure(s): US venous duplex LE RT Accession Number(s): [id number] cc: Marisabel Michel MD EXAMINATION: US VENOUS [...] in OV> 05/10/24 1728 DD/ 1648 TD/TT: Energy Efficiency Finance Manager: JUANITA Marisabel Michel MD IMG US PROCEDURES Final Result documented in this encounter Visit Diagnoses Diagnosis Sinusitis, unspecified chronicity, unspecified location- Primary documented in this encounter Additional Health Concerns Assessment Noted Time PHQ-9 Depression Total Score: 0 03/29/20 24 3:23 PM EDT documented as of this encounter Care Teams Engine Pilot Relationship Specialty Start Date End Date Marisabel Michel MD 230 [place] [address] PCP - General Family Medicine 09/04/11 documented as of this encounter
--- OUTSIDE RECORDS SUMMARY | 2025-04-07 14:52 | XMS_ITS | Encounter Summary ---
Author Organization [employer] Address [address] [facility] [address] 7t [place] [address] Care Team Providers Care Associate Vice President Name Role Phone Marisabel Michel MD Primary Care Provider [phone] Encounter Details Date Type Department Care Team ([facility] st Contact Info) Description 08/23/2024 Orders Only [facility] 230 [place], [place] [phone] Marisabel Michel MD 230 [place], [place] [phone] Social History Tobacco Use Types Packs/Day Years [...] 1:45 PM EDT Office Visit [facility] [address] [place] [phone] Marisabel Michel MD [address] [place] [address] documented as of this encounter Visit Diagnoses Not on filedocumented in this encounter Additional Health Concerns Assessment Noted Time PHQ-9 Depression Total Score: 0 03/29/20 24 3:23 PM EDT documented as of this encounter Care Teams Associate Vice President Relationship Specialty Start Date End Date Marisabel Michel MD [address] [place] [phone] PCP - General Family Medicine 09/04/11 documented as of this encounter
--- OUTSIDE RECORDS SUMMARY | 2025-04-07 14:52 | XMS_ITS | Encounter Summary ---
Author Organization [employer] Address [address] [facility] 7t [place] [address] Care Team Providers Care Cool Roofing Installer Name Role Phone Marisabel Michel MD Primary Care Provider [phone] Reason for Referral * Consultation (Urgent) - Closed Specialty Diagnoses / Procedures Referred By Contac t Referred To Contact Diagnoses Cellulitis of right lower leg Pain in right lower leg Marisabel Michel MD [address] [place] [address] Phone: tel: fax: Ester Palm MD [address] [facility] [address] [place] [address] Phone: tel: Referral ID Status Reason Start Date Expiration Date V isits Requested Visits Authorized [id number] Closed Specialty Services Required 08/29/2024 08/29/2025 1 1 Encounter Details Date Type Department Care Team (Late st Contact Info) Description 08/29/2024 Orders Only [facility] [place] [facility] [address] [place] [phone] Marisabel Michel MD [address] [place], [place] [phone] Cellulitis of right lower leg (Primary Dx); [...] Description 06/05/2025 1:45 PM EDT Office Visit [facility] [place] [facility] 230 [place] [address] Marisabel Michel MD [address] [place] [address] Scheduled Referrals Name Type Priority Associated Diagnoses [...] documented as of this encounter Care Teams Cool Roofing Installer Relationship Specialty Start Date End Date Marisabel Michel MD [address] [place] [address] PCP - General Family Medicine 09/04/11 documented as of this encounter
--- OUTSIDE RECORDS SUMMARY | 2025-04-07 14:52 | XMS_ITS | Encounter Summary ---
Author Organization [employer] Address [address] [facility] [address] 7[address] [place] [address] Care Team Providers Care Biomedical Electronics Technician Name Role Phone Marisabel Michel MD Primary Care Provider [phone] Encounter Details Date Type Department Care Team (Late st Contact Info) Description 12/02/2022 Orders Only [facility] [address] [place] [address] [phone] Marisabel Michel MD [address] [place] [address] [phone] Moderate persistent asthma without complication (Primary Dx); [...] Description 06/05/2025 1:45 PM EDT Office Visit [facility] [address] [place] [address] [phone] Marisabel Michel MD [address] [place], [place] [phone] documented as of this encounter Visit Diagnoses Diagnosis Moderate persistent asthma without complication- Primary Allergic rhinitis due to other allergic trigger, unspecified seasonality Intrinsic atopic dermatitis documented in this encounter Care Teams Biomedical Electronics Technician Relationship Specialty Start Date End Date Marisabel Michel MD [address] [place] [address] [phone] PCP - General Family Medicine 09/04/11 documented as of this encounter
--- OUTSIDE RECORDS SUMMARY | 2025-04-07 14:52 | XMS_ITS | Encounter Summary ---
Author Organization [employer] Address [address] [facility] 7t [place] [address] Care Team Providers Care Skein Drier Name Role Phone Marisabel Michel MD Primary Care Provider [phone] Encounter Details Date Type Department Care Team ([facility] st Contact Info) Description 10/04/2024 Orders Only [facility] 230 [place] [address] Lexie Lopez, PharmD [address] [place] [address] Social History Tobacco Use Types Packs/Day Years [...] Description 06/05/2025 1:45 PM EDT Office Visit [facility]INE [address] [place] [address] Marisabel Michel MD [address] [place] [address] documented as of this encounter Visit Diagnoses Not on filedocumented in this encounter Additional Health Concerns Assessment Noted Time PHQ-9 Depression Total Score: 0 03/29/20 24 3:23 PM EDT documented as of this encounter Care Teams Skein Drier Relationship Specialty Start Date End Date Marisabel Michel MD [address] [place] [phone] PCP - General Family Medicine 09/04/11 documented as of this encounter
--- OUTSIDE RECORDS SUMMARY | 2025-04-07 14:52 | XMS_ITS | Encounter Summary ---
Author Organization [employer] Address [address] [facility] [address] [place] [address] Care Team Providers Care Quartz Miner Blasting Name Role Phone Marisabel Michel MD Primary Care Provider [phone] Encounter Details Date Type Department Care Team ([facility] st Contact Info) Description 09/08/2024 Orders Only [facility] 230 [place], [place] [phone] Marisabel Michel MD [address] [place], [place] [phone] Social History Tobacco Use Types Packs/Day Years [...] 06/05/2025 1:45 PM EDT Office Visit [facility] [address] [place] [phone] Marisabel Michel MD [address] [place] [address] documented as of this encounter Visit Diagnoses Not on filedocumented in this encounter Additional Health Concerns Assessment Noted Time PHQ-9 Depression Total Score: 0 03/29/20 24 3:23 PM EDT documented as of this encounter Care Teams Quartz Miner Blasting Relationship Specialty Start Date End Date Marisabel Michel MD [address] [place] [phone] PCP - General Family Medicine 09/04/11 documented as of this encounter
--- OUTSIDE RECORDS SUMMARY | 2025-04-07 14:52 | XMS_ITS | Encounter Summary ---
Author Organization [employer] Address [address] [facility] 7t [place] [address] Care Team Providers Care Acid Correction Hand Name Role Phone Marisabel Michel MD Primary Care Provider [phone] Reason for Referral * Imaging (Urgent) - Canceled Specialty Diagnoses / Procedures Referred By Vee t Referred To Contact Radiology Diagnoses Elevated erythrocyte sedimentation rate Acute right ankle pain Cellulitis of right leg Procedures MR Ankle w/ and w/o Contrast Right Marisabel Michel MD [address] [place] [address] Phone: tel: fax: [address] Phone: tel: fax: Referral ID Status Reason Start Date Expiration Date V isits Requested Visits Authorized [id number] Canceled 07/19/2024 07/19/2025 1 1 * Imaging (Urgent) - New Request Specialty Diagnoses / Procedures Referred By Contac t Referred To Contact Radiology Diagnoses Elevated erythrocyte sedimentation rate Acute right ankle pain Cellulitis of right leg Procedures MRI LOWER LEG / TIBIA FIBULA RIGHT W WO CONTRAST Marisabel Michel MD [address] [place] [address] Phone: tel: fax: [address] Phone: tel: fax: Referral ID Status Reason Start Date Expiration Date V isits Requested Visits Authorized [id number] New Request 07/19/2024 07/19/2025 1 1 Encounter Details Date Type Department Care Team (Late st Contact Info) Description 07/15/2024 Orders Only [facility] [address] [place] [address] Marisabel Michel MD [address] [place] [address] Elevated erythrocyte sedimentation rate (Primary Dx); Cellulitis [...] Description 06/05/2025 1:45 PM EDT Office Visit [facility] [address] [place] [address] Marisabel Michel MD [address] [place] [address] Scheduled Orders Name Type Priority Associated Diagnoses [...] Vitamin D 25-OH Total 54.6 >30 ng/mL [facility] Comment:Health Based Referen ce Values*< 20 ng/mL Zdcmvvsil34-14 ng/mL Insufficient> 30 ng/mL Sufficient*Ashok SMITH. N [...] City/[facility]/ZIP Co de Phone Number [facility] [address] [place] [phone] * (ABNORMAL) PTH, Intact Without Calcium (08/02/2024 5:05 PM EDT) Parathyroid Hormone, Intact 78.5(H) 8.7 - 77.1 pg/mL [facility] Blood Venous blood specimen / Unknown 08/02/2024 5:05 PM EDT 08/02/2024 5:10 PM EDT Marisabel Michel MD LAB BLOOD ORDERABLES Final Resul t Performing Organization Address City/[facility]/ZIP Co de Phone Number [facility] [address] [place] [phone] * TSH (08/02/2024 5:05 PM EDT) Thyroid Stimulating Hormone 2.46 0.32 - 4.0 uIU/mL [facility] Comment:TSH 3rd Generation ( [facility]) Blood Venous blood specimen / Unknown 08/02/2024 5:05 PM EDT 08/02/2024 5:10 PM EDT Marisabel Michel MD LAB BLOOD ORDERABLES Final Resul t Performing Organization Address [facility]/ZIP Co de Phone Number [facility] [address] [place] [phone] * (ABNORMAL) Sed Rate by Modified Westergren (08/02/2024 5:05 PM EDT) Erythrocyte Sedimentation Rate 71(H) 0 - 20 MM/HR [facility] Comment:Patients with polycy themia and many hemoglobin abnormalitiesmay have depressed sed rates whereas patients with anemiamay have elevated sed rates. Blood Venous blood specimen / Unknown 08/02/2024 5:05 PM EDT 08/02/2024 5:10 PM EDT us Marisabel Michel MD LAB BLOOD ORDERABLES Final Resul t Performing Organization Address [facility] Co de Phone Number [facility] [address] [place] [address] [phone] * (ABNORMAL) C-reactive Protein (08/02/2024 5:05 PM EDT) C Reactive Protein 1.90(H) < or = 0.50 mg/dL [facility] Blood Venous blood specimen / Unknown 08/02/2024 5:05 PM EDT 08/02/2024 5:10 PM EDT Marisabel Michel MD LAB BLOOD ORDERABLES Final Resul t Performing Organization Address [facility]/ZIP Co de Phone Number [facility] [address] [place] [phone] * T4, Free (07/15/2024 3:24 PM EDT) Free T4 (Free Thyroxine) 1.45 0.71 - 1.85 ng/dL [facility] Blood Venous blood specimen / Unknown 07/15/2024 3:24 PM EDT 07/15/2024 3:26 PM EDT Marisabel Michel MD LAB BLOOD ORDERABLES Final Resul t Performing Organization Address City/State/[facility] Co de Phone Number [facility] [address] [place] [phone] documented in this encounter Visit Diagnoses Diagnosis Elevated erythrocyte sedimentation rate- Primary Elevated sedimentation rate Cellulitis of lower extremity, unspecified laterality Abnormal TSH Fever, unspecified fever cause Acute right ankle pain Cellulitis of right leg documented in this encounter Additional Health Concerns Assessment Noted Time PHQ-9 Depression Total Score: 0 03/29/20 24 3:23 PM EDT documented as of this encounter Care Teams Acid Correction Hand Relationship Specialty Start Date End Date Marisabel Michel MD [address] [place] [phone] PCP - General Family Medicine 09/04/11 documented as of this encounter
--- OUTSIDE RECORDS SUMMARY | 2025-04-07 14:52 | XMS_ITS | Encounter Summary ---
Author Organization [employer] Address [address] [facility] 7t [place] [address] Care Team Providers Care Transit Planning Manager Name Role Phone Marisabel Michel MD Primary Care Provider [phone] Encounter Details Date Type Department Care Team (Late st Contact Info) Description 01/08/2023 Orders Only [facility] [address] [place] [address] [phone] Marisabel Michel MD [address] [place] [address] [phone] Allergic rhinitis due to other allergic trigger, [...] EDT Office Visit [facility] [address] [place] [address] [phone] Marisabel Michel MD [address] [place] [address] [phone] documented as of this encounter Visit Diagnoses Diagnosis Allergic rhinitis due to other allergic trigger, unspecified seasonality- Primary Moderate persistent asthma without complication documented in this encounter Care Teams Transit Planning Manager Relationship Specialty Start Date End Date Marisabel Michel MD [address] [place] [address] PCP - General Family Medicine 09/04/11 documented as of this encounter
--- OUTSIDE RECORDS SUMMARY | 2025-04-07 14:52 | XMS_ITS | Encounter Summary ---
Author Organization [employer] Address [address] [facility] [address] 7[address] [place] [address] Care Team Providers Care Insurance Actuary Name Role Phone Marisabel Michel MD Primary Care Provider [phone] Encounter Details Date Type Department Care Team ([facility] st Contact Info) Description 04/05/2025 Orders Only [facility] External Provider, [facility] Social History Tobacco Use Types Packs/Day Years [...] Description 06/05/2025 1:45 PM EDT Office Visit [facility] [address] [place], [place] [phone] Marisabel Michel MD [address] [place] [address] documented as of this encounter Procedures Procedure Name Priority Date/Time Associated Diagnosis Comments US RENAL BI Routine 04/05/2025 3:59 PM EDT documented in this encounter Results * US RENAL BI (04/05/2025 3:59 PM EDT) Anatomical Region Laterality Modality Abdomen Ultrasound 04/05/2025 3:59 PM EDT Narrative 04/05/2025 4:00 PM EDT ? [facility] ?[address] ? [place] [address] ? Ultrasound Report ? Signed ? Patient: Chuy Vera,Radha ?MR#: ?? [id number] ? : 1970 ?Acct:[id number] ? Age/Sex: 54 / F ?ADM Date: 05/14/25 ? Loc: HO.HMGCX ? Attending Dr: Binh Zelaya MD ? Ordering Physician: Binh Zelaya MD ?? Date of Service: 04/05/25 ?? Procedure(s): US renal BI ?? Accession Number(s): [id number] ? cc: Binh Zelaya MD; Marisabel Michel [...] document has been electronically signed by: Luci oClon MD on ?? 04/05/2025 15:59:00 ? Dictated By: ?Luci Colon MD ? Signed By: ?<Electronically signed by Luci Colon MD in OV> ? 04/05/25 1600 ? DD/ 1559 ? TD/TT: 04/05/25 1559 ? Chop Saw Operator: ? Procedure Note Donotsulaimaninterpreter, Image - 04/05/2025 [facility] [address] [place] [address] [place] [address] Ultrasound Report Signed Patient: Gibson Kimballmagy#: [id number] : 1970Acct:[id number] Age/Sex: 54 / FADM Date: 04/05/25 Loc: HO.HMGCX Attending Dr: Binh Zelaya MD Ordering Physician: Binh Zelaya MD Date of Service: 04/05/25 Procedure(s): US renal BI Accession Number(s): [id number] cc: Binh Zelaya MD; Marisabel Michel MD [...] 04/05/25 1600 DD/ 58 TD/TT: 04/05/25 1559 Chop Saw Operator: [facility] [employer] [facility] External Provider IMG US PROCEDURES Final Result documented in this encounter Visit Diagnoses Not on filedocumented in this encounter Additional Health Concerns Assessment Noted Time PHQ-9 Depression Total Score: 0 03/29/20 24 3:23 PM EDT documented as of this encounter Care Teams Insurance Actuary Relationship Specialty Start Date End Date Marisabel Michel MD [address] [place] [phone] PCP - General Family Medicine 09/04/11 documented as of this encounter
--- OUTSIDE RECORDS SUMMARY | 2025-04-07 14:52 | XMS_ITS | Encounter Summary ---
Author Organization [employer] Address [address] [facility] [address] 7[address] [place] [address] Care Team Providers Care Multiple Needle Stitcher Name Role Phone Marisabel Michel MD Primary Care Provider [phone] Reason for Visit * Reason Comments Med Refill Encounter Details Date Type Department Care Team ([facility] st Contact Info) Description 11/06/2023 Refill [facility] [address] [place], [place] [phone] Vicky Sage, ANP [address] [place], [place] [phone] Social History Tobacco Use Types Packs/Day Years [...] Description 06/05/2025 1:45 PM EDT Office Visit [facility] [address] [place] [address] Marisabel Michel MD [address] [place] [address] documented as of this encounter Visit Diagnoses Not on filedocumented in this encounter Additional Health Concerns Assessment Noted Time PHQ-9 Depression Total Score: 2 02/25/20 23 1:12 PM EDT documented as of this encounter Care Teams Multiple Needle Stitcher Relationship Specialty Start Date End Date Marisabel Michel MD [address] [place] [address] PCP - General Family Medicine 09/04/11 documented as of this encounter
--- OUTSIDE RECORDS SUMMARY | 2025-04-07 14:52 | XMS_ITS | Encounter Summary ---
Author Organization [employer] Address [address] [facility] [address] 7[address] [place] [address] Care Team Providers Care Political Anthropologist Name Role Phone Marisabel Michel MD Primary Care Provider [phone] Encounter Details Date Type Department Care Team ([facility] st Contact Info) Description 03/28/2025 Orders Only [facility] [address] [place], [place] [phone] Marisabel Michel MD [address] [place], [place] [phone] Prediabetes (Primary Dx); Screening for lipid disorders; [...] Description 06/05/2025 1:45 PM EDT Office Visit [facility] [address] [place] [address] Marisabel Michel MD [address] [place] [address] Scheduled Orders Name Type Priority Associated Diagnoses [...] documented as of this encounter Care Teams Political Anthropologist Relationship Specialty Start Date End Date Marisabel Michel MD [address] [place] [address] PCP - General Family Medicine 09/04/11 documented as of this encounter
--- OUTSIDE RECORDS SUMMARY | 2025-04-07 14:52 | XMS_ITS | Encounter Summary ---
Author Organization [employer] Address [address] [facility] [address] [place] [address] Care Team Providers Care Agricultural Equipment Sales Manager Name Role Phone Marisabel Michel MD Primary Care Provider [phone] Encounter Details Date Type Department Care Team ([facility] st Contact Info) Description 08/01/2024 Orders Only [facility] [address] [place], [place] [phone] Marisabel Michel MD [address] [place], [place] [phone] Prediabetes (Primary Dx) Social History Tobacco Use [...] EDT Office Visit [facility] [address] [place] [address] [phone] Marisabel Michel MD [address] [place] [phone] documented as of this encounter Visit Diagnoses Diagnosis Prediabetes- Primary Other abnormal glucose documented in this encounter Additional Health Concerns Assessment Noted Time PHQ-9 Depression Total Score: 0 03/29/20 24 3:23 PM EDT documented as of this encounter Care Teams Agricultural Equipment Sales Manager Relationship Specialty Start Date End Date Marisabel Michel MD [address] [place] [phone] PCP - General Family Medicine 09/04/11 documented as of this encounter
--- OUTSIDE RECORDS SUMMARY | 2025-04-07 14:53 | XMS_ITS | Clinical Summary ---
Author Organization [employer] Address [address] [facility] 7t [place] [address] Care Team Providers Care Scanner Operator Name Role Phone Marisabel Michel MD Primary Care Provider [phone] Allergies Active Allergy Reactions Criticality Noted Date [...] 12 tablet 3 Active Blood Pressure Monitor [facility] Check BP regularly as directed by your [...] DAY 45 tablet 3 Active sodium chloride (Russell) 0.65 % nasal spray Administer 1 spray [...] (02/18/2025 5:07 AM EDT): - following with flange machine operator - she is pleased with her new flange machine operator's care - continue following the recommendation from the flange machine operator Acquired hammer toe of right foot 02/18/2025 Assessment & Plan (02/18/2025 5:07 AM EDT): - following with flange machine operator - she is pleased with her new flange machine operator's care - continue following the recommendation from the flange machine operator Ulcer of toe of left foot 02/18/2025 Assessment & Plan (02/18/2025 5:07 AM EDT): - following with flange machine operator - she is pleased with her new flange machine operator's care - continue following the recommendation from the flange machine operator Environmental allergies 10/05/2024 Orthopnea 10/05/2024 Osteoarthritis of [...] / lateral compartment osteoarthritis. - seen by [facility] Ortho on 05/18/24 and was given intraarticular [...] of osteoporosis / osteopenia - Following with flange machine operator; seen yesterday - Evaluate with MRI due [...] PCP and furosemide which was prescribed by wool and pelt grader -Continue working on lifestyle modifications -Continue self-monitoring [...] PCP and furosemide which was prescribed by wool and pelt grader -Continue working on lifestyle modifications -Continue self-monitoring [...] PCP and furosemide which was prescribed by wool and pelt grader -Continue working on lifestyle modifications -Continue self-monitoring [...] (07/01/2023 3:47 PM EDT): -followed by urologist, [facility] seen on 04/07/23, annual f/u -most recent [...] Plan (07/29/2024 10:22 AM EDT): -followed by ferry terminal supervisor, Dr. Rivers -advised to schedule appointment with Dr. Rivers to evaluate for her cellulitis; possible stasis dermatitis and/or atopic dermatitis. Assessment & Plan (03/08/2023 7:04 PM EDT): -followed by ferry terminal supervisor, Dr. Rivers Tubular adenoma of colon 03/08/2023 [...] Plan (07/01/2023 3:46 PM EDT): -Followed by [employer]. -Cont moisturization. -Leg elevation -Low sodium diet Assessment & Plan (03/08/2023 7:16 PM EDT): Followed by [employer]. -Cont moisturization. -Keep legs elevated. 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 Assessment & Plan (06/28/2024 5:46 AM EDT): - bilateral - following with [facility] orthopedic provider - received steroid injection to left knee in January 2023 - received steroid injection to right knee in April 2024 Assessment & Plan (03/08/2023 6:55 PM EDT): - seen by [facility] orthopedic provider on 12/26/22 - received steroid [...] AM EDT): Previously followed by allergy / excel specialist, Dr. Loco, now waiting for an appt with new specialist Evaluated by [facility] in 2022, patient was offered immunotherapy, but had been hesitant Currently following with [facility] pulmonology for both allergy, asthma, and FARTUN Continue cetirizine 10 mg bid Continue montelukast 10 mg daily Continue flonase Assessment & Plan (12/25/2023 6:13 AM EST): Previously followed by allergy / excel specialist, Dr. Loco, now waiting for an appt with new specialist Evaluated by [facility] provider in 2022, patient was offered immunotherapy, but had been hesitant Currently following with [facility] pulmonology for both allergy, asthma, and FARTUN Continue cetirizine 10 mg bid Continue montelukast 10 mg daily Continue flonase Assessment & Plan (03/08/2023 7:14 PM EDT): Previously followed by allergy / excel specialist, Dr. Loco, now waiting for an appt with new specialist Continue cetirizine 10 mg bid Continue montelukast 10 mg daily Continue flonase Assessment & Plan (10/29/2022 2:29 PM EST): ?? Followed by allergy / excel specialist, Dr. Mcelroy ?? Continue cetirizine 10 mg bid ?? Continue montelukast 10 mg daily Asthma 08/29/2015 Assessment & Plan (02/14/2025 9:44 AM EDT): -Previously followed by Dr. Loco, allergy /excel specialist -Currently following with Dr. Pederson [facility] pulmonology -Exacerbation 1-2 times per year -Last exacerbation in November 2020, Rx Prednisone (-Continue Spiriva) - Dr. Loco prescribed, but not mentioned in Dr. Pederson's note -Continue Breo -Continue montelukast -Continue albuterol HFA/neb prn Treatment Hx: Advair, difficulty using Diskus; Pulmicort; Incruse Assessment & Plan (06/28/2024 5:58 AM EDT): -Previously followed by Dr. Loco, allergy /excel specialist -Currently following with Dr. Pederson [facility] pulmonology -Exacerbation 1-2 times per year -Last exacerbation in November 2020, Rx Prednisone (-Continue Spiriva) - Dr. Loco prescribed, but not mentioned in Dr. Pederson's note -Continue Breo -Continue montelukast -Continue albuterol HFA/neb prn Treatment Hx: Advair, difficulty using Diskus; Pulmicort; Incruse Assessment & Plan (03/29/2024 5:07 PM EDT): -Previously followed by Dr. Loco, allergy /excel specialist -Currently following with Dr. Pederson [facility] pulmonology -Exacerbation 1-2 times per year -Last exacerbation in November 2020, Rx Prednisone (-Continue Spiriva) - Dr. Loco prescribed, but not mentioned in Dr. Pederson's note -Continue Breo -Continue montelukast -Continue albuterol HFA/neb prn Treatment Hx: Advair, difficulty using Diskus; Pulmicort; Incruse Assessment & Plan (12/25/2023 6:04 AM EST): -Previously followed by Dr. Loco, allergy /excel specialist -Currently following with Dr. Pederson, [facility] pulmonology -Exacerbation 1-2 times per year -Last exacerbation in November 2020, Rx Prednisone (-Continue Spiriva) - Dr. Loco prescribed, but not mentioned in Dr. Pederson's note -Continue Breo -Continue montelukast -Continue albuterol HFA/neb prn Treatment Hx: Advair, difficulty using Diskus; Pulmicort; Incruse Assessment & Plan (07/01/2023 3:43 PM EDT): -Previously followed by Dr. Loco, allergy /excel specialist -Exacerbation 1-2 times per year -Last exacerbation in November 2020, Rx Prednisone -Continue Spiriva -Continue Breo -Continue Singulair -Continue albuterol HFA/neb prn Treatment Hx: Advair, difficulty using Diskus; Pulmicort; Incruse Assessment & Plan (03/08/2023 6:59 PM EDT): -Previously followed by Dr. Loco, allergy /excel specialist -Exacerbation 1-2 times per year -Last exacerbation in November 2020, Rx Prednisone -Continue Spiriva -Continue Breo -Continue Singulair -Continue albuterol HFA/neb prn Treatment Hx: Advair, difficulty using Diskus; Pulmicort; Incruse Assessment & Plan (10/28/2022 9:38 PM EST): ?? Diabetes Specialist, Dr. Mcelroy, upcoming appt ?? Continue Breo [...] will continue using furosemide judiciously. - patient's flow worker recommended to double the dose of furosemide, [...] will continue using furosemide judiciously. - patient's flow worker recommended to double the dose of furosemide, [...] Department Care Team Description 04/05/2025 Orders Only [facility] External Provider, [facility] 04/04/2025 Refill [facility] [address] [place] [address] Marisabel Michel MD 03/30/2025 Orders Only [facility] [address] [place] [address] Marisabel Michel MD 03/28/2025 Telephone [facility] [address] [place] [address] Marisabel Michel MD 03/28/2025 Orders Only [facility] [address] [facility] [address] Marisabel Michel MD Prediabetes (Primary Dx); Screening for lipid disorders; Screening for diabetes mellitus; Hypokalemia 03/27/2025 Telephone [facility] [address] [facility] [place], [place] [address] Marisabel Michel MD FYI 03/17/2025 Telephone [facility] [address] [facility] [place] [address] Nilda Trent RN 03/16/2025 Telephone [facility] [address] [facility] [place] [address] Marisabel Michel MD Nurse Triage 03/16/2025 Refill [facility] [address] [facility] [address] Marisabel Michel MD 03/15/2025 Refill [facility] [address] [facility] [address] Clair Lombardi MD 03/12/2025 Refill [facility] [address] [facility] [address] Marisabel Michel MD 03/02/2025 Refill [facility] [address] [facility] [address] Marisabel Michel MD 03/01/2025 Refill [facility] [address] [place] [address] Marisaebl Michel MD 02/14/2025 1:00 PM EDT Office Visit [facility] [address] [facility] [address] Marisabel Michel MD Moderate persistent asthma without [...] foot, unspecified ulcer stage (CMS/HCC) 02/14/2025 Telephone [facility] [address] [place] [address] Marisabel Michel MD 02/14/2025 Travel 02/09/2025 Telephone [facility] [address] [place] [address] Marisabel Michel MD chart prep 01/27/2025 Refill [facility] [address] [place] [address] Marisabel Michel MD Allergic rhinitis due to other allergic trigger, unspecified seasonality 01/12/2025 Telephone [facility] [address] [place] [address] Marisabel Michel MD Durable Medical Equipment 01/08/2025 [...] EDT Office Visit [facility] [address] [place], [place] [phone] Marisabel Michel MD [address] [place] [address] Health Maintenance Due Date Last Done Comments [...] EDT ? [facility] ?[address] [facility] [address] ? [place] [address] ? Ultrasound Report ? Signed ? Patient: Radha Kimball ?MR#: ?? [id number] ? : 1970 ?Acct:[id number] ? Age/Sex: 54 / F ?ADM Date: 04/05/25 ? Loc: HO.HMGCX ? Attending Dr: Binh Zelaya MD ? Ordering Physician: Binh Zelaya MD ?? Date of Service: 04/05/25 ?? Procedure(s): US renal BI ?? Accession Number(s): [id number] ? cc: Binh Zelaya MD; Marisabel Michel [...] DD/ 1559 ? TD/TT: 04/05/25 1559 ? Print Line Tailer: ? Procedure Note Sana Lima - 04/05/2025 [facility] [address] [facility] [address] [place], [place] [address] Ultrasound Report Signed Patient: Shani Kimball#: [id number] : 1970Acct:[id number] Age/Sex: 54 / FADM Date: 04/05/25 Loc: HO.HMGCX Attending Dr: Binh Zelaya MD Ordering Physician: Binh Zelaya MD Date of Service: 04/05/25 Procedure(s): US renal BI Accession Number(s): [id number] cc: Binh Zelaya MD; Marisabel Michel MD [...] OV> 04/05/25 1600 DD/ 155 TD/TT: 04/05/251558 Print Line Tailer: us [facility] External Provider IMG US PROCEDURES Final Result * (ABNORMAL) Hemoglobin A1c (08/02/2024 5:05 PM EDT) Hemoglobin A1c 6.1(H) <6.0 % [facility] Comment:Hemoglobin A1C Refer ence Range Adults: 4.8 - 6.0 % Non diabetic: < 6.0 % Goal: < 7.0 %Additional Action Suggested: > 8.0 %Note: Hemoglobin A1c results are invalid for patients with abnormal amounts of HbF. Blood transfusions may impact the HbA1c concentration in the patient sample. Estimated Average Glucose 128 mg/dL [facility] Comment:eAG = Estimated ave rage glucose which is %A1C expressed asaverage glucose, using the formula of the M3P-MvelzryOuelxnm Glucose study (ADAG), Diabetes Care, Vol.31,#8,Aug. 2008 Blood Venous blood specimen / Unknown 08/02/2024 5:05 PM EDT 08/02/2024 5:10 PM EDT us Marisabel Michel MD LAB BLOOD ORDERABLES Final Resul t [facility] [address] [place] [address] [phone] * BI Mammogram Screening Tomosynthesis Bilateral (03/21/2024 1:10 PM EDT) Anatomical Region Laterality Modality Breast Bilateral Mammography 03/21/2024 1:10 PM EDT Narrative 04/17/2024 6:32 AM EDT ? [facility] ? [address] ?[place] [address] ? Mammography Report ? Signed ? Patient: Radha Kimball ?MR#: ?? [id number] ? : 1970 ?Acct:[id number] ? Age/Sex: 53 / F ?ADM Date: 03/21/24 ? Loc: HO.MAMMO ? Attending Dr: Marisabel Michel MD ? Ordering Physician: Anand,Marisabel MD ?Results: 1Negative ? Date of Service: 03/21/ ?Follow Up: 1 Year From Orig ?? inal Mammogram ? Procedure(s): MM tomosynthesis screening BI ?? Accession Number(s): [id number] ? cc: Marisabel Michel MD ? EXAMINATION: [...] 0629 ? DD/ 1310 ? TD/TT: ? Print Line Tailer: ? Procedure Note Clarence, Image - 04/17/2024 [facility] [address] [place] [address] Dr. [place], [place] [address] Mammography Report Signed Patient: Chuy AntoniozqueRadha mckeon#: [id number] : 1970Acct:[id number] Age/Sex: 53 / FADM Date: 03/21/24 Loc: RAFAT Attending Dr: Marisabel Michel MD Ordering Physician: Marisabel Michel MDResults: 1Negative Date of Service: 03/21/24Follow Up: 1 Year From Orig ina Mammogram Procedure(s): MM tomosynthesis screening BI Accession Number(s): [id number] cc: Marisabel Michel MD EXAMINATION: MM SCREENING [...] in OV> 04/17/24 0629 DD/ 1310 TD/TT: Print Line Tailer: Marisabel Michel MD IMG BI PROCEDURES Final Result * (ABNORMAL) Lipid Panel with Reflex to Direct LDL (12/07/2023 10:20 AM EST) Triglycerides 71 <150 mg/dL [facility] Comment:Desirable Triglyceri de: less than 150 mg/dLBorderline High Triglyceride 150-199 mg/dLHigh Triglyceride: 200-499 mg/dLVery High Triglyceride: greater than or equal to 5OO mg/dL Cholesterol 167 <200 mg/dL [facility] Comment:Desirable Cholestero l: less than 200 mg/dLBorderline High Cholesterol: 200-239 mg/dLHigh Cholesterol: greater than 239 mg/dL LDL Cholesterol Calculated 110(H) <100 mg/dL [facility] Comment:Desirable LDL: less than 100 mg/dLNear Optimal/Above Optimal LDL: 110- 129 mg/dLBorderline High LDL: 130-159 mg/dLHigh LDL: 160-189 mg/dLVery High LDL: greater than or equal to 190 mg/dL HDL Cholesterol 43 >40 mg/dL [facility] Comment:Desirable HDL: great er than 40 mg/dL Note: This HDL assay may give artificially low results in patients with liver disease. Blood 12/07/2023 10:2 0 AM EST 12/07/2023 10:20 AM EST Marisabel Michel MD LAB BLOOD ORDERABLES Final Resul t [facility] [address] [place] [address] [phone] * Colonoscopy (06/12/2021) Colonoscopy Normal Normal us George Lambert MD HEALTH MAINTENANCE Edited Result - Final from Last 3 Months or Most Recently Relevant to Health Maintenance Insurance [facility]ARE < [address] [place] [id number] Care Teams Scanner Operator Relationship Specialty Start Date End Date Marisabel Michel MD [address] [place] [phone] PCP - General Family Medicine 09/04/11
--- OUTSIDE RECORDS SUMMARY | 2025-04-07 14:53 | XMS_ITS | Encounter Summary ---
Author Organization [employer] Address [address] [facility] 7t [place] [address] Care Team Providers Care Cabin Crew Name Role Phone Marisabel Michel MD Primary Care Provider [phone] Encounter Details Date Type Department Care Team (Late st Contact Info) Description 06/30/2023 Abstract [facility] [address] [place] [address] [phone] Marisabel Michel MD [address] [place] [address] [phone] Social History Tobacco Use Types Packs/Day Years [...] Description 06/05/2025 1:45 PM EDT Office Visit [facility] [address] [place] [address] [phone] Marisabel Michel MD [address] [place] [address] [phone] documented as of this encounter Procedures Procedure [...] documented as of this encounter Care Teams Cabin Crew Relationship Specialty Start Date End Date Marisabel Michel MD [address] [place] [address] PCP - General Family Medicine 09/04/11 documented as of this encounter
--- OUTSIDE RECORDS SUMMARY | 2025-04-07 14:53 | XMS_ITS | Encounter Summary ---
Author Organization [employer] Address [address] [facility] [address] 7[address] [place] [address] Care Team Providers Care Financial Services Director Name Role Phone Marisabel Michel MD Primary Care Provider [phone] Reason for Visit * Reason Comments Med Refill Encounter Details Date Type Department Care Team ([facility] st Contact Info) Description 04/04/[address] [facility] [address] [place], [place] [phone] Marisabel Michel MD [address] [place], [place] [phone] Social History Tobacco Use Types Packs/Day Years [...] Description 06/05/2025 1:45 PM EDT Office Visit [facility] [address] [place] [phone] Marisabel Michel MD [address] [place] [phone] documented as of this encounter Visit Diagnoses Not on filedocumented in this encounter Additional Health Concerns Assessment Noted Time PHQ-9 Depression Total Score: 0 03/29/20 24 3:23 PM EDT documented as of this encounter Care Teams Financial Services Director Relationship Specialty Start Date End Date Marisabel Michel MD [address] [place] [phone] PCP - General Family Medicine 09/04/11 documented as of this encounter
--- OUTSIDE RECORDS SUMMARY | 2025-04-07 14:53 | XMS_ITS | Encounter Summary ---
Author Organization [employer] Address [address] [facility] [address] 7[address] [place] [address] Care Team Providers Care Rn Travel Name Role Phone Marisabel Michel MD Primary Care Provider [phone] Encounter Details Date Type Department Care Team (Late st Contact Info) Description 10/21/2023 Orders Only [facility] [address] [place], [place] [phone] Marisabel Michel MD [address] [place] [address] Open wound of right lower leg due [...] 1:45 PM EDT Office Visit [facility] [address] [place] [address] Marisabel Michel MD [address] [place] [address] documented as of this encounter Visit Diagnoses Diagnosis Open wound of right lower leg due to dog bite- Primary Peripheral venous insufficiency Unspecified venous (peripheral) insufficiency Venous stasis dermatitis of both lower extremities documented in this encounter Additional Health Concerns Assessment Noted Time PHQ-9 Depression Total Score: 2 02/25/20 23 1:12 PM EDT documented as of this encounter Care Teams Rn Travel Relationship Specialty Start Date End Date Marisabel Michel MD [address] [place] [phone] PCP - General Family Medicine 09/04/11 documented as of this encounter
--- OUTSIDE RECORDS SUMMARY | 2025-04-07 14:53 | XMS_ITS | Encounter Summary ---
Author Organization [employer] Address [address] [facility] 7t [place] [address] Care Team Providers Care Geothermal Heat Pump Machinist Name Role Phone Marisabel Michel MD Primary Care Provider [phone] Reason for Visit * Reason Onset Date Comments Appointment Request 01/23/2023 Encounter Details Date Type Department Care Team (Late Contact Info) Description 01/23/2023 Telephone [facility] [address] [place] [address] [phone] Marisabel Michel MD [address] [place] [phone] Appointment Request Social History Tobacco Use Types [...] appt with pcp. Please contact pt at [phone] documented in this encounter Plan of Treatment Upcoming Encounters Date Type Department Care Team (Late Contact Info) Description 06/05/2025 1:45 PM EDT Office Visit [facility] [address] [place] [address] Marisabel Michel MD [address] [place], [place] [phone] documented as of this encounter Visit Diagnoses Not on filedocumented in this encounter Care Teams Geothermal Heat Pump Machinist Relationship Specialty Start Date End Date Marisabel Michel MD [address] [place], [place] [phone] PCP - General Family Medicine 09/04/11 documented as of this encounter
--- OUTSIDE RECORDS SUMMARY | 2025-04-07 14:53 | XMS_ITS | Encounter Summary ---
Author Organization [employer] Address [address] [facility] [address] 7[address] [place] [address] Care Team Providers Care Advertising Account Executive Name Role Phone Marisabel Michel MD Primary Care Provider [phone] Reason for Visit * Reason Onset Date Comments Med Refill 09/15/2023 Encounter Details Date Type Department Care Team ([facility] st Contact Info) Description 09/15/2023 Telephone [facility] [address] [place], [place] [phone] Marisabel Michel MD [address] [place], [place] [phone] Med Refill Social History Tobacco Use Types [...] the past 12 months, has t he [employer], gas, oil or water company threatened to [...] 1:45 PM EDT Office Visit [facility] [address] [place] [phone] Marisabel Michel MD [address] [place] [address] documented as of this encounter Visit Diagnoses Not on filedocumented in this encounter Additional Health Concerns Assessment Noted Time PHQ-9 Depression Total Score: 2 02/25/20 23 1:12 PM EDT documented as of this encounter Care Teams Advertising Account Executive Relationship Specialty Start Date End Date Marisabel Michel MD [address] [place] [phone] PCP - General Family Medicine 09/04/11 documented as of this encounter
--- OUTSIDE RECORDS SUMMARY | 2025-04-07 14:53 | XMS_ITS | Encounter Summary ---
Author Organization [employer] Address [address] [facility] [address] [place] [address] Care Team Providers Care Tank Tester Name Role Phone Marisabel Michel MD Primary Care Provider [phone] Encounter Details Date Type Department Care Team ([facility] st Contact Info) Description 10/26/2023 Orders Only [facility] [address] [place], [place] [phone] Marisabel Michel MD [address] [place], [place] [phone] Social History Tobacco Use Types Packs/Day Years [...] EDT Office Visit [facility] [address] [place] [address] Marisabel Michel MD [address] [place] [address] documented as of this encounter Visit Diagnoses Not on filedocumented in this encounter Additional Health Concerns Assessment Noted Time PHQ-9 Depression Total Score: 2 02/25/20 23 1:12 PM EDT documented as of this encounter Care Teams Tank Tester Relationship Specialty Start Date End Date Marisabel Michel MD [address] [place] [address] PCP - General Family Medicine 09/04/11 documented as of this encounter
--- OUTSIDE RECORDS SUMMARY | 2025-04-07 14:53 | XMS_ITS | Encounter Summary ---
Author Organization [email or web address] Address [address] [address] [place] [address] Care Team Providers Care Log Feeder Name Role Phone Marisabel Michel MD Primary Care Provider [phone] Reason for Visit * Reason Comments Med Refill Encounter Details Date Type Department Care Team ([facility] st Contact Info) Description 12/11/2024 Refill [facility] [address] [place], [place] [phone] Marisabel Michel MD [address] [place], [place] [phone] Social History Tobacco Use Types Packs/Day Years [...] EDT Office Visit [facility] [address] [place] [phone] Marisabel Michel MD [address] [place] [phone] documented as of this encounter Visit Diagnoses Not on filedocumented in this encounter Additional Health Concerns Assessment Noted Time PHQ-9 Depression Total Score: 0 03/29/20 24 3:23 PM EDT documented as of this encounter Care Teams Log Feeder Relationship Specialty Start Date End Date Marisabel Michel MD [address] [place] [address] PCP - General Family Medicine 09/04/11 documented as of this encounter
--- OUTSIDE RECORDS SUMMARY | 2025-04-07 14:53 | XMS_ITS | Encounter Summary ---
Author Organization [employer] Address [address] 7[address] [place] [address] Care Team Providers Care Bus Matron Name Role Phone Marisabel Michel MD Primary Care Provider [phone] Encounter Details Date Type Department Care Team ([facility] st Contact Info) Description 03/30/2025 Orders Only [facility] MEDICINE [address] [place], [place] [phone] Marisabel Michel MD [address] [place], [place] [phone] Social History Tobacco Use Types Packs/Day Years [...] 06/05/2025 1:45 PM EDT Office Visit [facility] MEDICINE [address] [place] [address] Marisabel Michel MD [address] [place] [address] documented as of this encounter Visit Diagnoses Not on filedocumented in this encounter Additional Health Concerns Assessment Noted Time PHQ-9 Depression Total Score: 0 03/29/20 24 3:23 PM EDT documented as of this encounter Care Teams Bus Matron Relationship Specialty Start Date End Date Marisabel Michel MD [address] [place] [address] PCP - General Family Medicine 09/04/11 documented as of this encounter
--- OUTSIDE RECORDS SUMMARY | 2025-04-07 14:53 | XMS_ITS | Encounter Summary ---
Author Organization [employer] Address [address] 7[address] [place] [address] Care Team Providers Care Continuity Clerk Name Role Phone Marisabel Michel MD Primary Care Provider [phone] Encounter Details Date Type Department Care Team ([facility] st Contact Info) Description 10/01/2023 Orders Only [facility] MEDICINE [address] [place], [place] [phone] Marisabel Michel MD [address] [place], [place] [phone] Social History Tobacco Use Types Packs/Day Years [...] 1:45 PM EDT Office Visit [facility] MEDICINE [address] [place] [address] Marisabel Michel MD [address] [place] [address] documented as of this encounter Visit Diagnoses Not on filedocumented in this encounter Additional Health Concerns Assessment Noted Time PHQ-9 Depression Total Score: 2 02/25/20 23 1:12 PM EDT documented as of this encounter Care Teams Continuity Clerk Relationship Specialty Start Date End Date Marisabel Michel MD [address] [place] [address] PCP - General Family Medicine 09/04/11 documented as of this encounter
--- OUTSIDE RECORDS SUMMARY | 2025-04-07 14:53 | XMS_ITS | Encounter Summary ---
Author Organization [employer] Address [address] [place] [address] 7 [place] [address] Care Team Providers Care Pattern Hanger Name Role Phone Marisabel Michel MD Primary Care Provider [phone] Reason for Referral * Consultation (Routine) - Closed Specialty Diagnoses / Procedures Referred By Vee t Referred To Contact Physical Therapy Diagnoses Cerebral palsy, unspecified type (CMS/HCC) Wheelchair dependence Marisabel Michel MD [address] [place] [address] Phone: tel: fax: Referral ID Status Reason Start Date Expiration Date V isits Requested Visits Authorized [id number] Closed Specialty Services Required 11/25/2024 11/25/2025 1 1 * Consultation (Routine) - Closed Specialty Diagnoses / Procedures Referred By Vee carter Referred To Contact Occupational Therapy Diagnoses Cerebral palsy, unspecified type (CMS/HCC) Wheelchair dependence Marisabel Michel MD [address] [place] [address] Phone: tel: fax: Referral ID Status Reason Start Date Expiration Date V isits Requested Visits Authorized [id number] Closed Specialty Services Required 11/25/2024 11/25/2025 1 1 Encounter Details Date Type Department Care Team (Late st Contact Info) Description 11/25/2024 Orders Only [facility] MEDICINE [address] [place] [phone] Marisabel Michel MD [address] [place] [address] Cerebral palsy, unspecified type (CMS/HCC) (Primary Dx); [...] Description 06/05/2025 1:45 PM EDT Office Visit [facility] MEDICINE [address] [place] [address] Marisabel Michel MD [address] [place] [address] Scheduled Referrals Name Type Priority Associated Diagnoses [...] documented as of this encounter Care Teams Pattern Hanger Relationship Specialty Start Date End Date Marisabel Michel MD [address] [place] [address] PCP - General Family Medicine 09/04/11 documented as of this encounter
[2025-04-07 15:35] LABS: Estimated Average Glucose 134 mg/dL; Hemoglobin A1C 148.4744 umol/L; Hemoglobin A1c % 6.3 % (<6.0)
[2025-04-07 15:37] LABS: Alanine Aminotransferase 27 U/L (0-31); Albumin Level 4.2 g/dL (3.5-5.0); Anion Gap 14 (12-20); Aspartate Amino Transferase 28 U/L (5-31); Bilirubin Total 0.4 mg/dL (0.0-1.0); Blood Urea Nitrogen 17 mg/dL (9-16); Calcium 9.7 mg/dL (8.4-10.2); Carbon Dioxide 25 mmol/L (22-29); Chloride 107 mmol/L (96-108); Cholesterol 196 mg/dL (<200); Estimated Glomerular Filt Rate > 60; Glucose Random 90 mg/dL (60-115); HDL Cholesterol 46 mg/dL (>40); LDL Cholesterol Calculated 130 mg/dL (<100); Potassium 3.7 mmol/L (3.3-5.1); Sodium 142 mmol/L (135-145); Total Protein 7.1 g/dL (6.5-8.0); Triglycerides 100 mg/dL (<150)
[2025-04-07 15:43] LABS: Reflex LDLD? No
[2025-04-07 15:54] LABS: Alkaline Phosphatase 62 U/L (39-117)
== END 2025-04-07 14:10 | disposition home or self-care (01) ==
LOC: HO.LAB 14:09
PROVIDERS: Absent Provider Family Medicine; PCP Family Medicine; Visit Provider Internal Medicine Pulmonary Disease
DX: Z13.220 Encounter for screening for lipoid disorders (principal); R73.03 Prediabetes; Z13.1 Encounter for screening for diabetes mellitus; E87.6 Hypokalemia; J45.909 Unspecified asthma, uncomplicated; G47.33 Obstructive sleep apnea (adult) (pediatric); R06.01 Orthopnea; Z91.09 Other allergy status, other than to drugs and biological substances; J32.9 Chronic sinusitis, unspecified
CPT/HCPCS: 36415; 80053; 80061; 83036; 99212

== ENCOUNTER 2025-04-07 14:09 | Outpatient (AMB) | payer OTHER, SELFPAY ==
[2025-04-07 14:11] VITALS: BP 122/78; PULSE 91; O2SAT 95
--- NOTE | 2025-04-07 14:11 | MHC.OFFVIS ---
Vital Signs 04/07/25 14:11 Height 5 ft 3 in BP 122/78 Blood Pressure Location Rt brachial Position Sitting Pulse 91 Pulse Source Pulse Oximeter Pulse Oximetry (%) 95 Oxygen Delivery Method Room Air Comment wheelchair bound Intake Visit Reasons: Asthma/FARTUN Allergies budesonide [From SYMBICORT] Allergy (Intermediate, Verified 04/07/25 14:18) TREMOR formoterol [From SYMBICORT] Allergy (Intermediate, Verified 04/07/25 14:18) TREMOR sulfamethoxazole [From BACTRIM] Allergy (Intermediate, Verified 04/07/25 14:18) RASH trimethoprim [From BACTRIM] Allergy (Intermediate, Verified 04/07/25 14:18) RASH Sulfa (Sulfonamide Antibiotics) Allergy (Unknown, Verified 04/07/25 14:18) Unknown Symbicort Allergy (Unknown, Uncoded 07/18/24 20:11) Unknown HPI HPI Asthma/FARTUN: Details: 54-year-old lady, nonsmoker, now seen for asthma, FARTUN, and environmental allergies. Patient has been using Breo and albuterol MDI with good control of her asthma symptoms. She is also on Singulair for the allergic component. She continues on her CPAP with reasonable control of underlying sleep apnea symptoms. Patient restarted on diuretic regimen after the last visit with significantly improved control for underlying orthopnea lower extremity edema. She complains of sinusitis symptoms over the last 2 weeks. [facility] Medical History (Updated 04/07/25 @ 15:03 by Uriel Pederson MD) Wheelchair dependence Edema of both lower extremities Hx of cerebral palsy GERD (gastroesophageal reflux disease) Asthma Alopecia Surgical History History of surgery Hx of appendectomy History of esophagogastroduodenoscopy (EGD) Hx of colonoscopy Hx of lithotripsy Social History Household Members: Family Housing: House Alcohol intake: never Patient Tobacco Use Status: Never used Tobacco service: No Current occupational status: disabled Review of Systems Const Denies daytime sleepiness, Denies excessive sweating, Denies fatigue, Denies fever(s), Denies lethargy, Denies malaise, Denies night sweats, Denies snoring and Denies weight loss Eyes Denies blurry vision and Denies itchy eyes ENT Reports nasal congestion, Reports post nasal drip, Denies sinus pain, Reports sinus pressure and Denies other ( Thrush) Card Denies chest pain, Denies pedal edema, Denies dyspnea, Denies orthopnea and Denies paroxysmal nocturnal dyspnea Resp Denies cough, Denies hemoptysis, Denies excessive phlegm production, Denies dyspnea, Denies snoring and Denies wheezing GI Denies abdominal pain and Denies heartburn Musc Denies myalgias, Denies arthralgias and Denies joint swelling Skin/Breast Denies rash Neuro Denies memory loss and Denies seizure-like activity Psych Denies abnormal sleep pattern, Denies anxiety and Denies memory loss Endo Denies excessive sweating, Denies fatigue and Denies heat intolerance Craig/Lymph Denies easy bruising Aller/Immun Denies itchy eyes, Denies seasonal rhinorrhea and Denies wheezing Physical Exam Vital Signs: Last Vital Signs Pulse 91 04/07/25 14:11 BP 122/78 04/07/25 14:11 Pulse Ox 95 04/07/25 14:11 Oxygen Delivery Method Room Air 04/07/25 14:11 Const General: no acute distress and alert Nutritional Appearance: obese Orientation/consciousness: Other orientation findings ( oriented) HEENT Head: Yes atraumatic Eyes General: appearance normal, both eyes and all related structures Sclerae: sclerae normal EOM: EOMs intact bilaterally Neck Neck: Yes supple Lymphatic: no lymphadenopathy noted Resp Effort & Inspection: normal respiratory effort and no use of accessory muscles Auscultation: clear to auscultation bilaterally Cardio Rate: regular rate Rhythm: regular rhythm Heart sounds: no gallops, no murmurs and no rubs Skin General skin exam: other ( warm) Extrem General: No clubbing, No cyanosis and No edema Assessment & Plan Assessment & Plan (1) Asthma: Code(s): J45.909 - Unspecified asthma, uncomplicated Category: Medical Plan: Well controlled on current regimen of Breo, ipratropium, and albuterol MDI. Continue current regimen. (2) FARTUN (obstructive sleep apnea): Comment: Moderately severe FARTUN. The total AHI was 24 with oxygen sukh was 72%. Code(s): G47.33 - Obstructive sleep apnea (adult) (pediatric) Category: Medical Plan: Controlled on current CPAP therapy. Continue CPAP therapy. (3) Orthopnea: Code(s): R06.01 - Orthopnea Category: Medical Plan: Improved on current diuretic regimen of Lasix 40 mg daily. Continue current regimen. (4) Environmental allergies: Code(s): Z91.09 - Other allergy status, other than to drugs and biological substances Category: Medical Plan: Well controlled on Flonase and Singulair. Continue current regimen. (5) Sinusitis: Code(s): J32.9 - Chronic sinusitis, unspecified Category: Medical Plan: Sinusitis, will treat with a course of doxycycline. Medications: New doxycycline monohydrate 100 mg PO BID 20 tabs 0RF 10 days Coding Level of Care Code Est Pt Level 5 (30123) Complex EM visit Add On G2211 Diagnoses Asthma J45.909 FARTUN (obstructive sleep apnea) G47.33 Orthopnea R06.01 Environmental allergies Z91.09 Sinusitis J32.9
--- OUTSIDE RECORDS SUMMARY | 2025-04-07 14:13 | XMS_ITS | Encounter Summary ---
Author Organization [employer] Address [address] [facility] 7t [place] [address] Care Team Providers Care Optimization Engineer Name Role Phone Marisabel Michel MD Primary Care Provider [phone] Reason for Referral * Consultation (Routine) - Authorized Specialty Diagnoses / Procedures Referred By Contcarlos t Referred To Contact Pharmacy Diagnoses Moderate persistent asthma without complication Prediabetes Primary hypertension Polypharmacy Marisabel Michel MD [address] [place] [address] Phone: tel: fax: Referral ID Status Reason Start Date Expiration Date Visits Requested Visits Authorized [id number] Authorized Continuity of Care 09/09/2024 09/09/2025 6 6 Encounter Details Date Type Department Care Team ([facility] st Contact Info) Description 09/09/2024 Orders Only [facility] [address] [place] [address] [phone] Marisabel Michel MD [address] [place] [address] [phone] Moderate persistent asthma without complication (Primary Dx); [...] Description 06/05/2025 1:45 PM EDT Office Visit [facility] [address] [place] [phone] Marisabel Michel MD [address] [place] [address] Scheduled Referrals Name Type Priority Associated Diagnoses [...] documented as of this encounter Care Teams Optimization Engineer Relationship Specialty Start Date End Date Marisabel Michel MD [address] [place] [phone] PCP - General Family Medicine 09/04/11 documented as of this encounter
--- OUTSIDE RECORDS SUMMARY | 2025-04-07 14:13 | XMS_ITS | Encounter Summary ---
Author Organization [employer] Address [address] [facility] [address] 7[address] [place] [address] Care Team Providers Care Cmo & President Name Role Phone Marisabel Michel MD Primary Care Provider [phone] Encounter Details Date Type Department Care Team ([facility] st Contact Info) Description 10/26/2023 Orders Only [facility] [address] [place], [place] [phone] Marisabel Michel MD [address] [place], [place] [phone] Social History Tobacco Use Types Packs/Day Years [...] Description 06/05/2025 1:45 PM EDT Office Visit [facility] [address] [place] [address] Marisabel Michel MD [address] [place] [address] documented as of this encounter Visit Diagnoses Not on filedocumented in this encounter Additional Health Concerns Assessment Noted Time PHQ-9 Depression Total Score: 2 02/25/20 23 1:12 PM EDT documented as of this encounter Care Teams Cmo & President Relationship Specialty Start Date End Date Marisabel Michel MD [address] [place] [address] PCP - General Family Medicine 09/04/11 documented as of this encounter
--- OUTSIDE RECORDS SUMMARY | 2025-04-07 14:13 | XMS_ITS | Encounter Summary ---
Author Organization [employer] Address [address] [facility] [address] [place] [address] Care Team Providers Care Systems Analyst Developer Name Role Phone Marisabel Michel MD Primary Care Provider [phone] Reason for Visit * Reason Comments Med Refill Encounter Details Date Type Department Care Team ([facility] st Contact Info) Description 04/04/2025 Refill [facility] [address] [place], [place] [phone] Marisabel Michel MD [address] [place], [place] [phone] Social History Tobacco Use Types Packs/Day Years [...] Description 06/05/2025 1:45 PM EDT Office Visit [facility] [address] [place] [address] Marisabel Michel MD [address] [place] [address] documented as of this encounter Visit Diagnoses Not on filedocumented in this encounter Additional Health Concerns Assessment Noted Time PHQ-9 Depression Total Score: 0 03/29/20 24 3:23 PM EDT documented as of this encounter Care Teams Systems Analyst Developer Relationship Specialty Start Date End Date Marisabel Michel MD [address] [place] [address] PCP - General Family Medicine 09/04/11 documented as of this encounter
--- OUTSIDE RECORDS SUMMARY | 2025-04-07 14:13 | XMS_ITS | Encounter Summary ---
Author Organization [employer] Address [address] [address] [place] [address] Care Team Providers Care Employment Appeals Examiner Name Role Phone Marisabel Michel MD Primary Care Provider [phone] Encounter Details Date Type Department Care Team ([facility] st Contact Info) Description 08/01/2024 Orders Only [facility] [address] [place], [place] [phone] Marisabel Michel MD [address] [place], [place] [phone] Prediabetes (Primary Dx) Social History Tobacco Use [...] Description 06/05/2025 1:45 PM EDT Office Visit [facility] [address] [place] [address] [phone] Marisabel Michel MD [address] [place] [address] documented as of this encounter Visit Diagnoses Diagnosis Prediabetes- Primary Other abnormal glucose documented in this encounter Additional Health Concerns Assessment Noted Time PHQ-9 Depression Total Score: 0 03/29/20 24 3:23 PM EDT documented as of this encounter Care Teams Employment Appeals Examiner Relationship Specialty Start Date End Date Marisabel Michel MD [address] [place] [phone] PCP - General Family Medicine 09/04/11 documented as of this encounter
--- OUTSIDE RECORDS SUMMARY | 2025-04-07 14:13 | XMS_ITS | Encounter Summary ---
Author Organization [employer] Address [address] [address] [place] [address] Care Team Providers Care Machine Load Clerk Name Role Phone Marisabel Michel MD Primary Care Provider [phone] Encounter Details Date Type Department Care Team (Late st Contact Info) Description 10/21/2023 Orders Only [facility] [address] [place], [place] [phone] Marisabel Michel MD [address] [place] [address] Open wound of right lower leg due [...] [facility] [address] [place] [address] Marisabel Michel MD [address] [place] [address] documented as of this encounter Visit Diagnoses Diagnosis Open wound of right lower leg due to dog bite- Primary Peripheral venous insufficiency Unspecified venous (peripheral) insufficiency Venous stasis dermatitis of both lower extremities documented in this encounter Additional Health Concerns Assessment Noted Time PHQ-9 Depression Total Score: 2 02/25/20 23 1:12 PM EDT documented as of this encounter Care Teams Machine Load Clerk Relationship Specialty Start Date End Date Marisabel Michel MD [address] [place] [address] PCP - General Family Medicine 09/04/11 documented as of this encounter
--- OUTSIDE RECORDS SUMMARY | 2025-04-07 14:13 | XMS_ITS | Encounter Summary ---
Author Organization [employer] Address [address] [facility] [address] [facility] [address] 7[address] [place] [address] Care Team Providers Care Tallow Pumper Name Role Phone Marisabel Michel MD Primary Care Provider [phone] Encounter Details Date Type Department Care Team (Late st Contact Info) Description 12/02/2022 Orders Only [facility] [address] [place] [address] [phone] Marisabel Michel MD [address] [place] [address] [phone] Moderate persistent asthma without complication (Primary Dx); [...] 06/05/2025 1:45 PM EDT Office Visit [facility] [address] [place] [address] [phone] Marisabel Michel MD [address] [place], [place] [phone] documented as of this encounter Visit Diagnoses Diagnosis Moderate persistent asthma without complication- Primary Allergic rhinitis due to other allergic trigger, unspecified seasonality Intrinsic atopic dermatitis documented in this encounter Care Teams Tallow Pumper Relationship Specialty Start Date End Date Marisabel Michel MD [address] [place] [address] [phone] PCP - General Family Medicine 09/04/11 documented as of this encounter
--- OUTSIDE RECORDS SUMMARY | 2025-04-07 14:13 | XMS_ITS | Encounter Summary ---
Author Organization [employer] Address [address] [place] [address] Care Team Providers Care Convenience Recycle Center Tech Name Role Phone Marisabel Michel MD Primary Care Provider [phone] Encounter Details Date Type Department Care Team ([facility] st Contact Info) Description 03/30/2025 Orders Only [facility] [address] [place], [place] [phone] Marisabel Michel MD [address] [place], [place] [phone] Social History Tobacco Use Types Packs/Day Years [...] Description 06/05/2025 1:45 PM EDT Office Visit [facility] [address] [place] [address] Marisabel Michel MD [address] [place] [address] documented as of this encounter Visit Diagnoses Not on filedocumented in this encounter Additional Health Concerns Assessment Noted Time PHQ-9 Depression Total Score: 0 03/29/20 24 3:23 PM EDT documented as of this encounter Care Teams Convenience Recycle Center Tech Relationship Specialty Start Date End Date Marisabel Michel MD [address] [place] [address] PCP - General Family Medicine 09/04/11 documented as of this encounter
--- OUTSIDE RECORDS SUMMARY | 2025-04-07 14:13 | XMS_ITS | Encounter Summary ---
Author Organization [employer] Address [address] [facility] 7t [place] [address] Care Team Providers Care Hot Metal Charger Name Role Phone Marisabel Michel MD Primary Care Provider [phone] Encounter Details Date Type Department Care Team (Late st Contact Info) Description 01/08/2023 Orders Only [facility] [address] [place] [address] [phone] Marisabel Michel MD [address] [place] [address] [phone] Allergic rhinitis due to other allergic trigger, [...] 1:45 PM EDT Office Visit [facility] [address] [place] [address] [phone] Marisabel Michel MD [address] [place] [address] [phone] documented as of this encounter Visit Diagnoses Diagnosis Allergic rhinitis due to other allergic trigger, unspecified seasonality- Primary Moderate persistent asthma without complication documented in this encounter Care Teams Hot Metal Charger Relationship Specialty Start Date End Date Marisabel Michel MD [address] [place] [address] PCP - General Family Medicine 09/04/11 documented as of this encounter
--- OUTSIDE RECORDS SUMMARY | 2025-04-07 14:13 | XMS_ITS | Encounter Summary ---
Author Organization [employer] Address [address] [facility] 7t [place] [address] Care Team Providers Care Estate Administrator Name Role Phone Marisabel Michel MD Primary Care Provider [phone] Reason for Referral * Consultation (Urgent) - Closed Specialty Diagnoses / Procedures Referred By Contac t Referred To Contact Diagnoses Cellulitis of right lower leg Pain in right lower leg Marisabel Michel MD [address] [place] [address] Phone: tel: fax: Ester Palm MD [address] [facility] [address] [place] [address] Phone: tel: Referral ID Status Reason Start Date Expiration Date V isits Requested Visits Authorized [id number] Closed Specialty Services Required 08/29/2024 08/29/2025 1 1 Encounter Details Date Type Department Care Team (Late st Contact Info) Description 08/29/2024 Orders Only [facility] [address] [place] [address] [phone] Marisabel Michel MD [address] [place], [place] [phone] Cellulitis of right lower leg (Primary Dx); [...] Description 06/05/2025 1:45 PM EDT Office Visit [facility] 230 [place] [address] Marisabel Michel MD [address] [place] [address] Scheduled Referrals Name Type Priority Associated Diagnoses [...] documented as of this encounter Care Teams Estate Administrator Relationship Specialty Start Date End Date Marisabel Michel MD [address] [place] [address] PCP - General Family Medicine 09/04/11 documented as of this encounter
--- OUTSIDE RECORDS SUMMARY | 2025-04-07 14:13 | XMS_ITS | Encounter Summary ---
Author Organization [employer] Address 75 [facility] 7t [place] [address] Care Team Providers Care Beater Operator Name Role Phone aMrisabel Michel MD Primary Care Provider [phone] Reason for Referral * Imaging (Urgent) - Canceled Specialty Diagnoses / Procedures Referred By Vee t Referred To Contact Radiology Diagnoses Elevated erythrocyte sedimentation rate Acute right ankle pain Cellulitis of right leg Procedures MR Ankle w/ and w/o Contrast Right Marisabel Michel MD [address] [place] [address] Phone: tel: fax: [address] Phone: tel: fax: Referral ID Status Reason Start Date Expiration Date V isits Requested Visits Authorized [id number] Canceled 07/19/2024 07/19/2025 1 1 * Imaging (Urgent) - New Request Specialty Diagnoses / Procedures Referred By Contac t Referred To Contact Radiology Diagnoses Elevated erythrocyte sedimentation rate Acute right ankle pain Cellulitis of right leg Procedures MRI LOWER LEG / TIBIA FIBULA RIGHT W WO CONTRAST Marisabel Michel MD [address] [place] [address] Phone: tel: fax: [address] Phone: tel: fax: Referral ID Status Reason Start Date Expiration Date V isits Requested Visits Authorized [id number] New Request 07/19/2024 07/19/2025 1 1 Encounter Details Date Type Department Care Team (Late st Contact Info) Description 07/15/2024 Orders Only [facility] [address] [place] [address] Marisabel Michel MD [address] [place] [address] Elevated erythrocyte sedimentation rate (Primary Dx); Cellulitis [...] Description 06/05/2025 1:45 PM EDT Office Visit [facility] [address] [place] [address] Marisabel Michel MD [address] [place] [address] Scheduled Orders Name Type Priority Associated Diagnoses [...] Vitamin D 25-OH Total 54.6 >30 ng/mL [facility] Comment:Health Based Referen ce Values*< 20 ng/mL Uyyvafmkh98-49 ng/mL Insufficient> 30 ng/mL Sufficient*Ashok SMITH. N [...] ORDERABLES Final Resul t Performing Organization Address City/[facility]/ZIP Co de Phone Number [facility] [address] [place] [phone] * (ABNORMAL) PTH, Intact Without Calcium (08/02/2024 5:05 PM EDT) Parathyroid Hormone, Intact 78.5(H) 8.7 - 77.1 pg/mL [facility] Blood Venous blood specimen / Unknown 08/02/2024 5:05 PM EDT 08/02/2024 5:10 PM EDT Marisabel Michel MD LAB BLOOD ORDERABLES Final Resul t Performing Organization Address City/[facility]/ZIP Co de Phone Number [facility] [address] [place] [phone] * TSH (08/02/2024 5:05 PM EDT) Thyroid Stimulating Hormone 2.46 0.32 - 4.0 uIU/mL [facility] Comment:TSH 3rd Generation ( [facility]) Blood Venous blood specimen / Unknown 08/02/2024 5:05 PM EDT 08/02/2024 5:10 PM EDT Marisabel Michel MD LAB BLOOD ORDERABLES Final Resul t Performing Organization Address [facility]/ZIP Co de Phone Number [facility] [address] [place] [phone] * (ABNORMAL) Sed Rate by Modified Westergren (08/02/2024 5:05 PM EDT) Erythrocyte Sedimentation Rate 71(H) 0 - 20 MM/HR [facility] Comment:Patients with polycy themia and many hemoglobin abnormalitiesmay have depressed sed rates whereas patients with anemiamay have elevated sed rates. Blood Venous blood specimen / Unknown 08/02/2024 5:05 PM EDT 08/02/2024 5:10 PM EDT us Marisabel Michel MD LAB BLOOD ORDERABLES Final Resul t Performing Organization Address [facility] Co de Phone Number [facility] [address] [place] [phone] * (ABNORMAL) C-reactive Protein (08/02/2024 5:05 PM EDT) C Reactive Protein 1.90(H) < or = 0.50 mg/dL [facility] Blood Venous blood specimen / Unknown 08/02/2024 5:05 PM EDT 08/02/2024 5:10 PM EDT Marisabel Michel MD LAB BLOOD ORDERABLES Final Resul t Performing Organization Address [facility]/ZIP Co de Phone Number [facility] [address] [place] [phone] * T4, Free (07/15/2024 3:24 PM EDT) Free T4 (Free Thyroxine) 1.45 0.71 - 1.85 ng/dL [facility] Blood Venous blood specimen / Unknown 07/15/2024 3:24 PM EDT 07/15/2024 3:26 PM EDT Marisabel Michel MD LAB BLOOD ORDERABLES Final Resul t Performing Organization Address City/State/[facility] Co de Phone Number [facility] [address] [place] [phone] documented in this encounter Visit Diagnoses Diagnosis Elevated erythrocyte sedimentation rate- Primary Elevated sedimentation rate Cellulitis of lower extremity, unspecified laterality Abnormal TSH Fever, unspecified fever cause Acute right ankle pain Cellulitis of right leg documented in this encounter Additional Health Concerns Assessment Noted Time PHQ-9 Depression Total Score: 0 03/29/20 24 3:23 PM EDT documented as of this encounter Care Teams Beater Operator Relationship Specialty Start Date End Date Marisabel Michel MD [address] [place] [address] PCP - General Family Medicine 09/04/11 documented as of this encounter
--- OUTSIDE RECORDS SUMMARY | 2025-04-07 14:13 | XMS_ITS | Encounter Summary ---
Author Organization [employer] Address [address] [facility] [address] 7t [place] [address] Care Team Providers Care It Applications Analyst Name Role Phone Marisabel Michel MD Primary Care Provider [phone] Reason for Visit * Reason Comments Med Refill Encounter Details Date Type Department Care Team ([facility] st Contact Info) Description 11/06/2023 Refill [facility] [address] [place], [place] [phone] Vicky Sage, ANP [address] [place], [place] [phone] Social History Tobacco Use Types Packs/Day Years [...] Description 06/05/2025 1:45 PM EDT Office Visit [facility] [address] [place] [address] Marisabel Michel MD [address] [place] [address] documented as of this encounter Visit Diagnoses Not on filedocumented in this encounter Additional Health Concerns Assessment Noted Time PHQ-9 Depression Total Score: 2 02/25/20 23 1:12 PM EDT documented as of this encounter Care Teams It Applications Analyst Relationship Specialty Start Date End Date Marisabel Michel MD [address] [place] [address] PCP - General Family Medicine 09/04/11 documented as of this encounter
--- OUTSIDE RECORDS SUMMARY | 2025-04-07 14:13 | XMS_ITS | Patient Health Record ---
Author Organization [facility] Address [address] [place] [address] Care Team Providers Care Field Artillery Crewmember Name Role Phone Anand DIOR, Marisabel Primary Care Provider George Hyman Unavailable [phone] Reason For Referral No Information Medications Medication [...] tablet Orally Once a day Active Nystatin 369062 UNIT/ML 4 ml Mouth/Throa t Twice a [...] W/U Status Risk Notes Problem Esophageal reflux (401410729) Esophageal reflux (K21.9) Active confirmed Problem 417204910 Encounter for screening for malignant neoplasm of colon (Z12.11) Active confirmed Problem 775099594 Gastroesophageal reflux disease, esophagitis presence not specified (K21.9) Active confirmed Problem 435085142 Family history o f colon cancer (Z80.0) Active confirmed Problem Benign neoplasm of stomach (39512961) Gastric polyps (K31.7) Active confirmed Problem 45519903 Oropharyngeal dysphagia (R13.12) Active confirmed Problem 616396199 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 Problem Diverticulosis of sigmoid colon (516468136) Diverticulosis of sigmoid colon (K57.30) Active confirmed [...] Insured Coverage Start Date Coverage End Date [facility] [address] [place] [address] [id number] CARL JACK Self - patient is the insured MEDICAID OF [employer] [address] [place] [phone] [id number] CARL JACK Self - patient is the insured Medical (General) History Medical History History ICD Code Alopecia Positive H.pylori serology in 07/2013-Rx' d with PPI and antibiotics Asthma Denies IN,DM,CVA,renal disease Kidney stones-ES[facility] Neg colonoscopy in 2004, [...]
--- OUTSIDE RECORDS SUMMARY | 2025-04-07 14:13 | XMS_ITS ---
Author Organization [facility] Address [address] [place] [address] Care Team Providers Care Special Delivery Messenger Name Role Phone Marisabel Michel Primary Care Provider Yoni Glover Unavailable [phone] Allergies Allergen (clinical drug ingredient) Drug/Non Drug [...] Orally Once a day Active Saline Nasal [place] as needed A ctive SUMAtriptan Succinate Active Naproxen Active Ondansetron HCl Acti ve PriLOSEC OTC Active ProAir HFA as needed Active Proctofoam as needed Active Ipratropium Bluff Active Jock Itch 1 % 1 application [...] Type 2 diabetes mellitus with peripheral angiopathy (206930751) Type 2 diabetes mellitus with diabetic peripheral angiopathy without gangrene (E11.51) Active confirmed Q7(A), Q8(2B), Q9(1B,2C) Problem Acquired hammer toe of right foot (718666343381 9105) Other hammer toe(s) (acquired), right foot (M20.41) Active confirmed Problem Acquired hammer toe of left foot (685873127316 9103) Other hammer toe(s) (acquired), left foot (M20.42) Active confirmed Problem Ulcer of toe of left foot (disorder) (101505813911 77110) Skin ulcer of toe of left foot, limited to breakdown of skin (L97.521) Active confirmed Response to treatment Nonapplicable Vital Signs Height 5ft in 01/30/2025 Weight 178 lbs 01/30/2025 BMI 34.76 kg/m2 01/30/2025 Blood pressure systolic 127 mm Hg 01/31/20 25 Blood pressure diastolic 76 mm Hg 025 Procedures Procedure Date Ordered Date Performed Result Body Sit e 35997-OTMWJWK NAIL, 6 OR MORE 01/30/2025 N/A 40627- Debride <25 sq cm 01/30/2025 N/A 99556-LJRV SKIN LESIONS, 2 TO 4 01/30/2025 N/A Encounters Encounter Location Date Provider Diagnosis [facility] [address] [place] [phone] 01/30/2025 Yoni Bhatt Type 2 diabetes mellitus [...] INSTRUCTIONS.pdf) Pending Test Test Name Order Date 04577-WYJFEUS NAIL, 6 OR MORE 01/30/2025 91894- Debride <25 sq cm 01/30/2025 13697-PSJR SKIN LESIONS, 2 TO 4 01/31/20 25 Next Appt Details Follow Up: 3 Months,To see Gabino Bustillo, Reason: Provider Name:Yoni Bhatt , 05/08/2025 01:30:00 PM, [address] [facility], [address], [place], [phone], Procedure Notes * Category Sub-Category Detail Notes [...] use of a nail nipper and/or dremel-type grinder set up operator, to a more viable healthy nail [...] to maintain effectiveness in symptomatic relief - 10146 Debride skin< 25 sq cm Open wound [...] of the wound post debridement is stable (82358) Keratoma Treatment Parring or Cutting o f [...] instrumentation by the physician of record - 42685, Q8 Progress Notes * Radha JACKDOB: 1 (54 yo F)Acc No.[id number]:01/30/2025 Progress Note Patient:?Radha JACK Provider:?Yoni Bhatt DPM :1970???Age:54 Y???Sex:Female D ate:01/30/2025 Address:[address] [place], [place] [id number] Pcp:Marisabel Michel Subjective: * Chief Complaints: * [...] * Hospitalization/Major Diagno stic Procedure:?ER in [place] 02/2018[facility]- Pain in ankle- negetive ultrasound and x-ray 04[facility] infection 07/19-07/25 * Family History:?Mother: james [...] Gas Relief hydrOXYzine HCl Ibuprofen Ipratropium-Albuterol Ipratropium Bluff Jock Itch 1 % Cream 1 application to affected area Externally Twice a day Ketotifen Fumarate Montelukast Sodium Naproxen Ondansetron HCl PriLOSEC OTC ProAir HFA , Notes to Pharmacist: as neededProctofoam , Notes to Pharmacist: as neededSaline Nasal [place] , Notes to Pharmacist: as neededSUMAtriptan Succinate [...] HCl Taking Ibuprofen Taking Ipratropium-Albuterol Taking Ipratropium Bluff Taking Jock Itch 1 % Cream 1 application to affected area Externally Twice a day Taking Ketotifen Fumarate Taking Montelukast Sodium Taking Naproxen Taking Ondansetron HCl Taking PriLOSEC OTC Taking ProAir HFA , Notes to Pharmacist: as neededTaking Proctofoam , Notes to Pharmacist: as neededTaking Saline Nasal [place] , Notes to Pharmacist: as neededTaking SUMAtriptan [...] mellitus with diabetic peripheral angiopathy without gangrene?Procedure: 15676-GKFE SKIN LESIONS, 2 TO 4 3.?Tinea unguium?Procedure: 33258-TTUOBCN NAIL, 6 OR MORE 4.?Skin ulcer of toe of left foot, limited to breakdown of skin?Procedure: 75239- Debride <25 sq cm Notes: Patient Educated [...] use of a nail nipper and/or dremel-type grinder set up operator, to a more viable healthy nail [...] to maintain effectiveness in symptomatic relief - 62480.?Debride skin< 25 sq cm:?Open wound?Physician of record [...] of the wound post debridement is stable (31363).?Keratoma Treatment:?Parring or Cutting of Benign Hyperkeratotic Lesion(s)?(-56) [...] instrumentation by the physician of record - 16100, Q8.? * Procedure Codes:?92775 DEBRI DE NAIL, 6 OR MORE, Modifiers: XS 67380 ACTIVE WOUND CARE/20 CM OR <, Modifiers: XS 42181 TRIM SKIN LESIONS, 2 TO 4, Modifiers: [...] Bhatt DPM Date:?2024 Generated for Deny lou/Klaudia/David on:?04/07/2025 02:13 PM EDT History and Physical Notes * [...]
--- OUTSIDE RECORDS SUMMARY | 2025-04-07 14:13 | XMS_ITS | Encounter Summary ---
Author Organization [employer] Address [address] 7t [place] [address] Care Team Providers Care Lead Front Desk Agent Name Role Phone Marisabel Michel MD Primary Care Provider [phone] Encounter Details Date Type Department Care Team ([facility] st Contact Info) Description 03/18/2024 Orders Only [facility] [address] [place], [place] [phone] Marisabel Michel MD [address] [place], [place] [phone] Social History Tobacco Use Types Packs/Day Years [...] Description 06/05/2025 1:45 PM EDT Office Visit [facility] [address] [place] [address] Marisabel Michel MD [address] [facility] [place] [address] documented as of this encounter Procedures Procedure Name Priority Date/Time Associated Diagnosis Comments BI MAMMOGRAM SCREENING TOMOSYNTHESIS BILATERAL Routine 03/21/2024 1:10 PM EDT documented in this encounter Results * BI Mammogram Screening Tomosynthesis Bilateral (03/21/2024 1:10 PM EDT) Anatomical Region Laterality Modality Breast Bilateral Mammography 03/21/2024 1:10 PM EDT Narrative 04/17/2024 6:32 AM EDT ? [facility] [place] ? [address] ?[place] [address] ? Mammography Report ? Signed ? Patient: Chuy Vera,Radha ?MR#: ?? [id number] ? : 1970 ?Acct:[id number] ? Age/Sex: 53 / F ?ADM Date: 04/29/24 ? Loc: HO.MAMMO ? Attending Dr: Marisabel Michel MD ? Ordering Physician: Marisabel Michel MD ?Results: 1Negative ? Date of Service: 03/21/24 ?Follow Up: 1 Year From Orig ?? inal Mammogram ? Procedure(s): MM tomosynthesis screening BI ?? Accession Number(s): [id number] ? cc: Marisabel Michel MD ? EXAMINATION: [...] ? DD/DT: //24 1310 ? TD/TT: ? Internal Medicine Nurse: ? Procedure Note Donotuseinterpreter, Image - 04/17/2024 [facility] [address] [place] [address] Mammography Report Signed Patient: Radha KimballMR#: [id number] : 1970Acct:[id number] Age/Sex: 53 / FADM Date: 03/21/24 Loc: HO.MAMMO Attending Dr: Marisabel Michel MD Ordering Physician: Marisabel Michel MDResults: 1Negative Date of Service: 03/21/24Follow Up: 1 Year From Orig inal Mammogram Procedure(s): MM tomosynthesis screening BI Accession Number(s): [id number] cc: Marisabel Michel MD EXAMINATION: MM SCREENING [...] in OV> 04/17/24 0629 DD/ 1310 TD/TT: Internal Medicine Nurse: us Marisabel Michel MD IMG BI PROCEDURES Final Result documented in this encounter Visit Diagnoses Not on filedocumented in this encounter Additional Health Concerns Assessment Noted Time PHQ-9 Depression Total Score: 2 02/25/20 23 1:12 PM EDT documented as of this encounter Care Teams Lead Front Desk Agent Relationship Specialty Start Date End Date Marisabel Michel MD [address] [place] [address] PCP - General Family Medicine 09/04/11 documented as of this encounter
--- OUTSIDE RECORDS SUMMARY | 2025-04-07 14:13 | XMS_ITS | Encounter Summary ---
Author Organization [employer] Address [address] [facility] 7t [place] [address] Care Team Providers Care Needle Control Cheniller Name Role Phone Marisabel Michel MD Primary Care Provider [phone] Reason for Referral * Consultation (Routine) - Closed Specialty Diagnoses / Procedures Referred By Vee carter Referred To Contact Diagnoses Sinusitis, unspecified chronicity, unspecified location Marisabel Michel MD [address] [place] [address] Phone: tel: fax: Jamshid Aly [address] [place] [address] Drive [address] [place], [place] [address] Phone: tel: fax: Referral ID Status Reason Start Date Expiration Date V isits Requested Visits Authorized [id number] Closed Specialty Services Required 04/22/2024 04/22/2025 1 1 Encounter Details Date Type Department Care Team (Late st Contact Info) Description 04/22/2024 Orders Only [facility] [address] [place], [place] [phone] Marisabel Michel MD [address] [place], [place] [phone] Sinusitis, unspecified chronicity, unspecified location (Primary Dx) [...] 1:45 PM EDT Office Visit [facility] [address] [place] [address] Marisabel Michel MD [address] [place] [address] Scheduled Referrals Name Type Priority Associated Diagnoses [...] EDT Narrative 05/10/2024 5:32 PM EDT ? [facility] ?[address] ?[place] [address] ? Ultrasound Report ? Signed ? Patient: Radha Kimball ?MR#: ?? [id number] ? : 1970 ?Acct:[id number] ? Age/Sex: 53 / F ?ADM Date: 05/10/24 ? Loc: HO.XRAY ? Attending Dr: Marisabel Michel MD ? Ordering Physician: Marisabel Michel MD ?? Date of Service: 05/10/24 ?? Procedure(s): US venous duplex LE RT ?? Accession Number(s): [id number] ? cc: Marisabel Michel MD ? EXAMINATION: [...] 1728 ? DD/ 1648 ? TD/TT: ? Audit Analyst: BA ? Procedure Note Donotuseinterpreter, Image - 05/10/[address] [address] Ultrasound Report Signed Patient: Radha KimballMR#: [id number] : 1970Acct:[id number] Age/Sex: 53 / FADM Date: 05/10/24 Loc: HO.[place] Attending Dr: Marisabel Michel MD Ordering Physician: Marisabel Michel MD Date of Service: 05/10/24 Procedure(s): US venous duplex LE RT Accession Number(s): [id number] cc: Marisabel Michel MD EXAMINATION: US VENOUS [...] in OV> 05/10/24 1728 DD/ 1648 TD/TT: Audit Analyst: JUANITA Marisabel Michel MD IMG US PROCEDURES Final Result documented in this encounter Visit Diagnoses Diagnosis Sinusitis, unspecified chronicity, unspecified location- Primary documented in this encounter Additional Health Concerns Assessment Noted Time PHQ-9 Depression Total Score: 0 03/29/20 24 3:23 PM EDT documented as of this encounter Care Teams Needle Control Cheniller Relationship Specialty Start Date End Date Marisabel Michel MD [address] [place] [address] PCP - General Family Medicine 09/04/11 documented as of this encounter
--- OUTSIDE RECORDS SUMMARY | 2025-04-07 14:13 | XMS_ITS | Encounter Summary ---
Author Organization [employer] Address [address] 7[address] [place] [address] Care Team Providers Care Fermentation Scientist Name Role Phone Mraisabel Michel MD Primary Care Provider [phone] Reason for Visit * Reason Comments Med Refill Encounter Details Date Type Department Care Team ([facility] st Contact Info) Description 10/08/2023 Refill [facility] [address] [place], [place] [phone] Angela Kirkland DO [address] [place], [place] [phone] Osteopenia, unspecified location Social History Tobacco Use [...] the past 12 months, has t he [employer] 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 or 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 company threatened to shut [...] Description 06/05/2025 1:45 PM EDT Office Visit [facility] [address] [place] [address] Marisabel Michel MD [address] [place] [address] documented as of this encounter Visit Diagnoses Diagnosis Osteopenia, unspecified location documented in this encounter Additional Health Concerns Assessment Noted Time PHQ-9 Depression Total Score: 2 02/25/20 23 1:12 PM EDT documented as of this encounter Care Teams Fermentation Scientist Relationship Specialty Start Date End Date Marisabel Michel MD [address] [place] [address] PCP - General Family Medicine 09/04/11 documented as of this encounter
--- OUTSIDE RECORDS SUMMARY | 2025-04-07 14:13 | XMS_ITS ---
Author Organization [facility] Address [address] [place] [address] Care Team Providers Care Vice President Of Business Development Name Role Phone Marisabel Michel Primary Care Provider UnavailYoni Deng Unavailable [phone] Halle Bustillo Unavailable [phone] REASON FOR VISIT Seen Sooner Encounters En[facility] [address] [facility]/03/[facility] Halle Bustillo Plan Of Treatment Next Appt Details Provider Name:Yoni Bhatt , 05/08/2025 01:30:00 PM, [address] [place] [address], [phone], Progress Notes * Radha JACKDOB: [birth year] (54 yo F)Acc No.[id number]:03/03/2025 Progress Note Patient:?Radha JACK Provider:?Halle Bustillo DPM :1970???Age:54 Y???Sex:Female D ate:03/03/2025 Address:[address] [place] [address] Pcp:Marisabel Michel Subjective: * Chief Complaints: * [...] DPM Date:?0 03/03/2025 Generated for Deny lou/Klaudia/David on:?04/07/2025 02:13 PM EDT
--- OUTSIDE RECORDS SUMMARY | 2025-04-07 14:13 | XMS_ITS | Encounter Summary ---
Author Organization [employer] Address [address] [facility] 7t [place] [address] Care Team Providers Care Outside Food Server Name Role Phone Marisabel Michel MD Primary Care Provider [phone] Encounter Details Date Type Department Care Team ([facility] st Contact Info) Description 10/04/2024 Orders Only [facility] [address] [place] [address] Lexie Lopez, PharmD [address] [place] [address] Social History Tobacco Use Types Packs/Day Years [...] Description 06/05/2025 1:45 PM EDT Office Visit [facility] [address] [place] [phone] Marisabel Michel MD [address] [place] [address] documented as of this encounter Visit Diagnoses Not on filedocumented in this encounter Additional Health Concerns Assessment Noted Time PHQ-9 Depression Total Score: 0 03/29/20 24 3:23 PM EDT documented as of this encounter Care Teams Outside Food Server Relationship Specialty Start Date End Date Marisabel Michel MD [address] [place] [phone] PCP - General Family Medicine 09/04/11 documented as of this encounter
--- OUTSIDE RECORDS SUMMARY | 2025-04-07 14:13 | XMS_ITS | Encounter Summary ---
Author Organization [employer] Address [address] [facility] [address] 7[address] [place] [address] Care Team Providers Care Hammer Fitter Name Role Phone Marisabel Michel MD Primary Care Provider [phone] Encounter Details Date Type Department Care Team ([facility] st Contact Info) Description 06/30/2024 Orders Only [facility] [address] [place], [place] [phone] Marisabel Michel MD [address] [place] [address] Prediabetes (Primary Dx); Primary hypertension; Acute right [...] Description 06/05/2025 1:45 PM EDT Office Visit [facility] [address] [place], [place] [phone] Marisabel Michel MD [address] [place], [place] [phone] documented as of this encounter Procedures Procedure [...] PM EDT) Hemoglobin A1c 6.1(H) <6.0 % [facility] Comment:Hemoglobin A1C Refer ence Range Adults: 4.8 - 6.0 % Non diabetic: < 6.0 % Goal: < 7.0 %Additional Action Suggested: > 8.0 %Note: Hemoglobin A1c results are invalid for patients with abnormal amounts of HbF. Blood transfusions may impact the HbA1c concentration in the patient sample. Estimated Average Glucose 128 mg/dL [facility] Comment:eAG = Estimated ave rage glucose which is %A1C expressed asaverage glucose, using the formula of the J9Q-AeirzjwRfenxwk Glucose study (ADAG), Diabetes Care, Vol.31,#8,Jun. 2007 Blood Venous blood specimen / Unknown 08/02/2024 5:05 PM EDT 08/02/2024 5:10 PM EDT us Marisabel Michel MD LAB BLOOD ORDERABLES Final Resul t Performing Organization Address City/[facility]/ZIP Co de Phone Number [facility] [address] [place] [phone] * (ABNORMAL) TSH with Reflex to Free T4 (07/15/2024 3:24 PM EDT) TSH reflex Free T4 0.19(L) 0.32 - 4.0 uIU/mL [facility] Blood 07/15/2024 3:24 PM EDT 07/15/2024 3:26 PM EDT us Marisabel Michel MD LAB BLOOD ORDERABLES Final Resul t [facility] [address] [place] [phone] * (ABNORMAL) Sed Rate by Modified Westergren (07/15/2024 3:24 PM EDT) Erythrocyte Sedimentation Rate 71(H) 0 - 20 MM/HR [facility] Comment:Patients with polycy themia and many hemoglobin abnormalitiesmay have depressed sed rates whereas patients with anemiamay have elevated sed rates. Blood Venous blood specimen / Unknown 07/15/2024 3:24 PM EDT 07/15/2024 3:26 PM EDT Marisabel Michel MD LAB BLOOD ORDERABLES Final Resul t Performing Organization Address [facility] Co de Phone Number [facility] [address] [place] [phone] * (ABNORMAL) C-reactive Protein (07/15/2024 3:24 PM EDT) C Reactive Protein 18.68(H) < or = 0.50 mg/dL [facility] Blood Venous blood specimen / Unknown 07/15/2024 3:24 PM EDT 07/15/2024 3:26 PM EDT Marisabel Michel MD LAB BLOOD ORDERABLES Final Resul t Performing Organization Address [facility] de Phone Number [facility] [address] [place] [phone] * Uric acid (07/15/2024 3:24 PM EDT) Uric Acid 4.8 2.4 - 5.7 mg/dL [facility] Blood Venous blood specimen / Unknown 07/15/2024 3:24 PM EDT 07/15/2024 3:26 PM EDT Marisabel Michel MD LAB BLOOD ORDERABLES Final Resul t Performing Organization Address [facility] Co de Phone Number [facility] [address] [place] [phone] * (ABNORMAL) Comprehensive Metabolic Panel (07/15/2024 3:24 PM EDT) Sodium 141 135 - 145 mmol/L [facility] Potassium 3.5 3.3 - 5.1 mmol/L [facility] Chloride 105 96 - 108 mmol/L [facility] Carbon Dioxide 20(L) 22 - 29 mmol/L [facility] Anion Gap 20 12 - 20 [facility] Urea Nitrogen (BUN) 13 9 - 16 mg/dL [facility] Creatinine, Serum 0.81 0.5 - 1.4 mg/dL [facility] Estimated Glomerular Filt Rate >60 [facility] Comment:NOTE: For -Am erican individuals, multiply the result by 1.210.Chronic Kidney Disease: Estimated GFR < 60 mL/min/1.72v8Trxuox Kidney Disease: Estimated GFR < 15 mL/min/1.73m2 Glucose 91 60 - 115 mg/dL [facility] Calcium 10.5(H) 8.4 - 10.2 mg/dL [facility] Bilirubin, Total 0.4 0.0 - 1.0 mg/dL [facility] Aspartate Amino Transferase 17 5 - 31 U/L [facility] Alanine Aminotransferase 18 0 - 31 U/L [facility] Total Protein 8.5(H) 6.5 - 8.0 g/dL [facility] Albumin Level 4.3 3.5 - 5.0 g/dL [facility] Alkaline Phosphatase 87 39 - 117 U/L [facility] Blood Venous blood specimen / Unknown 07/15/2024 3:24 PM EDT 07/15/2024 3:26 PM EDT us Marisabel Michel MD LAB BLOOD ORDERABLES Final Resul t [facility] [address] [place] [phone] [phone] * (ABNORMAL) CBC auto differential (07/15/2024 3:24 PM EDT) White Blood Count 8.9 4.8 - 10.8 X10*3/uL [facility] Red Blood Count 4.49 4.20 - 5.50 X10*6/uL [facility] Hemoglobin 12.9 12.0 - 16.0 g/dl [facility] Hematocrit 39.1 37.0 - 47.0 % [facility] Mean Corpuscular Volume 87.1 80.0 - 98.0 fL [facility] Mean Corpuscular Hemoglobin 28.7 27.0 - 33.0 pg [facility] Mean Corpuscular HGB Conc 33.0 31.0 - 35.0 g/dl [facility] Red Cell Distribution Width 13.7 11.0 - 16.0 % [facility] Platelet Count 223 160 - 400 X10*3/uL [facility] Mean Platelet Volume 13.1(H) 9.4 - 12.3 fL [facility] Neutrophils Percent Auto 68.4 45 - 73 % [facility] Imm Gran Pct Auto 0.6(H) 0.0 - 0.4 % [facility] Lymphocytes Percent Auto 17.3(L) 20 - 40 % [facility] Monocytes Percent Auto 10.3 2 - 11 % [facility] Eosinophils Percent Auto 3.1 0 - 4 % [facility] Basophils Percent Auto 0.3 0 - 2 % [facility] NRBC Pct Auto 0.0 0.0 - 0.2 /100WBC [facility] Neutrophils Absolute Auto 6.1 2.0 - 8.3 x10*3/uL [facility] Imm Gran Abs Auto 0.05(H) 0.00 - 0.03 X10*3/uL [facility] Lymphocytes Absolute Auto 1.6 1.2 - 4.9 X10*3/uL [facility] Monocytes Absolute Auto 0.9 0.1 - 1.2 X10*3/uL [facility] Eosinophils Absolute Auto 0.3 0.0 - 0.4 X10*3/uL [facility] Basophils Absolute Auto 0.0 0.0 - 0.2 X10*3/uL [facility] NRBC Abs Auto 0.000 0.0 - 0.012 X10*3/uL [facility] Blood Venous blood specimen / Unknown 07/15/2024 3:24 PM EDT 07/15/2024 3:26 PM EDT us Marisabel Michel MD LAB BLOOD ORDERABLES Edited Resu lt - Final [facility] [address] [place] [phone] * VASC Lower Extremity Venous Duplex Bilateral (07/15/2024 2:00 PM EDT) 07/15/2024 2:00 PM EDT Narrative [facility] - 07/15/2024 2:49 PM EDT ? [facility] ?[address] ?[place] [address] ? Ultrasound Report ? Signed ? Patient: Radha Kimball ?MR#: ?? [id number] ? : 1970 ?Acct:[id number] ? Age/Sex: 53 / F ?ADM Date: 07/15/24 ? Loc: HO.US ? Attending Dr: Sebastian Matta MD ? Ordering Physician: Sebastian Matta MD ?? Date of Service: 07/15/24 ?? Procedure(s): US venous duplex LE BI ?? Accession Number(s): [id number] ? cc: Sebastian Matta MD; Marisabel Michel [...] DD/ 1400 ? TD/TT: 07/15/24 1420 ? Smelter Operator: ? Procedure Note Donthiago, Image - 07/15/2024 [place] [address] Ultrasound Report Signed Patient: Radha Kimball#: [id number] : 1970Acct:[id number] Age/Sex: 53 / FADM Date: 07/15/24 Loc: HO.US Attending Dr: Sebastian Matta MD Ordering Physician: Sebastian Matta MD Date of Service: 07/15/24 Procedure(s): US venous duplex LE BI Accession Number(s): [id number] cc: Sebastian Matta MD; Marisabel Michel MD [...] 07/15/24 1445 DD/ 1400 TD/TT: 07/15/24 1420 Smelter Operator: [facility] External Provider CV VASC ULAR PROCEDURES Final Result Performing Organization Address City/State/[facility] Co de Phone Number [facility] [address] [place] [phone] documented in this encounter Visit Diagnoses Diagnosis Prediabetes- Primary Other abnormal glucose Primary hypertension Unspecified essential hypertension Acute right ankle pain Fever, unspecified fever cause documented in this encounter Additional Health Concerns Assessment Noted Time PHQ-9 Depression Total Score: 0 03/29/20 24 3:23 PM EDT documented as of this encounter Care Teams Hammer Fitter Relationship Specialty Start Date End Date Marisabel Michel MD [address] [place] [phone] PCP - General Family Medicine 09/04/11 documented as of this encounter
--- OUTSIDE RECORDS SUMMARY | 2025-04-07 14:13 | XMS_ITS | Encounter Summary ---
Author Organization [employer] Address [address] [facility] [address] [place] [address] Care Team Providers Care Woodwork Salvage Inspector Name Role Phone Marisabel Michel MD Primary Care Provider [phone] Encounter Details Date Type Department Care Team (Late st Contact Info) Description 08/05/2024 Orders Only [facility] MED[facility] [address] [place], [place] [phone] Marisabel Michel MD [address] [place] [address] Acute right ankle pain (Primary Dx); Cellulitis [...] PM EDT Office Visit [facility] [address] [place], [place] [phone] Marisabel Michel MD [address] [place] [address] Scheduled Orders Name Type Priority [...] Sedimentation Rate 56(H) 0 - 20 MM/HR [facility] Comment:Patients with polycy themia and many hemoglobin abnormalitiesmay have depressed sed rates whereas patients with anemiamay have elevated sed rates. Blood Venous blood specimen / Unknown 08/30/2024 4:50 PM EDT 08/30/2024 5:01 PM EDT us Marisabel Michel MD LAB BLOOD ORDERABLES Final Resul t [facility] [address] [place] [phone] * (ABNORMAL) Basic Metabolic Panel (08/30/2024 4:50 PM EDT) Sodium 140 135 - 145 mmol/L [facility] Potassium 3.6 3.3 - 5.1 mmol/L [facility] Chloride 104 96 - 108 mmol/L [facility] Carbon Dioxide 25 22 - 29 mmol/L [facility] Anion Gap 15 12 - 20 [facility] Urea Nitrogen (BUN) 16 9 - 16 mg/dL [facility] Creatinine, Serum 0.77 0.5 - 1.4 mg/dL [facility] Estimated Glomerular Filt Rate >60 [facility] Comment:NOTE: For -Am erican individuals, multiply the result by 1.210.Chronic Kidney Disease: Estimated GFR < 60 mL/min/1.34q4Gcyhby Kidney Disease: Estimated GFR < 15 mL/min/1.73m2 Glucose 93 60 - 115 mg/dL [facility] Calcium 10.3(H) 8.4 - 10.2 mg/dL [facility] Blood Venous blood specimen / Unknown 08/30/2024 4:50 PM EDT 08/30/2024 5:01 PM EDT Marisabel Michel MD LAB BLOOD ORDERABLES Final Resul t Performing Organization Address City/[facility] Co de Phone Number [facility] [address] [place] [phone] * Magnesium (08/30/2024 4:50 PM EDT) Magnesium 2.3 1.6 - 2.6 mg/dL [facility] Blood Venous blood specimen / Unknown 08/30/2024 4:50 PM EDT 08/30/2024 5:01 PM EDT Marisabel Michel MD LAB BLOOD ORDERABLES Final Resul t Performing Organization Address [facility] de Phone Number [facility] [address] [place] [phone] * (ABNORMAL) Reticulocyte Count (08/30/2024 4:50 PM EDT) Reticulocytes Absolute 0.095 0.026 - 0.095 X10*6/uL [facility] Immature Retic Fraction 8.3 3.0 - 15.9 % [facility] Retic HGB Equivalent 31.7 30.0 - 35.0 pg [facility] Reticulocyte Percent 2.1(H) 0.5 - 1.8 % [facility] Blood Venous blood specimen / Unknown 08/30/2024 4:50 PM EDT 08/30/2024 5:01 PM EDT Marisabel Michel MD LAB BLOOD ORDERABLES Final Resul t Performing Organization Address [facility]/ZIP Co de Phone Number [facility] [address] [place] [phone] * (ABNORMAL) Iron And Total Iron Binding Capacity (08/30/2024 4:50 PM EDT) Iron 38 30 - 160 mcg/dL [facility] Total Iron Binding Capacity 206(L) 228 - 428 mcg/dL [facility] Percent Iron Saturation 18 15 - 50 % [facility] Unsaturated Iron Binding 168 ug/dL [facility] Blood Venous blood specimen / Unknown 08/30/2024 4:50 PM EDT 08/30/2024 5:01 PM EDT Marisabel Michel MD LAB BLOOD ORDERABLES Final Resul t Performing Organization Address [facility] de Phone Number [facility] [address] [place] [phone] * (ABNORMAL) Ferritin (08/30/2024 4:50 PM EDT) Ferritin 283(H) 10 - 250 ng/mL [facility] Blood Venous blood specimen / Unknown 08/30/2024 4:50 PM EDT 08/30/2024 5:01 PM EDT Marisabel Michel MD LAB BLOOD ORDERABLES Final Resul t Performing Organization Address [facility] Co de Phone Number [facility] [address] [place] [phone] * (ABNORMAL) C-reactive Protein (08/30/2024 4:50 PM EDT) C Reactive Protein 1.83(H) < or = 0.50 mg/dL [facility] Blood Venous blood specimen / Unknown 08/30/2024 4:50 PM EDT 08/30/2024 5:01 PM EDT us Marisabel Michel MD LAB BLOOD ORDERABLES Final Resul t [facility] [address] [place], [place] [phone] * (ABNORMAL) CBC auto differential (08/30/2024 4:50 PM EDT) White Blood Count 9.6 4.8 - 10.8 X10*3/uL [facility] Red Blood Count 4.49 4.20 - 5.50 X10*6/uL [facility] Hemoglobin 12.8 12.0 - 16.0 g/dl [facility] Hematocrit 39.2 37.0 - 47.0 % [facility] Mean Corpuscular Volume 87.3 80.0 - 98.0 fL [facility] Mean Corpuscular Hemoglobin 28.5 27.0 - 33.0 pg [facility] Mean Corpuscular HGB Conc 32.7 31.0 - 35.0 g/dl [facility] Red Cell Distribution Width 13.5 11.0 - 16.0 % [facility] Platelet Count 248 160 - 400 X10*3/uL [facility] Mean Platelet Volume 11.9 9.4 - 12.3 fL [facility] Neutrophils Percent Auto 70.8 45 - 73 % [facility] Imm Gran Pct Auto 0.8(H) 0.0 - 0.4 % [facility] Lymphocytes Percent Auto 17.2(L) 20 - 40 % [facility] Monocytes Percent Auto 6.7 2 - 11 % [facility] Eosinophils Percent Auto 4.0 0 - 4 % [facility] Basophils Percent Auto 0.5 0 - 2 % [facility] NRBC Pct Auto 0.0 0.0 - 0.2 /100WBC [facility] Neutrophils Absolute Auto 6.8 2.0 - 8.3 x10*3/uL [facility] Imm Gran Abs Auto 0.08(H) 0.00 - 0.03 X10*3/uL [facility] Lymphocytes Absolute Auto 1.7 1.2 - 4.9 X10*3/uL [facility] Monocytes Absolute Auto 0.6 0.1 - 1.2 X10*3/uL [facility] Eosinophils Absolute Auto 0.4 0.0 - 0.4 X10*3/uL [facility] Basophils Absolute Auto 0.1 0.0 - 0.2 X10*3/uL [facility] NRBC Abs Auto 0.000 0.0 - 0.012 X10*3/uL [facility] Blood Venous blood specimen / Unknown 08/30/2024 4:50 PM EDT 08/30/2024 5:01 PM EDT us Marisabel Michel MD LAB BLOOD ORDERABLES Final Resul t [facility] [address] [place] [phone] documented in this encounter Visit Diagnoses Diagnosis Acute right ankle pain- Primary Cellulitis of right lower leg Anemia, unspecified type Hypokalemia Hypopotassemia documented in this encounter Additional Health Concerns Assessment Noted Time PHQ-9 Depression Total Score: 0 03/29/20 24 3:23 PM EDT documented as of this encounter Care Teams Woodwork Salvage Inspector Relationship Specialty Start Date End Date Marisabel Michel MD [address] [place] [phone] PCP - General Family Medicine 09/04/11 documented as of this encounter
--- OUTSIDE RECORDS SUMMARY | 2025-04-07 14:13 | XMS_ITS | Encounter Summary ---
Author Organization [employer] Address [address] [facility] [address] [place] [address] Care Team Providers Care Beach Patrol Lieutenant Name Role Phone Marisabel Michel MD Primary Care Provider [phone] Encounter Details Date Type Department Care Team ([facility] st Contact Info) Description 03/28/2025 Orders Only [facility] MEDICINE [address] [place], [place] [phone] Marisabel Michel MD [address] [place], [place] [phone] Prediabetes (Primary Dx); Screening for lipid disorders; [...] 1:45 PM EDT Office Visit [facility] [address] [place] [address] Marisabel Michel MD [address] [place] [address] Scheduled Orders Name Type Priority Associated Diagnoses [...] documented as of this encounter Care Teams Beach Patrol Lieutenant Relationship Specialty Start Date End Date Marisabel Michel MD [address] [place] [address] PCP - General Family Medicine 09/04/11 documented as of this encounter
--- OUTSIDE RECORDS SUMMARY | 2025-04-07 14:13 | XMS_ITS | Encounter Summary ---
Author Organization [employer] Address [address] [facility] [address] [place] [address] Care Team Providers Care Hop Picker Name Role Phone Marisabel Michel MD Primary Care Provider [phone] Encounter Details Date Type Department Care Team ([facility] st Contact Info) Description 09/08/2024 Orders Only [facility] MEDICINE [address] [place], [place] [phone] Marisabel Michel MD [address] [place], [place] [phone] Social History Tobacco Use Types Packs/Day Years [...] 1:45 PM EDT Office Visit [facility] MEDICINE [address] [place] [phone] Marisabel Michel MD [address] [place] [phone] documented as of this encounter Visit Diagnoses Not on filedocumented in this encounter Additional Health Concerns Assessment Noted Time PHQ-9 Depression Total Score: 0 03/29/20 24 3:23 PM EDT documented as of this encounter Care Teams Hop Picker Relationship Specialty Start Date End Date Marisabel Michel MD [address] [place] [phone] PCP - General Family Medicine 09/04/11 documented as of this encounter
--- OUTSIDE RECORDS SUMMARY | 2025-04-07 14:13 | XMS_ITS | Encounter Summary ---
Author Organization [employer] Address [address] [facility] [address] [place] [address] Care Team Providers Care Supervisor Commissary Production Name Role Phone Marisabel Michel MD Primary Care Provider [phone] Encounter Details Date Type Department Care Team ([facility] st Contact Info) Description 09/29/2024 Orders [address] [facility] MED[facility]INE [address] [place], [place] [phone] Marisabel Michel MD [address] [place] [address] Social History Tobacco Use Types Packs/Day Years [...] 1:45 PM EDT Office Visit [facility] [address] [place] [address] Marisabel Michel MD [address] [place] [address] documented as of this encounter Visit Diagnoses Not on filedocumented in this encounter Additional Health Concerns Assessment Noted Time PHQ-9 Depression Total Score: 0 03/29/20 24 3:23 PM EDT documented as of this encounter Care Teams Supervisor Commissary Production Relationship Specialty Start Date End Date Marisabel Michel MD [address] [place] [address] PCP - General Family Medicine 09/04/11 documented as of this encounter
--- OUTSIDE RECORDS SUMMARY | 2025-04-07 14:13 | XMS_ITS | Encounter Summary ---
Author Organization [employer] Address [address] [facility] [place] [address] Care Team Providers Care [employer] Auto Repair Teacher Name Role Phone Marisabel Michel MD Primary Care Provider [phone] Encounter Details Date Type Department Care Team ([facility] st Contact Info) Description 04/05/2025 Orders Only [facility] External Provider, [facility] Social History Tobacco Use Types Packs/Day Years [...] Description 06/05/2025 1:45 PM EDT Office Visit [facility] [address] [place], [place] [phone] Marisabel Michel MD [address] [place] [address] documented as of this encounter Procedures Procedure Name Priority Date/Time Associated Diagnosis Comments US RENAL BI Routine 04/05/2025 3:59 PM EDT documented in this encounter Results * US RENAL BI (04/05/2025 3:59 PM EDT) Anatomical Region Laterality Modality Abdomen Ultrasound 04/05/2025 3:59 PM EDT Narrative 04/05/2025 4:00 PM EDT ? [facility] ?[address] ? [place] [id number] ? Ultrasound Report ? Signed ? Patient: Chuy Vera,Radha ?MR#: ?? [id number] ? : 1970 ?Acct:[id number] ? Age/Sex: 54 / F ?ADM Date: 05/14/25 ? Loc: HO.HMGCX ? Attending Dr: Binh Zelaya MD ? Ordering Physician: Binh Zelaya MD ?? Date of Service: 04/05/25 ?? Procedure(s): US renal BI ?? Accession Number(s): [id number] ? cc: Binh Zelaya MD; Marisabel Michel MD ? CLINICAL HISTORY: N20.0 - Calculus of kidney ? US Renal ? Comparison: US/SR - US RENAL BI - 03/29/24 13:24 EDT ? Findings: Right superior pole calculus measuring 7 mm. ?? Left kidney normal size and echotexture, 9.0 cm length. ? No collecting system dilatation of either kidney. Normal color Doppler. ? IMPRESSION: ?? 1. No acute process. ?? 2. Nonobstructing right superior pole renal calculus. ? This document has been electronically signed by: Luci Colon MD on ?? 04/05/2025 15:59:00 ? Dictated By: ?Luci Colon MD ? Signed By: ?<Electronically signed by Luci Colon MD in OV> ? 04/05/25 1600 ? DD/ 1559 ? TD/TT: 04/05/25 1559 ? Fiberglass Autobody Repairer: ? Procedure Note Donotsulaimaninterpreter, Image - 04/05/2025 [facility] [address] [place] [address] [place] [address] Ultrasound Report Signed Patient: Gibson Kimballmagy#: [id number] : 1970Acct:[id number] Age/Sex: 54 / FADM Date: 04/05/25 Loc: HO.HMGCX Attending Dr: Binh Zelaya MD Ordering Physician: Binh Zelaya MD Date of Service: 04/05/25 Procedure(s): US renal BI Accession Number(s): [id number] cc: Binh Zelaya MD; Marisabel Michel MD CLINICAL HISTORY: N20.0 - Calculus of kidney US Renal Comparison: US/SR - US RENAL BI - 03/29/24 13:24 EDT Findings: Right superior pole calculus measuring 7 mm. Left kidney normal size and echotexture, 9.0 cm length. No collecting system dilatation of either kidney. Normal color Doppler. IMPRESSION: 1. No acute process. 2. Nonobstructing right superior pole renal calculus. This document has been electronically signed by: Luci Colon MD on 04/05/2025 15:59:00 Dictated By: Luci Colon MD Signed By: <Electronically signed by Luci Colon MD in OV> 04/05/25 1600 DD/ 58 TD/TT: 04/05/25 1559 Fiberglass Autobody Repairer: [facility] External Provider IMG US PROCEDURES Final Result documented in this encounter Visit Diagnoses Not on filedocumented in this encounter Additional Health Concerns Assessment Noted Time PHQ-9 Depression Total Score: 0 03/29/20 24 3:23 PM EDT documented as of this encounter Care Teams [employer] Auto [employer] Teacher Relationship Specialty Start Date End Date Marisabel Michel MD [address] [place] [phone] PCP - General Family Medicine 09/04/11 documented as of this encounter
--- OUTSIDE RECORDS SUMMARY | 2025-04-07 14:13 | XMS_ITS | Encounter Summary ---
Author Organization [email or web address] Address [address] [facility] 7t [place] [address] Care Team Providers Care Family Service Center Director Name Role Phone Marisabel Michel MD Primary Care Provider [phone] Reason for Referral * Imaging (Urgent) - Closed Specialty Diagnoses / Procedures Referred By Contac t Referred To Contact Radiology Diagnoses Acute pain of right knee Procedures MR Knee w/o Contrast Right Marisabel Michel MD [address] [place] [address] Phone: tel: fax: [facility] [address] [place] [address] Phone: tel: fax: Referral ID Status Reason Start Date Expiration Date Visits Re quested Visits Authorized [id number] Closed 05/18/2024 05/18/2025 1 1 Encounter Details Date Type Department Care Team (Late st Contact Info) Description 05/18/2024 Orders Only [facility] [address] [place], [place] [phone] Marisabel Michel MD [address] [place] [address] Acute pain of right knee [...] Description 06/05/2025 1:45 PM EDT Office Visit [facility] [address] [place] [address] Marisabel Michel MD [address] [place] [address] documented as of this encounter Procedures Procedure Name Priority Date/Time Associated Diagnosis Comments MR KNEE WO CONTRAST RIGHT Urgent 05/25/2024 3:33 PM EDT Acute pain of right knee documented in this encounter Results * MR Knee w/o Contrast Right (05/25/2024 3:33 PM EDT) Anatomical Region Laterality Modality Magnetic Resonan ce 05/25/2024 3:33 PM EDT Narrative 05/25/2024 4:16 PM EDT ? [facility] ?[address] ?[place] [address] ? Magnetic Resonance Report ? Signed ? Patient: Radha Kimball ?MR#: ?? [id number] ? : 1970 ?Acct:[id number] ? Age/Sex: 53 / F ?ADM Date: 05/25/24 ? Loc: HO.MRI ? Attending Dr: Marisabel Michel MD ? Ordering Physician: Marisabel Michel MD ?? Date of Service: 05/25/24 ?? Procedure(s): MR knee RT wo con ?? Accession Number(s): [id number] ? cc: Marisabel Michel MD ? EXAMINATION: [...] 05/25/243 ? DD/ 1533 ? TD/TT: ? Interrelated Special Education Teacher: DM ? Procedure Note Clarence, Sana - 05/25/2024 [place] [address] Magnetic Resonance Report Signed Patient: Radha Kimball#: [id number] : 1970Acct:[id number] Age/Sex: 53 / FADM Date: 05/25/24 Loc: HO.MRI Attending Dr: Marisabel Michel MD Ordering Physician: Marisabel Michel MD Date of Service: 05/25/24 Procedure(s): MR knee RT wo con Accession Number(s): [id number] cc: Marisabel Michel MD EXAMINATION: MR KNEE [...] MD inOV> 05/25/24 1613 DD/ 1533 TD/TT: Interrelated Special Education Teacher: SANDHYA us Marisabel Michel MD IMG MRI PROCEDURES Final Result documented in this encounter Visit Diagnoses Diagnosis Acute pain of right knee- Primary Primary hypertension Unspecified essential hypertension documented in this encounter Additional Health Concerns Assessment Noted Time PHQ-9 Depression Total Score: 0 03/29/20 24 3:23 PM EDT documented as of this encounter Care Teams Family Service Center Director Relationship Specialty Start Date End Date Marisabel Michel MD [address] [place] [phone] PCP - General Family Medicine 09/04/11 documented as of this encounter
--- OUTSIDE RECORDS SUMMARY | 2025-04-07 14:13 | XMS_ITS | Encounter Summary ---
Author Organization [employer] Address [address] [facility] [place] [address] Care Team Providers Care Paper Products Machine Operator Name Role Phone Marisabel Michel MD Primary Care Provider [phone] Encounter Details Date Type Department Care Team ([facility] st Contact Info) Description 08/23/2024 Orders Only [facility] [address] [place], [place] [phone] Marisabel Michel MD [address] [place], [place] [phone] Social History Tobacco Use Types Packs/Day Years [...] 06/05/2025 1:45 PM EDT Office Visit [facility] [address] [place] [phone] Marisabel Michel MD [address] [place] [address] documented as of this encounter Visit Diagnoses Not on filedocumented in this encounter Additional Health Concerns Assessment Noted Time PHQ-9 Depression Total Score: 0 03/29/20 24 3:23 PM EDT documented as of this encounter Care Teams Paper Products Machine Operator Relationship Specialty Start Date End Date Marisabel Michel MD [address] [place] [id number] PCP - General Family Medicine 09/04/11 documented as of this encounter
--- OUTSIDE RECORDS SUMMARY | 2025-04-07 14:14 | XMS_ITS | Encounter Summary ---
Author Organization [employer] Address [address] [facility] 7t [place] [address] Care Team Providers Care Cigar Inspector Name Role Phone Marisabel Michel MD Primary Care Provider [phone] Encounter Details Date Type Department Care Team (Late st Contact Info) Description 06/30/2023 Abstract [facility] [address] [place] [phone] Marisabel Michel MD [address] [place] [phone] Social History Tobacco Use Types Packs/Day Years [...] 1:45 PM EDT Office Visit [facility] [address] [place] [address] [phone] Marisabel Michel MD [address] [place] [address] [phone] documented as of this encounter Procedures Procedure [...] documented as of this encounter Care Teams Cigar Inspector Relationship Specialty Start Date End Date Marisabel Michel MD [address] [place] [address] PCP - General Family Medicine 09/04/11 documented as of this encounter
--- OUTSIDE RECORDS SUMMARY | 2025-04-07 14:14 | XMS_ITS | Encounter Summary ---
Author Organization [employer] Address [address] [facility] [address] 7t [place] [address] Care Team Providers Care Certified Surgical Technologist Name Role Phone Marisabel Michel MD Primary Care Provider [phone] Reason for Visit * Reason Onset Date Comments Med Refill 09/15/2023 Encounter Details Date Type Department Care Team ([facility] st Contact Info) Description 09/15/2023 Telephone [facility] [address] [place], [place] [phone] Marisabel Michel MD [address] [place], [place] [phone] Med Refill Social History Tobacco Use Types [...] the past 12 months, has t he [employer] gas, oil or water company threatened to [...] Description 06/05/2025 1:45 PM EDT Office Visit [facility] [address] [place] [phone] Marisabel Michel MD [address] [place] [address] documented as of this encounter Visit Diagnoses Not on filedocumented in this encounter Additional Health Concerns Assessment Noted Time PHQ-9 Depression Total Score: 2 02/25/20 23 1:12 PM EDT documented as of this encounter Care Teams Certified Surgical Technologist Relationship Specialty Start Date End Date Marisabel Michel MD [address] [place] [phone] PCP - General Family Medicine 09/04/11 documented as of this encounter
--- OUTSIDE RECORDS SUMMARY | 2025-04-07 14:14 | XMS_ITS | Data Portability ---
Author Organization [employer], [employer] Address [address] [place] [address] Care Team Providers Care Collar Turner Operator Name Role Phone HIM CCA OTHER DENA KAN Primary Care Provider [phone] Assessment Encounter Date Assessment Date Assessment LastModified by Organization Details LastModified Time 06/26/2024 06/26/2024 As noted, we were called to see this patient regarding concerns of fever. Evaluation in the field was performed by my folder seamer automatic colleague, as noted above, I provided real-time [...] worsening flank pain, rigors, worsening abdominal pain [email or web address] Not available 06/26/2024 19:34:52 03/16/2025 03/16/2025 I provided real -time medical direction via phone for this encounter and was available for additional phone-based assistance as needed. I have reviewed and agree with the Assessment and Plan as documented by the Semiconductor Wafers Tester. Patient given the opportunity to ask questions. Our service contacted for an assessment of: Hematuria and back pain radiating to the right flank. As per above, patient with approximately 24 hours of Abdominal and back pain radiating to the right flank. Denies dysuria, frequency. does have a history of UTIs. Denies fever, chills . Per folder seamer automatic on the scene, Vital signs are stable [...] assessment and plan as documented by the folder seamer automatic. I provided real-time medical direction for this [...] Ag, QL IA, respiratory specimen 2024 025 [facility], [address] [place] [address], [phone] 5 20:22:13 rapid flu (A+B) 2024 025 [facility], [address] [place] [address], [phone] 5 20:22:27 rapid strep group A, throat 2024 025 [facility], [address] [place] [address], [phone] 5 20:22:43 urinalysis, dipstick 2024 025 [facility], [address] [place] [address], [phone] 5 21:03:36 culture, urine 2024 025 ARTUR [facility] (Centralized Electronic Ordering - All Locations), Patient Can Go To The Location Of Their Choice, [id number] 5 12:07:57 culture, urine 2023 024 [facility]UR [facility] (Centralized Electronic Ordering - All Locations), Patient Can Go To The Location Of Their Choice, [id number] 4 09:59:04 urinalysis, dipstick 2023 024 [email or web address] [facility], [address] [place] [address], [id number] 4 22:16:27 rapid SARS CoV 2 Ag, QL IA, respiratory specimen 2023 024 [email or web address] [facility], [address] [place] [address], [id number] 4 22:16:30 rapid flu (A+B) 2023 024 [email or web address] [facility], [address] [place] [address], [id number] 4 22:16:35 Referral None recorded. Procedures None recorded. Surgeries None recorded. Imaging None recorded. Medication Orders ipratropium 0.5 mg-albutero l 3 mg (2.5 mg base)/3 mL nebulizatio n soln 2024 025 [facility]71, [address] [place], [address], 5 20:06:10 albuterol sulfate 2.5 mg/3 mL (0.083 %) solution for nebulizatio n 2024 025 [facility], [address] [place], [address], 5 20:06:11 ipratropium 0.5 mg-albutero l 3 mg (2.5 mg base)/3 mL nebulizatio n soln 2024 025 [facility], [address] [place], [address], 5 20:06:10 prednisone 10 mg tablet 2024 025 [facility]/Pharmacy #2071, [address] [place], [address], 5 20:08:18 levofloxaci n 500 mg tablet 2024 025 [facility] #2071, [address] [place], [address], 5 19:07:37 levofloxaci n 500 mg tablet 2024 025 [email or web address] [address] [place], [address], 5 19:07:36 cephalexin 500 mg capsule 2023 024 [email or web address] [facility]/Pharmacy #2071, [address] [place], [address], 4 20:10:17 ceftriaxone 1 gram solution for injection 2023 024 [facility]/Pharmacy #2071, [address] [place] [address], [address], 4 19:04:48 lactated Ringers intravenous solution 2023 024 [facility]acy #2071, [address] [place], [address], 4 19:04:48 levofloxaci n 500 mg tablet 2023 024 [facility]armacy #2071, [address] [place], [address], 4 19:15:51 levofloxaci n 500 mg tablet 2023 024 [email or web address] [facility], [address] [place] [address], [address], 4 19:15:51 Patient TargetsNo targets recorded. Patient InstructionsNo instructions recorded. Reason for Referral None Reported. Results Created Date Observation Date Name Description Value Unit Range Abnormal Flag Note LastModifiedBy Organization Detail LastModifiedTime 06/26/2006/28/2024 URINE CULTU REJAYELN urine culture, routine Final report Not Available [facility] ([facility]) [address] [place], [address], 06/28/2024 08:08:50 06/26/2006/28/2024 URINE CULTU REJAYLEN result 1 COMMEN T Mixed uroge nital rimma 50,00 0-100 ,000 colon y formi ng units per mL Not Available [facility] ([facility]) [address] [place], [address], 06/28/2024 08:08:50 03/16/20 25 03/20/2025 URINE CULTU RE, ROUTI NE urine culture, routine Final report abnormal Not Available [facility] ([facility]) [address] [place], [address], 03/20/2025 14:07:03 03/16/20 25 03/20/2025 URINE CULTU [...] ng units per mL Not Available [facility] ([facility]) [address] [place], [address], 03/20/2025 14:07:03 03/16/20 25 03/20/2025 URINE CULTU [...] ng units per mL Not Available [facility] ([facility]) [address] [place], [address], 03/20/2025 14:07:03 03/16/20 25 03/20/2025 URINE CULTU [...] im/Spicer lfa S S Not Available [facility] ([facility]) [address] [facility], [place], [address], 03/20/2025 14:07:03 Result Notes None recorded. Problems Name Problem SNOMED Code Status Onset Date Resolution Date Notes Provider Name and Address Organization Details Recorded Time Asthma 119521943 Active 025 Chhaya Lovett MD [address] [place] [address], [place], [address] , [employer] 03/26/2025 20:06:52 Problem Notes None recorded. Medical Equipment None Reported. Allergies Allergen ID Allergen Name Allergen Category Reaction Reaction Severity Criticality Documentation Date Start Date Code Code System Note Provider Name and Address Organization Details Recorded Time 186 Bactrim medicatio n Not available Not available Not available 01/02/2023 25867 9 RxNorm Not Available [employer] - production 17:39:26 1868 Symbicort medicatio n Not available Not available Not available 01/02/2023 80331 8 RxNorm Not Available [facility] - production [...] /min 137 mm[Hg] 74 mm[Hg] Not Available [employer] 4 18:48:52 Date Recorded Heart rate Body temperature Respiratory rate Oxygen saturation Oxygen saturation in Arterial blood by Pulse oximetry Systolic blood pressure Diastolic blood pressure Provider Name and Address Organization Details Last Updated DateTime 4 90 /min 97.6 [degF] 16 /min 96 % 96 % 90 mm[Hg] 63 mm[Hg] Not Available [employer] 4 18:31:49 Date Recorded Body temperature Oxygen saturation Oxygen saturation in Arterial blood by Pulse oximetry Respiratory rate Heart rate Systolic blood pressure Diastolic blood pressure Provider Name and Address Organization Details Last Updated DateTime 5 97.6 [degF] 95 % 95 % 18 /min 61 /min 134 mm[Hg] 78 mm[Hg] Not Available [employer] 5 19:04:46 Date Recorded Heart rate Oxygen saturation Oxygen saturation in Arterial blood by Pulse oximetry Body weight Body temperature Respiratory rate Body height Systolic blood pressure Diastolic blood pressure Provider Name and Address Organization Details Last Updated DateTime 5 69 /min 94 % 94 % 6803.88 g 98.1 [degF] 16 /min 160.02 cm 140 mm[Hg] 85 mm[Hg] Not Available [employer] 5 20:01:40 Social History None recorded. Functional [...] Marilee Boo MD Main - [facility] [address] [place] [address] 04/26/2022 12:48:38 07/22/2022 11:34:29 Acute urinary tract infection 437763027 N39.0 51 year old female being evaluated for 2 days of dysuria and bilateral flank pain. Per data gathered by folder seamer automatic, patient with normal vital signs, able to tolerate PO, with positive urine dip. Reports last UTI was 3 months ago, felt the same as current symptoms, and was treated with ciprofloxa sam.Will send urine for culture, and empiricall y treat as uncomplica micki with Cipro 250 mg BID x 3 days. [id number] Megan Willard MD [facility] - [address] [phone] 08/23/2022 15:32:23 08/25/2022 14:41:53 COVID-19 047497817 U07.1 COVID (+). mild tachypnea and cough +wheeze. no increased WOB. prescribed paxlovid, deferring oral steroids given unclear benefit in context of covid. recommende d continued adherence to maintenanc e inhalers. 7618 Kenan Hart MD [address] [phone] 12/31/2022 11:46:11 01/02/2023 10:01:19 Increased frequency of urination 088118081 R35.0 This 52-year-ol d female called her PCP today complainin g of dysuria, urinary frequency, back and pelvic pain for several days. Her PCP requested visit by Leslye. She has a history of a neurogenic bladder and frequent UTIs. Her U/A was negative. I ordered a U/C to be sent to [facility]. She will follow-up with her PCP. The patient agreed with this plan. 7935 Froy Chaves MD [facility] - [address] [phone] 01/13/2023 18:35:24 01/15/2023 16:38:46 Pruritus of vagina 91513279 L29.3 Reports that she was seen earlier by [facility] for urinary symptoms. She had a negative urine dip but the culture grew back bacteria. She was treated with Cipro for a week. She continues to have symptoms but now reports vaginal itching. UA reviewed and no evidence of UTI. Will send this for culture, although doubt bacterial process. Will treat empiricall y for vaginal candidiasi s. 8549 Neisha Mario MD [address] [address] 02/04/2023 20:31:29 02/06/2023 11:05:02 Respiratory tract congestion and cough 562915064 R05.9 8770 Geena Slater MD [facility] - [facility] [address] [place] [phone] 02/12/2023 16:08:06 02/16/2023 12:55:21 Cellulitis of lower limb 023478650 L03.119 right lower leg s/p animal scratch [...] to call for re eval at once. [id number] Chhaya Lovett MD [facility] - [facility] [address] [place] [phone] 04/20/2023 16:36:23 04/21/2023 12:00:18 Cellulitis 414619514 L03.90 67849 SANDRA BROUSSARD MD [facility] - [facility] [address] [place] [address] 06/24/2023 15:28:26 06/25/2023 12:16:09 Candidal vulvovaginitis 42557824 B37.31 78232 Froy Chaves MD [facility] - [facility] [address] [place] [phone] 08/21/2023 17:13:09 08/22/2023 11:34:46 Acute cystitis 28655603 N30.01 Patient reports urinary frequency, burning, and urgency consistent with her typical UTI symptoms. No history of MDR infections in the past. No systemic signs/symp toms to suggest sepsis. Plan for empiric treatment and outpatient follow-up as needed. 23439 Froy Chaves MD [facility] - [facility] [address] [place] [phone] 10/12/2023 19:23:25 10/13/2023 10:50:43 Cellulitis of lower limb 603291378 L03.119 Patient reports being scratched (NOT bitten) by the dog, now with some surroundin g erythema. Notably does have some venous stasis changes bilaterall y but with some worsened edema. Given risk of progressio n, will treat empiricall y for cellulitis . Advised close PCP follow-up for wound check. 72211 Hang Olsen MD [facility] - [facility] [address] [place] [phone] 06/26/2024 19:11:26 06/26/2024 22:29:47 Acute urinary tract infection 866297590 N39.0 fever since 06/22, no features of sepsis at this time. Will plan for 5 day treatment w levaquin. 43041 Froy Chaves MD [facility] - [facility] [address] [place] [phone] 07/12/2024 18:48:44 07/12/2024 21:13:42 Cellulitis of right lower limb [id number] 3436721 L03.115 Patient with a history of cellulitis presenting with similar. Slight tachycardi a and low grade temperatur e is concerning for developing infection. Given systemic symptoms, will treat with a dose of ceftriaxon e while awaiting rx from pharmacy. Reviewed return precaution s and discussed low threshold to go to ED if symptoms worsen given potential for sepsis. 94419 Marilee Boo MD [facility] - [facility] [address] [place] [phone] 07/18/2024 18:31:36 07/18/2024 23:37:59 Cellulitis of lower limb 671583381 L03.119 53 year old female being evaluated [...] assessment and plan as documented by the folder seamer automatic. I provided real-time medical direction for this encounter and was immediatel y available to provide additional phone-base d assistance as needed. We discussed the diagnostic uncertaint y of home visits and associated risks. We discussed the need to seek care urgently/e mergently in the setting of any new or worsening symptoms. 15592 Neisha Mario MD [facility] - [facility] [address] [place] [phone] 03/16/2025 19:04:42 03/16/2025 20:50:47 Urinary symptoms 469864004 R39.9 84307 Chhaya Lovett MD [facility] - [facility] [address] [place] [phone] 03/26/2025 20:01:36 03/27/2025 00:17:21 Acute COVID-19 4678544432 U07.1 Asthma 676886062 J45.90 9 Health Concerns Section Related Observation LastModified by Organization Detai ls LastModified Time None Recorded Concern Status LastModified by Organization Details LastModified Time None Recorded Advance Directives Directive None Recorded Payers Insurance Date Sequence Insurance Name Policy Number Policy Cabrera Covered Member ID Cabrera Member ID Guarantor Name 03/16/2025 1 [facility] - DOS PRIOR TO 2023 - DUAL ELIGIBLE (MEDICARE REPLACEMENT/ADV ANTAGE - HMO) Radha Vera [id number] Radha Vera 03/26/2025 1 [facility] - DOS ON OR AFTER 2023 - DUAL ELIGIBLE - LONGTERM OPTIONS AND ONE CARE (MEDICARE REPLACEMENT/ADV ANTAGE - HMO) Radha Vera [id number] Radha Vera Notes Date Note Type Note Provider Name and Address Organization Details Recorded Time 06/26/2024 text/html CRC Nurse Triage Notes (Horace Tran): Chief Complaints: Fever/Chills, Pain PMH: Neurologic (E.G. ALS/MS), COPD/Asthma, Hypertension Allergies: Trimethoprim-Sulfam ethoxazole Comments: Solution Designer verified the member's name//address and phone number. [...] emergency treatment if needed -George Tran RN [employer]iconductor Wafers Tester Organization Information for Franco Huff - [employer] Legal Name: [employer]? Address: [address] [place] [address], Air Director: Bret Champagne MD [facility] No.: [id number] [employer] Wafers Tester POC Test Results from Franco Huff - [...] ................... ................... ................... ................... ................... ................... ........ Semiconductor Wafers Tester Note From Franco Huff: Dispatched to the [...] ................... ........ Disposition: Fulfilled Hang Olsen MD [address] [place] [address],[address], [place], [address], [employer] 06/26/2024 22:16:52 07/12/2024 text/html CRC Nurse Triage Notes (Naomie Ponce): Reason For Request: Patient has leg pain, and feels like her bones hurt. Chief Complaints: Cellulitis PMH: Neurologic (E.G. ALS/MS), COPD/Asthma, Hypertension Allergies: Trimethoprim-Sulfam ethoxazole Comments: Solution Designer verified the member's name//address and phone number. [...] ................... ................... ................... ................... ................... ................... ........ [employer]icon[employer] Wafers Tester Note From Trae Song: Pt reports today [...] ........ Disposition: Fulfilled Froy Chaves MD [address] [facility],[address], [place], [address], [employer] 07/12/2024 20:10:23 07/18/2024 text/html HPI: Call returned to Radha Vera to triage below. Multiple pictures sent via Portal since 07/15. Pt handed phone to Ciarra pt caregiver. No injury to area. Warm to touch. Having pitting edema. Tender to touch. Pain with bearing. Pt was having fever last week. [facility]x and Keflex QID x 4 days. Pt still has 10 capsules left. Pt still having redness and pain. Pt seen by Vascular surgeon and advised elevation and increased lasix to 40mg daily. Per Ciarra no improvement since then. Advised of disposition, agrees to [facility] referral for re-assessment and POCT blood work ................... ................... ................... ................... ................... ................... ................... ........ CRC Nurse Triage Notes (Nydia Tee): Chief Complaints: Cellulitis PMH: Neurologic (E.G. ALS/MS), COPD/Asthma, Hypertension Allergies: Trimethoprim-Sulfam ethoxazole Other Allergies: Budesonide, formeterol, topiramate, oxybutynin Comments: CRC RN did not require any additional information to process this visit. ................... ................... ................... ................... ................... ................... ................... ........ [employer]icon[employer] Wafers Tester Note From Trae Song: I visited Ms Chuy 6 days ago [...] pitting edema. 911 initiated for transport to [facility]. SBAR to [facility]. ................... ................... ................... ................... ................... ................... ................... ........ Disposition: Fulfilled Marilee Boo MD [address] [facility],[address], [place], [address], [employer] 07/18/2024 21:34:52 03/16/2025 text/html CRC Nurse Triage [...] signs of when to seek emergency care. Semiconductor Wafers Tester Organization Information for Sh[employer]om [employer] Legal Name: [employer]? Address: [address] [place] [address], Air Director: Bret Champagne MD [facility] No.: [id number] [employer] Wafers Tester POC Test Results from [employer] Urine Dipstick (18:58:34) Urine leukocytes: 15 CEASR Urine nitrites: + NIT Urine urobilinogen: 0.2 URO Urine protein: 15 PRO Urine pH: 5.0 pH Urine blood: + BLO Urine specific gravity: 1.020 SG Urine ketones: 5 KET Urine bilirubin: 1 REYNALDO Urine glucose: - GLU Attachments uploaded as part of this test result can be found under Documents section. ................... ................... ................... ................... ................... ................... ................... ........ Semiconductor Wafers Tester Note From Shalom Tineo: SC8 dispatched to address listed above for report of a female democrat with UTI symptoms. Arrival on scene, patient was found inside with wage hand seated in wheel chair, alert and oriented x4, patent airway, breathing non labored speaking in complete sentences, skin WPD in no immediate distress. +/= Chest rise. -SOB, -CP, -NVD, -Trauma, -Fever. GCS 15. Abdomen soft but tender on palpation, right sided CVA tenderness present. Service Unit Operator reports that the patient has been having a constant diffuse abdominal pain radiating to the right flank since about Thursday. Service Unit Operator also reports blood present in diaper but unsure of where the blood came from, reports blood subsided yesterday. Service Unit Operator reports patient has history of both UTI and Kidney stones, last one of each being over a year ago. Service Unit Operator reports no recent trauma, fever, chills, SOB, CP, NVD. Service Unit Operator denies any urinary symptoms that were consistent with last UTI but would still like patient to be tested for one. Service Unit Operator reports normal food/fluid intake along with medication compliance. Patient vital signs obtained as noted. Patient able to provide urine sample via clean catch, urine culture obtained for lab sheila send out followed by urine dipstick as noted. [facility] consulted, advised she would send prescription for Levofloxacin for patient to take and provided orders to [facility] for 500mg Levofloxacin PO. Levofloxacin 500mg PO administered to patient without incident, six patient rights verified prior. Red flags discussed with patient and wage hand, advised to call back if patient condition worsens. SC8 Clear. [facility] Lab Orders: urinalysis, dipstick: Performed culture, urine: Performed [facility] Medication Orders: levofloxacin 500 mg tablet: Administered ................... ................... ................... ................... ................... ................... ................... ........ [facility] Consulted: Neisha Mario ................... ................... ................... ................... ................... ................... ................... ........ Disposition: Fulfilled Neisha Mario MD [address] [facility],[address], [place], [address], [employer] 03/16/2025 20:40:28 03/26/2025 text/html CRC Nurse Triage [...] signs of when to seek emergency care. Semiconductor Wafers Tester Organization Information for Sandra Reyes [employer] Legal Name: [employer]? Address: [address] [place] [address], Air Director: Bret Champagne MD CLIA No.: [id number] Semiconductor Wafers Tester POC Test Results from [employer] Rapid COVID antigen (18:42:22) COVID: + Attachments uploaded as part of this test result can be found under Documents section. Rapid influenza antigen (18:42:23) Flu: - Rapid strep test (18:42:24) Strep: - ................... ................... ................... ................... ................... ................... ................... ........ Semiconductor Wafers Tester Note From Sandra Reyes: [facility] makes pt contact. She is wearing a mask and sitting in her walker in the kitchen of the home where she lives w/ family. She is alert and tracking and smiling at [facility]. Pt is generally well-appearing and not in [...] but it has been many years . [facility] swabs pt for COVID/flu and strep A. [...] is noted and no changes are reported. [facility] contacts [facility] and discusses the above. [facility] recommends pt continue w/ supportive care and orders [facility] to administer a duoneb. [facility] administers one duoneb at 8 lpm O2 via nebulizer mask. Pt tolerates treatment well and lung sounds improve and are clear to auscultation bilaterally. She is informed of s/s which require emergency care. [facility] prescribes a 5 day course of prednisone for the pt w/ the instructions to start them tomorrow if she is still feeling the same as she does today. Pt states her verbal understanding of the instructions. MIH is clear. Report completed by JAMES Reyes [id number]. [facility] Lab Orders: rapid SARS CoV 2 Ag, QL IA, respiratory specimen: Performed rapid flu (A+B): Performed rapid strep group A, throat: Performed [facility] Medication Orders: ipratropium 0.5 mg-albuterol 3 mg (2.5 mg base)/3 mL nebulization soln: Administered albuterol sulfate 2.5 mg/3 mL (0.083 %) solution for nebulization: Administered ipratropium 0.5 mg-albuterol 3 mg (2.5 mg base)/3 mL nebulization soln: Administered ................... ................... ................... ................... ................... ................... ................... ........ [facility] Consulted: Chhaya Lovett ................... ................... ................... ................... ................... ................... ................... ........ Disposition: Fulfilled Chhaya Lovett MD [address] [place] [address],[address] FLOOR, [place], [address], [place] PRAMOD GREENE 03/26/2025 20:31:21 OBGyn Episode No OBEpisode recorded.
--- OUTSIDE RECORDS SUMMARY | 2025-04-07 14:14 | XMS_ITS | Encounter Summary ---
Author Organization [employer] Address [address] 7[address] [place] [address] Care Team Providers Care Regional Vice President Surgical Sales Name Role Phone Marisabel Michel MD Primary Care Provider [phone] Reason for Visit * Reason Comments Med Refill Encounter Details Date Type Department Care Team ([facility] st Contact Info) Description 12/11/2024 Refill [facility] MEDICINE [address] [place], [place] [phone] Marisabel Michel MD [address] [place], [place] [phone] Social History Tobacco Use Types Packs/Day Years [...] 06/05/2025 1:45 PM EDT Office Visit [facility] MEDICINE [address] [place] [phone] Marisabel Michel MD [address] [place] [phone] documented as of this encounter Visit Diagnoses Not on filedocumented in this encounter Additional Health Concerns Assessment Noted Time PHQ-9 Depression Total Score: 0 03/29/20 24 3:23 PM EDT documented as of this encounter Care Teams Regional Vice President Surgical Sales Relationship Specialty Start Date End Date Marisabel Michel MD [address] [place] [phone] PCP - General Family Medicine 09/04/11 documented as of this encounter
--- OUTSIDE RECORDS SUMMARY | 2025-04-07 14:14 | XMS_ITS | Clinical Summary ---
Author Organization [employer] Address [address] [facility] 7t [place] [address] Care Team Providers Care Agent Producer Name Role Phone Marisabel Michel MD Primary Care Provider [phone] Allergies Active Allergy Reactions Criticality Noted Date [...] DAY 45 tablet 3 Active sodium chloride (Carbon) 0.65 % nasal spray Administer 1 spray [...] 3 025 Active clotrimazole (Mycelex) 10 MG leonardo TAKE 1 TABLET BY MOUTH THREE TIMES DAILY 90 Leonardo 1 025 Active fluticasone (Flonase) 50 MCG/ACT nasal spray USE 1-2 SPRAYS IN EACH NOSTRIL ONCE PER DAY. SHAKE GENTLY. CLEAN TIP AND REPLACE CAP. 48 mL 1 025 Active ciclopirox (Loprox) 0.77 % cream APLIQUE AL AREA AFECTADA DOS VECES AL MYAH 90 g 025 Active docusate sodium (Colace) 100 MG capsule TAKE 1 CAPSULE BY MOUTH TWICE A DAY 180 capsule 1 025 Active amitriptyline (Elavil) 10 MG tablet TAKE 1 TABLET BY MOUTH AT BEDTIME 90 tablet 3 025 Active COVID-19 At Home Antigen Test kit Use as instructed 2 kit 1 025 Active naproxen (Naprosyn) 375 MG [...] SEA NECESARIO 30 tablet 025 2024 Discontinued naproxen (Naprosyn) 375 MG tablet TAKE 1 TABLET BY MOUTH TWICE A DAY NEEDED 30 tablet 025 2024 Discontinued Active Problems Problem Noted Date Diagnosed Date Acquired hammer toe of left foot 02/18/2025 Assessment & Plan (02/18/2025 5:07 AM EDT): - following with hand tube bender - she is pleased with her new hand tube bender's care - continue following the recommendation from the hand tube bender Acquired hammer toe of right foot 02/18/2025 Assessment & Plan (02/18/2025 5:07 AM EDT): - following with hand tube bender - she is pleased with her new hand tube bender's care - continue following the recommendation from the hand tube bender Ulcer of toe of left foot 02/18/2025 Assessment & Plan (02/18/2025 5:07 AM EDT): - following with hand tube bender - she is pleased with her new hand tube bender's care - continue following the recommendation from the hand tube bender Environmental allergies 10/05/2024 Orthopnea 10/05/2024 Osteoarthritis of [...] / lateral compartment osteoarthritis. - seen by [facility] Ortho on 05/18/24 and was given intraarticular [...] of osteoporosis / osteopenia - Following with hand tube bender; seen yesterday - Evaluate with MRI due [...] PCP and furosemide which was prescribed by support services manager -Continue working on lifestyle modifications -Continue self-monitoring [...] PCP and furosemide which was prescribed by support services manager -Continue working on lifestyle modifications -Continue self-monitoring [...] PCP and furosemide which was prescribed by support services manager -Continue working on lifestyle modifications -Continue self-monitoring [...] (07/01/2023 3:47 PM EDT): -followed by urologist, [facility] seen on 04/07/23, annual f/u -most recent [...] Plan (07/29/2024 10:22 AM EDT): -followed by multicultural services librarian, Dr. Rivers -advised to schedule appointment with Dr. Rivers to evaluate for her cellulitis; possible stasis dermatitis and/or atopic dermatitis. Assessment & Plan (03/08/2023 7:04 PM EDT): -followed by multicultural services librarian, Dr. Rivers Tubular adenoma of colon 03/08/2023 [...] Plan (07/01/2023 3:46 PM EDT): -Followed by Personal Injury Law Specialist. -Cont moisturization. -Leg elevation -Low sodium diet Assessment & Plan (03/08/2023 7:16 PM EDT): Followed by Personal Injury Law Specialist. -Cont moisturization. -Keep legs elevated. 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 Assessment & Plan (06/28/2024 5:46 AM EDT): - bilateral - following with [facility] orthopedic provider - received steroid injection to left knee in January 2023 - received steroid injection to right knee in April 2024 Assessment & Plan (03/08/2023 6:55 PM EDT): - seen by [facility] orthopedic provider on 12/26/22 - received steroid [...] AM EDT): Previously followed by allergy / hse specialist, Dr. Loco, now waiting for an appt with new specialist Evaluated by [facility] in 2022, patient was offered immunotherapy, but had been hesitant Currently following with [facility] pulmonology for both allergy, asthma, and FARTUN Continue cetirizine 10 mg bid Continue montelukast 10 mg daily Continue flonase Assessment & Plan (12/25/2023 6:13 AM EST): Previously followed by allergy / hse specialist, Dr. Loco, now waiting for an appt with new specialist Evaluated by [facility] provider in 2022, patient was offered immunotherapy, but had been hesitant Currently following with [facility] pulmonology for both allergy, asthma, and FARTUN Continue cetirizine 10 mg bid Continue montelukast 10 mg daily Continue flonase Assessment & Plan (03/08/2023 7:14 PM EDT): Previously followed by allergy / hse specialist, Dr. Loco, now waiting for an appt with new specialist Continue cetirizine 10 mg bid Continue montelukast 10 mg daily Continue flonase Assessment & Plan (10/29/2022 2:29 PM EST): ?? Followed by allergy / hse specialist, Dr. Mcelroy ?? Continue cetirizine 10 mg bid ?? Continue montelukast 10 mg daily Asthma 08/29/2015 Assessment & Plan (02/14/2025 9:44 AM EDT): -Previously followed by Dr. Loco, allergy /hse specialist -Currently following with Dr. Pederson [facility] pulmonology -Exacerbation 1-2 times per year -Last exacerbation in November 2020, Rx Prednisone (-Continue Spiriva) - Dr. Loco prescribed, but not mentioned in Dr. Pederson's note -Continue Breo -Continue montelukast -Continue albuterol HFA/neb prn Treatment Hx: Advair, difficulty using Diskus; Pulmicort; Incruse Assessment & Plan (06/28/2024 5:58 AM EDT): -Previously followed by Dr. Loco, allergy /hse specialist -Currently following with Dr. Pederson [facility] pulmonology -Exacerbation 1-2 times per year -Last exacerbation in November 2020, Rx Prednisone (-Continue Spiriva) - Dr. Loco prescribed, but not mentioned in Dr. Pederson's note -Continue Breo -Continue montelukast -Continue albuterol HFA/neb prn Treatment Hx: Advair, difficulty using Diskus; Pulmicort; Incruse Assessment & Plan (03/29/2024 5:07 PM EDT): -Previously followed by Dr. Loco, allergy /hse specialist -Currently following with Dr. Pederson [facility] pulmonology -Exacerbation 1-2 times per year -Last exacerbation in November 2020, Rx Prednisone (-Continue Spiriva) - Dr. Loco prescribed, but not mentioned in Dr. Pederson's note -Continue Breo -Continue montelukast -Continue albuterol HFA/neb prn Treatment Hx: Advair, difficulty using Diskus; Pulmicort; Incruse Assessment & Plan (12/25/2023 6:04 AM EST): -Previously followed by Dr. Loco, allergy /hse specialist -Currently following with Dr. Pederson, [facility] pulmonology -Exacerbation 1-2 times per year -Last exacerbation in November 2020, Rx Prednisone (-Continue Spiriva) - Dr. Loco prescribed, but not mentioned in Dr. Pederson's note -Continue Breo -Continue montelukast -Continue albuterol HFA/neb prn Treatment Hx: Advair, difficulty using Diskus; Pulmicort; Incruse Assessment & Plan (07/01/2023 3:43 PM EDT): -Previously followed by Dr. Loco, allergy /hse specialist -Exacerbation 1-2 times per year -Last exacerbation in November 2020, Rx Prednisone -Continue Spiriva -Continue Breo -Continue Singulair -Continue albuterol HFA/neb prn Treatment Hx: Advair, difficulty using Diskus; Pulmicort; Incruse Assessment & Plan (03/08/2023 6:59 PM EDT): -Previously followed by Dr. Loco, allergy /hse specialist -Exacerbation 1-2 times per year -Last exacerbation in November 2020, Rx Prednisone -Continue Spiriva -Continue Breo -Continue Singulair -Continue albuterol HFA/neb prn Treatment Hx: Advair, difficulty using Diskus; Pulmicort; Incruse Assessment & Plan (10/28/2022 9:38 PM EST): ?? Pinmaker, Dr. Mcelroy, upcoming appt ?? Continue Breo [...] will continue using furosemide judiciously. - patient's test engineer nuclear equipment recommended to double the dose of furosemide, [...] will continue using furosemide judiciously. - patient's test engineer nuclear equipment recommended to double the dose of furosemide, [...] Encounters Date Type Department Care Team Description 04/05/2025 Orders Only [facility] External Provider, [facility] 04/04/2025 Refill [facility] MEDICINE [address] [place] [address] Marisabel Michel MD 03/30/2025 Orders Only [facility] [address] [place] [address] Marisabel Michel MD 03/28/2025 Telephone [facility] [address] [place] [address] Marisabel Michel MD 03/28/2025 Orders Only [facility] [address] [facility] [place] [address] Marisabel Michel MD Prediabetes (Primary Dx); Screening for lipid disorders; Screening for diabetes mellitus; Hypokalemia 03/27/2025 Telephone [facility] [address] [facility] [place], [place] [address] Marisabel Michel MD FYI 03/17/2025 Telephone [facility] [address] [facility] [place] [address] Nilda Trent RN 03/16/2025 Telephone [facility] [address] [facility] [place] [address] Marisabel Michel MD Nurse Triage 03/16/2025 Refill [facility] [address] [facility] [place] [address] Marisabel Michel MD 03/15/2025 Refill [facility] [address] [facility] [place] [address] Clair Lombardi MD 03/12/2025 Refill [facility] [address] [facility] [place] [address] Marisabel Michel MD 03/02/2025 Refill [facility] [address] [facility] [place] [address] Marisabel Michel MD 03/01/2025 Refill [facility] [address] [place] [address] Marisabel Michel MD 02/14/2025 1:00 PM EDT Office Visit [facility] [address] [facility] [place] [address] Marisabel Michel MD Moderate persistent asthma without [...] foot, unspecified ulcer stage (CMS/HCC) 02/14/2025 Telephone [facility] [address] [place] [address] Marisabel Michel MD 02/14/2025 Travel 02/09/2025 Telephone [facility] [address] [place] [address] Marisabel Michel MD chart prep 01/27/2025 Refill [facility] [address] [place] [address] Marisabel Michel MD Allergic rhinitis due to other allergic trigger, unspecified seasonality 01/12/2025 Telephone [facility] [address] [place] [address] Marisabel Michel MD Durable Medical Equipment 01/08/2025 [...] Bivalent 11/05/2022 Pfizer Covid-19 Vaccine 12+ 09/19/2024, Pneumococcal Conjugate PCV 20 12/15/2023 Pneumococcal Polysaccharide [...] Description 06/05/2025 1:45 PM EDT Office Visit [facility] [address] [place], [place] [phone] Marisabel Michel MD [address] [place] [address] Health Maintenance Due Date Last Done Comments CT Colonography 1970 FIT DNA/Cologuard 1970 FIT 1970 FOBT 1970 Sigmoidoscopy 1970 Pap Smear 1991 HPV/Cotest 2000 Depression Screening 03/29/2025 03/29/2024, 03/29/20 24 SDOH Screening 03/29/2025 03/29/2024 Diabetes: Hemoglobin A1C 08/02/2025 024, 12/07/2023, 07/09/2023, Additional history exists Alcohol/Substance Use Screening 09/19/2025 09/19/2024 Tobacco Screening 02/14/2026 02/14/2025 Mammogram 03/21/2026 03/21/2024, 03/02/2023, 02/12/2022, Additional history exists Colonoscopy 06/12/2026 06/12/2021 [...] RENAL BI Routine 04/05/2025 3:59 PM EDT HEMOGLOBIN A1C Routine 08/02/2024 5:05 PM EDT [...] Recently Relevant to Health Maintenance Results * US RENAL BI (04/05/2025 3:59 PM EDT) Anatomical Region Laterality Modality Abdomen Ultrasound 04/05/2025 3:59 PM EDT Narrative 04/05/2025 4:00 PM EDT ? [facility] ?[address] ? [place] [address] ? Ultrasound Report ? Signed ? Patient: Radha Kimball ?MR#: ?? [id number] ? : 1970 ?Acct:[id number] ? Age/Sex: 54 / F ?ADM Date: 04/05/25 ? Loc: HO.HMGCX ? Attending Dr: Binh Zelaya MD ? Ordering Physician: Binh Zelaya MD ?? Date of Service: 04/05/25 ?? Procedure(s): US renal BI ?? Accession Number(s): [id number] ? cc: Binh Zelaya MD; Marisabel Michel [...] DD/ 1559 ? TD/TT: 04/05/25 1559 ? Manager Information: ? Procedure Note Sana Lima - 04/05/2025 [facility] [address] [place], [place] [address] Ultrasound Report Signed Patient: Shani Kimball#: [id number] : 1970Acct:[id number] Age/Sex: 54 / FADM Date: 04/05/25 Loc: HO.HMGCX Attending Dr: Binh Zelaya MD Ordering Physician: Binh Zelaya MD Date of Service: 04/05/25 Procedure(s): US renal BI Accession Number(s): [id number] cc: Binh Zelaya MD; Marisabel Michel MD [...] Colon MD in OV> 04/05/25 1600 DD/ 155 TD/TT: 04/05/251558 Manager Information: us [facility] External Provider IMG US PROCEDURES Final Result * (ABNORMAL) Hemoglobin A1c (08/02/2024 5:05 PM EDT) Hemoglobin A1c 6.1(H) <6.0 % [facility] Comment:Hemoglobin A1C Refer ence Range Adults: 4.8 - 6.0 % Non diabetic: < 6.0 % Goal: < 7.0 %Additional Action Suggested: > 8.0 %Note: Hemoglobin A1c results are invalid for patients with abnormal amounts of HbF. Blood transfusions may impact the HbA1c concentration in the patient sample. Estimated Average Glucose 128 mg/dL [facility] Comment:eAG = Estimated ave rage glucose which is %A1C expressed asaverage glucose, using the formula of the X1T-AaenoluSuliooo Glucose study (ADAG), Diabetes Care, Vol.31,#8,Aug. 2008 Blood Venous blood specimen / Unknown 08/02/2024 5:05 PM EDT 08/02/2024 5:10 PM EDT us Marisabel Michel MD LAB BLOOD ORDERABLES Final Resul t [facility] [address] [place] [address] [phone] * BI Mammogram Screening Tomosynthesis Bilateral (03/21/2024 1:10 PM EDT) Anatomical Region Laterality Modality Breast Bilateral Mammography 03/21/2024 1:10 PM EDT Narrative 04/17/2024 6:32 AM EDT ? [facility] ? [address] ?[place] [address] ? Mammography Report ? Signed ? Patient: Radha Kimball ?MR#: ?? [id number] ? : 1970 ?Acct:[id number] ? Age/Sex: 53 / F ?ADM Date: 03/21/24 ? Loc: HO.MAMMO ? Attending Dr: Marisabel Michel MD ? Ordering Physician: Anand,Marisabel MD ?Results: 1Negative ? Date of Service: 03/21/ ?Follow Up: 1 Year From Orig ?? inal Mammogram ? Procedure(s): MM tomosynthesis screening BI ?? Accession Number(s): [id number] ? cc: Marisabel Michel MD ? EXAMINATION: [...] 0629 ? DD/ 1310 ? TD/TT: ? Manager Information: ? Procedure Note Clarence, Image - 04/17/2024 [facility] [address] [place] [address] Dr. Gibson, [place] [address] Mammography Report Signed Patient: Chuy AntoniozqueRadha mckeon#: [id number] : 1970Acct:[id number] Age/Sex: 53 / FADM Date: 03/21/24 Loc: RAFAT Attending Dr: Marisabel Michel MD Ordering Physician: Marisabel Michel MDResults: 1Negative Date of Service: 03/21/24Follow Up: 1 Year From Orig ina Mammogram Procedure(s): MM tomosynthesis screening BI Accession Number(s): [id number] cc: Marisabel Michel MD EXAMINATION: MM SCREENING [...] in OV> 04/17/24 0629 DD/ 1310 TD/TT: Manager Information: Marisabel Michel MD IMG BI PROCEDURES Final Result * (ABNORMAL) Lipid Panel with Reflex to Direct LDL (12/07/2023 10:20 AM EST) Triglycerides 71 <150 mg/dL [facility] Comment:Desirable Triglyceri de: less than 150 mg/dLBorderline High Triglyceride 150-199 mg/dLHigh Triglyceride: 200-499 mg/dLVery High Triglyceride: greater than or equal to 5OO mg/dL Cholesterol 167 <200 mg/dL [facility] Comment:Desirable Cholestero l: less than 200 mg/dLBorderline High Cholesterol: 200-239 mg/dLHigh Cholesterol: greater than 239 mg/dL LDL Cholesterol Calculated 110(H) <100 mg/dL [facility] Comment:Desirable LDL: less than 100 mg/dLNear Optimal/Above Optimal LDL: 110- 129 mg/dLBorderline High LDL: 130-159 mg/dLHigh LDL: 160-189 mg/dLVery High LDL: greater than or equal to 190 mg/dL HDL Cholesterol 43 >40 mg/dL [facility] Comment:Desirable HDL: great er than 40 mg/dL Note: This HDL assay may give artificially low results in patients with liver disease. Blood 12/07/2023 10:2 0 AM EST 12/07/2023 10:20 AM EST Marisabel Michel MD LAB BLOOD ORDERABLES Final Resul t [facility] [address] [place] [address] [phone] * Colonoscopy (06/12/2021) Colonoscopy Normal Normal us George Lambert MD HEALTH MAINTENANCE Edited Result - Final from Last 3 Months or Most Recently Relevant to Health Maintenance Insurance [facility] < [address] [place] [id number] Care Teams Agent Producer Relationship Specialty Start Date End Date Marisabel Michel MD [address] [place] [address] PCP - General Family Medicine 09/04/11
--- OUTSIDE RECORDS SUMMARY | 2025-04-07 14:14 | XMS_ITS ---
Author Organization [facility] Address [address] [place] [address] Care Team Providers Care Director Of Individual Giving Name Role Phone Marisabel Michel Primary Care Provider UnavailYoni Deng Unavailable [phone] Halle Bustillo Unavailable [phone] [facility]counters En[facility] [address] [facility] Halle Bustillo Plan Of Treatment Next Appt Details Provider Name:Yoni Bhatt , 05/08/2025 01:30:00 PM, [address] [place] [address], [place], [address], Progress Notes * Radha JACKDOB: [birth year] (54 yo F)Acc No.[id number]:03/24/2025 Progress Note Patient:?GUERO Radha Provider:?Halle Bustillo DPM :1970???Age:54 Y???Sex:Female D ate:03/24/2025 Address:[address] [place] [address] Pcp:Marisabel Michel Subjective: * Chief Complaints: * [...] DPM Date:?0 03/24/2025 Generated for Deny lou/Klaudia/David on:?04/07/2025 02:13 PM EDT
--- OUTSIDE RECORDS SUMMARY | 2025-04-07 14:14 | XMS_ITS | Encounter Summary ---
Author Organization [employer] Address [address] [place] [address] Care Team Providers Care Type Proof Reproducer Name Role Phone Marisabel Michel MD Primary Care Provider [phone] Encounter Details Date Type Department Care Team ([facility] st Contact Info) Description 10/01/2023 Orders Only [facility] MEDICINE [address] [place], [place] [phone] Marisabel Michel MD [address] [place], [place] [phone] Social History Tobacco Use Types Packs/Day Years [...] Office Visit [facility] [address] [place] [address] Marisabel Michel MD [address] [place] [address] documented as of this encounter Visit Diagnoses Not on filedocumented in this encounter Additional Health Concerns Assessment Noted Time PHQ-9 Depression Total Score: 2 02/25/20 23 1:12 PM EDT documented as of this encounter Care Teams Type Proof Reproducer Relationship Specialty Start Date End Date Marisabel Michel MD [address] [place] [address] PCP - General Family Medicine 09/04/11 documented as of this encounter
--- OUTSIDE RECORDS SUMMARY | 2025-04-07 14:14 | XMS_ITS | Patient Health Record ---
Author Organization [facility] Address [address] [place] [address] Care Team Providers Care Sales And Merchandising Representative Name Role Phone Marisabel Michel Primary Care Provider Yoni Glover Unavailable [phone] Gilbert Matson Unavailable [phone] Halle Bustillo Unavailable [phone] Allergies Allergen (clinical drug ingredient) Drug/Non Drug [...] application Externally Twice a day Active Ipratropium [place] Active Prednisone Not-Takin g Systane Active Jock [...] Orally for 30 day(s) Active Saline Nasal [place] as needed A ctive Meclizine HCl 12.5 [...] Problem Acquired hammer toe of right foot (627636792627 9105) Other hammer toe(s) (acquired), right foot (M20.41) Active confirmed Problem Type 2 diabetes mellitus with peripheral angiopathy (137451103) Type 2 diabetes mellitus with diabetic peripheral angiopathy without gangrene (E11.51) Active confirmed Q7(A), Q8(2B), Q9(1B,2C) Problem Acquired hammer toe of left foot (325095053747 9103) Other hammer toe(s) (acquired), left foot (M20.42) Active confirmed Problem Ulcer of toe of left foot (disorder) (345347964713 87745) Skin ulcer of toe of left foot, limited to breakdown of skin (L97.521) Active confirmed Response to treatment Nonapplicable Vital Signs Blood pressure diastolic 76 mm Hg 01/30/2025 Height 5ft in 01/30/2025 Blood pressure systolic 127 mm Hg 01/30/2025 Weight 178 lbs 01/30/2025 BMI 34.76 kg/m2 01/30/2025 Procedures Procedure Date Ordered Date Performed Result Body Sit e 19754- Debride <25 sq cm 05/03/2024 N/A 72661-NCPQTPP NAIL, 6 OR MORE 10/07/2024 N/A 71672-ZJGL SKIN LESIONS, 2 TO 4 10/07/2024 N/A 02228-TYIJIUP NAIL, 6 OR MORE 01/30/2025 N/A 22080- Debride <25 sq cm 01/30/2025 N/A 55829-BFYI SKIN LESIONS, 2 TO 4 01/30/2025 N/A Encounters Encounter Location Date Provider Diagnosis [facility] [address] [address] 05/03/2024 Gilbert Matson Tinea unguium B35.1 ; Pain in right toe(s) M79.674 ; Pain in left toe(s) M79.675 ; Skin disease L98.9 ; Type 2 diabetes mellitus with diabetic polyneuropathy E11.42 ; Ingrowing nail L60.0 ; Non-pressure chronic ulcer of other part of right foot limited to breakdown of skin L97.511 and Plantar fascial fibromatosis M72.[address] [address] 05/10/2024 Gilbert Matson Tinea unguium B35.1 ; Pain in right toe(s) M79.674 ; Pain in left toe(s) M79.675 ; Skin disease L98.9 ; Type 2 diabetes mellitus with diabetic polyneuropathy E11.42 ; Ingrowing nail L60.0 and Non-pressure chronic ulcer of other part of right foot limited to breakdown of skin L97.[address] [address] 07/29/2024 Gilbert Matson Tinea unguium B35.1 ; Pain in right toe(s) M79.674 ; Pain in left toe(s) M79.675 ; Skin disease L98.9 ; Type 2 diabetes mellitus with diabetic polyneuropathy E11.42 ; Ingrowing nail L60.0 and Cellulitis of right lower extremity L03.[address] 08/26/2024 Gilbert Matson Tinea unguium B35.1 ; Pain in right toe(s) M79.674 ; Pain in left toe(s) M79.675 ; Skin disease L98.9 ; Type 2 diabetes mellitus with diabetic polyneuropathy E11.42 and Cellulitis of toe of left foot L03.[address] 10/07/2024 Halle Bustillo Type 2 diabetes mellitus with diabetic polyneuropathy E11.42 and Tinea unguium B35.[address] [address] 01/30/2025 Yoni Bhatt Type 2 diabetes mellitus with diabetic peripheral angiopathy without gangrene E11.51 ; Tinea unguium B35.1 ; Pain in right toe(s) M79.674 ; Pain in left toe(s) M79.675 ; Other hammer toe(s) (acquired), left foot M20.42 ; Other hammer toe(s) (acquired), right foot M20.41 and Skin ulcer of toe of left foot, limited to breakdown of skin L97.521 [facility] [place] [address] [address] 07/22/2024 Gilbert Matson Assessments Encounter Date Diagnosis [...] Treatment Pending Test Test Name Order Date 70063-CTKEOVL NAIL, 6 OR MORE 06/02/2017 52556-TVVDZET NAIL, 6 OR MORE 09/01/2017 99298-BSIQLCQ NAIL, 6 OR MORE 12/22/2017 15689-VZYQCOE NAIL, 6 OR MORE 03/23/2018 15525-ENDINGF NAIL, 6 OR MORE 06/01/2018 09675-XNFZHIS NAIL, 6 OR MORE 10/29/2018 15230-MMGPXTQ NAIL, 6 OR MORE 08/06/2018 00026-YSATQEG NAIL, 6 OR MORE 10/07/2024 46028-URGLKVE NAIL, 6 OR MORE 01/30/2025 83435-Ojvuleid Plate 08/06/2018 85768-Fwbhnhez Plate 12/22/2017 13200- Debride <25 sq cm 06/22/2018 04414- Debride <25 sq cm 01/30/2025 87290- Debride <25 sq cm 05/03/2024 09449-UFZOUEJ SKIN/TISSUE 02/04/2022 85920-PHXRXUC SKIN/TISSUE 05/12/2022 87157 I&D ABSCESS- SIMPLE,SINGLE 019 35177 I&D ABSCESS- SIMPLE,SINGLE 020 56558- I&D ABSCESS-COMPLICATED,MULTI 08/2018 75968- I&D ABSCESS-COMPLICATED,MULTI 24558-AUJJ SKIN LESIONS, 2 TO 4 06/01/20 18 49845-GNFV SKIN LESIONS, 2 TO 4 08/06/20 18 17368-EVNH SKIN LESIONS, 2 TO 4 06/02/20 17 09716-CMFM SKIN LESIONS, 2 TO 4 03/23/20 18 73449-RAIR SKIN LESIONS, 2 TO 4 12/22/19 18 41265-GMEU SKIN LESIONS, 2 TO 4 09/01/20 17 70221-RGFY SKIN LESIONS, 2 TO 4 10/26/20 20 42260-VUPB SKIN LESIONS, 2 TO 4 01/30/20 21 83736-NNHQ SKIN LESIONS, 2 TO 4 04/30/20 21 78915-MPII SKIN LESIONS, 2 TO 4 07/30/20 21 07593-EZQO SKIN LESIONS, 2 TO 4 10/25/20 21 20890-IZJC SKIN LESIONS, 2 TO 4 12/27/19 22 00394-UMUY SKIN LESIONS, 2 TO 4 02/05/20 22 01265-QJJY SKIN LESIONS, 2 TO 4 01/24/20 20 18510-APXR SKIN LESIONS, 2 TO 4 04/24/20 20 70876-SWLL SKIN LESIONS, 2 TO 4 07/24/20 20 27640-YLTI SKIN LESIONS, 2 TO 4 02/09/20 19 08574-ZPRV SKIN LESIONS, 2 TO 4 05/10/20 19 33653-FUSR SKIN LESIONS, 2 TO 4 07/26/20 19 39822-SMWG SKIN LESIONS, 2 TO 4 11/08/20 19 61144-CMAE SKIN LESIONS, 2 TO 4 07/01/20 22 92711-MJOM SKIN LESIONS, 2 TO 4 10/29/20 18 69213-ZGRQ SKIN LESIONS, 2 TO 4 01/31/20 25 80227-EFWC SKIN LESIONS, 2 TO 4 10/07/20 24 Next Appt Details Provider Name:Yoni Bhatt , 05/08/2025 01:30:00 PM, [address] [facility], [facility] [address], [place], [address], Insurance Providers Payer Name Payer Address Payer Phone Subscriber Number Group Number Insured Name Patient Relationship to Insured Coverage Start Date Coverage End Date [facility] [employer] Claims [address] [place] [id number] Radha Vera Self - patient is the insured 7 Medical (General) History Medical History History ICD Code Arthritis asthma Cerebral palsy Chicken pox Epilepsy Knee Pain Kidney stones Migraines Paralysis Poor circulation Reflux Surgical History Surgery Date(Month/Year) appendectomy 2009 hand/wrist 1983 leg surgery 1981 Hospitalization History Reason Date(Month/Year) [facility]- leg infection 07/19-07/25 Urgent Care- Pain in ankle- negetive ult rasound and x-ray 04/2019 ER in [place] 02/2018
--- OUTSIDE RECORDS SUMMARY | 2025-04-07 14:14 | XMS_ITS | Encounter Summary ---
Author Organization [employer] Address [address] [place] [address] 7 [place] [address] Care Team Providers Care Desktop Engineer Name Role Phone Marisabel Michel MD Primary Care Provider [phone] Reason for Referral * Consultation (Routine) - Closed Specialty Diagnoses / Procedures Referred By Vee t Referred To Contact Physical Therapy Diagnoses Cerebral palsy, unspecified type (CMS/HCC) Wheelchair dependence Marisabel Michel MD [address] [place] [address] Phone: tel: fax: Referral ID Status Reason Start Date Expiration Date V isits Requested Visits Authorized [id number] Closed Specialty Services Required 11/25/2024 11/25/2025 1 1 * Consultation (Routine) - Closed Specialty Diagnoses / Procedures Referred By Vee carter Referred To Contact Occupational Therapy Diagnoses Cerebral palsy, unspecified type (CMS/HCC) Wheelchair dependence Marisabel Michel MD [address] [place] [address] Phone: tel: fax: Referral ID Status Reason Start Date Expiration Date V isits Requested Visits Authorized [id number] Closed Specialty Services Required 11/25/2024 11/25/2025 1 1 Encounter Details Date Type Department Care Team (Late st Contact Info) Description 11/25/2024 Orders Only [facility] [address] [place] [address] Marisabel Michel MD [address] [place] [address] Cerebral palsy, unspecified type (CMS/HCC) (Primary Dx); [...] Description 06/05/2025 1:45 PM EDT Office Visit [facility] [address] [place] [address] Marisabel Michel MD [address] [place] [address] Scheduled Referrals Name Type Priority Associated Diagnoses [...] documented as of this encounter Care Teams Desktop Engineer Relationship Specialty Start Date End Date Marisabel Michel MD [address] [place] [address] PCP - General Family Medicine 09/04/11 documented as of this encounter
--- OUTSIDE RECORDS SUMMARY | 2025-04-07 14:14 | XMS_ITS | Encounter Summary ---
Author Organization [employer] Address [address] [facility] 7t [place] [address] Care Team Providers Care Trimming Operator Name Role Phone Marisabel Michel MD Primary Care Provider [phone] Reason for Visit * Reason Onset Date Comments Appointment Request 01/23/2023 Encounter Details Date Type Department Care Team (Late Contact Info) Description 01/23/2023 Telephone [facility] [address] [place] [address] [phone] Marisabel Michel MD [address] [place] [phone] Appointment Request Social History Tobacco Use Types [...] appt with pcp. Please contact pt at [phone] documented in this encounter Plan of Treatment Upcoming Encounters Date Type Department Care Team (Late Contact Info) Description 06/05/2025 1:45 PM EDT Office Visit [facility] [address] [place] [address] Marisabel Michel MD [address] [place], [place] [phone] documented as of this encounter Visit Diagnoses Not on filedocumented in this encounter Care Teams Trimming Operator Relationship Specialty Start Date End Date Marisabel Michel MD [address] [place], [place] [phone] PCP - General Family Medicine 09/04/11 documented as of this encounter
== END 2025-04-07 14:34 | disposition home or self-care (01) ==
LOC: HO.HPS 14:10
PROVIDERS: PCP Family Medicine; Visit Provider Internal Medicine Pulmonary Disease
DX: J45.909 Unspecified asthma, uncomplicated (principal); G47.33 Obstructive sleep apnea (adult) (pediatric); R06.01 Orthopnea; Z91.09 Other allergy status, other than to drugs and biological substances; J32.9 Chronic sinusitis, unspecified
CPT/HCPCS: 99214; G2211

== ENCOUNTER 2025-04-11 11:30 | Outpatient (AMB) | payer OTHER, SELFPAY ==
--- NOTE | 2025-04-11 11:41 | A.OFFVIS_ITS ---
Intake Visit Reasons: 1y/US Intake Note: Pt presents to the office today for a 1 year follow up/US. Allergies budesonide [From SYMBICORT] Allergy (Intermediate, Verified 04/11/25 11:42) TREMOR formoterol [From SYMBICORT] Allergy (Intermediate, Verified 04/11/25 11:42) TREMOR sulfamethoxazole [From BACTRIM] Allergy (Intermediate, Verified 04/11/25 11:42) RASH trimethoprim [From BACTRIM] Allergy (Intermediate, Verified 04/11/25 11:42) RASH Sulfa (Sulfonamide Antibiotics) Allergy (Unknown, Verified 04/11/25 11:42) Unknown Symbicort Allergy (Unknown, Uncoded 04/11/25 11:42) Unknown HPI Comments Details: Radha is a pleasant female. She is a patient of Dr. Michel. She seen for the following urologic issues - nephrolithiasis Yearly evaluation Renal ultrasound question stone right side 12 month follow-up renal imaging Radha has noted some burning with urination in the past 2 days Recommend fluid intake If pain persists would give antibiotics Nephrolithiasis Here for ongoing assessment Prior intervention - ESWL for renal stone disease Risk factors for stone formation - minimal mobility Imaging - 01/13 renal ultrasound no stone seen - 04/13 renal ultrasound no stone seen - 04/14 renal ultrasound no stone seen, 135 cc residual - 04/15 renal ultrasound no evidence of stone disease - 04/16 renal ultrasound small stone right upper pole Therapeutic plan - encouraged fluid therapy with lemon water, interval surveillance. PFSH Medical History Wheelchair dependence Edema of both lower extremities Hx of cerebral palsy GERD (gastroesophageal reflux disease) Asthma Alopecia Surgical History History of surgery Hx of appendectomy History of esophagogastroduodenoscopy (EGD) Hx of colonoscopy Hx of lithotripsy Social History Household Members: Family Housing: House Alcohol intake: never Patient Tobacco Use Status: Never used Tobacco service: No Current occupational status: disabled Review of Systems Const Denies chills and Denies fever(s) Card Reports no additional complaints and Denies syncope Resp Denies cough GI Denies abdominal pain and Denies heartburn Reports as per HPI and Denies change in libido Neuro Denies syncope Psych Denies change in libido Endo Denies change in libido Physical Exam Const General: cooperative, healthy appearing, comfortable and no acute distress Orientation/consciousness: patient oriented x3 HEENT Face and sinus: Yes normal facial exam Mouth: moist mucous membranes Neck Neck: Yes normal visual inspection, Yes full ROM and Yes trachea midline Chest Chest palpation & inspection: normal inspection of the chest Resp Effort & Inspection: normal respiratory effort, able to speak in complete sentences and no respiratory distress GI Inspection: Yes normal to inspection Back/Spine/Pelvis Cervical Spine: normal cervical lordosis Thoracic/Lumbar Spine: thoracic and lumbar spine normal to inspection Skin General skin exam: no rashes or lesions noted Neuro General: patient oriented x3, gait normal, tone normal and moves all extremities Extrem General: Yes normal to inspection and Yes capillary refill normal Assessment & Plan Assessment & Plan (1) Nephrolithiasis: Code(s): N20.0 - Calculus of kidney Category: Medical Plan 12 month follow-up renal ultrasound Orders: Orders US renal BI 12 Months N20.0 - Calculus of kidney Patient Instructions: This note is constructed using voice recognition software. While every effort has been made to ensure accuracy bus transportation manager errors may have been included. Imaging studies, laboratory and physical exam results were discussed and reviewed in detail. No major barriers to patient understanding were identified. An opportunity to ask questions regarding the treatment plan was provided. All questions were answered. The patient expressed understanding and agreement with the above treatment plan. The patient is aware they should contact our office by phone for worsening of their current condition or the appearance of new urologic symptoms. Compliance is encouraged with any medications and followup testing that is ordered. It is a privilege to participate in the urologic care of your patient. If you have any questions or concerns regarding treatment for the above conditions, or other urologic issues, please do not hesitate to contact me. The office telephone contact is [phone]. Sincerely, Dr Binh Zelaya MD, [facility] - Urology Compassionate Specialist Care for the Genitourinary System Coding Level of Care Code Est Pt Level 4 (80752) Complex EM visit Add On G2211 Diagnoses Nephrolithiasis N20.0
--- OUTSIDE RECORDS SUMMARY | 2025-04-11 12:44 | XMS_ITS | Encounter Summary ---
Author Organization [employer] Address [address] 7t [place] [address] Care Team Providers Care [employer] Name Role Phone Marisabel Michel MD Primary Care Provider [phone] Encounter Details Date Type Department Care Team ([facility] st Contact Info) Description 06/30/2024 Orders Only [facility] MEDICINE [address] [place], [place] [phone] Marisabel Mcihel MD [address] [place] [address] Prediabetes (Primary Dx); Primary hypertension; Acute right [...] 06/05/2025 1:45 PM EDT Office Visit [facility] MEDICINE [address] [place], [place] [phone] Marisabel Michel MD [address] [place], [place] [phone] documented as of this encounter Procedures Procedure [...] PM EDT) Hemoglobin A1c 6.1(H) <6.0 % [facility] Comment:Hemoglobin A1C Refer ence Range Adults: 4.8 - 6.0 % Non diabetic: < 6.0 % Goal: < 7.0 %Additional Action Suggested: > 8.0 %Note: Hemoglobin A1c results are invalid for patients with abnormal amounts of HbF. Blood transfusions may impact the HbA1c concentration in the patient sample. Estimated Average Glucose 128 mg/dL [facility] Comment:eAG = Estimated ave rage glucose which is %A1C expressed asaverage glucose, using the formula of the W4B-KiczxczEccdfzn Glucose study (ADAG), Diabetes Care, Vol.31,#8,Jun. 2007 Blood Venous blood specimen / Unknown 08/02/2024 5:05 PM EDT 08/02/2024 5:10 PM EDT us Marisabel Michel MD LAB BLOOD ORDERABLES Final Resul t Performing Organization Address City/[facility]/ZIP Co de Phone Number [facility] [address] [place] [phone] * (ABNORMAL) TSH with Reflex to Free T4 (07/15/2024 3:24 PM EDT) TSH reflex Free T4 0.19(L) 0.32 - 4.0 uIU/mL [facility] Blood 07/15/2024 3:24 PM EDT 07/15/2024 3:26 PM EDT Marisabel Michel MD LAB BLOOD ORDERABLES Final Resul t Performing Organization Address City/[facility]/ZIP Co de Phone Number [facility] [address] [place] [phone] * (ABNORMAL) Sed Rate by Modified Westergren (07/15/2024 3:24 PM EDT) Erythrocyte Sedimentation Rate 71(H) 0 - 20 MM/HR [facility] Comment:Patients with polycy themia and many hemoglobin abnormalitiesmay have depressed sed rates whereas patients with anemiamay have elevated sed rates. Blood Venous blood specimen / Unknown 07/15/2024 3:24 PM EDT 07/15/2024 3:26 PM EDT Marisabel Michel MD LAB BLOOD ORDERABLES Final Resul t Performing Organization Address [facility] Co de Phone Number [facility] [address] [place] [phone] * (ABNORMAL) C-reactive Protein (07/15/2024 3:24 PM EDT) C Reactive Protein 18.68(H) < or = 0.50 mg/dL [facility] Blood Venous blood specimen / Unknown 07/15/2024 3:24 PM EDT 07/15/2024 3:26 PM EDT Marisabel Michel MD LAB BLOOD ORDERABLES Final Resul t Performing Organization Address [facility] Co de Phone Number [facility] [address] [place] [phone] * Uric acid (07/15/2024 3:24 PM EDT) Uric Acid 4.8 2.4 - 5.7 mg/dL [facility] Blood Venous blood specimen / Unknown 07/15/2024 3:24 PM EDT 07/15/2024 3:26 PM EDT Marisabel Michel MD LAB BLOOD ORDERABLES Final Resul t Performing Organization Address [facility] Co de Phone Number [facility] [address] [place] [phone] * (ABNORMAL) Comprehensive Metabolic Panel (07/15/2024 3:24 PM EDT) Pathologist [facility] Sodium 141 135 - 145 mmol/L [facility] Potassium 3.5 3.3 - 5.1 mmol/L [facility] Chloride 105 96 - 108 mmol/L [facility] Carbon Dioxide 20(L) 22 - 29 mmol/L [facility] Anion Gap 20 12 - 20 [facility] Urea Nitrogen (BUN) 13 9 - 16 mg/dL [facility] Creatinine, Serum 0.81 0.5 - 1.4 mg/dL [facility] Estimated Glomerular Filt Rate >60 [facility] Comment:NOTE: For -Am erican individuals, multiply the result by 1.210.Chronic Kidney Disease: Estimated GFR < 60 mL/min/1.65a5Puqkos Kidney Disease: Estimated GFR < 15 mL/min/1.73m2 Glucose 91 60 - 115 mg/dL [facility] Calcium 10.5(H) 8.4 - 10.2 mg/dL [facility] Bilirubin, Total 0.4 0.0 - 1.0 mg/dL [facility] Aspartate Amino Transferase 17 5 - 31 U/L [facility] Alanine Aminotransferase 18 0 - 31 U/L [facility] Total Protein 8.5(H) 6.5 - 8.0 g/dL [facility] Albumin Level 4.3 3.5 - 5.0 g/dL [facility] Alkaline Phosphatase 87 39 - 117 U/L [facility] Blood Venous blood specimen / Unknown 07/15/2024 3:24 PM EDT 07/15/2024 3:26 PM EDT us Marisabel Michel MD LAB BLOOD ORDERABLES Final Resul t [facility] [address] [place] [phone] * (ABNORMAL) CBC auto differential (07/15/2024 3:24 PM EDT) White Blood Count 8.9 4.8 - 10.8 X10*3/uL [facility] Red Blood Count 4.49 4.20 - 5.50 X10*6/uL [facility] Hemoglobin 12.9 12.0 - 16.0 g/dl [facility] Hematocrit 39.1 37.0 - 47.0 % [facility] Mean Corpuscular Volume 87.1 80.0 - 98.0 fL [facility] Mean Corpuscular Hemoglobin 28.7 27.0 - 33.0 pg [facility] Mean Corpuscular HGB Conc 33.0 31.0 - 35.0 g/dl [facility] Red Cell Distribution Width 13.7 11.0 - 16.0 % [facility] Platelet Count 223 160 - 400 X10*3/uL [facility] Mean Platelet Volume 13.1(H) 9.4 - 12.3 fL [facility] Neutrophils Percent Auto 68.4 45 - 73 % [facility] Imm Gran Pct Auto 0.6(H) 0.0 - 0.4 % [facility] Lymphocytes Percent Auto 17.3(L) 20 - 40 % [facility] Monocytes Percent Auto 10.3 2 - 11 % [facility] Eosinophils Percent Auto 3.1 0 - 4 % [facility] Basophils Percent Auto 0.3 0 - 2 % [facility] NRBC Pct Auto 0.0 0.0 - 0.2 /100WBC [facility] Neutrophils Absolute Auto 6.1 2.0 - 8.3 x10*3/uL [facility] Imm Gran Abs Auto 0.05(H) 0.00 - 0.03 X10*3/uL [facility] Lymphocytes Absolute Auto 1.6 1.2 - 4.9 X10*3/uL [facility] Monocytes Absolute Auto 0.9 0.1 - 1.2 X10*3/uL [facility] Eosinophils Absolute Auto 0.3 0.0 - 0.4 X10*3/uL [facility] Basophils Absolute Auto 0.0 0.0 - 0.2 X10*3/uL [facility] NRBC Abs Auto 0.000 0.0 - 0.012 X10*3/uL [facility] Blood Venous blood specimen / Unknown 07/15/2024 3:24 PM EDT 07/15/2024 3:26 PM EDT us Marisabel Michel MD LAB BLOOD ORDERABLES Edited Resu lt - Final [facility] [address] [place] [phone] * VASC Lower Extremity Venous Duplex Bilateral (07/15/2024 2:00 PM EDT) 07/15/2024 2:00 PM EDT Narrative [facility] - 07/15/2024 2:49 PM EDT ? [facility] ?[address] ?[place] [address] ? Ultrasound Report ? Signed ? Patient: Radha Kimball ?MR#: ?? [id number] ? : 1970 ?Acct:[id number] ? Age/Sex: 53 / F ?ADM Date: 07/15/24 ? Loc: HO.US ? Attending Dr: Sebastian Matta MD ? Ordering Physician: Sebastian Matta MD ?? Date of Service: 07/15/24 ?? Procedure(s): US venous duplex LE BI ?? Accession Number(s): [id number] ? cc: Sebastian Matta MD; Marisabel Michel [...] DD/ 1400 ? TD/TT: 07/15/24 1420 ? Air Conditioning Engineer: ? Procedure Note Clarence, Image - 07/15/2024 [place] [address] Ultrasound Report Signed Patient: Radha KimballMR#: [id number] : 1970Acct:[id number] Age/Sex: 53 / FADM Date: 07/15/24 Loc: HO.US Attending Dr: Sebastian Matta MD Ordering Physician: Sebastian Matta MD Date of Service: 07/15/24 Procedure(s): US venous duplex LE BI Accession Number(s): [id number] cc: Sebastian Matta MD; Marisabel Michel MD [...] 07/15/24 1445 DD/ 1400 TD/TT: 07/15/24 1420 Air Conditioning Engineer: [facility] External Provider CV VASC ULAR PROCEDURES Final Result Performing Organization Address City/State/[facility] Co de Phone Number [facility] [address] [place] [phone] documented in this encounter Visit Diagnoses Diagnosis Prediabetes- Primary Other abnormal glucose Primary hypertension Unspecified essential hypertension Acute right ankle pain Fever, unspecified fever cause documented in this encounter Additional Health Concerns Assessment Noted Time PHQ-9 Depression Total Score: 0 03/29/20 24 3:23 PM EDT documented as of this encounter Care Teams [employer] Relationship Specialty Start Date End Date Marisabel Michel MD [address] [place] [phone] PCP - General Family Medicine 09/04/11 documented as of this encounter
--- OUTSIDE RECORDS SUMMARY | 2025-04-11 12:45 | XMS_ITS | Encounter Summary ---
Author Organization [email or web address] Address [address]t [place] [address] Care Team Providers Care Custom Stock Maker Name Role Phone Marisabel Michle MD Primary Care Provider [phone] Encounter Details Date Type Department Care Team ([facility] st Contact Info) Description 10/21/2023 Orders Only [facility] MEDICINE [address] [place], [place] [phone] Marisabel Michel MD [address] [place] [address] Open wound of right lower leg due [...] your housing situation today? I have diane arleth 09/09/[address] you li [...] 1:45 PM EDT Office Visit [facility] MEDICINE [address] [place], [place] [phone] Marisabel Michel MD [address] [place] [phone] documented as of this encounter Visit Diagnoses Diagnosis Open wound of right lower leg due to dog bite- Primary Peripheral venous insufficiency Unspecified venous (peripheral) insufficiency Venous stasis dermatitis of both lower extremities documented in this encounter Additional Health Concerns Assessment Noted Time PHQ-9 Depression Total Score: 2 02/25/20 23 1:12 PM EDT documented as of this encounter Care Teams Custom Stock Maker Relationship Specialty Start Date End Date Marisabel Michel MD [address] [place] [phone] PCP - General Family Medicine 09/04/11 documented as of this encounter
--- OUTSIDE RECORDS SUMMARY | 2025-04-11 12:45 | XMS_ITS | Encounter Summary ---
Author Organization [employer] Address [address] [facility] 7t [place] [address] Care Team Providers Care Manufacturing Test Technician Name Role Phone Marisabel Michel MD Primary Care Provider [phone] Reason for Visit * Reason Comments Med Refill Encounter Details Date Type Department Care Team ([facility] st Contact Info) Description 10/08/2023 Refill [facility] [address] [place], [place] [phone] Angela Kirkland DO [address] [place], [place] [phone] Osteopenia, unspecified location Social History Tobacco Use [...] the past 12 months, has t he [employer] gas, oil or water company threatened to [...] 1:45 PM EDT Office Visit [facility] MEDICINE [address] [place] [address] Marisabel Michel MD [address] [place] [address] documented as of this encounter Visit Diagnoses Diagnosis Osteopenia, unspecified location documented in this encounter Additional Health Concerns Assessment Noted Time PHQ-9 Depression Total Score: 2 02/25/20 23 1:12 PM EDT documented as of this encounter Care Teams Manufacturing Test Technician Relationship Specialty Start Date End Date Marisabel Michel MD [address] [place] [address] PCP - General Family Medicine 09/04/11 documented as of this encounter
--- OUTSIDE RECORDS SUMMARY | 2025-04-11 12:45 | XMS_ITS | Encounter Summary ---
Author Organization [email or web address] Address [address] [place] [address] Care Team Providers Care Filtering Machine Tender Helper Name Role Phone Marisabel Michel MD Primary Care Provider [phone] Encounter Details Date Type Department Care Team ([facility] st Contact Info) Description 08/05/2024 Orders Only [facility] [address] [place], [place] [phone] Marisabel Michel MD [address] [place] [phone] Acute right ankle pain (Primary Dx); Cellulitis [...] Description 06/05/2025 1:45 PM EDT Office Visit [facility] [address] [place], [place] [phone] Marisabel Michel MD [address] [place], [place] [phone] Scheduled Orders Name Type Priority Associated Diagnoses [...] Sedimentation Rate 56(H) 0 - 20 MM/HR [facility] Comment:Patients with polycy themia and many hemoglobin abnormalitiesmay have depressed sed rates whereas patients with anemiamay have elevated sed rates. Blood Venous blood specimen / Unknown 08/30/2024 4:50 PM EDT 08/30/2024 5:01 PM EDT us Marisabel Michel MD LAB BLOOD ORDERABLES Final Resul t [facility] [address] [place] [address] [phone] * (ABNORMAL) Basic Metabolic Panel (08/30/2024 4:50 PM EDT) Sodium 140 135 - 145 mmol/L [facility] Potassium 3.6 3.3 - 5.1 mmol/L [facility] Chloride 104 96 - 108 mmol/L [facility] Carbon Dioxide 25 22 - 29 mmol/L [facility] Anion Gap 15 12 - 20 [facility] Urea Nitrogen (BUN) 16 9 - 16 mg/dL [facility] Creatinine, Serum 0.77 0.5 - 1.4 mg/dL [facility] Estimated Glomerular Filt Rate >60 [facility] Comment:NOTE: For -Am erican individuals, multiply the result by 1.210.Chronic Kidney Disease: Estimated GFR < 60 mL/min/1.27i7Vuodjo Kidney Disease: Estimated GFR < 15 mL/min/1.73m2 Glucose 93 60 - 115 mg/dL [facility] Calcium 10.3(H) 8.4 - 10.2 mg/dL [facility] Blood Venous blood specimen / Unknown 08/30/2024 4:50 PM EDT 08/30/2024 5:01 PM EDT Marisabel Michel MD LAB BLOOD ORDERABLES Final Resul t Performing Organization Address City/[facility] Co de Phone Number [facility] [address] [place] [phone] * Magnesium (08/30/2024 4:50 PM EDT) Magnesium 2.3 1.6 - 2.6 mg/dL [facility] Blood Venous blood specimen / Unknown 08/30/2024 4:50 PM EDT 08/30/2024 5:01 PM EDT Marisabel Michel MD LAB BLOOD ORDERABLES Final Resul t Performing Organization Address [facility] [place] [facility] de Phone Number [facility] [address] [place] [phone] * (ABNORMAL) Reticulocyte Count (08/30/2024 4:50 PM EDT) Reticulocytes Absolute 0.095 0.026 - 0.095 X10*6/uL [facility] Immature Retic Fraction 8.3 3.0 - 15.9 % [facility] Retic HGB Equivalent 31.7 30.0 - 35.0 pg [facility] Reticulocyte Percent 2.1(H) 0.5 - 1.8 % [facility] Blood Venous blood specimen / Unknown 08/30/2024 4:50 PM EDT 08/30/2024 5:01 PM EDT Marisabel Michel MD LAB BLOOD ORDERABLES Final Resul t Performing Organization Address City/[facility] de Phone Number [facility] [address] [place] [phone] * (ABNORMAL) Iron And Total Iron Binding Capacity (08/30/2024 4:50 PM EDT) Iron 38 30 - 160 mcg/dL [facility] Total Iron Binding Capacity 206(L) 228 - 428 mcg/dL [facility] Percent Iron Saturation 18 15 - 50 % [facility] Unsaturated Iron Binding 168 ug/dL [facility] Blood Venous blood specimen / Unknown 08/30/2024 4:50 PM EDT 08/30/2024 5:01 PM EDT Marisabel iMchel MD LAB BLOOD ORDERABLES Final Resul t Performing Organization Address [facility] de Phone Number [facility] [address] [place] [phone] * (ABNORMAL) Ferritin (08/30/2024 4:50 PM EDT) Ferritin 283(H) 10 - 250 ng/mL [facility] Blood Venous blood specimen / Unknown 08/30/2024 4:50 PM EDT 08/30/2024 5:01 PM EDT Marisabel Michel MD LAB BLOOD ORDERABLES Final Resul t Performing Organization Address [facility] Co de Phone Number [facility] [address] [place] [phone] * (ABNORMAL) C-reactive Protein (08/30/2024 4:50 PM EDT) C Reactive Protein 1.83(H) < or = 0.50 mg/dL [facility] Blood Venous blood specimen / Unknown 08/30/2024 4:50 PM EDT 08/30/2024 5:01 PM EDT us Marisabel Michel MD LAB BLOOD ORDERABLES Final Resul t [facility] [address] [place], [place] [phone] * (ABNORMAL) CBC auto differential (08/30/2024 4:50 PM EDT) White Blood Count 9.6 4.8 - 10.8 X10*3/uL [facility] Red Blood Count 4.49 4.20 - 5.50 X10*6/uL [facility] Hemoglobin 12.8 12.0 - 16.0 g/dl [facility] Hematocrit 39.2 37.0 - 47.0 % [facility] Mean Corpuscular Volume 87.3 80.0 - 98.0 fL [facility] Mean Corpuscular Hemoglobin 28.5 27.0 - 33.0 pg [facility] Mean Corpuscular HGB Conc 32.7 31.0 - 35.0 g/dl [facility] Red Cell Distribution Width 13.5 11.0 - 16.0 % [facility] Platelet Count 248 160 - 400 X10*3/uL [facility] Mean Platelet Volume 11.9 9.4 - 12.3 fL [facility] Neutrophils Percent Auto 70.8 45 - 73 % [facility] Imm Gran Pct Auto 0.8(H) 0.0 - 0.4 % [facility] Lymphocytes Percent Auto 17.2(L) 20 - 40 % [facility] Monocytes Percent Auto 6.7 2 - 11 % [facility] Eosinophils Percent Auto 4.0 0 - 4 % [facility] Basophils Percent Auto 0.5 0 - 2 % [facility] NRBC Pct Auto 0.0 0.0 - 0.2 /100WBC [facility] Neutrophils Absolute Auto 6.8 2.0 - 8.3 x10*3/uL [facility] Imm Gran Abs Auto 0.08(H) 0.00 - 0.03 X10*3/uL [facility] Lymphocytes Absolute Auto 1.7 1.2 - 4.9 X10*3/uL [facility] Monocytes Absolute Auto 0.6 0.1 - 1.2 X10*3/uL [facility] Eosinophils Absolute Auto 0.4 0.0 - 0.4 X10*3/uL [facility] Basophils Absolute Auto 0.1 0.0 - 0.2 X10*3/uL [facility] NRBC Abs Auto 0.000 0.0 - 0.012 X10*3/uL [facility] Blood Venous blood specimen / Unknown 08/30/2024 4:50 PM EDT 08/30/2024 5:01 PM EDT us Marisabel Michel MD LAB BLOOD ORDERABLES Final Resul t Performing Organization Address City/State/[facility] Co de Phone Number [facility] [address] [place] [phone] documented in this encounter Visit Diagnoses Diagnosis Acute right ankle pain- Primary Cellulitis of right lower leg Anemia, unspecified type Hypokalemia Hypopotassemia documented in this encounter Additional Health Concerns Assessment Noted Time PHQ-9 Depression Total Score: 0 03/29/20 24 3:23 PM EDT documented as of this encounter Care Teams Filtering Machine Tender Helper Relationship Specialty Start Date End Date Marisabel Michel MD [address] [place] [phone] PCP - General Family Medicine 09/04/11 documented as of this encounter
--- OUTSIDE RECORDS SUMMARY | 2025-04-11 12:45 | XMS_ITS | Encounter Summary ---
Author Organization [email or web address] Address [address] [place] [address] Care Team Providers Care Lab Intern Name Role Phone Marisabel Michel MD Primary Care Provider [phone] Encounter Details Date Type Department Care Team ([facility] st Contact Info) Description 03/30/2025 Orders Only [facility] [address] [place], [place] [phone] Marisabel Michel MD [address] [place] [address] Social History Tobacco Use Types Packs/Day Years [...] Description 06/05/2025 1:45 PM EDT Office Visit [facility] [address] [place] [phone] Marisabel iMchel MD [address] [place] [phone] documented as of this encounter Visit Diagnoses Not on filedocumented in this encounter Additional Health Concerns Assessment Noted Time PHQ-9 Depression Total Score: 0 03/29/20 24 3:23 PM EDT documented as of this encounter Care Teams Lab Intern Relationship Specialty Start Date End Date Marisabel Michel MD [address] [place] [phone] PCP - General Family Medicine 09/04/11 documented as of this encounter
--- OUTSIDE RECORDS SUMMARY | 2025-04-11 12:45 | XMS_ITS | Clinical Summary ---
Author Organization [employer] Address [address] [facility] [place] [address] [place] [address] Care Team Providers Care Steward/Stewardess Room Name Role Phone Marisabel Mcihel MD Primary Care Provider [phone] Allergies Active Allergy Reactions Criticality Noted Date [...] TOPICALLY TWICE A DAY 60 g 11 023 Active alendronate (Fosamax) 70 MG tablet TOME MARIAH TABLETA POR VIA ORAL EVERY WEEK IN THE MORNING, AT LEAST 30 MIN BEFORE FIRST FOOD, BEVERAGE, OR MEDICATION OF DAY 12 tablet 3 Active Blood Pressure Monitor misc Check BP [...] DAY 45 tablet 3 Active sodium chloride ([place]) 0.65 % nasal spray Administer 1 spray [...] (02/18/2025 5:07 AM EDT): - following with signal worker helper - she is pleased with her new signal worker helper's care - continue following the recommendation from the signal worker helper Acquired hammer toe of right foot 02/18/2025 Assessment & Plan (02/18/2025 5:07 AM EDT): - following with signal worker helper - she is pleased with her new signal worker helper's care - continue following the recommendation from the signal worker helper Ulcer of toe of left foot 02/18/2025 Assessment & Plan (02/18/2025 5:07 AM EDT): - following with signal worker helper - she is pleased with her new signal worker helper's care - continue following the recommendation from the signal worker helper Environmental allergies 10/05/2024 Orthopnea 10/05/2024 Osteoarthritis of [...] lateral compartment osteoarthritis. - seen by [facility] on 05/18/24 and was given intraarticular [...] of osteoporosis / osteopenia - Following with signal worker helper; seen yesterday - Evaluate with MRI due [...] PCP and furosemide which was prescribed by oil changer -Continue working on lifestyle modifications -Continue self-monitoring [...] PCP and furosemide which was prescribed by oil changer -Continue working on lifestyle modifications -Continue self-monitoring [...] PCP and furosemide which was prescribed by oil changer -Continue working on lifestyle modifications -Continue self-monitoring [...] 3:47 PM EDT): -followed by urologist, [facility] seen on 04/07/23, annual f/u -most recent [...] Plan (07/29/2024 10:22 AM EDT): -followed by beaming inspector, Dr. Rivers -advised to schedule appointment with Dr. Rivers to evaluate for her cellulitis; possible stasis dermatitis and/or atopic dermatitis. Assessment & Plan (03/08/2023 7:04 PM EDT): -followed by beaming inspector, Dr. Rivers Tubular adenoma of colon 03/08/2023 [...] Plan (07/01/2023 3:46 PM EDT): -Followed by Clerk Of Scales. -Cont moisturization. -Leg elevation -Low sodium diet Assessment & Plan (03/08/2023 7:16 PM EDT): Followed by Clerk Of Scales. -Cont moisturization. -Keep legs elevated. 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 Assessment & Plan (06/28/2024 5:46 AM EDT): - bilateral - following with [facility] orthopedic provider - received steroid injection to left knee in January 2023 - received steroid injection to right knee in April 2024 Assessment & Plan (03/08/2023 6:55 PM EDT): - seen by [facility] orthopedic provider on 12/26/22 - received steroid [...] AM EDT): Previously followed by allergy / claim processing specialist, Dr. Loco, now waiting for an appt with new specialist Evaluated by [facility] in 2022, patient was offered immunotherapy, but had been hesitant Currently following with [facility] pulmonology for both allergy, asthma, and FARTUN Continue cetirizine 10 mg bid Continue montelukast 10 mg daily Continue flonase Assessment & Plan (12/25/2023 6:13 AM EST): Previously followed by allergy / claim processing specialist, Dr. Loco, now waiting for an appt with new specialist Evaluated by [facility] provider in 2022, patient was offered immunotherapy, but had been hesitant Currently following with [facility] pul[facility] for both allergy, asthma, and FARTUN Continue cetirizine 10 mg bid Continue montelukast 10 mg daily Continue flonase Assessment & Plan (03/08/2023 7:14 PM EDT): Previously followed by allergy / claim processing specialist, Dr. Loco, now waiting for an appt with new specialist Continue cetirizine 10 mg bid Continue montelukast 10 mg daily Continue flonase Assessment & Plan (10/29/2022 2:29 PM EST): ?? Followed by allergy / claim processing specialist, Dr. Mcelroy ?? Continue cetirizine 10 mg bid ?? Continue montelukast 10 mg daily Asthma 08/29/2015 Assessment & Plan (02/14/2025 9:44 AM EDT): -Previously followed by Dr. Loco, allergy /claim processing specialist -Currently following with Dr. Pederson [facility] pul[facility]ology -Exacerbation 1-2 times per year -Last exacerbation in November 2020, Rx Prednisone (-Continue Spiriva) - Dr. Loco prescribed, but not mentioned in Dr. Pederson's note -Continue Breo -Continue montelukast -Continue albuterol HFA/neb prn Treatment Hx: Advair, difficulty using Diskus; Pulmicort; Incruse Assessment & Plan (06/28/2024 5:58 AM EDT): -Previously followed by Dr. Loco, allergy /claim processing specialist -Currently following with Dr. Pederson [facility] pul[facility] -Exacerbation 1-2 times per year -Last exacerbation in November 2020, Rx Prednisone (-Continue Spiriva) - Dr. Loco prescribed, but not mentioned in Dr. Pederson's note -Continue Breo -Continue montelukast -Continue albuterol HFA/neb prn Treatment Hx: Advair, difficulty using Diskus; Pulmicort; Incruse Assessment & Plan (03/29/2024 5:07 PM EDT): -Previously followed by Dr. Loco, allergy /claim processing specialist -Currently following with Dr. Pederson [facility] -Exacerbation 1-2 times per year -Last exacerbation in November 2020, Rx Prednisone (-Continue Spiriva) - Dr. Loco prescribed, but not mentioned in Dr. Pederson's note -Continue Breo -Continue montelukast -Continue albuterol HFA/neb prn Treatment Hx: Advair, difficulty using Diskus; Pulmicort; Incruse Assessment & Plan (12/25/2023 6:04 AM EST): -Previously followed by Dr. Loco, allergy /claim processing specialist -Currently following with Dr. Pederson, [facility] pulmonology -Exacerbation 1-2 times per year -Last exacerbation in November 2020, Rx Prednisone (-Continue Spiriva) - Dr. Loco prescribed, but not mentioned in Dr. Pederson's note -Continue Breo -Continue montelukast -Continue albuterol HFA/neb prn Treatment Hx: Advair, difficulty using Diskus; Pulmicort; Incruse Assessment & Plan (07/01/2023 3:43 PM EDT): -Previously followed by Dr. Loco, allergy /claim processing specialist -Exacerbation 1-2 times per year -Last exacerbation in November 2020, Rx Prednisone -Continue Spiriva -Continue Breo -Continue Singulair -Continue albuterol HFA/neb prn Treatment Hx: Advair, difficulty using Diskus; Pulmicort; Incruse Assessment & Plan (03/08/2023 6:59 PM EDT): -Previously followed by Dr. Loco, allergy /claim processing specialist -Exacerbation 1-2 times per year -Last exacerbation in November 2020, Rx Prednisone -Continue Spiriva -Continue Breo -Continue Singulair -Continue albuterol HFA/neb prn Treatment Hx: Advair, difficulty using Diskus; Pulmicort; Incruse Assessment & Plan (10/28/2022 9:38 PM EST): ?? Discharging Machine Operator, Dr. Mcelroy, upcoming appt ?? Continue [...] will continue using furosemide judiciously. - patient's residential builder recommended to double the dose of furosemide, [...] will continue using furosemide judiciously. - patient's residential builder recommended to double the dose of furosemide, [...] Encounters Date Type Department Care Team Description 04/08/2025 Results Follow-Up [facility] [address] [place] [address] Marisabel Michel MD Lipid Panel with Reflex to Direct LDL, Hemoglobin A1c, Comprehensive Metabolic Panel 04/05/2025 Orders Only [facility] External Provider, [facility] 04/04/2025 Refill [facility] [address] [place] [address] Marisabel Michel MD 03/30/2025 Orders Only [facility] [address] [place] [address] Marisabel Michel MD 03/28/2025 Telephone [facility] [address] [place], [place] [address] Marisabel Michel MD 03/28/2025 Orders Only [facility] [address] [place] [place], [place] [address] Marisabel Michel MD Prediabetes (Primary Dx); Screening for lipid disorders; Screening for diabetes mellitus; Hypokalemia 03/27/2025 Telephone [facility] [address] [place], [place] [address] Marisabel Michel MD FYI 03/17/2025 Telephone [facility] [address] [place], [place] [address] Nilda Trent RN 03/16/2025 Telephone [facility] [address] [place] [address] Marisabel Michel MD Nurse Triage 03/16/2025 Refill [facility] [address] [place] [place], [place] [address] Marisabel Michel MD 03/15/2025 Refill [facility] [address] [place] [address] Clair Lombardi MD 03/12/2025 Refill [facility] [address] [place] [address] Marisabel Michel MD 03/02/2025 Refill [facility] [address] [place] [address] Marisabel Michel MD 03/01/2025 Refill [facility] [address] [place] [address] Marisabel Michel MD 02/14/2025 1:00 PM EDT Office Visit [facility] [address] [place] [place], [place] [address] Marsiabel Michel MD Moderate persistent asthma without complication (Primary Dx); FARTUN (obstructive sleep apnea); Primary hypertension; Prediabetes; Nonintractable headache, unspecified chronicity pattern, unspecified headache type; Cerebral palsy, unspecified type (CMS/HCC); Wheelchair dependence; Allergic rhinitis due to other allergic trigger, unspecified seasonality; Acquired hammer toe of right foot; Acquired hammer toe of left foot; Ulcer of toe of left foot, unspecified ulcer stage ([facility]) 02/14/2025 Telephone [facility] [address] [place] [address] Marisabel Michel MD 02/14/2025 Travel 02/09/2025 Telephone [facility] [address] [place] [address] Marisabel Michel MD chart prep 01/27/2025 Refill [facility] [address] [place], [place] [phone] Marisabel Michel MD Allergic rhinitis due to other allergic trigger, unspecified seasonality 01/12/2025 Telephone [facility] [address] [place] [address] Marisabel Michel MD Durable Medical Equipment from Last 3 Months Immunizations Immunization Administration [...] Office Visit [facility] [address] [place] [address] Marisabel Michel MD [address] [place] [address] Health Maintenance Due Date Last Done Comments CT Colonography 1970 FIT DNA/Cologuard 1970 FIT 1970 FOBT 1970 Sigmoidoscopy 1970 Pap Smear 1991 HPV/Cotest 2000 Depression Screening 03/29/2025 03/29/2024, 03/29/20 SDOH Screening 03/29/2025 03/29/2024 Alcohol/Substance Use Screening 09/19/2025 09/19/2024 Disability Screening 01/08/2026 01/08/2025 Tobacco Screening 02/14/2026 02/14/2025 Mammogram 03/21/2026 03/21/2024, 03/02/2023, 02/12/2022, Additional history exists Diabetes: Hemoglobin A1C 04/07/2026 025, 08/02/2024, 12/07/2023, Additional history exists Colonoscopy 06/12/2026 06/12/2021 Colorectal Cancer Screening 06/12/2026 Lipid Panel 04/07/2030 04/07/2025, 11/23, 07/09/2023, Additional history exists DTaP/Tdap/Td Vaccines (3 - Td or Tdap) [...] Procedure Name Priority Date/Time Associated Diagnosis Comments COMPREHENSIVE METABOLIC PANEL Routine 04/07/2025 3:01 PM EDT Prediabetes Hypokalemia HEMOGLOBIN A1C Routine 04/07/2025 3:01 PM EDT Prediabetes Screening for diabetes mellitus LIPID PANEL WITH REFLEX TO DIRECT LDL Routine 04/07/2025 3:01 PM EDT Screening for lipid disorders US RENAL BI Routine 04/05/2025 3:59 PM EDT BI MAMMOGRAM SCREENING TOMOSYNTHESIS BILATERAL Routine 03/21/2024 1:10 PM EDT HM COLONOSCOPY Routine 06/12/2021 from Last 3 Months or Most Recently Relevant to Health Maintenance Results * (ABNORMAL) Lipid Panel with Reflex to Direct LDL (04/07/2025 3:01 PM EDT) Triglycerides 100 <150 mg/dL [facility] Comment:Desirable Triglyceri de: less than 150 mg/dLBorderline High Triglyceride 150-199 mg/dLHigh Triglyceride: 200-499 mg/dLVery High Triglyceride: greater than or equal to 5OO mg/dL Cholesterol 196 <200 mg/dL [facility] Comment:Desirable Cholestero l: less than 200 mg/dLBorderline High Cholesterol: 200-239 mg/dLHigh Cholesterol: greater than 239 mg/dL LDL Cholesterol Calculated 130(H) <100 mg/dL [facility] Comment:Desirable LDL: less than 100 mg/dLNear Optimal/Above Optimal LDL: 110- 129 mg/dLBorderline High LDL: 130-159 mg/dLHigh LDL: 160-189 mg/dLVery High LDL: greater than or equal to 190 mg/dL HDL Cholesterol 46 >40 mg/dL [facility] Comment:Desirable HDL: great er than 40 mg/dL Note: This HDL assay may give artificially low results in patients with liver disease. Blood 04/07/2025 3:01 PM EDT 04/07/2025 3:01 PM EDT us Marisabel Michel MD LAB BLOOD ORDERABLES Final Resul t [facility] [address] [place], [place] [phone] * (ABNORMAL) Hemoglobin A1c (04/07/2025 3:01 PM EDT) Hemoglobin A1c 6.3(H) <6.0 % [facility] Comment:Hemoglobin A1C Refer ence Range Adults: 4.8 - 6.0 % Non diabetic: < 6.0 % Goal: < 7.0 %Additional Action Suggested: > 8.0 %Note: Hemoglobin A1c results are invalid for patients with abnormal amounts of HbF. Blood transfusions may impact the HbA1c concentration in the patient sample. Estimated Average Glucose 134 mg/dL [facility] Comment:eAG = Estimated ave rage glucose which is %A1C expressed asaverage glucose, using the formula of the S1N-GqrqpufHrjiqoz Glucose study (ADAG), Diabetes Care, Vol.31,#8,Jun. 2007 Blood Venous blood specimen / Unknown 04/07/2025 3:01 PM EDT 04/07/2025 3:01 PM EDT us Marisabel Michel MD LAB BLOOD ORDERABLES Final Resul t [facility] [address] [place] [address] [phone] * (ABNORMAL) Comprehensive Metabolic Panel (04/07/2025 3:01 PM EDT) Sodium 142 135 - 145 mmol/L [facility] Potassium 3.7 3.3 - 5.1 mmol/L [facility] Chloride 107 96 - 108 mmol/L [facility] Carbon Dioxide 25 22 - 29 mmol/L [facility] Anion Gap 14 12 - 20 [facility] Urea Nitrogen (BUN) 17(H) 9 - 16 mg/dL [facility] Creatinine, Serum 0.64 0.5 - 1.4 mg/dL [facility] Estimated Glomerular Filt Rate >60 [facility] Comment:Chronic Kidney Disea se: Estimated GFR < 60 mL/min/[id number] Kidney Disease: Estimated GFR < 15 mL/min/1.73m2 Glucose 90 60 - 115 mg/dL [facility] Calcium 9.7 8.4 - 10.2 mg/dL [facility] Bilirubin, Total 0.4 0.0 - 1.0 mg/dL [facility] Aspartate Amino Transferase 28 5 - 31 U/L [facility] Alanine Aminotransferase 27 0 - 31 U/L [facility] Total Protein 7.1 6.5 - 8.0 g/dL [facility] Albumin Level 4.2 3.5 - 5.0 g/dL [facility] Alkaline Phosphatase 62 39 - 117 U/L [facility] Blood Venous blood specimen / Unknown 04/07/2025 3:01 PM EDT 04/07/2025 3:01 PM EDT us Marisabel Michel MD LAB BLOOD ORDERABLES Final Resul t [facility] [address] [place] [address] [phone] * US RENAL BI (04/05/2025 3:59 PM EDT) Anatomical Region Laterality Modality Abdomen Ultrasound 04/05/2025 3:59 PM EDT Narrative 04/05/2025 4:00 PM EDT ? [facility] ?[address] ? [place] [address] ? Ultrasound Report ? Signed ? Patient: Chuy Vera,Radha ?MR#: ?? [id number] ? : 1970 ?Acct:[id number] ? Age/Sex: 54 / F ?ADM Date: //25 ? Loc: HO.HMGCX ? Attending Dr: Binh Zelaya MD ? Ordering Physician: Binh Zelaya MD ?? Date of Service: 04/05/25 ?? Procedure(s): US renal BI ?? Accession Number(s): [id number] ? cc: Binh Zelaya MD; Marisabel Michel [...] DD/ 1559 ? TD/TT: 04/05/25 1559 ? Insulation Applicator: ? Procedure Note Donotsulaimaninterpreter, Image - 04/10/2025 [facility] [address] [place] [address] [place] [address] Ultrasound Report Signed Patient: Radha Kimball#: [id number] : 1970Acct:[id number] Age/Sex: 54 / FADM Date: 04/05/25 Loc: HO.HMGCX Attending Dr: Binh Zelaya MD Ordering Physician: Binh Zelaya MD Date of Service: 04/05/25 Procedure(s): US renal BI Accession Number(s): [id number] cc: Binh Zealya MD; Marisabel Michel MD CLINICAL HISTORY: N20.0 [...] Colon MD in OV> 04/05/25 1600 DD/ 1559 TD/TT: 04/05/25 155 Insulation Applicator: us [facility] External Provider IMG US PROCEDURES Edited Result - Final * BI Mammogram Screening Tomosynthesis Bilateral (03/21/2024 1:10 PM EDT) Anatomical Region Laterality Modality Breast Bilateral Mammography 03/21/2024 1:10 PM EDT Narrative 04/17/2024 6:32 AM EDT ? [facility] ? [address] ?[place] [address] ? Mammography Report ? Signed ? Patient: Radha Kimball ?MR#: ?? [id number] ? : 1970 ?Acct:[id number] ? Age/Sex: 53 / F ?ADM Date: 03/21/24 ? Loc: HO.MAMMO ? Attending Dr: Marisabel Michel MD ? Ordering Physician: Marisabel Michel MD ?Results: 1Negative ? Date of Service: 03/21/24 ?Follow Up: 1 Year From Orig ?? inal Mammogram ? Procedure(s): MM tomosynthesis screening BI ?? Accession Number(s): [id number] ? cc: Marisabel Michel MD ? EXAMINATION: [...] 04/17/[address] ? DD/ 1310 ? TD/TT: ? Insulation Applicator: ? Procedure Note Sana Lima - 04/17/2024 [facility] [address] [place], [place] [address] Mammography Report Signed Patient: Radha KimballMR#: [id number] : 1970Acct:[id number] Age/Sex: 53 / FADM Date: 03/21/24 Loc: [facility] Attending Dr: Marisabel Michel MD Ordering Physician: Marisabel Michel MDResults: 1Negative Date of Service: 03/21/24Follow Up: 1 Year From Orig inal Mammogram Procedure(s): MM tomosynthesis screening BI Accession Number(s): [id number] cc: Marisabel Michel MD EXAMINATION: MM SCREENING [...] in OV> 04/17/24 0629 DD/ 1310 TD/TT: Insulation Applicator: Marisabel Michel MD IMG BI PROCEDURES Final Result * Colonoscopy (06/12/2021) Colonoscopy Normal Normal George Lambert MD HEALTH MAINTENANCE Edited Result - Final from Last 3 Months or Most Recently Relevant to Health Maintenance Insurance [facility] [address] [place] [id number] Care Teams Steward/Stewardess Room Relationship Specialty Start Date End Date Marisabel Michel MD [address] [place] [phone] PCP - General Family Medicine 09/04/11
--- OUTSIDE RECORDS SUMMARY | 2025-04-11 12:45 | XMS_ITS | Encounter Summary ---
Author Organization [employer] Address [address] [facility] 7t [place] [address] Care Team Providers Care Cutch Cleaner Name Role Phone Marisabel Michel MD Primary Care Provider [phone] Encounter Details Date Type Department Care Team ([facility] st Contact Info) Description 03/28/2025 Orders Only [facility] [address] [place], [place] [phone] Marisabel Michel MD [address] [place], [place] [phone] Prediabetes (Primary Dx); Screening for lipid disorders; [...] 1:45 PM EDT Office Visit [facility] [address] [place] [address] Marisabel Michel MD [address] [place] [address] documented as of this encounter Procedures Procedure Name Priority Date/Time Associated Diagnosis Comments LIPID PANEL WITH REFLEX TO DIRECT LDL Routine 04/07/2025 3:01 PM EDT Screening for lipid disorders HEMOGLOBIN A1C Routine 04/07/2025 3:01 PM EDT Prediabetes Screening for diabetes mellitus COMPREHENSIVE METABOLIC PANEL Routine 04/07/2025 3:01 PM EDT Prediabetes Hypokalemia documented in this encounter Results * (ABNORMAL) Comprehensive Metabolic Panel (04/07/2025 3:01 PM EDT) Sodium 142 135 - 145 mmol/L [facility] Potassium 3.7 3.3 - 5.1 mmol/L [facility] Chloride 107 96 - 108 mmol/L [facility] Carbon Dioxide 25 22 - 29 mmol/L [facility] Anion Gap 14 12 - 20 [facility] Urea Nitrogen (BUN) 17(H) 9 - 16 mg/dL [facility] Creatinine, Serum 0.64 0.5 - 1.4 mg/dL [facility] Estimated Glomerular Filt Rate >60 [facility] Comment:Chronic Kidney Disea se: Estimated GFR < 60 mL/min/1.86j6Qanluo Kidney Disease: Estimated GFR < 15 mL/min/1.73m2 Glucose 90 60 - 115 mg/dL [facility] Calcium 9.7 8.4 - 10.2 mg/dL [facility] Bilirubin, Total 0.4 0.0 - 1.0 mg/dL [facility] Aspartate Amino Transferase 28 5 - 31 U/L [facility] Alanine Aminotransferase 27 0 - 31 U/L [facility] Total Protein 7.1 6.5 - 8.0 g/dL [facility] Albumin Level 4.2 3.5 - 5.0 g/dL [facility] Alkaline Phosphatase 62 39 - 117 U/L [facility] Blood Venous blood specimen / Unknown 04/07/2025 3:01 PM EDT 04/07/2025 3:01 PM EDT us Marisabel Michel MD LAB BLOOD ORDERABLES Final Resul t [facility] [address] [place] [address] [phone] * (ABNORMAL) Hemoglobin A1c (04/07/2025 3:01 PM EDT) Hemoglobin A1c 6.3(H) <6.0 % [facility] Comment:Hemoglobin A1C Refer ence Range Adults: 4.8 - 6.0 % Non diabetic: < 6.0 % Goal: < 7.0 %Additional Action Suggested: > 8.0 %Note: Hemoglobin A1c results are invalid for patients with abnormal amounts of HbF. Blood transfusions may impact the HbA1c concentration in the patient sample. Estimated Average Glucose 134 mg/dL [facility] Comment:eAG = Estimated ave rage glucose which is %A1C expressed asaverage glucose, using the formula of the Q8E-GrbgojoYoyfddx Glucose study (ADAG), Diabetes Care, Vol.31,#8,Jun. 2007 Blood Venous blood specimen / Unknown 04/07/2025 3:01 PM EDT 04/07/2025 3:01 PM EDT Marisabel Michel MD LAB BLOOD ORDERABLES Final Resul t Performing Organization Address [facility] de Phone Number [facility] [address] [place] [phone] * (ABNORMAL) Lipid Panel with Reflex to Direct LDL (04/07/2025 3:01 PM EDT) Triglycerides 100 <150 mg/dL [facility] Comment:Desirable Triglyceri de: less than 150 mg/dLBorderline High Triglyceride 150-199 mg/dLHigh Triglyceride: 200-499 mg/dLVery High Triglyceride: greater than or equal to 5OO mg/dL Cholesterol 196 <200 mg/dL [facility] Comment:Desirable Cholestero l: less than 200 mg/dLBorderline High Cholesterol: 200-239 mg/dLHigh Cholesterol: greater than 239 mg/dL LDL Cholesterol Calculated 130(H) <100 mg/dL [facility] Comment:Desirable LDL: less than 100 mg/dLNear Optimal/Above Optimal LDL: 110- 129 mg/dLBorderline High LDL: 130-159 mg/dLHigh LDL: 160-189 mg/dLVery High LDL: greater than or equal to 190 mg/dL HDL Cholesterol 46 >40 mg/dL [facility] Comment:Desirable HDL: great er than 40 mg/dL Note: This HDL assay may give artificially low results in patients with liver disease. Blood 04/07/2025 3:01 PM EDT 04/07/2025 3:01 PM EDT Marisabel Michel MD LAB BLOOD ORDERABLES Final Resul t Performing Organization Address [facility] Co de Phone Number [facility] [address] [place] [phone] documented in this encounter Visit Diagnoses Diagnosis Prediabetes- Primary Other abnormal glucose Screening for lipid disorders Screening for diabetes mellitus Hypokalemia Hypopotassemia documented in this encounter Additional Health Concerns Assessment Noted Time PHQ-9 Depression Total Score: 0 03/29/20 24 3:23 PM EDT documented as of this encounter Care Teams Cutch Cleaner Relationship Specialty Start Date End Date Marisabel Michel MD [address] [place] [phone] PCP - General Family Medicine 09/04/11 documented as of this encounter
--- OUTSIDE RECORDS SUMMARY | 2025-04-11 12:45 | XMS_ITS | Encounter Summary ---
Author Organization [employer] Address [address] [facility] 7t [place] [address] Care Team Providers Care Kettle Chipper Name Role Phone Marisabel Michel MD Primary Care Provider [phone] Reason for Referral * Imaging (Urgent) - Closed Specialty Diagnoses / Procedures Referred By Contac t Referred To Contact Radiology Diagnoses Acute pain of right knee Procedures MR Knee w/o Contrast Right Marisabel Michel MD [address] [place] [address] Phone: tel: fax: [facility] [address] [place] [address] Phone: tel: fax: Referral ID Status Reason Start Date Expiration Date Visits Re quested Visits Authorized [id number] Closed 05/18/2024 05/18/2025 1 1 Encounter Details Date Type Department Care Team (Late st Contact Info) Description 05/18/2024 Orders Only [facility] [address] [place], [place] [phone] Marisabel Michel MD [address] [place] [address] Acute pain of right knee [...] Description 06/05/2025 1:45 PM EDT Office Visit [facility] [address] [place] [address] Marisabel Michel MD [address] [place] [address] documented as of this encounter Procedures Procedure Name Priority Date/Time Associated Diagnosis Comments MR KNEE WO CONTRAST RIGHT Urgent 05/25/2024 3:33 PM EDT Acute pain of right knee documented in this encounter Results * MR Knee w/o Contrast Right (05/25/2024 3:33 PM EDT) Anatomical Region Laterality Modality Magnetic Resonan ce 05/25/2024 3:33 PM EDT Narrative 05/25/2024 4:16 PM EDT ? [facility] ?[address] ?[place] [address] ? Magnetic Resonance Report ? Signed ? Patient: Radha Kimball ?MR#: ?? [id number] ? : 1970 ?Acct:[id number] ? Age/Sex: 53 / F ?ADM Date: 05/25/24 ? Loc: HO.MRI ? Attending Dr: Marisabel Michel MD ? Ordering Physician: Marisabel Michel MD ?? Date of Service: 05/25/24 ?? Procedure(s): MR knee RT wo con ?? Accession Number(s): [id number] ? cc: Marisabel Michel MD ? EXAMINATION: [...] 05/25/243 ? DD/ 1533 ? TD/TT: ? Manager Asset: DM ? Procedure Note Clarence, Sana - 05/25/2024 [place] [address] Magnetic Resonance Report Signed Patient: Radha Kimball#: [id number] : 1970Acct:[id number] Age/Sex: 53 / FADM Date: 05/25/24 Loc: HO.MRI Attending Dr: Marisabel Michel MD Ordering Physician: Marisabel Michel MD Date of Service: 05/25/24 Procedure(s): MR knee RT wo con Accession Number(s): [id number] cc: Marisabel Michel MD EXAMINATION: MR KNEE [...] MD inOV> 05/25/24 1613 DD/ 1533 TD/TT: Manager Asset: SANDHYA us Marisabel Michel MD IMG MRI PROCEDURES Final Result documented in this encounter Visit Diagnoses Diagnosis Acute pain of right knee- Primary Primary hypertension Unspecified essential hypertension documented in this encounter Additional Health Concerns Assessment Noted Time PHQ-9 Depression Total Score: 0 03/29/20 24 3:23 PM EDT documented as of this encounter Care Teams Kettle Chipper Relationship Specialty Start Date End Date Marisabel Michel MD [address] [place] [phone] PCP - General Family Medicine 09/04/11 documented as of this encounter
--- OUTSIDE RECORDS SUMMARY | 2025-04-11 12:45 | XMS_ITS | Encounter Summary ---
Author Organization [employer] Address 75 [facility] 7t [place] [address] Care Team Providers Care Functional Manager Name Role Phone Marisabel Michel MD Primary Care Provider [phone] Reason for Referral * Imaging (Urgent) - Canceled Specialty Diagnoses / Procedures Referred By Vee t Referred To Contact Radiology Diagnoses Elevated erythrocyte sedimentation rate Acute right ankle pain Cellulitis of right leg Procedures MR Ankle w/ and w/o Contrast Right Marisabel Michel MD [address] [place] [address] Phone: tel: fax: [address] Phone: tel: fax: Referral ID Status Reason Start Date Expiration Date V isits Requested Visits Authorized [id number] Canceled 07/19/2024 07/19/2025 1 1 * Imaging (Urgent) - New Request Specialty Diagnoses / Procedures Referred By Contac t Referred To Contact Radiology Diagnoses Elevated erythrocyte sedimentation rate Acute right ankle pain Cellulitis of right leg Procedures MRI LOWER LEG / TIBIA FIBULA RIGHT W WO CONTRAST Marisabel Michel MD [address] [place] [address] Phone: tel: fax: [address] Phone: tel: fax: Referral ID Status Reason Start Date Expiration Date V isits Requested Visits Authorized [id number] New Request 07/19/2024 07/19/2025 1 1 Encounter Details Date Type Department Care Team ([facility] st Contact Info) Description 07/15/2024 Orders Only [facility] [address] [place] [address] Marisabel Michel MD [address] [place] [address] Elevated erythrocyte sedimentation rate (Primary Dx); Cellulitis [...] housing situation today? I have diane arleth 03/29/[address] you li [...] Description 06/05/2025 1:45 PM EDT Office Visit [facility] [address] [place] [address] Marisabel Michel MD [address] [place] [address] Scheduled Orders Name Type Priority Associated Diagnoses [...] Vitamin D 25-OH Total 54.6 >30 ng/mL [facility] Comment:Health Based Referen ce Values*< 20 ng/mL Sbfyfvljr66-30 ng/mL Insufficient> 30 ng/mL Sufficient*Ashok SMITH. N [...] ORDERABLES Final Resul t Performing Organization Address [facility]/ZIP Co de Phone Number [facility] [address] [place] [phone] * (ABNORMAL) PTH, Intact Without Calcium (08/02/2024 5:05 PM EDT) Parathyroid Hormone, Intact 78.5(H) 8.7 - 77.1 pg/mL [facility] Blood Venous blood specimen / Unknown 08/02/2024 5:05 PM EDT 08/02/2024 5:10 PM EDT Marisabel Michel MD LAB BLOOD ORDERABLES Final Resul t Performing Organization Address City/[facility]/ZIP Co de Phone Number [facility] [address] [place] [phone] * TSH (08/02/2024 5:05 PM EDT) Thyroid Stimulating Hormone 2.46 0.32 - 4.0 uIU/mL [facility] Comment:TSH 3rd Generation ( [facility]) Blood Venous blood specimen / Unknown 08/02/2024 5:05 PM EDT 08/02/2024 5:10 PM EDT Marisabel Michel MD LAB BLOOD ORDERABLES Final Resul t Performing Organization Address [facility]/ZIP Co de Phone Number [facility] [address] [place] [phone] * (ABNORMAL) Sed Rate by Modified Westergren (08/02/2024 5:05 PM EDT) Erythrocyte Sedimentation Rate 71(H) 0 - 20 MM/HR [facility] Comment:Patients with polycy themia and many hemoglobin abnormalitiesmay have depressed sed rates whereas patients with anemiamay have elevated sed rates. Blood Venous blood specimen / Unknown 08/02/2024 5:05 PM EDT 08/02/2024 5:10 PM EDT us Marisabel Michel MD LAB BLOOD ORDERABLES Final Resul t Performing Organization Address [facility] Co de Phone Number [facility] [address] [place] [phone] * (ABNORMAL) C-reactive Protein (08/02/2024 5:05 PM EDT) C Reactive Protein 1.90(H) < or = 0.50 mg/dL [facility] Blood Venous blood specimen / Unknown 08/02/2024 5:05 PM EDT 08/02/2024 5:10 PM EDT Marisabel Michel MD LAB BLOOD ORDERABLES Final Resul t Performing Organization Address City/[facility]/ZIP Co de Phone Number [facility] [address] [place] [phone] * T4, Free (07/15/2024 3:24 PM EDT) Free T4 (Free Thyroxine) 1.45 0.71 - 1.85 ng/dL [facility] Blood Venous blood specimen / Unknown 07/15/2024 3:24 PM EDT 07/15/2024 3:26 PM EDT Marisabel Michel MD LAB BLOOD ORDERABLES Final Resul t [facility] [address] [place] [phone] [phone] documented in this encounter Visit Diagnoses Diagnosis Elevated erythrocyte sedimentation rate- Primary Elevated sedimentation rate Cellulitis of lower extremity, unspecified laterality Abnormal TSH Fever, unspecified fever cause Acute right ankle pain Cellulitis of right leg documented in this encounter Additional Health Concerns Assessment Noted Time PHQ-9 Depression Total Score: 0 03/29/20 24 3:23 PM EDT documented as of this encounter Care Teams Functional Manager Relationship Specialty Start Date End Date Marisabel Michel MD [address] [place] [phone] PCP - General Family Medicine 09/04/11 documented as of this encounter
--- OUTSIDE RECORDS SUMMARY | 2025-04-11 12:45 | XMS_ITS | Encounter Summary ---
Author Organization [employer] Address 75 [facility] 7t [place] [address] Care Team Providers Care Cross Tie Cutter Name Role Phone Marisabel Michel MD Primary Care Provider [phone] Encounter Details Date Type Department Care Team (Late st Contact Info) Description 01/08/2023 Orders Only [facility] [address] [place] [phone] Marisabel Michel MD [address] [place] [address] [phone] Allergic rhinitis due to other allergic trigger, [...] Office Visit [facility] [address] [place] [address] [phone] Marisabel Michel MD [address] [place] [address] [phone] documented as of this encounter Visit Diagnoses Diagnosis Allergic rhinitis due to other allergic trigger, unspecified seasonality- Primary Moderate persistent asthma without complication documented in this encounter Care Teams Cross Tie Cutter Relationship Specialty Start Date End Date Marisabel Michel MD [address] [place] [address] PCP - General Family Medicine 09/04/11 documented as of this encounter
--- OUTSIDE RECORDS SUMMARY | 2025-04-11 12:45 | XMS_ITS | Encounter Summary ---
Author Organization [employer] Address 75 [facility] 7t [place] [address] Care Team Providers Care Wing Scorer Name Role Phone Marisabel Michel MD Primary Care Provider [phone] Encounter Details Date Type Department Care Team ([facility] st Contact Info) Description 08/01/2024 Orders Only [facility] [address] [place], [place] [phone] Marisabel Michel MD [address] [place], [place] [phone] Prediabetes (Primary Dx) Social History Tobacco Use [...] Visit [facility] [address] [place] [phone] Marisabel Michel MD [address] [place] [address] documented as of this encounter Visit Diagnoses Diagnosis Prediabetes- Primary Other abnormal glucose documented in this encounter Additional Health Concerns Assessment Noted Time PHQ-9 Depression Total Score: 0 03/29/20 24 3:23 PM EDT documented as of this encounter Care Teams Wing Scorer Relationship Specialty Start Date End Date Marisabel Michel MD [address] [place] [phone] PCP - General Family Medicine 09/04/11 documented as of this encounter
--- OUTSIDE RECORDS SUMMARY | 2025-04-11 12:45 | XMS_ITS ---
Author Organization [facility] Address [address] [place] [address] Care Team Providers Care Lead Atg Developer Name Role Phone Marisabel Michel Primary Care Provider Yoni Glover Unavailable [phone] Allergies Allergen (clinical drug ingredient) Drug/Non Drug [...] Orally Once a day Active Saline Nasal [place] as needed A ctive SUMAtriptan Succinate Active Naproxen Active Ondansetron HCl Acti ve PriLOSEC OTC Active ProAir HFA as needed Active Proctofoam as needed Active Ipratropium [place] Active Jock Itch 1 % 1 application [...] Type 2 diabetes mellitus with peripheral angiopathy (335832781) Type 2 diabetes mellitus with diabetic peripheral angiopathy without gangrene (E11.51) Active confirmed Q7(A), Q8(2B), Q9(1B,2C) Problem Acquired hammer toe of right foot (581587977648 9105) Other hammer toe(s) (acquired), right foot (M20.41) Active confirmed Problem Acquired hammer toe of left foot (971990212379 9103) Other hammer toe(s) (acquired), left foot (M20.42) Active confirmed Problem Ulcer of toe of left foot (disorder) (192922322530 08128) Skin ulcer of toe of left foot, limited to breakdown of skin (L97.521) Active confirmed Response to treatment Nonapplicable Vital Signs Height 5ft in 01/30/2025 Weight 178 lbs 01/30/2025 BMI 34.76 kg/m2 01/30/2025 Blood pressure systolic 127 mm Hg 01/31/20 25 Blood pressure diastolic 76 mm Hg 025 Procedures Procedure Date Ordered Date Performed Result Body Sit e 54301-LKLCRRJ NAIL, 6 OR MORE 01/30/2025 N/A 50968- Debride <25 sq cm 01/30/2025 N/A 07470-GIXP SKIN LESIONS, 2 TO 4 01/30/2025 N/A Encounters Encounter Location Date Provider Diagnosis [facility] [address] [place] [phone] 01/30/2025 Yoni Bhatt Type 2 diabetes mellitus [...] INSTRUCTIONS.pdf) Pending Test Test Name Order Date 63894-JZXUDGQ NAIL, 6 OR MORE 01/30/2025 09867- Debride <25 sq cm 01/30/2025 83205-USEB SKIN LESIONS, 2 TO 4 01/31/20 25 Next Appt Details Follow Up: 3 Months,To see Gabino Bustillo, Reason: Provider Name:Yoni Bhatt , 05/08/2025 01:30:00 PM, [address] [facility], [address], [place], [address], Procedure Notes * Category Sub-Category Detail Notes [...] of a nail nipper and/or dremel-type tool and cutter grinder, to a more viable healthy nail plate [...] to maintain effectiveness in symptomatic relief - 54563 Debride skin< 25 sq cm Open wound [...] of the wound post debridement is stable (37893) Keratoma Treatment Parring or Cutting o f [...] instrumentation by the physician of record - 64723, Q8 Progress Notes * Radha JACKDOB: 1 (54 yo F)Acc No.[id number]:01/30/2025 Progress Note Patient:?Radha JACK Provider:?Yoni Bhatt DPM :1970???Age:54 Y???Sex:Female D ate:01/30/2025 Address[address] [place], [place] [address] Pcp:Marisabel Michel Subjective: * Chief Complaints: * [...] * Hospitalization/Major Diagno stic Procedure:?ER in [place] 02/2018[facility] Care- Pain in ankle- negetive ultrasound and x-ray 04/2019[facility]- leg infection 07/19-07/25 * Family History:?Mother: [...] Gas Relief hydrOXYzine HCl Ibuprofen Ipratropium-Albuterol Ipratropium [place] Jock Itch 1 % Cream 1 application to affected area Externally Twice a day Ketotifen Fumarate Montelukast Sodium Naproxen Ondansetron HCl PriLOSEC OTC ProAir HFA , Notes to Pharmacist: as neededProctofoam , Notes to Pharmacist: as neededSaline Nasal [place] , Notes to Pharmacist: as neededSUMAtriptan Succinate [...] HCl Taking Ibuprofen Taking Ipratropium-Albuterol Taking Ipratropium [place] Taking Jock Itch 1 % Cream 1 application to affected area Externally Twice a day Taking Ketotifen Fumarate Taking Montelukast Sodium Taking Naproxen Taking Ondansetron HCl Taking PriLOSEC OTC Taking ProAir HFA , Notes to Pharmacist: as neededTaking Proctofoam , Notes to Pharmacist: as neededTaking Saline Nasal [place] , Notes to Pharmacist: as neededTaking SUMAtriptan [...] mellitus with diabetic peripheral angiopathy without gangrene?Procedure: 50938-ZWSK SKIN LESIONS, 2 TO 4 3.?Tinea unguium?Procedure: 71685-XYEJMDE NAIL, 6 OR MORE 4.?Skin ulcer of toe of left foot, limited to breakdown of skin?Procedure: 57622- Debride <25 sq cm Notes: Patient Educated [...] of a nail nipper and/or dremel-type tool and cutter grinder, to a more viable healthy nail plate [...] to maintain effectiveness in symptomatic relief - 03999.?Debride skin< 25 sq cm:?Open wound?Physician of record [...] of the wound post debridement is stable (92830).?Keratoma Treatment:?Parring or Cutting of Benign Hyperkeratotic Lesion(s)?(-56) [...] instrumentation by the physician of record - 60845, Q8.? * Procedure Codes:?96949 DEBRI DE NAIL, 6 OR MORE, Modifiers: XS 60013 ACTIVE WOUND CARE/20 CM OR <, Modifiers: XS 18713 TRIM SKIN LESIONS, 2 TO 4, Modifiers: [...] Bhatt DPM Date:?2024 Generated for Deny lou/Klaudia/David on:?04/11/2025 12:44 PM EDT History and Physical Notes * [...]
--- OUTSIDE RECORDS SUMMARY | 2025-04-11 12:45 | XMS_ITS | Patient Health Record ---
Author Organization [facility] Address [address] [place] [address] Care Team Providers Care Supervisor Cigarette Making Department Name Role Phone Anand DIOR, Marisabel Primary Care Provider George Hyman Unavailable [phone] Reason For Referral No Information Medications Medication [...] tablet Orally Once a day Active Nystatin 139796 UNIT/ML 4 ml Mouth/Throa t Twice a [...] W/U Status Risk Notes Problem Esophageal reflux (459441467) Esophageal reflux (K21.9) Active confirmed Problem 819956004 Encounter for screening for malignant neoplasm of colon (Z12.11) Active confirmed Problem 921815110 Gastroesophageal reflux disease, esophagitis presence not specified (K21.9) Active confirmed Problem 277984587 Family history o f colon cancer (Z80.0) Active confirmed Problem Benign neoplasm of stomach (04094346) Gastric polyps (K31.7) Active confirmed Problem 45473351 Oropharyngeal dysphagia (R13.12) Active confirmed Problem 019663233 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 Problem Diverticulosis of sigmoid colon (580026766) Diverticulosis of sigmoid colon (K57.30) Active confirmed [...] [facility] [address] [place] [address] [id number] CARL JACK Self - patient is the insured MEDICAID OF [employer] [address] [place] [phone] [id number] CARL JACK Self - patient is the insured Medical (General) History Medical History History ICD Code Alopecia Positive H.pylori serology in 07/2013-Rx' d with PPI and antibiotics Asthma Denies AL,DM,CVA,renal disease Kidney stones-ES[facility] Neg colonoscopy in 2004, [...]
--- OUTSIDE RECORDS SUMMARY | 2025-04-11 12:45 | XMS_ITS | Encounter Summary ---
Author Organization [employer] Address 75 [facility] 7t [place] [address] Care Team Providers Care Occupational Therapy Assistant Name Role Phone Marisabel Michel MD Primary Care Provider [phone] Encounter Details Date Type Department Care Team ([facility] st Contact Info) Description 08/23/2024 Orders Only [facility] MEDICINE [address] [place], [place] [phone] Marisabel Michel MD 230 [place] [address] Social History Tobacco Use Types Packs/Day Years [...] Description 06/05/2025 1:45 PM EDT Office Visit [facility] MEDICINE [address] [place] [address] Marisabel Michel MD [address] [place] [address] documented as of this encounter Visit Diagnoses Not on filedocumented in this encounter Additional Health Concerns Assessment Noted Time PHQ-9 Depression Total Score: 0 03/29/20 24 3:23 PM EDT documented as of this encounter Care Teams Occupational Therapy Assistant Relationship Specialty Start Date End Date Marisabel Michel MD [address] [place] [address] [phone] PCP - General Family Medicine 09/04/11 documented as of this encounter
--- OUTSIDE RECORDS SUMMARY | 2025-04-11 12:45 | XMS_ITS | Encounter Summary ---
Author Organization [employer] Address 75 [facility] 7t [place] [address] Care Team Providers Care Sheep Killer Name Role Phone Marisabel Michel MD Primary Care Provider [phone] Reason for Visit * Reason Comments Med Refill Encounter Details Date Type Department Care Team ([facility] st Contact Info) Description 11/06/2023 Refill [facility] MEDICINE 230 [place], [place] [phone] Vicky Sage ANP 230 [place], [place] [phone] Social History Tobacco Use Types Packs/Day Years [...] Description 06/05/2025 1:45 PM EDT Office Visit [facility] MEDICINE 230 [place] [address] Marisabel Michel MD 230 [place] [address] documented as of this encounter Visit Diagnoses Not on filedocumented in this encounter Additional Health Concerns Assessment Noted Time PHQ-9 Depression Total Score: 2 02/25/20 23 1:12 PM EDT documented as of this encounter Care Teams Sheep Killer Relationship Specialty Start Date End Date Marisabel Michel MD 230 [place] [address] PCP - General Family Medicine 09/04/11 documented as of this encounter
--- OUTSIDE RECORDS SUMMARY | 2025-04-11 12:45 | XMS_ITS | Encounter Summary ---
Author Organization [employer] Address 75 [facility] 7t [place] [address] Care Team Providers Care Recruitment Intern Name Role Phone Marisabel Michel MD Primary Care Provider [phone] Encounter Details Date Type Department Care Team (Late Contact Info) Description 12/02/2022 Orders Only [facility] MEDICINE [address] [place] [address] [phone] Marisabel Michel MD [address] [place] [address] [phone] Moderate persistent asthma without complication (Primary Dx); [...] Visit [facility] MEDICINE [address] [place] [address] [phone] Marisabel Michel MD 230 [place], [place] [phone] documented as of this encounter Visit Diagnoses Diagnosis Moderate persistent asthma without complication- Primary Allergic rhinitis due to other allergic trigger, unspecified seasonality Intrinsic atopic dermatitis documented in this encounter Care Teams Recruitment Intern Relationship Specialty Start Date End Date Marisable Michel MD [address] [place] [address] [phone] PCP - General Family Medicine 09/04/11 documented as of this encounter
--- OUTSIDE RECORDS SUMMARY | 2025-04-11 12:45 | XMS_ITS | Encounter Summary ---
Author Organization [employer] Address [address] [facility] [address] 7t [place] [address] Care Team Providers Care Air Saw Operator Name Role Phone Marisabel Michel MD Primary Care Provider [phone] Encounter Details Date Type Department Care Team ([facility] st Contact Info) Description 03/18/2024 Orders Only [facility] MEDICINE 230 [place], [place] [phone] Marisabel Michel MD 230 [place], [place] [phone] Social History Tobacco Use Types Packs/Day Years [...] Description 06/05/2025 1:45 PM EDT Office Visit [facility] MEDICINE [address] [place] [address] Marisabel Michel MD [address] [place] [address] documented as of this encounter Procedures Procedure Name Priority Date/Time Associated Diagnosis Comments BI MAMMOGRAM SCREENING TOMOSYNTHESIS BILATERAL Routine 03/21/2024 1:10 PM EDT documented in this encounter Results * BI Mammogram Screening Tomosynthesis Bilateral (03/21/2024 1:10 PM EDT) Anatomical Region Laterality Modality Breast Bilateral Mammography 03/21/2024 1:10 PM EDT Narrative 04/17/2024 6:32 AM EDT ? [facility] ? [address] ?[place] [address] ? Mammography Report ? Signed ? Patient: Chuy Vera,Radha ?MR#: ?? [id number] ? : 1970 ?Acct:[id number] ? Age/Sex: 53 / F ?ADM Date: 04/29/24 ? Loc: HO.MAMMO ? Attending Dr: Marisabel Michel MD ? Ordering Physician: Marisabel Michel MD ?Results: 1Negative ? Date of Service: 03/21/24 ?Follow Up: 1 Year From Orig ?? inal Mammogram ? Procedure(s): MM tomosynthesis screening BI ?? Accession Number(s): [id number] ? cc: Marisabel Michel MD ? EXAMINATION: [...] by Stephanie Garcia MD in OV> ? 05/26/24 0629 ? DD/ 1310 ? TD/TT: ? Sales Order Clerk: ? Procedure Note Donotuseinterpreter, Image - 04/17/2024 [facility] [address] [place] [address] Mammography Report Signed Patient: Radha KimballMR#: [id number] : 1970Acct:[id number] Age/Sex: 53 / FADM Date: 03/21/24 Loc: HO.MAMMO Attending Dr: Marisabel Michel MD Ordering Physician: Marisabel Michel MDResults: 1Negative Date of Service: 03/21/24Follow Up: 1 Year From Orig inal Mammogram Procedure(s): MM tomosynthesis screening BI Accession Number(s): [id number] cc: Marisabel Michel MD EXAMINATION: MM SCREENING [...] in OV> 04/17/24 0629 DD/ 1310 TD/TT: Sales Order Clerk: us Marisabel Michel MD IMG BI PROCEDURES Final Result documented in this encounter Visit Diagnoses Not on filedocumented in this encounter Additional Health Concerns Assessment Noted Time PHQ-9 Depression Total Score: 2 02/25/20 23 1:12 PM EDT documented as of this encounter Care Teams Air Saw Operator Relationship Specialty Start Date End Date Marisabel Michel MD [address] [place] [address] PCP - General Family Medicine 09/04/11 documented as of this encounter
--- OUTSIDE RECORDS SUMMARY | 2025-04-11 12:45 | XMS_ITS | Encounter Summary ---
Author Organization [employer] Address 75 [facility] 7t [place] [address] Care Team Providers Care Clinical Technologist Name Role Phone Marisabel Michel MD Primary Care Provider [phone] Encounter Details Date Type Department Care Team ([facility] st Contact Info) Description 09/29/[address] [facility] MEDICINE 230 [place], [place] [phone] Marisabel Michel MD 230 [place] [address] Social History Tobacco Use Types Packs/Day Years [...] 06/05/2025 1:45 PM EDT Office Visit [facility] MEDICINE [address] [place] [address] Marisabel Michel MD [address] [place] [address] documented as of this encounter Visit Diagnoses Not on filedocumented in this encounter Additional Health Concerns Assessment Noted Time PHQ-9 Depression Total Score: 0 03/29/20 24 3:23 PM EDT documented as of this encounter Care Teams Clinical Technologist Relationship Specialty Start Date End Date Marisabel Michel MD [address] [place] [phone] PCP - General Family Medicine 09/04/11 documented as of this encounter
--- OUTSIDE RECORDS SUMMARY | 2025-04-11 12:45 | XMS_ITS | Encounter Summary ---
Author Organization [employer] Address 75 [facility] 7 [place] [address] Care Team Providers Care Enamel Burner Name Role Phone Marisabel Michel MD Primary Care Provider [phone] Encounter Details Date Type Department Care Team ([facility] st Contact Info) Description 10/04/2024 Orders Only [facility] MEDICINE 230 [place] [address] Lexie Lopez, PharmD 230 [place] [address] Social History Tobacco Use Types Packs/Day Years [...] 1:45 PM EDT Office Visit [facility] MEDICINE [address] [place] [address] Marisabel Michel MD 230 [place] [address] documented as of this encounter Visit Diagnoses Not on filedocumented in this encounter Additional Health Concerns Assessment Noted Time PHQ-9 Depression Total Score: 0 03/29/20 24 3:23 PM EDT documented as of this encounter Care Teams Enamel Burner Relationship Specialty Start Date End Date Marisabel Michel MD 230 [place] [address] PCP - General Family Medicine 09/04/11 documented as of this encounter
--- OUTSIDE RECORDS SUMMARY | 2025-04-11 12:45 | XMS_ITS ---
Author Organization [facility] Address [address] [place] [address] Care Team Providers Care Air Conditioning Engineer Name Role Phone Marisabel Michel Primary Care Provider UnavailYoni Dneg Unavailable [phone] Halle Bustillo Unavailable [phone] REASON FOR VISIT Seen Sooner Encounters Encounter Location Date [facility] [address] 03/03/2025 Halle Bustillo Plan Of Treatment Next Appt Details Provider Name:Yoni Bhatt , 05/08/2025 01:30:00 PM, [address] [place] [address], [phone], Progress Notes * Radha JACKDOB: 1 (54 yo F)Acc No.[id number]:03/03/2025 Progress Note Patient:?Radha JACK Provider:?Halle Bustillo DPM :1970???Age:54 Y???Sex:Female D ate:03/03/2025 Address:[address] [place] [address] Pcp:Marisabel Michel Subjective: * Chief Complaints: * [...] DPM Date:?0 03/03/2025 Generated for Deny lou/Klaudia/David on:?04/11/2025 12:44 PM EDT
--- OUTSIDE RECORDS SUMMARY | 2025-04-11 12:45 | XMS_ITS | Encounter Summary ---
Author Organization [employer] Address 75 [facility] 7t [place] [address] Care Team Providers Care Pasteuriser Operator Name Role Phone Marisabel Michel MD Primary Care Provider [phone] Reason for Referral * Consultation (Routine) - Closed Specialty Diagnoses / Procedures Referred By Contac t Referred To Contact Pharmacy Diagnoses Moderate persistent asthma without complication Prediabetes Primary hypertension Polypharmacy Marisabel Michel MD [address] [place] [address] Phone: tel: fax: Referral ID Status Reason Start Date Expiration Date V isits Requested Visits Authorized [id number] Closed Continuity of Care 09/09/2024 09/09/2025 6 6 Encounter Details Date Type Department Care Team ([facility] st Contact Info) Description 09/09/2024 Orders Only [facility] MEDICINE [address] [place] [address] [phone] Marisabel Michel MD [address] [place], [place] [phone] Moderate persistent asthma without complication (Primary Dx); [...] 06/05/2025 1:45 PM EDT Office Visit [facility] MEDICINE [address] [place] [address] Marisabel Michel MD [address] [place] [address] Scheduled Referrals Name Type Priority Associated Diagnoses [...] documented as of this encounter Care Teams Pasteuriser Operator Relationship Specialty Start Date End Date Marisabel Michel MD [address] [place] [address] PCP - General Family Medicine 09/04/11 documented as of this encounter
--- OUTSIDE RECORDS SUMMARY | 2025-04-11 12:45 | XMS_ITS | Encounter Summary ---
Author Organization [employer] Address [address] [facility] [address] 7t [place] [address] Care Team Providers Care Nitriles Lab Technician Name Role Phone Marisabel Michel MD Primary Care Provider [phone] Encounter Details Date Type Department Care Team ([facility] st Contact Info) Description 10/26/2023 Orders [address] [facility] MEDICINE 230 [place], [place] [phone] Marisabel Michel MD 230 [place], [place] [phone] Social History Tobacco Use Types Packs/Day Years [...] PM EDT Office Visit [facility] MEDICINE 230 [place] [address] Marisabel Michel MD 230 [place] [address] documented as of this encounter Visit Diagnoses Not on filedocumented in this encounter Additional Health Concerns Assessment Noted Time PHQ-9 Depression Total Score: 2 02/25/20 23 1:12 PM EDT documented as of this encounter Care Teams Nitriles Lab Technician Relationship Specialty Start Date End Date Marisabel Michel MD 230 [place] [address] PCP - General Family Medicine 09/04/11 documented as of this encounter
--- OUTSIDE RECORDS SUMMARY | 2025-04-11 12:45 | XMS_ITS | Encounter Summary ---
Author Organization [employer] Address 75 [facility] 7t [place] [address] Care Team Providers Care Service Order Clerk Name Role Phone Marisabel Michel MD Primary Care Provider Reason for Referral * Consultation (Urgent) - Closed Specialty Diagnoses / Procedures Referred By Contac t Referred To Contact Diagnoses Cellulitis of right lower leg Pain in right lower leg Marisabel Michel MD 230 [place] [address] Phone: tel: fax: Ester Palm MD [address] [facility] [address] [place] [address] Phone: tel: Referral ID Status Reason Start Date Expiration Date V isits Requested Visits Authorized [id number] Closed Specialty Services Required 08/29/2024 08/29/2025 1 1 Encounter Details Date Type Department Care Team (Late st Contact Info) Description 08/29/2024 Orders Only [facility] MEDICINE 230 [place], [place] [phone] Marisabel Michel MD 230 [place], [place] [phone] Cellulitis of right lower leg (Primary Dx); [...] [facility] MEDICINE [address] [place] [address] Marisabel Michel MD 230 [place] [address] Scheduled Referrals Name Type Priority Associated Diagnoses [...] documented as of this encounter Care Teams Service Order Clerk Relationship Specialty Start Date End Date Marisabel Michel MD 230 [place] [address] PCP - General Family Medicine 09/04/11 documented as of this encounter
--- OUTSIDE RECORDS SUMMARY | 2025-04-11 12:45 | XMS_ITS | Encounter Summary ---
Author Organization [employer] Address [address] [place] [address] 7t [place] [address] Care Team Providers Care Cooling Tower Operator Name Role Phone Marisabel Michel MD Primary Care Provider [phone] Reason for Referral * Consultation (Routine) - Closed Specialty Diagnoses / Procedures Referred By Contcarlos t Referred To Contact Diagnoses Sinusitis, unspecified chronicity, unspecified location Marisabel Michel MD 230 [place] [address] Phone: tel: fax: Jamshid Aly [address] [place] [address] Drive [address] [place], [place] [address] Phone: tel: fax: Referral ID Status Reason Start Date Expiration Date V isits Requested Visits Authorized [id number] Closed Specialty Services Required 04/22/2024 04/22/2025 1 1 Encounter Details Date Type Department Care Team (Late st Contact Info) Description 04/22/2024 Orders Only [facility] MEDICINE 230 [place], [place] [phone] Marisabel Michel MD 230 [place], [place] [phone] Sinusitis, unspecified chronicity, unspecified location (Primary Dx) [...] 06/05/2025 1:45 PM EDT Office Visit [facility] MEDICINE 230 [place] [address] Marisabel Michel MD [address] [place] [address] Scheduled Referrals Name Type Priority Associated Diagnoses [...] EDT Narrative 05/10/2024 5:32 PM EDT ? [facility] ?[address] ?[place] [address] ? Ultrasound Report ? Signed ? Patient: Radha Kimball ?MR#: ?? [id number] ? : 1970 ?Acct:[id number] ? Age/Sex: 53 / F ?ADM Date: 05/10/24 ? Loc: HO.XRAY ? Attending Dr: Marisabel Michel MD ? Ordering Physician: Marisabel Michel MD ?? Date of Service: 05/10/24 ?? Procedure(s): US venous duplex LE RT ?? Accession Number(s): [id number] ? cc: Marisabel Michel MD ? EXAMINATION: [...] MD in OV> ?05/10/24 1728 ? DD/ ? TD/TT: ? Electrical & Instrumentation Supervisor: BA ? Procedure Note Donotuseinterpreter, Image - 05/10/[address] [address] Ultrasound Report Signed Patient: Radha KimballMR#: [id number] : 1970Acct:[id number] Age/Sex: 53 / FADM Date: 05/10/24 Loc: HO.XRAY Attending Dr: Marisabel Michel MD Ordering Physician: Marisabel Michel MD Date of Service: 05/10/24 Procedure(s): US venous duplex LE RT Accession Number(s): [id number] cc: Marisabel Michel MD EXAMINATION: US VENOUS [...] in OV> 05/10/24 1728 DD/ 1648 TD/TT: Electrical & Instrumentation Supervisor: JUANITA Marisabel Michel MD IMG US PROCEDURES Final Result documented in this encounter Visit Diagnoses Diagnosis Sinusitis, unspecified chronicity, unspecified location- Primary documented in this encounter Additional Health Concerns Assessment Noted Time PHQ-9 Depression Total Score: 0 03/29/20 24 3:23 PM EDT documented as of this encounter Care Teams Cooling Tower Operator Relationship Specialty Start Date End Date Marisabel Michel MD [address] [place] [address] PCP - General Family Medicine 09/04/11 documented as of this encounter
--- OUTSIDE RECORDS SUMMARY | 2025-04-11 12:45 | XMS_ITS | Encounter Summary ---
Author Organization [employer] Address 75 [facility] 7t [place] [address] Care Team Providers Care Business Continuity Consultant Name Role Phone Marisabel Michel MD Primary Care Provider [phone] Encounter Details Date Type Department Care Team ([facility] st Contact Info) Description 09/08/2024 Orders Only [facility] MEDICINE 230 [place], [place] [phone] Marisabel Michel MD 230 [place] [address] Social History Tobacco Use Types Packs/Day Years [...] 1:45 PM EDT Office Visit [facility] MEDICINE [address] [place] [address] Marisabel Michel MD [address] [place] [address] documented as of this encounter Visit Diagnoses Not on filedocumented in this encounter Additional Health Concerns Assessment Noted Time PHQ-9 Depression Total Score: 0 03/29/20 24 3:23 PM EDT documented as of this encounter Care Teams Business Continuity Consultant Relationship Specialty Start Date End Date Marisabel Michel MD [address] [place] [address] [phone] PCP - General Family Medicine 09/04/11 documented as of this encounter
--- OUTSIDE RECORDS SUMMARY | 2025-04-11 12:46 | XMS_ITS ---
Author Organization [facility] Address [address] [place] [address] Care Team Providers Care Integration Specialist Name Role Phone Marisabel Michel Primary Care Provider UnavailYoni Deng Unavailable [phone] Halle Bustillo Unavailable [phone] Encounters En[facility] [address] 03/24/2025 Halle Bustillo Plan Of Treatment Next Appt Details Provider Name:Yoni Bhatt , 05/08/2025 01:30:00 PM, [address] [place] [address], [place], [address], Progress Notes * Radha JACKDOB: 1 (54 yo F)Acc No.[id number]:03/24/2025 Progress Note Patient:?GUEROGibsonRadha Provider:?Halle Bustillo DPM :1970???Age:54 Y???Sex:Female D ate:03/24/2025 Address:[address] [place] [address] Pcp:Marisabel Michel Subjective: * Chief Complaints: * [...] DPM Date:?0 03/24/2025 Generated for Deny lou/Klaudia/David on:?04/11/2025 12:45 PM EDT
--- OUTSIDE RECORDS SUMMARY | 2025-04-11 12:46 | XMS_ITS | Encounter Summary ---
Author Organization [employer] Address [address] [facility] [address] 7t [place] [address] Care Team Providers Care Linotype Operator Name Role Phone Marisabel Michel MD Primary Care Provider [phone] Encounter Details Date Type Department Care Team ([facility] st Contact Info) Description 10/01/2023 Orders Only [facility] MEDICINE 230 [place], [place] [phone] Marisabel Michel MD 230 [place], [place] [phone] Social History Tobacco Use Types Packs/Day Years [...] Description 06/05/2025 1:45 PM EDT Office Visit [facility] MEDICINE 230 [place] [address] Marisabel Michel MD 230 [place] [address] documented as of this encounter Visit Diagnoses Not on filedocumented in this encounter Additional Health Concerns Assessment Noted Time PHQ-9 Depression Total Score: 2 02/25/20 23 1:12 PM EDT documented as of this encounter Care Teams Linotype Operator Relationship Specialty Start Date End Date Marisabel Michel MD 230 [place] [address] PCP - General Family Medicine 09/04/11 documented as of this encounter
--- OUTSIDE RECORDS SUMMARY | 2025-04-11 12:46 | XMS_ITS | Encounter Summary ---
Author Organization [employer] Address [address] [place] [address] [place], [place] [address] Care Team Providers Care Assistant Grocery Name Role Phone Marisabel Michel MD Primary Care Provider [phone] Reason for Referral * Consultation (Routine) - Closed Specialty Diagnoses / Procedures Referred By Contac t Referred To Contact Physical Therapy Diagnoses Cerebral palsy, unspecified type (CMS/HCC) Wheelchair dependence Marisabel Michel MD [address] [place] [address] Phone: tel: fax: Referral ID Status Reason Start Date Expiration Date V isits Requested Visits Authorized [id number] Closed Specialty Services Required 11/25/2024 11/25/2025 1 1 * Consultation (Routine) - Closed Specialty Diagnoses / Procedures Referred By Vee carter Referred To Contact Occupational Therapy Diagnoses Cerebral palsy, unspecified type (CMS/HCC) Wheelchair dependence Marisabel Michel MD 230 [place] [address] Phone: tel: fax: Referral ID Status Reason Start Date Expiration Date V isits Requested Visits Authorized [id number] Closed Specialty Services Required 11/25/2024 11/25/2025 1 1 Encounter Details Date Type Department Care Team (Late st Contact Info) Description 11/25/2024 Orders Only [facility] MEDICINE [address] [place] [address] Marisabel Michel MD [address] [place] [address] Cerebral palsy, unspecified type (CMS/HCC) (Primary Dx); [...] Office Visit [facility] MEDICINE 230 [place] [address] Marisabel Michel MD [address] [place] [address] Scheduled Referrals Name Type Priority Associated Diagnoses [...] documented as of this encounter Care Teams Assistant Grocery Relationship Specialty Start Date End Date Marisabel Michel MD [address] [place] [address] PCP - General Family Medicine 09/04/11 documented as of this encounter
--- OUTSIDE RECORDS SUMMARY | 2025-04-11 12:46 | XMS_ITS | Encounter Summary ---
Author Organization [employer] Address [address] [place] [address] 7t [place] [address] Care Team Providers Care Intertype Operator Name Role Phone Marisabel Michel MD Primary Care Provider [phone] Encounter Details Date Type Department Care Team (Late st Contact Info) Description 06/30/2023 Abstract [facility] MEDICINE [address] [place] [address] [phone] Marisabel Michel MD [address] [place] [address] [phone] Social History Tobacco Use Types Packs/Day Years [...] Office Visit [facility] MEDICINE [address] [place] [address] [phone] Marisabel Michel MD [address] [place] [address] [phone] documented as of this encounter Procedures Procedure [...] documented as of this encounter Care Teams Intertype Operator Relationship Specialty Start Date End Date Marisabel Michel MD 230 [place] [address] PCP - General Family Medicine 09/04/11 documented as of this encounter
--- OUTSIDE RECORDS SUMMARY | 2025-04-11 12:46 | XMS_ITS | Encounter Summary ---
Author Organization [employer] Address [address] [facility] 7t [place] [address] Care Team Providers Care Plate Embosser Name Role Phone Marisabel Michel MD Primary Care Provider [phone] Reason for Visit * Reason Onset Date Comments Med Refill 09/15/2023 Encounter Details Date Type Department Care Team ([facility] st Contact Info) Description 09/15/2023 Telephone [facility] [address] [place], [place] [phone] Marisabel Michel MD [address] [place], [place] [phone] Med Refill Social History Tobacco Use Types [...] t he electric, gas, oil or water [employer] threatened to shut off services in your [...] EDT Office Visit [facility] [address] [place] [phone] Marisabel Michel MD [address] [place] [address] documented as of this encounter Visit Diagnoses Not on filedocumented in this encounter Additional Health Concerns Assessment Noted Time PHQ-9 Depression Total Score: 2 02/25/20 1:12 PM EDT documented as of this encounter Care Teams Plate Embosser Relationship Specialty Start Date End Date Marisabel Michel MD [address] [place] [phone] PCP - General Family Medicine 09/04/11 documented as of this encounter
--- OUTSIDE RECORDS SUMMARY | 2025-04-11 12:46 | XMS_ITS | Encounter Summary ---
Author Organization [employer] Address [address] [facility] 7t [place] [address] Care Team Providers Care Dumper Operator Name Role Phone Marisabel Michel MD Primary Care Provider [phone] Reason for Visit * Reason Comments Med Refill Encounter Details Date Type Department Care Team ([facility] st Contact Info) Description 12/11/2024 Refill [facility] MEDICINE [address] [place], [place] [phone] Marisabel Michel MD [address] [place], [place] [phone] Social History Tobacco Use Types Packs/Day Years [...] Description 06/05/2025 1:45 PM EDT Office Visit [facility] MED[facility]INE [address] [place] [address] Marisabel Michel MD [address] [place] [address] documented as of this encounter Visit Diagnoses Not on filedocumented in this encounter Additional Health Concerns Assessment Noted Time PHQ-9 Depression Total Score: 0 03/29/20 24 3:23 PM EDT documented as of this encounter Care Teams Dumper Operator Relationship Specialty Start Date End Date Marisabel Michel MD [address] [place] [phone] PCP - General Family Medicine 09/04/11 documented as of this encounter
--- OUTSIDE RECORDS SUMMARY | 2025-04-11 12:46 | XMS_ITS | Encounter Summary ---
Author Organization [employer] Address [address] [facility] 7t [place] [address] Care Team Providers Care Dough Molder Hand Name Role Phone Marisabel Michel MD Primary Care Provider [phone] Reason for Visit * Reason Onset Date Comments Appointment Request 01/23/2023 Encounter Details Date Type Department Care Team (Late Contact Info) Description 01/23/2023 Telephone [facility] MEDICINE [address] [place] [address] [phone] Marisabel Michel MD [address] [place] [phone] Appointment Request Social History Tobacco Use Types [...] encounter Miscellaneous Notes * Telephone Encounter - Maguiconcetta Ghassan Moran - 01/23/2023 3:57 PM EST Tc from pt returning phone regarding to a follow up appt with pcp. Please contact pt at [phone] documented in this encounter Plan of Treatment Upcoming Encounters Date Type Department Care Team (Late Contact Info) Description 06/05/2025 1:45 PM EDT Office Visit [facility] MED[facility]INE [address] [place] [address] Marisabel Michel MD [address] [place], [place] [phone] documented as of this encounter Visit Diagnoses Not on filedocumented in this encounter Care Teams Dough Molder Hand Relationship Specialty Start Date End Date Marisabel Michel MD [address] [place], [place] [phone] PCP - General Family Medicine 09/04/11 documented as of this encounter
--- OUTSIDE RECORDS SUMMARY | 2025-04-11 12:46 | XMS_ITS | Patient Health Record ---
Author [facility] Address [address] [place] [address] Care Team Providers Care Dance Historian Name Role Phone Marisabel Michel Primary Care Provider Yoni Glover Unavailable [phone] Gilbert Matson Unavailable [phone] Halle Bustillo Unavailable [phone] Allergies Allergen (clinical drug ingredient) Drug/Non Drug [...] application Externally Twice a day Active Ipratropium [place] Active Prednisone Not-Takin g Systane Active Jock [...] Orally for 30 day(s) Active Saline Nasal [place] as needed A ctive Meclizine HCl 12.5 [...] Problem Acquired hammer toe of right foot (245954613580 9105) Other hammer toe(s) (acquired), right foot (M20.41) Active confirmed Problem Type 2 diabetes mellitus with peripheral angiopathy (208761299) Type 2 diabetes mellitus with diabetic peripheral angiopathy without gangrene (E11.51) Active confirmed Q7(A), Q8(2B), Q9(1B,2C) Problem Acquired hammer toe of left foot (980479876898 9103) Other hammer toe(s) (acquired), left foot (M20.42) Active confirmed Problem Ulcer of toe of left foot (disorder) (638438134760 34641) Skin ulcer of toe of left foot, limited to breakdown of skin (L97.521) Active confirmed Response to treatment Nonapplicable Vital Signs Blood pressure diastolic 76 mm Hg 01/30/2025 Height 5ft in 01/30/2025 Blood pressure systolic 127 mm Hg 01/30/2025 Weight 178 lbs 01/30/2025 BMI 34.76 kg/m2 01/30/2025 Procedures Procedure Date Ordered Date Performed Result Body Sit e 33930- Debride <25 sq cm 05/03/2024 N/A 44547-ANCKFSR NAIL, 6 OR MORE 10/07/2024 N/A 36612-LMKI SKIN LESIONS, 2 TO 4 10/07/2024 N/A 16861-PPJOKAQ NAIL, 6 OR MORE 01/30/2025 N/A 64811- Debride <25 sq cm 01/30/2025 N/A 08006-IYLI SKIN LESIONS, 2 TO 4 01/30/2025 N/A Encounters Encounter Location Date Provider Diagnosis [facility] [address] [address] 05/03/2024 Gilbert Matson Tinea unguium B35.1 ; Pain in right toe(s) M79.674 ; Pain in left toe(s) M79.675 ; Skin disease L98.9 ; Type 2 diabetes mellitus with diabetic polyneuropathy E11.42 ; Ingrowing nail L60.0 ; Non-pressure chronic ulcer of other part of right foot limited to breakdown of skin L97.511 and Plantar fascial fibromatosis M72.[address] [address] 05/10/2024 Gilbert Matson Tinea unguium B35.1 ; Pain in right toe(s) M79.674 ; Pain in left toe(s) M79.675 ; Skin disease L98.9 ; Type 2 diabetes mellitus with diabetic polyneuropathy E11.42 ; Ingrowing nail L60.0 and Non-pressure chronic ulcer of other part of right foot limited to breakdown of skin L97.[address] [address] 07/29/2024 Gilbert Matson Tinea unguium B35.1 ; Pain in right toe(s) M79.674 ; Pain in left toe(s) M79.675 ; Skin disease L98.9 ; Type 2 diabetes mellitus with diabetic polyneuropathy E11.42 ; Ingrowing nail L60.0 and Cellulitis of right lower extremity L03.[address] 08/26/2024 Gilbert Matson Tinea unguium B35.1 ; Pain in right toe(s) M79.674 ; Pain in left toe(s) M79.675 ; Skin disease L98.9 ; Type 2 diabetes mellitus with diabetic polyneuropathy E11.42 and Cellulitis of toe of left foot L03.[address] 10/07/2024 Halle Bustillo Type 2 diabetes mellitus with diabetic polyneuropathy E11.42 and Tinea unguium B35.[address] [address] 01/30/2025 Yoni Bhatt Type 2 diabetes mellitus with diabetic peripheral angiopathy without gangrene E11.51 ; Tinea unguium B35.1 ; Pain in right toe(s) M79.674 ; Pain in left toe(s) M79.675 ; Other hammer toe(s) (acquired), left foot M20.42 ; Other hammer toe(s) (acquired), right foot M20.41 and Skin ulcer of toe of left foot, limited to breakdown of skin L97.521 [facility] [place] [address] [address] [address] 07/22/2024 Gilbert Matson Assessments Encounter Date Diagnosis [...] Treatment Pending Test Test Name Order Date 95577-YSJMSRW NAIL, 6 OR MORE 06/02/2017 12620-VPXBFRU NAIL, 6 OR MORE 09/01/2017 02772-VCUDKFE NAIL, 6 OR MORE 12/22/2017 67472-YJKGILK NAIL, 6 OR MORE 03/23/2018 41600-QSQRBUL NAIL, 6 OR MORE 06/01/2018 68622-BIXLAQI NAIL, 6 OR MORE 10/29/2018 40301-ORWOEJZ NAIL, 6 OR MORE 08/06/2018 90711-OJPBKHC NAIL, 6 OR MORE 10/07/2024 07474-SRMDVYH NAIL, 6 OR MORE 01/30/2025 37386-Fvqgzcnc Plate 08/06/2018 42645-Ajkhifeb Plate 12/22/2017 35110- Debride <25 sq cm 06/22/2018 56861- Debride <25 sq cm 01/30/2025 38956- Debride <25 sq cm 05/03/2024 52864-OOQHFGE SKIN/TISSUE 02/04/2022 41013-SVRXDFV SKIN/TISSUE 05/12/2022 04341 I&D ABSCESS- SIMPLE,SINGLE 019 99855 I&D ABSCESS- SIMPLE,SINGLE 020 84891- I&D ABSCESS-COMPLICATED,MULTI 08/2018 07549- I&D ABSCESS-COMPLICATED,MULTI 00935-MHHY SKIN LESIONS, 2 TO 4 06/01/20 18 82292-CNRD SKIN LESIONS, 2 TO 4 08/06/20 18 48678-MCND SKIN LESIONS, 2 TO 4 06/02/20 17 09514-XTTW SKIN LESIONS, 2 TO 4 03/23/20 18 24998-TPRC SKIN LESIONS, 2 TO 4 12/22/19 18 57816-KOUS SKIN LESIONS, 2 TO 4 09/01/20 17 57648-VNQP SKIN LESIONS, 2 TO 4 10/26/20 20 87816-QDMR SKIN LESIONS, 2 TO 4 01/30/20 21 36188-QUKG SKIN LESIONS, 2 TO 4 04/30/20 21 75428-FKGL SKIN LESIONS, 2 TO 4 07/30/20 21 12194-ZPAR SKIN LESIONS, 2 TO 4 10/25/20 21 23542-JRMP SKIN LESIONS, 2 TO 4 12/27/19 22 16616-ABED SKIN LESIONS, 2 TO 4 02/05/20 22 03781-NQPW SKIN LESIONS, 2 TO 4 01/24/20 20 92767-GIUF SKIN LESIONS, 2 TO 4 04/24/20 20 59241-QTGS SKIN LESIONS, 2 TO 4 07/24/20 20 12201-SMSE SKIN LESIONS, 2 TO 4 02/09/20 19 96792-KXSF SKIN LESIONS, 2 TO 4 05/10/20 19 85941-OCVW SKIN LESIONS, 2 TO 4 07/26/20 19 08078-VKSX SKIN LESIONS, 2 TO 4 11/08/20 19 33236-NKZO SKIN LESIONS, 2 TO 4 07/01/20 22 33435-NDGW SKIN LESIONS, 2 TO 4 10/29/20 18 37543-ACKU SKIN LESIONS, 2 TO 4 01/31/20 25 26329-UQBX SKIN LESIONS, 2 TO 4 10/07/20 24 Next Appt Details Provider Name:Yoni Bhatt , 05/08/2025 01:30:00 PM, [address] [facility] [address], [place], [address], Insurance Providers Payer Name Payer Address Payer Phone Subscriber Number Group Number Insured Name Patient Relationship to Insured Coverage Start Date Coverage End Date [facility] [employer] Claims [address] [place] [id number] Radha Vera Self - patient is the insured 7 Medical (General) History Medical History History ICD Code Arthritis asthma Cerebral palsy Chicken pox Epilepsy Knee Pain Kidney stones Migraines Paralysis Poor circulation Reflux Surgical History Surgery Date(Month/Year) appendectomy 2009 hand/wrist 1983 leg surgery 1981 [place] History Reason Date(Month/Year[place] [facility] [place] Care- Pain in ankle- negetive ult rasound and x-ray 04/2019 ER in [place] 02/2018
--- OUTSIDE RECORDS SUMMARY | 2025-04-11 12:46 | XMS_ITS | Encounter Summary ---
Author Organization [employer] Address [address] 7t [place] [address] Care Team Providers Care Form Builder Helper Name Role Phone Marisabel Michel MD Primary Care Provider [phone] Encounter Details Date Type Department Care Team (Latest Contact Info) Description 04/08/2025 Results Follow-Up [facility] MEDICINE [address] [place] [address] Marisabel Michel MD [address] [place] [address] Lipid Panel with Reflex to Direct LDL, Hemoglobin A1c, Comprehensive Metabolic Panel Social History Tobacco Use Types Packs/Day Years [...] Office Visit [facility] MEDICINE [address] [place] [address] Marisabel Michel MD [address] [place] [address] documented as of this encounter Visit Diagnoses Not on filedocumented in this encounter Additional Health Concerns Assessment Noted Time PHQ-9 Depression Total Score: 0 03/29/20 24 3:23 PM EDT documented as of this encounter Care Teams Form Builder Helper Relationship Specialty Start Date End Date Marisabel Michel MD [address] [place] [phone] PCP - General Family Medicine 09/04/11 documented as of this encounter
== END 2025-04-11 12:25 | disposition home or self-care (01) ==
LOC: HO.HUSH 11:31
PROVIDERS: PCP Family Medicine; Visit Provider Urology
DX: N20.0 Calculus of kidney (principal)
CPT/HCPCS: 99214; G2211

== ENCOUNTER → 2025-04-11 11:30 | Outpatient (BNVA) | payer OTHER, SELFPAY | PROVIDERS: PCP Family Medicine; Visit Provider Urology | DX: N20.0 Calculus of kidney (principal) | CPT/HCPCS: 99212 ==

== ENCOUNTER 2025-05-18 08:27 | Outpatient (REF) | payer OTHER, SELFPAY ==
--- NOTE | ~2025-05-18 | XR_ITS ---
EXAMINATION: XR SHOULDER, RIGHT CLINICAL INFORMATION: M25.511 - Pain in right shoulder COMPARISON: None available. TECHNIQUE: Two views of the right shoulder. FINDINGS: Normal bone mineralization. No fracture, dislocation, or suspicious bone lesion. Normal alignment. The glenohumeral joint is grossly normal given suboptimal AP projection. The joint space is not well imaged. The AC joint demonstrates minimal spurring, predominantly superior surface. There is a type II acromion. No undersurface spurring. There is loss of the subacromial space, with mild superior subluxation of the humeral head upon the glenoid, suggesting rotator cuff tear. Remainder of the soft tissue and bony structures appear normal. XR/XR shoulder RT min 2V IMPRESSION: 1. No acute fracture or dislocation. 2. Loss of the subacromial space suggesting rotator cuff tearing. Electronically signed by: Bayron Aviles MD 05/18/2025 09:17 AM EDT
== END 2025-05-18 08:28 | disposition home or self-care (01) ==
LOC: HO.HOSX 08:27
PROVIDERS: PCP Family Medicine; Visit Provider Physical Medicine & Rehabilitation
DX: M25.511 Pain in right shoulder (principal); G89.29 Other chronic pain; G83.20 Monoplegia of upper limb affecting unspecified side; Z86.69 Personal history of other diseases of the nervous system and sense organs
CPT/HCPCS: 73030; 99202

== ENCOUNTER 2025-05-18 08:27 | Outpatient (AMB) | payer OTHER, SELFPAY ==
--- NOTE | 2025-05-18 08:28 | MHC.OFFVIS ---
Vital Signs 05/18/25 08:28 Height 5 ft 3 in Intake Visit Reasons: New Patient - Neck Pain, Discuss Botox Intake Note: Radha is a 54 year old female who presents today as a new patient for her right arm and upper trapezius pain/tightness. Patient was referred by BRIT Walton from [facility] to discuss Botox Injection 03/14/25. Patient also noted that she has decreased range of motion, especially in the RUE. Patient reports that she has had pain and pressure in the right shoulder down to the right hand for years now. No numbness or tingling to report. Patient states that her right hand is locking and catching in her fingers to where she has to physically straighten them.Patient then added that she had hand surgery over 20 years ago for the same issue in the same arm. Patient is wheelchair dependent. Allergies budesonide (From SYMBICORT) Allergy (Intermediate, Verified 05/18/25 08:33) TREMOR formoterol (From SYMBICORT) Allergy (Intermediate, Verified 05/18/25 08:33) TREMOR sulfamethoxazole (From BACTRIM) Allergy (Intermediate, Verified 05/18/25 08:33) RASH trimethoprim (From BACTRIM) Allergy (Intermediate, Verified 05/18/25 08:33) RASH Sulfa (Sulfonamide Antibiotics) Allergy (Unknown, Verified 05/18/25 08:33) Unknown Symbicort Allergy (Unknown, Uncoded 05/18/25 08:33) Unknown HPI Comments Details: Here with sister Ciarra. Patient able to give me history. Born with CP. WC level. Stands to transfer but poor balance, need transfer gait and a lot of assistance. Total assistance for dressing, shower, toileting. Independent with brushing and feeding with left hand. Sister prepares meals. Noted right arm stiffness for at least 5 years, probably more. She was always left handed. RUE was always weaker and almost non functional. Right wrist surgery for difficulty to control fingers. She can flex right elbow but cannot flex wrist, very slight finger flexion and extension voluntarily. Limited right shoulder ROM, unable to lift over head. Complains of right shoulder pain. This makes cleaning under arm and dressing very difficult. No medication or injection on RUE to treat. No recent PT or OT. [facility] Medical History Wheelchair dependence Edema of both lower extremities Hx of cerebral palsy GERD (gastroesophageal reflux disease) Asthma Alopecia Surgical History History of surgery Hx of appendectomy History of esophagogastroduodenoscopy (EGD) Hx of colonoscopy Hx of lithotripsy Social History Household Members: Family Housing: House Alcohol intake: never Patient Tobacco Use Status: Never used Tobacco service: No Current occupational status: disabled Review of Systems Const All systems reviewed & are unremarkable except as noted in HPI and below Physical Exam Right arm/shoulder is adducted with tightness felt on pectoralis muscle. There is tightness over right upper trapezius. Right elbow extends spontaneously, Nicanor 2-3. Right wrist tends to extend as well. Results Reviewed Results Reviewed: I reviewed records from the following: Neurology Assessment & Plan Assessment & Plan (1) Spastic monoplegia of upper extremity: Code(s): G83.20 - Monoplegia of upper limb affecting unspecified side Category: Medical (2) Hx of cerebral palsy: Code(s): Z86.69 - Personal history of other diseases of the nervous system and sense organs Category: Medical (3) Right shoulder pain: Code(s): M25.511 - Pain in right shoulder Category: Medical Qualifiers: Chronicity: chronic Qualified Code(s): M25.511 - Pain in right shoulder; G89.29 - Other chronic pain Plan Patient?s abnormal muscle tone in the setting of history of cerebral palsy is interfering with functional ability, and is expected to result in joint contracture without adequate intervention. Standard medical treatments such as surgical to wrist have failed. Further surgical intervention is considered to be the last option. Therefore chemodenervation using botulinum is deemed necessary to enhance function and allow additional therapeutic modalities to be employed. After a long discussion with the patient and sister, we have decided to go ahead and do botulinum toxin injection into right upper extremity. A total of 100 units of Botox is anticipated. The procedure will being scheduled after prior authorization. Muscles to be injected: 50 units triceps, 25 units pectoralis, 25 units trapezius, right side Also getting right shoulder x-ray today to rule out subluxation. Assessment and plan discussed with patient, and patient was agreeable. All questions were answered thoroughly. Botox injection most likely we will be 1st week of June, pending prior authorization and scheduling. Brittanie Sullivan MD, MANJIT Board Certified, [place] [employer] and Rehabilitation (ABPMR) Board Certified, [place] Board of Electrodiagnostic Medicine (ABEM) Orders: Orders XR shoulder RT min 2V Today M25.511 - Pain in right shoulder Coding Level of Care Code New Pt Level 4 (33885) Complex EM visit Add On G2211 Diagnoses Spastic monoplegia of upper extremity G83.20 Hx of cerebral palsy Z86.69 Chronic right shoulder pain M25.511; G89.29 Chronicity: chronic
--- OUTSIDE RECORDS SUMMARY | 2025-05-18 08:47 | XMS_ITS | Encounter Summary ---
Author Organization [employer] Address [address] [facility] [address] [place] [address] Care Team Providers Care Lagging Machine Operator Name Role Phone Marisabel Michel MD Primary Care Provider [phone] Encounter Details Date Type Department Care Team ([facility] st Contact Info) Description 06/30/2024 Orders Only [facility] [address] [place], [place] [phone] Marisabel Michel MD [address] [place] [address] Prediabetes (Primary Dx); Primary hypertension; Acute right [...] Office Visit [facility] [address] [place], [place] [phone] Marisabel Michel MD [address] [place], [place] [phone] documented as of this encounter Procedures Procedure [...] PM EDT) Hemoglobin A1c 6.1(H) <6.0 % [facility] Comment:Hemoglobin A1C Refer ence Range Adults: 4.8 - 6.0 % Non diabetic: < 6.0 % Goal: < 7.0 %Additional Action Suggested: > 8.0 %Note: Hemoglobin A1c results are invalid for patients with abnormal amounts of HbF. Blood transfusions may impact the HbA1c concentration in the patient sample. Estimated Average Glucose 128 mg/dL [facility] Comment:eAG = Estimated ave rage glucose which is %A1C expressed asaverage glucose, using the formula of the [id number] Glucose study (ADAG), Diabetes Care, Vol.31,#8,Jun. 2007 Blood Venous blood specimen / Unknown 08/02/2024 5:05 PM EDT 08/02/2024 5:10 PM EDT us Marisabel Michel MD LAB BLOOD ORDERABLES Final Resul t Performing Organization Address City/[facility]/ZIP Co de Phone Number [facility] [address] [place] [phone] * (ABNORMAL) TSH with Reflex to Free T4 (07/15/2024 3:24 PM EDT) TSH reflex Free T4 0.19(L) 0.32 - 4.0 uIU/mL [facility] Blood 07/15/2024 3:24 PM EDT 07/15/2024 3:26 PM EDT Marisabel Michel MD LAB BLOOD ORDERABLES Final Resul t Performing Organization Address City/[facility]/ZIP Co de Phone Number [facility] [address] [place] [phone] * (ABNORMAL) Sed Rate by Modified Westergren (07/15/2024 3:24 PM EDT) Erythrocyte Sedimentation Rate 71(H) 0 - 20 MM/HR [facility] Comment:Patients with polycy themia and many hemoglobin abnormalitiesmay have depressed sed rates whereas patients with anemiamay have elevated sed rates. Blood Venous blood specimen / Unknown 07/15/2024 3:24 PM EDT 07/15/2024 3:26 PM EDT Marisabel Michel MD LAB BLOOD ORDERABLES Final Resul t Performing Organization Address [facility] Co de Phone Number [facility] [address] [place] [phone] * (ABNORMAL) C-reactive Protein (07/15/2024 3:24 PM EDT) C Reactive Protein 18.68(H) < or = 0.50 mg/dL [facility] Blood Venous blood specimen / Unknown 07/15/2024 3:24 PM EDT 07/15/2024 3:26 PM EDT Marisabel Michel MD LAB BLOOD ORDERABLES Final Resul t Performing Organization Address [facility] Co de Phone Number [facility] [address] [place] [phone] * Uric acid (07/15/2024 3:24 PM EDT) Uric Acid 4.8 2.4 - 5.7 mg/dL [facility] Blood Venous blood specimen / Unknown 07/15/2024 3:24 PM EDT 07/15/2024 3:26 PM EDT Marisabel Michel MD LAB BLOOD ORDERABLES Final Resul t Performing Organization Address [facility] Co de Phone Number [facility] [address] [place] [phone] * (ABNORMAL) Comprehensive Metabolic Panel (07/15/2024 3:24 PM EDT) Pathologist [facility] Sodium 141 135 - 145 mmol/L [facility] Potassium 3.5 3.3 - 5.1 mmol/L [facility] Chloride 105 96 - 108 mmol/L [facility] Carbon Dioxide 20(L) 22 - 29 mmol/L [facility] Anion Gap 20 12 - 20 [facility] Urea Nitrogen (BUN) 13 9 - 16 mg/dL [facility] Creatinine, Serum 0.81 0.5 - 1.4 mg/dL [facility] Estimated Glomerular Filt Rate >60 [facility] Comment:NOTE: For -Am erican individuals, multiply the result by 1.210.Chronic Kidney Disease: Estimated GFR < 60 mL/min/1.61h5Bmqhdz Kidney Disease: Estimated GFR < 15 mL/min/1.73m2 Glucose 91 60 - 115 mg/dL [facility] Calcium 10.5(H) 8.4 - 10.2 mg/dL [facility] Bilirubin, Total 0.4 0.0 - 1.0 mg/dL [facility] Aspartate Amino Transferase 17 5 - 31 U/L [facility] Alanine Aminotransferase 18 0 - 31 U/L [facility] Total Protein 8.5(H) 6.5 - 8.0 g/dL [facility] Albumin Level 4.3 3.5 - 5.0 g/dL [facility] Alkaline Phosphatase 87 39 - 117 U/L [facility] Blood Venous blood specimen / Unknown 07/15/2024 3:24 PM EDT 07/15/2024 3:26 PM EDT us Marisabel Michel MD LAB BLOOD ORDERABLES Final Resul t [facility] [address] [place] [phone] * (ABNORMAL) CBC auto differential (07/15/2024 3:24 PM EDT) White Blood Count 8.9 4.8 - 10.8 X10*3/uL [facility] Red Blood Count 4.49 4.20 - 5.50 X10*6/uL [facility] Hemoglobin 12.9 12.0 - 16.0 g/dl [facility] Hematocrit 39.1 37.0 - 47.0 % [facility] Mean Corpuscular Volume 87.1 80.0 - 98.0 fL [facility] Mean Corpuscular Hemoglobin 28.7 27.0 - 33.0 pg [facility] Mean Corpuscular HGB Conc 33.0 31.0 - 35.0 g/dl [facility] Red Cell Distribution Width 13.7 11.0 - 16.0 % [facility] Platelet Count 223 160 - 400 X10*3/uL [facility] Mean Platelet Volume 13.1(H) 9.4 - 12.3 fL [facility] Neutrophils Percent Auto 68.4 45 - 73 % [facility] Imm Gran Pct Auto 0.6(H) 0.0 - 0.4 % [facility] Lymphocytes Percent Auto 17.3(L) 20 - 40 % [facility] Monocytes Percent Auto 10.3 2 - 11 % [facility] Eosinophils Percent Auto 3.1 0 - 4 % [facility] Basophils Percent Auto 0.3 0 - 2 % [facility] NRBC Pct Auto 0.0 0.0 - 0.2 /100WBC [facility] Neutrophils Absolute Auto 6.1 2.0 - 8.3 x10*3/uL [facility] Imm Gran Abs Auto 0.05(H) 0.00 - 0.03 X10*3/uL [facility] Lymphocytes Absolute Auto 1.6 1.2 - 4.9 X10*3/uL [facility] Monocytes Absolute Auto 0.9 0.1 - 1.2 X10*3/uL [facility] Eosinophils Absolute Auto 0.3 0.0 - 0.4 X10*3/uL [facility] Basophils Absolute Auto 0.0 0.0 - 0.2 X10*3/uL [facility] NRBC Abs Auto 0.000 0.0 - 0.012 X10*3/uL [facility] Blood Venous blood specimen / Unknown 07/15/2024 3:24 PM EDT 07/15/2024 3:26 PM EDT Marisabel Michel MD LAB BLOOD ORDERABLES Edited Resu lt - Final [facility] [address] [place] [phone] * VASC US Lower Extremity Venous Duplex Bilateral (07/15/2024 2:00 PM EDT) 07/15/2024 2:00 PM EDT Narrative [facility] - 07/15/2024 2:49 PM EDT [address] [address] Ultrasound Report Signed Patient: Radha Kimball MR#: [id number] : 1970 Acct:[id number] Age/Sex: 53 / F ADM Date: 07/15/24 Loc: .US Attending Dr: Sebastian Matta MD Ordering Physician: Sebastian Matta MD Date of Service: 07/15/24 Procedure(s): US venous duplex LE BI Accession Number(s): [id number] cc: Sebastian Matta MD; Marisabel Michel MD [...] 07/15/24 1445 DD/ 1400 TD/TT: 07/15/24 1420 Transportation Services Representative: Procedure Note Donotuseinterpreter, Image - 07/15/[address] [address] Ultrasound Report Signed Patient: Radha Kimball#: [id number] : 1970Acct:[id number] Age/Sex: 53 / FADM Date: 07/15/24 Loc: HO.US Attending Dr: Sebastian Matta MD Ordering Physician: Sebastian Matta MD Date of Service: 07/15/24 Procedure(s): US venous duplex LE BI Accession Number(s): [id number] cc: Sebastian Matta MD; Marisabel Michel MD [...] 07/15/24 1445 DD/ 1400 TD/TT: 07/15/24 1420 Transportation Services Representative: [facility] External Provider CV VASC ULAR PROCEDURES Final Result [facility] [address] [place] [phone] documented in this encounter Visit Diagnoses Diagnosis Prediabetes- Primary Other abnormal glucose Primary hypertension Unspecified essential hypertension Acute right ankle pain Fever, unspecified fever cause documented in this encounter Additional Health Concerns Assessment Noted Time PHQ-9 Depression Total Score: 0 03/29/20 24 3:23 PM EDT documented as of this encounter Care Teams Lagging Machine Operator Relationship Specialty Start Date End Date Marisabel Michel MD [address] [place] [phone] PCP - General Family Medicine 09/04/11 documented as of this encounter
== END 2025-05-18 09:33 | disposition home or self-care (01) ==
PROVIDERS: PCP Family Medicine; Visit Provider Physical Medicine & Rehabilitation
DX: G83.20 Monoplegia of upper limb affecting unspecified side (principal); Z86.69 Personal history of other diseases of the nervous system and sense organs; M25.511 Pain in right shoulder; G89.29 Other chronic pain
CPT/HCPCS: 99204; G2211

== ENCOUNTER → 2025-05-18 08:44 | Outpatient (BNV) | payer OTHER, SELFPAY | PROVIDERS: PCP Family Medicine; Visit Provider Radiology Diagnostic Radiology | DX: M25.511 Pain in right shoulder (principal) | CPT/HCPCS: 73030 ==

== ENCOUNTER 2025-06-08 14:57 | Outpatient (AMB) | payer OTHER, SELFPAY ==
--- OUTSIDE RECORDS SUMMARY | 2025-03-03 05:30 | XMS_ITS ---
Author Organization [facility] Address [address] [place] [address] Care Team Providers Care Technician Plant And Maintenance Name Role Phone Marisabel Michel Primary Care Provider UnavailYoni Deng Unavailable [phone] Halle Bustillo Unavailable [phone] REASON FOR VISIT Seen Sooner Encounters Encounter Location Date [facility] [address] 03/03/2025 Halle Bustillo Plan Of Treatment Next Appt Details Provider Name:Yoni Bhatt , 08/02/2025 03:15:00 PM, [address] [place] [address], [phone], Provider Name:Yoni Bhatt , 11/01/2025 03:15:00 PM, [address] [place] [address], [phone], Progress Notes * Radha JACKDOB: [birth year] (54 yo F)Acc No.[id number]:03/03/2025 Progress Note Patient: Radha DIOP Provider: Sherwin Bustillo DPM :1970 A ge:54 Y S ex:Female Date:03/03/2025 Address:[address] [place] [address] Pcp:Marisabel Michel Subjective: * Chief Complaints: * [...] DPM Date: 0 03/03/2025 Generated for Deny lou/Klaudia/David on: 0 06/08/2025 03:41 PM EDT
--- OUTSIDE RECORDS SUMMARY | 2025-06-05 13:45 | XMS_ITS | Encounter Summary ---
Author Organization [employer] Address [address] [place] [address] Care Team Providers Care Yarding And Folding Machine Operator Name Role Phone Marisabel Michel MD Primary Care Provider [phone] Encounter Details Date Type Department Care Team ([facility] st Contact Info) Description 06/05/2025 1:45 PM EDT Office Visit [facility] [address] [place], [place] [phone] Marisabel Michel MD [address] [place], [place] [phone] Primary hypertension (Primary Dx); Venous stasis dermatitis of both lower extremities; Peripheral venous insufficiency; Other osteoporosis with current pathological fracture, sequela; Prediabetes; Cerebral palsy, unspecified type (CMS/HCC); FARTUN (obstructive sleep apnea) Social History Tobacco Use Types Packs/Day Years Used Date Smoking Tobacco: Never Passive Smoke Exposure: Never Smokeless Tobacco: Never Alcohol Answer Date Recorded Frequency of Alcohol Consumption Not on file 09/19/2024 Average Number of Drinks Not on file 024 Frequency of Binge Drinking Not on file 08/24 Score 0 09/19/2024 Depression Answer Date Recorded Patient Health Questionnaire-9 Score 5 06/05/2025 Patient Health Questionnaire-9 Score 5 06/05/2025 Last PHQ-9: Questionnaire Data Not on file 0 06/05/2025 Housing Stability Answer Date Recorded What is your housing situation today? I have diane reinoso 06/05/[address] you li ve. Do you have problems with any of the following? None of the above 06/05/2025 Food Insecurity Answer Date Recorded Within the past 12 months, y ou worried that your food would run out before you got money to buy more: Never True 06/05/2025 Within the past 12 months,th e food you bought just didn't last and you didn't have enough money to get more: Never True Transportation Answer Date Recorded In the past 12 months, has l ack of transportation kept you from medical appts, meetings, work or from getting things needed for daily living? No 06/05/2025 Utilities Answer Date Recorded In the past 12 months, has t he electric, gas, oil or water company threatened to shut off services in your home? No 06/05/2025 Depression Answer Date Recorded Patient Health Questionnaire-2 Score 1 06/05/2025 Internet Access Answer Date Recorded Internet Access Q1 Yes 06/05/2025 Internet Access Q2 Not on file 06/05/2025 Comments Unknown Sex and Gender Information Value Date Recorded Sex Assigned at Female 09/22/2022 10:16 AM EDT Legal Sex Female 10:16 AM EDT Gender Identity Female 09/22/2022 10:16 AM EDT Sexual Orientation Straight 09/22/2022 10 :16 AM EDT documented as of this encounter Last Filed Vital Signs Vital Sign Reading Time Taken Comments Blood Pressure 140/88 06/05/2025 2:08 PM EDT Pulse 94 06/05/2025 2:08 PM EDT Temperature 36.5 C (97.7 F) 06/05/2025 2:08 PM EDT Respiratory Rate 20 06/05/2025 2:08 PM EDT Oxygen Saturation 97% 06/05/2025 2:0 8 PM EDT Inhaled Oxygen Concentration - - Weight 79.5 kg (175 lb 6 oz) 06/05/2025 2:08 PM EDT minus wheelchair wt Height 152.4 cm (5') 06/05/2025 2:08 PM EDT Body Mass Index 34.25 06/05/2025 2:08 PM EDT documented in this encounter Functional Status * Over the past 2 weeks, how often have you been bothered by any of the following problems? Question Answer Date of Assessment Author Patient Health Questionnaire -2 Score 1 06/05/2025 3:36 PM EDT Britta Davila MA * Little interest or pleasure in doing things Answer Date of Assessment Author Not at all 06/05/2025 3:36 PM EDT Vidya Davila MA * Feeling down, depressed, or hopeless Answer Date of Assessment Author Several days 06/05/2025 3:36 PM EDT Vidya Davila MA * Trouble falling or staying asleep, or sleeping too much Answer Date of Assessment Author Not at all 06/05/2025 3:36 PM EDT Vidya Davila MA * Feeling tired or having little energy Answer Date of Assessment Author Several days 06/05/2025 3:36 PM EDT Vidya Davila MA * Poor appetite or overeating Answer Date of Assessment Author More than half the days 06/05/2025 3:36 PM EDT Vidya Quiñones MA * Feeling bad about yourself - or that you are a failure or have let yourself or your family down Answer Date of Assessment Author Not at all 06/05/2025 3:36 PM EDT Vidya Davila MA * Trouble concentrating on things, such as reading the newspaper or watching television Answer Date of Assessment Author Not at all 06/05/2025 3:36 PM EDT Vidya Davila MA * Moving or speaking so slowly that other people could have noticed? Or the opposite - being so fidgety or restless that you have been moving around a lot more than usual. Answer Date of Assessment Author Several days 06/05/2025 3:36 PM DAPNHET Vidya Davila MA * Thoughts that you would be better off or hurting yourself in some way Answer Date of Assessment Author Not at all 06/05/2025 3:36 PM EDT Viyda Davila MA * Patient Health Questionnaire-9 Score Answer Date of Assessment Author 5 06/05/2025 3:36 PM EDT Vidya Davila MA * How difficult have these problems made it for you to do your work, take care of things at home, or get along with other people? Answer Date of Assessment Author Not difficult at all 06/05/2025 3:36 PM EDT Vidya Patel MA * Over the last 2 weeks, how often have you been bothered by any of the following problems? Question Answer Date of Assessment Author Feeling nervous, anxious, or on edge 0 06/05/2025 3:36 PM EDT Britta Davila MA Not being able to stop or control worrying 0 06/05/2025 3:36 PM EDT Britta Davila MA Worrying too much about different things 1 06/05/2025 3:36 PM EDT Britta Davila MA Trouble relaxing 0 06/05/2025 3:36 PM EDT Vidya Quiñones MA Being so restless that it is hard to sit still 0 06/05/2025 3:36 PM EDT Britta Davila MA Becoming easily annoyed or irritable 0 06/05/2025 3:36 PM EDT Britta Davila MA Feeling afraid as if somethi ng awful might happen 0 06/05/2025 3:36 PM EDT Britta Davila MA SERA-7 Total Score 1 06/05/2025 3:36 PM EDT Vidya Davila MA documented as of this encounter Miscellaneous Notes * Assessment & Plan Note - Angela Hamilton MA - 06/05/2025 12:51 PM EDT Associated Problem(s): FARTUN (obstructive sleep apnea) -home sleep study on 09/23/21 revealed moderate FARTUN and hypoxemia the lowest 72%. In-lab sleep studywas recommended -in-lab sleep study 02/09/23 Auto PAP 4-8 cm H2O was recommended. -continue following with sleep medicine clinic * Assessment & Plan Note - Angela Hamilton MA - 06/05/2025 12:51 PM EDT Associated Problem(s): Cerebral palsy (CMS/HCC) -Continue Baclofen prn. -completed home PT. -completed speech therapy. -Most recent swallowing evaluation in April 2015 was reassuring for no aspiration or airway problem. * Assessment & Plan Note - Angela Hamilton MA - 06/05/2025 12:50 PM EDT Associated Problem(s): Prediabetes - strong family history of DM (mother, father, sisters) - 12/07/23 A1C 6.1% - 07/01/23 A1C 6.4% -08/02/24 A1C 6.1% - Most Recent: A1c 6.3% on 04/07/25 - continue working on lifestyle modifications * Assessment & Plan Note - Angela Hamilton MA - 06/05/2025 12:50 PM EDT Associated Problem(s): Osteoporosis -09/16/21 DEXA The lowest T-score -2.6 in L femoral neck - 11/23/23 DEXA the lowest T-score -2.4 in L femoral neck -Risk factors: Minimal weight-bearing; early menopause; Family Hx -Started alendronate since Aug 2021; continue -Plan to continue alendronate for at least 5 years -Wt bearing exercise as tolerated -Fall precaution -Encourage adequate Ca and Vit D intake * Assessment & Plan Note - Angela Hamilton MA - 06/05/2025 12:50 PM EDT Associated Problem(s): Venous stasis dermatitis of both lower extremities -Followed by Interventional Radiology Rn. -Cont moisturization. -Leg elevation -Low sodium diet * Assessment & Plan Note - Angela Hamilton MA - 06/05/2025 12:49 PM EDT Associated Problem(s): Primary hypertension -Goal BP < 140/90 per JNC-8 and [...] she started taking furosemide regularly for edema. * Assessment & Plan Note - Angela Hamilton MA - 06/05/2025 12:49 PM EDT Associated Problem(s): Peripheral venous insufficiency - following with [facility], last seen in Nov 2023, recommended to use furosemide - Recommended leg elevation, compression stocking, adequate activity, and low- sodium diet - Reviewed judicious use of diuretics because she does not have CHF. - patient verbalized understanding that she will continue using furosemide judiciously. documented in this encounter Plan of Treatment Not on file documented as of this encounter Visit Diagnoses Diagnosis Primary hypertension- Primary Unspecified essential hypertension Venous stasis dermatitis of both lower extremities Peripheral venous insufficiency Unspecified venous (peripheral) insufficiency Other osteoporosis with current pathological fracture, sequela Prediabetes Other abnormal glucose Cerebral palsy, unspecified type ([facility]) FARTUN (obstructive sleep apnea) Obstructive sleep apnea (adult) (pediatric) documented in this encounter Additional Health Concerns Assessment Noted Time PHQ-9 Depression Total Score: 5 06/05/20 25 3:36 PM EDT documented as of this encounter Care Teams Yarding And Folding Machine Operator Relationship Specialty Start Date End Date Marisabel Michel MD [address] [place] [phone] PCP - General Family Medicine 09/04/11 documented as of this encounter
--- NOTE | 2025-06-08 15:06 | A.OFFVIS_ITS ---
Intake Visit Reasons: OV - right knee OA, last inj 05/18/24 Intake Note: Radha is a 54 year old female who presents today for a follow up of her right knee OA, last injection (80) 05/18/24. Patient reports her last injection gave her a couple of weeks of relief. She would like to repeat the injection and see if her pain gets better. Allergies budesonide (From SYMBICORT) Allergy (Intermediate, Verified 06/08/25 15:27) TREMOR formoterol (From SYMBICORT) Allergy (Intermediate, Verified 06/08/25 15:27) TREMOR sulfamethoxazole (From BACTRIM) Allergy (Intermediate, Verified 06/08/25 15:27) RASH trimethoprim (From BACTRIM) Allergy (Intermediate, Verified 06/08/25 15:27) RASH Sulfa (Sulfonamide Antibiotics) Allergy (Unknown, Verified 06/08/25 15:27) Unknown Symbicort Allergy (Unknown, Uncoded 05/18/25 08:33) Unknown HPI HPI OV - right knee OA, last inj 05/18/24: Details: Ms. Prem Amaro is a 54-year-old female with a past medical history significant for cerebral palsy and is wheelchair-bound. She presents to the office today for repeat cortisone injection into the right knee for osteoarthritis. She would like to repeat injection while the office today. [facility] Medical History Wheelchair dependence Edema of both lower extremities Hx of cerebral palsy GERD (gastroesophageal reflux disease) Asthma Alopecia Surgical History History of surgery Hx of appendectomy History of esophagogastroduodenoscopy (EGD) Hx of colonoscopy Hx of lithotripsy Social History Household Members: Family Housing: House Alcohol intake: never Patient Tobacco Use Status: Never used Tobacco service: No Current occupational status: disabled Review of Systems Const All systems reviewed & are unremarkable except as noted in HPI and below Physical Exam Const General: cooperative and no acute distress Resp Effort & Inspection: normal respiratory effort and able to speak in complete sentences Extrem Other: Rigth knee no ecchymosis or erythema. Mild joint effusion. No tenderness to palpation to the medial or lateral joint lines. ROM is 45 to 90 degrees. NVI. Office Procedures AMB Joint Injection/Aspiration Joint Injection/Aspiration Primary Site: right knee Prep: site was prepped using aseptic technique, ethochloride spray was applied and injection warnings given Injected: 80 mg of, DepoMedrol, with 8 mL of (2% plain lidocaine) and in the joint Approach Used: anterolateral Procedure: The patient tolerated the procedure well, but had some pain with the injection and there was some relief with the local anesthesia Coding - Large joint Procedure code (CPT) selection complete Assessment & Plan Assessment & Plan (1) Osteoarthritis of right knee: Code(s): M17.11 - Unilateral primary osteoarthritis, right knee Category: Medical Plan The patient was offered a cortisone injection in the right knee with 80 mg of DepoMedrol. The patient was explained the risks, benefits, and alternatives to receiving this injection. After receiving consent for the injection, the patient had the procedure done while in the office today. The patient tolerated the procedure well with no complications. Follow-up will be PRN, or sooner if needed Coding Level of Care Code Est Pt Level 3 (82164) Diagnoses Osteoarthritis of right knee M17.11 CPT Codes Coding - Large joint: 16976 - Large joint ([id number])
--- OUTSIDE RECORDS SUMMARY | 2025-06-08 15:41 | XMS_ITS | Patient Health Record ---
Author Organization [facility] Address [address] [place] [address] Care Team Providers Care Sand Miller Name Role Phone Anand DIOR, Marisabel Primary Care Provider George Hyman Unavailable [phone] Reason For Referral No Information Medications Medication [...] tablet Orally Once a day Active Nystatin 579152 UNIT/ML 4 ml Mouth/Throa t Twice a [...] W/U Status Risk Notes Problem Esophageal reflux (904344554) Esophageal reflux (K21.9) Active confirmed Problem 827303786 Encounter for screening for malignant neoplasm of colon (Z12.11) Active confirmed Problem 701804866 Gastroesophageal reflux disease, esophagitis presence not specified (K21.9) Active confirmed Problem 372013960 Family history o f colon cancer (Z80.0) Active confirmed Problem Benign neoplasm of stomach (21424393) Gastric polyps (K31.7) Active confirmed Problem 44260368 Oropharyngeal dysphagia (R13.12) Active confirmed Problem 407712916 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 Problem Diverticulosis of sigmoid colon (078464557) Diverticulosis of sigmoid colon (K57.30) Active confirmed [...] Insured Coverage Start Date Coverage End Date [facility] [address] [place] [address] [id number] CARL JACK Self - patient is the insured MEDICAID OF [place] [address] [place] [id number] CARL JACK Self - patient is the insured Medical (General) History Medical History History ICD Code Alopecia Positive H.pylori serology in 07/2013-Rx' d with PPI and antibiotics Asthma Denies ND,DM,CVA,renal disease Kidney stones-[facility] Neg colonoscopy in 2004, [...]
--- OUTSIDE RECORDS SUMMARY | 2025-06-08 15:42 | XMS_ITS | Data Portability ---
Author Organization [employer] [facility], [facility] Address [address] [place] [address] Care Team Providers Care Char Filter Operator Name Role Phone HIM CCA OTHER DENA KAN Primary Care Provider Assessment Encounter Date Assessment Date Assessment LastModified by Organization Details LastModified Time 06/26/2024 06/26/2024 As noted, we were called to see this patient regarding concerns of fever. Evaluation in the field was performed by my inspector wreath colleague, as noted above, I provided real-time [...] worsening flank pain, rigors, worsening abdominal pain [id number] Not available 06/26/2024 19:34:52 03/16/2025 03/16/2025 I provided real -time medical direction via phone for this encounter and was available for additional phone-based assistance as needed. I have reviewed and agree with the Assessment and Plan as documented by the Film Recordist. Patient given the opportunity to ask questions. Our service contacted for an assessment of: Hematuria and back pain radiating to the right flank. As per above, patient with approximately 24 hours of Abdominal and back pain radiating to the right flank. Denies dysuria, frequency. does have a history of UTIs. Denies fever, chills . Per inspector wreath on the scene, Vital signs are stable [...] assessment and plan as documented by the inspector wreath. I provided real-time medical direction for this [...] Ag, QL IA, respiratory specimen 2024 025 [facility], [address] [place] [address], [id number] 5 20:22:13 rapid flu (A+B) 2024 025 Critical access hospital, [address] [place] [address], [id number] 5 20:22:27 rapid strep group A, throat 2024 025 Critical access hospital, [address] [place] [address], [id number] 5 20:22:43 urinalysis, dipstick 2024 025 Critical access hospital, [address] [place] [address], [id number] 5 21:03:36 culture, urine 2024 025 ART[facility] (Centralized Electronic Ordering - All Locations), Patient Can Go To The Location Of Their Choice, [id number] 5 12:07:57 culture, urine 2023 024 [facility] (Centralized Electronic Ordering - All Locations), Patient Can Go To The Location Of Their Choice, [id number] 4 09:59:04 urinalysis, dipstick 2023 024 [email or web address] [facility], [address] [place] [address], [id number] 4 22:16:27 rapid SARS CoV 2 Ag, QL IA, respiratory specimen 2023 024 [email or web address] [facility], [address] [place] [address], [id number] 4 22:16:30 rapid flu (A+B) 2023 024 [id number] [facility], [address] [place] [address] [place], [address] 4 22:16:35 Referral None recorded. Procedures None recorded. Surgeries None recorded. Imaging None recorded. Medication Orders ipratropium 0.5 mg-albutero l 3 mg (2.5 mg base)/3 mL nebulizatio n soln 2024 025 [facility] [address] [place], [address], 5 20:06:10 albuterol sulfate 2.5 mg/3 mL (0.083 %) solution for nebulizatio n 2024 025 [facility] [address] [place], [address], 5 20:06:11 ipratropium 0.5 mg-albutero l 3 mg (2.5 mg base)/3 mL nebulizatio n soln 2024 025 [facility]acy #2071, [address] [place], [address], 5 20:06:10 prednisone [address] [facility] [address] [place], [address], 5 20:08:18 levofloxaci n 500 mg tablet 2024 025 [facility]acy #2071, [address] [place] [address], [address], 5 19:07:37 levofloxaci n 500 mg tablet 2024 025 [email or web address] [address] [place], [address], 5 19:07:36 cephalexin 500 mg capsule 2023 024 [email or web address], [address] [place], [address], 20:10:17 ceftriaxone 1 gram solution for injection 2023 024 [facility] [address] [place], [address], 4 19:04:48 lactated Ringers intravenous solution 2023 024 [facility]/Pharmacy #2071, [address] [place], [address], 4 19:04:48 levofloxaci n 500 mg tablet 2023 024 [email or web address] [facility], [address] [place], [address], 19:15:51 levofloxaci n 500 mg tablet 2023 024 [email or web address] [facility], [address] [place], [address], 19:15:51 Patient TargetsNo targets recorded. Patient InstructionsNo instructions recorded. Reason for Referral None Reported. Results Created Date Observation Date Name Description Value Unit Range Abnormal Flag Note LastModifiedBy Organization Detail LastModifiedTime 06/26/2006/28/2024 URINE CULTU REJAYLEN urine culture, routine Final report Not Available [facility] ([facility]) [address] [place], [address], 06/28/2024 08:08:50 06/26/20 24 06/28/2024 URINE CULTU REJAYLEN result 1 COMMEN T Mixed uroge nital rimma 50,00 0-100 ,000 colon y formi ng units per mL Not Available [facility] ([facility]) [address] [place], [address], 06/28/2024 08:08:50 04/24/20 25 03/20/2025 URINE CULTU RE, ROUTI NE urine culture, routine Final report abnormal Not Available [facility] ([facility]) [address] [place], [address], 03/20/2025 14:07:03 03/16/20 25 03/20/2025 URINE CULTU [...] ng units per mL Not Available [facility] ([facility]) [address] [place], [address], 03/20/2025 14:07:03 03/16/20 25 03/20/2025 URINE CULTU [...] ng units per mL Not Available [facility] ([facility]) [address] [place], [address], 03/20/2025 14:07:03 03/16/20 25 03/20/2025 URINE CULTU [...] im/Spicer lfa S S Not Available [facility] ([facility]) [address] [facility], [place], [address], 03/20/2025 14:07:03 Result Notes None recorded. Problems Name Problem SNOMED Code Status Onset Date Resolution Date Notes Provider Name and Address Organization Details Recorded Time Asthma 890044144 Active 025 Chhaya Lovett MD [address] [place] [address],[address] [place] [address], [place], [address] , ANTERI[employer] Gibberin, [employer] 03/26/2025 20:06:52 Problem Notes None recorded. Medical Equipment None Reported. Allergies Allergen ID Allergen Name Allergen Category Reaction Reaction Severity Criticality Documentation Date Start Date Code Code System Note Provider Name and Address Organization Details Recorded Time 186 Bactrim medicatio n Not available Not available Not available 01/02/2023 94621 9 RxNorm Not Available [facility] - production 17:39:26 1868 Symbicort medicatio n Not available Not available Not available 01/02/2023 89390 8 RxNorm Not Available [facility] - production [...] prednisone 10 mg tablet TAKE 5 TABLETS EVERY DAY BY ORAL ROUTE FOR 4 DAYS. active Not Available Not Available No t Available naproxen 375 mg tablet TOME 1 [...] No t Available doxycycline monohydrate 100 mg tablet TOME 1 TABLETA POR V A ORAL DOS VECES AL D A POR 10 D active Not Available Not [...] Available N ot Available Vitals Date Recorded Body temperature Oxygen saturation Oxygen saturation in Arterial blood by Pulse oximetry Respiratory rate Heart rate Systolic And Diastolic Provider Name and Address Organization Details Last Updated DateTime 5 97.6 [degF] 95 % 95 % 18 /min 61 /min 134/78 mm[Hg] Not Available [facility] 5 19:04:46 Date Recorded Heart rate Oxygen saturation Oxygen saturation in Arterial blood by Pulse oximetry Body weight Body temperature Respiratory rate Body height Systolic And Diastolic Provider Name and Address Organization Details Last Updated DateTime 5 69 /min 94 % 94 % 6803.88 g 98.1 [degF] 16 /min 160.02 cm 140/85 mm[Hg] Not Available [facility] 5 20:01:40 Date Recorded Oxygen saturation Oxygen saturation in Arterial blood by Pulse oximetry Respiratory rate Body temperature Heart rate Systolic And Diastolic Provider Name and Address Organization Details Last Updated DateTime 4 96 % 96 % 16 /min 98.5 [degF] 97 /min 118/76 mm[Hg] Not Available [facility] 4 19:11:28 Date Recorded Body temperature Respiratory rate Oxygen saturation Oxygen saturation in Arterial blood by Pulse oximetry Heart rate Systolic And Diastolic Provider Name and Address Organization Details Last Updated DateTime 4 99.2 [degF] 16 /min 97 % 97 % 106 /min 137/74 mm[Hg] Not Available [facility] 4 18:48:52 Date Recorded Heart rate Body temperature Respiratory rate Oxygen saturation Oxygen saturation in Arterial blood by Pulse oximetry Systolic And Diastolic Provider Name and Address Organization Details Last Updated DateTime 4 90 /min 97.6 [degF] 16 /min 96 % 96 % 90/63 mm[Hg] Not Available [facility] 4 18:31:49 Social History None recorded. Functional [...] Marilee Boo MD [facility] - [facility] [address] [place] [address] 04/26/2022 12:48:38 07/22/2022 11:34:29 Acute urinary tract infection [id number] N39.0 51 year old female being evaluated for 2 days of dysuria and bilateral flank pain. Per data gathered by inspector wreath, patient with normal vital signs, able to tolerate PO, with positive urine dip. Reports last UTI was 3 months ago, felt the same as current symptoms, and was treated with ciprofloxa sam.Will send urine for culture, and empiricall y treat as uncomplica micki with Cipro 250 mg BID x 3 days. [id number] Megan Willard MD [facility] - [address] [phone] 08/23/2022 15:32:23 08/25/2022 14:41:53 COVID-19 308843457 U07.1 COVID (+). mild tachypnea and cough +wheeze. no increased WOB. prescribed paxlovid, deferring oral steroids given unclear benefit in context of covid. recommende d continued adherence to maintenanc e inhalers. 7618 Kenan Hart MD [address] [address] 12/31/2022 11:46:11 01/02/2023 10:01:19 Increased frequency of urination 273354461 R35.0 This 52-year-ol d female called her PCP today complainin g of dysuria, urinary frequency, back and pelvic pain for several days. Her PCP requested visit by Leslye. She has a history of a neurogenic bladder and frequent UTIs. Her U/A was negative. I ordered a U/C to be sent to [facility]. She will follow-up with her PCP. The patient agreed with this plan. 7935 Froy Chaves MD [address] [phone] 01/13/2023 18:35:24 01/15/2023 16:38:46 Pruritus of vagina 60942013 L29.3 Reports that she was seen earlier by [facility] for urinary symptoms. She had a negative urine dip but the culture grew back bacteria. She was treated with Cipro for a week. She continues to have symptoms but now reports vaginal itching. UA reviewed and no evidence of UTI. Will send this for culture, although doubt bacterial process. Will treat empiricall y for vaginal candidiasi s. 8549 Neisha Mario MD [address] [phone] 02/04/2023 20:31:29 02/06/2023 11:05:02 Respiratory tract congestion and cough 083564117 R05.9 8770 Geena Slater MD Main - [facility] [address] [place] [phone] 02/12/2023 16:08:06 02/16/2023 12:55:21 Cellulitis of lower limb 106347441 L03.119 right lower leg s/p animal scratch [...] to call for re eval at once. [id number] Chhaya Lovett MD Main - [facility] [address] [place] [phone] 04/20/2023 16:36:23 04/21/2023 12:00:18 Cellulitis 921954534 L03.90 [id number] SANDRA BROUSSARD MD Main - [facility] [address] [place] [phone] 06/24/2023 15:28:26 06/25/2023 12:16:09 Candidal vulvovaginitis 94065757 B37.31 [id number] Froy Chaves MD [facility] - [facility] [address] [place] [phone] 08/21/2023 17:13:09 08/22/2023 11:34:46 Acute cystitis 93796652 N30.01 Patient reports urinary frequency, burning, and urgency consistent with her typical UTI symptoms. No history of MDR infections in the past. No systemic signs/symp toms to suggest sepsis. Plan for empiric treatment and outpatient follow-up as needed. [id number] Froy Chaves MD [facility] - [facility] [address] [place] [phone] 10/12/2023 19:23:25 10/13/2023 10:50:43 Cellulitis of lower limb 999207910 L03.119 Patient reports being scratched (NOT bitten) by the dog, now with some surroundin g erythema. Notably does have some venous stasis changes bilaterall y but with some worsened edema. Given risk of progressio n, will treat empiricall y for cellulitis . Advised close PCP follow-up for wound check. [id number] Hang Olsen MD [facility] - [facility] [address] [place] [phone] 06/26/2024 19:11:26 06/26/2024 22:29:47 Acute urinary tract infection 669932461 N39.0 fever since 06/22, no features of sepsis at this time. Will plan for 5 day treatment w levaquin. [id number] Froy Chaves MD [facility] - [facility] [address] [place] [phone] 07/12/2024 18:48:44 07/12/2024 21:13:42 Cellulitis of right lower limb [id number] 3922491 L03.115 Patient with a history of cellulitis presenting with similar. Slight tachycardi a and low grade temperatur e is concerning for developing infection. Given systemic symptoms, will treat with a dose of ceftriaxon e while awaiting rx from pharmacy. Reviewed return precaution s and discussed low threshold to go to ED if symptoms worsen given potential for sepsis. [id number] Marilee Boo MD [facility] - [facility] [address] [place] [phone] 07/18/2024 18:31:36 07/18/2024 23:37:59 Cellulitis of lower limb [id number] L03.119 53 year old female being evaluated [...] assessment and plan as documented by the inspector wreath. I provided real-time medical direction for this encounter and was immediatel y available to provide additional phone-base d assistance as needed. We discussed the diagnostic uncertaint y of home visits and associated risks. We discussed the need to seek care urgently/e mergently in the setting of any new or worsening symptoms. [id number] Neisha Mario MD [facility] - [facility] [address] [place] [phone] 03/16/2025 19:04:42 03/16/2025 20:50:47 Urinary symptoms 741950406 R39.9 [id number] Chhaya Lovett MD Main - [facility] [address] [place] [phone] 03/26/2025 20:01:36 03/27/2025 00:17:21 Acute COVID-19 3608840489 U07.1 Asthma 089021125 J45.90 9 Health Concerns Section Related Observation LastModified by Organization Detai ls LastModified Time None Recorded Concern Status LastModified by Organization Details LastModified Time None Recorded Advance Directives Directive None Recorded Payers Insurance Date Sequence Insurance Name Policy Number Policy Cabrera Covered Member ID Cabrera Member ID Guarantor Name 03/16/2025 1 [facility] - DOS PRIOR TO 2023 - DUAL ELIGIBLE (MEDICARE REPLACEMENT/ADV ANTAGE - HMO) Radha Vera [id number] Radha Vera 03/26/2025 1 [facility] - DOS ON OR AFTER 2023 - DUAL ELIGIBLE - [facility] OPTIONS AND ONE CARE (MEDICARE REPLACEMENT/ADV ANTAGE - HMO) Radha Vera [id number] Radha Vera Notes Date Note Type Note Provider Name and Address Organization Details Recorded Time 06/26/2024 text/html [facility] Nurse Triage Notes (Horace Tran): Chief Complaints: Fever/Chills, Pain PMH: Neurologic (E.G. ALS/MS), COPD/Asthma, Hypertension Allergies: Trimethoprim-Sulfam ethoxazole Comments: [employer] Developer verified the member's name//address and phone number. [...] emergency treatment if needed -George Tran RN Film Recordist Organization Information for Franco Huff [employer] Legal Name: [employer]. Address: [address] [place] [address], [place] Regulator: Bret Champagne MD [facility] No.: [id number] Film Recordist POC Test Results from [employer] Rapid [...] ................... ................... ................... ................... ................... ................... ........ Film Recordist Note From Franco Huff: Dispatched to the [...] ................... ........ Disposition: Fulfilled Hang Olsen MD [address] [place] [address],[address], [place], [address], [employer] 06/26/2024 22:16:52 07/12/2024 text/html CRC Nurse Triage Notes (Naomie Ponce): Reason For Request: Patient has leg pain, and feels like her bones hurt. Chief Complaints: Cellulitis PMH: Neurologic (E.G. ALS/MS), COPD/Asthma, Hypertension Allergies: Trimethoprim-Sulfam ethoxazole Comments: [employer] verified the member's name//address and phone number. [...] ................... ................... ................... ................... ................... ................... ........ Film Recordist Note From Trae Song: Pt reports today [...] ................... ................... ................... ................... ........ Disposition: Christal Chaves MD [address] [facility],[address], [place], [address], [place] [employer] [facility] 07/12/2024 20:10:23 07/18/2024 text/html HPI: Call returned to Radha Vera to triage below. Multiple pictures sent via Portal since 07/15. Pt handed phone to Ciarra pt caregiver. No injury to area. Warm to touch. Having pitting edema. Tender to touch. Pain with bearing. Pt was having fever last week. Pt seen by [facility] on Thursday and given IV abx and Keflex QID x 4 days. Pt still has 10 capsules left. Pt still having redness and pain. Pt seen by Vascular surgeon and advised elevation and increased lasix to 40mg daily. Per Ciarra no improvement since then. Advised of disposition, agrees to [facility] referral for re-assessment and POCT blood work ................... ................... ................... ................... ................... ................... ................... ........ CRC Nurse Triage Notes (Nydia Tee): Chief Complaints: Cellulitis PMH: Neurologic (E.G. ALS/MS), COPD/Asthma, Hypertension Allergies: Trimethoprim-Sulfam ethoxazole Other Allergies: Budesonide, formeterol, topiramate, oxybutynin Comments: CRC RN did not require any additional information to process this visit. ................... ................... ................... ................... ................... ................... ................... ........ Film Recordist Note From Trae Song: I visited Ms [...] pitting edema. 911 initiated for transport to [place] [facility]. SBAR to [facility]. ................... ................... ................... ................... ................... ................... ................... ........ Disposition: Fulfilled Marilee Boo MD [address] [place] [address],[address], [place], [address], [employer] 07/18/2024 21:34:52 03/16/2025 text/html CRC Nurse Triage [...] at 03/16/2025 - 17:39 Allergies Reviewed at 03/16/2025:39 Comments: 54 y.o female c/o pain in [...] signs of when to seek emergency care. Film Recordist Organization Information for Shalom Tineo Business Legal Name: [employer]. Address: [address] [place] [address], [place] Regulator: Bret Champagne MD [facility] No.: [id number] Film Recordist POC Test Results from [employer] Urine [...] ................... ................... ................... ................... ................... ................... ........ 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 Arrival on scene, patient was found inside with denitrator operator seated in wheel chair, alert and oriented x4, patent airway, breathing non labored speaking in complete sentences, skin WPD in no immediate distress. +/= Chest rise. -SOB, -CP, -NVD, -Trauma, -Fever. GCS 15. Abdomen soft but tender on palpation, right sided CVA tenderness present. Appliance Servicer reports that the patient has been having a constant diffuse abdominal pain radiating to the right flank since about Thursday. Appliance Servicer also reports blood present in diaper but unsure of where the blood came from, reports blood subsided yesterday. Appliance Servicer reports patient has history of both UTI and Kidney stones, last one of each being over a year ago. Appliance Servicer reports no recent trauma, fever, chills, SOB, CP, NVD. Appliance Servicer denies any urinary symptoms that were consistent with last UTI but would still like patient to be tested for one. Appliance Servicer reports normal food/fluid intake along with medication compliance. Patient vital signs obtained as noted. Patient able to provide urine sample via clean catch, urine culture obtained for lab sheila send out followed by urine dipstick as noted. [facility] consulted, advised she would send prescription for Levofloxacin for patient to take and provided orders to [facility] for 500mg Levofloxacin PO. Levofloxacin 500mg PO administered to patient without incident, six patient rights verified prior. Red flags discussed with patient and denitrator operator, advised to call back if patient condition worsens. SC8 Clear. [facility] Lab Orders: urinalysis, dipstick: Performed culture, urine: Performed [facility] Medication Orders: levofloxacin 500 mg tablet: Administered ................... ................... ................... ................... ................... ................... ................... ........ [facility] Consulted: Neisha Mario ................... ................... ................... ................... ................... ................... ................... ........ Disposition: Fulfilled Neisha Mario MD [address] [facility],[address], [place], [address], [employer] 03/16/2025 20:40:28 03/26/2025 text/html CRC Nurse Triage Notes (Horace Tran): Reason For Request: COVID test/congestion/fev er Denies: Increased work of breathing/labored with or without fever Unable to speak in full sentences without distress Discoloration of skin -cyanosis Needs to sleep sitting up, can t catch breath Shortness of breath in setting of confusion Chief Complaints: Fever, Common Cold PMH: COPD/Asthma, Hypertension, Kidney Stones, Sleep Apnea PMH Reviewed at 03/26/2025:14 Allergies Reviewed at 03/26/2025:14 Comments: 54 y.o female complains of Fever, [...] signs of when to seek emergency care. Film Recordist Organization Information for Sandra Reyes [employer] Business Legal Name: [employer]. Address: [address] [place] [address], [place] Regulator: Bret Champagne MD CLIA No.: [id number] Film Recordist POC Test Results from [employer] Rapid COVID antigen (18:42:22) COVID: + Attachments uploaded as part of this test result can be found under Documents section. Rapid influenza antigen (18:42:23) Flu: - Rapid strep test (18:42:24) Strep: - ................... ................... ................... ................... ................... ................... ................... ........ Film Recordist Note From Sandra Reyes: [facility] makes pt contact. She is wearing a mask and sitting in her walker in the kitchen of the home where she lives w/ family. She is alert and tracking and smiling at [facility]. Pt is generally well-appearing and not [...] has been many years . [facility] swabs pt for COVID/flu and strep [...] and no changes are reported. [facility] contacts [facility] and discusses the above. [facility] recommends pt continue w/ supportive care and orders [facility] to administer a duoneb. [facility] administers one duoneb at 8 lpm O2 via nebulizer mask. Pt tolerates treatment well and lung sounds improve and are clear to auscultation bilaterally. She is informed of s/s which require emergency care. [facility] prescribes a 5 day course of prednisone for the pt w/ the instructions to start them tomorrow if she is still feeling the same as she does today. Pt states her verbal understanding of the instructions. MIH is clear. Report completed by JAMES Reyes [id number]. [facility] Lab Orders: rapid SARS CoV 2 Ag, QL IA, respiratory specimen: Performed rapid flu (A+B): Performed rapid strep group A, throat: Performed [facility] Medication Orders: ipratropium 0.5 mg-albuterol 3 mg (2.5 mg base)/3 mL nebulization soln: Administered albuterol sulfate 2.5 mg/3 mL (0.083 %) solution for nebulization: Administered ipratropium 0.5 mg-albuterol 3 mg (2.5 mg base)/3 mL nebulization soln: Administered ................... ................... ................... ................... ................... ................... ................... ........ [facility] [place] Consulted: Chhaya Lovett ................... ................... ................... ................... ................... ................... ................... ........ Disposition: Fulfilled Chhaya Lovett MD [address] [place] [address],[address], [place], [phone], PRAMOD CELESTIN 03/26/2025 20:31:21 OBGyn Episode No OBEpisode recorded.
== END 2025-06-08 15:27 | disposition home or self-care (01) ==
LOC: HO.HOS 14:58
PROVIDERS: PCP Family Medicine; Visit Provider Physician Assistant
DX: M17.11 Unilateral primary osteoarthritis, right knee (principal)
CPT/HCPCS: 20610

== ENCOUNTER → 2025-06-08 14:57 | Outpatient (BNVA) | payer OTHER, SELFPAY | PROVIDERS: PCP Family Medicine; Visit Provider Physician Assistant | DX: M17.11 Unilateral primary osteoarthritis, right knee (principal) | CPT/HCPCS: 20610; J1010; J2003 ==

== ENCOUNTER 2025-06-22 09:26 | Outpatient (AMB) | payer OTHER, SELFPAY ==
--- OUTSIDE RECORDS SUMMARY | 2025-03-03 05:30 | XMS_ITS ---
Author Organization [facility] Address [address] [place] [address] Care Team Providers Care Electrician Marine Name Role Phone Marisabel Michel Primary Care Provider UnavailYoni Deng Unavailable [phone] Halel Bustillo Unavailable [phone] REASON FOR VISIT Seen Sooner Encounters Encounter [facility] [address] 03/03/2025 Halle Bustillo Plan Of Treatment Next Appt Details Provider Name:Yoni Bhatt , 08/02/2025 03:15:00 PM, [address] [place] [address], [phone], Provider Name:Yoni Bhatt , 11/01/2025 03:15:00 PM, [address] [place] [address], [phone], Progress Notes * Radha JACKDOB: [birth year] (54 yo F)Acc No.[id number]:03/03/2025 Progress Note Patient: Radha DIOP Provider: Shrewin Bustillo DPM :1970 A ge:54 Y S ex:Female Date:03/03/2025 Address:[address] [place] [address] Pcp:Marisbael Michel Subjective: * Chief Complaints: * [...] 03/03/2025 Generated for Deny lou/Klaudia/David on: 0 06/22/2025 09:44 AM EDT
--- NOTE | 2025-06-22 09:27 | MHC.OFFVIS ---
Intake Visit Reasons: OV-Rt shoulder steroid inj Intake Note: Radha is a 54 year old female who presents today for a right shoulder steroid injection. At last visit we discussed to schedule a Botox injection, which is scheduled for 06/28/25 at 13:00 or 2:00(need to confirm with patient's sister). At today's visit she states that the right shoulder is feeling a little bit better than last visit, she is continuing her at home exercises and she is seeing improvements. Allergies budesonide (From SYMBICORT) Allergy (Intermediate, Verified 06/22/25 09:33) TREMOR formoterol (From SYMBICORT) Allergy (Intermediate, Verified 06/22/25 09:33) TREMOR sulfamethoxazole (From BACTRIM) Allergy (Intermediate, Verified 06/22/25 09:33) RASH trimethoprim (From BACTRIM) Allergy (Intermediate, Verified 06/22/25 09:33) RASH Sulfa (Sulfonamide Antibiotics) Allergy (Unknown, Verified 06/22/25 09:33) Unknown Symbicort Allergy (Unknown, Uncoded 05/18/25 08:33) Unknown HPI Comments Details: Here with sister Ciarra. Patient able to give me history. Born with CP. WC level. Stands to transfer but poor balance, need transfer gait and a lot of assistance. Total assistance for dressing, shower, toileting. Independent with brushing and feeding with left hand. Sister prepares meals. Noted right arm stiffness for at least 5 years, probably more. She was always left handed. RUE was always weaker and almost non functional. Right wrist surgery for difficulty to control fingers. She can flex right elbow but cannot flex wrist, very slight finger flexion and extension voluntarily. Limited right shoulder ROM, unable to lift over head. Complains of right shoulder pain. This makes cleaning under arm and dressing very difficult. No medication or injection on RUE to treat. No recent PT or OT. [facility] Medical History Wheelchair dependence Edema of both lower extremities Hx of cerebral palsy GERD (gastroesophageal reflux disease) Asthma Alopecia Surgical History History of surgery Hx of appendectomy History of esophagogastroduodenoscopy (EGD) Hx of colonoscopy Hx of lithotripsy Social History Household Members: Family Housing: House Alcohol intake: never Patient Tobacco Use Status: Never used Tobacco service: No Current occupational status: disabled Office Procedures AMB Joint Injection/Aspiration Joint Injection/Aspiration Details: Consent was obtained. The distal, lateral, and posterior edges of the right acromion are palpated. Area is cleansed with betadine solution. A 27 gauge needle is inserted just inferior to the posterolateral edge of the acromion. The needle is directed toward the opposite chest. A solution containing 40 mg Kenalog and 3 ml of 2% Lidocaine is injected. Patient tolerated procedure well without complications. Post-injection instructions given. Primary Site: right shoulder Prep: site was prepped using aseptic technique Injected: 40 mg of, Kenalog and with 3 mL of (2% lidocaine) Procedure: The patient tolerated the procedure well Coding 43231 - Large joint Procedure code (CPT) selection complete Office Meds Kenalog 40 mg/mL suspension for injection Performing Provider: Brittanie Sullivan MD [place]forming [place] [facility] Documented (not given) by: Brittanie Sullivan MD on 06/22/25 12:06 Dose Route Admin Location Dispensed Lot Number Expiration Date NDC Roll Forger 40 mg intrabursal mL Total Dispensed Waste n/a n/a Results Reviewed Results Reviewed: Ordering Physician: Brittanie Gambino Date of Service: 05/18/25 Procedure(s): XR shoulder RT min 2V Accession Number(s): [id number] cc: Brittanie Gambino; Marisabel Michel MD~ EXAMINATION: XR SHOULDER, RIGHT CLINICAL INFORMATION: M25.511 - Pain in right shoulder COMPARISON: None available. TECHNIQUE: Two views of the right shoulder. FINDINGS: Normal bone mineralization. No fracture, dislocation, or suspicious bone lesion. Normal alignment. The glenohumeral joint is grossly normal given suboptimal AP projection. The joint space is not well imaged. The AC joint demonstrates minimal spurring, predominantly superior surface. There is a type II acromion. No undersurface spurring. There is loss of the subacromial space, with mild superior subluxation of the humeral head upon the glenoid, suggesting rotator cuff tear. Remainder of the soft tissue and bony structures appear normal. XR/XR shoulder RT min 2V IMPRESSION: 1. No acute fracture or dislocation. 2. Loss of the subacromial space suggesting rotator cuff tearing. Electronically signed by: Bayron Aviles MD 05/18/2025 09:17 AM EDT RP Assessment & Plan Assessment & Plan (1) Right shoulder pain: Code(s): M25.511 - Pain in right shoulder Category: Medical Qualifiers: Chronicity: chronic Qualified Code(s): M25.511 - Pain in right shoulder; G89.29 - Other chronic pain (2) Right rotator cuff tendonitis: Code(s): M75.81 - Other shoulder lesions, right shoulder Category: Medical (3) Spastic monoplegia of upper extremity: Code(s): G83.20 - Monoplegia of upper limb affecting unspecified side Category: Medical (4) Hx of cerebral palsy: Code(s): Z86.69 - Personal history of other diseases of the nervous system and sense organs Category: Medical Plan Patient tolerated procedure well. They had questions regarding botulinum toxin injections for spasticity, answered to best of my ability. We agreed to see if the steroid injection would help with the shoulder range of motion and tightness in right arm. I suspect it will help with pain but not so much with spasticity. I will see her in 1 month and then they will decide whether they will pursue botulinum toxin injection or not. Assessment and plan discussed with patient, and patient was agreeable. All questions were answered thoroughly. Follow up 1 month. Brittanie Sullivan MD, MANJIT Board Certified, [place] [employer] and Rehabilitation (ABPMR) Board Certified, [place] Board of Electrodiagnostic Medicine (ABEM) Orders: Orders AMB Joint Injection/Aspiration Today G89.29 - Other chronic pain, M25.511 - Pain in right shoulder Medications: New Kenalog (triamcinolone acetonide) 40 mg intrabursal ONCE 1 mL 0RF NS G89.29 - Other chronic pain, M25.511 - Pain in right shoulder Coding Level of Care Code Est Pt Level 3 (77660) Diagnoses Chronic right shoulder pain M25.511; G89.29 Chronicity: chronic Right rotator cuff tendonitis M75.81 Spastic monoplegia of upper extremity G83.20 Hx of cerebral palsy Z86.69 CPT Codes Coding - 74773 Large joint: 23990 - Large joint ([id number])
--- OUTSIDE RECORDS SUMMARY | 2025-06-22 09:44 | XMS_ITS | Patient Health Record ---
Author Organization [facility] Address [address] [place] [address] Care Team Providers Care Tip Cutter Name Role Phone Anand DIOR, Marisabel Primary Care Provider George Hyman Unavailable [phone] Reason For Referral No Information Medications Medication [...] tablet Orally Once a day Active Nystatin 007911 UNIT/ML 4 ml Mouth/Throa t Twice a [...] W/U Status Risk Notes Problem Esophageal reflux (330899776) Esophageal reflux (K21.9) Active confirmed Problem 279299124 Encounter for screening for malignant neoplasm of colon (Z12.11) Active confirmed Problem 630149584 Gastroesophageal reflux disease, esophagitis presence not specified (K21.9) Active confirmed Problem 789854985 Family history o f colon cancer (Z80.0) Active confirmed Problem Benign neoplasm of stomach (50594073) Gastric polyps (K31.7) Active confirmed Problem 15019991 Oropharyngeal dysphagia (R13.12) Active confirmed Problem 667313755 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 Problem Diverticulosis of sigmoid colon (354161333) Diverticulosis of sigmoid colon (K57.30) Active confirmed [...] Insured Coverage Start Date Coverage End Date [facility] [address] [place] [address] [id number] CARL JACK Self - patient is the insured MEDICAID OF [employer] [address] [place] [phone] [id number] CARL JACK Self - patient is the insured Medical (General) History Medical History History ICD Code Alopecia Positive H.pylori serology in 07/2013-Rx' d with PPI and antibiotics Asthma Denies GA,DM,CVA,renal disease Kidney stones-[facility] Neg colonoscopy in 2004, [...]
--- OUTSIDE RECORDS SUMMARY | 2025-06-22 09:44 | XMS_ITS | Encounter Summary ---
Author Organization [employer] Address [address] [facility] [address] [place] [address] Care Team Providers Care Prototype Special Build Name Role Phone Marisabel Michel MD Primary Care Provider [phone] Encounter Details Date Type Department Care Team ([facility] st Contact Info) Description 06/30/2024 Orders Only [facility] [address], [place] [phone] Marisabel Michel MD [address] [place] [address] Prediabetes (Primary Dx); Primary hypertension; Acute right [...] PM EDT) Hemoglobin A1c 6.1(H) <6.0 % [facility] Comment:Hemoglobin A1C Refer ence Range Adults: 4.8 - 6.0 % Non diabetic: < 6.0 % Goal: < 7.0 %Additional Action Suggested: > 8.0 %Note: Hemoglobin A1c results are invalid for patients with abnormal amounts of HbF. Blood transfusions may impact the HbA1c concentration in the patient sample. Estimated Average Glucose 128 mg/dL [facility] Comment:eAG = Estimated ave rage glucose which is %A1C expressed asaverage glucose, using the formula of the P6A-VwzwkkgUevbqwy Glucose study (ADAG), Diabetes Care, Vol.31,#8,Jun. 2007 Blood Venous blood specimen / Unknown 08/02/2024 5:05 PM EDT 08/02/2024 5:10 PM EDT Marisabel Michel MD LAB BLOOD ORDERABLES Final Resul t Performing Organization Address [facility] de Phone Number [facility] [address] [place] [phone] * (ABNORMAL) TSH with Reflex to Free T4 (07/15/2024 3:24 PM EDT) TSH reflex Free T4 0.19(L) 0.32 - 4.0 uIU/mL [facility] Blood 07/15/2024 3:24 PM EDT 07/15/2024 3:26 PM EDT Marisabel Michel MD LAB BLOOD ORDERABLES Final Resul t Performing Organization Address [facility] de Phone Number [facility] [address] [place] [phone] * (ABNORMAL) Sed Rate by Modified Jenniferren (07/15/2024 3:24 PM EDT) Erythrocyte Sedimentation Rate 71(H) 0 - 20 MM/HR [facility] Comment:Patients with polycy themia and many hemoglobin abnormalitiesmay have depressed sed rates whereas patients with anemiamay have elevated sed rates. Blood Venous blood specimen / Unknown 07/15/2024 3:24 PM EDT 07/15/2024 3:26 PM EDT Marisabel Michel MD LAB BLOOD ORDERABLES Final Resul t Performing Organization Address [facility] de Phone Number [facility] [address] [place] [phone] * (ABNORMAL) C-reactive Protein (07/15/2024 3:24 PM EDT) C Reactive Protein 18.68(H) < or = 0.50 mg/dL [facility] Blood Venous blood specimen / Unknown 07/15/2024 3:24 PM EDT 07/15/2024 3:26 PM EDT Marisabel Michel MD LAB BLOOD ORDERABLES Final Resul t Performing Organization Address [facility] Phone Number [facility] [address] [place] [phone] * Uric acid (07/15/2024 3:24 PM EDT) Uric Acid 4.8 2.4 - 5.7 mg/dL [facility] Blood Venous blood specimen / Unknown 07/15/2024 3:24 PM EDT 07/15/2024 3:26 PM EDT Marisabel Michel MD LAB BLOOD ORDERABLES Final Resul t Performing Organization Address [facility] de Phone Number [facility] [address] [place] [phone] * (ABNORMAL) Comprehensive Metabolic Panel (07/15/2024 3:24 PM EDT) Sodium 141 135 - 145 mmol/L [facility] Potassium 3.5 3.3 - 5.1 mmol/L [facility] Chloride 105 96 - 108 mmol/L [facility] Carbon Dioxide 20(L) 22 - 29 mmol/L [facility] Anion Gap 20 12 - 20 [facility] Urea Nitrogen (BUN) 13 9 - 16 mg/dL [facility] Creatinine, Serum 0.81 0.5 - 1.4 mg/dL [facility] Estimated Glomerular Filt Rate >60 [facility] Comment:NOTE: For -Am erican individuals, multiply the result by 1.210.Chronic Kidney Disease: Estimated GFR < 60 mL/min/1.42y8Jeiqra Kidney Disease: Estimated GFR < 15 mL/min/1.73m2 Glucose 91 60 - 115 mg/dL [facility] Calcium 10.5(H) 8.4 - 10.2 mg/dL [facility] Bilirubin, Total 0.4 0.0 - 1.0 mg/dL [facility] Aspartate Amino Transferase 17 5 - 31 U/L [facility] Alanine Aminotransferase 18 0 - 31 U/L [facility] Total Protein 8.5(H) 6.5 - 8.0 g/dL [facility] Albumin Level 4.3 3.5 - 5.0 g/dL [facility] Alkaline Phosphatase 87 39 - 117 U/L [facility] Blood Venous blood specimen / Unknown 07/15/2024 3:24 PM EDT 07/15/2024 3:26 PM EDT us Marisabel Michel MD LAB BLOOD ORDERABLES Final Resul t [facility] [address] [place] [phone] * (ABNORMAL) CBC auto differential (07/15/2024 3:24 PM EDT) White Blood Count 8.9 4.8 - 10.8 X10*3/uL [facility] Red Blood Count 4.49 4.20 - 5.50 X10*6/uL [facility] Hemoglobin 12.9 12.0 - 16.0 g/dl [facility] Hematocrit 39.1 37.0 - 47.0 % [facility] Mean Corpuscular Volume 87.1 80.0 - 98.0 fL [facility] Mean Corpuscular Hemoglobin 28.7 27.0 - 33.0 pg [facility] Mean Corpuscular HGB Conc 33.0 31.0 - 35.0 g/dl [facility] Red Cell Distribution Width 13.7 11.0 - 16.0 % [facility] Platelet Count 223 160 - 400 X10*3/uL [facility] Mean Platelet Volume 13.1(H) 9.4 - 12.3 fL [facility] Neutrophils Percent Auto 68.4 45 - 73 % [facility] Imm Gran Pct Auto 0.6(H) 0.0 - 0.4 % [facility] Lymphocytes Percent Auto 17.3(L) 20 - 40 % [facility] Monocytes Percent Auto 10.3 2 - 11 % [facility] Eosinophils Percent Auto 3.1 0 - 4 % [facility] Basophils Percent Auto 0.3 0 - 2 % [facility] NRBC Pct Auto 0.0 0.0 - 0.2 /100WBC [facility] Neutrophils Absolute Auto 6.1 2.0 - 8.3 x10*3/uL [facility] Imm Gran Abs Auto 0.05(H) 0.00 - 0.03 X10*3/uL [facility] Lymphocytes Absolute Auto 1.6 1.2 - 4.9 X10*3/uL [facility] Monocytes Absolute Auto 0.9 0.1 - 1.2 X10*3/uL [facility] Eosinophils Absolute Auto 0.3 0.0 - 0.4 X10*3/uL [facility] Basophils Absolute Auto 0.0 0.0 - 0.2 X10*3/uL [facility] NRBC Abs Auto 0.000 0.0 - 0.012 X10*3/uL [facility] Blood Venous blood specimen / Unknown 07/15/2024 3:24 PM EDT 07/15/2024 3:26 PM EDT Marisabel Michel MD LAB BLOOD ORDERABLES Edited Resu lt - Final [facility] [address] [place] [phone] * [facility] US Lower Extremity Venous Duplex Bilateral (07/15/2024 2:00 PM EDT) 07/15/2024 2:00 PM EDT Narrative [facility] - 07/15/2024 2:49 PM EDT [address] [address] Ultrasound Report Signed Patient: Radha Kimball MR#: [id number] : 1970 Acct:[id number] Age/Sex: 53 / F ADM Date: 07/15/24 Loc: .US Attending Dr: Sebastian Matta MD Ordering Physician: Sebastian Matta MD Date of Service: 07/15/24 Procedure(s): US venous duplex LE BI Accession Number(s): [id number] cc: Sebastian Matta MD; Marisabel Michel MD [...] 07/15/24 1445 DD/ 1400 TD/TT: 07/15/24 1420 Instrument Operator: Procedure Note Ameyater, Image - 07/15/2024 [place] [address] Ultrasound Report Signed Patient: Radha Kimball#: [id number] : 1970Acct:[id number] Age/Sex: 53 / FADM Date: 07/15/24 Loc: HO.US Attending Dr: Sebastian Matta MD Ordering Physician: Sebastian Matta MD Date of Service: 07/15/24 Procedure(s): US venous duplex LE BI Accession Number(s): [id number] cc: Sebastian Matta MD; Marisabel Michel MD [...] 07/15/24 1445 DD/ 1400 TD/TT: 07/15/24 1420 Instrument Operator: [facility] External Provider CV VASC ULAR PROCEDURES Final Result [facility] [address] [place] [address] documented in this encounter Visit Diagnoses Diagnosis Prediabetes- Primary Other abnormal glucose Primary hypertension Unspecified essential hypertension Acute right ankle pain Fever, unspecified fever cause documented in this encounter Additional Health Concerns Assessment Noted Time PHQ-9 Depression Total Score: 0 03/29/20 24 3:23 PM EDT documented as of this encounter Care Teams Prototype Special Build Relationship Specialty Start Date End Date Marisabel Michel MD [address] [place] [phone] PCP - General Family Medicine 09/04/11 documented as of this encounter
--- OUTSIDE RECORDS SUMMARY | 2025-06-22 09:44 | XMS_ITS | Clinical Summary ---
Author Organization [facility] Address [address] [place] [phone] Phone Care Team Providers Care Supervisor Pumping Station Name Role Phone Marisabel Michel MD Primary Care Provider [phone] Social History Tobacco Use Types Packs/Day Years Used Date Smoking Tobacco: Never Assessed Education Answer Date Recorded Are you interested in more education? Not on delphine e 11/28/2024 Are you concerned about learning? Not on file 11/28/2024 No 11/28/2024 No 11/28/2024 Digital Access Answer Date Recorded No 11/28/2024 No 11/28/2024 Reliable internet access at home? Not on file 11/28/2024 Device with a working camera? Not on file Comments Unknown Sex and Gender Information Value Date Recorded Sex Assigned at Not on file Legal Sex Female 4:15 PM EST Gender Identity Not on file Sexual Orientation Not on file Plan of Treatment Health Maintenance Due Date Last Done Comments LIPID PANEL 1970 DEPRESSION SCREENING 1982 SMOKING Hx and SMOKELESS TOBACCO SCREENING 1983 HEPATITIS C SCREENING 1988 HIV ONE-TIME SCREENING (18-6 5 YEARS) 1988 PAP SMEAR 1991 COLOGUARD 2015 COLONOSCOPY 2015 COLORECTAL CANCER SCREENING 2015 FIT TEST 2015 FOBT 2015 SIGMOIDOSCOPY 2015 VIRTUAL COLONOSCOPY 2015 PNEUMOCOCCAL VACCINES (50+ years) (2 of 2 - PCV) 2020 07/12/2009 ZOSTER VACCINES (1 of 2) 2020 Adult Td,Tdap Booster 07/09/2021 07/09/2011 COVID-19 VACCINE (2023-2 5 season) 2024 MAMMOGRAM 02/13/2025 02/13/2023, 01/04/2019 HEPATITIS A VACCINES Aged Out No long er eligible based on patient's age to complete this topic HIB VACCINES Aged Out No longer eligi ble based on patient's age to complete this topic MENINGOCOCCAL VACCINES (ACWY) Aged Out No longer eligible based on patient's age to complete this topic MENINGOCOCCAL VACCINES (B) Aged Out N o longer eligible based on patient's age to complete this topic Medical Devices Not on file Insurance MEDICARE REPLACEMENT MEDICARE PART A & B [facility] MEDICARE REPLACEMENT MEDICARE PART A & [place] [address] [place] [address] ONE CARE MEDICARE REPLACEMENT MEDICARE PART A & B [employer] MEDICARE REPLACEMENT MEDICARE PART A & B Member Subscriber Plan / Payer ( fective 2016-Present) Name:Gibson Veramen Member ID:[id number] Relation to Subscriber:Self Name:Gibson Veramen Subscriber ID:[id number] Payer ID:[id number] Group ID:Not on file Type:Medicare Address: [facility] [address] CARE MEDICARE REPLACEMENT MEDICARE PART A & B [facility] ONE CARE MEDICARE REPLACEMENT MEDICARE PART A & B Care Teams Supervisor Pumping Station Relationship Specialty Start Date End Date Marisabel Michel MD [address] [place] [phone] PCP - General Family Medicine 10/06/24 Additional Source Comments The information contained in this document represents components of the legal health record. It is not the complete legal health record.[facility]
== END 2025-06-22 09:49 | disposition home or self-care (01) ==
LOC: HO.HOS 09:26
PROVIDERS: PCP Family Medicine; Visit Provider Physical Medicine & Rehabilitation
DX: M25.511 Pain in right shoulder (principal); G89.29 Other chronic pain; M75.81 Other shoulder lesions, right shoulder; G83.20 Monoplegia of upper limb affecting unspecified side; Z86.69 Personal history of other diseases of the nervous system and sense organs
CPT/HCPCS: 20610; 99213

== ENCOUNTER → 2025-06-22 09:26 | Outpatient (BNVA) | payer OTHER, SELFPAY | PROVIDERS: PCP Family Medicine; Visit Provider Physical Medicine & Rehabilitation | DX: M25.511 Pain in right shoulder (principal); G89.29 Other chronic pain; M75.81 Other shoulder lesions, right shoulder; G83.20 Monoplegia of upper limb affecting unspecified side; Z86.69 Personal history of other diseases of the nervous system and sense organs | CPT/HCPCS: 20610; 99212; J2003; J3301 ==

== ENCOUNTER 2025-07-28 09:38 | Outpatient (AMB) | payer OTHER, SELFPAY ==
--- OUTSIDE RECORDS SUMMARY | 2024-12-30 08:00 | XMS_ITS ---
Author Organization [facility] Address [address] [place] [address] Care Team Providers Care Employee Adviser Name Role Phone Marisabel Michel Primary Care Provider UnavailYoni Deng Unavailable [phone] Halle Bustillo Unavailable [phone] Castro Encounters Encounter Location Date Provider Diagnosis Page [facility] [address] 12/30/2024 Halle Bustillo Plan Of Treatment Next Appt Details Provider Name:Yoni Bhatt , 08/02/2025 03:15:00 PM, [address] [place] [address], [phone], Provider Name:Yoni Bhatt , 11/01/2025 03:15:00 PM, [address] [place] [address], [phone], Progress Notes * Radha JACKDOB: [birth year] (54 yo F)Acc No.[id number]:12/30/2024 Progress Note Patient: Radha DIOP Provider: Sherwin Bustillo DPM :1970 A ge:54 Y S ex:Female Date:12/30/2024 Address:[address] [place] [address] Pcp:Marisabel Michel Subjective: * Chief Complaints: * [...] DPM Date: 0 12/30/2024 Generated for Deny lou/Klaudia/David on: 0 07/28/2025 10:21 AM EDT
--- OUTSIDE RECORDS SUMMARY | 2025-03-03 05:30 | XMS_ITS ---
Author Organization [facility] Address [address] [place] [address] Care Team Providers Care Powder Blender And Pourer Name Role Phone Marisabel Michel Primary Care Provider UnavailYoni Deng Unavailable [phone] Halle Bustillo Unavailable [phone] REASON FOR VISIT Seen Sooner Encounters Encounter [facility] [address] [facility] Halle Bustillo Plan Of Treatment Next Appt Details Provider Name:Yoni Bhatt , 08/02/2025 03:15:00 PM, [address] [place] [address], [phone], Provider Name:Yoni Bhatt , 11/01/2025 03:15:00 PM, [address] [place] [address], [phone], Progress Notes * Radha JACKDOB: [birth year] (54 yo F)Acc No.[id number]:03/03/2025 Progress Note Patient: Radha DIOP Provider: Sherwin Bustillo DPM :1970 A ge:54 Y S ex:Female Date:03/03/2025 Address:[address] [place] [address] Pcp:Marisabel Michel Subjective: * Chief Complaints: * [...] 03/03/2025 Generated for Deny lou/Klaudia/David on: 0 07/28/2025 10:21 AM EDT
--- OUTSIDE RECORDS SUMMARY | 2025-03-24 06:00 | XMS_ITS ---
Author Organization [facility] Address [address] [place] [address] Care Team Providers Care Picker Tender Helper Name Role Phone Marisabel Michel Primary Care Provider UnavailYoni Deng Unavailable [phone] Halle Bustillo Unavailable [phone] Encounters En[facility] [address] 03/24/2025 Halle Bustillo Plan Of Treatment Next Appt Details Provider Name:Yoni Bhatt , 08/02/2025 03:15:00 PM, [address] [place] [address], [phone], Provider Name:Yoni Bhatt , 11/01/2025 03:15:00 PM, [address] [place] [address], [phone], Progress Notes * Radha JACKDOB: [birth year] (54 yo F)Acc No.[id number]:03/24/2025 Progress Note Patient: Radah DIOP Provider: Sherwin Bustillo DPM :1970 A ge:54 Y S ex:Female Date:03/24/2025 Address:[address] [place] [address] Pcp:Marisabel Michel Subjective: * Chief Complaints: * [...] DPM Date: 0 03/24/2025 Generated for Deny lou/Klaudia/David on: 0 07/28/2025 10:22 AM EDT
--- NOTE | 2025-07-28 09:54 | MHC.OFFVIS ---
Intake Visit Reasons: OV-follow up from Rt shoulder steroid inj Intake Note: Radha is a 54 year old female who presents today as a follow up from her Right shoulder steroid injection, 06/22/25. At today's visit she states that the injection did give her relief. Patient states that she would like to add that she did have an injection in her right leg with her Arthritis doctor and that gave relief as well. Allergies budesonide (From SYMBICORT) Allergy (Intermediate, Verified 07/28/25 09:56) TREMOR formoterol (From SYMBICORT) Allergy (Intermediate, Verified 07/28/25 09:56) TREMOR sulfamethoxazole (From BACTRIM) Allergy (Intermediate, Verified 07/28/25 09:56) RASH trimethoprim (From BACTRIM) Allergy (Intermediate, Verified 07/28/25 09:56) RASH Sulfa (Sulfonamide Antibiotics) Allergy (Unknown, Verified 07/28/25 09:56) Unknown Symbicort Allergy (Unknown, Uncoded 05/18/25 08:33) Unknown Medication List - Last Reconciled 07/28/25 by Brittanie Sullivan MD albuterol sulfate 90 mcg/actuation 1 inh inhalation QID alendronate 70 mg PO TH amitriptyline 10 mg PO BEDTIME ammonium lactate 12% 1 appl topical DAILY ascorbic acid (vitamin C) 500 mg PO DAILY Breo Ellipta 200-25 mcg/dose (fluticasone furoate-vilanterol) 1 inh inhalation DAILY 30 days NS calcium carbonate-vitamin D3 500 mg-5 mcg (200 unit) (Oysco 500/D) 1 tab PO DAILY cetirizine 10 mg PO DAILY cholecalciferol (vitamin D3) 1,250 mcg PO QWEEK ciclopirox 0.77% 1 appl topical BEDTIME clotrimazole 10 mg mucous membrane TID diclofenac sodium 1% 1 g topical DAILY PRN diphenhydramine HCl (Banophen) 25 mg PO BEDTIME PRN docusate sodium 100 mg PO BID doxycycline monohydrate 100 mg PO BID 10 days emollient combination no.71 (Lubriderm Advanced Therapy lotion) ea topical ferrous sulfate 325 mg PO DAILY fluticasone furoate 50 mcg/actuation inhalation furosemide 40 mg PO DAILY gabapentin 100 mg PO DAILY hydroxyzine HCl 25 mg PO BEDTIME ipratropium bromide 2.5 mL inhalation Q6H PRN ketoconazole 2% 1 appl topical DAILY ketotifen fumarate 0.025%(0.035%) 1 drp ophthalmic (eye) BID lisinopril 2.5 mg PO DAILY loperamide 2 mg PO Q6H PRN miconazole nitrate 2% (Monistat 7) 1 appful vaginal BEDTIME montelukast 10 mg PO BEDTIME naproxen 375 mg PO DAILY omeprazole 20 mg PO BID@0630,1630 ondansetron 4 mg PO Q8H sumatriptan succinate 50 mg PO Q2-4H PRN terconazole 0.4% 1 appful vaginal BEDTIME triamcinolone acetonide 0.1% 1 appl topical BID PRN HPI Comments Details: Here with sister Ciarar. Patient able to give me history. Born with CP. WC level. Stands to transfer but poor balance, need transfer gait and a lot of assistance. Total assistance for dressing, shower, toileting. Independent with brushing and feeding with left hand. Sister prepares meals. Noted right arm stiffness for at least 5 years, probably more. She was always left handed. RUE was always weaker and almost non functional. Right wrist surgery for difficulty to control fingers. She can flex right elbow but cannot flex wrist, very slight finger flexion and extension voluntarily. Limited right shoulder ROM, unable to lift over head. Complains of right shoulder pain. This makes cleaning under arm and dressing very difficult. No medication or injection on RUE to treat. No recent PT or OT. Radha did not want to start botulinum toxin injections yet. Instead, we trialed right shoulder steroid injection. This improved her right shoulder pain and they report improvement in range of motion. She is happy with her improvement. [facility] Medical History Wheelchair dependence Edema of both lower extremities Hx of cerebral palsy GERD (gastroesophageal reflux disease) Asthma Alopecia Surgical History History of surgery Hx of appendectomy History of esophagogastroduodenoscopy (EGD) Hx of colonoscopy Hx of lithotripsy Social History Household Members: Family Housing: House Alcohol intake: never Patient Tobacco Use Status: Never used Tobacco service: No Current occupational status: disabled Physical Exam Exam Exam: Still limited on right shoulder range of motion but without pain. Right elbow tends to extend but she is able to flex when asked. Results Reviewed Results Reviewed: Ordering Physician: Brittanie Gambino Date of Service: 05/18/25 Procedure(s): XR shoulder RT min 2V Accession Number(s): [id number] cc: Brittanie Gambino; Marisabel Michel MD~ EXAMINATION: XR SHOULDER, RIGHT CLINICAL INFORMATION: M25.511 - Pain in right shoulder COMPARISON: None available. TECHNIQUE: Two views of the right shoulder. FINDINGS: Normal bone mineralization. No fracture, dislocation, or suspicious bone lesion. Normal alignment. The glenohumeral joint is grossly normal given suboptimal AP projection. The joint space is not well imaged. The AC joint demonstrates minimal spurring, predominantly superior surface. There is a type II acromion. No undersurface spurring. There is loss of the subacromial space, with mild superior subluxation of the humeral head upon the glenoid, suggesting rotator cuff tear. Remainder of the soft tissue and bony structures appear normal. XR/XR shoulder RT min 2V IMPRESSION: 1. No acute fracture or dislocation. 2. Loss of the subacromial space suggesting rotator cuff tearing. Electronically signed by: Bayron Aviles MD 05/18/2025 09:17 AM EDT RP Assessment & Plan Assessment & Plan (1) Right rotator cuff tendonitis: Code(s): M75.81 - Other shoulder lesions, right shoulder Category: Medical (2) Spastic monoplegia of upper extremity: Code(s): G83.20 - Monoplegia of upper limb affecting unspecified side Category: Medical (3) Hx of cerebral palsy: Code(s): Z86.69 - Personal history of other diseases of the nervous system and sense organs Category: Medical Plan Improved right shoulder pain and ouzkf-[id number] from steroid injection. I do think she still has some degree of spasticity but overall she is happy with her current state. Holding off on botulinum toxin injections. We will evaluate her every 3 months. Assessment and plan discussed with patient, and patient was agreeable. All questions were answered thoroughly. Brittanie Sullivan MD, MANJIT Board Certified, [place] [employer] and Rehabilitation (ABPMR) Board Certified, [place] [employer] Electro[employer] (ABEM) Coding Level of Care Code Est Pt Level 3 (24059) Diagnoses Right rotator cuff tendonitis M75.81 Spastic monoplegia of upper extremity G83.20 Hx of cerebral palsy Z86.69
--- OUTSIDE RECORDS SUMMARY | 2025-07-28 10:22 | XMS_ITS | Patient Health Record ---
Author Organization [facility] Address [address] [place] [address] Care Team Providers Care Emt/Paramedic Name Role Phone Anand DIOR, Marisabel Primary Care Provider George Hyman Unavailable [phone] Reason For Referral No Information Medications Medication [...] tablet Orally Once a day Active Nystatin 336571 UNIT/ML 4 ml Mouth/Throa t Twice a [...] W/U Status Risk Notes Problem Esophageal reflux (732882158) Esophageal reflux (K21.9) Active confirmed Problem 228692648 Encounter for screening for malignant neoplasm of colon (Z12.11) Active confirmed Problem 590163356 Gastroesophageal reflux disease, esophagitis presence not specified (K21.9) Active confirmed Problem 597715111 Family history o f colon cancer (Z80.0) Active confirmed Problem Benign neoplasm of stomach (25536293) Gastric polyps (K31.7) Active confirmed Problem 12650377 Oropharyngeal dysphagia (R13.12) Active confirmed Problem 097586914 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 [place] [phone] [id number] CARL JACK Self - patient is the insured Medical (General) History Medical History History ICD Code Alopecia Positive H.pylori serology in 07/2013-Rx' d with PPI and antibiotics Asthma Denies SC,DM,CVA,renal disease Kidney stones-ESWL Neg colonoscopy in 2004, [...]
--- OUTSIDE RECORDS SUMMARY | 2025-07-28 10:23 | XMS_ITS | Patient Health Record ---
Author Organization [facility] Address [address] [place] [address] Care Team Providers Care Furniture Upholsterer Apprentice Name Role Phone Marisabel Michel Primary Care Provider Yoni Glover Unavailable [phone] Gilbert Matson Unavailable [phone] Halle Bustillo Unavailable [phone] Allergies Allergen (clinical drug ingredient) Drug/Non Drug Allergy documented on EMR Reaction Allergy Type Onset Date Status sulfamethoxazole / trimethoprim Bactrim Unknown Drug Allergy Active budesonide / formoterol Symbicort Unknown Drug Allergy Active Results Component Value Reference Range Notes HEMOGLOBIN A1C (GLYCOHEMOGLO BIN) Reviewed date:10/07/2024 11:30:24 AM Interpretation: Performing Lab: Notes/Report: TOTAL HEMOGLOBIN (HGBA1C) 6.1 HEMOGLOBIN A1C (GLYCOHEMOGLO BIN) Reviewed date:05/08/2025 01:31:26 PM Interpretation: Performing Lab: Notes/Report: HEMOGLOBIN A1C % (HH) 6.3 Reason For Referral No Information Medications Medication SIG (Take, Route, Frequency, Duration) Notes Start Date End Date Status Ipratropium-Albuterol Active Flovent HFA Not-Taki ng Mupirocin 2 % 1 application Externally Twice a day Active Ipratropium [place] Active Prednisone Not-Takin g Systane Active Jock Itch 1 % 1 application to affected area Externally Twice a day Active Vitamin E Active Ketotifen Fumarate A ctive Meloxicam 15 MG 1 tablet Orally Once a day Not-Taking Fluconazole 150 MG 1 tablet Orally Once a day Not-Taking Ibuprofen Active Spiriva Respimat Not -Taking Lasix 40 MG 1 tablet Orally Once a day; Duration: 30 days Active ProAir HFA as needed Active [facility] Ear Wax Removal System Active Alendronate Sodium 70 MG 1 tablet 30 minutes before the first food, beverage or medicine of the day with plain water Orally; Duration: 30 day(s) Active Ammonium Lactate 12 % 1 application Externally Twice a day Active Montelukast Sodium A ctive Breo Ellipta 200-25 MCG/INH 1 puff Inhalation Once a day Active Naproxen Active Bismuth Active Ondansetron HCl Acti ve Lisinopril 5 MG 1 tablet Orally Once a day; Duration: 30 day(s) Active PriLOSEC OTC Active Meclizine HCl 12.5 MG 2 tablets as neede d Orally Once a day; Duration: 30 day(s) Active SUMAtriptan Succinate Active Calcium 600 + D 600-200 MG-UNIT Orally Active [facility] Jock Itch Active Cetirizine HCl twice a day Act shirin Alclometasone Dipropionate Active Cetaphil Active Gabapentin 100 MG Orally Once a day Active Proctofoam as needed Active Saline Nasal [place] as needed A ctive Gas Relief Active hydrOXYzine HCl Acti ve Clotrimazole as needed Active Loratadine Allergy Relief Active Cyproheptadine as needed Activ e Vitamin C 500 MG Orally Act shirin Docusate Sodium 100 MG 1 capsule as need ed Orally Once a day Active Clotrimazole Active Fluticasone Furoate Active Diclofenac Sodium 1 % USE DIRECTED 2 TIMES A DAY; Duration: 50 Active Immunizations Vaccine Route Administration Date Status Comme nts Influenza Unknown 07/24/2023 Administered Influenza Unknown 07/25/2024 Administered COVID-19 Moderna Vaccine Unknown 10/30/2021 Administered #1 01/10/2021 #2 02/07/21 Social History Tobacco Use: Social History Observation [...] Problem Status W/U Status Risk Notes Problem Bilateral atherosclerosis of arteries of lower limbs (disorder) (5317751423333475 7) Atherosclerosis of lumbee artery of both lower extremities, with unspecified presence of clinical manifestation (I70.203) Active confirmed Q7(A), Q8(2B), Q9(1B,2C) Problem Ulcer of toe of left foot (disorder) (5511855778738011 2) Skin ulcer of toe of left foot, limited to breakdown of skin (L97.521) Active confirmed Response to treatment Nonapplicable Vital Signs Heart Rate 71 /min 05/08/2025 Blood pressure diastolic 94 mm Hg 05/08/2025 Height 5ft in 05/08/2025 Blood pressure systolic 131 mm Hg 05/08/2025 Weight 178 lbs 05/08/2025 BMI 34.76 kg/m2 05/08/2025 Procedures Procedure Date Ordered Date Performed Result Body Sit e 53906-ILTZAKG NAIL, 6 OR MORE 10/07/2024 N/A 12715-ESKZ SKIN LESIONS, 2 TO 4 10/07/2024 N/A 65711-TWXVIEC NAIL, 6 OR MORE 01/30/2025 N/A 59912- Debride <25 sq cm 01/30/2025 N/A 44933-SZIC SKIN LESIONS, 2 TO 4 01/30/2025 N/A 09584-WEUVQNC NAIL, 6 OR MORE 05/08/2025 N/A 30646-DGZC SKIN LESIONS, 2 TO 4 05/08/2025 N/A Encounters Encounter [facility] Date [facility] [address] [facility] Gilbert Matson Tinea unguium B35.1 ; Pain in right toe(s) M79.674 ; Pain in left toe(s) M79.675 ; Skin disease L98.9 ; Type 2 diabetes mellitus with diabetic polyneuropathy E11.42 ; Ingrowing nail L60.0 and Cellulitis of right lower extremity L03.115 [facility] [address] 08/26/2024 Gilbert Matson Tinea unguium B35.1 ; Pain in right toe(s) M79.674 ; Pain in left toe(s) M79.675 ; Skin disease L98.9 ; Type 2 diabetes mellitus with diabetic polyneuropathy E11.42 and Cellulitis of toe of left foot L03.[address] [address] 10/07/2024 Halle Bustillo Type 2 diabetes mellitus with diabetic polyneuropathy E11.42 and Tinea unguium B35.[address] [address] 01/30/2025 Yoni Bhatt Type 2 diabetes mellitus with diabetic peripheral angiopathy without gangrene E11.51 ; Tinea unguium B35.1 ; Pain in right toe(s) M79.674 ; Pain in left toe(s) M79.675 ; Other hammer toe(s) (acquired), left foot M20.42 ; Other hammer toe(s) (acquired), right foot M20.41 and Skin ulcer of toe of left foot, limited to breakdown of skin L97.[address] [address] 05/08/2025 Yoni Bhatt Atherosclerosis of lumbee artery of both lower extremities, with unspecified presence of clinical manifestation I70.203 ; Tinea unguium B35.1 ; Pain in right toe(s) M79.674 ; Pain in left toe(s) M79.675 and Skin ulcer of toe of left foot, limited to breakdown of skin L97.[address] [address] 06/07/2025 Yoni Bhatt [address] [address] 04/20/2025 Yoni Bhatt [address] [address] 05/19/2025 Yoni Bhatt Assessments Encounter Date Diagnosis (ICD Code) Assessment Notes Treatment Notes Treatment Clinical Notes Section Notes 07/29/2024 Tinea unguium (ICD-10 - B35.1) 07/29/2024 Pain in right toe(s) (ICD-10 - M79.674) 08/26/2024 Tinea unguium (ICD-10 - B35.1) 08/26/2024 Pain in right toe(s) (ICD-10 - M79.674) 10/07/2024 Type 2 diabetes mellitus with diabetic polyneuropathy (ICD-10 - E11.42) 10/07/2024 Tinea unguium (ICD-10 - B35.1) 01/30/2025 Type 2 diabetes mellitus with diabetic peripheral angiopathy without gangrene (ICD-10 - E11.51) Q7(A), Q8(2B), Q9(1B,2C) 05/08/2025 Tinea unguium (ICD-10 - B35.1) 05/08/2025 Atherosclerosis of lumbee artery of both lower extremities, with unspecified presence of clinical manifestation (ICD-10 - I70.203) Q7(A), Q8(2B), Q9(1B,2C) 05/08/2025 Pain in right toe(s) (ICD-10 - M79.674) 01/30/2025 Tinea unguium (ICD-10 - B35.1) 08/26/2024 Pain in left toe(s) (ICD-10 - M79.675) 07/29/2024 Pain in left toe(s) (ICD-10 - M79.675) 07/29/2024 Skin disease (ICD-10 - L98.9) 08/26/2024 Skin disease (ICD-10 - L98.9) 05/08/2025 Pain in left toe(s) (ICD-10 - M79.675) 01/30/2025 Pain in right toe(s) (ICD-10 - M79.674) 05/08/2025 Skin ulcer of toe of left foot, limited to breakdown of skin (ICD-10 - L97.521) 01/30/2025 Pain in left toe(s) (ICD-10 - M79.675) 07/29/2024 Type 2 diabetes mellitus with diabetic polyneuropathy (ICD-10 - E11.42) 08/26/2024 Type 2 diabetes mellitus with diabetic polyneuropathy (ICD-10 - E11.42) 08/26/2024 Cellulitis of toe of left foot [...] of right lower extremity (ICD-10 - L03.115) 01/30/2025 Other Plan Of Treatment Pending Test Test Name Order Date 38563-YLZHIAN NAIL, 6 OR MORE 06/02/2017 99249-USZPTCN NAIL, 6 OR MORE 09/01/2017 49953-NRGSUNH NAIL, 6 OR MORE 12/22/2017 27635-ALFJHGG NAIL, 6 OR MORE 03/23/2018 54163-DOXNTWZ NAIL, 6 OR MORE 06/01/2018 31375-LJITKBF NAIL, 6 OR MORE 10/29/2018 36728-NPJFGMI NAIL, 6 OR MORE 08/06/2018 24247-YEGRQXD NAIL, 6 OR MORE 10/07/2024 55102-HZOSIHF NAIL, 6 OR MORE 01/30/2025 41943-SQCOKNU NAIL, 6 OR MORE 05/08/2025 39314-Pgnvzyxm Plate 08/06/2018 01729-Pwzkqydh Plate 12/22/2017 02010- Debride <25 sq cm 06/22/2018 73504- Debride <25 sq cm 05/03/2024 51091- Debride <25 sq cm 01/30/2025 71663-JENXABL SKIN/TISSUE 02/04/2022 49823-XFJHBRK SKIN/TISSUE 05/12/2022 82538 I&D ABSCESS- SIMPLE,SINGLE 019 10419 I&D ABSCESS- SIMPLE,SINGLE 020 43283- I&D ABSCESS-COMPLICATED,MULTI 08/2018 98301- I&D ABSCESS-COMPLICATED,MULTI 67098-KXWO SKIN LESIONS, 2 TO 4 06/01/20 18 21145-PJUV SKIN LESIONS, 2 TO 4 08/06/20 18 72498-DSYO SKIN LESIONS, 2 TO 4 06/02/20 17 02097-AVOU SKIN LESIONS, 2 TO 4 03/23/20 18 76456-DCLO SKIN LESIONS, 2 TO 4 12/22/19 18 11234-YSXM SKIN LESIONS, 2 TO 4 09/01/20 17 82628-ZERL SKIN LESIONS, 2 TO 4 10/26/20 20 68600-GUMJ SKIN LESIONS, 2 TO 4 01/30/20 21 84771-BHGJ SKIN LESIONS, 2 TO 4 04/30/20 21 19942-HRTD SKIN LESIONS, 2 TO 4 07/30/20 21 23355-PIAU SKIN LESIONS, 2 TO 4 10/25/20 21 83103-PGMO SKIN LESIONS, 2 TO 4 12/27/19 58861-AUBG SKIN LESIONS, 2 TO 4 02/05/20 90189-LJMU SKIN LESIONS, 2 TO 4 01/24/20 20 61645-OPUG SKIN LESIONS, 2 TO 4 04/24/20 20 00379-ZLNY SKIN LESIONS, 2 TO 4 07/24/20 20 55168-KLGS SKIN LESIONS, 2 TO 4 02/09/20 19 24155-USYL SKIN LESIONS, 2 TO 4 05/10/20 19 55037-PNKJ SKIN LESIONS, 2 TO 4 07/26/20 19 40495-JQRG SKIN LESIONS, 2 TO 4 11/08/20 19 03039-SCXA SKIN LESIONS, 2 TO 4 07/01/20 13425-RLEM SKIN LESIONS, 2 TO 4 10/29/20 18 93904-ZDRK SKIN LESIONS, 2 TO 4 01/31/20 51970-BFUN SKIN LESIONS, 2 TO 4 10/07/20 24 37833-QOPI SKIN LESIONS, 2 TO 4 05/08/20 Next Appt Details Provider Name:Yoni V Nova , 08/02/2025 03:15:00 PM, [address], [address], Provider Name:Yoni Bhatt , 11/01/2025 03:15:00 PM, [address], [address], Insurance Providers Payer Name Payer Address Payer Phone Subscriber Number Group Number Insured Name Patient Relationship to Insured Coverage Start Date Coverage End Date [facility] [employer] Claims [address] [place] [id number] Radha Vera Self - patient is the insured 7 Medical (General) History Medical History History ICD Code Arthritis asthma Cerebral palsy Chicken pox Epilepsy Knee Pain Kidney stones Migraines Paralysis Poor circulation Reflux Surgical History Surgery Date(Month/Year) appendectomy 2008 hand/wrist 1982 leg surgery 1980 Hospitalization History Reason Date(Month/Year) [facility] [place]- leg infection 07/19-07/25 Urgent Care- Pain in ankle- negetive ult rasound and x-ray 04/2019 ER in [place] 02/2018
--- OUTSIDE RECORDS SUMMARY | 2025-07-28 10:23 | XMS_ITS | Clinical Summary ---
Author Organization [facility] Address [address] [place] [address] Phone Care Team Providers Care Stringed Instrument Repairer Name Role Phone Marisabel Michel MD Primary Care Provider [phone] Social History Tobacco Use Types Packs/Day Years [...] MEDICARE REPLACEMENT MEDICARE PART A & B [facility] MEDICARE REPLACEMENT MEDICARE PART A & [place] [address] [address] ONE CARE MEDICARE REPLACEMENT MEDICARE PART A & B ONE [employer] MEDICARE REPLACEMENT MEDICARE PART A & B Member Subscriber Plan / Payer ( fective 2016-Present) Name:Gibson Veramen Member ID:[id number] Relation to Subscriber:Self Name:Gibson Veramen Subscriber ID:[id number] Payer ID:[id number] Group ID:Not on file Type:Medicare [facility] [address] CARE MEDICARE REPLACEMENT MEDICARE PART A & B [facility] ONE CARE MEDICARE REPLACEMENT MEDICARE PART A & B Care Teams Stringed Instrument Repairer Relationship Specialty Start Date End Date Marisabel Michel MD [address] [place] [id number] PCP - General Family Medicine 10/06/24 Additional Source Comments The information contained in this document represents components of the legal health record. It is not the complete legal health record.[facility]
== END 2025-07-28 10:51 | disposition home or self-care (01) ==
LOC: HO.HOS 09:39
PROVIDERS: PCP Family Medicine; Visit Provider Physical Medicine & Rehabilitation
DX: M75.81 Other shoulder lesions, right shoulder (principal); G83.20 Monoplegia of upper limb affecting unspecified side; Z86.69 Personal history of other diseases of the nervous system and sense organs
CPT/HCPCS: 99213

== ENCOUNTER → 2025-07-28 09:38 | Outpatient (BNVA) | payer OTHER, SELFPAY | PROVIDERS: PCP Family Medicine; Visit Provider Physical Medicine & Rehabilitation | DX: M75.81 Other shoulder lesions, right shoulder (principal); G83.21 Monoplegia of upper limb affecting right dominant side; Z86.69 Personal history of other diseases of the nervous system and sense organs | CPT/HCPCS: 99212 ==

== ENCOUNTER 2025-08-28 15:21 | Outpatient (REF) | payer OTHER, SELFPAY | END 2025-08-28 15:22 | disposition home or self-care (01) | LOC: HO.LAB 15:21 | PROVIDERS: Absent Provider Family Medicine; PCP Family Medicine; Visit Provider Internal Medicine Pulmonary Disease | DX: J45.909 Unspecified asthma, uncomplicated (principal); G47.33 Obstructive sleep apnea (adult) (pediatric); R06.01 Orthopnea; R73.03 Prediabetes; Z91.09 Other allergy status, other than to drugs and biological substances; Z79.899 Other long term (current) drug therapy | CPT/HCPCS: 36415; 83036; 99212 ==

== ENCOUNTER 2025-08-28 15:21 | Outpatient (AMB) | payer OTHER, SELFPAY ==
--- OUTSIDE RECORDS SUMMARY | 2025-03-03 05:30 | XMS_ITS ---
Author Organization [facility] Address [address] [place] [address] Care Team Providers Care Records Analysis Manager Name Role Phone Marisabel Michel Primary Care Provider UnavailYoni Deng Unavailable [phone] Halle Bustillo Unavailable [phone] REASON FOR VISIT Seen Sooner Encounters Encounter Location Date Provider Diagnosis [address] [address] 03/03/2025 Halle Bustillo Plan Of Treatment Next Appt Details Provider Name:Yoni Bhatt , 11/01/2025 03:15:00 PM, [address] [place] [address], [phone], Progress Notes * Radha JACKDOB: [birth year] (54 yo F)Acc No.[id number]:03/03/2025 Progress Note Patient: Radha DIOP Provider: Sherwin Bustillo DPM :1970 A ge:54 Y S ex:Female Date:03/03/2025 Address:[address] [place] [address] Pcp:Marisabel Michel Subjective: * Chief Complaints: * [...] DPM Date: 0 03/03/2025 Generated for Deny May on: 1 05:43 PM EDT
--- OUTSIDE RECORDS SUMMARY | 2025-03-24 06:00 | XMS_ITS ---
Author Organization [facility] Address [address] [place] [address] Care Team Providers Care Seating Captain Name Role Phone Marisabel Michel Primary Care Provider UnavailYoni Deng Unavailable [phone] Halle Bustillo Unavailable [phone] Encounters Encounter Location Date Provider Diagnosis [facility] [address] 03/24/2025 Halle Bustillo Plan Of Treatment Next Appt Details Provider Name:Yoni Bhatt , 11/01/2025 03:15:00 PM, [address] [place] [address], [place], [address], Progress Notes * Radha JACKDOB: 1 (54 yo F)Acc No.[id number]:03/24/2025 Progress Note Patient: Gaurav DE ANDA Radha Provider: Sherwin Bustillo DPM :1970 A ge:54 Y S ex:Female Date:03/24/2025 Address:[address] [place] [address] Pcp:Marisabel Michel Subjective: * Chief Complaints: * [...] 0 03/24/2025 Generated for Deny May on: 05:44 PM EDT
--- NOTE | 2025-08-28 15:22 | MHC.OFFVIS ---
Vital Signs 08/28/25 15:23 Height 5 ft 3 in BP 118/84 Blood Pressure Location Lt brachial Position Sitting Pulse 99 Pulse Source Pulse Oximeter Pulse Oximetry (%) 95 Oxygen Delivery Method Room Air Comment wheelchair Intake Visit Reasons: Asthma/FARTUN Allergies budesonide (From SYMBICORT) Allergy (Intermediate, Verified 08/28/25 15:30) TREMOR formoterol (From SYMBICORT) Allergy (Intermediate, Verified 08/28/25 15:30) TREMOR sulfamethoxazole (From BACTRIM) Allergy (Intermediate, Verified 08/28/25 15:30) RASH trimethoprim (From BACTRIM) Allergy (Intermediate, Verified 08/28/25 15:30) RASH Sulfa (Sulfonamide Antibiotics) Allergy (Unknown, Verified 08/28/25 15:30) Unknown Symbicort Allergy (Unknown, Uncoded 05/18/25 08:33) Unknown HPI HPI Asthma/FARTUN: Details: 54-year-old lady, nonsmoker, now seen for asthma, FARTUN, and environmental allergies. Patient has been using Breo and albuterol MDI with good control of her asthma symptoms. She is also on Singulair for the allergic component. She continues on her CPAP with reasonable control of underlying sleep apnea symptoms. Patient continues on diuretic regimen after the last visit with significantly improved control for underlying orthopnea lower extremity edema. She denies recent exacerbations. [facility] Medical History Wheelchair dependence Edema of both lower extremities Hx of cerebral palsy GERD (gastroesophageal reflux disease) Asthma Alopecia Surgical History History of surgery Hx of appendectomy History of esophagogastroduodenoscopy (EGD) Hx of colonoscopy Hx of lithotripsy Social History Household Members: Family Housing: House Alcohol intake: never Patient Tobacco Use Status: Never used Tobacco service: No Current occupational status: disabled Review of Systems Const Denies daytime sleepiness, Denies excessive sweating, Denies fatigue, Denies fever(s), Denies lethargy, Denies malaise, Denies night sweats, Denies snoring and Denies weight loss Eyes Denies blurry vision and Denies itchy eyes ENT Denies nasal congestion, Denies post nasal drip, Denies sinus pain, Denies sinus pressure and Denies other ( Thrush) Card Denies chest pain, Denies pedal edema, Denies dyspnea, Denies orthopnea and Denies paroxysmal nocturnal dyspnea Resp Denies cough, Denies hemoptysis, Denies excessive phlegm production, Denies dyspnea, Denies snoring and Denies wheezing GI Denies abdominal pain and Denies heartburn Musc Denies myalgias, Denies arthralgias and Denies joint swelling Skin/Breast Denies rash Neuro Denies memory loss and Denies seizure-like activity Psych Denies abnormal sleep pattern, Denies anxiety and Denies memory loss Endo Denies excessive sweating, Denies fatigue and Denies heat intolerance Craig/Lymph Denies easy bruising Aller/Immun Denies itchy eyes, Denies seasonal rhinorrhea and Denies wheezing Physical Exam Vital Signs: Last Vital Signs Pulse 99 08/28/25 15:23 BP 118/84 08/28/25 15:23 Pulse Ox 95 08/28/25 15:23 Oxygen Delivery Method Room Air 08/28/25 15:23 Const General: no acute distress and alert Nutritional Appearance: not obese Orientation/consciousness: Other orientation findings ( oriented) HEENT Head: Yes atraumatic Eyes General: appearance normal, both eyes and all related structures Sclerae: sclerae normal EOM: EOMs intact bilaterally Neck Neck: Yes supple Lymphatic: no lymphadenopathy noted Resp Effort & Inspection: normal respiratory effort and no use of accessory muscles Auscultation: clear to auscultation bilaterally Cardio Rate: regular rate Rhythm: regular rhythm Heart sounds: no gallops, no murmurs and no rubs Skin General skin exam: other ( warm) Extrem General: No clubbing, No cyanosis and No edema Assessment & Plan Assessment & Plan (1) Asthma: Code(s): J45.909 - Unspecified asthma, uncomplicated Category: Medical Plan: Controlled on current regimen of Breo and albuterol MDI. Continue current regimen. (2) FARTUN (obstructive sleep apnea): Comment: Moderately severe FARTUN. The total AHI was 24 with oxygen sukh was 72%. Code(s): G47.33 - Obstructive sleep apnea (adult) (pediatric) Category: Medical Plan: Well controlled on current CPAP therapy. Continue CPAP therapy. (3) Environmental allergies: Code(s): Z91.09 - Other allergy status, other than to drugs and biological substances Category: Medical Plan: Controlled on nasal ipratropium and Flonase. Continue current regimen. (4) Orthopnea: Code(s): R06.01 - Orthopnea Category: Medical Plan: Well controlled on current diuretic regimen of Lasix 40 mg daily. Continue current regimen. Coding Level of Care Code Est Pt Level 4 (39586) Complex EM visit Add On G2211 Diagnoses Asthma J45.909 FARTUN (obstructive sleep apnea) G47.33 Environmental allergies Z91.09 Orthopnea R06.01
[2025-08-28 15:23] VITALS: BP 118/84; PULSE 99; O2SAT 95
--- OUTSIDE RECORDS SUMMARY | 2025-08-28 17:43 | XMS_ITS | Encounter Summary ---
Author Organization [employer] Address [address] [facility] 7t [place] [address] Care Team Providers Care Acct Exec Name Role Phone Marisabel Michel MD Primary Care Provider [phone] Reason for Visit * Reason Comments Med Refill Encounter Details Date Type Department Care Team ([facility] st Contact Info) Description 08/26/2025 Refill [facility] MEDICINE [address] [place], [place] [phone] Marisabel Michel MD 230 [place], [place] [phone] Social History Tobacco Use Types Packs/Day Years [...] Care Team (Late st Contact Info) Description 09/05/2025 2:15 PM EDT Office Visit [facility] MEDICINE [address] [place] [address] Marisabel Mihcel MD [address] [place] [address] documented as of this encounter Visit Diagnoses Not on filedocumented in this encounter Additional Health Concerns Assessment Noted Time PHQ-9 Depression Total Score: 5 06/05/20 25 3:36 PM EDT documented as of this encounter Care Teams Acct Exec Relationship Specialty Start Date End Date Marisabel Michel MD [address] [place] [address] [id number] PCP - General Family Medicine 09/04/11 documented as of this encounter
--- OUTSIDE RECORDS SUMMARY | 2025-08-28 17:43 | XMS_ITS | Encounter Summary ---
Author Organization [employer] Address [address] [facility] 7t [place] [address] Care Team Providers Care Core Drilling Supervisor Name Role Phone Marisabel Michel MD Primary Care Provider [phone] Encounter Details Date Type Department Care Team ([facility] st Contact Info) Description 09/29/2024 Orders Only [facility] MEDICINE 230 [place], [place] [phone] Marisabel Michel MD 230 [place] [address] Social History Tobacco Use Types Packs/Day Years [...] Description 09/05/2025 2:15 PM EDT Office Visit [facility] MEDICINE 230 [place] [address] Marisabel Michel MD [address] [place] [address] documented as of this encounter Visit Diagnoses Not on filedocumented in this encounter Additional Health Concerns Assessment Noted Time PHQ-9 Depression Total Score: 0 03/29/20 24 3:23 PM EDT documented as of this encounter Care Teams Core Drilling Supervisor Relationship Specialty Start Date End Date Marisabel Michel MD [address] [place] [address] PCP - General Family Medicine 09/04/11 documented as of this encounter
--- OUTSIDE RECORDS SUMMARY | 2025-08-28 17:43 | XMS_ITS | Encounter Summary ---
Author Organization [employer] Address [address] [facility] 7t [place] [address] Care Team Providers Care Harvest Crew Supervisor Name Role Phone Marisabel Michel MD Primary Care Provider [phone] Reason for Visit * Reason Comments Med Refill Encounter Details Date Type Department Care Team ([facility] st Contact Info) Description 08/26/2025 Refill [facility] MEDICINE 230 [place], [place] [phone] Xiao Powers MD 230 [place], [place] [phone] Social History Tobacco Use Types Packs/Day Years [...] Description 09/05/2025 2:15 PM EDT Office Visit [facility] MEDICINE [address] [place] [address] Marisabel Michel MD [address] [place] [address] documented as of this encounter Visit Diagnoses Not on filedocumented in this encounter Additional Health Concerns Assessment Noted Time PHQ-9 Depression Total Score: 5 06/05/20 25 3:36 PM EDT documented as of this encounter Care Teams Harvest Crew Supervisor Relationship Specialty Start Date End Date Marisabel Michel MD [address] [place] [id number] PCP - General Family Medicine 09/04/11 documented as of this encounter
--- OUTSIDE RECORDS SUMMARY | 2025-08-28 17:43 | XMS_ITS | Encounter Summary ---
Author Organization [employer] Address [address] [facility] 7t [place] [address] Care Team Providers Care Level Vial Marker Name Role Phone Marisabel Michel MD Primary Care Provider [phone] Reason for Visit * Reason Comments Med Refill Encounter Details Date Type Department Care Team ([facility] st Contact Info) Description 08/23/2025 Refill [facility] MEDICINE 230 [place] [address] Marlyn Oliva MD 230 [place] [address] Social History Tobacco Use Types Packs/Day Years [...] Description 09/05/2025 2:15 PM EDT Office Visit [facility] MEDICINE [address] [place] [address] Marisabel Michel MD [address] [place] [address] documented as of this encounter Visit Diagnoses Not on filedocumented in this encounter Additional Health Concerns Assessment Noted Time PHQ-9 Depression Total Score: 5 06/05/20 25 3:36 PM EDT documented as of this encounter Care Teams Level Vial Marker Relationship Specialty Start Date End Date Marisabel Michel MD [address] [place] [id number] PCP - General Family Medicine 09/04/11 documented as of this encounter
--- OUTSIDE RECORDS SUMMARY | 2025-08-28 17:43 | XMS_ITS | Encounter Summary ---
Author Organization [employer] Address [address] [facility] 7t [place] [address] Care Team Providers Care Office Clerk Assistant Name Role Phone Marisabel Michel MD Primary Care Provider [phone] Reason for Referral * Consultation (Urgent) - Closed Specialty Diagnoses / Procedures Referred By Contac t Referred To Contact Diagnoses Cellulitis of right lower leg Pain in right lower leg Marisabel Michel MD [address] [place] [address] Phone: tel: fax: Ester Palm MD [address] [facility] [address] [place] [address] Phone: tel: Referral ID Status Reason Start Date Expiration Date V isits Requested Visits Authorized [id number] Closed Specialty Services Required 08/29/2024 08/29/2025 1 1 Encounter Details Date Type Department Care Team (Late st Contact Info) Description 08/29/2024 Orders Only [facility] MEDICINE 230 [place], [place] [phone] Marisabel Michel MD [address] [place], [place] [phone] Cellulitis of right lower leg (Primary Dx); [...] Description 09/05/2025 2:15 PM EDT Office Visit [facility] MEDICINE 230 [place] [address] Marisabel Michel MD [address] [place] [address] Scheduled Referrals Name Type Priority Associated Diagnoses [...] documented as of this encounter Care Teams Office Clerk Assistant Relationship Specialty Start Date End Date Marisabel Michel MD [address] [place] [address] PCP - General Family Medicine 09/04/11 documented as of this encounter
--- OUTSIDE RECORDS SUMMARY | 2025-08-28 17:43 | XMS_ITS | Patient Health Record ---
Author Organization [facility] Address [address] [place] [address] Care Team Providers Care Industrial Technology Education Teacher Name Role Phone Anand DIOR, Marisabel Primary Care Provider George Hyman Unavailable [phone] Reason For Referral No Information Medications Medication [...] tablet Orally Once a day Active Nystatin 969545 UNIT/ML 4 ml Mouth/Throa t Twice a [...] W/U Status Risk Notes Problem Esophageal reflux (046770118) Esophageal reflux (K21.9) Active confirmed Problem 045308949 Encounter for screening for malignant neoplasm of colon (Z12.11) Active confirmed Problem 923997789 Gastroesophageal reflux disease, esophagitis presence not specified (K21.9) Active confirmed Problem 926063562 Family history o f colon cancer (Z80.0) Active confirmed Problem Benign neoplasm of stomach (39294959) Gastric polyps (K31.7) Active confirmed Problem 60510931 Oropharyngeal dysphagia (R13.12) Active confirmed Problem 451693099 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 Problem Diverticulosis of sigmoid colon (404510466) Diverticulosis of sigmoid colon (K57.30) Active confirmed [...] Coverage Start Date Coverage End Date [facility] [address] [place] [address] [id number] CARL JACK Self - patient is the insured MEDICAID OF [place] [address] [place] [phone] [id number] CARL JACK Self - patient is the insured Medical (General) History Medical History History ICD Code Alopecia Positive H.pylori serology in 07/2013-Rx' d with PPI and antibiotics Asthma Denies CT,DM,CVA,renal disease Kidney stones-[facility] Neg colonoscopy in 2004, [...]
--- OUTSIDE RECORDS SUMMARY | 2025-08-28 17:43 | XMS_ITS | Encounter Summary ---
Author Organization [employer] Address [address] [facility] 7 [place] [address] Care Team Providers Care Hardboard Coating Machine Operator Name Role Phone Marisabel Michel MD Primary Care Provider [phone] Encounter Details Date Type Department Care Team ([facility] st Contact Info) Description 10/04/2024 Orders Only [facility] MEDICINE 230 [place] [address] Lexie Lopez, PharmD 230 [place] [address] Social History Tobacco Use Types Packs/Day Years [...] Description 09/05/2025 2:15 PM EDT Office Visit [facility] MEDICINE 230 [place] [address] Marisabel Michel MD [address] [place] [address] documented as of this encounter Visit Diagnoses Not on filedocumented in this encounter Additional Health Concerns Assessment Noted Time PHQ-9 Depression Total Score: 0 03/29/20 24 3:23 PM EDT documented as of this encounter Care Teams Hardboard Coating Machine Operator Relationship Specialty Start Date End Date Marisabel Michel MD 230 [place] [address] PCP - General Family Medicine 09/04/11 documented as of this encounter
--- OUTSIDE RECORDS SUMMARY | 2025-08-28 17:43 | XMS_ITS | Clinical Summary ---
Author Organization [facility] Address [address] [place] [address] Phone Care Team Providers Care Support Representative Name Role Phone Marisabel Michel MD Primary Care Provider [phone] Social History Tobacco Use Types Packs/Day Years [...] 2) 2020 Adult Td,Tdap Booster 07/09/2021 07/09/2011 MAMMOGRAM 02/13/2025 02/13/2023, 01/04/2019 INFLUENZA VACCINE (#1) 2025 COVID-19 VACCINE ( - 2024-2 6 season) 2025 RSV VACCINE (1 - 1-dose 75+ series) 2045 HEPATITIS A VACCINES Aged Out No long [...] topic Medical Devices Not on file Insurance [facility] ONE CARE MEDICARE REPLACEMENT MEDICARE PART A & [place] [address] [address] ONE CARE MEDICARE REPLACEMENT MEDICARE PART A & B MEDICARE PART A & B ONE CARE MEDICARE REPLACEMENT Member Subscriber Plan / Payer ( fective 2016-Present) Name:Chuy Radha Relation to Subscriber:Self Name:VeraRadha singh Payer ID:[id number] (NAIC) Group ID:[id number] Type:Medicare Address: [address] [facility] [place] [facility] MEDICARE PART A & B ONE CARE MEDICARE REPLACEMENT MEDICARE PART A & B [facility] ONE CARE MEDICARE REPLACEMENT [place] [id number] MEDICARE PART A & B Care Teams Support Representative Relationship Specialty Start Date End Date Marisabel Michel MD 230 [place] [address] PCP - General Family Medicine 10/06/24 Additional Source Comments The information contained in this document represents components of the legal health record. It is not the complete legal health record.[facility]
--- OUTSIDE RECORDS SUMMARY | 2025-08-28 17:43 | XMS_ITS | Encounter Summary ---
Author Organization [employer] Address [address] [facility] 7t [place] [address] Care Team Providers Care Hot Frame Tender Name Role Phone Marisabel Michel MD Primary Care Provider [phone] Reason for Visit * Reason Comments Med Refill Encounter Details Date Type Department Care Team ([facility] st Contact Info) Description 11/06/2023 Refill [facility] MEDICINE 230 [place], [place] [phone] Vicky Sage ANP 230 [place], [place] [phone] Social History Tobacco Use Types Packs/Day Years [...] Description 09/05/2025 2:15 PM EDT Office Visit [facility] MEDICINE [address] [place] [address] Marisabel Michel MD [address] [place] [address] documented as of this encounter Visit Diagnoses Not on filedocumented in this encounter Additional Health Concerns Assessment Noted Time PHQ-9 Depression Total Score: 2 02/25/20 23 1:12 PM EDT documented as of this encounter Care Teams Hot Frame Tender Relationship Specialty Start Date End Date Marisabel Michel MD [address] [place] [address] PCP - General Family Medicine 09/04/11 documented as of this encounter
--- OUTSIDE RECORDS SUMMARY | 2025-08-28 17:43 | XMS_ITS | Encounter Summary ---
Author Organization [employer] Address [address] [facility] 7t [place] [address] Care Team Providers Care Press Operator Heavy Duty Name Role Phone Marisabel Michel MD Primary Care Provider [phone] Reason for Visit * Reason Comments Med Refill Encounter Details Date Type Department Care Team ([facility] st Contact Info) Description 08/26/2025 Refill [facility] MEDICINE 230 [place], [place] [phone] Clair Lombardi MD 230 [place], [place] [phone] Social History Tobacco Use Types Packs/Day Years [...] Description 09/05/2025 2:15 PM EDT Office Visit [facility] MEDICINE [address] [place] [address] Marisabel Michel MD [address] [place] [address] documented as of this encounter Visit Diagnoses Not on filedocumented in this encounter Additional Health Concerns Assessment Noted Time PHQ-9 Depression Total Score: 5 06/05/20 25 3:36 PM EDT documented as of this encounter Care Teams Press Operator Heavy Duty Relationship Specialty Start Date End Date Marisabel Michel MD [address] [place] [address] [phone] PCP - General Family Medicine 09/04/11 documented as of this encounter
--- OUTSIDE RECORDS SUMMARY | 2025-08-28 17:43 | XMS_ITS | Encounter Summary ---
Author Organization [employer] Address [address] [facility] [address] 7t [place] [address] Care Team Providers Care Healthcare Administrative Assistant Name Role Phone Marisabel Michel MD Primary Care Provider [phone] Encounter Details Date Type Department Care Team ([facility] st Contact Info) Description 03/18/2024 Orders Only [facility] MEDICINE [address] [place], [place] [phone] Marisabel Michel MD [address] [place], [place] [phone] Social History Tobacco Use Types Packs/Day Years [...] Description 09/05/2025 2:15 PM EDT Office Visit [facility] MEDICINE [address] [place] [address] Marisabel Michel MD [address] [place], [place] [phone] documented as of this encounter Procedures Procedure Name Priority Date/Time Associated Diagnosis Comments BI MAMMOGRAM SCREENING TOMOSYNTHESIS BILATERAL Routine 03/21/2024 1:10 PM EDT documented in this encounter Results * BI Mammogram Screening Tomosynthesis Bilateral (03/21/2024 1:10 PM EDT) Anatomical Region Laterality Modality Breast Bilateral Mammography 03/21/2024 1:10 PM EDT Narrative 04/17/2024 6:32 AM EDT [facility] [address] [place] [address] Mammography Report Signed Patient: Radha Kimball MR#: [id number] : 1970 Acct:[id number] Age/Sex: 53 / F ADM Date: 03/21/24 Loc: [facility] Attending Dr: Marisabel Michel MD Ordering Physician: Marisabel Michel MD Results: 1Negative Date of Service: 03/21/24 Follow Up: 1 Year From Orig inal Mammogram Procedure(s): MM tomosynthesis screening BI Accession Number(s): [id number] cc: Marisabel Michel MD EXAMINATION: MM SCREENING [...] in OV> 04/17/24 0629 DD/ 1310 TD/TT: Shoes Salesperson: Procedure Note Donotuseinterpreter, Image - 04/17/2024 [facility] [address] [place] [address] Mammography Report Signed Patient: Radha Kimball#: [id number] : 1970Acct:[id number] Age/Sex: 53 / FADM Date: 03/21/24 Loc: [facility] Attending Dr: Marisabel Michel MD Ordering Physician: Marisabel Michel MDResults: 1Negative Date of Service: 03/21/24Follow Up: 1 Year From [facility] ina Mammogram Procedure(s): MM tomosynthesis screening BI Accession Number(s): [id number] cc: Marisabel Michel MD EXAMINATION: MM SCREENING [...] in OV> 04/17/24 0629 DD/ 1310 TD/TT: Shoes Salesperson: Marisabel Michel MD IMG BI PROCEDURES Final Result documented in this encounter Visit Diagnoses Not on filedocumented in this encounter Additional Health Concerns Assessment Noted Time PHQ-9 Depression Total Score: 2 02/25/20 23 1:12 PM EDT documented as of this encounter Care Teams Healthcare Administrative Assistant Relationship Specialty Start Date End Date Marisabel Michel MD 230 [place] [address] PCP - General Family Medicine 09/04/11 documented as of this encounter
--- OUTSIDE RECORDS SUMMARY | 2025-08-28 17:43 | XMS_ITS | Encounter Summary ---
Author Organization [employer] Address [address] [facility] 7t [place] [address] Care Team Providers Care Dust Collector Treater Name Role Phone Marisabel Michel MD Primary Care Provider [phone] Encounter Details Date Type Department Care Team ([facility] st Contact Info) Description 06/30/2024 Orders Only [facility] [address] [place], [place] [phone] Marisabel Michel MD [address] [place] [address] Prediabetes (Primary Dx); Primary hypertension; Acute right [...] Description 09/05/2025 2:15 PM EDT Office Visit [facility] [address] [place], [place] [phone] Marisabel Michel MD [address] [place], [place] [phone] documented as of this encounter Procedures Procedure [...] PM EDT) Hemoglobin A1c 6.1(H) <6.0 % [facility] Comment:Hemoglobin A1C Refer ence Range Adults: 4.8 - 6.0 % Non diabetic: < 6.0 % Goal: < 7.0 %Additional Action Suggested: > 8.0 %Note: Hemoglobin A1c results are invalid for patients with abnormal amounts of HbF. Blood transfusions may impact the HbA1c concentration in the patient sample. Estimated Average Glucose 128 mg/dL [facility] Comment:eAG = Estimated ave rage glucose which is %A1C expressed asaverage glucose, using the formula of the G0J-JuylvxqDoycsdz Glucose study (ADAG), Diabetes Care, Vol.31,#8,Jun. 2007 Blood Venous blood specimen / Unknown 08/02/2024 5:05 PM EDT 08/02/2024 5:10 PM EDT us Marisabel Michel MD LAB BLOOD ORDERABLES Final Resul t Performing Organization Address City/[facility]/ZIP Co de Phone Number [facility] [address] [place] [phone] * (ABNORMAL) TSH with Reflex to Free T4 (07/15/2024 3:24 PM EDT) TSH reflex Free T4 0.19(L) 0.32 - 4.0 uIU/mL [facility] Blood 07/15/2024 3:24 PM EDT 07/15/2024 3:26 PM EDT Marisabel Michel MD LAB BLOOD ORDERABLES Final Resul t Performing Organization Address City/[facility]/ZIP Co de Phone Number [facility] [address] [place] [phone] * (ABNORMAL) Sed Rate by Modified Westergren (07/15/2024 3:24 PM EDT) Erythrocyte Sedimentation Rate 71(H) 0 - 20 MM/HR [facility] Comment:Patients with polycy themia and many hemoglobin abnormalitiesmay have depressed sed rates whereas patients with anemiamay have elevated sed rates. Blood Venous blood specimen / Unknown 07/15/2024 3:24 PM EDT 07/15/2024 3:26 PM EDT Marisabel Michel MD LAB BLOOD ORDERABLES Final Resul t Performing Organization Address [facility] Co de Phone Number [facility] [address] [place] [phone] * (ABNORMAL) C-reactive Protein (07/15/2024 3:24 PM EDT) C Reactive Protein 18.68(H) < or = 0.50 mg/dL [facility] Blood Venous blood specimen / Unknown 07/15/2024 3:24 PM EDT 07/15/2024 3:26 PM EDT Marisabel Michel MD LAB BLOOD ORDERABLES Final Resul t Performing Organization Address [facility] Co de Phone Number [facility] [address] [place] [phone] * Uric acid (07/15/2024 3:24 PM EDT) Uric Acid 4.8 2.4 - 5.7 mg/dL [facility] Blood Venous blood specimen / Unknown 07/15/2024 3:24 PM EDT 07/15/2024 3:26 PM EDT Marisabel Michel MD LAB BLOOD ORDERABLES Final Resul t Performing Organization Address [facility] Co de Phone Number [facility] [address] [place] [phone] * (ABNORMAL) Comprehensive Metabolic Panel (07/15/2024 3:24 PM EDT) Pathologist [facility] Sodium 141 135 - 145 mmol/L [facility] Potassium 3.5 3.3 - 5.1 mmol/L [facility] Chloride 105 96 - 108 mmol/L [facility] Carbon Dioxide 20(L) 22 - 29 mmol/L [facility] Anion Gap 20 12 - 20 [facility] Urea Nitrogen (BUN) 13 9 - 16 mg/dL [facility] Creatinine, Serum 0.81 0.5 - 1.4 mg/dL [facility] Estimated Glomerular Filt Rate >60 [facility] Comment:NOTE: For -Am erican individuals, multiply the result by 1.210.Chronic Kidney Disease: Estimated GFR < 60 mL/min/1.49k6Musdgh Kidney Disease: Estimated GFR < 15 mL/min/1.73m2 Glucose 91 60 - 115 mg/dL [facility] Calcium 10.5(H) 8.4 - 10.2 mg/dL [facility] Bilirubin, Total 0.4 0.0 - 1.0 mg/dL [facility] Aspartate Amino Transferase 17 5 - 31 U/L [facility] Alanine Aminotransferase 18 0 - 31 U/L [facility] Total Protein 8.5(H) 6.5 - 8.0 g/dL [facility] Albumin Level 4.3 3.5 - 5.0 g/dL [facility] Alkaline Phosphatase 87 39 - 117 U/L [facility] Blood Venous blood specimen / Unknown 07/15/2024 3:24 PM EDT 07/15/2024 3:26 PM EDT us Marisabel Michel MD LAB BLOOD ORDERABLES Final Resul t [facility] [address] [place] [phone] * (ABNORMAL) CBC auto differential (07/15/2024 3:24 PM EDT) White Blood Count 8.9 4.8 - 10.8 X10*3/uL [facility] Red Blood Count 4.49 4.20 - 5.50 X10*6/uL [facility] Hemoglobin 12.9 12.0 - 16.0 g/dl [facility] Hematocrit 39.1 37.0 - 47.0 % [facility] Mean Corpuscular Volume 87.1 80.0 - 98.0 fL [facility] Mean Corpuscular Hemoglobin 28.7 27.0 - 33.0 pg [facility] Mean Corpuscular HGB Conc 33.0 31.0 - 35.0 g/dl [facility] Red Cell Distribution Width 13.7 11.0 - 16.0 % [facility] Platelet Count 223 160 - 400 X10*3/uL [facility] Mean Platelet Volume 13.1(H) 9.4 - 12.3 fL [facility] Neutrophils Percent Auto 68.4 45 - 73 % [facility] Imm Gran Pct Auto 0.6(H) 0.0 - 0.4 % [facility] Lymphocytes Percent Auto 17.3(L) 20 - 40 % [facility] Monocytes Percent Auto 10.3 2 - 11 % [facility] Eosinophils Percent Auto 3.1 0 - 4 % [facility] Basophils Percent Auto 0.3 0 - 2 % [facility] NRBC Pct Auto 0.0 0.0 - 0.2 /100WBC [facility] Neutrophils Absolute Auto 6.1 2.0 - 8.3 x10*3/uL [facility] Imm Gran Abs Auto 0.05(H) 0.00 - 0.03 X10*3/uL [facility] Lymphocytes Absolute Auto 1.6 1.2 - 4.9 X10*3/uL [facility] Monocytes Absolute Auto 0.9 0.1 - 1.2 X10*3/uL [facility] Eosinophils Absolute Auto 0.3 0.0 - 0.4 X10*3/uL [facility] Basophils Absolute Auto 0.0 0.0 - 0.2 X10*3/uL [facility] NRBC Abs Auto 0.000 0.0 - 0.012 X10*3/uL [facility] Blood Venous blood specimen / Unknown 07/15/2024 3:24 PM EDT 07/15/2024 3:26 PM EDT Marisabel Michel MD LAB BLOOD ORDERABLES Edited Resu lt - Final [facility] [address] [place] [address] [phone] * VASC US Lower Extremity Venous Duplex Bilateral (07/15/2024 2:00 PM EDT) 07/15/2024 2:00 PM EDT Narrative [facility] - 07/15/2024 2:49 PM EDT [address] [address] Ultrasound Report Signed Patient: Radha Kimball MR#: [id number] : 1970 Acct:[id number] Age/Sex: 53 / F ADM Date: 07/15/24 Loc: .US Attending Dr: Sebastian Matta MD Ordering Physician: Sebastian Matta MD Date of Service: 07/15/24 Procedure(s): US venous duplex LE BI Accession Number(s): [id number] cc: Sebastian Matta MD; Marisabel Michel MD [...] 07/15/24 1445 DD/ 1400 TD/TT: 07/15/24 1420 Anchorman: Procedure Note Donotuseinterpreter, Image - 07/15/[address] [address] Ultrasound Report Signed Patient: Radha Kimball#: [id number] : 1970Acct:[id number] Age/Sex: 53 / FADM Date: 07/15/24 Loc: HO.US Attending Dr: Sebastian Matta MD Ordering Physician: Sebastian Matta MD Date of Service: 07/15/24 Procedure(s): US venous duplex LE BI Accession Number(s): [id number] cc: Sebastian Matta MD; Marisabel Michel MD [...] 07/15/24 1445 DD/ 1400 TD/TT: 07/15/24 1420 Anchorman: [facility] External Provider CV VASC ULAR PROCEDURES Final Result [facility] [address] [place] [address] documented in this encounter Visit Diagnoses Diagnosis Prediabetes- Primary Other abnormal glucose Primary hypertension Unspecified essential hypertension Acute right ankle pain Fever, unspecified fever cause documented in this encounter Additional Health Concerns Assessment Noted Time PHQ-9 Depression Total Score: 0 03/29/20 24 3:23 PM EDT documented as of this encounter Care Teams Dust Collector Treater Relationship Specialty Start Date End Date Marisabel Michel MD [address] [place] [phone] PCP - General Family Medicine 09/04/11 documented as of this encounter
--- OUTSIDE RECORDS SUMMARY | 2025-08-28 17:43 | XMS_ITS | Encounter Summary ---
Author Organization [employer] Address [address] [facility] 7t [place] [address] Care Team Providers Care Bone Grinder Name Role Phone Marisabel Michel MD Primary Care Provider [phone] Reason for Referral * Imaging (Urgent) - Closed Specialty Diagnoses / Procedures Referred By Contac t Referred To Contact Radiology Diagnoses Acute pain of right knee Procedures MR Knee w/o Contrast Right Marisabel Michel MD [address] [place] [address] Phone: tel: fax: [facility] [address] [place] [address] Phone: tel: fax: Referral ID Status Reason Start Date Expiration Date Visits Re quested Visits Authorized [id number] Closed 05/18/2024 05/18/2025 1 1 Encounter Details Date Type Department Care Team (Late st Contact Info) Description 05/18/2024 Orders Only [facility] [address] [place], [place] [phone] Marisabel Michel MD [address] [place] [address] Acute pain of right knee [...] 2:15 PM EDT Office Visit [facility] [address] [place] [address] Marisabel Michel MD [address] [place] [address] documented as of this encounter Procedures Procedure Name Priority Date/Time Associated Diagnosis Comments MR KNEE WO CONTRAST RIGHT Urgent 05/25/2024 3:33 PM EDT Acute pain of right knee documented in this encounter Results * MR Knee w/o Contrast Right (05/25/2024 3:33 PM EDT) Anatomical Region Laterality Modality Magnetic Resonan ce 05/25/2024 3:33 PM EDT Narrative 05/25/2024 4:16 PM EDT [address] [address] Magnetic Resonance Report Signed Patient: Radha Kimball MR#: [id number] : 1970 Acct:[id number] Age/Sex: 53 / F ADM Date: 05/25/24 Loc: HO.MRI Attending Dr: Marisabel Michel MD Ordering Physician: Marisabel Michel MD Date of Service: 05/25/24 Procedure(s): MR knee RT wo con Accession Number(s): [id number] cc: Marisabel Michel MD EXAMINATION: MR KNEE [...] By: <Electronically signed by Isiah Suazo MD in OV> 05/25/24 1613 DD/ 1533 TD/TT: Machine Woodworking Sander: SANDHYA Procedure Note Donotuseinterpreter, Image - 05/25/2024 [place] [address] Magnetic Resonance Report Signed Patient: Radha Kimball#: [id number] : 1970Acct:[id number] Age/Sex: 53 / FADM Date: 05/25/24 Loc: HO.MRI Attending Dr: Marisabel Michel MD Ordering Physician: Marisabel Michel MD Date of Service: 05/25/24 Procedure(s): MR knee RT wo con Accession Number(s): [id number] cc: Marisabel Michel MD EXAMINATION: MR KNEE [...] MD inOV> 05/25/24 1613 DD/ 1533 TD/TT: Machine Woodworking Sander: DM Marisabel Michel MD IM MRI PROCEDURES Final Result documented in this encounter Visit Diagnoses Diagnosis Acute pain of right knee- Primary Primary hypertension Unspecified essential hypertension documented in this encounter Additional Health Concerns Assessment Noted Time PHQ-9 Depression Total Score: 0 03/29/20 24 3:23 PM EDT documented as of this encounter Care Teams Bone Grinder Relationship Specialty Start Date End Date Marisabel Michel MD [address] [place] [phone] PCP - General Family Medicine 09/04/11 documented as of this encounter
--- OUTSIDE RECORDS SUMMARY | 2025-08-28 17:43 | XMS_ITS | Encounter Summary ---
Author Organization [employer] Address [address] [facility] 7t [place] [address] Care Team Providers Care Wire Coiner Name Role Phone Marisabel Michel MD Primary Care Provider [phone] Encounter Details Date Type Department Care Team (Late Contact Info) Description 12/02/2022 Orders Only [facility] [address] [place] [address] [phone] Marisabel Michel MD [address] [place] [address] [phone] Moderate persistent asthma without complication (Primary Dx); [...] Department Care Team (Late Contact Info) Description 09/05/2025 2:15 PM EDT Office Visit [facility] [address] [place] [address] [phone] Marisabel Michel MD [address] [place], [place] [phone] documented as of this encounter Visit Diagnoses Diagnosis Moderate persistent asthma without complication- Primary Allergic rhinitis due to other allergic trigger, unspecified seasonality Intrinsic atopic dermatitis documented in this encounter Care Teams Wire Coiner Relationship Specialty Start Date End Date Marisabel Michel MD [address] [place] [address] [phone] PCP - General Family Medicine 09/04/11 documented as of this encounter
--- OUTSIDE RECORDS SUMMARY | 2025-08-28 17:43 | XMS_ITS | Encounter Summary ---
Author Organization [employer] Address [address] [facility] 7t [place] [address] Care Team Providers Care Accountant Bookkeeper Name Role Phone Marisabel Michel MD Primary Care Provider [phone] Encounter Details Date Type Department Care Team (Late st Contact Info) Description 01/08/2023 Orders Only [facility] [address] [place] [address] [phone] Marisabel Michel MD [address] [place] [address] [phone] Allergic rhinitis due to other allergic trigger, [...] Description 09/05/2025 2:15 PM EDT Office Visit [facility] [address] [place] [address] [phone] Marisabel Michel MD [address] [place] [address] [phone] documented as of this encounter Visit Diagnoses Diagnosis Allergic rhinitis due to other allergic trigger, unspecified seasonality- Primary Moderate persistent asthma without complication documented in this encounter Care Teams Accountant Bookkeeper Relationship Specialty Start Date End Date Marisabel Michel MD [address] [place] [address] PCP - General Family Medicine 09/04/11 documented as of this encounter
--- OUTSIDE RECORDS SUMMARY | 2025-08-28 17:43 | XMS_ITS | Encounter Summary ---
Author Organization [employer] Address [address] [place] [address] 7t [place] [address] Care Team Providers Care Clinical Systems Analyst Name Role Phone Marisabel Michel MD Primary Care Provider [phone] Reason for Referral * Consultation (Routine) - Closed Specialty Diagnoses / Procedures Referred By Contcarlos t Referred To Contact Diagnoses Sinusitis, unspecified chronicity, unspecified location Marisabel Michel MD [address] [place] [address] Phone: tel: fax: Jamshid Aly [address] [place] [address] Drive [address] [place], [place] [address] Phone: tel: fax: Referral ID Status Reason Start Date Expiration Date V isits Requested Visits Authorized [id number] Closed Specialty Services Required 04/22/2024 04/22/2025 1 1 Encounter Details Date Type Department Care Team (Late st Contact Info) Description 04/22/2024 Orders Only [facility] [address] [place], [place] [phone] Marisabel Michel MD [address] [place], [place] [phone] Sinusitis, unspecified chronicity, unspecified location (Primary Dx) [...] Description 09/05/2025 2:15 PM EDT Office Visit [facility] [address] [place] [address] Marisabel Michel MD [address] [place] [address] Scheduled Referrals Name Type Priority Associated Diagnoses [...] PM EDT Narrative 05/10/2024 5:32 PM EDT [address] [address] Ultrasound Report Signed Patient: Radha Kimball MR#: [id number] : 1970 Acct:[id number] Age/Sex: 53 / F ADM Date: 05/10/24 Loc: HO.RAFAEL Attending Dr: Marisabel Michel MD Ordering Physician: Marisabel Michel MD Date of Service: 05/10/24 Procedure(s): US venous duplex LE RT Accession Number(s): [id number] cc: Marisabel Michel MD EXAMINATION: US VENOUS [...] in OV> 05/10/24 1728 DD/ 1648 TD/TT: Consultant Nurse: JUANITA Procedure Note Donotuseinterpreter, Image - 05/10/[address] [address] Ultrasound Report Signed Patient: Radha Kimball#: [id number] : 1970Acct:[id number] Age/Sex: 53 / FADM Date: 05/10/24 Loc: [facility] Attending Dr: Marisabel Michel MD Ordering Physician: Marisabel Michel MD Date of Service: 05/10/24 Procedure(s): US venous duplex LE RT Accession Number(s): [id number] cc: Marisabel Michel MD EXAMINATION: US VENOUS [...] in OV> 05/10/24 1728 DD/ 1648 TD/TT: Consultant Nurse: JUANITA us Marisabel Michel MD IMG US PROCEDURES Final Result documented in this encounter Visit Diagnoses Diagnosis Sinusitis, unspecified chronicity, unspecified location- Primary documented in this encounter Additional Health Concerns Assessment Noted Time PHQ-9 Depression Total Score: 0 03/29/20 24 3:23 PM EDT documented as of this encounter Care Teams Clinical Systems Analyst Relationship Specialty Start Date End Date Marisabel Michel MD [address] [place] [phone] PCP - General Family Medicine 09/04/11 documented as of this encounter
--- OUTSIDE RECORDS SUMMARY | 2025-08-28 17:43 | XMS_ITS | Encounter Summary ---
Author Organization [employer] Address 75 [facility] 7t [place] [address] Care Team Providers Care Docketing Specialist Name Role Phone Marisabel Michel MD Primary Care Provider [phone] Reason for Referral * Imaging (Urgent) - Canceled Specialty Diagnoses / Procedures Referred By Contac t Referred To Contact Radiology Diagnoses Elevated erythrocyte sedimentation rate Acute right ankle pain Cellulitis of right leg Procedures MR Ankle w/ and w/o Contrast Right Marisabel Michel MD [address] [place] [address] Phone: tel: fax: [address] Phone: tel: fax: Referral ID Status Reason Start Date Expiration Date V isits Requested Visits Authorized [id number] Canceled 07/19/2024 07/19/2025 1 1 * Imaging (Urgent) - Closed Specialty Diagnoses / Procedures Referred By Contac t Referred To Contact Radiology Diagnoses Elevated erythrocyte sedimentation rate Acute right ankle pain Cellulitis of right leg Procedures MRI LOWER LEG / TIBIA FIBULA RIGHT W WO CONTRAST Marisabel Michel MD [address] [place] [address] Phone: tel: fax: [address] Phone: tel: fax: Referral ID Status Reason Start Date Expiration Date Visits Re quested Visits Authorized [id number] Closed 07/19/2024 07/19/2025 1 1 Encounter Details Date Type Department Care Team (Late st Contact Info) Description 07/15/2024 Orders Only [facility] [address] [place] [address] Marisabel Michel MD [address] [place] [address] Elevated erythrocyte sedimentation rate (Primary Dx); Cellulitis [...] Description 09/05/2025 2:15 PM EDT Office Visit [facility] [address] [place] [address] Marisabel Michel MD [address] [place] [address] Scheduled Orders Name Type Priority Associated Diagnoses [...] Vitamin D 25-OH Total 54.6 >30 ng/mL [facility] Comment:Health Based Referen ce Values*< 20 ng/mL [id number] ng/mL Insufficient> 30 ng/mL Sufficient*Ashok SMITH. N [...] ORDERABLES Final Resul t Performing Organization Address City/[facility]/ZIP Co de Phone Number [facility] [address] [place] [phone] * (ABNORMAL) PTH, Intact Without Calcium (08/02/2024 5:05 PM EDT) Parathyroid Hormone, Intact 78.5(H) 8.7 - 77.1 pg/mL [facility] Blood Venous blood specimen / Unknown 08/02/2024 5:05 PM EDT 08/02/2024 5:10 PM EDT Marisabel Michel MD LAB BLOOD ORDERABLES Final Resul t Performing Organization Address City/[facility]/ZIP Co de Phone Number [facility] [address] [place] [phone] * TSH (08/02/2024 5:05 PM EDT) Thyroid Stimulating Hormone 2.46 0.32 - 4.0 uIU/mL [facility] Comment:TSH 3rd Generation ( [facility]) Blood Venous blood specimen / Unknown 08/02/2024 5:05 PM EDT 08/02/2024 5:10 PM EDT Marisabel Michel MD LAB BLOOD ORDERABLES Final Resul t Performing Organization Address [facility] Co de Phone Number [facility] [address] [place] [phone] * (ABNORMAL) Sed Rate by Modified Westergren (08/02/2024 5:05 PM EDT) Erythrocyte Sedimentation Rate 71(H) 0 - 20 MM/HR [facility] Comment:Patients with polycy themia and many hemoglobin abnormalitiesmay have depressed sed rates whereas patients with anemiamay have elevated sed rates. Blood Venous blood specimen / Unknown 08/02/2024 5:05 PM EDT 08/02/2024 5:10 PM EDT us Marisabel Michel MD LAB BLOOD ORDERABLES Final Resul t Performing Organization Address [facility] Co de Phone Number [facility] [address] [place] [phone] * (ABNORMAL) C-reactive Protein (08/02/2024 5:05 PM EDT) C Reactive Protein 1.90(H) < or = 0.50 mg/dL [facility] Blood Venous blood specimen / Unknown 08/02/2024 5:05 PM EDT 08/02/2024 5:10 PM EDT Marisabel Michel MD LAB BLOOD ORDERABLES Final Resul t Performing Organization Address [facility]/ZIP Co de Phone Number [facility] [address] [place] [phone] * T4, Free (07/15/2024 3:24 PM EDT) Free T4 (Free Thyroxine) 1.45 0.71 - 1.85 ng/dL [facility] Blood Venous blood specimen / Unknown 07/15/2024 3:24 PM EDT 07/15/2024 3:26 PM EDT Marisabel Michel MD LAB BLOOD ORDERABLES Final Resul t Performing Organization Address City/State/[facility] Co de Phone Number [facility] [address] [place] [phone] documented in this encounter Visit Diagnoses Diagnosis Elevated erythrocyte sedimentation rate- Primary Elevated sedimentation rate Cellulitis of lower extremity, unspecified laterality Abnormal TSH Fever, unspecified fever cause Acute right ankle pain Cellulitis of right leg documented in this encounter Additional Health Concerns Assessment Noted Time PHQ-9 Depression Total Score: 0 03/29/20 24 3:23 PM EDT documented as of this encounter Care Teams Docketing Specialist Relationship Specialty Start Date End Date Marisabel Michel MD [address] [place] [phone] PCP - General Family Medicine 09/04/11 documented as of this encounter
--- OUTSIDE RECORDS SUMMARY | 2025-08-28 17:44 | XMS_ITS | Encounter Summary ---
Author Organization [employer] Address [address] [place] [address] 7[place] [address] Care Team Providers Care Quilt Stuffer Name Role Phone Marisabel Michel MD Primary Care Provider [phone] Reason for Referral * Consultation (Routine) - Closed Specialty Diagnoses / Procedures Referred By Vee t Referred To Contact Physical Therapy Diagnoses Cerebral palsy, unspecified type (CMS/HCC) (HCC) Wheelchair dependence Marisabel Michel MD [address] [place] [address] Phone: tel: fax: Referral ID Status Reason Start Date Expiration Date V isits Requested Visits Authorized [id number] Closed Specialty Services Required 11/25/2024 11/25/2025 1 1 * Consultation (Routine) - Closed Specialty Diagnoses / Procedures Referred By Contcarlos t Referred To Contact Occupational Therapy Diagnoses Cerebral palsy, unspecified type (CMS/HCC) (HCC) Wheelchair dependence Marisabel Michel MD [address] [place] [address] Phone: tel: fax: Referral ID Status Reason Start Date Expiration Date V isits Requested Visits Authorized [id number] Closed Specialty Services Required 11/25/2024 11/25/2025 1 1 Encounter Details Date Type Department Care Team (Late st Contact Info) Description 11/25/2024 Orders Only [facility] MEDICINE [address] [place] [phone] Marisabel Michel MD [address] [place] [address] Cerebral palsy, unspecified type (CMS/HCC) (Primary Dx); [...] 2:15 PM EDT Office Visit [facility]INE [address] [place] [address] Marisabel Michel MD [address] [place] [address] Scheduled Referrals Name Type Priority Associated Diagnoses Orde r Schedule Referral to Occupational Therapy Outpatient Referral Routine Cerebral palsy, unspecified type (CMS/HCC) Wheelchair dependence Expected: 11/25/2024 (Approximate), Expires: 11/25/2025 Referral to Physical Therapy Outpatient Referral Routine Cerebral palsy, unspecified type (CMS/HCC) Wheelchair dependence Expected: 11/25/2024 (Approximate), Expires: 11/25/2025 documented as of this encounter Visit Diagnoses Diagnosis Cerebral palsy, unspecified type (CMS/HCC) (HCC)- Primary Wheelchair dependence Hordeolum internum left lower eyelid documented in this encounter Additional Health Concerns Assessment Noted Time PHQ-9 Depression Total Score: 0 03/29/20 24 3:23 PM EDT documented as of this encounter Care Teams Quilt Stuffer Relationship Specialty Start Date End Date Marisabel Michel MD [address] [place] [address] PCP - General Family Medicine 09/04/11 documented as of this encounter
--- OUTSIDE RECORDS SUMMARY | 2025-08-28 17:44 | XMS_ITS | Encounter Summary ---
Author Organization [employer] Address [address] [facility] 7t [place] [address] Care Team Providers Care Facilities Plant Engineer Name Role Phone Marisabel Michel MD Primary Care Provider [phone] Reason for Visit * Reason Onset Date Comments Med Refill 09/15/2023 Encounter Details Date Type Department Care Team ([facility] st Contact Info) Description 09/15/2023 Telephone [facility] MEDICINE [address] [place], [place] [phone] Marisabel Michel MD 230 [place], [place] [phone] Med Refill Social History Tobacco Use Types [...] t he electric, gas, oil or water [employer] mobility threatened to shut off services in your [...] Description 09/05/2025 2:15 PM EDT Office Visit [facility] MEDICINE [address] [place] [phone] Marisabel Michel MD [address] [place] [address] documented as of this encounter Visit Diagnoses Not on filedocumented in this encounter Additional Health Concerns Assessment Noted Time PHQ-9 Depression Total Score: 2 02/25/20 23 1:12 PM EDT documented as of this encounter Care Teams Facilities Plant Engineer Relationship Specialty Start Date End Date Marisabel Michel MD [address] [place] [phone] PCP - General Family Medicine 09/04/11 documented as of this encounter
--- OUTSIDE RECORDS SUMMARY | 2025-08-28 17:44 | XMS_ITS | Encounter Summary ---
Author Organization [employer] Address [address] [place] [address] 7t [place] [address] Care Team Providers Care Slope Runner Name Role Phone Marisabel Michel MD Primary Care Provider [phone] Encounter Details Date Type Department Care Team (Late st Contact Info) Description 06/30/2023 Abstract [facility] MEDICINE [address] [place] [address] [phone] Marisabel Michel MD [address] [place] [address] [phone] Social History Tobacco Use Types Packs/Day Years [...] Description 09/05/2025 2:15 PM EDT Office Visit [facility] MEDICINE [address] [place] [address] [phone] Marisabel Michel MD [address] [place] [address] [phone] documented as of this encounter Procedures Procedure [...] documented as of this encounter Care Teams Slope Runner Relationship Specialty Start Date End Date Marisabel Michel MD 230 [place] [address] PCP - General Family Medicine 09/04/11 documented as of this encounter
--- OUTSIDE RECORDS SUMMARY | 2025-08-28 17:44 | XMS_ITS | Encounter Summary ---
Author Organization [employer] Address [address] [facility] 7t [place] [address] Care Team Providers Care Levi Maker Name Role Phone Marisabel Michel MD Primary Care Provider [phone] Encounter Details Date Type Department Care Team ([facility] st Contact Info) Description 08/01/2024 Orders Only [facility] MEDICINE 230 [place], [place] [phone] Marisabel Michel MD 230 [place], [place] [phone] Prediabetes (Primary Dx) Social History Tobacco Use [...] Description 09/05/2025 2:15 PM EDT Office Visit [facility] MEDICINE [address] [place] [phone] Marisabel Michel MD [address] [place] [address] documented as of this encounter Visit Diagnoses Diagnosis Prediabetes- Primary Other abnormal glucose documented in this encounter Additional Health Concerns Assessment Noted Time PHQ-9 Depression Total Score: 0 03/29/20 24 3:23 PM EDT documented as of this encounter Care Teams Levi Maker Relationship Specialty Start Date End Date Marisabel Michel MD [address] [place] [phone] PCP - General Family Medicine 09/04/11 documented as of this encounter
--- OUTSIDE RECORDS SUMMARY | 2025-08-28 17:44 | XMS_ITS | Encounter Summary ---
Author Organization [employer] Address [address] [facility] 7t [place] [address] Care Team Providers Care Building Pressure Washer Name Role Phone Marisabel Michel MD Primary Care Provider [phone] Encounter Details Date Type Department Care Team ([facility] st Contact Info) Description 09/08/2024 Orders Only [facility] MEDICINE 230 [place], [place] [phone] Marisabel Michel MD 230 [place] [address] Social History Tobacco Use Types Packs/Day Years [...] 2:15 PM EDT Office Visit [facility] MEDICINE [address] [place] [phone] Marisabel Michel MD [address] [place] [address] documented as of this encounter Visit Diagnoses Not on filedocumented in this encounter Additional Health Concerns Assessment Noted Time PHQ-9 Depression Total Score: 0 03/29/20 24 3:23 PM EDT documented as of this encounter Care Teams Building Pressure Washer Relationship Specialty Start Date End Date Marisabel Michel MD [address] [place] [address] [phone] PCP - General Family Medicine 09/04/11 documented as of this encounter
--- OUTSIDE RECORDS SUMMARY | 2025-08-28 17:44 | XMS_ITS | Encounter Summary ---
Author Organization [employer] Address 75 [facility] 7t [place] [address] Care Team Providers Care Manufacturing Team Leader Name Role Phone Marisabel Michel MD Primary Care Provider [phone] Reason for Visit * Reason Comments Med Refill Encounter Details Date Type Department Care Team ([facility] st Contact Info) Description 10/08/2023 Refill [facility] 230 [place], [place] [phone] Angela Kirkland DO [address] [place], [place] [phone] Osteopenia, unspecified location Social History Tobacco Use [...] the past 12 months, has t he [employer], gas, oil or water company threatened to [...] [facility] MED[facility]INE 230 [place] [address] Marisabel Michel MD [address] [place] [address] documented as of this encounter Visit Diagnoses Diagnosis Osteopenia, unspecified location documented in this encounter Additional Health Concerns Assessment Noted Time PHQ-9 Depression Total Score: 2 02/25/20 23 1:12 PM EDT documented as of this encounter Care Teams Manufacturing Team Leader Relationship Specialty Start Date End Date Marisabel Michel MD [address] [place] [address] PCP - General Family Medicine 09/04/11 documented as of this encounter
--- OUTSIDE RECORDS SUMMARY | 2025-08-28 17:44 | XMS_ITS | Encounter Summary ---
Author Organization [employer] Address [address] [address] 7t [place] [address] Care Team Providers Care Qlikview Developer Name Role Phone Marisabel Michel MD Primary Care Provider [phone] Encounter Details Date Type Department Care Team ([facility] st Contact Info) Description 10/21/2023 Orders Only [facility] MEDICINE 230 [place], [place] [phone] Marisabel Michel MD [address] [place] [address] Open wound of right lower leg due [...] 2:15 PM EDT Office Visit [facility] MEDICINE 230 [place], [place] [phone] Marisabel Michel MD [address] [place] [address] documented as of this encounter Visit Diagnoses Diagnosis Open wound of right lower leg due to dog bite- Primary Peripheral venous insufficiency Unspecified venous (peripheral) insufficiency Venous stasis dermatitis of both lower extremities documented in this encounter Additional Health Concerns Assessment Noted Time PHQ-9 Depression Total Score: 2 02/25/20 23 1:12 PM EDT documented as of this encounter Care Teams Qlikview Developer Relationship Specialty Start Date End Date Marisabel Michel MD [address] [place] [phone] PCP - General Family Medicine 09/04/11 documented as of this encounter
--- OUTSIDE RECORDS SUMMARY | 2025-08-28 17:44 | XMS_ITS | Encounter Summary ---
Author Organization [employer] Address 75 [facility] 7t [place] [address] Care Team Providers Care Turbine Measurements Engineer Name Role Phone Marisabel Michel MD Primary Care Provider [phone] Reason for Visit * Reason Onset Date Comments Appointment Request 01/23/2023 Encounter Details Date Type Department Care Team (Late Contact Info) Description 01/23/2023 Telephone [facility] MEDICINE [address] [place] [address] [phone] Marisabel Michel MD [address] [place] [address] Appointment Request Social History Tobacco Use Types [...] appt with pcp. Please contact pt at [phone] documented in this encounter Plan of Treatment Upcoming Encounters Date Type Department Care Team (Late Contact Info) Description 09/05/2025 2:15 PM EDT Office Visit [facility] 230 [place] [address] Marisabel Michel MD [address] [place], [place] [phone] documented as of this encounter Visit Diagnoses Not on filedocumented in this encounter Care Teams Turbine Measurements Engineer Relationship Specialty Start Date End Date Marisabel Michel MD [address] [place], [place] [phone] PCP - General Family Medicine 09/04/11 documented as of this encounter
--- OUTSIDE RECORDS SUMMARY | 2025-08-28 17:44 | XMS_ITS | Encounter Summary ---
Author Organization [employer] Address [address] [facility] 7t [place] [address] Care Team Providers Care Service Provider Name Role Phone Marisabel Michel MD Primary Care Provider [phone] Reason for Referral * Consultation (Routine) - Closed Specialty Diagnoses / Procedures Referred By Contac t Referred To Contact Pharmacy Diagnoses Moderate persistent asthma without complication Prediabetes Primary hypertension Polypharmacy Marisabel Michel MD [address] [place] [address] Phone: tel: fax: Referral ID Status Reason Start Date Expiration Date V isits Requested Visits Authorized [id number] Closed Continuity of Care 09/09/2024 09/09/2025 6 6 Encounter Details Date Type Department Care Team ([facility] st Contact Info) Description 09/09/2024 Orders Only [facility] [address] [place] [address] [phone] Marisabel Michel MD [address] [place], [place] [phone] Moderate persistent asthma without complication (Primary Dx); [...] PM EDT Office Visit [facility] [address] [place] [phone] Marisabel Michel MD [address] [place] [phone] Scheduled Referrals Name Type Priority Associated Diagnoses [...] as of this encounter Care Teams Service Provider Relationship Specialty Start Date End Date Marisabel Michel MD [address] [place] [address] PCP - General Family Medicine 09/04/11 documented as of this encounter
--- OUTSIDE RECORDS SUMMARY | 2025-08-28 17:44 | XMS_ITS | Encounter Summary ---
Author Organization [employer] Address [address] [facility] [address] 7t [place] [address] Care Team Providers Care Prosthetic Assistant Name Role Phone Marisabel Michel MD Primary Care Provider [phone] Encounter Details Date Type Department Care Team ([facility] st Contact Info) Description 10/26/2023 Orders Only [facility] MEDICINE 230 [place], [place] [phone] Marisabel Michel MD 230 [place], [place] [phone] Social History Tobacco Use Types Packs/Day Years [...] Description 09/05/2025 2:15 PM EDT Office Visit [facility]INE 230 [place] [address] Marisabel Michel MD [address] [place] [address] documented as of this encounter Visit Diagnoses Not on filedocumented in this encounter Additional Health Concerns Assessment Noted Time PHQ-9 Depression Total Score: 2 02/25/20 23 1:12 PM EDT documented as of this encounter Care Teams Prosthetic Assistant Relationship Specialty Start Date End Date Marisabel Michel MD 230 [place] [address] PCP - General Family Medicine 09/04/11 documented as of this encounter
--- OUTSIDE RECORDS SUMMARY | 2025-08-28 17:44 | XMS_ITS | Encounter Summary ---
Author Organization [employer] Address 75 [facility] 7t [place] [address] Care Team Providers Care Marquetry Worker Name Role Phone Marisabel Michel MD Primary Care Provider [phone] Encounter Details Date Type Department Care Team ([facility] st Contact Info) Description 03/30/2025 Orders Only [facility] MEDICINE 230 [place], [place] [phone] Marisabel Michel MD [address] [place] [address] Social History Tobacco Use Types Packs/Day Years [...] Description 09/05/2025 2:15 PM EDT Office Visit [facility] MEDICINE 230 [place] [address] Marisabel Michel MD [address] [place] [address] documented as of this encounter Visit Diagnoses Not on filedocumented in this encounter Additional Health Concerns Assessment Noted Time PHQ-9 Depression Total Score: 0 03/29/20 24 3:23 PM EDT documented as of this encounter Care Teams Marquetry Worker Relationship Specialty Start Date End Date Marisabel Michel MD [address] [place] [address] PCP - General Family Medicine 09/04/11 documented as of this encounter
--- OUTSIDE RECORDS SUMMARY | 2025-08-28 17:44 | XMS_ITS | Encounter Summary ---
Author Organization [employer] Address 75 [facility] 7t [place] [address] Care Team Providers Care Firearms Expert Name Role Phone Marisabel Michel MD Primary Care Provider [phone] Encounter Details Date Type Department Care Team ([facility] st Contact Info) Description 08/05/2024 Orders Only [facility] MEDICINE 230 [place], [place] [phone] Marisabel Michel MD 230 [place] [address] Acute right ankle pain (Primary Dx); Cellulitis [...] Description 09/05/2025 2:15 PM EDT Office Visit [facility] MEDICINE 230 [place], [place] [phone] Marisabel Michel MD 230 [place], [place] [phone] Scheduled Orders Name Type Priority Associated Diagnoses [...] Sedimentation Rate 56(H) 0 - 20 MM/HR [facility] Comment:Patients with polycy themia and many hemoglobin abnormalitiesmay have depressed sed rates whereas patients with anemiamay have elevated sed rates. Blood Venous blood specimen / Unknown 08/30/2024 4:50 PM EDT 08/30/2024 5:01 PM EDT us Marisabel Michel MD LAB BLOOD ORDERABLES Final Resul t [facility] [address] [place] [address] [phone] * (ABNORMAL) Basic Metabolic Panel (08/30/2024 4:50 PM EDT) Sodium 140 135 - 145 mmol/L [facility] Potassium 3.6 3.3 - 5.1 mmol/L [facility] Chloride 104 96 - 108 mmol/L [facility] Carbon Dioxide 25 22 - 29 mmol/L [facility] Anion Gap 15 12 - 20 [facility] Urea Nitrogen (BUN) 16 9 - 16 mg/dL [facility] Creatinine, Serum 0.77 0.5 - 1.4 mg/dL [facility] Estimated Glomerular Filt Rate >60 [facility] Comment:NOTE: For -Am erican individuals, multiply the result by 1.210.Chronic Kidney Disease: Estimated GFR < 60 mL/min/1.72u4Esuhcu Kidney Disease: Estimated GFR < 15 mL/min/1.73m2 Glucose 93 60 - 115 mg/dL [facility] Calcium 10.3(H) 8.4 - 10.2 mg/dL [facility] Blood Venous blood specimen / Unknown 08/30/2024 4:50 PM EDT 08/30/2024 5:01 PM EDT Marisabel Michel MD LAB BLOOD ORDERABLES Final Resul t Performing Organization Address City/[facility] Co de Phone Number [facility] [address] [place] [phone] * Magnesium (08/30/2024 4:50 PM EDT) Magnesium 2.3 1.6 - 2.6 mg/dL [facility] Blood Venous blood specimen / Unknown 08/30/2024 4:50 PM EDT 08/30/2024 5:01 PM EDT Marisabel Michel MD LAB BLOOD ORDERABLES Final Resul t Performing Organization Address [facility] de Phone Number [facility] [address] [place] [phone] * (ABNORMAL) Reticulocyte Count (08/30/2024 4:50 PM EDT) Reticulocytes Absolute 0.095 0.026 - 0.095 X10*6/uL [facility] Immature Retic Fraction 8.3 3.0 - 15.9 % [facility] Retic HGB Equivalent 31.7 30.0 - 35.0 pg [facility] Reticulocyte Percent 2.1(H) 0.5 - 1.8 % [facility] Blood Venous blood specimen / Unknown 08/30/2024 4:50 PM EDT 08/30/2024 5:01 PM EDT Marisabel Michel MD LAB BLOOD ORDERABLES Final Resul t Performing Organization Address City/[facility] de Phone Number [facility] [address] [place] [phone] * (ABNORMAL) Iron And Total Iron Binding Capacity (08/30/2024 4:50 PM EDT) Iron 38 30 - 160 mcg/dL [facility] Total Iron Binding Capacity 206(L) 228 - 428 mcg/dL [facility] Percent Iron Saturation 18 15 - 50 % [facility] Unsaturated Iron Binding 168 ug/dL [facility] Blood Venous blood specimen / Unknown 08/30/2024 4:50 PM EDT 08/30/2024 5:01 PM EDT Marisabel Michel MD LAB BLOOD ORDERABLES Final Resul t Performing Organization Address [facility] de Phone Number [facility] [address] [place] [phone] * (ABNORMAL) Ferritin (08/30/2024 4:50 PM EDT) Ferritin 283(H) 10 - 250 ng/mL [facility] Blood Venous blood specimen / Unknown 08/30/2024 4:50 PM EDT 08/30/2024 5:01 PM EDT Marisabel Michel MD LAB BLOOD ORDERABLES Final Resul t Performing Organization Address [facility] Co de Phone Number [facility] [address] [place] [phone] * (ABNORMAL) C-reactive Protein (08/30/2024 4:50 PM EDT) C Reactive Protein 1.83(H) < or = 0.50 mg/dL [facility] Blood Venous blood specimen / Unknown 08/30/2024 4:50 PM EDT 08/30/2024 5:01 PM EDT us Marisabel Michel MD LAB BLOOD ORDERABLES Final Resul t [facility] [address] [place], [place] [phone] * (ABNORMAL) CBC auto differential (08/30/2024 4:50 PM EDT) White Blood Count 9.6 4.8 - 10.8 X10*3/uL [facility] Red Blood Count 4.49 4.20 - 5.50 X10*6/uL [facility] Hemoglobin 12.8 12.0 - 16.0 g/dl [facility] Hematocrit 39.2 37.0 - 47.0 % [facility] Mean Corpuscular Volume 87.3 80.0 - 98.0 fL [facility] Mean Corpuscular Hemoglobin 28.5 27.0 - 33.0 pg [facility] Mean Corpuscular HGB Conc 32.7 31.0 - 35.0 g/dl [facility] Red Cell Distribution Width 13.5 11.0 - 16.0 % [facility] Platelet Count 248 160 - 400 X10*3/uL [facility] Mean Platelet Volume 11.9 9.4 - 12.3 fL [facility] Neutrophils Percent Auto 70.8 45 - 73 % [facility] Imm Gran Pct Auto 0.8(H) 0.0 - 0.4 % [facility] Lymphocytes Percent Auto 17.2(L) 20 - 40 % [facility] Monocytes Percent Auto 6.7 2 - 11 % [facility] Eosinophils Percent Auto 4.0 0 - 4 % [facility] Basophils Percent Auto 0.5 0 - 2 % [facility] NRBC Pct Auto 0.0 0.0 - 0.2 /100WBC [facility] Neutrophils Absolute Auto 6.8 2.0 - 8.3 x10*3/uL [facility] Imm Gran Abs Auto 0.08(H) 0.00 - 0.03 X10*3/uL [facility] Lymphocytes Absolute Auto 1.7 1.2 - 4.9 X10*3/uL [facility] Monocytes Absolute Auto 0.6 0.1 - 1.2 X10*3/uL [facility] Eosinophils Absolute Auto 0.4 0.0 - 0.4 X10*3/uL [facility] Basophils Absolute Auto 0.1 0.0 - 0.2 X10*3/uL [facility] NRBC Abs Auto 0.000 0.0 - 0.012 X10*3/uL [facility] Blood Venous blood specimen / Unknown 08/30/2024 4:50 PM EDT 08/30/2024 5:01 PM EDT us Marisabel Michel MD LAB BLOOD ORDERABLES Final Resul t Performing Organization Address City/State/[facility] Co de Phone Number [facility] [address] [place] [phone] documented in this encounter Visit Diagnoses Diagnosis Acute right ankle pain- Primary Cellulitis of right lower leg Anemia, unspecified type Hypokalemia Hypopotassemia documented in this encounter Additional Health Concerns Assessment Noted Time PHQ-9 Depression Total Score: 0 03/29/20 24 3:23 PM EDT documented as of this encounter Care Teams Firearms Expert Relationship Specialty Start Date End Date Marisabel Michel MD [address] [place] [phone] PCP - General Family Medicine 09/04/11 documented as of this encounter
--- OUTSIDE RECORDS SUMMARY | 2025-08-28 17:44 | XMS_ITS | Encounter Summary ---
Author Organization [employer] Address [address] [facility] [address] [place] [address] Care Team Providers Care Multi Sensor Operator Name Role Phone Marisabel Michel MD Primary Care Provider Encounter Details Date Type Department Care Team ([facility] st Contact Info) Description 10/01/2023 Orders Only [facility] [address] [place], [place] [phone] Marisabel Michel MD [address] [place], [place] [phone] Social History Tobacco Use Types Packs/Day Years [...] Description 09/05/2025 2:15 PM EDT Office Visit [facility] [address] [place] [address] Marisabel Michel MD [address] [place] [address] documented as of this encounter Visit Diagnoses Not on filedocumented in this encounter Additional Health Concerns Assessment Noted Time PHQ-9 Depression Total Score: 2 02/25/20 23 1:12 PM EDT documented as of this encounter Care Teams Multi Sensor Operator Relationship Specialty Start Date End Date Marisabel Michel MD [address] [place] [address] PCP - General Family Medicine 09/04/11 documented as of this encounter
--- OUTSIDE RECORDS SUMMARY | 2025-08-28 17:44 | XMS_ITS | Encounter Summary ---
Author Organization [employer] Address [address] [facility] [address] [place] [address] Care Team Providers Care Dictaphone Transcriber Name Role Phone Marisabel Michel MD Primary Care Provider [phone] Encounter Details Date Type Department Care Team ([facility] st Contact Info) Description 03/28/2025 Orders Only [facility] [address] [place], [place] [phone] Marisabel Michel MD [address] [place], [place] [phone] Prediabetes (Primary Dx); Screening for lipid disorders; [...] Description 09/05/2025 2:15 PM EDT Office Visit [facility] [address] [place] [address] Marisabel Michel MD [address] [place] [address] documented as of this encounter Procedures Procedure [...] EDT) Sodium 142 135 - 145 mmol/L [facility] Potassium 3.7 3.3 - 5.1 mmol/L [facility] Chloride 107 96 - 108 mmol/L [facility] Carbon Dioxide 25 22 - 29 mmol/L [facility] Anion Gap 14 12 - 20 [facility] Urea Nitrogen (BUN) 17(H) 9 - 16 mg/dL [facility] Creatinine, Serum 0.64 0.5 - 1.4 mg/dL [facility] Estimated Glomerular Filt Rate >60 [facility] Comment:Chronic Kidney Disea se: Estimated GFR < 60 mL/min/[id number] Kidney Disease: Estimated GFR < 15 mL/min/1.73m2 Glucose 90 60 - 115 mg/dL [facility] Calcium 9.7 8.4 - 10.2 mg/dL [facility] Bilirubin, Total 0.4 0.0 - 1.0 mg/dL [facility] Aspartate Amino Transferase 28 5 - 31 U/L [facility] Alanine Aminotransferase 27 0 - 31 U/L [facility] Total Protein 7.1 6.5 - 8.0 g/dL [facility] Albumin Level 4.2 3.5 - 5.0 g/dL [facility] Alkaline Phosphatase 62 39 - 117 U/L [facility] Blood Venous blood specimen / Unknown 04/07/2025 3:01 PM EDT 04/07/2025 3:01 PM EDT us Marisabel Michel MD LAB BLOOD ORDERABLES Final Resul t [facility] [address] [place] [address] [phone] * (ABNORMAL) Hemoglobin A1c (04/07/2025 3:01 PM EDT) Hemoglobin A1c 6.3(H) <6.0 % [facility] Comment:Hemoglobin A1C Refer ence Range Adults: 4.8 - 6.0 % Non diabetic: < 6.0 % Goal: < 7.0 %Additional Action Suggested: > 8.0 %Note: Hemoglobin A1c results are invalid for patients with abnormal amounts of HbF. Blood transfusions may impact the HbA1c concentration in the patient sample. Estimated Average Glucose 134 mg/dL [facility] Comment:eAG = Estimated ave rage glucose which is %A1C expressed asaverage glucose, using the formula of the I0J-DgzdexoSdrjmwa Glucose study (ADAG), Diabetes Care, Vol.31,#8,Jun. 2007 Blood Venous blood specimen / Unknown 04/07/2025 3:01 PM EDT 04/07/2025 3:01 PM EDT Marisabel Michel MD LAB BLOOD ORDERABLES Final Resul t Performing Organization Address [facility] [place]/[facility] de Phone Number [facility] [address] [place] [phone] * (ABNORMAL) Lipid Panel with Reflex to Direct LDL (04/07/2025 3:01 PM EDT) Triglycerides 100 <150 mg/dL [facility] Comment:Desirable Triglyceri de: less than 150 mg/dLBorderline High Triglyceride 150-199 mg/dLHigh Triglyceride: 200-499 mg/dLVery High Triglyceride: greater than or equal to 5OO mg/dL Cholesterol 196 <200 mg/dL [facility] Comment:Desirable Cholestero l: less than 200 mg/dLBorderline High Cholesterol: 200-239 mg/dLHigh Cholesterol: greater than 239 mg/dL LDL Cholesterol Calculated 130(H) <100 mg/dL [facility] Comment:Desirable LDL: less than 100 mg/dLNear Optimal/Above Optimal LDL: 110- 129 mg/dLBorderline High LDL: 130-159 mg/dLHigh LDL: 160-189 mg/dLVery High LDL: greater than or equal to 190 mg/dL HDL Cholesterol 46 >40 mg/dL [facility] Comment:Desirable HDL: great er than 40 mg/dL Note: This HDL assay may give artificially low results in patients with liver disease. Blood 04/07/2025 3:01 PM EDT 04/07/2025 3:01 PM EDT Marisabel Michel MD LAB BLOOD ORDERABLES Final Resul t Performing Organization Address [facility] [place]/[facility] Co de Phone Number [facility] [address] [place] [address] [phone] documented in this encounter Visit Diagnoses Diagnosis Prediabetes- Primary Other abnormal glucose Screening for lipid disorders Screening for diabetes mellitus Hypokalemia Hypopotassemia documented in this encounter Additional Health Concerns Assessment Noted Time PHQ-9 Depression Total Score: 0 03/29/20 24 3:23 PM EDT documented as of this encounter Care Teams Dictaphone Transcriber Relationship Specialty Start Date End Date Marisabel Michel MD [address] [place] [phone] PCP - General Family Medicine 09/04/11 documented as of this encounter
--- OUTSIDE RECORDS SUMMARY | 2025-08-28 17:44 | XMS_ITS | Encounter Summary ---
Author Organization [employer] Address [address] [facility] [address] [place] [address] Care Team Providers Care Field Contact Technician Name Role Phone Marisabel Michel MD Primary Care Provider [phone] Encounter Details Date Type Department Care Team ([facility] st Contact Info) Description 08/23/2024 Orders Only [facility] [address] [place], [place] [phone] Marisabel Michel MD [address] [place] [address] Social History Tobacco Use Types Packs/Day Years [...] Description 09/05/2025 2:15 PM EDT Office Visit [facility] [address] [place] [phone] Marisabel Michel MD [address] [place] [phone] documented as of this encounter Visit Diagnoses Not on filedocumented in this encounter Additional Health Concerns Assessment Noted Time PHQ-9 Depression Total Score: 0 03/29/20 24 3:23 PM EDT documented as of this encounter Care Teams Field Contact Technician Relationship Specialty Start Date End Date Marisabel Michel MD [address] [place] [phone] PCP - General Family Medicine 09/04/11 documented as of this encounter
--- OUTSIDE RECORDS SUMMARY | 2025-08-28 17:44 | XMS_ITS | Clinical Summary ---
Author Organization [employer] Address [address] [facility] [address] [place] [address] Care Team Providers Care Specifications Writer Name Role Phone Marisabel Michel MD Primary Care Provider [phone] Allergies Active Allergy Reactions Criticality Noted Date [...] A DAY 60 g 11 023 Active Blood Pressure Monitor misc Check BP regularly as directed by your health care provider and as needed when you feel sick 1 each Active furosemide (Lasix) 40 MG tablet Take 1 tablet by mouth Once per day. Active triamcinolone (Kenalog) 0.025 % ointment PLEASE SEE ATTACHED FOR DETAILED DIRECTIONS Active ascorbic acid (Vitamin C) 500 MG tablet Take 1 tablet (500 mg) by mouth at bedtime. 90 tablet 3 Active hydrOXYzine HCl (Atarax) 25 MG [...] DAY 45 tablet 3 Active sodium chloride (Dougherty) 0.65 % nasal spray Administer 1 spray into each nostril if needed for congestion. 15 mL 11 2024 Active albuterol (Ventolin HFA) 108 (90 [...] hours if needed for mild pain. Active omeprazole (PriLOSEC) [address] capsule [...] TIMES DAILY 90 Leonardo 1 025 Active amitriptyline (Elavil) 10 MG tablet TAKE 1 TABLET BY MOUTH AT BEDTIME 90 tablet 3 025 Active COVID-19 At Home Antigen Test kit Use as instructed 2 kit 1 025 Active alendronate (Fosamax) 70 MG tablet TAKE 1 TABLET BY MOUTH IN THE MORNING ONCE WEEKLY AT LEAST 30 MINS BEFORE FIRST FOOD, BEVERAGE, MEDICATION 12 tablet 3 025 Active montelukast (Singulair) 10 MG tabletIndications :Moderate persistent asthma without complication TAKE 1 TABLET BY MOUTH EVERY DAY 90 tablet 1 025 Active cholecalciferol (D3-1000) 25 MCG (1000 UT) capsule TOME 1 CAPSULA POR VIA ORAL TODOS [place] 90 capsule 3 025 Active naproxen (Naprosyn) 375 MG tablet TOME 1 TABLETA POR VIA ORAL DOS VECES AL MYAH CUANDO SEA NECESARIO 30 tablet 025 Active fluticasone (Flonase) 50 MCG/ACT nasal spray USE 1-2 SPRAYS IN EACH NOSTRIL ONCE PER DAY. SHAKE GENTLY. CLEAN TIP AND REPLACE CAP. 48 mL 1 025 Active ciclopirox (Loprox) 0.77 % cream APLIQUE AL AREA AFECTADA DOS VECES AL MYAH 90 g 1 025 Active gabapentin (Neurontin) 100 MG capsule TAKE 1 CAPSULE BY MOUTH AT BEDTIME. MAY TAKE 2 CAPSULES IF PAIN RELIEF IS INADEQUATE. 90 capsule 3 025 Active docusate sodium (Colace) 100 MG capsule TAKE 1 CAPSULE BY MOUTH TWICE A DAY 180 capsule 1 025 Active gabapentin (Neurontin) 100 MG capsule Take 1 capsule by mouth at bedtime. May take 2 capsules if pain relief is inadequate. 90 capsule 3 024 2024 Discontinued fluticasone (Flonase) 50 MCG/ACT nasal spray USE 1-2 SPRAYS IN EACH NOSTRIL ONCE PER DAY. SHAKE GENTLY. CLEAN TIP AND REPLACE CAP. 48 mL 1 025 2024 Discontinued ciclopirox (Loprox) 0.77 % cream APLIQUE AL AREA AFECTADA DOS VECES AL MYAH 90 g 1 025 2024 Discontinued docusate sodium (Colace) 100 MG capsule TAKE 1 CAPSULE BY MOUTH TWICE A DAY 180 capsule 1 025 2024 Discontinued(R eorder (will not trigger notification to Pharmacy)) naproxen (Naprosyn) 375 MG tablet TAKE 1 TABLET BY MOUTH TWICE A DAY NEEDED 30 tablet 025 2024 Discontinued Active Problems Problem Noted Date Diagnosed Date Chronic right shoulder pain 06/08/2025 Assessment & Plan (06/08/2025 6:31 PM EDT): - possible rotator cuff tear - in the setting of CP - evaluated by physiatry provider - possible botulinum injection - check the status of hospital bed Acquired hammer toe of left foot 02/18/2025 Assessment & Plan (02/18/2025 5:07 AM EDT): - following with supervisor tank cleaning - she is pleased with her new supervisor tank cleaning's care - continue following the recommendation from the supervisor tank cleaning Acquired hammer toe of right foot 02/18/2025 Assessment & Plan (02/18/2025 5:07 AM EDT): - following with supervisor tank cleaning - she is pleased with her new supervisor tank cleaning's care - continue following the recommendation from the supervisor tank cleaning Ulcer of toe of left foot ([facility]/HCC) 02/18/2025 Assessment & Plan (02/18/2025 5:07 AM EDT): - following with supervisor tank cleaning - she is pleased with her new supervisor tank cleaning's care - continue following the recommendation from the supervisor tank cleaning Environmental allergies 10/05/2024 Orthopnea 10/05/2024 Osteoarthritis of [...] / lateral compartment osteoarthritis. - seen by [facility] on 05/18/24 and was given intraarticular [...] of osteoporosis / osteopenia - Following with supervisor tank cleaning; seen yesterday - Evaluate with MRI due [...] scan evaluation Prediabetes 07/01/2023 Assessment & Plan (06/08/2025 6:17 PM EDT): - strong family history of DM (mother, father, sisters) - Since 2022, it has been > 6% - Highest A1C 6.4% on 07/01/23 - Most Recent: A1c 6.3% on 04/07/25 - patient has been receiving steroid injection to her knee periodically - continue working on lifestyle modifications - discussed about medication option; we agreed not to start at this time Assessment & Plan (02/14/2025 9:45 AM EDT): [...] modifications Primary hypertension 03/08/2023 Assessment & Plan (06/08/2025 6:40 PM EDT): -Goal BP < 130/80 per ACC/AHA guideline (Treatment threshold >= 140/90 ) -BP not at goal. -Continue working on lifestyle modifications -Continue self-monitoring BP -Continue judicious use of furosemide 40 ng daily -Consider adding ARB -Treatment Hx: lisinopril 5 mg daily started in 10/2022, decreased to 2.5 mg daily in February 2023, then discontinued as she developed symptomatic hypotension because she started taking furosemide regularly for edema. Assessment & Plan (02/14/2025 9:44 AM EDT): [...] PCP and furosemide which was prescribed by electronics engineering technologist -Continue working on lifestyle modifications -Continue self-monitoring [...] PCP and furosemide which was prescribed by electronics engineering technologist -Continue working on lifestyle modifications -Continue self-monitoring [...] PCP and furosemide which was prescribed by electronics engineering technologist -Continue working on lifestyle modifications -Continue self-monitoring [...] (obstructive sleep apnea) 03/08/2023 Assessment & Plan (06/05/2025 12:51 PM EDT): -home sleep study on 09/23/21 revealed moderate FARTUN and hypoxemia the lowest 72%. In-lab sleep study was recommended -in-lab sleep study 02/09/23 Auto PAP 4-8 cm H2O was recommended. -continue following with sleep medicine clinic Assessment & Plan (02/14/2025 9:43 AM EDT): [...] medicine clinic Osteoporosis 03/08/2023 Assessment & Plan (06/05/2025 12:50 PM EDT): -09/16/21 DEXA The lowest T-score -2.6 in L femoral neck - 11/23/23 DEXA the lowest T-score -2.4 in L femoral neck -Risk factors: Minimal weight-bearing; early menopause; Family Hx -Started alendronate since Aug 2021; continue -Plan to continue alendronate for at least 5 years -Wt bearing exercise as tolerated -Fall precaution -Encourage adequate Ca and Vit D intake Assessment & Plan (07/29/2024 10:19 AM EDT): [...] Recurrent kidney stones 03/08/2023 Assessment & Plan (06/08/2025 6:25 PM EDT): -followed by [place]rologist, [facility] [place] on 04/11/25, annual f/u -most recent US in March 2025 a possible tiny stone in R kidney -s/p ESWL of R kidney stone on 04/05/2018 and 04/28/2018 -continue water intake 2L/day, preferrably lemon water Assessment & Plan (07/01/2023 3:47 PM EDT): -followed by urologist, [facility] seen on 04/07/23, annual f/u -most recent [...] Plan (07/29/2024 10:22 AM EDT): -followed by investment recovery technician, Dr. Rivers -advised to schedule appointment with Dr. Rivers to evaluate for her cellulitis; possible stasis dermatitis and/or atopic dermatitis. Assessment & Plan (03/08/2023 7:04 PM EDT): -followed by investment recovery technician, Dr. Rivers Tubular adenoma of colon 03/08/2023 [...] lower extremiti es 03/08/2023 Assessment & Plan (06/08/2025 6:26 PM EDT): -Followed by Systems Software Specialist. -Cont moisturization -Continue compression stocking -Leg elevation -Low sodium diet Assessment & Plan (07/01/2023 3:46 PM EDT): -Followed by Systems Software Specialist. -Cont moisturization. -Leg elevation -Low sodium diet Assessment & Plan (03/08/2023 7:16 PM EDT): Followed by Systems Software Specialist. -Cont moisturization. -Keep legs elevated. 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 Assessment & Plan (06/28/2024 5:46 AM EDT): - bilateral - following with [facility] provider - received steroid injection to left knee in January 2023 - received steroid injection to right knee in April 2024 Assessment & Plan (03/08/2023 6:55 PM EDT): - seen by [facility] provider on 12/26/22 - received steroid injection to left knee Assessment & Plan (10/29/2022 2:24 PM EST): Last X-ray in 2016 showed patella glynn Will refer to orthopedist so that they [...] Assessment & Plan (10/28/2022 9:41 PM EST): Frequency - every 2-3 months Most recent UTI in April 2022, E. Coli. Continue adequate hydration Check urine test Allergic rhinitis 12/19/2015 Assessment & Plan (02/18/2025 5:04 AM EDT): Previously followed by allergy / retail selling specialist, Dr. Loco, now waiting for an appt with new specialist Evaluated by [facility] provider in 2022, patient was offered immunotherapy, but had been hesitant Currently following with [facility] for both allergy, asthma, and FARTUN Continue cetirizine 10 mg bid Continue montelukast 10 mg daily Continue flonase Assessment & Plan (12/25/2023 6:13 AM EST): Previously followed by allergy / retail selling specialist, Dr. Loco, now waiting for an appt with new specialist Evaluated by [facility] provider in 2022, patient was offered immunotherapy, but had been hesitant Currently following with [facility] for both allergy, asthma, and FARTUN Continue cetirizine 10 mg bid Continue montelukast 10 mg daily Continue flonase Assessment & Plan (03/08/2023 7:14 PM EDT): Previously followed by allergy / retail selling specialist, Dr. Loco, now waiting for an appt with new specialist Continue cetirizine 10 mg bid Continue montelukast 10 mg daily Continue flonase Assessment & Plan (10/29/2022 2:29 PM EST): Followed by allergy / retail selling specialist, Dr. Mcelroy Continue cetirizine 10 mg bid Continue montelukast 10 mg daily Asthma 08/29/2015 Assessment & Plan (06/08/2025 6:24 PM EDT): -Previously followed by Dr. Loco, allergy /retail selling specialist -Currently following with Dr. Pederson, [facility] -Exacerbation 1-2 times per year -Last exacerbation in November 2020, Rx Prednisone -Continue fluticasone furonate / vilanterol (Breo) -Continue tiotropium (Spiriva) -Continue montelukast -Continue albuterol HFA/neb prn Treatment Hx: Advair, difficulty using Diskus; Pulmicort; Incruse Assessment & Plan (02/14/2025 9:44 AM EDT): -Previously followed by Dr. Loco, allergy /retail selling specialist -Currently following with Dr. Pederson, [facility] -Exacerbation 1-2 times per year -Last exacerbation in November 2020, Rx Prednisone (-Continue Spiriva) - Dr. Loco prescribed, but not mentioned in Dr. Pederson's note -Continue Breo -Continue montelukast -Continue albuterol HFA/neb prn Treatment Hx: Advair, difficulty using Diskus; Pulmicort; Incruse Assessment & Plan (06/28/2024 5:58 AM EDT): -Previously followed by Dr. Loco, allergy /retail selling specialist -Currently following with Dr. Pederson [facility] -Exacerbation 1-2 times per year -Last exacerbation in November 2020, Rx Prednisone (-Continue Spiriva) - Dr. Loco prescribed, but not mentioned in Dr. Pederson's note -Continue Breo -Continue montelukast -Continue albuterol HFA/neb prn Treatment Hx: Advair, difficulty using Diskus; Pulmicort; Incruse Assessment & Plan (03/29/2024 5:07 PM EDT): -Previously followed by Dr. Loco, allergy /retail selling specialist -Currently following with Dr. Pederson [facility] -Exacerbation 1-2 times per year -Last exacerbation in November 2020, Rx Prednisone (-Continue Spiriva) - Dr. Loco prescribed, but not mentioned in Dr. Pederson's note -Continue Breo -Continue montelukast -Continue albuterol HFA/neb prn Treatment Hx: Advair, difficulty using Diskus; Pulmicort; Incruse Assessment & Plan (12/25/2023 6:04 AM EST): -Previously followed by Dr. Loco, allergy /retail selling specialist -Currently following with Dr. Pederson [facility] -Exacerbation 1-2 times per year -Last exacerbation in November 2020, Rx Prednisone (-Continue Spiriva) - Dr. Loco prescribed, but not mentioned in Dr. Pederson's note -Continue Breo -Continue montelukast -Continue albuterol HFA/neb prn Treatment Hx: Advair, difficulty using Diskus; Pulmicort; Incruse Assessment & Plan (07/01/2023 3:43 PM EDT): -Previously followed by Dr. Loco, allergy /retail selling specialist -Exacerbation 1-2 times per year -Last exacerbation in November 2020, Rx Prednisone -Continue Spiriva -Continue Breo -Continue Singulair -Continue albuterol HFA/neb prn Treatment Hx: Advair, difficulty using Diskus; Pulmicort; Incruse Assessment & Plan (03/08/2023 6:59 PM EDT): -Previously followed by Dr. Loco, allergy /retail selling specialist -Exacerbation 1-2 times per year -Last exacerbation in November 2020, Rx Prednisone -Continue Spiriva -Continue Breo -Continue Singulair -Continue albuterol HFA/neb prn Treatment Hx: Advair, difficulty using Diskus; Pulmicort; Incruse Assessment & Plan (10/28/2022 9:38 PM EST): Technical Sales Representative, Dr. Mcelroy, upcoming appt Continue Breo Continue Singulair Continue albuterol HFA / neb prn Headache [...] Assessment & Plan (10/29/2022 2:28 PM EST): Wheelchair weight 35.4 lb on 01/20/2017 Peripheral venous insufficiency 05/22/2015 Assessment & Plan (06/05/2025 12:49 PM EDT): - following with [facility], last seen in Nov 2023, recommended to use furosemide - Recommended leg elevation, compression stocking, adequate activity, and low- sodium diet - Reviewed judicious use of diuretics because she does not have CHF. - patient verbalized understanding that she will continue using furosemide judiciously. Assessment & Plan (09/20/2024 5:54 PM EDT): [...] will continue using furosemide judiciously. - patient's leaf tinner recommended to double the dose of furosemide, [...] will continue using furosemide judiciously. - patient's leaf tinner recommended to double the dose of furosemide, [...] 05/22/2015 Migraine 05/17/2014 Gastroesophageal reflux disease 08/09/2013 Assessment & Plan (06/08/2025 6:28 PM EDT): - continue PPI - elevate head of bed Obesity 09/15/2012 Assessment & Plan (06/08/2025 6:21 PM EDT): - difficulty obtaining accurate weight and BMI due to wheelchair-bound status - it seems like she has lost weight, mainly by dietary modification - patient does a sitting Mili - continue current lifestyle modification effort Assessment & Plan (12/25/2023 6:20 AM EST): - difficulty obtaining accurate weight and BMI due to wheelchair-bound status - it seems like she has lost weight, mainly by dietary modification - patient does a sitting Mili - continue current lifestyle modification effort Cerebral palsy 09/15/2012 Assessment & Plan (06/08/2025 6:24 PM EDT): -Continue Baclofen prn. -completed home PT. -completed speech therapy. -Most recent swallowing evaluation in April 2015 was reassuring for no aspiration or airway problem. - Recently seen by physiatry provider and recommended Botox injection for her shoulder. Patient is searching more evidence before giving informed consent Assessment & Plan (02/14/2025 9:43 AM EDT): [...] Encounters Date Type Department Care Team Description 08/26/2025 Refill [facility] [address] [facility] [place] [address] Marisabel Michel MD 08/26/2025 Refill [facility] [address] [facility] [place] [address] Xiao Powers MD 08/26/2025 Refill [facility] [address] [facility] [place] [address] Clair Lombardi MD 08/23/2025 Refill [facility] [address] [facility] [place] [address] Marlyn Oliva MD 08/02/2025 Telephone [facility] [address] [facility] [place] [address] Marisabel Michel MD Durable Medical Equipment ([place]: Requested Documentation) 06/22/2025 Telephone [facility] [address] [place] [id number] Marisabel Michel MD medical necessity 06/16/2025 Refill [facility] [place] [address] Marisabel Michel MD 06/09/2025 Telephone [facility] [place] [address] Marisabel Michel MD Durable Medical Equipment (Med Necessity Letter: Hospital Bed) 06/05/2025 1:45 PM EDT Office Visit [facility] [address] [facility] [place] [address] Marisabel Michel MD Primary hypertension (Primary Dx); Venous stasis dermatitis of both lower extremities; Peripheral venous insufficiency; Other osteoporosis with current pathological fracture, sequela; Prediabetes; Cerebral palsy, unspecified type (CMS/HCC); FARTUN (obstructive sleep apnea); Dietary counseling; Exercise counseling; Class 1 obesity with serious comorbidity and body mass index (BMI) of 34.0 to 34.9 in adult, unspecified obesity type; Moderate persistent asthma without complication; Recurrent kidney stones; Orthopnea; Gastroesophageal reflux disease, unspecified whether esophagitis present; Primary osteoarthritis of right knee; Chronic right shoulder pain 06/05/2025 Travel 06/02/2025 Telephone [facility] [address] [place], [place] [phone] Marisabel Michel MD chart prep from Last 3 Months Immunizations Immunization Administration [...] Mass Index 34.25 06/05/2025 2:08 PM EDT Plan of Treatment Upcoming Encounters Date Type Department Care Team (Late st Contact Info) Description 09/05/2025 2:15 PM EDT Office Visit [facility] [address] [place], [place] [phone] Marisabel Michel MD [address] [place], [place] [phone] Health Maintenance Due Date Last Done Comments CT Colonography 1970 FIT DNA/Cologuard 1970 FIT 1970 FOBT 1970 Sigmoidoscopy 1970 Pap Smear 1991 HPV/Cotest 2000 Influenza Vaccine (#1) 2025 , 12/15/2023, 10/28/2022, Additional history exists Alcohol/Substance Use Screening 09/19/2025 09/19/2024 Mammogram 03/21/2026 03/21/2024, 01/22, 02/12/2022, Additional history exists Diabetes: Hemoglobin A1C 04/07/2026 025, 08/02/2024, 12/07/2023, Additional history exists Depression Screening 06/05/2026 06/05/2025, 06/05/20 25 Disability Screening 06/05/2026 06/05/2025 SDOH Screening 06/05/2026 06/05/2025 Tobacco Screening 06/05/2026 06/05/2025 Colonoscopy 06/12/2026 06/12/2021 Colorectal Cancer Screening 06/12/2026 [...] Completed 09/19/2024, , 11/05/2022, Additional history exists Cervical Cancer Screening Discontinued [...] Date/Time Associated Diagnosis Comments HEMOGLOBIN A1C Routine 04/07/2025 3:01 PM EDT Prediabetes Screening for diabetes mellitus LIPID PANEL WITH REFLEX TO DIRECT LDL Routine 04/07/2025 3:01 PM EDT Screening for lipid disorders BI MAMMOGRAM SCREENING TOMOSYNTHESIS BILATERAL Routine 03/21/2024 1:10 PM EDT HM COLONOSCOPY Routine 06/12/2021 from Last 3 Months or Most Recently Relevant to Health Maintenance Results * (ABNORMAL) Lipid Panel with Reflex to Direct LDL (04/07/2025 3:01 PM EDT) Triglycerides 100 <150 mg/dL [facility] Comment:Desirable Triglyceri de: less than 150 mg/dLBorderline High Triglyceride 150-199 mg/dLHigh Triglyceride: 200-499 mg/dLVery High Triglyceride: greater than or equal to 5OO mg/dL Cholesterol 196 <200 mg/dL [facility] Comment:Desirable Cholestero l: less than 200 mg/dLBorderline High Cholesterol: 200-239 mg/dLHigh Cholesterol: greater than 239 mg/dL LDL Cholesterol Calculated 130(H) <100 mg/dL [facility] Comment:Desirable LDL: less than 100 mg/dLNear Optimal/Above Optimal LDL: 110- 129 mg/dLBorderline High LDL: 130-159 mg/dLHigh LDL: 160-189 mg/dLVery High LDL: greater than or equal to 190 mg/dL HDL Cholesterol 46 >40 mg/dL [facility] Comment:Desirable HDL: great er than 40 mg/dL Note: This HDL assay may give artificially low results in patients with liver disease. Blood 04/07/2025 3:01 PM EDT 04/07/2025 3:01 PM EDT us Marisabel Michel MD LAB BLOOD ORDERABLES Final Resul t [facility] [address] [place] [phone] * (ABNORMAL) Hemoglobin A1c (04/07/2025 3:01 PM EDT) Hemoglobin A1c 6.3(H) <6.0 % [facility] Comment:Hemoglobin A1C Refer ence Range Adults: 4.8 - 6.0 % Non diabetic: < 6.0 % Goal: < 7.0 %Additional Action Suggested: > 8.0 %Note: Hemoglobin A1c results are invalid for patients with abnormal amounts of HbF. Blood transfusions may impact the HbA1c concentration in the patient sample. Estimated Average Glucose 134 mg/dL [facility] Comment:eAG = Estimated ave rage glucose which is %A1C expressed asaverage glucose, using the formula of the W1T-SkcxovuGsorfur Glucose study (ADAG), Diabetes Care, Vol.31,#8,Jun. 2007 Blood Venous blood specimen / Unknown 04/07/2025 3:01 PM EDT 04/07/2025 3:01 PM EDT us Marisabel Michel MD LAB BLOOD ORDERABLES Final Resul t [facility] [address] [address] [phone] * BI Mammogram Screening Tomosynthesis Bilateral (03/21/2024 1:10 PM EDT) Anatomical Region Laterality Modality Breast Bilateral Mammography 03/21/2024 1:10 PM EDT Narrative 04/17/2024 6:32 AM EDT [address] [place] [id number] Mammography Report Signed Patient: Radha Kimball MR#: [id number] : 1970 Acct:[id number] Age/Sex: 53 / F ADM Date: 03/21/24 Loc: [facility] Attending Dr: Marisabel Michel MD Ordering Physician: Marisabel Michel MD Results: 1Negative Date of Service: 03/21/24 Follow Up: 1 Year From Orig ina Mammogram Procedure(s): MM tomosynthesis screening BI Accession Number(s): [id number] cc: Marisabel Michel MD EXAMINATION: MM SCREENING [...] signed by Stephanie Garcia MD in OV> 04/17/24628 DD/ 1310 TD/TT: Bass Viol Repairer: Procedure Note Donotuseinterpreter, Image - 04/17/20[facility] [address] [place] [address] Mammography Report Signed Patient: Radha Kimball#: [id number] : 1970Acct:[id number] Age/Sex: 53 / FADM Date: 03/21/24 Loc: [facility] Attending Dr: Marisabel Michel MD Ordering Physician: Marisabel Michel MDResults: 1Negative Date of Service: 03/21/24Follow Up: 1 Year From Orig inal Mammogram Procedure(s): MM tomosynthesis screening BI Accession Number(s): [id number] cc: Marisabel Michel MD EXAMINATION: MM SCREENING [...] signed by Stephanie Garcia MD in OV> 04/17/24628 DD/ 1310 TD/TT: Bass Viol Repairer: Marisabel Michel MD IMG BI PROCEDURES Final Result * Colonoscopy (06/12/2021) Colonoscopy Normal Normal George Lambert MD HEALTH MAINTENANCE Edited Result - Final from Last 3 Months or Most Recently Relevant to Health Maintenance Insurance [employer] [id number] Care Teams Specifications Writer Relationship Specialty Start Date End Date Marisabel Michel MD [address] [place] [phone] PCP - General Family Medicine 09/04/11
--- OUTSIDE RECORDS SUMMARY | 2025-08-28 17:45 | XMS_ITS | Encounter Summary ---
Author Organization [facility] Address [address] [facility] 7t [place] [address] Care Team Providers Care Car Packer Name Role Phone Marisabel Michel MD Primary Care Provider [phone] Reason for Visit * Reason Comments Med Refill Encounter Details Date Type Department Care Team ([facility] st Contact Info) Description 12/11/2024 Refill [facility] [address] [place], [place] [phone] Marisabel Michel MD [address] [place], [place] [phone] Social History Tobacco Use Types Packs/Day Years [...] your housing situation today? I have diane reinsoo 03/29/[address] you li [...] Description 09/05/2025 2:15 PM EDT Office Visit [facility] [address] [place] [id number] Marisabel Michel MD [address] [place] [address] documented as of this encounter Visit Diagnoses Not on filedocumented in this encounter Additional Health Concerns Assessment Noted Time PHQ-9 Depression Total Score: 0 03/29/20 24 3:23 PM EDT documented as of this encounter Care Teams Car Packer Relationship Specialty Start Date End Date Marisabel Michel MD [address] [place] [id number] PCP - General Family Medicine 09/04/11 documented as of this encounter
--- OUTSIDE RECORDS SUMMARY | 2025-08-28 17:45 | XMS_ITS | Patient Health Record ---
Author Organization [facility] Address [address] [place] [address] Care Team Providers Care Hardwood Sawyer Name Role Phone Bindusanjay Marisabel Primary Care Provider Yoni Glover Unavailable [phone] Halle Bustillo Unavailable [phone] Allergies Allergen (clinical drug ingredient) Drug/Non Drug [...] Lab: Notes/Report: HEMOGLOBIN A1C % (HH) 6.3 HEMOGLOBIN A1C (GLYCOHEMOGLO BIN) Reviewed date:08/02/2025 03:37:47 PM Interpretation: Performing Lab: Notes/Report: HEMOGLOBIN A1C % (HH) 6.3 Reason For Referral No Information Medications Medication SIG (Take, Route, Frequency, Duration) Notes Start Date End Date Status Prednisone Not-Takin g Ketotifen Fumarate A ctive Montelukast Sodium A ctive [facility] Ear Wax Removal System Active Proctofoam as needed Active Alendronate Sodium 70 MG 1 tablet 30 minutes before the first food, beverage or medicine of the day with plain water Orally; Duration: 30 day(s) Active Saline Nasal [place] as needed A ctive Meclizine HCl 12.5 MG 2 tablets as neede d Orally Once a day; Duration: 30 day(s) Active SUMAtriptan Succinate Active Calcium 600 + D 600-200 MG-UNIT Orally Active [facility] Jock Itch Active Breo Ellipta 200-25 MCG/INH 1 puff Inhalation Once a day Active Naproxen Active Bismuth Active Ondansetron HCl Acti ve Lisinopril 5 MG 1 tablet Orally Once a day; Duration: 30 day(s) Active PriLOSEC OTC Active Lasix 40 MG 1 tablet Orally Once a day; Duration: 30 days Active ProAir HFA as needed Active Jock Itch 1 % 1 application to affected area Externally Twice a day Active Mupirocin 2 % 1 application Externally Twice a day Active Systane Active Alclometasone Dipropionate Active Vitamin E Active Gabapentin 100 MG Orally Once a day Active Ammonium Lactate 12 % 1 application Externally Twice a day Active Clotrimazole as needed Active Loratadine Allergy Relief Active hydrOXYzine HCl Acti ve Fluconazole 150 MG 1 tablet Orally Once a day Not-Taking Ibuprofen Active Spiriva Respimat Not -Taking Ipratropium-Albuterol Active Flovent HFA Not-Taki ng Ipratropium [place] Active Cyproheptadine as needed Activ e Vitamin C 500 MG Orally Act shirin Docusate Sodium 100 MG 1 capsule as need ed Orally Once a day Active Clotrimazole Active Fluticasone Furoate Active Diclofenac Sodium 1 % USE DIRECTED 2 TIMES A DAY; Duration: 50 Active Gas Relief Active Meloxicam 15 MG 1 tablet Orally Once a day Not-Taking Cetirizine HCl twice a day Act shirin Cetaphil Active Immunizations Vaccine Route Administration Date Status [...] Problem Acquired hammer toe of right foot (5701212934109883) Other hammer toe(s) (acquired), right foot (M20.41) Active confirmed Problem Acquired hammer toe of left foot (9559631930573482) Other hammer toe(s) (acquired), left foot (M20.42) Active confirmed Problem Bilateral atherosclerosis of arteries of lower limbs (disorder) (26458521786499079 ) Atherosclerosis of [place] artery of both lower extremities, with unspecified presence of clinical manifestation (I70.203) Active confirmed Q7(A), Q8(2B), Q9(1B,2 C) Vital Signs Heart Rate 71 /min 05/08/2025 Blood pressure diastolic 69 mm Hg 08/02/2025 Height 5ft in 08/02/2025 Blood pressure systolic 133 mm Hg 08/02/2025 Weight 178 lbs 08/02/2025 BMI 34.76 kg/m2 08/02/2025 Procedures Procedure Date Ordered Date Performed Result Body Sit e 21154-THEOAWE NAIL, 6 OR MORE 10/07/2024 N/A 24544-DIHG SKIN LESIONS, 2 TO 4 10/07/2024 N/A 44303-VYOMKDE NAIL, 6 OR MORE 01/30/2025 N/A 03448- Debride <25 sq cm 01/30/2025 N/A 64443-MWAJ SKIN LESIONS, 2 TO 4 01/30/2025 N/A 58920-KMWEAOT NAIL, 6 OR MORE 05/08/2025 N/A 31119-BLCF SKIN LESIONS, 2 TO 4 05/08/2025 N/A 29892-MJSTFQH NAIL, 6 OR MORE 08/02/2025 N/A 92210-JQRE SKIN LESIONS, 2 TO 4 08/02/2025 N/A Encounters Encounter [facility] Date [facility] [address] [facility]/07/[facility]24 Halle Bustillo Type 2 diabetes mellitus with diabetic polyneuropathy E11.42 and Tinea unguium B35.1 [facility] [address] 01/30/2025 Yoni Bhatt Type 2 diabetes mellitus with diabetic peripheral angiopathy without gangrene E11.51 ; Tinea unguium B35.1 ; Pain in right toe(s) M79.674 ; Pain in left toe(s) M79.675 ; Other hammer toe(s) (acquired), left foot M20.42 ; Other hammer toe(s) (acquired), right foot M20.41 and Skin ulcer of toe of left foot, limited to breakdown of skin L97.521 [place] [id number] [address] [address] 05/08/2025 Yoni Bhatt Atherosclerosis of [place]etm[place] artery of both lower extremities, with unspecified presence of clinical manifestation I70.203 ; Tinea unguium B35.1 ; Pain in right toe(s) M79.674 ; Pain in left toe(s) M79.675 and Skin ulcer of toe of left foot, limited to breakdown of skin L97.[address] [address] 08/02/2025 Yoni Bhatt Atherosclerosis of [place]etm[place] artery of both lower extremities, with unspecified presence of clinical manifestation I70.203 ; Tinea unguium B35.1 ; Pain in right toe(s) M79.674 ; Pain in left toe(s) M79.675 ; Other hammer toe(s) (acquired), left foot M20.42 and Other hammer toe(s) (acquired), right foot M20.[address] [address] 06/07/2025 Yoni Bhatt [address] [address] 04/20/2025 Yoni Bhatt [address] [address] 05/19/2025 Yoni Bhatt Assessments Encounter Date Diagnosis (ICD Code) Assessment Notes Treatment Notes Treatment Clinical Notes Section Notes 10/07/2024 Type 2 diabetes mellitus with diabetic polyneuropathy (ICD-10 - E11.42) 10/07/2024 Tinea unguium (ICD-10 - B35.1) 01/30/2025 Type 2 diabetes mellitus with diabetic peripheral angiopathy without gangrene (ICD-10 - E11.51) Q7(A), Q8(2B), Q9(1B,2C) 05/08/2025 Tinea unguium (ICD-10 - B35.1) 05/08/2025 Atherosclerosis of [place] artery of both lower extremities, with unspecified presence of clinical manifestation (ICD-10 - I70.203) Q7(A), Q8(2B), Q9(1B,2C) 08/02/2025 Tinea unguium (ICD-10 - B35.1) 08/02/2025 Atherosclerosis of [place] artery of both lower extremities, with unspecified presence of clinical manifestation (ICD-10 - I70.203) Q7(A), Q8(2B), Q9(1B,2C) 08/02/2025 Pain in right toe(s) (ICD-10 - M79.674) 05/08/2025 Pain in right toe(s) (ICD-10 - M79.674) 01/30/2025 Tinea unguium (ICD-10 - B35.1) 01/30/2025 Pain in right toe(s) (ICD-10 - M79.674) 08/02/2025 Pain in left toe(s) (ICD-10 - M79.675) 05/08/2025 Pain in left toe(s) (ICD-10 - M79.675) 05/08/2025 Skin ulcer of toe of left foot, limited to breakdown of skin (ICD-10 - L97.521) 08/02/2025 Other hammer toe(s) (acquired), left foot (ICD-10 - M20.42) 01/30/2025 Pain in left toe(s) (ICD-10 - M79.675) 01/30/2025 Other hammer toe(s) (acquired), left foot (ICD-10 - M20.42) 08/02/2025 Other hammer toe(s) (acquired), right foot (ICD-10 - M20.41) 01/30/2025 Other hammer toe(s) (acquired), right foot (ICD-10 - M20.41) Patient Educated with: DIABETIC FOOT CARE INSTRUCTIONS. pdf (DIABETIC FOOT CARE INSTRUCTIONS. pdf) 01/30/2025 Skin ulcer of toe of left foot, limited to breakdown of skin (ICD-10 - L97.521) Response to treatment Nonapplicable Patient Educated with: WOUND CARE INSTRUCTIONS. pdf (WOUND CARE INSTRUCTIONS. pdf) 01/30/2025 Other Plan Of Treatment Pending Test Test Name Order Date 27963-NDEKBLM NAIL, 6 OR MORE 06/02/2017 78065-RSRLTEQ NAIL, 6 OR MORE 09/01/2017 68864-NCIYTSV NAIL, 6 OR MORE 12/22/2017 48080-VUYRVAC NAIL, 6 OR MORE 03/23/2018 62481-KTALKHD NAIL, 6 OR MORE 06/01/2018 01576-BDTWJMP NAIL, 6 OR MORE 10/29/2018 35917-EWELGZX NAIL, 6 OR MORE 08/06/2018 00615-VCQOYCI NAIL, 6 OR MORE 10/07/2024 43461-HSCTCNI NAIL, 6 OR MORE 01/30/2025 61039-XLILJFR NAIL, 6 OR MORE 05/08/2025 47011-PDVMKKV NAIL, 6 OR MORE 08/02/2025 73458-Wiaewtec Plate 08/06/2018 97145-Exoopuib Plate 12/22/2017 64160- Debride <25 sq cm 06/22/2018 89043- Debride <25 sq cm 05/03/2024 15198- Debride <25 sq cm 01/30/2025 49341-HGVPLXM SKIN/TISSUE 02/04/2022 70494-YAMBJPB SKIN/TISSUE 05/12/2022 13326 I&D ABSCESS- SIMPLE,SINGLE 019 20045 I&D ABSCESS- SIMPLE,SINGLE 020 66595- I&D ABSCESS-COMPLICATED,MULTI 08/2018 06995- I&D ABSCESS-COMPLICATED,MULTI 31765-PJBK SKIN LESIONS, 2 TO 4 06/01/20 18 69766-SONG SKIN LESIONS, 2 TO 4 08/06/20 18 83453-IIYG SKIN LESIONS, 2 TO 4 06/02/20 17 27565-MINC SKIN LESIONS, 2 TO 4 03/23/20 18 69499-VFIY SKIN LESIONS, 2 TO 4 12/22/19 18 68047-QECY SKIN LESIONS, 2 TO 4 09/01/20 17 17544-NBOP SKIN LESIONS, 2 TO 4 10/26/20 20 60126-YEKO SKIN LESIONS, 2 TO 4 01/30/20 21 11749-DYYN SKIN LESIONS, 2 TO 4 04/30/20 21 96003-XXGX SKIN LESIONS, 2 TO 4 07/30/20 21 26486-WLBF SKIN LESIONS, 2 TO 4 10/25/20 21 06564-BQGA SKIN LESIONS, 2 TO 4 12/27/19 22 78259-OOOK SKIN LESIONS, 2 TO 4 02/05/20 22 54566-MBKF SKIN LESIONS, 2 TO 4 01/24/20 20 32608-QSNZ SKIN LESIONS, 2 TO 4 04/24/20 20 08753-LPBX SKIN LESIONS, 2 TO 4 07/24/20 20 60298-HDZB SKIN LESIONS, 2 TO 4 02/09/20 19 29108-ACWQ SKIN LESIONS, 2 TO 4 05/10/20 19 22198-KZEE SKIN LESIONS, 2 TO 4 07/26/20 19 46027-LWWI SKIN LESIONS, 2 TO 4 11/08/20 19 21329-CFVR SKIN LESIONS, 2 TO 4 07/01/20 22 27317-WCWY SKIN LESIONS, 2 TO 4 10/29/20 18 55389-RAKP SKIN LESIONS, 2 TO 4 01/31/20 25 54561-JLOL SKIN LESIONS, 2 TO 4 10/07/20 24 49702-PYYZ SKIN LESIONS, 2 TO 4 08/02/20 25 83504-AURL SKIN LESIONS, 2 TO 4 05/08/20 25 Next Appt Details Provider Name:Yoni Bhatt , 11/01/2025 03:15:00 PM, [address] [facility], [address], [place], [address], Insurance Providers Payer Name Payer Address Payer Phone Subscriber Number Group Number Insured Name Patient Relationship to Insured Coverage Start Date Coverage End Date [facility] [employer] Claims [address] [place] [id number] Radha Vera Self - patient is the insured 7 Medical (General) History Medical History History ICD Code Arthritis asthma Cerebral palsy Chicken pox Epilepsy Knee Pain Kidney stones Migraines Paralysis Poor circulation Reflux Surgical History Surgery Date(Month/Year) appendectomy 2008 hand/wrist 1983 leg surgery 1981 Hospitalization History Reason Date(Month/[place] [facility] [place] Urgent Care- Pain in ankle- negetive ult rasound and x-ray 04/2019 ER in [place] 02/2018
== END 2025-08-28 15:39 | disposition home or self-care (01) ==
LOC: HO.HPS 15:22
PROVIDERS: PCP Family Medicine; Visit Provider Internal Medicine Pulmonary Disease
DX: J45.909 Unspecified asthma, uncomplicated (principal); G47.33 Obstructive sleep apnea (adult) (pediatric); Z91.09 Other allergy status, other than to drugs and biological substances; R06.01 Orthopnea
CPT/HCPCS: 99214; G2211

== ENCOUNTER 2025-09-07 14:30 | Outpatient (AMB) | payer OTHER, SELFPAY ==
--- OUTSIDE RECORDS SUMMARY | 2024-07-26 09:30 | XMS_ITS ---
Author Organization [facility] Address [address] [place] [address] Care Team Providers Care [employer] Official Name Role Phone Marisabel Michel Primary Care Provider UnavailYoni Deng Unavailable [phone] Gilbert Akhtar Unavailable [phone] REASON FOR VISIT Skin problem, Painful nail(s) aggrevated by shoes and causing difficulty standing/walking. 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 Assessments Encounter Date Diagnosis (ICD Code) Assessment Notes Treatment Notes Treatment Clinical Notes Section Notes 07/26/2024 Tinea unguium (ICD-10 - B35.1) 07/26/2024 Pain in right toe(s) (ICD-10 - M79.674) 07/26/2024 Pain in left toe(s) (ICD-10 - M79.675) 07/26/2024 Skin disease (ICD-10 - L98.9) 07/26/2024 Type 2 diabetes mellitus with diabetic polyneuropathy (ICD-10 - E11.42) 07/26/2024 Ingrowing nail (ICD-10 - L60.0) 07/26/2024 Non-pressure chronic ulcer of other part of right foot limited to breakdown of skin (ICD-10 - L97.511) Plan Of Treatment Medication Medication Name Sig Start Date Stop Date Notes Extra Depth Diabetic Shoes w ith 3 Pair Custom heat-molded multi-density innersoles for 1 year Dx: Next Appt Details Follow Up: 2 Months, Reason: Provider Name:Yoni Bhatt , 11/01/2025 03:15:00 PM, [address] [facility], [address], [place], [address], Procedure Notes * Category Sub-Category Detail Notes Debride Nail 6-10 Nail debridement Nail debridem ent performed extensively to reduce/remove overall nail length and girth, subungual debris, and necrotic tissue, by manual and electrical means with use of a nail nipper and/or dremel, to more viable healthy nail plate or bed tissue 6-10. Silver nitrate used for any petechial bleeding as necessary. Patient chooses, no pharmaceutical tx (20121) Keratoma Treatment Parring or Cutting o f Benign Hyperkeratotic Lesion(s) 49330 (2-4 Lesions) - The Benign hyperkeratotic lesions, as described above were pared, and/or cut utilizing a sterile #15 blade, tissue nippers, and/or dremel Progress Notes * Radha JACKDOB: 1 (54 yo F)Acc No.[id number]:07/26/2024 Progress Note Patient: Radha DIOP Provider: Aiden Matson DPM :1970 A ge:53 Y S ex:Female Date:07/26/2024 Address:[address] [place] [address] Pcp:Marisbael Michel Subjective: * Chief Complaints: * 1 . Skin problem . 2. Painful nail(s) aggrevated by shoes and causing difficulty standing/walking.. * HPI: S kin problems: Nature: t conrad, aching. Location: [facility] , 1st. Course: u nresolved. Aggravated by: a ny pressure. Treatments: b andaging. Misc: arcadio carter finally received her dm ed shoes 10/07/23. P ainful Nails: Pt States Last PCP Visit: D ate: 0 12/15/2023 F oot Pain: Nature: s harp, brusing, swelling. [facility] Bottom, Midfoot. Onset: u nknown. Aggravated: a ny pressure, standing, walking. * ROS: G eneral/Constitutional: Nausea d enies. V omiting d enies. H shantel Thirst d enies. L oss appetite d enies. C hills d enies. F atigue d enies.?Fever d enies. N ight Sweats d enies. U nexplained weight loss d enies. U nexplained weight gain d enies. H EENTM: Dentures d enies. D izziness d enies. G lasses/contacts d enies. R etinopathy d enies. B lurred/double vision d enies. T MJ?denies. D ischarge/drainage d enies. I mplants d enies. S ore throat d enies. D ental implants d enies. H dez of hearing d enies. D ifficulty chewing/swallowing/speaking d enies. N ose bleeds d enies. S ore mouth d enies. ? R espiratory: On Oxygen d enies. P neumonia/pleurisy d enies.?Bronchitis d enies. E mphysema d enies. C oughing d enies. C ough blood?denies. S hortness of breath d enies. W heezing d enies. C ardiovascular: Pacemaker d enies. M MOLD STAMPER AND REPAIRER d enies. W PW d enies. C HF d enies. H eart attack d enies. S eptal defect d enies. R apid beat d enies. C hest pain d enies. A trial Fib. d enies. M urmur/Palpitations d enies. G astrointestinal: Hemorrhoids d enies. S tomach/Abdominal pain d enies. D ark blood stool d enies. I rritable bowel d enies. C onstipation d enies. D iarrhea d enies. H ematology: Swelling a dmits. C lots d enies. V aricose Veins d enies. B ruising d enies. B leeding problem d enies. G enitourinary: Blood urine d enies. F requent/Painfu/urination/bladder control d enies. K idney stones d enies. I nfection (UTI) d enies. N ephropathy d enies. s ex trans dis (STD) d enies. P rostate d enies. M usculoskeletal: Hammertoes d enies. B unions d enies. B ack Pain d enies. M uscle Cramps/ Resting d enies. M uscle cramps / walking d enies.?Generalized aches and pains d enies. W eakness d enies. I nteg.: Solomon d enies. S cars d enies. C orns/calluses?denies. I ngrown nails d enies. P ainful nails d enies. O pen Sores d enies. R ashes d enies. N eurologic: Difficulty sleeping d enies. B rain disorder d enies. N umbness d enies. B alance trouble a dmits. C onfusion d enies. F ainting/blackouts d enies. T ingling d enies. T remors d enies. * Medical History: Objective: * Vitals: * Examination: D ermatologic: SKIN FINDINGS: Skin exam reveals Keratotic lesion(s) located at, Medial, TA , Plantar, T1, T2, T3, Dorsal, PIPJ, T3, T9. ULCER: LOCATION--lateral t7 pipj, SIZE, 3mm X 3mm X 2mm, BASE, granular, RIM, hyperkeratotic, UNDERMINING, absent, TRACKING, Full thickness breakdown of skin, DRAINAGE, serosanguineous, mild, NECROTIC TISSUE, loosely-adherent, yellow slough, MALODOR, absent, CALOR, absent, ERYTHEMA, absent, PAIN ON PALPATION, present. N ails: NAILS are: E longated, overgrown, dystrophic, lytic, greater than 3mm thick, discolored and friable with crumbly malodorous subungual debris, with dull to no pain on palpation due to neuropathy, 1-5 B/L. V ascular: DP PULSES (B): 0/4, B/L. PT PULSES (B): 0/4, B/L. CAPILLARY FILL TIME: delayed, all digits, B/L. TROPHIC CONDITION-TEXTURE/ELASTICITY/TURGOR/HAIR GROWTH (B):? decreased, B/L, dystrophic (thin,shiny). TEMPERTURE GRADIENT (C): decreased, cool to cold, proximal to distal, B/L. PIGMENTATION: brawny, B/L. EDEMA (C): 3/4, B/L, Feet, Ankle(s), Leg(s). TELANGECTASIA: moderate. N eurological: SENSORY: N eurological exam demonstrates mild pop of tamica ankles. O rthopedic: FOOT MORPHOLOGY: Equinus knee extended, Equinus knee flexed, Dropfoot right more advanced than left. DIGITAL DEFORMITIES: Digital contracture, PIPJ, 2-5 B/L, incompl-reducable with WB, or to push-up test, no over, nor underlapping. Assessment: * Assessment: 1. T inea unguium - B35.1 (Primary) 2 . P ain in right toe(s) - M79.674? 3. P ain in left toe(s) - M79.675 4 . S kin disease - L98.9? 5. T ype 2 diabetes mellitus with diabetic polyneuropathy - E11.42 6. I ngrowing nail - L60.0 7 . N on-pressure chronic ulcer of other part of right foot limited to breakdown of skin - L97.511 Plan: * Treatment: * Procedures: D ebride Nail 6-10: Nail debridement N ail debridement performed extensively to reduce/remove overall nail length and girth, subungual debris, and necrotic tissue, by manual and electrical means with use of a nail nipper and/or dremel, to more viable healthy nail plate or bed tissue 6-10. Silver nitrate used for any petechial bleeding as necessary. Patient chooses, no pharmaceutical tx (42588). K eratoma Treatment: Parring or Cutting of Benign Hyperkeratotic Lesion(s) 1 1056 (2-4 Lesions) - The Benign hyperkeratotic lesions, as described above were pared, and/or cut utilizing a sterile #15 blade, tissue nippers, and/or dremel. * Procedure Codes: 1 1721 DEBRIDE NAIL, 6 OR MORE, Modifiers: XS , 63801 TRIM SKIN LESIONS, 2 TO 4, Modifiers: XS * Follow Up: 2 Months * Images: * The named appointment provid er may or may not be the originator of this progress note, and it is not deemed complete until electronically signed by the appointment provider. Sign off status: Pending * Provider: Aiden Matson DPM Date: 0 07/26/2024 Generated for eDny lou/Klaudia/eTransmitting on: 1 06:23 PM EDT History and Physical Notes * HPI (History of Present Illness) Category Sub-Category Detail Notes Category Not es Painful Nails Pt States Last PCP Visit: Date:: 12/15/2023 Skin problems Nature: tender, aching Location: Left , 1st Course: unresolved Aggravated by: any pressure Treatments: bandaging Misc: pt finally received her dm ed shoes 10/07/23 Foot Pain Nature: sharp, brusing, swelling Location: RIGHT, Bottom, Midfo ot Onset: unknown Aggravated: any pressure, standi ng, walking Examination Category Sub-Category Detail Notes Category Not es Neurological SENSORY: Neurological exa m demonstrates mild pop of tamica ankles Dermatologic SKIN FINDINGS: Skin exam reveal s Keratotic lesion(s) located at, Medial, TA , Plantar, T1, T2, T3, Dorsal, PIPJ, T3, T9 ULCER: LOCATION--lateral t7 pipj, SIZE, 3mm X 3mm X 2mm, BASE, granular, RIM, hyperkeratotic, UNDERMINING, absent, TRACKING, Full thickness breakdown of skin, DRAINAGE, serosanguineous, mild, NECROTIC TISSUE, loosely-adherent, yellow slough, MALODOR, absent, CALOR, absent, ERYTHEMA, absent, PAIN ON PALPATION, present Orthopedic FOOT MORPHOLOGY: Equinus knee ex tended, Equinus knee flexed, Dropfoot right more advanced than left DIGITAL DEFORMITIES: Digital contracture , PIPJ, 2-5 B/L, incompl-reducable with WB, or to push-up test, no over, nor underlapping Vascular DP PULSES (B): 0/4, B/L PT PULSES (B): 0/4, B/L CAPILLARY FILL TIME: delayed, all digits , B/L TEMPERTURE GRADIENT (C): decreased, cool to cold, proximal to distal, B/L TROPHIC CONDITION-TEXTURE/ELASTICITY/TURGOR/HAIR GROWTH (B): decreased, B/L, dystrophic (thin,shiny) EDEMA (C): 3/4, B/L, Feet, Ankl e(s), Leg(s) TELANGECTASIA: moderate PIGMENTATION: brawny, B/L Nails NAILS are: Elongated, overg rown, dystrophic, lytic, greater than 3mm thick, discolored and friable with crumbly malodorous subungual debris, with dull to no pain on palpation due to neuropathy, 1-5 B/L
--- OUTSIDE RECORDS SUMMARY | 2024-12-30 08:00 | XMS_ITS ---
Author Organization [facility] Address [address] [place] [address] Care Team Providers Care Booster Assembler Name Role Phone Marisabel Michel Primary Care Provider UnavailYoni Deng Unavailable [phone] Halle Bustillo Unavailable [phone] Castro Encounters Encounter Location Date Provider Diagnosis [address] [address] 12/30/2024 Halle Bustillo Plan Of Treatment Next Appt Details Provider Name:Yoni Bhatt , 11/01/2025 03:15:00 PM, [address] [place] [address], [phone], Progress Notes * Radha JACKDOB: [birth year] (54 yo F)Acc No.[id number]:12/30/2024 Progress Note Patient: Radha DIOP Provider: Sherwin Bustillo DPM :1970 A ge:54 Y S ex:Female Date:12/30/2024 Address:[address] [place] [address] Pcp:Marisabel Michel Subjective: * Chief Complaints: * [...] DPM Date: 0 12/30/2024 Generated for Deny May on: 1 06:25 PM EDT
--- OUTSIDE RECORDS SUMMARY | 2025-03-03 05:30 | XMS_ITS ---
Author Organization [facility] Address [address] [place] [address] Care Team Providers Care Starch Mangle Tender Name Role Phone Marisabel Michel Primary Care Provider UnavailYoni Deng Unavailable [phone] Halle Bustillo Unavailable [phone] REASON FOR VISIT Seen Sooner Encounters Encounter Location Date Provider Diagnosis [address] [address] 03/03/2025 Halle Bustillo Plan Of Treatment Next Appt Details Provider Name:Yoni Bhatt , 11/01/2025 03:15:00 PM, [address] [place] [address], [phone], Progress Notes * Radha JACKDOB: [birth year] (54 yo F)Acc No.[id number]:03/03/2025 Progress Note Patient: Radha DIOP Provider: Sherwin Bustillo DPM :1970 A ge:54 Y S ex:Female Date:03/03/2025 Address:[address] [place] [address] Pcp:Marisabel Michel Subjective: * Chief Complaints: * [...] 03/03/2025 Generated for Deny May on: 1 06:24 PM EDT
--- OUTSIDE RECORDS SUMMARY | 2025-03-24 06:00 | XMS_ITS ---
Author Organization [facility] Address [address] [place] [address] Care Team Providers Care Chinese Instructor Name Role Phone Marisabel Michel Primary Care Provider UnavailYoni Deng Unavailable [phone] Halle Bustillo Unavailable [phone] Encounters En[facility] [address] 03/24/2025 Halle Bustillo Plan Of Treatment Next Appt Details Provider Name:Yoni Bhatt , 11/01/2025 03:15:00 PM, [address] [place] [address], [place], [phone], Progress Notes * Radha JACKDOB: 1 (54 yo F)Acc No.[id number]:03/24/2025 Progress Note Patient: Gaurav DE ANDA Radha Provider: Sherwin Bustillo DPM :1970 A ge:54 Y S ex:Female Date:03/24/2025 Address:[address] [place] [address] Pcp:Marisabel Michel Subjective: * Chief Complaints: * [...] 0 03/24/2025 Generated for Deny May on: 06:25 PM EDT
--- OUTSIDE RECORDS SUMMARY | 2025-09-05 14:15 | XMS_ITS | Encounter Summary ---
Author Organization [employer] Address [address] [facility] [address] [place] [address] Care Team Providers Care Biometrics Analyst Name Role Phone Marisabel Michel MD Primary Care Provider [phone] Encounter Details Date Type Department Care Team ([facility] st Contact Info) Description 09/05/2025 2:15 PM EDT Office Visit [facility] [address] [place], [place] [phone] Marisabel Michel MD [address] [place], [place] [phone] Primary hypertension (Primary Dx); Prediabetes; Encounter for immunization Social History Tobacco Use Types Packs/Day Years [...] Sign Reading Time Taken Comments Blood Pressure 109/60 09/05/2025 2:32 PM EDT Pulse 80 09/05/2025 2:32 PM EDT Temperature 36.2 C (97.1 F) 09/05/2025 2:32 PM EDT Respiratory Rate 20 09/05/2025 2:32 PM EDT Oxygen Saturation - - Inhaled Oxygen Concentration - - Weight 79.4 kg (175 lb) 09/05/2025 2:32 PM EDT Height - - Body Mass Index 34.18 06/05/2025 2:08 PM EDT documented in this encounter Plan of Treatment Not on file documented as of this encounter Visit Diagnoses Diagnosis Primary hypertension- Primary Unspecified essential hypertension Prediabetes Other abnormal glucose Encounter for immunization documented in this encounter Additional Health Concerns Assessment Noted Time PHQ-9 Depression Total Score: 5 06/05/20 25 3:36 PM EDT documented as of this encounter Care Teams Biometrics Analyst Relationship Specialty Start Date End Date Marisabel Michel MD [address] [place] [address] PCP - General Family Medicine 09/04/11 documented as of this encounter
--- NOTE | 2025-09-07 14:35 | A.OFFVIS_ITS ---
Intake Visit Reasons: INJ- Right knee OA, last inj 06/08/25 Intake Note: Radha is a 54 year old female who presents today for a follow up of her right knee OA, last injection 06/08/25. Patient reports she is wanting an injection for both of her knee if possible. Allergies budesonide (From SYMBICORT) Allergy (Intermediate, Verified 09/07/25 14:36) TREMOR formoterol (From SYMBICORT) Allergy (Intermediate, Verified 09/07/25 14:36) TREMOR sulfamethoxazole (From BACTRIM) Allergy (Intermediate, Verified 09/07/25 14:36) RASH trimethoprim (From BACTRIM) Allergy (Intermediate, Verified 09/07/25 14:36) RASH Sulfa (Sulfonamide Antibiotics) Allergy (Unknown, Verified 09/07/25 14:36) Unknown Symbicort Allergy (Unknown, Uncoded 05/18/25 08:33) Unknown HPI HPI INJ- Right knee OA, last inj 06/08/25: Details: Ms. Chuy Vera is a 54-year-old female who presents to the office today for bilateral chronic knee pain due to osteoarthritis. She is mainly wheelchair- bound due to cerebral palsy. She is looking to received cortisone injections in both knees. Her last cortisone injection was in the right knee on 06/08/2025 which gave her relief. REPLACED BY [facility] Medical History Wheelchair dependence Edema of both lower extremities Hx of cerebral palsy GERD (gastroesophageal reflux disease) Asthma Alopecia Surgical History History of surgery Hx of appendectomy History of esophagogastroduodenoscopy (EGD) Hx of colonoscopy Hx of lithotripsy Social History Household Members: Family Housing: House Alcohol intake: never Patient Tobacco Use Status: Never used Tobacco service: No Current occupational status: disabled Review of Systems Const All systems reviewed & are unremarkable except as noted in HPI and below Physical Exam Const General: cooperative and no acute distress Resp Effort & Inspection: normal respiratory effort and able to speak in complete sentences Extrem Other: Rigth knee no ecchymosis or erythema. Mild joint effusion. No tenderness to palpation to the medial or lateral joint lines. ROM is 45 to 90 degrees. NVI. Office Procedures AMB Joint Injection/Aspiration Joint Injection/Aspiration Primary Site: right knee Secondary Site: left knee Prep: site was prepped using aseptic technique, ethochloride spray was applied and injection warnings given Injected: 40 mg of, with 3 mL of, 1% plain lidocaine, 0.25% bupivacaine, in the joint and decadron Approach Used: anterolateral Procedure: The patient tolerated the procedure well, but had some pain with the injection and there was some relief with the local anesthesia Coding - Bilateral Large Joint Procedure code (CPT) selection complete Assessment & Plan Assessment & Plan (1) Osteoarthritis of left knee: Code(s): M17.12 - Unilateral primary osteoarthritis, left knee Category: Medical (2) Osteoarthritis of right knee: Code(s): M17.11 - Unilateral primary osteoarthritis, right knee Category: Medical Plan The patient was offered a cortisone injection in bilateral knees. The patient was explained the risks, benefits, and alternatives to receiving this injection. After receiving consent for the injection, the patient had the procedure done while in the office today. The patient tolerated the procedure well with no complications. Follow up will be PRN, sooner if needed. Coding Level of Care Code Est Pt Level 3 (44963) Diagnoses Osteoarthritis of left knee M17.12 Osteoarthritis of right knee M17.11 CPT Codes Coding - - Bilateral Large Joint: 47587 - Bilateral Large Joint ([id number])
--- OUTSIDE RECORDS SUMMARY | 2025-09-07 18:23 | XMS_ITS | Data Portability ---
Author Organization [employer] [facility], 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 I have reviewed and agree with the Assessment and Plan as documented by the Livestock Feeder. Patient given the opportunity to ask questions. Our service contacted for an assessment of: Hematuria and back pain radiating to the right flank. As per above, patient with approximately 24 hours of Abdominal and back pain radiating to the right flank. Denies dysuria, frequency. does have a history of UTIs. Denies fever, chills . Per business system consultant on the scene, Vital signs are stable [...] assessment and plan as documented by the business system consultant. I provided real-time medical direction for this [...] other concerns. paysola Not available 03/26/2025 20:06:52 06/13/2025 06/13/2025 I have reviewed and agree with the assessment and plan as documented by the business system consultant. I provided real-time medical direction for this encounter and was immediately available to provide additional phone-based assistance as needed. HPI: [id number] presenting with urinary symptoms x 1 day, hx of previous UTIs. No fever no abdominal pain.Allergy to Bactrim. Current symptoms is incontinence. O/E: Vitals at her baseline, no fever. Exam otherwise unremarkable per the business system consultant UA positive for leuks/nitrites Impression/Plan: Suspect UTI, will initiate Macrobid. For urine culture in follow up. Red flags and return precautions discussed. We discussed the diagnostic uncertainty of home [...] or any other concerns. paysola Not available 06/13/2025 19:45:50 Plan of Treatment Reminders Order Date Submit Date Provider Last Modified By Organization Details Last Modified Time Details Appointments None recorded. Lab urinalysis, dipstick 2024 025 [facility], [address] [place] [address], [id number] 20:04:42 culture, urine 2024 025 LAUREL [facility] (Centralized Electronic Ordering - All Locations), Patient Can Go To The Location Of Their Choice, [id number] 5 20:06:02 rapid SARS CoV 2 Ag, QL IA, respiratory specimen 2024 025 [facility] [place], [address] [place] [address], [id number] 20:22:13 rapid flu (A+B) 2024 025 [facility] [place], [address] [place] [address], [id number] 20:22:27 rapid strep group A, throat 2024 025 [facility] [place], [address] [place] [address], [id number] 20:22:43 urinalysis, dipstick 2024 025 [facility] [place], [address] [place] [address], [id number] 21:03:36 culture, urine 2024 025 LAUREL [facility] (Centralized Electronic Ordering - All Locations), Patient Can Go To The Location Of Their Choice, [address] 12:07:57 Referral None recorded. Procedures None recorded. Surgeries None recorded. Imaging None recorded. Medication Orders nitrofurant oin macrocrysta l 100 mg capsule 2024 025 [facility] #[id number], [address] [facility], [place], [address], 19:45:55 Macrobid 100 mg capsule 2024 025 [id number], [address] [place], [address], 5 22:11:52 ipratropium 0.5 mg-albutero l 3 mg (2.5 mg base)/3 mL nebulizatio n soln 2024 025 [id number] [address] [place], [address], 5 20:06:10 albuterol sulfate 2.5 mg/3 mL (0.083 %) solution for nebulizatio n 2024 025 [id number] [address] [place], [address], 5 20:06:11 ipratropium 0.5 mg-albutero l 3 mg (2.5 mg base)/3 mL nebulizatio n soln 2024 025 [id number], [address] [place] [address], [address], 5 20:06:10 prednisone 10 mg tablet 2024 025 [id number] [address] [place], [address], 5 20:08:18 levofloxaci n 500 mg tablet 2024 025 [facility] #[id number], [address] [place], [address], 5 19:07:37 levofloxaci n 500 mg tablet 2024 025 [facility] [address] [place], [address], 5 19:07:36 cephalexin 500 mg capsule 2023 024 [employer] [facility]acy #[id number], [address] [place], [address], 20:10:17 ceftriaxone 1 gram solution for injection 2023 024 [facility] #[id number], [address] [place], [address], 19:04:48 lactated Ringers intravenous solution 2023 024 [employer]acy #[id number], [address] [place], [address], 19:04:48 Patient TargetsNo targets recorded. Patient InstructionsNo instructions recorded. Reason for Referral None Reported. Results Created Date Observation Date Name Description Value Unit Range Abnormal Flag Note LastModifiedBy Organization Detail LastModifiedTime 06/26/2006/28/2024 URINE CULTU RE, ROUTI NE urine culture, routine Final report Not Available [facility] ([facility]) [address] [place], [address], 06/28/2024 08:08:50 06/26/20 24 06/28/2024 URINE CULTU RE, ROUTI NE result 1 COMMEN T Mixed uroge nital rimma 50,00 0-100 ,000 colon y formi ng units per mL Not Available [facility] ([facility]) [address] [place], [address], 06/28/2024 08:08:50 03/16/20 25 03/20/2025 URINE CULTU RE, ROUTI NE urine culture, routine Final report abnormal Not Available [facility] ([facility]) [address] [place], [address], 03/20/2025 14:07:03 03/16/20 25 03/20/2025 URINE CULTU [...] ng units per mL Not Available [facility] ([facility]) [address] [place], [address], 03/20/2025 14:07:03 03/16/20 25 03/20/2025 URINE CULTU [...] ng units per mL Not Available [facility] ([facility]) [address] [facility], [place], [address], 03/20/2025 14:07:03 03/16/20 25 03/20/2025 URINE CULTU [...] im/Spicer lfa S S Not Available [facility] ([facility]) [address] [place], [address], 03/20/2025 14:07:03 06/13/20 25 06/17/2025 URINE CULTU RE, UROLO GY ROSLYN P urine culture, urology workup Final report abnormal Not Available [facility] ([facility]) [address] [facility], [place], [address], 06/17/2025 08:06:42 06/13/2006/17/2025 URINE CULTU RE, UROLO GY ROSLYN P result 1 Klebsi laura pneumo niae abnormal Cefaz hira [...] ng units per mL Not Available [facility] ([facility]) [address] [place], [address], 06/17/2025 08:06:42 06/13/2006/17/2025 URINE CULTU RE, UROLO GY ROSLYN P result 2 Proteu s mirabi lis abnormal Cefaz hira with an SRIRAM <=16 [...] ng units per mL Not Available [facility] ([facility]) [address] [facility], [place], [address], 06/17/2025 08:06:42 06/13/2006/17/2025 URINE CULTU RE, UROLO GY ROSLYN P antimicrobia l susceptibili ty Commen t S = Susce ptibl e; I = Inter media te; R = Resis tant P = Posit shirin; N = Negat shirin MICS are expre ssed in micro grams per mL Antib iotic RSLT# 1 RSLT# 2 RSLT# 3 RSLT# 4 Amoxi cilli n/Cla vulan ic Acid S S Ampic illin S S Cefaz hira S S Cefep anneliese S S Cefox itin S S Cefpo doxim e S S Ceftr iaxon e S S Cipro floxa sam S S Ertap enem S S Genta micin S S Levof loxac in S S Merop enem S S Nitro furan toin R R Piper acill in/Ta zobac gamble S S Tetra cycli ne R R Tobra mycin S S Trime thopr im/Spicer lfa S S Not Available [facility] ([facility]) [address] [facility], [place], [address], 06/17/2025 08:06:42 Result Notes None recorded. Problems Name Problem SNOMED Code Status Onset Date Resolution Date Notes Provider Name and Address Organization Details Recorded Time Asthma 606606856 Active 025 Chhaya Lovett MD [address] [place] [address],[address], [place], [address] , [facility] - [place], [employer] 03/26/2025 20:06:52 Problem Notes None recorded. Medical Equipment None Reported. Allergies Allergen ID Allergen Name Allergen Category Reaction Reaction Severity Criticality Documentation Date Start Date Code Code System Note Provider Name and Address Organization Details Recorded Time 1866 Bactrim medicatio n Not available Not available Not available 01/02/2023 39559 9 RxNorm Not Available [facility] - production 17:39:26 1867 Symbicort medicatio n Not available Not available Not available 01/02/2023 21140 8 RxNorm Not Available [facility] - production 17:39:26 Medications Name Sig Start Date Stop Date Status Note LastModified by Organization Details LastModified Time furosemide 40 mg tablet TOME 1 TABLETA POR V A ORAL TODOS LOS D active Not Available Not Available No t Available clotrimazol e 10 mg leonardo JAYDE VECES AL D A active Not Available Not Available No t Available terconazole 0.4 % vaginal cream INSERT 1 APPLICATO RFUL BY VAGINAL DAILY X7 DAYS AT BEDTIME ALSO APPLY AROUND THE VULVAR AREA active Not Available Not Available No t Available nystatin 100,000 unit/mL oral suspension SWISH AND SWALLOW 5MLS 4 TIMES DAILY FOR 10 DAYS active Not Available Not Available No t Available prednisone 10 mg tablet TAKE 5 [...] Not Available Not Available No t Available azithromyci n 250 mg tablet TAKE 2 TABLETS BY MOUTH DAY 1 THEN TAKE 1 TABLET DAILY FOR 4 MORE DAYS active Not Available Not Available No t Available fluconazole 150 mg tablet TAKE 1 TABLET BY MOUTH 1 TIME FOR 1 DOSE MAY REPEAT IN 1 WEEK IF STILL SYMPTOMAT IC active Not Available Not Available No t Available meloxicam 15 mg tablet TOME 1 TABLETA POR V A ORAL TODOS LOS D active Not Available Not Available No t Available prednisone 20 mg tablet TAKE 2 TABLETS BY MOUTH ONCE DAILY WITH FOOD OR MILK active Not Available Not Available No t Available alendronate 70 mg tablet TAKE 1 TABLET BY MOUTH IN THE MORNING ONCE WEEKLY AT LEAST 30 MINS BEFORE FIRST FOOD, BEVERAGE, MED active Not Available Not Available No t Available alclometaso ne 0.05 % topical cream APLIQUE AL ARNALDO AFECTADA TOPICALLY TO ARMS AND AXILA active Not Available Not Available No t Available lactated Ringers intravenous solution Inject 500 mL by intraveno us route. 2023 active Not Available Not Available Not Avai lable sumatriptan 50 mg tablet TOME MARIAH TABLETA POR VIA ORAL TODOS LOS LOVELL NEEDED active Not Available Not Available No t Available ciprofloxac in 250 mg tablet TOME 1 TABLETA POR V A ORAL DOS VECES AL D A POR 3 D active Not Available Not Available No t Available ciprofloxac in 500 mg tablet TOME MARIAH TABLETA CADA 12 HORAS POR 7 D active Not Available Not Available No t Available doxycycline monohydrate 100 mg tablet TOME 1 TABLETA POR V A ORAL DOS VECES AL D A POR 10 D active Not Available Not Available No t Available cefadroxil 500 mg capsule Take 2 capsules every day by oral route for 5 days. 06/30 completed Not Available Not Available Not Available ceftriaxone 1 gram solution for injection [...] ONCE DAILY active Not Available Not Available No t Available amitriptyli ne 10 mg tablet TOME 1 TABLETA POR [...] 7 DAYS. active Not Available Not Available No t Available erythromyci n 5 mg/gram (0.5 %) eye ointment APPLY 0.5 INCH TO AFFECTED EYE(S) 4 TIMES DAILY FOR 10 DAYS active Not Available Not Available No t Available ferrous sulfate 325 mg (65 mg iron) tablet TOME 1 TABLETA POR V A ORAL CADA DOS D active Not Available Not Available No t Available nitrofurant oin macrocrysta l 100 mg capsule TOME 1 C PSULA POR V A ORAL CADA 12 HORAS POR 7 D active Not Available Not Available No t Available triamcinolo ne acetonide 0.1 % topical ointment APPLY TO LEGS DOS VECES AL D A CUANDO SEA NECESARIO FOR FLARES active Not Available Not Available No t Available nystatin 100,000 unit/gram topical cream APLIQUE AL ARNALDO AFECTADA DOS VECES AL D A active Not Available Not Available No t Available triamcinolo ne acetonide 0.025 % topical ointment APPLY TO LEGS 2X DAILY NEEDED FOR PRURITIS, DECREASE TO DAILY/KULDEEP RY OTHER DAY SYMPTOMS IMPROVE active Not Available Not Available No t Available docusate sodium 100 mg capsule TOME 1 C PSULA POR V A ORAL DOS VECES AL D A active Not Available Not Available No t Available bismuth subsalicyla te 262 mg chewable tablet TOME DOS TABLETAS POR V A ORAL CUATRO VECES AL D A CUANDO SEA NECESARIO active Not Available Not Available No t Available omeprazole 20 mg capsule,del ayed release TAKE 1 CAPSULE BY MOUTH BEFORE BREAKFAST AND BEFORE EVENING MEAL. DO NOT CRUSH OR CHEW. active Not Available Not Available No t Available Banophen 25 mg capsule TAKE 2 CAPSULES BY MOUTH EVERY 6 HOURS active Not Available Not Available No t Available pseudoephed rine 30 mg tablet TOME DOS TABLETAS POR V A ORAL CADA OCHO HORAS POR 10 D active Not Available Not Available No t Available montelukast 10 mg tablet TOME 1 TABLETA POR V A ORAL TODOS LOS D active Not Available Not Available No t Available hydroxyzine HCl 25 mg tablet TAKE 1 TABLET (25 MG) BY MOUTH EVERY 8 (EIGHT) HOURS IF NEEDED FOR ITCHING OR ALLERGIES . active Not Available Not Available No t Available ammonium lactate 12 % topical cream APPLY TO LEGS EVERY DAY active Not Available Not Available No t Available lisinopril 5 mg tablet TAKE 0.5 TABLET (2.5 MG) BY MOUTH IN THE MORNING. active Not Available Not Available No t Available mupirocin 2 % topical ointment APLIQUE AL ARNALDO AFECTADA JAYDE VECES AL D A POR 10 D THEN CUANDO SEA NECESARIO FOR FLARES active Not Available Not Available No t Available furosemide 20 mg tablet TOME MARIAH TABLETA POR V A ORAL TODOS LOS D active Not Available Not Available No t Available gabapentin 100 mg capsule TAKE 1 CAPSULE BY MOUTH AT BEDTIME. MAY TAKE 2 CAPSULES IF PAIN RELIEF IS INADEQUAT E. active Not Available Not Available No t Available levofloxaci n 500 mg tablet TAKE 1 TABLET EVERY 24 HOURS BY ORAL ROUTE active Not Available Not Available No t Available ondansetron 4 mg disintegrat ing tablet TOME MARIAH TABLETA POR V A ORAL CADA OCHO HORAS CUANDO SEA NECESARIO PARA LAS N USEAS Y EL V PETRA active Not Available Not Available No t Available fluticasone propionate 50 mcg/actuati on nasal spray,suspe nsion USE 1-2 SPRAYS IN EACH NOSTRIL ONCE PER DAY. SHAKE GENTLY. CLEAN TIP AND REPLACE CAP. active Not Available Not Available No t Available doxycycline hyclate 100 mg tablet TAKE ONE TABLET ORALLY 2 TIMES A DAY FOR 5 DAYS active Not Available Not Available No t Available ipratropium bromide 0.02 % solution for inhalation USE 1 VIAL VIA NEBULIZER EVERY 6 HOURS NEEDED FOR FOR WHEEZING active Not Available Not Available No t Available amoxicillin 875 mg-potassiu m clavulanate 125 mg tablet TOME 1 TABLETA POR V A ORAL CADA 12 HORAS active Not Available Not Available No t Available Ventolin HFA 90 mcg/actuati on aerosol inhaler TOME DOS INHALACIO ALISON POR VIA ORAL CADA CUATRO HORAS CUANDO SEA NECESARIO active Not Available Not Available No t Available cholecalcif ramesh (vitamin D3) 25 mcg (1,000 unit) capsule TOME 1 C PSULA POR V A ORAL TODOS LOS D active Not Available Not Available No t Available ciclopirox 0.77 % topical cream APLIQUE AL AREA AFECTADA DOS VECES AL MYAH active Not Available Not Available No t Available Saline Nasal 0.65 % spray aerosol ADMINISTE R 1 SPRAY INTO EACH NOSTRIL IF NEEDED FOR CONGESTIO N. active Not Available Not Available No t Available nitrofurant oin monohydrate /macrocryst als 100 mg capsule TOME 1 C PSULA POR V A ORAL EN LA MA QUYEN AND AL ACOSTARSE POR 5 D active Not Available Not Available No t Available Flovent HFA 220 mcg/actuati on aerosol inhaler TOME DOS INHALACIO ALISON POR V A ORAL DOS VECES AL D A active Not Available Not Available No t Available Alaway 0.025 % (0.035 %) eye drops INSTILL 1 DROP INTO THE AFFECTED EYE(S) TWICE A DAY 50 active Not Available Not Available No t Available diclofenac 1 % topical gel USE DIRECTED 2 TIMES A DAY active Not Available Not Available No t Available Breo Ellipta 200 mcg-25 mcg/dose powder [...] 5 DAYS active Not Available Not Available No t Available Vitals Date Recorded Body temperature Oxygen saturation Oxygen saturation in Arterial blood by Pulse oximetry Respiratory rate Heart rate Systolic And Diastolic Provider Name and Address Organization Details Last Updated DateTime 5 97.6 [degF] 95 % 95 % 18 /min 61 /min 134/78 mm[Hg] Not Available [employer] 5 19:04:46 Date Recorded Heart rate Oxygen saturation Oxygen saturation in Arterial blood by Pulse oximetry Body weight Body temperature Respiratory rate Body height Systolic And Diastolic Provider Name and Address Organization Details Last Updated DateTime 5 69 /min 94 % 94 % 6803.88 g 98.1 [degF] 16 /min 160.02 cm 140/85 mm[Hg] Not Available [employer] 5 20:01:40 Date Recorded Oxygen saturation Oxygen saturation in Arterial blood by Pulse oximetry Heart rate Respiratory rate Body temperature Systolic And Diastolic Provider Name and Address Organization Details Last Updated DateTime 5 99 % 99 % 79 /min 16 /min 98.2 [degF] 148/90 mm[Hg] Not Available [employer] 5 19:10:15 Date Recorded Body temperature Respiratory rate Oxygen saturation Oxygen saturation in Arterial blood by Pulse oximetry Heart rate Systolic And Diastolic Provider Name and Address Organization Details Last Updated DateTime 4 99.2 [degF] 16 /min 97 % 97 % 106 /min 137/74 mm[Hg] Not Available [employer] 4 18:48:52 Date Recorded Heart rate Body temperature Respiratory rate Oxygen saturation Oxygen saturation in Arterial blood by Pulse oximetry Systolic And Diastolic Provider Name and Address Organization Details Last Updated DateTime 4 90 /min 97.6 [degF] 16 /min 96 % 96 % 90/63 mm[Hg] Not Available [facility] 4 18:31:49 Social History None recorded. Functional Status None recorded. Mental Status None recorded. Family History Nothing Reported. Medical History No medical history recorded. Gynecological HistoryNo gynecological history recorded. Obstetrics History GPAL:G 0 P 0 0 0 0 Past Encounters Encounter ID Performer Location Encounter Start Date Encounter Closed Date Diagnosis/Indication Diagnosis SNOMED-CT Code Diagnosis ICD10 Code Diagnosis IMO Codes Diagnosis Note [id number] Marilee Boo MD [facility] [address] [place] [id number] 04/26/2022 12:48:38 07/22/2022 11:34:29 Acute urinary tract infection 993028659 N39.0 51 year old female being evaluated for 2 days of dysuria and bilateral flank pain. Per data gathered by business system consultant, patient with normal vital signs, able to tolerate PO, with positive urine dip. Reports last UTI was 3 months ago, felt the same as current symptoms, and was treated with ciprofloxa sam.Will send urine for culture, and empiricall y treat as uncomplica micki with Cipro 250 mg BID x 3 days. [id number] Megan Willard MD [facility] [address] [place] [id number] 08/23/2022 15:32:23 08/25/2022 14:41:53 COVID-19 [id number] U07.1 COVID (+). mild tachypnea and cough +wheeze. no increased WOB. prescribed paxlovid, deferring oral steroids given unclear benefit in context of covid. recommende d continued adherence to maintenanc e inhalers. [id number] Kenan Hart MD [facility] - [facility] [address] [place] [id number] 0 12/31/2022 11:46:11 01/02/2023 10:01:19 Increased frequency of urination 315052147 R35.0 This 52-year-ol d female called her PCP today complainin g of dysuria, urinary frequency, back and pelvic pain for several days. [facility] has a history of a neurogenic bladder and frequent UTIs. Her U/A was negative. I ordered a U/C to be sent to [facility]. She will follow-up with her PCP. The patient agreed with this plan. [id number] [facility] [address] [place] [phone] 01/13/2023 18:35:24 01/15/2023 16:38:46 Pruritus of vagina 06055900 L29.3 Reports that she was seen earlier by [facility] for urinary symptoms. She had a negative urine dip but the culture grew back bacteria. She was treated with Cipro for a week. She continues to have symptoms but now reports vaginal itching. UA reviewed and no evidence of UTI. Will send this for culture, although doubt bacterial process. Will treat empiricall y for vaginal candidiasi s. [id number] Neisha Mario MD [facility] [address] [place] [id number] 02/04/2023 20:31:29 02/06/2023 11:05:02 Respiratory tract congestion and cough 699141019 R05.9 [id number] Geena Slater MD [facility] - [facility] [address] [place] [id number] 02/12/2023 16:08:06 02/16/2023 12:55:21 Cellulitis of lower limb [id number] L03.119 right lower leg s/p animal scratch [...] to call for re eval at once. [id number] Chhaya Lovett MD [facility] [address] [place] [id number] 04/20/2023 16:36:23 04/21/2023 12:00:18 Cellulitis [id number] L03.90 [id number] SANDRA [facility]ARD [facility] [address] [place] [id number] 06/24/2023 15:28:26 06/25/2023 12:16:09 Candidal vulvovaginitis 99717180 B37.31 [id number] Froy Chaves MD [facility] [address] [place] [address] [id number] 0 08/21/2023 17:13:09 08/22/2023 11:34:46 Acute cystitis 60011455 N30.01 Patient reports urinary frequency, burning, and urgency consistent with her typical UTI symptoms. No history of MDR infections in the past. No systemic signs/symp toms to suggest sepsis. Plan for empiric treatment and outpatient follow-up as needed. [id number] Froy Chaves MD [facility] [address] [place] [id number] 0 10/12/2023 19:23:25 10/13/2023 10:50:43 Cellulitis of lower limb 182148413 L03.119 Patient reports being scratched (NOT bitten) by the dog, now with some surroundin g erythema. Notably does have some venous stasis changes bilaterall y but with some worsened edema. Given risk of progressio n, will treat empiricall y for cellulitis . Advised close PCP follow-up for wound check. [id number] Hang Olsen MD [facility] - [facility] [address] [place] [address] [id number] 0 06/26/2024 19:11:26 06/26/2024 22:29:47 Acute urinary tract infection 144814379 N39.0 fever since 06/22, no features of sepsis at this time. Will plan for 5 day treatment w levaquin. [id number] Froy Chaves MD [facility] [address] [place] [address] [id number] 0 07/12/2024 18:48:44 07/12/2024 21:13:42 Cellulitis of right lower limb [id number] 6503265 L03.115 Patient with a history of cellulitis presenting with similar. Slight tachycardi a and low grade temperatur e is concerning for developing infection. Given systemic symptoms, will treat with a dose of ceftriaxon e while awaiting rx from pharmacy. Reviewed return precaution s and discussed low threshold to go to ED if symptoms worsen given potential for sepsis. [id number] Marilee Boo MD [facility] [address] [place] [address] [id number] 0 07/18/2024 18:31:36 07/18/2024 23:37:59 Cellulitis of lower limb [id number] L03.119 53 year old female being evaluated [...] assessment and plan as documented by the business system consultant. I provided real-time medical direction for this encounter and was immediatel y available to provide additional phone-base d assistance as needed. We discussed the diagnostic uncertaint y of home visits and associated risks. We discussed the need to seek care urgently/e mergently in the setting of any new or worsening symptoms. [id number] Neisha Mario MD [facility] [address] [place] [address] [phone] 0 03/16/2025 19:04:42 03/16/2025 20:50:47 Urinary symptoms [id number] R39.9 [id number] Chhaya Lovett MD [facility] [address] [place] [address] [id number] 03/26/2025 20:01:36 03/27/2025 00:17:21 Acute COVID-19 [id number] U07.1 [id number] Asthma [id number] J45.90 [id number] Chhaya Lovett MD [facility] [address] [place] [address] [id number] 0 06/13/2025 19:10:12 06/13/2025 19:48:08 Urinary symptoms [id number] R39.9 Health Concerns Section Related Observation LastModified by Organization Detai ls LastModified Time None Recorded Concern Status LastModified by Organization Details LastModified Time None Recorded Advance Directives Directive None Recorded Payers Insurance Date Sequence Insurance Name Policy Number Policy Cabrera Covered Member ID Cabrera Member ID Guarantor Name 03/16/2025 1 [facility] - DOS PRIOR TO 2023 - DUAL ELIGIBLE (MEDICARE REPLACEMENT/ADV ANTAGE - HMO) Radha Kingquez [id number] Radha Antoniozquez 06/13/2025 1 [facility] - DOS ON OR AFTER 2023 - DUAL ELIGIBLE - ALF OPTIONS AND ONE CARE (MEDICARE REPLACEMENT/ADV ANTAGE - HMO) Radha Antoniozquez [id number] Radha Antoniozquez Notes Date Note Type Note Provider Name and Address Organization Details Recorded Time 07/12/2024 text/html CRC Nurse Triage Notes (Naomie Ponce): Reason For Request: Patient has leg pain, and feels like her bones hurt. Chief Complaints: Cellulitis PMH: Neurologic (E.G. ALS/MS), COPD/Asthma, Hypertension Allergies: Trimethoprim-Sulfam ethoxazole Comments: [employer] verified the member's name//address and phone number. [...] ................... ................... ................... ................... ................... ................... ........ Livestock Feeder Note From Trae Song: Pt reports today [...] ................... ................... ................... ........ Disposition: Fulfilled Froy Chvaes MD [address] [place] [address],[address], [place], [phone], [facility] - [place] 07/12/2024 20:10:23 07/18/2024 text/html HPI: Call returned to Radha Vera to triage below. Multiple pictures sent via Portal since 07/15. Pt handed phone to Ciarra pt caregiver. No injury to area. Warm to touch. Having pitting edema. Tender to touch. Pain with bearing. Pt was having fever last week. Pt seen by Hattie on Thursday and given IV abx and Keflex QID x 4 days. Pt still has 10 capsules left. Pt still having redness and pain. Pt seen by Vascular surgeon and advised elevation and increased lasix to 40mg daily. Per Ciarra no improvement since then. Advised of disposition, agrees to instED referral for re-assessment and POCT blood work ................... ................... ................... ................... ................... ................... ................... ........ CRC Nurse Triage Notes (Nydia Tee): Chief Complaints: Cellulitis PMH: Neurologic (E.G. ALS/MS), COPD/Asthma, Hypertension Allergies: Trimethoprim-Sulfam ethoxazole Other Allergies: Budesonide, formeterol, topiramate, oxybutynin Comments: CRC RN did not require any additional information to process this visit. ................... ................... ................... ................... ................... ................... ................... ........ Livestock Feeder Note From Trae Song: I visited Ms [...] pitting edema. 911 initiated for transport to [place] [facility]. SBAR to [facility]. ................... ................... ................... ................... ................... ................... ................... ........ Disposition: Fulfilled Marilee Boo MD [address] [facility],[address], [place], [phone], [employer] 07/18/2024 21:34:52 03/16/2025 text/html CRC Nurse Triage [...] 03/16/2025 - 17:39 Allergies Reviewed at 03/16/2025 17:39 Comments: 54 y.o female c/o pain in abdomen and lower back, urinary complaints-mild only abdominal pain, constant pain 06/01. Taking Tylenol and Naproxen as needed. Has [...] signs of when to seek emergency care. Livestock Feeder Organization Information for Shalom Tineo [employer] Legal Name: [employer]. Address: [address] [place] [id number], Choreography Director: Bret COTE No.: [id number] Livestock Feeder POC Test Results from Shalom Tineo - ALS Urine Dipstick (18:58:34) Urine leukocytes: 15 CESAR [...] ................... ................... ................... ................... ................... ................... ........ Livestock Feeder Note From Shalom Tineo: SC8 dispatched to address listed above for report of a female republican with UTI symptoms. 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 +/= Chest rise. -SOB, -CP, -NVD, -Trauma, -Fever. GCS 15. Abdomen soft but tender on palpation, right sided CVA tenderness present. [employer] reports that the patient has been having a constant diffuse abdominal pain radiating to the right flank since about Thursday. [employer] also reports blood present in diaper but unsure of where the blood came from, reports blood subsided yesterday. [employer] reports patient has history of both UTI and Kidney stones, last one of each being over a year ago. [employer] reports no recent trauma, fever, chills, SOB, CP, NVD. [employer] denies any urinary symptoms that were consistent with last UTI but would still like patient to be tested for one. [employer] reports normal food/fluid intake along with medication compliance. Patient vital signs obtained as noted. Patient able to provide urine sample via clean catch, urine culture obtained for lab sheila send out followed by urine dipstick as noted. [facility] [place], advised she would send prescription for Levofloxacin for patient to take and provided orders to [facility] for 500mg Levofloxacin PO. Levofloxacin 500mg PO administered to patient without incident, six patient rights verified prior. Red flags discussed with patient and demolition crane operator, advised to call back if patient condition worsens. SC8 Clear. [facility] [place] Orders: urinalysis, dipstick: Performed culture, urine: Performed [facility] Medication Orders: levofloxacin 500 mg tablet: Administered ................... ................... ................... ................... ................... ................... ................... ........ [facility] Consulted: Neisha Mario ................... ................... ................... ................... ................... ................... ................... ........ Disposition: Fulfilled Neisha Mario MD [address] [facility],[address], [place], [address], [employer] PRAMOD 03/16/2025 20:40:28 03/26/2025 text/html CRC Nurse Triage [...] signs of when to seek emergency care. Livestock Feeder Organization Information for Sandra Reyes [employer] Legal Name: [employer]. Address: [address] [place] [address], Choreography Director: Bret Champagne MD CLIA No.: [id number] Livestock Feeder POC Test Results from [employer] Rapid COVID antigen (18:42:22) COVID: + Attachments uploaded as part of this test result can be found under Documents section. Rapid influenza antigen (18:42:23) Flu: - Rapid strep test (18:42:24) Strep: - ................... ................... ................... ................... ................... ................... ................... ........ Livestock Feeder Note From Sandra Reyes: [facility] makes pt contact. She is wearing a mask and sitting in her walker in the kitchen of the home where she lives w/ family. She is alert and tracking and smiling at [facility]. Pt is generally well-appearing and not [...] but it has been many years . [facility] swabs pt for COVID/flu and strep [...] is noted and no changes are reported. [facility] contacts [facility] and discusses the above. [facility] recommends pt continue w/ supportive care and orders [facility] to administer a duoneb. [facility] administers one duoneb at 8 lpm O2 via nebulizer mask. Pt tolerates treatment well and lung sounds improve and are clear to auscultation bilaterally. She is informed of s/s which require emergency care. [facility] prescribes a 5 day course of prednisone for the pt w/ the instructions to start them tomorrow if she is still feeling the same as she does today. Pt states her verbal understanding of the instructions. [facility] is clear. Report completed by JAMES Reyes [id number]. [facility] [place] Orders: rapid SARS CoV 2 Ag, QL IA, respiratory specimen: Performed rapid flu (A+B): Performed rapid strep group A, throat: Performed [facility] Medication Orders: ipratropium 0.5 mg-albuterol 3 mg (2.5 mg base)/3 mL nebulization soln: Administered albuterol sulfate 2.5 mg/3 mL (0.083 %) solution for nebulization: Administered ipratropium 0.5 mg-albuterol 3 mg (2.5 mg base)/3 mL nebulization soln: Administered ................... ................... ................... ................... ................... ................... ................... ........ [facility] Consulted: Chhaya Lovett ................... ................... ................... ................... ................... ................... ................... ........ Disposition: Fulfilled Chhaya Lovett MD [address] [place] [address],[address], [place], [phone], [employer] PRAMOD M[place]ER 03/26/2025 20:31:21 06/13/2025 text/html CRC Nurse Triage Notes (Dennise Apple): Reason For Request: suspected uti, high bp and headache Denies: Unable to void greater than 5 hours Erection that will not go away after 2 hours Fall or trauma that results in urinary incontinence in the setting of pain Fall or injury that results in incontinence in the absence of pain Lower back pain either unilateral or bilateral, unable to void, painful urination -hematuria Chief Complaints: High Blood Pressure, Headache, Urinary Symptoms PMH: COPD/Asthma, Hypertension, Kidney Stones, Sleep Apnea PMH Reviewed at 06/13/2025:50 Allergies Reviewed at 06/13/2025:50 Comments: 54 y.o female complains of High Blood Pressure, Headache, Urinary Symptoms Ciarra calling on behalf of Radha Herr Suspecting UTI with urinary frequency. Up several times during the night with some episodes of incontinence. BP elevated, BP 162/93 at 9am today. Patient developed symptoms yesterday. Had chills yesterday. Patient states she was last treated on 03/16 for UTI. Denies pain. I provided information on the mobile health provider response time and advised the patient and/or caregiver to monitor reported signs and symptoms. I discussed the warning signs of when to seek emergency care. Livestock Feeder Organization Information for Franco Huff [employer] Legal Name: [employer]. Address: [address] [place] [address], Choreography Director: Bret Champagne MD [facility] No.: [id number] Livestock Feeder POC Test Results from Franco Huff Urine Dipstick (18:31:10) Urine leukocytes: 15+CESAR Urine nitrites: +NIT Urine urobilinogen: -URO Urine protein: -PRO Urine pH: 5pH Urine blood: +BLO Urine specific gravity: 1.000SG Urine ketones: +KET Urine bilirubin: -REYNALDO Urine glucose: -GLU ................... ................... ................... ................... ................... ................... ................... ........ Livestock Feeder Note From Franco Huff: Dispatched to the call address for the female with UTI signs/symptoms. Pt states last night she had to get up a bunch of times to go to the bathroom and had a couple of accidents, she also feels like she doesn't empty her bladder. She denies chest pain, diff breathing/SoB, n/v/d, black or bloody stools, fevers or other complaints at this time. Pt was found opening door, CAOx4, airway open and patent, breathing non labored, able to speak in full sentences, -JVD, -HEENT, skin PWD with good turgor, mucous membranes pink and moist, pupils PERRL, lungs CTA, abd soft non tender/distended, +CMSx4, -edema/swelling, -CVA tenderness. UA Positive UTI Pt was assessed. Urine sample obtained for lab, UA. C consulted. Pt given 100mg PO Nitrofurantoin. Script called into preferred pharmacy. Red flags discussed. ALL times are approx. ................... ................... ................... ................... ................... ................... ................... ........ [facility] Consulted: Chhaya Lovett ................... ................... ................... ................... ................... ................... ................... ........ Disposition: Christal Lovett MD [address] [place] [address],[address], [place], [phone], [facility] 06/13/2025 22:12:02 OBGyn Episode No OBEpisode recorded.
--- OUTSIDE RECORDS SUMMARY | 2025-09-07 18:24 | XMS_ITS | Encounter Summary ---
Author Organization [employer] Address [address] [facility] 7 [place] [address] Care Team Providers Care Car Ferry Captain Name Role Phone Marisabel Michel MD Primary Care Provider [phone] Encounter Details Date Type Department Care Team ([facility] st Contact Info) Description 10/04/2024 Orders Only [facility] [address] [place] [address] Lexie Lopez, PharmD [address] [place] [address] Social History Tobacco Use Types Packs/Day Years [...] as of this encounter Care Teams Car Ferry Captain Relationship Specialty Start Date End Date Marisabel Michel MD [address] [place] [address] PCP - General Family Medicine 09/04/11 documented as of this encounter
--- OUTSIDE RECORDS SUMMARY | 2025-09-07 18:24 | XMS_ITS | Encounter Summary ---
Author Organization [employer] Address [address] [facility] [address]t [place] [address] Care Team Providers Care Transfer Station Attendant Name Role Phone Marisabel Michel MD Primary Care Provider [phone] Encounter Details Date Type Department Care Team ([facility] st Contact Info) Description 06/30/2024 Orders Only [facility] [address] [place], [place] [phone] Marisabel Michel MD [address] [place] [address] Prediabetes (Primary Dx); Primary hypertension; Acute right [...] PM EDT) Hemoglobin A1c 6.1(H) <6.0 % [facility] Comment:Hemoglobin A1C Refer ence Range Adults: 4.8 - 6.0 % Non diabetic: < 6.0 % Goal: < 7.0 %Additional Action Suggested: > 8.0 %Note: Hemoglobin A1c results are invalid for patients with abnormal amounts of HbF. Blood transfusions may impact the HbA1c concentration in the patient sample. Estimated Average Glucose 128 mg/dL [facility] Comment:eAG = Estimated ave rage glucose which is %A1C expressed asaverage glucose, using the formula of the T9O-CvvhixxGfrwwkj Glucose study (ADAG), Diabetes Care, Vol.31,#8,Jun. 2007 Blood Venous blood specimen / Unknown 08/02/2024 5:05 PM EDT 08/02/2024 5:10 PM EDT Marisabel Michel MD LAB BLOOD ORDERABLES Final Resul t Performing Organization Address [facility] de Phone Number [facility] [address] [place] [phone] * (ABNORMAL) TSH with Reflex to Free T4 (07/15/2024 3:24 PM EDT) TSH reflex Free T4 0.19(L) 0.32 - 4.0 uIU/mL [facility] Blood 07/15/2024 3:24 PM EDT 07/15/2024 3:26 PM EDT Marisabel Michel MD LAB BLOOD ORDERABLES Final Resul t Performing Organization Address [facility] de Phone Number [facility] [address] [place] [phone] * (ABNORMAL) Sed Rate by Modified Jenniferren (07/15/2024 3:24 PM EDT) Erythrocyte Sedimentation Rate 71(H) 0 - 20 MM/HR [facility] Comment:Patients with polycy themia and many hemoglobin abnormalitiesmay have depressed sed rates whereas patients with anemiamay have elevated sed rates. Blood Venous blood specimen / Unknown 07/15/2024 3:24 PM EDT 07/15/2024 3:26 PM EDT Marisabel Michel MD LAB BLOOD ORDERABLES Final Resul t Performing Organization Address [facility] de Phone Number [facility] [address] [place] [phone] * (ABNORMAL) C-reactive Protein (07/15/2024 3:24 PM EDT) C Reactive Protein 18.68(H) < or = 0.50 mg/dL [facility] Blood Venous blood specimen / Unknown 07/15/2024 3:24 PM EDT 07/15/2024 3:26 PM EDT Marisabel Michel MD LAB BLOOD ORDERABLES Final Resul t Performing Organization Address [place] [facility] Phone Number [facility] [address] [place] [phone] * Uric acid (07/15/2024 3:24 PM EDT) Uric Acid 4.8 2.4 - 5.7 mg/dL [facility] Blood Venous blood specimen / Unknown 07/15/2024 3:24 PM EDT 07/15/2024 3:26 PM EDT Marisabel Michel MD LAB BLOOD ORDERABLES Final Resul t Performing Organization Address [facility] de Phone Number [facility] [address] [place] [phone] * (ABNORMAL) Comprehensive Metabolic Panel (07/15/2024 3:24 PM EDT) Sodium 141 135 - 145 mmol/L [facility] Potassium 3.5 3.3 - 5.1 mmol/L [facility] Chloride 105 96 - 108 mmol/L [facility] Carbon Dioxide 20(L) 22 - 29 mmol/L [facility] Anion Gap 20 12 - 20 [facility] Urea Nitrogen (BUN) 13 9 - 16 mg/dL [facility] Creatinine, Serum 0.81 0.5 - 1.4 mg/dL [facility] Estimated Glomerular Filt Rate >60 [facility] Comment:NOTE: For -Am erican individuals, multiply the result by 1.210.Chronic Kidney Disease: Estimated GFR < 60 mL/min/1.24f2Zylilo Kidney Disease: Estimated GFR < 15 mL/min/1.73m2 Glucose 91 60 - 115 mg/dL [facility] Calcium 10.5(H) 8.4 - 10.2 mg/dL [facility] Bilirubin, Total 0.4 0.0 - 1.0 mg/dL [facility] Aspartate Amino Transferase 17 5 - 31 U/L [facility] Alanine Aminotransferase 18 0 - 31 U/L [facility] Total Protein 8.5(H) 6.5 - 8.0 g/dL [facility] Albumin Level 4.3 3.5 - 5.0 g/dL [facility] Alkaline Phosphatase 87 39 - 117 U/L [facility] Blood Venous blood specimen / Unknown 07/15/2024 3:24 PM EDT 07/15/2024 3:26 PM EDT us Marisabel Michel MD LAB BLOOD ORDERABLES Final Resul t [facility] [address] [place] [phone] * (ABNORMAL) CBC auto differential (07/15/2024 3:24 PM EDT) White Blood Count 8.9 4.8 - 10.8 X10*3/uL [facility] Red Blood Count 4.49 4.20 - 5.50 X10*6/uL [facility] Hemoglobin 12.9 12.0 - 16.0 g/dl [facility] Hematocrit 39.1 37.0 - 47.0 % [facility] Mean Corpuscular Volume 87.1 80.0 - 98.0 fL [facility] Mean Corpuscular Hemoglobin 28.7 27.0 - 33.0 pg [facility] Mean Corpuscular HGB Conc 33.0 31.0 - 35.0 g/dl [facility] Red Cell Distribution Width 13.7 11.0 - 16.0 % [facility] Platelet Count 223 160 - 400 X10*3/uL [facility] Mean Platelet Volume 13.1(H) 9.4 - 12.3 fL [facility] Neutrophils Percent Auto 68.4 45 - 73 % [facility] Imm Gran Pct Auto 0.6(H) 0.0 - 0.4 % [facility] Lymphocytes Percent Auto 17.3(L) 20 - 40 % [facility] Monocytes Percent Auto 10.3 2 - 11 % [facility] Eosinophils Percent Auto 3.1 0 - 4 % [facility] Basophils Percent Auto 0.3 0 - 2 % [facility] NRBC Pct Auto 0.0 0.0 - 0.2 /100WBC [facility] Neutrophils Absolute Auto 6.1 2.0 - 8.3 x10*3/uL [facility] Imm Gran Abs Auto 0.05(H) 0.00 - 0.03 X10*3/uL [facility] Lymphocytes Absolute Auto 1.6 1.2 - 4.9 X10*3/uL [facility] Monocytes Absolute Auto 0.9 0.1 - 1.2 X10*3/uL [facility] Eosinophils Absolute Auto 0.3 0.0 - 0.4 X10*3/uL [facility] Basophils Absolute Auto 0.0 0.0 - 0.2 X10*3/uL [facility] NRBC Abs Auto 0.000 0.0 - 0.012 X10*3/uL [facility] Blood Venous blood specimen / Unknown 07/15/2024 3:24 PM EDT 07/15/2024 3:26 PM EDT Marisabel Michel MD LAB BLOOD ORDERABLES Edited Resu lt - Final [facility] [address] [place] [phone] * [facility] US Lower Extremity Venous Duplex Bilateral (07/15/2024 2:00 PM EDT) 07/15/2024 2:00 PM EDT Narrative [facility] - 07/15/2024 2:49 PM EDT [address] [address] Ultrasound Report Signed Patient: Radha Kimball MR#: [id number] : 1970 Acct:[id number] Age/Sex: 53 / F ADM Date: 07/15/24 Loc: .US Attending Dr: Sebastian Matta MD Ordering Physician: Sebastian Matta MD Date of Service: 07/15/24 Procedure(s): US venous duplex LE BI Accession Number(s): [id number] cc: Sebastian Matta MD; Marisabel Michel MD [...] 07/15/24 1445 DD/ 1400 TD/TT: 07/15/24 1420 Manager Food Safety: Procedure Note Ameyater, Image - 07/15/2024 [place] [address] Ultrasound Report Signed Patient: Radha Kimball#: [id number] : 1970Acct:[id number] Age/Sex: 53 / FADM Date: 07/15/24 Loc: HO.US Attending Dr: Sebastian Matta MD Ordering Physician: Sebastian Matta MD Date of Service: 07/15/24 Procedure(s): US venous duplex LE BI Accession Number(s): [id number] cc: Sebastian Matta MD; Marisabel Michel MD [...] tibialis vein are patent. There is no Orbert's cyst. US/US venous duplex LE BI IMPRESSION: No evidence of deep venous thrombosis in the bilateral lower extremities with the caveat of limited evaluation as above. Electronically signed by: Dina Carroll MD 07/15/2024 02:45 PM EDT Dictated By: Filomena Carroll Signed By: <Electronically signed by Filomena Carroll in OV> 07/15/24 1445 DD/ 1400 TD/TT: 07/15/24 1420 Manager Food Safety: [facility] External Provider CV VASC ULAR PROCEDURES Final Result [facility] [address] [place] [address] documented in this encounter Visit Diagnoses Diagnosis Prediabetes- Primary Other abnormal glucose Primary hypertension Unspecified essential hypertension Acute right ankle pain Fever, unspecified fever cause documented in this encounter Additional Health Concerns Assessment Noted Time PHQ-9 Depression Total Score: 0 03/29/20 24 3:23 PM EDT documented as of this encounter Care Teams Transfer Station Attendant Relationship Specialty Start Date End Date Marisabel Michel MD [address] [place] [phone] PCP - General Family Medicine 09/04/11 documented as of this encounter
--- OUTSIDE RECORDS SUMMARY | 2025-09-07 18:24 | XMS_ITS | Patient Health Record ---
Author Organization [facility] Address [address] [place] [address] Care Team Providers Care Box Blank Machine Operator Helper Name Role Phone Anand DIOR, Marisabel Primary Care Provider George Hyman Unavailable [phone] Reason For Referral No Information Medications Medication SIG (Take, Route, Frequency, Duration) Notes Start Date End Date Status hydrOXYzine HCl 10 MG Orally Active Dulcolax (colon prep) 5 MG take at 3:00 p.m and 7:00p.m. Orally two tablets twice a day for one day; Duration: 1 day 05/05/2021 Active Pulmicort 1 MG/2ML [...] at 5:00 p.m. the day before the procedure; Duration: 1 day 05/05/2021 Active Clotrimazole 10 MG 1 tablet at bedtime Mouth/Throat prn Active DuoNeb 0.5-2.5 (3) MG/3ML 3 ml Inhalation every 6 hrs PRN Active Terbinafine HCl 1 % 1 application to affected area Externally Twice a day Active ZyrTEC 10 MG 1 tablet Orally Once a day Active Nystatin 365696 UNIT/ML 4 ml Mouth/Throa t Twice a [...] Orally BID--in AM and PM before a meal; Duration: 30 day(s) Active Calcium 600 + D [...] W/U Status Risk Notes Problem Esophageal reflux (981011270) Esophageal reflux (K21.9) Active confirmed Problem Screening for malignant neoplasm of colon (797982981) Encounter for screening for malignant neoplasm of colon (Z12.11) Active confirmed Problem Gastroesophageal reflux disease (908240228) Gastroesophageal reflux disease, esophagitis presence not specified (K21.9) Active confirmed Problem Family History of Cancer of Colon (Situation) (713924179) Family history of colon cancer (Z80.0) Active confirmed Problem Benign neoplasm of stomach (69400949) Gastric polyps (K31.7) Active confirmed Problem Oropharyngeal dysphagia (10663113) Oropharyngeal dysphagia (R13.12) Active confirmed Problem 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 Problem Diverticulosis of sigmoid colon (188492893) Diverticulosis of sigmoid colon (K57.30) Active confirmed [...] Insured Coverage Start Date Coverage End Date [facility] [address] [place] [phone] [id number] JACKBEAUCARL Self - patient is the insured [facility] [address] [place] [address] [id number] JACK, CARL Self - patient is the insured Medical (General) History Medical History History ICD Code Alopecia Positive H.pylori serology in 07/2013-Rx' d with PPI and antibiotics Asthma Denies KS,DM,CVA,renal disease Kidney stones-ESWL Neg colonoscopy in 2004, [...]
--- OUTSIDE RECORDS SUMMARY | 2025-09-07 18:24 | XMS_ITS | Encounter Summary ---
Author Organization [employer] Address [address] [facility] 7t [place] [address] Care Team Providers Care Center Human Resources Manager Name Role Phone Marisabel Michel MD Primary Care Provider [phone] Reason for Referral * Imaging (Urgent) - Canceled Specialty Diagnoses / Procedures Referred By Contac t Referred To Contact Radiology Diagnoses Elevated erythrocyte sedimentation rate Acute right ankle pain Cellulitis of right leg Procedures MR Ankle w/ and w/o Contrast Right Marisabel Michel MD [address] [place] [address] Phone: tel: fax: [address] Phone: tel: fax: Referral ID Status Reason Start Date Expiration Date V isits Requested Visits Authorized [id number] Canceled 07/19/2024 07/19/2025 1 1 * Imaging (Urgent) - Closed Specialty Diagnoses / Procedures Referred By Contac t Referred To Contact Radiology Diagnoses Elevated erythrocyte sedimentation rate Acute right ankle pain Cellulitis of right leg Procedures MRI LOWER LEG / TIBIA FIBULA RIGHT W WO CONTRAST Marisabel Michel MD [address] [place] [address] Phone: tel: fax: [address] Phone: tel: fax: Referral ID Status Reason Start Date Expiration Date Visits Re quested Visits Authorized [id number] Closed 07/19/2024 07/19/2025 1 1 Encounter Details Date Type Department Care Team (Late st Contact Info) Description 07/15/2024 Orders Only [facility] [address] [place] [address] Marisabel Michel MD [address] [place] [address] Elevated erythrocyte sedimentation rate (Primary Dx); Cellulitis [...] Vitamin D 25-OH Total 54.6 >30 ng/mL [facility] Comment:Health Based Referen ce Values*< 20 ng/mL Mganoxtrf21-38 ng/mL Insufficient> 30 ng/mL Sufficient*Ashok SMITH. N [...] ORDERABLES Final Resul t Performing Organization Address [facility] Co de Phone Number [facility] [address] [place] [phone] * (ABNORMAL) PTH, Intact Without Calcium (08/02/2024 5:05 PM EDT) Parathyroid Hormone, Intact 78.5(H) 8.7 - 77.1 pg/mL [facility] Blood Venous blood specimen / Unknown 08/02/2024 5:05 PM EDT 08/02/2024 5:10 PM EDT us Marisabel Michel MD LAB BLOOD ORDERABLES Final Resul t Performing Organization Address [facility] Co de Phone Number [facility] [address] [place] [phone] * TSH (08/02/2024 5:05 PM EDT) Thyroid Stimulating Hormone 2.46 0.32 - 4.0 uIU/mL [facility] Comment:TSH 3rd Generation ( [facility]) Blood Venous blood specimen / Unknown 08/02/2024 5:05 PM EDT 08/02/2024 5:10 PM EDT Marisabel Michel MD LAB BLOOD ORDERABLES Final Resul t Performing Organization Address City/[facility] Co de Phone Number [facility] [address] [place] [phone] * (ABNORMAL) Sed Rate by Modified Westergren (08/02/2024 5:05 PM EDT) Erythrocyte Sedimentation Rate 71(H) 0 - 20 MM/HR [facility] Comment:Patients with polycy themia and many hemoglobin abnormalitiesmay have depressed sed rates whereas patients with anemiamay have elevated sed rates. Blood Venous blood specimen / Unknown 08/02/2024 5:05 PM EDT 08/02/2024 5:10 PM EDT Marisabel Michel MD LAB BLOOD ORDERABLES Final Resul t Performing Organization Address [facility] de Phone Number [facility] [address] [place] [phone] * (ABNORMAL) C-reactive Protein (08/02/2024 5:05 PM EDT) C Reactive Protein 1.90(H) < or = 0.50 mg/dL [facility] Blood Venous blood specimen / Unknown 08/02/2024 5:05 PM EDT 08/02/2024 5:10 PM EDT Marisabel Michel MD LAB BLOOD ORDERABLES Final Resul t Performing Organization Address [facility] Co de Phone Number [facility] [address] [place] [phone] * T4, Free (07/15/2024 3:24 PM EDT) Free T4 (Free Thyroxine) 1.45 0.71 - 1.85 ng/dL [facility] Blood Venous blood specimen / Unknown 07/15/2024 3:24 PM EDT 07/15/2024 3:26 PM EDT Marisabel Michel MD LAB BLOOD ORDERABLES Final Resul t [facility] [address] [place] [phone] documented in this encounter Visit Diagnoses Diagnosis Elevated erythrocyte sedimentation rate- Primary Elevated sedimentation rate Cellulitis of lower extremity, unspecified laterality Abnormal TSH Fever, unspecified fever cause Acute right ankle pain Cellulitis of right leg documented in this encounter Additional Health Concerns Assessment Noted Time PHQ-9 Depression Total Score: 0 03/29/20 24 3:23 PM EDT documented as of this encounter Care Teams Center Human Resources Manager Relationship Specialty Start Date End Date Marisabel Michel MD [address] [place] [address] PCP - General Family Medicine 09/04/11 documented as of this encounter
--- OUTSIDE RECORDS SUMMARY | 2025-09-07 18:24 | XMS_ITS | Encounter Summary ---
Author Organization [employer] Address [address] [facility] 7t [place] [address] Care Team Providers Care Real Estate Job Titles Name Role Phone Marisabel Michel MD Primary Care Provider [phone] Encounter Details Date Type Department Care Team ([facility] st Contact Info) Description 01/08/2023 Orders Only [facility] MEDICINE [address] [place], [place] [phone] Marisabel Michel MD [address] [place] [address] Allergic rhinitis due to other allergic trigger, [...] complication documented in this encounter Care Teams Real Estate Job Titles Relationship Specialty Start Date End Date Marisabel Michel MD [address] [place] [address] [phone] PCP - General Family Medicine 09/04/11 documented as of this encounter
--- OUTSIDE RECORDS SUMMARY | 2025-09-07 18:24 | XMS_ITS | Encounter Summary ---
Author Organization [employer] Address [address] [facility] 7t [place] [address] Care Team Providers Care Bottle Packer Name Role Phone Marisabel Michel MD Primary Care Provider [phone] Encounter Details Date Type Department Care Team ([facility] st Contact Info) Description 08/01/2024 Orders Only [facility] MEDICINE [address] [place], [place] [phone] Marisabel Michel MD [address] [place], [place] [phone] Prediabetes (Primary Dx) Social History Tobacco Use [...] documented as of this encounter Care Teams Bottle Packer Relationship Specialty Start Date End Date Marisabel Michel MD [address] [place] [address] PCP - General Family Medicine 09/04/11 documented as of this encounter
--- OUTSIDE RECORDS SUMMARY | 2025-09-07 18:24 | XMS_ITS | Encounter Summary ---
Author Organization [employer] Address [address] [facility] [address] 7t [place] [address] Care Team Providers Care Film Writer Name Role Phone Marisabel Michel MD Primary Care Provider [phone] Reason for Visit * Reason Comments Med Refill Encounter Details Date Type Department Care Team ([facility] st Contact Info) Description 09/07/2025 Refill [facility] MEDICINE 230 [place], [place] [phone] Marisabel Michel MD [address] [place], [place] [phone] Osteopenia, unspecified location Social History Tobacco Use [...] housing situation today? I have diane arleth 06/05/[address] you li [...] documented as of this encounter Care Teams Film Writer Relationship Specialty Start Date End Date Marisabel Michel MD [address] [place] [address] PCP - General Family Medicine 09/04/11 documented as of this encounter
--- OUTSIDE RECORDS SUMMARY | 2025-09-07 18:24 | XMS_ITS | Clinical Summary ---
Author Organization [facility] Address [address] [place] [address] Phone Care Team Providers Care Fur Glosser Name Role Phone Marisabel Michel MD Primary Care Provider [phone] Social History Tobacco Use Types Packs/Day Years [...] topic Medical Devices Not on file Insurance [facility] ONE CARE MEDICARE REPLACEMENT MEDICARE PART A & [place] [address] [address] ONE CARE MEDICARE REPLACEMENT MEDICARE PART A & B MEDICARE PART A & B ONE CARE MEDICARE REPLACEMENT Member Subscriber Plan / Payer ( fective 2016-Present) Name:Chuy Radha Relation to Subscriber:Self Name:VeraRadha singh Payer ID:[id number] (NAIC) Group ID:[id number] Type:Medicare Address: [address] [facility] [place] [facility] MEDICARE PART A & B ONE CARE MEDICARE REPLACEMENT MEDICARE PART A & B [facility] ONE CARE MEDICARE REPLACEMENT [place] [id number] MEDICARE PART A & B Care Teams Fur Glosser Relationship Specialty Start Date End Date Marisabel Michel MD [address] [place] [address] PCP - General Family Medicine 10/06/24 Additional Source Comments The information contained in this document represents components of the legal health record. It is not the complete legal health record.[facility]
--- OUTSIDE RECORDS SUMMARY | 2025-09-07 18:24 | XMS_ITS | Encounter Summary ---
Author Organization [employer] Address [address] [facility] 7t [place] [address] Care Team Providers Care Airplane Pilot Photogrammetry Name Role Phone Marisabel Michel MD Primary Care Provider [phone] Reason for Visit * Reason Comments Med Refill Encounter Details Date Type Department Care Team ([facility] st Contact Info) Description 11/06/2023 Refill [facility] MEDICINE [address] [place], [place] [phone] Vicky Sage ANP [address] [place], [place] [phone] Social History Tobacco Use Types Packs/Day Years [...] documented as of this encounter Care Teams Airplane Pilot Photogrammetry Relationship Specialty Start Date End Date Marisabel Michel MD [address] [place] [address] PCP - General Family Medicine 09/04/11 documented as of this encounter
--- OUTSIDE RECORDS SUMMARY | 2025-09-07 18:24 | XMS_ITS | Encounter Summary ---
Author Organization [employer] Address [address] [facility] [address] 7t [place] [address] Care Team Providers Care Head Char Filter Tank Tender Name Role Phone Marisabel Michel MD Primary Care Provider [phone] Encounter Details Date Type Department Care Team (Latest Contact Info) Description 09/05/2025 Travel Social History Tobacco Use Types Packs/Day Years [...] documented as of this encounter Care Teams Head Char Filter Tank Tender Relationship Specialty Start Date End Date Marisabel Michel MD [address] [place] [phone] PCP - General Family Medicine 09/04/11 documented as of this encounter
--- OUTSIDE RECORDS SUMMARY | 2025-09-07 18:24 | XMS_ITS | Encounter Summary ---
Author Organization [employer] Address [address] [facility] 7t [place] [address] Care Team Providers Care Professional Security Officer Name Role Phone Marisabel Michel MD Primary Care Provider Reason for Referral * Imaging (Urgent) - Closed Specialty Diagnoses / Procedures Referred By Contac t Referred To Contact Radiology Diagnoses Acute pain of right knee Procedures MR Knee w/o Contrast Right Marisabel Michel MD [address] [place] [address] Phone: tel: fax: [facility] [address] [place] [address] Phone: tel: fax: Referral ID Status Reason Start Date Expiration Date Visits Re quested Visits Authorized [id number] Closed 05/18/2024 05/18/2025 1 1 Encounter Details Date Type Department Care Team (Late st Contact Info) Description 05/18/2024 Orders Only [facility] MEDICINE [address] [place], [place] [phone] Marisabel Michel MD [address] [place] [address] Acute pain of right knee [...] PM EDT Narrative 05/25/2024 4:16 PM EDT [address] [address] Magnetic Resonance Report Signed Patient: Chuy VeraRadha MR#: [id number] : 1970 Acct:[id number] Age/Sex: 53 / F ADM Date: 05/25/24 Loc: HO.MRI Attending Dr: Marisabel Michel MD Ordering Physician: Marisabel Michel MD Date of Service: 05/25/24 Procedure(s): MR knee RT wo con Accession Number(s): [id number] cc: Marisabel Michel MD EXAMINATION: MR KNEE [...] in OV> 05/25/24 1613 DD/ 1533 TD/TT: Bar Examiner: SANDHYA Procedure Note Donotuseinterpreter, Image - 05/25/[address] [address] Magnetic Resonance Report Signed Patient: Radha Kimball#: [id number] : 1970Acct:[id number] Age/Sex: 53 / FADM Date: 05/25/24 Loc: HO.MRI Attending Dr: Marisabel Michel MD Ordering Physician: Marisabel Michel MD Date of Service: 05/25/24 Procedure(s): MR knee RT wo con Accession Number(s): [id number] cc: Marisabel Michel MD EXAMINATION: MR KNEE [...] MD inOV> 05/25/24 1613 DD/ 1533 TD/TT: Bar Examiner: DM us Marisabel Sakurai MD IMG MRI PROCEDURES Final Result documented in this encounter Visit Diagnoses Diagnosis Acute pain of right knee- Primary Primary hypertension Unspecified essential hypertension documented in this encounter Additional Health Concerns Assessment Noted Time PHQ-9 Depression Total Score: 0 03/29/20 24 3:23 PM EDT documented as of this encounter Care Teams Professional Security Officer Relationship Specialty Start Date End Date Marisabel Michel MD [address] [place] [address] PCP - General Family Medicine 09/04/11 documented as of this encounter
--- OUTSIDE RECORDS SUMMARY | 2025-09-07 18:24 | XMS_ITS | Encounter Summary ---
Author Organization [employer] Address [address] [facility] 7t [place] [address] Care Team Providers Care Diffusion Operator Name Role Phone Marisabel Michel MD Primary Care Provider [phone] Encounter Details Date Type Department Care Team ([facility] st Contact Info) Description 09/08/2024 Orders Only [facility] MEDICINE 230 [place], [place] [phone] Marisabel Michel MD [address] [place] [address] Social History Tobacco Use Types Packs/Day Years [...] documented as of this encounter Care Teams Diffusion Operator Relationship Specialty Start Date End Date Marisabel Michel MD [address] [place] [address] PCP - General Family Medicine 09/04/11 documented as of this encounter
--- OUTSIDE RECORDS SUMMARY | 2025-09-07 18:24 | XMS_ITS | Encounter Summary ---
Author Organization [employer] Address [address] [facility] 7t [place] [address] Care Team Providers Care Rn Field Name Role Phone Marisabel Michel MD Primary Care Provider [phone] Encounter Details Date Type Department Care Team ([facility] st Contact Info) Description 09/29/2024 Orders Only [facility] MEDICINE 230 [place], [place] [phone] Marisabel Michel MD [address] [place] [address] Social History Tobacco Use Types Packs/Day Years [...] as of this encounter Care Teams Rn Field Relationship Specialty Start Date End Date Marisabel Michel MD [address] [place] [address] PCP - General Family Medicine 09/04/11 documented as of this encounter
--- OUTSIDE RECORDS SUMMARY | 2025-09-07 18:24 | XMS_ITS | Encounter Summary ---
Author Organization [employer] Address [address] [facility] 7t [place] [address] Care Team Providers Care Custodian Name Role Phone Marisabel Michel MD Primary Care Provider [phone] Reason for Referral * Consultation (Routine) - Closed Specialty Diagnoses / Procedures Referred By Contac t Referred To Contact Pharmacy Diagnoses Moderate persistent asthma without complication Prediabetes Primary hypertension Polypharmacy Marisabel Michel MD [address] [place] [address] Phone: tel: fax: Referral ID Status Reason Start Date Expiration Date V isits Requested Visits Authorized [id number] Closed Continuity of Care 09/09/2024 09/09/2025 6 6 Encounter Details Date Type Department Care Team ([facility] st Contact Info) Description 09/09/2024 Orders Only [facility] MEDICINE [address] [place] [phone] Marisabel Michel MD [address] [place], [place] [phone] Moderate persistent asthma without complication (Primary Dx); [...] documented as of this encounter Care Teams Custodian Relationship Specialty Start Date End Date Marisabel Michel MD [address] [place] [address] PCP - General Family Medicine 09/04/11 documented as of this encounter
--- OUTSIDE RECORDS SUMMARY | 2025-09-07 18:24 | XMS_ITS | Encounter Summary ---
Author Organization [employer] Address [address] [facility] [address] 7[address] [place] [address] Care Team Providers Care Preliminary School Psychologist Name Role Phone Marisabel Michel MD Primary Care Provider [phone] Encounter Details Date Type Department Care Team ([facility] st Contact Info) Description 03/18/2024 Orders Only [facility] MEDICINE 230 [place], [place] [phone] Marisabel Michel MD [address] [place], [place] [phone] Social History Tobacco Use Types Packs/Day Years [...] PM EDT Narrative 04/17/2024 6:32 AM EDT [address] [place] [address] Mammography Report Signed Patient: Radha Kimball MR#: [id number] : 1970 Acct:[id number] Age/Sex: 53 / F ADM Date: 03/21/24 Loc: [facility]AT Attending Dr: Marisabel Michel MD Ordering Physician: Marisabel Michel MD Results: 1Negative Date of Service: 03/21/24 Follow Up: 1 Year From [facility] Mammogram Procedure(s): MM tomosynthesis screening BI Accession Number(s): [id number] cc: Marisabel Michel MD EXAMINATION: MM SCREENING [...] in OV> 04/17/24 0629 DD/ 1310 TD/TT: Residential Therapist: Procedure Note Donotuseinterpreter, Image - [facility]17/[facility] [address] [place] [address] Mammography Report Signed Patient: Shani Kimball#: [id number] : 1970Acct:[id number] Age/Sex: 53 / FADM Date: 03/21/24 Loc: RAFAT Attending Dr: Marisabel Michel MD Ordering Physician: Marisabel Michel MDResults: 1Negative Date of Service: 03/21/24Follow Up: 1 Year From Orig inal Mammogram Procedure(s): MM tomosynthesis screening BI Accession Number(s): [id number] cc: Marisabel Michel MD EXAMINATION: MM SCREENING [...] in OV> 04/17/24 0629 DD/ 1310 TD/TT: Residential Therapist: us Marisabel Michel MD IMG BI PROCEDURES Final Result documented in this encounter Visit Diagnoses Not on filedocumented in this encounter Additional Health Concerns Assessment Noted Time PHQ-9 Depression Total Score: 2 02/25/20 23 1:12 PM EDT documented as of this encounter Care Teams Preliminary School Psychologist Relationship Specialty Start Date End Date Marisabel Michel MD [address] [place] [address] PCP - General Family Medicine 09/04/11 documented as of this encounter
--- OUTSIDE RECORDS SUMMARY | 2025-09-07 18:24 | XMS_ITS | Encounter Summary ---
Author Organization [employer] Address [address] [place] [address] [address] [place] [address] Care Team Providers Care Director Of Education And Training Name Role Phone Marisabel Michel MD Primary Care Provider Reason for Referral * Consultation (Routine) - Closed Specialty Diagnoses / Procedures Referred By Contcarlos t Referred To Contact Diagnoses Sinusitis, unspecified chronicity, unspecified location Marisabel Michel MD [address] [place] [address] Phone: tel: fax: Jamshid Aly [address] [place] [address] [address] [place], [place] [address] Phone: tel: fax: Referral ID Status Reason Start Date Expiration Date V isits Requested Visits Authorized [id number] Closed Specialty Services Required 04/22/2024 04/22/2025 1 1 Encounter Details Date Type Department Care Team (Late st Contact Info) Description 04/22/2024 Orders Only [facility] MED[facility]INE [address] [place], [place] [phone] Marisabel Michel MD [address] [place], [place] [phone] Sinusitis, unspecified chronicity, unspecified location (Primary Dx) [...] PM EDT Narrative 05/10/2024 5:32 PM EDT [address] [place] [address] Ultrasound Report Signed Patient: Radha Kimball MR#: [id number] : 1970 Acct:[id number] Age/Sex: 53 / F ADM Date: 05/10/24 Loc: [facility] Attending Dr: Marisabel Michel MD Ordering Physician: Marisabel Michel MD Date of Service: 05/10/24 Procedure(s): US venous duplex LE RT Accession Number(s): [id number] cc: Marisabel Michel MD EXAMINATION: US VENOUS [...] in OV> 05/10/24 1728 DD/ 1648 TD/TT: Breast Worker: JUANITA Procedure Note Donotuseinterpreter, Image - 05/10/[address] [address] Ultrasound Report Signed Patient: Radha KimballMR#: [id number] : 1970Acct:[id number] Age/Sex: 53 / FADM Date: 05/10/24 Loc: [facility] Attending Dr: Marisabel Michel MD Ordering Physician: Marisabel Michel MD Date of Service: 05/10/24 Procedure(s): US venous duplex LE RT Accession Number(s): [id number] cc: Marisabel Michel MD EXAMINATION: US VENOUS [...] in OV> 05/10/24 1728 DD/ 1648 TD/TT: Breast Worker: JUANITA us Marisabel Michel MD IMG US PROCEDURES Final Result documented in this encounter Visit Diagnoses Diagnosis Sinusitis, unspecified chronicity, unspecified location- Primary documented in this encounter Additional Health Concerns Assessment Noted Time PHQ-9 Depression Total Score: 0 03/29/20 24 3:23 PM EDT documented as of this encounter Care Teams Director Of Education And Training Relationship Specialty Start Date End Date Marisabel Michel MD [address] [place] [address] PCP - General Family Medicine 09/04/11 documented as of this encounter
--- OUTSIDE RECORDS SUMMARY | 2025-09-07 18:24 | XMS_ITS | Encounter Summary ---
Author Organization [employer] Address [address] [facility] [address]t [place] [address] Care Team Providers Care Metallurgist Helper Name Role Phone Marisabel Michel MD Primary Care Provider [phone] Reason for Visit * Reason Onset Date Comments chart prep 09/04/2025 Encounter Details Date Type Department Care Team ([facility] Contact Info) Description 09/04/2025 Telephone [facility] MED[facility]INE [address] [place], [place] [phone] Marisabel Michel MD [address] [place], [place] [phone] chart prep Social History Tobacco Use Types Packs/Day Years [...] encounter Miscellaneous Notes * Telephone Encounter - Dotty Ferrell [place] - 09/04/2025 9:38 AM EDT Chart Prep Labs: done Images: done Referrals: complete Vaccines due: Flu Screenings: not applicable Overdue care gaps: Not applicable documented in this encounter Plan of Treatment Not on file documented as of this encounter Visit Diagnoses Not on filedocumented in this encounter Additional Health Concerns Assessment Noted Time PHQ-9 Depression Total Score: 5 06/05/20 25 3:36 PM EDT documented as of this encounter Care Teams Metallurgist Helper Relationship Specialty Start Date End Date Marisabel Michel MD [address] [place] [address] PCP - General Family Medicine 09/04/11 documented as of this encounter
--- OUTSIDE RECORDS SUMMARY | 2025-09-07 18:24 | XMS_ITS | Encounter Summary ---
Author Organization [employer] Address [address] [facility] [address]t [place] [address] Care Team Providers Care Student Success Coach Name Role Phone Marisabel Michel MD Primary Care Provider [phone] Encounter Details Date Type Department Care Team ([facility] st Contact Info) Description 12/02/2022 Orders Only [facility] MED[facility]INE [address] [place] [address] Marisabel Michel MD [address] [place] [address] Moderate persistent asthma without complication (Primary Dx); [...] dermatitis documented in this encounter Care Teams Student Success Coach Relationship Specialty Start Date End Date Marisabel Michel MD [address] [place] [address] PCP - General Family Medicine 09/04/11 documented as of this encounter
--- OUTSIDE RECORDS SUMMARY | 2025-09-07 18:24 | XMS_ITS | Encounter Summary ---
Author Organization [employer] Address [address] [facility] 7t [place] [address] Care Team Providers Care Pattern Marking Supervisor Name Role Phone Marisabel Michel MD Primary Care Provider [phone] Reason for Referral * Consultation (Urgent) - Closed Specialty Diagnoses / Procedures Referred By Contac t Referred To Contact Diagnoses Cellulitis of right lower leg Pain in right lower leg Marisabel Michel MD [address] [place] [address] Phone: tel: fax: Ester Palm MD [address] [facility] [address] [place] [address] Phone: tel: Referral ID Status Reason Start Date Expiration Date V isits Requested Visits Authorized [id number] Closed Specialty Services Required 08/29/2024 08/29/2025 1 1 Encounter Details Date Type Department Care Team (Late st Contact Info) Description 08/29/2024 Orders Only [facility] MED[facility]INE [address] [place], [place] [phone] Marisabel Michel MD [address] [place], [place] [phone] Cellulitis of right lower leg (Primary Dx); [...] as of this encounter Care Teams Pattern Marking Supervisor Relationship Specialty Start Date End Date Marisabel Michel MD [address] [place] [address] PCP - General Family Medicine 09/04/11 documented as of this encounter
--- OUTSIDE RECORDS SUMMARY | 2025-09-07 18:25 | XMS_ITS | Encounter Summary ---
Author Organization [employer] Address [address] [facility] 7[address] [place] [address] Care Team Providers Care Pile Driving Superintendent Name Role Phone Marisabel Michel MD Primary Care Provider [phone] Encounter Details Date Type Department Care Team ([facility] st Contact Info) Description 06/30/2023 Abstract [facility] MED[facility]INE [address] [place], [place] [phone] Marisabel Michel MD [address] [place], [place] [phone] Social History Tobacco Use Types Packs/Day Years [...] documented as of this encounter Care Teams Pile Driving Superintendent Relationship Specialty Start Date End Date Marisabel Michel MD [address] [place] [address] PCP - General Family Medicine 09/04/11 documented as of this encounter
--- OUTSIDE RECORDS SUMMARY | 2025-09-07 18:25 | XMS_ITS | Encounter Summary ---
Author Organization [employer] Address [address] [facility] [address] [place] [address] Care Team Providers Care Talent Associate Name Role Phone Marisabel Michel MD Primary Care Provider [phone] Encounter Details Date Type Department Care Team ([facility] st Contact Info) Description 10/01/2023 Orders Only [facility] MEDICINE [address] [place], [place] [phone] Marisabel Michel MD [address] [place], [place] [phone] Social History Tobacco Use Types Packs/Day Years [...] documented as of this encounter Care Teams Talent Associate Relationship Specialty Start Date End Date Marisabel Micehl MD [address] [place] [address] PCP - General Family Medicine 09/04/11 documented as of this encounter
--- OUTSIDE RECORDS SUMMARY | 2025-09-07 18:25 | XMS_ITS | Clinical Summary ---
Author Organization [employer] Address [address] [facility] [address] [place] [address] Care Team Providers Care Musical Instrument Maker Or Repairer Name Role Phone Marisabel Michel MD Primary Care Provider [phone] Allergies Active Allergy Reactions Criticality Noted Date [...] nausea or vomiting. 30 tablet 3 Active sodium chloride (Brooks) 0.65 % nasal spray Administer 1 spray [...] NOT CRUSH OR CHEW. 180 capsule 3 Active diphenhydrAMINE (Banophen) 25 MG capsuleIndication s:Allergic [...] A DAY 180 capsule 1 025 Active ferrous sulfate 325 (65 Fe) MG tablet TAKE 1 TABLET BY MOUTH EVERY OTHER DAY 45 tablet 1 025 Active Oyster Shell Calcium 500 MG tabletIndications :Osteopenia, unspecified location TAKE 1 TABLET BY MOUTH EVERY OTHER DAY 45 tablet 1 025 Active gabapentin (Neurontin) 100 MG capsule Take 1 capsule by mouth at bedtime. May take 2 capsules if pain relief is inadequate. 90 capsule 3 024 2024 Discontinued Oyster Shell Calcium 500 MG tabletIndications :Osteopenia, unspecified location TAKE 1 TABLET BY MOUTH every other day 45 tablet 3 024 2024 Discontinued ferrous sulfate 325 (65 Fe) MG tablet TAKE 1 TABLET BY MOUTH EVERY OTHER DAY 45 tablet 3 024 2024 Discontinued fluticasone (Flonase) 50 [...] (02/18/2025 5:07 AM EDT): - following with compliance specialist - she is pleased with her new compliance specialist's care - continue following the recommendation from the compliance specialist Acquired hammer toe of right foot 02/18/2025 Assessment & Plan (02/18/2025 5:07 AM EDT): - following with compliance specialist - she is pleased with her new compliance specialist's care - continue following the recommendation from the compliance specialist Ulcer of toe of left foot ([facility]) 02/18/2025 Assessment & Plan (02/18/2025 5:07 AM EDT): - following with compliance specialist - she is pleased with her new compliance specialist's care - continue following the recommendation from the compliance specialist Environmental allergies 10/05/2024 Orthopnea 10/05/2024 Osteoarthritis of [...] / lateral compartment osteoarthritis. - seen by [facility] Ortho on 05/18/24 and was given intraarticular [...] of osteoporosis / osteopenia - Following with compliance specialist; seen yesterday - Evaluate with MRI due [...] PCP and furosemide which was prescribed by insecticide supervisor -Continue working on lifestyle modifications -Continue self-monitoring [...] PCP and furosemide which was prescribed by insecticide supervisor -Continue working on lifestyle modifications -Continue self-monitoring [...] PCP and furosemide which was prescribed by insecticide supervisor -Continue working on lifestyle modifications -Continue self-monitoring [...] (06/08/2025 6:25 PM EDT): -followed by urologist, [facility] seen on 04/11/25, annual f/u -most recent US in March 2025 a possible tiny stone in R kidney -s/p ESWL of R kidney stone on 04/05/2018 and 04/28/2018 -continue water intake 2L/day, preferrably lemon water Assessment & Plan (07/01/2023 3:47 PM EDT): -followed by urologist, [facility] seen on 04/07/23, annual f/u -most recent [...] Plan (07/29/2024 10:22 AM EDT): -followed by vice president regulatory, Dr. Rivers -advised to schedule appointment with Dr. Rivers to evaluate for her cellulitis; possible stasis dermatitis and/or atopic dermatitis. Assessment & Plan (03/08/2023 7:04 PM EDT): -followed by vice president regulatory, Dr. Rivers Tubular adenoma of colon 03/08/2023 [...] Plan (06/08/2025 6:26 PM EDT): -Followed by It Infrastructure Architect. -Cont moisturization -Continue compression stocking -Leg elevation -Low sodium diet Assessment & Plan (07/01/2023 3:46 PM EDT): -Followed by It Infrastructure Architect. -Cont moisturization. -Leg elevation -Low sodium diet Assessment & Plan (03/08/2023 7:16 PM EDT): Followed by It Infrastructure Architect. -Cont moisturization. -Keep legs elevated. 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 Assessment & Plan (06/28/2024 5:46 AM EDT): - bilateral - following with [facility] orthopedic provider - received steroid injection to left knee in January 2023 - received steroid injection to right knee in April 2024 Assessment & Plan (03/08/2023 6:55 PM EDT): - seen by [facility] orthopedic provider on 12/26/22 - received steroid [...] AM EDT): Previously followed by allergy / tire specialist, Dr. Loco, now waiting for an appt with new specialist Evaluated by [facility] provider in 2022, patient was offered immunotherapy, but had been hesitant Currently following with [facility] pulmonology for both allergy, asthma, and FARTUN Continue cetirizine 10 mg bid Continue montelukast 10 mg daily Continue flonase Assessment & Plan (12/25/2023 6:13 AM EST): Previously followed by allergy / tire specialist, Dr. Loco, now waiting for an appt with new specialist Evaluated by [facility] provider in 2022, patient was offered immunotherapy, but had been hesitant Currently following with [facility] pulmonology for both allergy, asthma, and FARTUN Continue cetirizine 10 mg bid Continue montelukast 10 mg daily Continue flonase Assessment & Plan (03/08/2023 7:14 PM EDT): Previously followed by allergy / tire specialist, Dr. Loco, now waiting for an appt with new specialist Continue cetirizine 10 mg bid Continue montelukast 10 mg daily Continue flonase Assessment & Plan (10/29/2022 2:29 PM EST): Followed by allergy / tire specialist, Dr. Mcelroy Continue cetirizine 10 mg bid Continue montelukast 10 mg daily Asthma 08/29/2015 Assessment & Plan (06/08/2025 6:24 PM EDT): -Previously followed by Dr. Loco, allergy /tire specialist -Currently following with Dr. Pederson, [facility] pulmonology -Exacerbation 1-2 times per year -Last exacerbation in November 2020, Rx Prednisone -Continue fluticasone furonate / vilanterol (Breo) -Continue tiotropium (Spiriva) -Continue montelukast -Continue albuterol HFA/neb prn Treatment Hx: Advair, difficulty using Diskus; Pulmicort; Incruse Assessment & Plan (02/14/2025 9:44 AM EDT): -Previously followed by Dr. Loco, allergy /tire specialist -Currently following with Dr. Pederson [facility] pulmonology -Exacerbation 1-2 times per year -Last exacerbation in November 2020, Rx Prednisone (-Continue Spiriva) - Dr. Loco prescribed, but not mentioned in Dr. Pederson's note -Continue Breo -Continue montelukast -Continue albuterol HFA/neb prn Treatment Hx: Advair, difficulty using Diskus; Pulmicort; Incruse Assessment & Plan (06/28/2024 5:58 AM EDT): -Previously followed by Dr. Loco, allergy /tire specialist -Currently following with Dr. Pederson [facility] pulmonology -Exacerbation 1-2 times per year -Last exacerbation in November 2020, Rx Prednisone (-Continue Spiriva) - Dr. Loco prescribed, but not mentioned in Dr. Pederson's note -Continue Breo -Continue montelukast -Continue albuterol HFA/neb prn Treatment Hx: Advair, difficulty using Diskus; Pulmicort; Incruse Assessment & Plan (03/29/2024 5:07 PM EDT): -Previously followed by Dr. Loco, allergy /tire specialist -Currently following with Dr. Pederson [facility] pulmonology -Exacerbation 1-2 times per year -Last exacerbation in November 2020, Rx Prednisone (-Continue Spiriva) - Dr. Loco prescribed, but not mentioned in Dr. Pederson's note -Continue Breo -Continue montelukast -Continue albuterol HFA/neb prn Treatment Hx: Advair, difficulty using Diskus; Pulmicort; Incruse Assessment & Plan (12/25/2023 6:04 AM EST): -Previously followed by Dr. Loco, allergy /tire specialist -Currently following with Dr. Pederson [facility] pulmonology -Exacerbation 1-2 times per year -Last exacerbation in November 2020, Rx Prednisone (-Continue Spiriva) - Dr. Loco prescribed, but not mentioned in Dr. Pederson's note -Continue Breo -Continue montelukast -Continue albuterol HFA/neb prn Treatment Hx: Advair, difficulty using Diskus; Pulmicort; Incruse Assessment & Plan (07/01/2023 3:43 PM EDT): -Previously followed by Dr. Loco, allergy /tire specialist -Exacerbation 1-2 times per year -Last exacerbation in November 2020, Rx Prednisone -Continue Spiriva -Continue Breo -Continue Singulair -Continue albuterol HFA/neb prn Treatment Hx: Advair, difficulty using Diskus; Pulmicort; Incruse Assessment & Plan (03/08/2023 6:59 PM EDT): -Previously followed by Dr. Loco, allergy /tire specialist -Exacerbation 1-2 times per year -Last exacerbation in November 2020, Rx Prednisone -Continue Spiriva -Continue Breo -Continue Singulair -Continue albuterol HFA/neb prn Treatment Hx: Advair, difficulty using Diskus; Pulmicort; Incruse Assessment & Plan (10/28/2022 9:38 PM EST): Upset Welding Machine Operator, Dr. Mcelroy, upcoming appt Continue Breo Continue [...] will continue using furosemide judiciously. - patient's inspector elevators recommended to double the dose of furosemide, [...] will continue using furosemide judiciously. - patient's inspector elevators recommended to double the dose of furosemide, [...] Encounters Date Type Department Care Team Description 09/07/2025 Refill [facility] [address] [facility] [place] [address] Marisabel Michel MD Osteopenia, unspecified location 09/05/2025 2:15 PM EDT Office Visit [facility] [address] [place] [address] Marisabel Michel MD Primary hypertension (Primary Dx); Prediabetes; Encounter for immunization 09/05/2025 Travel 09/04/2025 Telephone [facility] [address] [place] [address] Marisabel Michel MD chart prep 08/26/2025 Refill [facility] [address] [place] [address] Marisabel Michel MD 08/26/2025 Refill [facility] [address] [place] [address] Xiao Powers MD 08/26/2025 Refill [facility] [address] [place] [address] Clair Lombardi MD 08/23/2025 Refill [facility] [address] [place] [address] Marlyn Oliva MD 08/02/2025 Telephone [facility] [address] [place] [address] Marisabel Michel MD Durable Medical Equipment ([place]: Requested Documentation) 06/22/2025 Telephone [facility] [address] [place] [address] Marisabel Michel MD medical necessity 06/16/2025 Refill [facility] [address] [place] [address] Marisabel Michel MD 06/09/2025 Telephone [facility] [address] [place] [phone] Marisabel Michel MD Durable Medical Equipment (Med Necessity Letter: Hospital Bed) from Last 3 Months Immunizations Immunization Administration Dates Next Due Hep B, adult 01/13/2003,07/29/2002,07/01/2002 Influenza injectable quadriv alent IIV4 with preservative 10/05/2018,08/24/2017,09/02/2016,08/29 Influenza injectable quadriv alent preservative free 12/15/2023,10/28/2022,08/26/2021,08/14,08/25/2019 Influenza, IIV3, injectable 09/12/2014,0 08/15/2011,10/04/2010,08/06,08/29/2008,09/13/2007,10/13/2006 Influenza, Split (incl. irineo fied surface antigen) 08/09/2013,09/15/2012 Influenza, seasonal, injecta ble, preservative free 09/05/2025,09/19/2024 MMR 05/06/2002,04/01/2002 Moderna Covid-19 Vaccine 12+ 04/23/2022, 10/30/2021,02/07/2021,01/10 Moderna Covid-19 Vaccine 6+ Bivalent 11/05/2022 Pfizer Covid-19 Vaccine 12+ 09/05/2025,,12/15/2023 Pneumococcal Conjugate PCV 20 12/15/2023 Pneumococcal Polysaccharide [...] 20 09/05/2025 2:32 PM EDT Oxygen Saturation 97% 06/05/2025 2:08 PM EDT Inhaled Oxygen Concentration - - Weight 79.4 kg (175 lb) 09/05/2025 2:32 PM EDT Height 152.4 cm (5') 06/05/2025 2:08 PM EDT Body Mass Index 34.18 06/05/2025 2:08 PM EDT Plan of Treatment Health Maintenance Due Date Last Done Comments CT Colonography 1970 FIT DNA/Cologuard 1970 FIT 1970 FOBT 1970 Sigmoidoscopy 1970 Pap Smear 1991 HPV/Cotest 2000 Alcohol/Substance Use Screening 09/19/2025 09/19/2024 Mammogram 03/21/2026 03/21/2024, 01/22, 02/12/2022, Additional history exists Depression Screening 06/05/2026 06/05/2025, 06/05/20 25 Disability Screening 06/05/2026 06/05/2025 SDOH Screening 06/05/2026 06/05/2025 Tobacco Screening 06/05/2026 06/05/2025 Colonoscopy 06/12/2026 06/12/2021 Colorectal Cancer Screening 06/12/2026 Diabetes: Hemoglobin A1C 08/28/2026 025, 04/07/2025, 08/02/2024, Additional history exists Lipid Panel 04/07/2030 04/07/2025, 11/23, 07/09/2023, Additional history exists DTaP/Tdap/Td Vaccines (3 - Td or Tdap) 10/28/2031 10/28/2021, 07/09/2011, 04/01/2002 RSV Patients and Patients Aged 60 years or older (1 - 1-dose 75+ series) 2045 Hepatitis B Vaccines Completed 01/13/2003, 07/29/2002, 07/01/2002 Zoster Vaccines Completed 04/24/2022, 01/21/2022 Pneumococcal Vaccine: 50+ Years Completed 12/15/2023, 07/12/2009 COVID-19 Vaccine Completed 09/05/2025, , 12/15/2023, Additional history exists Influenza Vaccine Completed 09/05/2025, , 12/15/2023, Additional history exists Cervical Cancer Screening Discontinued [...] Date/Time Associated Diagnosis Comments HEMOGLOBIN A1C Routine 08/28/2025 4:22 PM EDT Prediabetes LIPID PANEL WITH REFLEX TO DIRECT LDL Routine 04/07/2025 3:01 PM EDT Screening for lipid disorders BI MAMMOGRAM SCREENING TOMOSYNTHESIS BILATERAL Routine 03/21/2024 1:10 PM EDT HM COLONOSCOPY Routine 06/12/2021 from Last 3 Months or Most Recently Relevant to Health Maintenance Results * Hemoglobin A1c (08/28/2025 4:22 PM EDT) Hemoglobin A1c 6.0 <6.0 % [facility] Comment:Hemoglobin A1C Refer ence Range Adults: 4.8 - 6.0 % Non diabetic: < 6.0 % Goal: < 7.0 %Additional Action Suggested: > 8.0 %Note: Hemoglobin A1c results are invalid for patients with abnormal amounts of HbF. Blood transfusions may impact the HbA1c concentration in the patient sample. Estimated Average Glucose 126 mg/dL [facility] Comment:eAG = Estimated ave rage glucose which is %A1C expressed asaverage glucose, using the formula of the V5F-OqnkxikSmstxde Glucose study (ADAG), Diabetes Care, Vol.31,#8,Jun. 2007 Blood Venous blood specimen / Unknown 08/28/2025 4:22 PM EDT 08/28/2025 4:22 PM EDT Marisabel Michel MD LAB BLOOD ORDERABLES Final Resul t Performing Organization Address [facility] Co de Phone Number [facility] [address] [place] [address] [phone] * (ABNORMAL) Lipid Panel with Reflex to Direct LDL (04/07/2025 3:01 PM EDT) Triglycerides 100 <150 mg/dL [facility] Comment:Desirable Triglyceri de: less than 150 mg/dLBorderline High Triglyceride 150-199 mg/dLHigh Triglyceride: 200-499 mg/dLVery High Triglyceride: greater than or equal to 5OO mg/dL Cholesterol 196 <200 mg/dL [facility] Comment:Desirable Cholestero l: less than 200 mg/dLBorderline High Cholesterol: 200-239 mg/dLHigh Cholesterol: greater than 239 mg/dL LDL Cholesterol Calculated 130(H) <100 mg/dL [facility] Comment:Desirable LDL: less than 100 mg/dLNear Optimal/Above Optimal LDL: 110- 129 mg/dLBorderline High LDL: 130-159 mg/dLHigh LDL: 160-189 mg/dLVery High LDL: greater than or equal to 190 mg/dL HDL Cholesterol 46 >40 mg/dL [facility] Comment:Desirable HDL: great er than 40 mg/dL Note: This HDL assay may give artificially low results in patients with liver disease. Blood 04/07/2025 3:01 PM EDT 04/07/2025 3:01 PM EDT Marisabel Michel MD LAB BLOOD ORDERABLES Final Resul t Performing Organization Address City/[facility]/ZIP Co de Phone Number [facility] [address] [place] [address] [phone] * BI Mammogram Screening Tomosynthesis Bilateral (03/21/2024 1:10 PM EDT) Anatomical Region Laterality Modality Breast Bilateral Mammography 03/21/2024 1:10 PM EDT Narrative 04/17/2024 6:32 AM EDT [facility] [address] [place] [address] Dr. Gibson, [place] [address] Mammography Report Signed Patient: Radha Kimball MR#: [id number] : 1970 Acct:[id number] Age/Sex: 53 / F ADM Date: 03/21/24 Loc: HO.MAMMO Attending Dr: Marisabel Michel MD Ordering Physician: Marisabel Michel MD Results: 1Negative Date of Service: 03/21/24 Follow Up: 1 Year From Orig inal Mammogram Procedure(s): MM tomosynthesis screening BI Accession Number(s): [id number] cc: Marisabel Michel MD EXAMINATION: MM SCREENING [...] in OV> 04/17/24 0629 DD/ 1310 TD/TT: Carpet Renovator: Procedure Note Donotuseinterpreter, Image - 04/17/2024 [facility] [address] [place] [address] Dr. Gibson, [place] [address] Mammography Report Signed Patient: Radha Kimball#: [id number] : 1970Acct:[id number] Age/Sex: 53 / FADM Date: 03/21/24 Loc: HO.MAMMO Attending Dr: Marisabel Michel MD Ordering Physician: Marisabel Michel MDResults: 1Negative Date of Service: 03/21/24Follow Up: 1 Year From Orig ina Mammogram Procedure(s): MM tomosynthesis screening BI Accession Number(s): [id number] cc: Marisabel Michel MD EXAMINATION: MM SCREENING [...] in OV> 04/17/24 0629 DD/ 1310 TD/TT: Carpet Renovator: Marisabel Michel MD IMG BI PROCEDURES Final Result * Hm Colonoscopy (06/12/2021) Colonoscopy Normal Normal George Lambert MD HEALTH MAINTENANCE Edited Result - Final from Last 3 Months or Most Recently Relevant to Health Maintenance Insurance [employer] < [address] [place] [id number] Care Teams Musical Instrument Maker Or Repairer Relationship Specialty Start Date End Date Marisabel Michel MD [address] [place] [phone] PCP - General Family Medicine 09/04/11
--- OUTSIDE RECORDS SUMMARY | 2025-09-07 18:25 | XMS_ITS | Encounter Summary ---
Author Organization [employer] Address [address] [facility] [address]t [place] [address] Care Team Providers Care Librarian Specialist Name Role Phone Marisabel Michel MD Primary Care Provider [phone] Reason for Visit * Reason Onset Date Comments Med Refill 09/15/2023 Encounter Details Date Type Department Care Team ([facility] st Contact Info) Description 09/15/2023 Telephone [facility] [address] [place], [place] [phone] Marisabel Michel MD [address] [place], [place] [phone] Med Refill Social History Tobacco Use Types [...] t he electric, gas, oil or water [employer] threatened to shut off services in your [...] documented as of this encounter Care Teams Librarian Specialist Relationship Specialty Start Date End Date Marisabel Michel MD [address] [place] [phone] PCP - General Family Medicine 09/04/11 documented as of this encounter
--- OUTSIDE RECORDS SUMMARY | 2025-09-07 18:25 | XMS_ITS | Encounter Summary ---
Author Organization [employer] Address [address]t [place] [address] Care Team Providers Care Mat Weaver Name Role Phone Marisabel Michel MD Primary Care Provider [phone] Encounter Details Date Type Department Care Team ([facility] st Contact Info) Description 08/05/2024 Orders Only [facility] MEDICINE [address] [place], [place] [phone] Marisabel Michel MD [address] [place] [address] Acute right ankle pain (Primary Dx); Cellulitis [...] Sedimentation Rate 56(H) 0 - 20 MM/HR [facility] Comment:Patients with polycy themia and many hemoglobin abnormalitiesmay have depressed sed rates whereas patients with anemiamay have elevated sed rates. Blood Venous blood specimen / Unknown 08/30/2024 4:50 PM EDT 08/30/2024 5:01 PM EDT us Marisabel Michel MD LAB BLOOD ORDERABLES Final Resul t [facility] [address] [place] [phone] * (ABNORMAL) Basic Metabolic Panel (08/30/2024 4:50 PM EDT) Sodium 140 135 - 145 mmol/L [facility] Potassium 3.6 3.3 - 5.1 mmol/L [facility] Chloride 104 96 - 108 mmol/L [facility] Carbon Dioxide 25 22 - 29 mmol/L [facility] Anion Gap 15 12 - 20 [facility] Urea Nitrogen (BUN) 16 9 - 16 mg/dL [facility] Creatinine, Serum 0.77 0.5 - 1.4 mg/dL [facility] Estimated Glomerular Filt Rate >60 [facility] Comment:NOTE: For -Am erican individuals, multiply the result by 1.210.Chronic Kidney Disease: Estimated GFR < 60 mL/min/1.42e2Axvqwv Kidney Disease: Estimated GFR < 15 mL/min/1.73m2 Glucose 93 60 - 115 mg/dL [facility] Calcium 10.3(H) 8.4 - 10.2 mg/dL [facility] Blood Venous blood specimen / Unknown 08/30/2024 4:50 PM EDT 08/30/2024 5:01 PM EDT Marisabel Michel MD LAB BLOOD ORDERABLES Final Resul t Performing Organization Address [facility]/ZIP Co de Phone Number [facility] [address] [place] [address] [phone] * Magnesium (08/30/2024 4:50 PM EDT) Magnesium 2.3 1.6 - 2.6 mg/dL [facility] Blood Venous blood specimen / Unknown 08/30/2024 4:50 PM EDT 08/30/2024 5:01 PM EDT Marisabel Michel MD LAB BLOOD ORDERABLES Final Resul t Performing Organization Address [facility] de Phone Number [facility] [address] [place] [phone] * (ABNORMAL) Reticulocyte Count (08/30/2024 4:50 PM EDT) [facility] Reticulocytes Absolute 0.095 0.026 - 0.095 X10*6/uL [facility] Immature Retic Fraction 8.3 3.0 - 15.9 % [facility] Retic HGB Equivalent 31.7 30.0 - 35.0 pg [facility] Reticulocyte Percent 2.1(H) 0.5 - 1.8 % [facility] Blood Venous blood specimen / Unknown 08/30/2024 4:50 PM EDT 08/30/2024 5:01 PM EDT Marisabel Michel MD LAB BLOOD ORDERABLES Final Resul t Performing Organization Address [facility] Co de Phone Number [facility] [address] [place] [address] [phone] * (ABNORMAL) Iron And Total Iron Binding Capacity (08/30/2024 4:50 PM EDT) Iron 38 30 - 160 mcg/dL [facility] Total Iron Binding Capacity 206(L) 228 - 428 mcg/dL [facility] Percent Iron Saturation 18 15 - 50 % [facility] Unsaturated Iron Binding 168 ug/dL [facility] Blood Venous blood specimen / Unknown 08/30/2024 4:50 PM EDT 08/30/2024 5:01 PM EDT Marisabel Michel MD LAB BLOOD ORDERABLES Final Resul t Performing Organization Address [facility] Co de Phone Number [facility] [address] [place] [phone] * (ABNORMAL) Ferritin (08/30/2024 4:50 PM EDT) Ferritin 283(H) 10 - 250 ng/mL [facility] Blood Venous blood specimen / Unknown 08/30/2024 4:50 PM EDT 08/30/2024 5:01 PM EDT Marisabel Michel MD LAB BLOOD ORDERABLES Final Resul t Performing Organization Address [facility] Co de Phone Number [facility] [address] [place] [phone] * (ABNORMAL) C-reactive Protein (08/30/2024 4:50 PM EDT) C Reactive Protein 1.83(H) < or = 0.50 mg/dL [facility] Blood Venous blood specimen / Unknown 08/30/2024 4:50 PM EDT 08/30/2024 5:01 PM EDT Marisabel Michel MD LAB BLOOD ORDERABLES Final Resul t Performing Organization Address [facility] Co de Phone Number [facility] [address] [place] [phone] * (ABNORMAL) CBC auto differential (08/30/2024 4:50 PM EDT) White Blood Count 9.6 4.8 - 10.8 X10*3/uL [facility] Red Blood Count 4.49 4.20 - 5.50 X10*6/uL [facility] Hemoglobin 12.8 12.0 - 16.0 g/dl [facility] Hematocrit 39.2 37.0 - 47.0 % [facility] Mean Corpuscular Volume 87.3 80.0 - 98.0 fL [facility] Mean Corpuscular Hemoglobin 28.5 27.0 - 33.0 pg [facility] Mean Corpuscular HGB Conc 32.7 31.0 - 35.0 g/dl [facility] Red Cell Distribution Width 13.5 11.0 - 16.0 % [facility] Platelet Count 248 160 - 400 X10*3/uL [facility] Mean Platelet Volume 11.9 9.4 - 12.3 fL [facility] Neutrophils Percent Auto 70.8 45 - 73 % [facility] Imm Gran Pct Auto 0.8(H) 0.0 - 0.4 % [facility] Lymphocytes Percent Auto 17.2(L) 20 - 40 % [facility] Monocytes Percent Auto 6.7 2 - 11 % [facility] Eosinophils Percent Auto 4.0 0 - 4 % [facility] Basophils Percent Auto 0.5 0 - 2 % [facility] NRBC Pct Auto 0.0 0.0 - 0.2 /100WBC [facility] Neutrophils Absolute Auto 6.8 2.0 - 8.3 x10*3/uL [facility] Imm Gran Abs Auto 0.08(H) 0.00 - 0.03 X10*3/uL [facility] Lymphocytes Absolute Auto 1.7 1.2 - 4.9 X10*3/uL [facility] Monocytes Absolute Auto 0.6 0.1 - 1.2 X10*3/uL [facility] Eosinophils Absolute Auto 0.4 0.0 - 0.4 X10*3/uL [facility] Basophils Absolute Auto 0.1 0.0 - 0.2 X10*3/uL [facility] NRBC Abs Auto 0.000 0.0 - 0.012 X10*3/uL [facility] Blood Venous blood specimen / Unknown 08/30/2024 4:50 PM EDT 08/30/2024 5:01 PM EDT us Marisabel Michle MD LAB BLOOD ORDERABLES Final Resul t [facility] [address] [place] [phone] documented in this encounter Visit Diagnoses Diagnosis Acute right ankle pain- Primary Cellulitis of right lower leg Anemia, unspecified type Hypokalemia Hypopotassemia documented in this encounter Additional Health Concerns Assessment Noted Time PHQ-9 Depression Total Score: 0 03/29/20 24 3:23 PM EDT documented as of this encounter Care Teams Mat Weaver Relationship Specialty Start Date End Date Marisabel Michel MD [address] [place] [phone] PCP - General Family Medicine 09/04/11 documented as of this encounter
--- OUTSIDE RECORDS SUMMARY | 2025-09-07 18:25 | XMS_ITS | Encounter Summary ---
Author Organization [employer] Address [address] [facility] 7t [place] [address] Care Team Providers Care Fixed Wing Aircraft Flight Mechanic Name Role Phone Marisabel Michel MD Primary Care Provider [phone] Encounter Details Date Type Department Care Team ([facility] st Contact Info) Description 03/28/2025 Orders Only [facility] MEDICINE [address] [place], [place] [phone] Marisabel Michel MD [address] [place], [place] [phone] Prediabetes (Primary Dx); Screening for lipid disorders; [...] EDT) Sodium 142 135 - 145 mmol/L [facility] Potassium 3.7 3.3 - 5.1 mmol/L [facility] Chloride 107 96 - 108 mmol/L [facility] Carbon Dioxide 25 22 - 29 mmol/L [facility] Anion Gap 14 12 - 20 [facility] Urea Nitrogen (BUN) 17(H) 9 - 16 mg/dL [facility] Creatinine, Serum 0.64 0.5 - 1.4 mg/dL [facility] Estimated Glomerular Filt Rate >60 [facility] Comment:Chronic Kidney Disea se: Estimated GFR < 60 mL/min/1.30s0Bvsqyk Kidney Disease: Estimated GFR < 15 mL/min/1.73m2 Glucose 90 60 - 115 mg/dL [facility] Calcium 9.7 8.4 - 10.2 mg/dL [facility] Bilirubin, Total 0.4 0.0 - 1.0 mg/dL [facility] Aspartate Amino Transferase 28 5 - 31 U/L [facility] Alanine Aminotransferase 27 0 - 31 U/L [facility] Total Protein 7.1 6.5 - 8.0 g/dL [facility] Albumin Level 4.2 3.5 - 5.0 g/dL [facility] Alkaline Phosphatase 62 39 - 117 U/L [facility] Blood Venous blood specimen / Unknown 04/07/2025 3:01 PM EDT 04/07/2025 3:01 PM EDT us Marisabel Michel MD LAB BLOOD ORDERABLES Final Resul t [facility] [address] [place] [phone] * (ABNORMAL) Hemoglobin A1c (04/07/2025 3:01 PM EDT) Hemoglobin A1c 6.3(H) <6.0 % [facility] Comment:Hemoglobin A1C Refer ence Range Adults: 4.8 - 6.0 % Non diabetic: < 6.0 % Goal: < 7.0 %Additional Action Suggested: > 8.0 %Note: Hemoglobin A1c results are invalid for patients with abnormal amounts of HbF. Blood transfusions may impact the HbA1c concentration in the patient sample. Estimated Average Glucose 134 mg/dL [facility] Comment:eAG = Estimated ave rage glucose which is %A1C expressed asaverage glucose, using the formula of the A3J-[id number] Glucose study (ADAG), Diabetes Care, Vol.31,#8,Jun. 2007 Blood Venous blood specimen / Unknown 04/07/2025 3:01 PM EDT 04/07/2025 3:01 PM EDT Marisabel Michel MD LAB BLOOD ORDERABLES Final Resul t Performing Organization Address [facility] Co de Phone Number [facility] [address] [place] [phone] * (ABNORMAL) Lipid Panel with Reflex to Direct LDL (04/07/2025 3:01 PM EDT) Triglycerides 100 <150 mg/dL [facility] Comment:Desirable Triglyceri de: less than 150 mg/dLBorderline High Triglyceride 150-199 mg/dLHigh Triglyceride: 200-499 mg/dLVery High Triglyceride: greater than or equal to 5OO mg/dL Cholesterol 196 <200 mg/dL [facility] Comment:Desirable Cholestero l: less than 200 mg/dLBorderline High Cholesterol: 200-239 mg/dLHigh Cholesterol: greater than 239 mg/dL LDL Cholesterol Calculated 130(H) <100 mg/dL [facility] Comment:Desirable LDL: less than 100 mg/dLNear Optimal/Above Optimal LDL: 110- 129 mg/dLBorderline High LDL: 130-159 mg/dLHigh LDL: 160-189 mg/dLVery High LDL: greater than or equal to 190 mg/dL HDL Cholesterol 46 >40 mg/dL [facility] Comment:Desirable HDL: great er than 40 mg/dL Note: This HDL assay may give artificially low results in patients with liver disease. Blood 04/07/2025 3:01 PM EDT 04/07/2025 3:01 PM EDT us Marisabel Michel MD LAB BLOOD ORDERABLES Final Resul t Performing Organization Address [facility]/ZIP Co de Phone Number [facility] [address] [place] [phone] documented in this encounter Visit Diagnoses Diagnosis Prediabetes- Primary Other abnormal glucose Screening for lipid disorders Screening for diabetes mellitus Hypokalemia Hypopotassemia documented in this encounter Additional Health Concerns Assessment Noted Time PHQ-9 Depression Total Score: 0 03/29/20 24 3:23 PM EDT documented as of this encounter Care Teams Fixed Wing Aircraft Flight Mechanic Relationship Specialty Start Date End Date Marisabel Michel MD [address] [place] [address] PCP - General Family Medicine 09/04/11 documented as of this encounter
--- OUTSIDE RECORDS SUMMARY | 2025-09-07 18:25 | XMS_ITS | Encounter Summary ---
Author Organization [employer] Address [address] [facility] 7t [place] [address] Care Team Providers Care Relay Tester Helper Name Role Phone Marisabel Michel MD Primary Care Provider [phone] Encounter Details Date Type Department Care Team ([facility] st Contact Info) Description 08/23/2024 Orders Only [facility] MEDICINE [address] [place], [place] [phone] Marisabel Michel MD [address] [place] [address] Social History Tobacco Use Types Packs/Day Years [...] documented as of this encounter Care Teams Relay Tester Helper Relationship Specialty Start Date End Date Marisabel Michel MD [address] [place] [address] PCP - General Family Medicine 09/04/11 documented as of this encounter
--- OUTSIDE RECORDS SUMMARY | 2025-09-07 18:25 | XMS_ITS | Encounter Summary ---
Author Organization [employer] Address [address] [facility] 7t [place] [address] Care Team Providers Care Oil Distributor Name Role Phone Marisabel Michel MD Primary Care Provider [phone] Reason for Visit * Reason Onset Date Comments Appointment Request 01/23/2023 Encounter Details Date Type Department Care Team ([facility] st Contact Info) Description 01/23/2023 Telephone [facility] MEDICINE [address] [place], [place] [phone] Marisabel Michel MD [address] [place] [address] Appointment Request Social History Tobacco Use Types [...] encounter Miscellaneous Notes * Telephone Encounter - Elíasericksonvaishaliconcetta Ghassan Moran - 01/23/2023 3:57 PM EST Tc from pt returning phone regarding to a follow up appt with pcp. Please contact pt at [phone] documented in this encounter Plan of Treatment Not on file documented as of this encounter Visit Diagnoses Not on filedocumented in this encounter Care Teams Oil Distributor Relationship Specialty Start Date End Date Marisabel Michel MD [address] [place] [address] PCP - General Family Medicine 09/04/11 documented as of this encounter
--- OUTSIDE RECORDS SUMMARY | 2025-09-07 18:25 | XMS_ITS | Encounter Summary ---
Author Organization [employer] Address [address] [facility] 7t [place] [address] Care Team Providers Care Ticketer Name Role Phone Marisabel Michel MD Primary Care Provider [phone] Reason for Visit * Reason Comments Med Refill Encounter Details Date Type Department Care Team ([facility] st Contact Info) Description 10/08/2023 Refill [facility] [address] [place], [place] [phone] Angela Kirkland DO [address] [place], [place] [phone] Osteopenia, unspecified location Social History Tobacco Use [...] the past 12 months, has t he [employer], gas, oil or water company threatened to [...] documented as of this encounter Care Teams Ticketer Relationship Specialty Start Date End Date Marisabel Michel MD [address] [place] [address] PCP - General Family Medicine 09/04/11 documented as of this encounter
--- OUTSIDE RECORDS SUMMARY | 2025-09-07 18:25 | XMS_ITS | Encounter Summary ---
Author Organization [employer] Address [address] [facility] 7t [place] [address] Care Team Providers Care Environmental Conflict Manager Name Role Phone Marisabel Michel MD Primary Care Provider Reason for Visit * Reason Comments Med Refill Encounter Details Date Type Department Care Team ([facility] st Contact Info) Description 12/11/2024 Refill [facility] MEDICINE 230 [place], [place] [phone] Marisabel Michel MD 230 [place], [place] [phone] Social History Tobacco Use Types Packs/Day Years [...] documented as of this encounter Care Teams Environmental Conflict Manager Relationship Specialty Start Date End Date Marisabel Michel MD [address] [place] [address] PCP - General Family Medicine 09/04/11 documented as of this encounter
--- OUTSIDE RECORDS SUMMARY | 2025-09-07 18:25 | XMS_ITS | Encounter Summary ---
Author Organization [employer] Address [address] [facility] [address] [place] [address] Care Team Providers Care Commercial Sales Representative Name Role Phone Marisabel Michel MD Primary Care Provider [phone] Encounter Details Date Type Department Care Team ([facility] st Contact Info) Description 10/21/2023 Orders Only [facility] MEDICINE [address] [place], [place] [phone] Marisabel Michel MD [address] [place] [address] Open wound of right lower leg due [...] documented as of this encounter Care Teams Commercial Sales Representative Relationship Specialty Start Date End Date Marisabel Michel MD [address] [place] [phone] PCP - General Family Medicine 09/04/11 documented as of this encounter
--- OUTSIDE RECORDS SUMMARY | 2025-09-07 18:25 | XMS_ITS | Encounter Summary ---
Author Organization [employer] Address [address] [facility] [address] [address] [place] [address] Care Team Providers Care Computational Theory Scientist Name Role Phone Marisabel Michel MD Primary Care Provider [phone] Encounter Details Date Type Department Care Team ([facility] st Contact Info) Description 10/26/2023 Orders Only [facility] MEDICINE 230 [place], [place] [phone] Marisabel Michel MD 230 [place], [place] [phone] Social History Tobacco Use Types Packs/Day Years [...] documented as of this encounter Care Teams Computational Theory Scientist Relationship Specialty Start Date End Date Marisabel Michel MD [address] [place] [address] PCP - General Family Medicine 09/04/11 documented as of this encounter
--- OUTSIDE RECORDS SUMMARY | 2025-09-07 18:25 | XMS_ITS | Encounter Summary ---
Author Organization [employer] Address [address] [facility] 7t [place] [address] Care Team Providers Care Biopharmaceutical Rep Name Role Phone Marisabel Michel MD Primary Care Provider [phone] Encounter Details Date Type Department Care Team ([facility] st Contact Info) Description 03/30/[address] [facility] MEDICINE [address] [place], [place] [phone] Marisabel Michel MD 230 [place] [address] Social History Tobacco Use Types Packs/Day Years [...] documented as of this encounter Care Teams Biopharmaceutical Rep Relationship Specialty Start Date End Date Marisabel Michel MD [address] [place] [address] PCP - General Family Medicine 09/04/11 documented as of this encounter
--- OUTSIDE RECORDS SUMMARY | 2025-09-07 18:25 | XMS_ITS | Encounter Summary ---
Author Organization [employer] Address [address] [place] [address] [place] [address] Care Team Providers Care Mine Manager Name Role Phone Marisabel Michel MD Primary Care Provider [phone] Reason for Referral * Consultation (Routine) - Closed Specialty Diagnoses / Procedures Referred By Vee t Referred To Contact Physical Therapy Diagnoses Cerebral palsy, unspecified type (CMS/HCC) (HCC) Wheelchair dependence Marisaebl Michel MD [address] [place] [address] Phone: tel: fax: Referral ID Status Reason Start Date Expiration Date V isits Requested Visits Authorized [id number] Closed Specialty Services Required 11/25/2024 11/25/2025 1 1 * Consultation (Routine) - Closed Specialty Diagnoses / Procedures Referred By Contcarlos t Referred To Contact Occupational Therapy Diagnoses Cerebral palsy, unspecified type (CMS/HCC) (HCC) Wheelchair dependence Marisabel Michel MD [address] [place] [address] Phone: tel: fax: Referral ID Status Reason Start Date Expiration Date V isits Requested Visits Authorized [id number] Closed Specialty Services Required 11/25/2024 11/25/2025 1 1 Encounter Details Date Type Department Care Team (Late st Contact Info) Description 11/25/2024 Orders Only [facility] MEDICINE [address] [place] [phone] Marisabel Michel MD [address] [place] [address] Cerebral palsy, unspecified type (CMS/HCC) (Primary Dx); [...] documented as of this encounter Care Teams Mine Manager Relationship Specialty Start Date End Date Marisabel Michel MD [address] [place] [phone] PCP - General Family Medicine 09/04/11 documented as of this encounter
--- OUTSIDE RECORDS SUMMARY | 2025-09-07 18:26 | XMS_ITS | Patient Health Record ---
Author Organization [facility] Address [address] [place] [address] Care Team Providers Care Car Checker Name Role Phone Bindusanjay Marisabel Primary Care Provider Yoni Glover Unavailable [phone] Halle Bustillo Unavailable [phone] Allergies Allergen (clinical drug ingredient) Drug/Non Drug [...] Orally; Duration: 30 day(s) Active Saline Nasal [place] as needed A ctive Meclizine HCl 12.5 [...] Ipratropium-Albuterol Active Flovent HFA Not-Taki ng Ipratropium [place] Active Cyproheptadine as needed Activ e Vitamin [...] Problem Acquired hammer toe of right foot (2670382876284416) Other hammer toe(s) (acquired), right foot (M20.41) Active confirmed Problem Acquired hammer toe of left foot (8043762527717311) Other hammer toe(s) (acquired), left foot (M20.42) Active confirmed Problem Bilateral atherosclerosis of arteries of lower limbs (disorder) (62037883363368590 ) Atherosclerosis of [place] artery of both lower extremities, with unspecified presence of clinical manifestation (I70.203) Active confirmed Q7(A), Q8(2B), Q9(1B,2 C) Vital Signs Heart Rate 71 /min 05/08/2025 Blood pressure diastolic 69 mm Hg 08/02/2025 Height 5ft in 08/02/2025 Blood pressure systolic 133 mm Hg 08/02/2025 Weight 178 lbs 08/02/2025 BMI 34.76 kg/m2 08/02/2025 Procedures Procedure Date Ordered Date Performed Result Body Sit e 19535-RRCNXNX NAIL, 6 OR MORE 10/07/2024 N/A 02643-JBWS SKIN LESIONS, 2 TO 4 10/07/2024 N/A 61739-OMPHNVL NAIL, 6 OR MORE 01/30/2025 N/A 43055- Debride <25 sq cm 01/30/2025 N/A 15367-MMSI SKIN LESIONS, 2 TO 4 01/30/2025 N/A 44164-GHLLSVD NAIL, 6 OR MORE 05/08/2025 N/A 03832-JSOJ SKIN LESIONS, 2 TO 4 05/08/2025 N/A 36607-RNPGIIT NAIL, 6 OR MORE 08/02/2025 N/A 18628-ATPH SKIN LESIONS, 2 TO 4 08/02/2025 N/A Encounters Encounter Location Date Provider [facility] [address] 10/07/2024 Halle Bustillo Type 2 diabetes mellitus with diabetic polyneuropathy E11.42 and Tinea unguium B35.1 [facility] [address] 01/30/2025 Yoni Bhatt Type 2 diabetes mellitus with diabetic peripheral angiopathy without gangrene E11.51 ; Tinea unguium B35.1 ; Pain in right toe(s) M79.674 ; Pain in left toe(s) M79.675 ; Other hammer toe(s) (acquired), left foot M20.42 ; Other hammer toe(s) (acquired), right foot M20.41 and Skin ulcer of toe of left foot, limited to breakdown of skin L97.521 [place] [address] [address] 05/08/2025 Yoni Bhatt Atherosclerosis of [place] artery of both lower extremities, with unspecified presence of clinical manifestation I70.203 ; Tinea unguium B35.1 ; Pain in right toe(s) M79.674 ; Pain in left toe(s) M79.675 and Skin ulcer of toe of left foot, limited to breakdown of skin L97.[address] [address] 08/02/2025 Yoni Bhatt Atherosclerosis of [place] artery of both lower extremities, with unspecified presence of clinical manifestation I70.203 ; Tinea unguium B35.1 ; Pain in right toe(s) M79.674 ; Pain in left toe(s) M79.675 ; Other hammer toe(s) (acquired), left foot M20.42 and Other hammer toe(s) (acquired), right foot M20.[address] [address] 06/07/2025 Yoni Bhatt [address] [address] 04/20/2025 Yoni Bhatt [address] [address] 05/19/2025 Yoni Bhatt Assessments Encounter Date Diagnosis (ICD Code) Assessment Notes Treatment Notes Treatment Clinical Notes Section Notes 10/07/2024 Type 2 diabetes mellitus with diabetic polyneuropathy (ICD-10 - E11.42) 10/07/2024 Tinea unguium (ICD-10 - B35.1) 01/30/2025 Type 2 diabetes mellitus with diabetic peripheral angiopathy without gangrene (ICD-10 - E11.51) Q7(A), Q8(2B), Q9(1B,2C) 05/08/2025 Tinea unguium (ICD-10 - B35.1) 05/08/2025 Atherosclerosis of [place] artery of both lower extremities, with unspecified presence of clinical manifestation (ICD-10 - I70.203) Q7(A), Q8(2B), Q9(1B,2C) 08/02/2025 Tinea unguium (ICD-10 - B35.1) 08/02/2025 Atherosclerosis of [place] artery of both lower extremities, with unspecified presence of clinical manifestation (ICD-10 - I70.203) Q7(A), Q8(2B), Q9(1B,2C) 08/02/2025 Pain in right toe(s) (ICD-10 - M79.674) 05/08/2025 Pain in right toe(s) (ICD-10 - M79.674) 01/30/2025 Tinea unguium (ICD-10 - B35.1) 05/08/2025 Pain in left toe(s) (ICD-10 - M79.675) 01/30/2025 Pain in right toe(s) (ICD-10 - M79.674) 08/02/2025 Pain in left toe(s) (ICD-10 - M79.675) 08/02/2025 Other hammer toe(s) (acquired), left foot (ICD-10 - M20.42) 05/08/2025 Skin ulcer of toe of left foot, limited to breakdown of skin (ICD-10 - L97.521) 01/30/2025 Pain in left toe(s) (ICD-10 - M79.675) 01/30/2025 Other hammer toe(s) (acquired), left foot (ICD-10 - M20.42) 08/02/2025 Other hammer toe(s) (acquired), right foot (ICD-10 - M20.41) 01/30/2025 Skin ulcer of toe of left foot, limited to breakdown of skin (ICD-10 - L97.521) Response to treatment Nonapplicable Patient Educated with: WOUND CARE INSTRUCTIONS. pdf (WOUND CARE INSTRUCTIONS. pdf) 01/30/2025 Other hammer toe(s) (acquired), right foot (ICD-10 - M20.41) Patient Educated with: DIABETIC FOOT CARE INSTRUCTIONS. pdf (DIABETIC FOOT CARE INSTRUCTIONS. pdf) 01/30/2025 Other Plan Of Treatment Pending Test Test Name Order Date 23004-PRTJDSA NAIL, 6 OR MORE 06/02/2017 21003-KXBDMDA NAIL, 6 OR MORE 09/01/2017 95402-PGATRDL NAIL, 6 OR MORE 12/22/2017 05653-XMGBBEU NAIL, 6 OR MORE 03/23/2018 20716-KIXWIVZ NAIL, 6 OR MORE 06/01/2018 84142-ISZNONG NAIL, 6 OR MORE 10/29/2018 79194-MKRPWOF NAIL, 6 OR MORE 08/06/2018 48998-XXKZDWQ NAIL, 6 OR MORE 10/07/2024 30122-KDQITBX NAIL, 6 OR MORE 01/30/2025 62868-KMVWLTU NAIL, 6 OR MORE 05/08/2025 68761-SHEWHJP NAIL, 6 OR MORE 08/02/2025 15788-Bpqyyyrl Plate 08/06/2018 42252-Jntynsks Plate 12/22/2017 98598- Debride <25 sq cm 06/22/2018 60189- Debride <25 sq cm 05/03/2024 87504- Debride <25 sq cm 01/30/2025 88144-YLREQUZ SKIN/TISSUE 02/04/2022 28990-FDBNADG SKIN/TISSUE 05/12/2022 25982 I&D ABSCESS- SIMPLE,SINGLE 019 06358 I&D ABSCESS- SIMPLE,SINGLE 020 73951- I&D ABSCESS-COMPLICATED,MULTI 08/2018 94812- I&D ABSCESS-COMPLICATED,MULTI 64804-RFYN SKIN LESIONS, 2 TO 4 06/01/20 18 95446-YJFR SKIN LESIONS, 2 TO 4 08/06/20 18 52695-GATE SKIN LESIONS, 2 TO 4 06/02/20 17 14618-WWQS SKIN LESIONS, 2 TO 4 03/23/20 18 27945-VGCT SKIN LESIONS, 2 TO 4 12/22/19 18 31707-TTJN SKIN LESIONS, 2 TO 4 09/01/20 17 52658-HNEQ SKIN LESIONS, 2 TO 4 10/26/20 20 68210-YCCM SKIN LESIONS, 2 TO 4 01/30/20 21 92540-CYLI SKIN LESIONS, 2 TO 4 04/30/20 21 04168-KQDP SKIN LESIONS, 2 TO 4 07/30/20 21 98927-ITNS SKIN LESIONS, 2 TO 4 10/25/20 21 58216-AQBY SKIN LESIONS, 2 TO 4 12/27/19 22 67803-DAFU SKIN LESIONS, 2 TO 4 02/05/20 22 57251-XWCJ SKIN LESIONS, 2 TO 4 01/24/20 20 12552-ZNES SKIN LESIONS, 2 TO 4 04/24/20 20 71015-CMZT SKIN LESIONS, 2 TO 4 07/24/20 20 95975-AKPW SKIN LESIONS, 2 TO 4 02/09/20 19 25132-MOGI SKIN LESIONS, 2 TO 4 05/10/20 19 77941-UCBC SKIN LESIONS, 2 TO 4 07/26/20 19 78722-CKPK SKIN LESIONS, 2 TO 4 11/08/20 19 32195-PHAX SKIN LESIONS, 2 TO 4 07/01/20 22 49404-THFN SKIN LESIONS, 2 TO 4 10/29/20 18 24729-EVAX SKIN LESIONS, 2 TO 4 01/31/20 25 97040-NFYF SKIN LESIONS, 2 TO 4 10/07/20 24 57064-VAWT SKIN LESIONS, 2 TO 4 08/02/20 25 94898-TXPD SKIN LESIONS, 2 TO 4 05/08/20 25 Next Appt Details Provider Name:Yoni Bhatt , 11/01/2025 03:15:00 PM, [address] [facility], [address], [place], [address], Insurance Providers Payer Name Payer Address Payer Phone Subscriber Number Group Number Insured Name Patient Relationship to Insured Coverage Start Date Coverage End Date [facility] [employer] Claims [address] [place] [id number] Radha Vera Self - patient is the insured 7 Medical (General) History Medical History History ICD Code Arthritis asthma Cerebral palsy Chicken pox Epilepsy Knee Pain Kidney stones Migraines Paralysis Poor circulation Reflux Surgical History Surgery Date(Month/Year) appendectomy 2008 hand/wrist 1983 leg surgery 1981 Hospitalization History Reason Date(Month/Year) [facility] 07/19-07/25 Urgent Care- Pain in ankle- negetive ult rasound and x-ray 04/2019 ER in [place] 02/2018
== END 2025-09-07 14:58 | disposition home or self-care (01) ==
LOC: HO.HOS 14:31
PROVIDERS: PCP Family Medicine; Visit Provider Physician Assistant
DX: M17.0 Bilateral primary osteoarthritis of knee (principal)
CPT/HCPCS: 20610

== ENCOUNTER → 2025-09-07 14:30 | Outpatient (BNVA) | payer OTHER, SELFPAY | PROVIDERS: PCP Family Medicine; Visit Provider Physician Assistant | DX: M17.0 Bilateral primary osteoarthritis of knee (principal) | CPT/HCPCS: 20610; J0665; J1100; J2003 ==

== ENCOUNTER 2025-11-13 19:28 | Emergency (ER) | payer OTHER, SELFPAY ==
--- OUTSIDE RECORDS SUMMARY | 2024-12-30 07:00 | XMS_ITS ---
Author Organization [facility] Address [address] [place] [address] Care Team Providers Care [employer] Parer Name Role Phone Marisabel Michel Primary Care Provider UnavailYoni Deng Unavailable [phone] Halle Bustillo Unavailable [phone] Castro Encounters Encounter Location Date Provider [facility] [address] [place] [id number] 12/30/2024 Halle Bustillo Plan Of Treatment Next Appt Details Provider Name:Yoni Bhatt , 11/21/2025 02:30:00 PM, [address] [place] [address], [id number], Progress Notes * Radha JACKDOB: 1 (54 yo F)Acc No.[id number]:12/30/2024 Progress Note Patient: Radha DIOP Provider: Sherwin Bustillo DPM :1970 A ge:54 Y S ex:Female Date:12/30/2024 Address:[address] [place] [address] Pcp:Marisabel Michel Subjective: * Chief Complaints: * [address] Castro[address] * Medical History: Objective: * Vitals: Assessment: Plan: * Treatment: * Images: * The named appointment provid er may or may not be the originator of this progress note, and it is not deemed complete until electronically signed by the appointment provider. Sign off status: Pending * Provider: Sherwin Bustillo DPM Date: 0 12/30/2024 Generated for Deny Orta/David on: 01/14/2025 05:37 PM EST
--- OUTSIDE RECORDS SUMMARY | 2025-03-03 04:30 | XMS_ITS ---
Author Organization [facility] Address [address] [place] [address] Care Team Providers Care Web Feeder Name Role Phone Marisabel Michel Primary Care Provider UnavailYoni Deng Unavailable [phone] Halle Bustillo Unavailable [phone] REASON FOR VISIT Seen Sooner Encounters Encounter Location Date [facility] [address] [place] [phone] 03/03/2025 Halle Bustillo Plan Of Treatment Next Appt Details Provider Name:Yoni Bhatt , 11/21/2025 02:30:00 PM, [address] [place] [address], [phone], Progress Notes * Radha JACKDOB: 1 (54 yo F)Acc No.[id number]:03/03/2025 Progress Note Patient: Radha DIOP Provider: Sherwin Bustillo DPM :1970 A ge:54 Y S ex:Female Date:03/03/2025 Address:[address] [place] [address] Pcp:Marisabel Michel Subjective: * Chief Complaints: * 1 . Seen Sooner. * Medical History: Objective: * Vitals: Assessment: Plan: * Treatment: * Images: * The named appointment provid er may or may not be the originator of this progress note, and it is not deemed complete until electronically signed by the appointment provider. Sign off status: Pending * Provider: Sherwin Bustillo DPM Date: 0 03/03/2025 Generated for Deny Orta/David on: 1 01/14/2025 05:37 PM EST
--- OUTSIDE RECORDS SUMMARY | 2025-03-24 05:00 | XMS_ITS ---
Author Organization [facility] Address [address] [place] [address] Care Team Providers Care Mate Ship Name Role Phone Marisabel Michel Primary Care Provider UnavailYoni Deng Unavailable [phone] Halle Bustillo Unavailable [phone] Encounters Encounter Location Date Provider Diagnosis [facility] [address] [place] [phone] 03/24/2025 Halle Bustillo Plan Of Treatment Next Appt Details Provider Name:Yoni Bhatt , 11/21/2025 02:30:00 PM, [address] [place] [address], [phone], Progress Notes * Radha JACKDOB: 1 (54 yo F)Acc No.[id number]:03/24/2025 Progress Note Patient: Radha DIOP Provider: Sherwin Bustillo DPM :1970 A ge:54 Y S ex:Female Date:03/24/2025 Address:[address] [place] [address] Pcp:Marisabel Michel Subjective: * Chief Complaints: * * Medical History: Objective: * Vitals: Assessment: Plan: * Treatment: * Images: * The named appointment provid er may or may not be the originator of this progress note, and it is not deemed complete until electronically signed by the appointment provider. Sign off status: Pending * Provider: Sherwin Bustillo DPM Date: 0 03/24/2025 Generated for Deny May on: 01/14/2025 05:37 PM EST
--- OUTSIDE RECORDS SUMMARY | 2025-11-01 10:15 | XMS_ITS ---
Author Organization [facility] Address [address] [place] [address] Care Team Providers Care Varnish Maker Name Role Phone Marisabel Michel Primary Care Provider Unavailabl Yoni Esparza Unavailable [phone] CALLOWAY Encounters Encounter Location Date Provider Diagnosis [facility] [address] [place] [address] 11/01/2025 Yoni Bhatt Plan Of Treatment Next Appt Details Provider Name:Yoni Bhatt , 11/21/2025 02:30:00 PM, [address] [place] [address], [address], Progress Notes * Radha JACKDOB: 1 (54 yo F)Acc No.[id number]:11/01/2025 Progress Note Patient: Gaurav LANZATRISHARadha Provider: Sanjiv Bhatt DPM :1970 A ge:54 Y S ex:Female Date:11/01/2025 Address:[address] [place] [address] Pcp:Marisabel Michel Subjective: * Chief Complaints: * [address] CALLOWAY. * Medical History: Objective: * Vitals: Assessment: Plan: * Treatment: * Images: * The named appointment provid er may or may not be the originator of this progress note, and it is not deemed complete until electronically signed by the appointment provider. Sign off status: Pending * Provider: Sanjiv Bhatt DPM Date: 01/02/2025 Generated for Deny May on: 01/14/2025 05:37 PM EST
--- NOTE | ~2025-11-13 | CT_ITS ---
CLINICAL HISTORY: low back pain, hx kidney stones CT abdomen and pelvis without contrast Comparison: US - US RENAL BI - 04/05/25 14:32 EDT Findings: Partially visualized heart and lung bases are unremarkable. Liver, gallbladder, spleen, and bilateral adrenal glands are unremarkable. Significant fatty replacement of the pancreas. There is mild peripancreatic fat stranding. Nonobstructing stone in the upper pole of the right kidney. Left kidney unremarkable. No hydronephrosis or hydroureter bilaterally. Small hiatal hernia. No bowel obstruction, pneumoperitoneum, or pneumatosis. Colonic diverticulosis without evidence of diverticulitis. Appendectomy. Pelvic contents are unremarkable. Osseous structures are unremarkable. IMPRESSION: Fatty replaced pancreas with mild peripancreatic fat stranding. Possible acute pancreatitis. Correlate with pancreatic enzymes. Nonobstructing right kidney stone. This document has been electronically signed by: Josep Qiu MD on 11/13/2025 23:41:28
[2025-11-13 19:36] VITALS: BP 138/85; PULSE 86; O2SAT 100; BMI 31.4
[2025-11-13 19:39] VITALS: BP 146/98; PULSE 98; TEMP 36.6; O2SAT 98
--- OUTSIDE RECORDS SUMMARY | 2025-11-13 20:10 | XMS_ITS | Encounter Summary ---
Author Organization [employer] Address [address] [facility] [address] 7[address] [place] [address] Care Team Providers Care Regrind Mill Operator Name Role Phone Marisabel Michel MD Primary Care Provider [phone] Encounter Details Date Type Department Care Team ([facility] st Contact Info) Description 03/18/2024 Orders Only [facility] [address] [place], [place] [phone] Marisabel Michel MD [address] [place], [place] [phone] Social History Tobacco Use Types Packs/Day Years [...] Care Team (Late st Contact Info) Description 12/12/2025 2:15 PM EST Office Visit [facility] [address] [facility] [place] [address] Marisabel Michel MD [address] [place], [place] [phone] documented as of this encounter Procedures Procedure Name Priority Date/Time Associated Diagnosis Comments BI MAMMOGRAM SCREENING TOMOSYNTHESIS BILATERAL Routine 03/21/2024 1:10 PM EDT documented in this encounter Results * BI Mammogram Screening Tomosynthesis Bilateral (03/21/2024 1:10 PM EDT) Anatomical Region Laterality Modality Breast Bilateral Mammography 03/21/2024 1:10 PM EDT Narrative 04/17/2024 6:32 AM EDT [facility] [place] [address] Mammography Report Signed Patient: Radha Kimball MR#: [id number] : 1970 Acct:[id number] Age/Sex: 53 / F ADM Date: 03/21/24 Loc: RAFAT Attending Dr: Marisabel Michel MD Ordering Physician: Marisabel Michel MD Results: 1Negative Date of Service: 03/21/24 Follow Up: 1 Year From Orig inal Mammogram Procedure(s): MM tomosynthesis screening BI Accession Number(s): [id number] cc: Marisabel Michel MD EXAMINATION: MM SCREENING [...] in OV> 04/17/24 0629 DD/ 1310 TD/TT: Cotton Machine Operator: Procedure Note Donotuseinterpreter, Image - 04/17/20[facility] [address] [place] [address] Mammography Report Signed Patient: Radha Kimball#: [id number] : 1970Acct:[id number] Age/Sex: 53 / FADM Date: 03/21/24 Loc: RAFAT Attending Dr: Marisabel Michel MD Ordering Physician: Marisabel Michel MDResults: 1Negative Date of Service: 03/21/24Follow Up: 1 Year From Orig ina Mammogram Procedure(s): MM tomosynthesis screening BI Accession Number(s): [id number] cc: Marisabel Michel MD EXAMINATION: MM SCREENING [...] in OV> 04/17/24 0629 DD/ 1310 TD/TT: Cotton Machine Operator: us Marisabel Michel MD IMG BI PROCEDURES Final Result documented in this encounter Visit Diagnoses Not on filedocumented in this encounter Additional Health Concerns Assessment Noted Time PHQ-9 Depression Total Score: 2 02/25/20 23 1:12 PM EDT documented as of this encounter Care Teams Regrind Mill Operator Relationship Specialty Start Date End Date Marisabel Michel MD [address] [place] [address] PCP - General Family Medicine 09/04/11 documented as of this encounter
--- OUTSIDE RECORDS SUMMARY | 2025-11-13 20:10 | XMS_ITS | Encounter Summary ---
Author Organization [employer] Address [address] [facility] 7t [place] [address] Care Team Providers Care Automotive Title Clerk Name Role Phone Marisabel Michel MD Primary Care Provider [phone] Reason for Visit * Reason Comments Med Refill Encounter Details Date Type Department Care Team ([facility] st Contact Info) Description 11/06/2023 Refill [facility] [address] [place], [place] [phone] Vicky Sage ANP [address] [place], [place] [phone] Social History Tobacco Use Types Packs/Day Years [...] Description 12/12/2025 2:15 PM EST Office Visit [facility] [address] [place] [address] Marisabel Michel MD [address] [place] [address] documented as of this encounter Visit Diagnoses Not on filedocumented in this encounter Additional Health Concerns Assessment Noted Time PHQ-9 Depression Total Score: 2 02/25/20 23 1:12 PM EDT documented as of this encounter Care Teams Automotive Title Clerk Relationship Specialty Start Date End Date Marisabel Michel MD [address] [place] [address] PCP - General Family Medicine 09/04/11 documented as of this encounter
--- OUTSIDE RECORDS SUMMARY | 2025-11-13 20:10 | XMS_ITS | Encounter Summary ---
Author Organization [employer] Address [address] [facility] 7t [place] [address] Care Team Providers Care Auto Design Detailer Name Role Phone Marisabel Michel MD Primary Care Provider Reason for Referral * Imaging (Urgent) - Closed Specialty Diagnoses / Procedures Referred By Contac t Referred To Contact Radiology Diagnoses Acute pain of right knee Procedures MR Knee w/o Contrast Right Marisabel Michel MD [address] [place] [address] Phone: tel: fax: [facility] [address] [place] [address] Phone: tel: fax: Referral ID Status Reason Start Date Expiration Date Visits Re quested Visits Authorized [id number] Closed 05/18/2024 05/18/2025 1 1 Encounter Details Date Type Department Care Team (Late st Contact Info) Description 05/18/2024 Orders Only [facility] [address] [place], [place] [phone] Marisabel Michel MD [address] [place], [place] [phone] Acute pain of right knee (Primary Dx); [...] Description 12/12/2025 2:15 PM EST Office Visit [facility] [address] [place] [address] Marisabel Michel MD [address] [place] [address] documented as of this encounter Procedures Procedure Name Priority Date/Time Associated Diagnosis Comments MR KNEE WO CONTRAST RIGHT Urgent 05/25/2024 3:33 PM EDT Acute pain of right knee documented in this encounter Results * MR Knee w/o Contrast Right (05/25/2024 3:33 PM EDT) Anatomical Region Laterality Modality Magnetic Resonan ce 05/25/2024 3:33 PM EDT Narrative 05/25/2024 4:16 PM EDT [address] [address] Magnetic Resonance Report Signed Patient: Radha Kimball MR#: [id number] : 1970 Acct:[id number] Age/Sex: 53 / F ADM Date: 05/25/24 Loc: HO.MRI Attending Dr: Marisabel Michel MD Ordering Physician: Marisabel Michel MD Date of Service: 05/25/24 Procedure(s): MR knee RT wo con Accession Number(s): [id number] cc: Marisabel Michel MD EXAMINATION: MR KNEE [...] in OV> 05/25/24 1613 DD/ 1533 TD/TT: Production Sorter: SANDHYA Procedure Note Donotuseinterpreter, Image - 05/25/2024 [place] [address] Magnetic Resonance Report Signed Patient: Radha KimballMR#: [id number] : 1970Acct:[id number] Age/Sex: 53 / FADM Date: 05/25/24 Loc: HO.MRI Attending Dr: Marisabel Michel MD Ordering Physician: Marisabel Michel MD Date of Service: 05/25/24 Procedure(s): MR knee RT wo con Accession Number(s): [id number] cc: Marisabel Michel MD EXAMINATION: MR KNEE [...] MD inOV> 05/25/24 1613 DD/ 1533 TD/TT: Production Sorter: DM us Marisabel Michel MD IM MRI PROCEDURES Final Result documented in this encounter Visit Diagnoses Diagnosis Acute pain of right knee- Primary Primary hypertension Unspecified essential hypertension documented in this encounter Additional Health Concerns Assessment Noted Time PHQ-9 Depression Total Score: 0 03/29/20 24 3:23 PM EDT documented as of this encounter Care Teams Auto Design Detailer Relationship Specialty Start Date End Date Marisabel Michel MD [address] [place] [address] PCP - General Family Medicine 09/04/11 documented as of this encounter
--- OUTSIDE RECORDS SUMMARY | 2025-11-13 20:10 | XMS_ITS | Patient Health Record ---
Author Organization [facility] Address [address] [place] [address] Care Team Providers Care Stove Fitter Name Role Phone Anand DIOR, Marisabel Primary Care Provider George Hyman Unavailable [phone] Reason For Referral No Information Medications Medication SIG (Take, Route, Frequency, Duration) Notes Start Date End Date Status hydrOXYzine HCl 10 MG Tablet Orally Active Dulcolax (colon prep) 5 MG Tablet Delayed Release take at 3:00 p.m and 7:00p.m. Orally two tablets twice a day for one day; Duration: 1 day 05/05/2021 Active Pulmicort 1 MG/2ML Suspension 4 ml Inhalation every two days Active Singulair 10 MG Tablet 1 tablet in the evening Orally Once a day Active Saline 0.65 % Solution 2 drops in each nostril as needed Nasally every 2 hrs Active MiraLax (colon prep) 8.3 ounce ((238) grams mixed with Gatorade or Crystal Light orally begin at 5:00 p.m. the day before the procedure; Duration: 1 day 05/05/2021 Active Clotrimazole 10 MG Lozenge 1 tablet at bedtime Mouth/Throat prn Active DuoNeb 0.5-2.5 (3) MG/3ML Solution 3 ml Inhalation every 6 hrs PRN Active Terbinafine HCl 1 % Cream 1 application to affected area Externally Twice a day Active ZyrTEC 10 MG Tablet 1 tablet Orally Once a day Active Nystatin 265022 UNIT/ML Suspension 4 ml Mouth/Throat Twice a day PRN Active Colace 100 MG Capsule 1 capsule as neede d Orally BID Active Cephalexin 500 MG Capsule 1 capsule Orally prn Active levoFLOXacin 250 MG Tablet Orally PRN Active Flonase 50 MCG/ACT Suspension 1 spray in each nostril Nasally Once a day Active Fioricet 50mg/325 mg 1 po qd if no relie f from excederin for headaches Not-Taking/PRN SUMAtriptan Succinate 50 MG Tablet 1 tablet as needed one time Orally Once a day Active Codeine Phosphate 10mg/100mg/5 ml oral liquid 10 milliliter by oral route q4h prn Not-Taking/IA N Flovent Diskus 220 mcg 1 puff twice daily Active [employer] Gas Relief Activ e Ketoconazole 2 % Cream Externally prn Active Ibuprofen 600 MG Tablet 1 tablet Orally Three times a day prn Not daily Not-Taking/PRN Omeprazole 20 MG Capsule Delayed Release 1 capsule Orally BID--in AM and PM before a meal; Duration: 30 day(s) Active Calcium 600 + D 600-200 MG-UNIT Tablet Orally Active Bismuth 262 MG Tablet Chewable 2 tablets as needed Orally 8 time(s) a day Active Ondansetron HCl 4 MG Tablet 2 tablets Orally Once a day Active ProAir HFA 108 (90 Base) MCG/ACT Aerosol Solution 2 puffs as needed Inhalation every 4 hrs/prn Active Naproxen 500 MG Tablet Delayed Release 1 tablet Orally QD Active Immunizations Vaccine Route Administration Date Status Comme nts Flu vaccine no Preserv 3 and > Unknown 09/06/2014 Admin istered Social History Social History Additional Details Category Social Info Options Details Miscellaneous: Marital status: single Occupation: disabled Living with: Lives with famil y and 2 dogs Section Notes: Nonsmoker; no alcohol Nonsmoker; no alcohol Nonsmoker; no alcohol Nonsmoker; no alcohol Nonsmoker; no alcohol Nonsmoker; no alcohol Problems Problem Type SNOMED Code ICD Code Onset Dates Problem Status W/U Status Risk Notes Problem Esophageal reflux (079199428) Esophageal reflux (K21.9) Active confirmed Problem Screening for malignant neoplasm of colon (943832090) Encounter for screening for malignant neoplasm of colon (Z12.11) Active confirmed Problem Gastroesophageal reflux disease (056230770) Gastroesophageal reflux disease, esophagitis presence not specified (K21.9) Active confirmed Problem Family History of Cancer of Colon (Situation) (345969178) Family history of colon cancer (Z80.0) Active confirmed Problem Benign neoplasm of stomach (59435779) Gastric polyps (K31.7) Active confirmed Problem Oropharyngeal dysphagia (30815711) Oropharyngeal dysphagia (R13.12) Active confirmed Problem Benign neoplasm of small intestine (74393572) 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 [address] [place] [address] [id number] CARL JACK Self - patient is the [...]
--- OUTSIDE RECORDS SUMMARY | 2025-11-13 20:10 | XMS_ITS | Encounter Summary ---
Author Organization [employer] Address [address] [place] [address] 7t [place] [address] Care Team Providers Care Office Assistance Name Role Phone Marisabel Michel MD Primary Care Provider [phone] Reason for Referral * Consultation (Routine) - Closed Specialty Diagnoses / Procedures Referred By Contcarlos t Referred To Contact Diagnoses Sinusitis, unspecified chronicity, unspecified location Marisabel Michel MD [address] [place] [address] Phone: tel: fax: Jamshid Aly [address] [place] [address] Drive [address] [place], [place] [address] Phone: tel: fax: Referral ID Status Reason Start Date Expiration Date V isits Requested Visits Authorized [id number] Closed Specialty Services Required 04/22/2024 04/22/2025 1 1 Encounter Details Date Type Department Care Team (Late st Contact Info) Description 04/22/2024 Orders Only [facility] [address] [place], [place] [phone] Marisabel Michel MD [address] [place], [place] [phone] Sinusitis, unspecified chronicity, unspecified location (Primary Dx) [...] Description 12/12/2025 2:15 PM EST Office Visit [facility] [address] [place] [address] Marisabel Michel MD [address] [place] [address] Scheduled Referrals Name Type Priority Associated Diagnoses [...] PM EDT Narrative 05/10/2024 5:32 PM EDT [address] [address] Ultrasound Report Signed Patient: Radha Kimball MR#: [id number] : 1970 Acct:[id number] Age/Sex: 53 / F ADM Date: 05/10/24 Loc: HO.[facility] Attending Dr: Marisabel Michel MD Ordering Physician: Marisabel Michel MD Date of Service: 05/10/24 Procedure(s): US venous duplex LE RT Accession Number(s): [id number] cc: Marisabel Michel MD EXAMINATION: US VENOUS [...] in OV> 05/10/24 1728 DD/ 1648 TD/TT: Maintenance Mechanic Elevators: JUANITA Procedure Note Donotuseinterpreter, Image - 05/10/[address] [address] Ultrasound Report Signed Patient: Radha Kimball#: [id number] : 1970Acct:[id number] Age/Sex: 53 / FADM Date: 05/10/24 Loc: [facility] AntonioXRAY Attending Dr: Marisabel Michel MD Ordering Physician: Marisabel Michel MD Date of Service: 05/10/24 Procedure(s): US venous duplex LE RT Accession Number(s): [id number] cc: Marisabel Michel MD EXAMINATION: US VENOUS [...] in OV> 05/10/24 1728 DD/ 1648 TD/TT: Maintenance Mechanic Elevators: JUANITA us Marisabel Michel MD IMG US PROCEDURES Final Result documented in this encounter Visit Diagnoses Diagnosis Sinusitis, unspecified chronicity, unspecified location- Primary documented in this encounter Additional Health Concerns Assessment Noted Time PHQ-9 Depression Total Score: 0 03/29/20 24 3:23 PM EDT documented as of this encounter Care Teams Office Assistance Relationship Specialty Start Date End Date Marisabel Michel MD [address] [place] [phone] PCP - General Family Medicine 09/04/11 documented as of this encounter
--- OUTSIDE RECORDS SUMMARY | 2025-11-13 20:10 | XMS_ITS | Clinical Summary ---
Author Organization [facility] Address [address] [place] [phone] Phone Care Team Providers Care Pen Rider Name Role Phone Marisabel Michel MD Primary Care Provider [phone] Social History Tobacco Use Types Packs/Day Years [...] topic Medical Devices Not on file Insurance [facility] ONE CARE MEDICARE REPLACEMENT MEDICARE PART A & [place] [address] [address] ONE CARE MEDICARE REPLACEMENT MEDICARE PART A & B MEDICARE PART A & B ONE CARE MEDICARE REPLACEMENT Member Subscriber Plan / Payer ( fective 2016-Present) Name:Chuy Radha Relation to Subscriber:Self Name:VeraRadha singh Payer ID:[id number] (NAIC) Group ID:[id number] Type:Medicare Address: BOX [facility] [place] [facility] MEDICARE PART A & B ONE CARE MEDICARE REPLACEMENT MEDICARE PART A & B [facility] ONE CARE MEDICARE REPLACEMENT [place] [id number] MEDICARE PART A & B Care Teams Pen Rider Relationship Specialty Start Date End Date Marisabel Michel MD [address] [place] [address] PCP - General Family Medicine 10/06/24 Additional Source Comments The information contained in this document represents components of the legal health record. It is not the complete legal health record.[facility]
--- OUTSIDE RECORDS SUMMARY | 2025-11-13 20:10 | XMS_ITS | Encounter Summary ---
Author Organization [employer] Address [address] [facility] 7t [place] [address] Care Team Providers Care Rooming House Inspector Name Role Phone Marisabel Michel MD Primary Care Provider [phone] Encounter Details Date Type Department Care Team (Late st Contact Info) Description 01/08/2023 Orders Only [facility] MED[facility]INE [address] [place] [address] [phone] Marisabel Michel MD [address] [place] [address] [phone] Allergic rhinitis due to other allergic trigger, [...] Description 12/12/2025 2:15 PM EST Office Visit [facility] [address] [place] [address] [phone] Marisabel Michel MD [address] [place] [address] [phone] documented as of this encounter Visit Diagnoses Diagnosis Allergic rhinitis due to other allergic trigger, unspecified seasonality- Primary Moderate persistent asthma without complication documented in this encounter Care Teams Rooming House Inspector Relationship Specialty Start Date End Date Marisabel Michel MD [address] [place] [address] PCP - General Family Medicine 09/04/11 documented as of this encounter
--- OUTSIDE RECORDS SUMMARY | 2025-11-13 20:10 | XMS_ITS | Encounter Summary ---
Author Organization [employer] Address [address] [facility] 7t [place] [address] Care Team Providers Care Medical Cash Poster Name Role Phone Marisabel Michel MD Primary Care Provider [phone] Encounter Details Date Type Department Care Team ([facility] st Contact Info) Description 09/29/2024 Orders Only [facility] [address] [place], [place] [phone] Marisabel Michel MD [address] [place] [address] Social History Tobacco Use Types Packs/Day Years [...] Description 12/12/2025 2:15 PM EST Office Visit [facility] [address] [place] [address] Marisabel Michel MD [address] [place] [address] documented as of this encounter Visit Diagnoses Not on filedocumented in this encounter Additional Health Concerns Assessment Noted Time PHQ-9 Depression Total Score: 0 03/29/20 24 3:23 PM EDT documented as of this encounter Care Teams Medical Cash Poster Relationship Specialty Start Date End Date Marisabel Michel MD [address] [place] [address] PCP - General Family Medicine 09/04/11 documented as of this encounter
--- OUTSIDE RECORDS SUMMARY | 2025-11-13 20:10 | XMS_ITS | Encounter Summary ---
Author Organization [employer] Address [address] [facility] 7t [place] [address] Care Team Providers Care Digital Account Director Name Role Phone Marisabel Michel MD Primary Care Provider [phone] Encounter Details Date Type Department Care Team ([facility] st Contact Info) Description 06/30/2024 Orders Only [facility] [address] [place], [place] [phone] Marisabel Michel MD [address] [place] [address] Prediabetes (Primary Dx); Primary hypertension; Acute right [...] Description 12/12/2025 2:15 PM EST Office Visit [facility] [address] [place] [address] Marisabel Michel MD [address] [place] [address] documented as of this encounter Procedures Procedure [...] PM EDT) Hemoglobin A1c 6.1(H) <6.0 % [facility] Comment:Hemoglobin A1C Refer ence Range [...] asaverage glucose, using the formula of the G2Y-TjaofazLdrqvtd Glucose study (ADAG), Diabetes Care, Vol.31,#8,Jun. 2007 Blood Venous blood specimen / Unknown 08/02/2024 5:05 PM EDT 08/02/2024 5:10 PM EDT us Marisabel Michel MD LAB BLOOD ORDERABLES Final Resul t Performing Organization Address City/[facility]/ZIP Co de Phone Number [facility] [address] [place] [phone] * (ABNORMAL) TSH with Reflex to Free T4 (07/15/2024 3:24 PM EDT) TSH reflex Free T4 0.19(L) 0.32 - 4.0 uIU/mL [facility] Blood 07/15/2024 3:24 PM EDT 07/15/2024 3:26 PM EDT us Marisabel Michel MD LAB BLOOD ORDERABLES Final Resul t [facility] [address] [place] [phone] * (ABNORMAL) Sed Rate by Modified [...] Resul t Performing Organization Address [facility] Co de Phone Number [facility] [address] [place] [phone] * (ABNORMAL) C-reactive Protein (07/15/2024 3:24 PM EDT) C Reactive Protein 18.68(H) < or = 0.50 mg/dL [facility] Blood Venous blood specimen / Unknown 07/15/2024 3:24 PM EDT 07/15/2024 3:26 PM EDT Marisabel Michel MD LAB BLOOD ORDERABLES Final Resul t Performing Organization Address [facility] de Phone Number [facility] [address] [place] [phone] * Uric acid (07/15/2024 3:24 PM EDT) Uric Acid 4.8 2.4 - 5.7 mg/dL [facility] Blood Venous blood specimen / Unknown 07/15/2024 3:24 PM EDT 07/15/2024 3:26 PM EDT Marisabel Michel MD LAB BLOOD ORDERABLES Final Resul t Performing Organization Address [facility] Co de Phone Number [facility] [address] [place] [phone] * (ABNORMAL) Comprehensive Metabolic Panel (07/15/2024 [...] 1.210.Chronic Kidney Disease: Estimated GFR < 60 mL/min/1.93r6Rbbcgf Kidney Disease: Estimated GFR < 15 mL/min/1.73m2 [...] Final Resul t [facility] [address] [place] [phone] * (ABNORMAL) CBC auto differential (07/15/2024 [...] lt - Final [facility] [address] [place] [phone] * VASC US Lower Extremity Venous Duplex Bilateral (07/15/2024 2:00 PM EDT) 07/15/2024 2:00 PM EDT Narrative [facility] - 07/15/2024 2:49 PM EDT [address] [address] Ultrasound Report Signed Patient: Radha Kimball MR#: [id number] : 1970 Acct:[id number] Age/Sex: 53 / F ADM Date: 07/15/24 Loc: . Attending Dr: Sebastian aMtta MD Ordering Physician: Sebastian Matta MD Date of Service: 07/15/24 Procedure(s): US venous duplex LE BI Accession Number(s): [id number] cc: Sebastian Matta MD; Marisabel Michel MD [...] 07/15/24 1445 DD/ 1400 TD/TT: 07/15/24 1420 Cashier Gambling: Procedure Note Donotuseinterpreter, Image - 07/15/[address] [address] Ultrasound Report Signed Patient: Radha Kimball#: [id number] : 1970Acct:[id number] Age/Sex: 53 / FADM Date: 07/15/24 Loc: HO.US Attending Dr: Sebastian Matta MD Ordering Physician: Sebastian Matta MD Date of Service: 07/15/24 Procedure(s): US venous duplex LE BI Accession Number(s): [id number] cc: Sebastian Matta MD; Marisabel Michel MD [...] 07/15/24 1445 DD/ 1400 TD/TT: 07/15/24 1420 Cashier Gambling: [facility] External Provider CV VASC ULAR PROCEDURES Final Result Performing Organization Address City/State/[facility] Co de Phone Number [facility] [address] [place] [phone] documented in this encounter Visit Diagnoses Diagnosis Prediabetes- Primary Other abnormal glucose Primary hypertension Unspecified essential hypertension Acute right ankle pain Fever, unspecified fever cause documented in this encounter Additional Health Concerns Assessment Noted Time PHQ-9 Depression Total Score: 0 03/29/20 24 3:23 PM EDT documented as of this encounter Care Teams Digital Account Director Relationship Specialty Start Date End Date Marisabel Michel MD [address] [place] [phone] PCP - General Family Medicine 09/04/11 documented as of this encounter
--- OUTSIDE RECORDS SUMMARY | 2025-11-13 20:10 | XMS_ITS | Encounter Summary ---
Author Organization [employer] Address [address] [facility] 7t [place] [address] Care Team Providers Care Outcomes Analyst Name Role Phone Marisabel Michel MD Primary Care Provider [phone] Encounter Details Date Type Department Care Team (Late Contact Info) Description 12/02/2022 Orders Only [facility]INE [address] [place] [address] [phone] Marisabel Michel MD [address] [place] [address] [phone] Moderate persistent asthma without complication (Primary Dx); [...] Department Care Team (Late Contact Info) Description 12/12/2025 2:15 PM EST Office Visit [facility] [address] [place] [address] [phone] Marisabel Michel MD [address] [place] [address] [phone] documented as of this encounter Visit Diagnoses Diagnosis Moderate persistent asthma without complication- Primary Allergic rhinitis due to other allergic trigger, unspecified seasonality Intrinsic atopic dermatitis documented in this encounter Care Teams Outcomes Analyst Relationship Specialty Start Date End Date Marisabel Michel MD [address] [place] [address] [phone] PCP - General Family Medicine 09/04/11 documented as of this encounter
--- OUTSIDE RECORDS SUMMARY | 2025-11-13 20:10 | XMS_ITS | Encounter Summary ---
Author Organization [employer] Address [address] [facility] 7t [place] [address] Care Team Providers Care Wheat Cleaner Name Role Phone Marisabel Michel MD Primary Care Provider Reason for Referral * Imaging (Urgent) - Canceled Specialty Diagnoses / Procedures Referred By Contac t Referred To Contact Radiology Diagnoses Elevated erythrocyte sedimentation rate Acute right ankle pain Cellulitis of right leg Procedures MR Ankle w/ and w/o Contrast Right Marisabel Michel MD [address] [place] [address] Phone: tel: fax: [address] [phone] Phone: tel: fax: Referral ID Status Reason Start Date Expiration Date V isits Requested Visits Authorized [id number] Canceled 07/19/2024 07/19/2025 1 1 * Imaging (Urgent) - Closed Specialty Diagnoses / Procedures Referred By Contac t Referred To Contact Radiology Diagnoses Elevated erythrocyte sedimentation rate Acute right ankle pain Cellulitis of right leg Procedures MRI LOWER LEG / TIBIA FIBULA RIGHT W WO CONTRAST Marisabel Michel MD [address] [place] [address] Phone: tel: fax: [address] [phone] Phone: tel: fax: Referral ID Status Reason Start Date Expiration Date Visits Re quested Visits Authorized [id number] Closed 07/19/2024 07/19/2025 1 1 Encounter Details Date Type Department Care Team (Late st Contact Info) Description 07/15/2024 Orders Only [facility] [address] [place] [address] Marisabel Michel MD [address] [place] [address] Elevated erythrocyte sedimentation rate (Primary Dx); Cellulitis [...] Description 12/12/2025 2:15 PM EST Office Visit [facility] [address] [place] [address] Marisabel Michel MD [address] [place] [address] Scheduled Orders Name Type Priority Associated Diagnoses [...] Vitamin D 25-OH Total 54.6 >30 ng/mL [facility] Comment:Health Based Referen ce Values*< 20 ng/mL [id number] ng/mL Insufficient> 30 ng/mL Sufficient*Ashok SMITH. N [...] ORDERABLES Final Resul t Performing Organization Address City/[facility]/ZIP Co de Phone Number [facility] [address] [place] [phone] * (ABNORMAL) PTH, Intact Without Calcium (08/02/2024 5:05 PM EDT) Parathyroid Hormone, Intact 78.5(H) 8.7 - 77.1 pg/mL [facility] Blood Venous blood specimen / Unknown 08/02/2024 5:05 PM EDT 08/02/2024 5:10 PM EDT Marisabel Michel MD LAB BLOOD ORDERABLES Final Resul t Performing Organization Address City/[facility]/ZIP Co de Phone Number [facility] [address] [place] [phone] * TSH (08/02/2024 5:05 PM EDT) Thyroid Stimulating Hormone 2.46 0.32 - 4.0 uIU/mL [facility] Comment:TSH 3rd Generation ( [facility]) Blood Venous blood specimen / Unknown 08/02/2024 5:05 PM EDT 08/02/2024 5:10 PM EDT Marisabel Michel MD LAB BLOOD ORDERABLES Final Resul t Performing Organization Address [facility] Co de Phone Number [facility] [address] [place] [phone] * (ABNORMAL) Sed Rate by Modified Westergren (08/02/2024 5:05 PM EDT) Erythrocyte Sedimentation Rate 71(H) 0 - 20 MM/HR [facility] Comment:Patients with polycy themia and many hemoglobin abnormalitiesmay have depressed sed rates whereas patients with anemiamay have elevated sed rates. Blood Venous blood specimen / Unknown 08/02/2024 5:05 PM EDT 08/02/2024 5:10 PM EDT Marisabel Michel MD LAB BLOOD ORDERABLES Final Resul t Performing Organization Address [facility] de Phone Number [facility] [address] [place] [phone] * (ABNORMAL) C-reactive Protein (08/02/2024 5:05 PM EDT) C Reactive Protein 1.90(H) < or = 0.50 mg/dL [facility] Blood Venous blood specimen / Unknown 08/02/2024 5:05 PM EDT 08/02/2024 5:10 PM EDT Marisabel Michel MD LAB BLOOD ORDERABLES Final Resul t Performing Organization Address [facility] Co de Phone Number [facility] [address] [place] [phone] * T4, Free (07/15/2024 3:24 PM EDT) Free T4 (Free Thyroxine) 1.45 0.71 - 1.85 ng/dL [facility] Blood Venous blood specimen / Unknown 07/15/2024 3:24 PM EDT 07/15/2024 3:26 PM EDT us Marisabel Michel MD LAB BLOOD ORDERABLES Final Resul t [facility] [address] [place] [phone] [phone] documented in this encounter Visit Diagnoses Diagnosis Elevated erythrocyte sedimentation rate- Primary Elevated sedimentation rate Cellulitis of lower extremity, unspecified laterality Abnormal TSH Fever, unspecified fever cause Acute right ankle pain Cellulitis of right leg documented in this encounter Additional Health Concerns Assessment Noted Time PHQ-9 Depression Total Score: 0 03/29/20 24 3:23 PM EDT documented as of this encounter Care Teams Wheat Cleaner Relationship Specialty Start Date End Date Marisabel Michel MD [address] [place] [phone] PCP - General Family Medicine 09/04/11 documented as of this encounter
--- OUTSIDE RECORDS SUMMARY | 2025-11-13 20:11 | XMS_ITS | Continuity of Care Document ---
Author Organization [employer] [facility], [facility] Address [address] [place] [address] Care Team Providers Care B2B Appointment Setter Name Role Phone HIM CCA OTHER DENA AKN Primary Care Provider Assessment Encounter Date Assessment Date Assessment LastModified by Organization Details LastModified Time 11/08/2025 11/08/2025 Mrs. Vera was evaluated for irritative voiding symptoms and low back and suprapubic pain. She is afebrile. She does not exhibit any signs or symptoms of ascending infection or sepsis. Her urine dipstick is positive for leukocyte esterase. No recent culture data available. Patient reports cefadroxil worked for her in the past so will initiate cephalexin this evening and 5 day course of cefadroxil sent to pharmacy as well as urine culture sendout to [facility]. Patient otherwise appears safe to remain at home with treatment as above and reasons to seek further care discussed. I provided real -time medical direction via phone for this encounter, and was available for additional phone based assistance as needed. I have reviewed and agree with the Assessment and Plan as documented by the Occupational Health Coordinator. We discussed the diagnostic uncertainty of home visits and the risk associated with this. In this case the patient and I felt this to be an acceptable and reasonable amount of risk given the benefit of avoiding an ED visit. The patient given the opportunity to ask questions. Advised if develops CP/severe SOB/turning blue/uncontrolle d n/v/d or black/bloody emesis or stool/ AMS/ syncope/ hi fever unresponsive to APAP to call 911- verbalized understanding of instruction [email or web address] Not available 11/08/2025 19:07:52 Plan of Treatment Reminders Order Date Submit Date Provider Last Modified By Organization Details Last Modified Time Details Appointments None recorded. Lab culture, urine 2024 025 [facility] (Centralized Electronic Ordering - All Locations), Patient Can Go To The Location Of Their Choice, [address] 08:08:44 urinalysis, dipstick 2024 025 [facility], [address] [facility] [address] [facility], [place], [address] 21:38:39 Referral None recorded. Procedures None recorded. Surgeries None recorded. Imaging None recorded. Medication Orders cephalexin 500 mg capsule 2024 025 [id number], [address] [place], [address], 19:05:50 cefadroxil 500 mg capsule 2024 025 [id number], [address] [place], [address], 19:06:11 Patient TargetsNo targets recorded. Patient InstructionsNo instructions recorded. Reason for Referral None Reported. Results Created Date Observation Date Name Description Value Unit Range Abnormal Flag Note LastModifiedBy Organization Detail LastModifiedTime 11/08/2011/10/2025 URINE CULTU REJAYLEN NE urine culture, routine Final report Not Available [facility] ([facility]) [address] [facility], [place], [address], 11/10/2025 08:08:44 11/08/2011/10/2025 URINE CULTU REVIPINI NE result 1 COMMEN T Mixed uroge nital rimma 10,00 0-25, 000 colon y formi ng units per mL Not Available [facility] ([facility]) [address] [place], [address], 11/10/2025 08:08:44 Result Notes None recorded. Problems Name Problem SNOMED Code Status Onset Date Resolution Date Notes Provider Name and Address Organization Details Recorded Time Asthma 819791702 Active 025 Chhaya Lovett MD [address] [facility] [address] [facility], [place], [address] , [facility] [place] 03/26/2025 20:06:52 Problem Notes None recorded. Medical Equipment None Reported. Allergies Allergen ID Allergen Name Allergen Category Reaction Reaction Severity Criticality Documentation Date Start Date Code Code System Note Provider Name and Address Organization Details Recorded Time 1866 Bactrim medicatio n Not available Not available Not available 01/02/2023 06497 9 RxNorm Not Available [employer] - production 17:39:26 1867 Symbicort medicatio n Not available Not available Not available 01/02/2023 25873 8 RxNorm Not Available [facility] - production 17:39:26 00491 budesonid e medicatio n Not available Not available [facility] 11/08/20252013 87180 RxNorm Other react ion(s ): Alter ed Heart Rate Other React ion(s ): TREMO R Not Available [employer] - prod 19:27:09 55743 formotero l Not available Not available Not available [facility] 11/08/20252013 83901 RxNorm Other react ion(s ): Alter ed Heart Rate Other React ion(s ): TREMO R Not Available [employer] - prod 19:27:09 50780 oxybutyni n medicatio n Not available Not available Not available 11/08/20252015 67248 RxNorm Not Available [employer] - prod 19:27:09 50193 sulfameth oxazole medicatio n Not available Not available [facility] 11/08/20252016 82359 RxNorm Other react ion(s ): Fever , rash Not Available [employer] - prod 19:27:09 24307 sulfameth oxazole / trimethop rim medicatio n Not available Not available Not available 11/08/20252023 94109 RxNorm unrec ogniz ed react ion (text : Unkno wn, code: [id number]) (from exter nal sour e) Not Available [employer] - prod 19:27:09 49188 topiramat e medicatio n Not available Not available [facility] 11/08/20252015 24615 RxNorm Not Available [employer] - prod 19:27:09 86567 trimethop rim medicatio n rash Not available [facility] 11/08/20252016 34892 RxNorm Other react ion(s ): Fever , rash Not Available [employer] - prod 19:27:09 95619 budesonid e / formotero l medicatio n Not available Not available Not available 11/08/2025 25112 2 RxNorm Not Available [employer] - External Data Service - [facility] 19:27:13 Medications Name Sig Start Date Stop Date [...] Not Available Not Available No t Available alclometason e 0.05 % topical cream [...] day by oral route for 5 days. 2024 active Not Available Not Available Not Avai lable ceftriaxone 1 gram solution for injection Take [...] nitrofuranto in macrocrystal 100 mg capsule TOME 1 C PSULA [...] triamcinolon e acetonide 0.025 % topical ointment APPLY TO LEGS 2X DAILY NEEDED FOR PRURITIS, DECREASE TO DAILY/EVERY OTHER DAY SYMPTOMS IMPROVE active Not Available [...] Not Available Not Available N ot Available furosemide 20 mg tablet TOME MARIAH [...] Not Available No t Available amoxicillin 875 mg-potassium clavulanate 125 mg tablet TOME 1 TABLETA POR V A ORAL CADA 12 HORAS active Not Available Not Available No t Available Ventolin HFA 90 mcg/actuatio n aerosol inhaler TOME DOS INHALACIONE S POR VIA ORAL CADA CUATRO HORAS CUANDO SEA NECESARIO active Not Available Not Available No t Available cholecalcife rol (vitamin D3) 25 mcg (1,000 unit) capsule [...] active Not Available Not Available Not Available nitrofuranto in monohydrate/ macrocrystal s 100 [...] Vitals Date Recorded Body temperature Oxygen saturation Heart rate Respiratory rate Systolic And Diastolic Provider Name and Address Organization Details Last Updated DateTime 97.7 [degF] 100 % 92 /min 18 /min 128/76 mm[Hg] Not Available [facility] 5 19:02:47 Social History None recorded. Functional Status None recorded. Mental Status None recorded. Family History Nothing Reported. Medical History No medical history recorded. Gynecological HistoryNo gynecological history recorded. Obstetrics History GPAL:G 0 P 0 0 0 0 Past Encounters Encounter ID Performer Location Encounter Start Date Encounter Closed Date Diagnosis/Indication Diagnosis SNOMED-CT Code Diagnosis ICD10 Code Diagnosis IMO Codes Diagnosis Note [id number] RAJ KIRBY MD Main-inst ED Medical [facility] [address] [place] [address] 11/08/2025 19:02:43 11/09/2025 00:53:35 Urinary system finding 763530494 R39.9 [id number] Health Concerns Section Related Observation LastModified by Organization Detai ls LastModified Time None Recorded Concern Status LastModified by Organization Details LastModified Time None Recorded Payers Encounter Date Sequence Insurance Name Policy Number Policy Cabrera Covered Member ID Cabrera Member ID Guarantor Name 11/08/2025 1 [facility] - DOS ON OR AFTER 2023 - DUAL ELIGIBLE - DETENTION OPTIONS AND ONE CARE (MEDICARE REPLACEMENT/ADV ANTAGE - HMO) Radha Vera [id number] Radha Vera Notes Date Note Type Note Provider Name and Address Organization Details Recorded Time 11/08/2025 text/html ROS as noted in the [facility] Nurse Triage Notes (She Huizar): Reason For Request: Patient has lower back pain and urinates every 10 min. Patient Reports: Painful urination; Frequent and increased urination with flank pain; Painful urination with or without fever Denies: Unable to void greater than 5 hours Erection that will not go away after 2 hours Fall or trauma that results in urinary incontinence in the setting of pain Fall or injury that results in incontinence in the absence of pain Lower back pain either unilateral or bilateral, unable to void, painful urination -hematuria Inability to fully empty bladder Chief Complaints: Urinary Symptoms PMH: COPD/Asthma, Hypertension, Kidney Stones, Sleep Apnea PMH Reviewed at 11/08/2025 - 14:42 (ET) Allergies Reviewed at 11/08/2025 - 14:42 (ET) Comments: 54 y.o female complains of Urinary Symptoms Patient self referring Patient has had symptoms the last couple days endorses frequency and urgency, pain and burning with urination and foul odor. no blood present. endorses lower back and abdominal pain when urinating denies fever ,chills, nausea, vomiting. or loose stools denies any kidney disease and not on any blood thinners. requesting insted assessment for urinary symptoms I provided information on the mobile health provider response time and advised the patient and/or caregiver to monitor reported signs and symptoms. I discussed the warning signs of when to seek emergency care. Occupational Health Coordinator Organization Information for [employer]abil[employer]olores Danyel [employer] Name: [employer]. Address: [address] [place] [address], Ob Gyn Physician Assistant: Bret Champagne MD CLIA No.: [id number] Occupational Health Coordinator POC Test Results from NabiladoloresDanyel Urine Dipstick (19:00:38) Urine leukocytes: 15+-CESAR Urine nitrites: -NIT Urine urobilinogen: 0.2 3.5URO Urine protein: 15 +- 0.15PRO Urine pH: 5.0pH Urine blood: -BLO Urine specific gravity: 1.015SG Urine ketones: 5 +- 0.5KET Urine bilirubin: 1 + 17BIL Urine glucose: -GLU Attachments uploaded as part of this test result can be found under Documents section. ................... ................... ................... ................... ................... ................... ................... ........ Occupational Health Coordinator Note From Danyel Hancock: Encountered patient seated upright and conscious in wheelchair, with family present. Patient reports approximately three days of an increase in urinary frequency as well as lower abdominal and flank pain. Patient denies chest pain, shortness of breath and fevers. POCT urinalysis dip performed, values uploaded via [employer]; culture retrieved for [facility] delivery. Skin warm, dry and of appropriate color for ethnicity. Head and neck, free of trauma and edema. JVD. Breath sounds present, clear and equal bilaterally. Abdomen is soft, non-tender and non-distended. Extremities are free of trauma and edema. [facility] Contacted: 500mg PO Keflex was administered after medication r ights were reconciled with patient. [facility] states they will send a prescription for further treatment to a pharmacy of patient s choice. Patient was encouraged to monitor herself for worsening symptoms, chest pain, shortness of breath or fevers and was encouraged to seek further medical attention, including 911 if said symptoms are to develop. Patient verbalizes understanding of the plan and states she is comfortable remaining home this evening. [facility] Lab Orders: culture, urine: Performed urinalysis, dipstick: Performed [facility] Medication Orders: cephalexin 500 mg capsule: Administered ................... ................... ................... ................... ................... ................... ................... ........ [facility] Consulted: Raj Kirby ................... ................... ................... ................... ................... ................... ................... ........ Disposition: Fulfilled RAJ KIRBY MD [address] [facility] [address] [facility], [place], [address], [employer] 11/08/2025 21:31:02 OBGyn Episode No OBEpisode recorded.
--- OUTSIDE RECORDS SUMMARY | 2025-11-13 20:11 | XMS_ITS | Encounter Summary ---
Author Organization [employer] Address [address] [place] [address] Care Team Providers Care Bingo Checker Name Role Phone Marisabel Michel MD Primary Care Provider [phone] Encounter Details Date Type Department Care Team ([facility] st Contact Info) Description 10/26/2023 Orders Only [facility] [address] [place], [place] [phone] Marisabel Michel MD [address] [place], [place] [phone] Social History Tobacco Use Types Packs/Day Years [...] Description 12/12/2025 2:15 PM EST Office Visit [facility] [address] [place] [address] Marisabel Michel MD [address] [place] [address] documented as of this encounter Visit Diagnoses Not on filedocumented in this encounter Additional Health Concerns Assessment Noted Time PHQ-9 Depression Total Score: 2 02/25/20 23 1:12 PM EDT documented as of this encounter Care Teams Bingo Checker Relationship Specialty Start Date End Date Marisabel Michel MD [address] [place] [address] PCP - General Family Medicine 09/04/11 documented as of this encounter
--- OUTSIDE RECORDS SUMMARY | 2025-11-13 20:11 | XMS_ITS | Patient Health Record ---
Author Organization [facility] Address [address] [place] [address] Care Team Providers Care Business Department Chair Name Role Phone Marisabel Michel Primary Care Provider Yoni Glover Unavailable [phone] Halle Bustillo Unavailable [phone] Allergies Allergen (clinical drug ingredient) Drug/Non Drug Allergy documented on EMR Reaction Allergy Type Onset Date Status sulfamethoxazole / trimethoprim Bactrim Unknown Drug Allergy Active budesonide / formoterol Symbicort Unknown Drug Allergy Active Results Component Value Reference Range Notes HEMOGLOBIN A1C (GLYCOHEMOGLO BIN) Reviewed date:05/08/2025 01:31:26 [...] Orally; Duration: 30 day(s) Active Saline Nasal [place] as needed A ctive Meclizine HCl 12.5 [...] Ipratropium-Albuterol Active Flovent HFA Not-Taki ng Ipratropium [place] Active Cyproheptadine as needed Activ e Vitamin [...] Problem Acquired hammer toe of right foot (7658949157447441) Other hammer toe(s) (acquired), right foot (M20.41) Active confirmed Problem Acquired hammer toe of left foot (4203068485072399) Other hammer toe(s) (acquired), left foot (M20.42) Active confirmed Problem Bilateral atherosclerosis of arteries of lower limbs (disorder) (13859262174647461 ) Atherosclerosis of elim ira artery of both lower extremities, with unspecified presence of clinical manifestation (I70.203) Active confirmed Q7(A), Q8(2B), Q9(1B,2 C) Vital Signs Heart Rate 71 /min 05/08/2025 Blood pressure diastolic 69 mm Hg 08/02/2025 Height 5ft in 08/02/2025 Blood pressure systolic 133 mm Hg 08/02/2025 Weight 178 lbs 08/02/2025 BMI 34.76 kg/m2 08/02/2025 Procedures Procedure Date Ordered Date Performed Result Body Sit e 31768-VWDYFOY NAIL, 6 OR MORE 01/30/2025 N/A 90327- Debride <25 sq cm 01/30/2025 N/A 75055-IGVK SKIN LESIONS, 2 TO 4 01/30/2025 N/A 97013-AJQYWPX NAIL, 6 OR MORE 05/08/2025 N/A 36381-UNOK SKIN LESIONS, 2 TO 4 05/08/2025 N/A 46185-EDZAZDN NAIL, 6 OR MORE 08/02/2025 N/A 17222-RKTD SKIN LESIONS, 2 TO 4 08/02/2025 N/A Encounters [facility]counter [facility] [address] [facility]/30[facility]25 Yoni Bhatt Type 2 diabetes kaycee itus with diabetic peripheral angiopathy without gangrene E11.51 ; Tinea unguium B35.1 ; Pain in right toe(s) M79.674 ; Pain in left toe(s) M79.675 ; Other hammer toe(s) (acquired), left foot M20.42 ; Other hammer toe(s) (acquired), right foot M20.41 and Skin ulcer of toe of left foot, limited to breakdown of skin L97.[address] [place] [address] [address] 05/08/2025 Yoni Bhatt Atherosclerosis of elim ira artery of both lower extremities, with unspecified presence of clinical manifestation I70.203 ; Tinea unguium B35.1 ; Pain in right toe(s) M79.674 ; Pain in left toe(s) M79.675 and Skin ulcer of toe of left foot, limited to breakdown of skin L97.[address] [address] 08/02/2025 Yoni Bhatt Atherosclerosis of elim ira artery of both lower extremities, with unspecified presence of clinical manifestation I70.203 ; Tinea unguium B35.1 ; Pain in right toe(s) M79.674 ; Pain in left toe(s) M79.675 ; Other hammer toe(s) (acquired), left foot M20.42 and Other hammer toe(s) (acquired), right foot M20.[address] [address] 06/07/2025 Yoni Bhatt [address] [address] 04/20/2025 [facility] [address] [address] 05/19/2025 Yoni Bhatt Assessments Encounter Date Diagnosis (ICD Code) Assessment Notes Treatment Notes Treatment Clinical Notes Section Notes 01/30/2025 Type 2 diabetes mellitus with diabetic peripheral angiopathy without gangrene (ICD-10 - E11.51) Q7(A), Q8(2B), Q9(1B,2C) 05/08/2025 Tinea unguium (ICD-10 - B35.1) 05/08/2025 Atherosclerosis of elim ira artery of both lower extremities, with unspecified presence of clinical manifestation (ICD-10 - I70.203) Q7(A), Q8(2B), Q9(1B,2C) 08/02/2025 Tinea unguium (ICD-10 - B35.1) 08/02/2025 Atherosclerosis of elim ira artery of both lower extremities, with unspecified [...] Treatment Pending Test Test Name Order Date 23719-RIOSTGT NAIL, 6 OR MORE 06/02/2017 25345-ZNVRHVL NAIL, 6 OR MORE 09/01/2017 75995-RNQRJHU NAIL, 6 OR MORE 12/22/2017 99201-VGHPVJP NAIL, 6 OR MORE 03/23/2018 95361-SLSLGOX NAIL, 6 OR MORE 06/01/2018 27966-RBXUNMK NAIL, 6 OR MORE 10/29/2018 34599-AJNOVGJ NAIL, 6 OR MORE 08/06/2018 09884-SBBVGLI NAIL, 6 OR MORE 10/07/2024 34429-MKOTHQJ NAIL, 6 OR MORE 01/30/2025 63761-CXSJLUF NAIL, 6 OR MORE 05/08/2025 39464-HTPEIJP NAIL, 6 OR MORE 08/02/2025 14519-Gofawznk Plate 08/06/2018 40053-Yycsbzdv Plate 12/22/2017 70781- Debride <25 sq cm 06/22/2018 30944- Debride <25 sq cm 05/03/2024 02178- Debride <25 sq cm 01/30/2025 37405-QHEUDMT SKIN/TISSUE 02/04/2022 81210-KCUFBPC SKIN/TISSUE 05/12/2022 96452 I&D ABSCESS- SIMPLE,SINGLE 019 42985 I&D ABSCESS- SIMPLE,SINGLE 020 96938- I&D ABSCESS-COMPLICATED,MULTI 08/2018 36009- I&D ABSCESS-COMPLICATED,MULTI 60639-CZGE SKIN LESIONS, 2 TO 4 06/01/20 18 02462-VFSN SKIN LESIONS, 2 TO 4 08/06/20 18 16336-KEPR SKIN LESIONS, 2 TO 4 06/02/20 17 58946-NWLM SKIN LESIONS, 2 TO 4 03/23/20 18 07267-XSFB SKIN LESIONS, 2 TO 4 12/22/19 18 19882-ZFWD SKIN LESIONS, 2 TO 4 09/01/20 17 06153-WZNP SKIN LESIONS, 2 TO 4 10/26/20 20 98132-TIBQ SKIN LESIONS, 2 TO 4 01/30/20 21 24603-SBOA SKIN LESIONS, 2 TO 4 04/30/20 21 02748-VUIM SKIN LESIONS, 2 TO 4 07/30/20 21 23593-JKKP SKIN LESIONS, 2 TO 4 10/25/20 21 80396-DKSQ SKIN LESIONS, 2 TO 4 12/27/19 22 85302-BOOJ SKIN LESIONS, 2 TO 4 02/05/20 22 04816-LLGO SKIN LESIONS, 2 TO 4 01/24/20 20 54488-MKOU SKIN LESIONS, 2 TO 4 06/02/20 20 39875-AZVE SKIN LESIONS, 2 TO 4 07/24/20 20 82430-PQSZ SKIN LESIONS, 2 TO 4 02/09/20 19 71267-XSAG SKIN LESIONS, 2 TO 4 05/10/20 19 32531-NCVF SKIN LESIONS, 2 TO 4 07/26/20 19 37364-IVGH SKIN LESIONS, 2 TO 4 11/08/20 19 60834-VLEA SKIN LESIONS, 2 TO 4 07/01/20 22 51336-ZCXO SKIN LESIONS, 2 TO 4 10/29/20 18 71882-PVAZ SKIN LESIONS, 2 TO 4 01/31/20 25 24950-EEUT SKIN LESIONS, 2 TO 4 10/07/20 24 83557-ONDS SKIN LESIONS, 2 TO 4 08/02/20 25 34843-JXHY SKIN LESIONS, 2 TO 4 05/08/20 Next Appt Details Provider Name:Yoni Bhatt , 11/21/2025 02:30:00 PM, [address] [place], [address], Insurance Providers Payer Name Payer Address Payer Phone Subscriber Number Group Number Insured Name Patient Relationship to Insured Coverage Start Date Coverage End Date [facility]ly [facility] [employer] Claims [address] [facility] [place] [id number] Radha Vera Self - patient is the insured 7 Medical (General) History Medical History History ICD Code Arthritis asthma Cerebral palsy Chicken pox Epilepsy Knee Pain Kidney stones Migraines Paralysis Poor circulation Reflux Surgical History Surgery Date(Month/Year) appendectomy 2008 hand/wrist 1983 leg surgery 1980 Hospitalization History Reason Date(Month/Year) [facility]- leg infection 07/19-07/25 Urgent Care- Pain in ankle- negetive ult rasound and x-ray 04/2019 ER in [place] 02/2018
--- OUTSIDE RECORDS SUMMARY | 2025-11-13 20:11 | XMS_ITS | Encounter Summary ---
Author Organization [facility] Address [address] [facility] [place] [address] Encounters * CPT with Medical instED at [employer] on 2025-11-09 { reasonForRequest : Patient has lower back pain and urinates every 10 min. ,&qu ot;patientReports : Painful urination; Frequent and increased urination with flank pain; Painful urination with or without fever , denies :[ Unable to void greater than 5 hours , Erection that will not go away after 2 hours , Fall or trauma that results in urinary incontinence in the setting of pain , Fall or injury that results in incontinence in the absence of pain , Lower back pain either unilateral or bilateral, unable tovoid, painful urination - hematuria , Inability to fully empty bladder ], chiefComplaints : Urinary Symptoms , pmh : COPD/Asthma, Hypertension, KidneyStones, Sleep Apnea , allergies : Bactrim, Symbicort , otherAllergies& quot;:null, painAssessment : , visitOutcome : , additionalComments : 54 y.o female complains of Urinary Symptoms\nPatient self referring\nPatient has had symptoms the last couple days\nendorses frequency and urgency, pain and burning with urination and foul odor. no blood present. endorses lower back and abdominal pain when urinating\ndenies fever ,chills, nausea, vomiting. or loose stools\ndenies any kidney disease and not on any blood thinners. \nrequesting insted assessment for urinary symptoms\n\nI provided information on the mobile health provider response time and advised the patient and/or caregiver to monitor reported signs and symptoms. I discussed the warning signs of when to seek emergency care. } Encountered patient seated upright and conscious in wheelchair, with family present. Patient reports approximately three days of an increase in urinary frequency as well as lower abdominal and flank pain. Patient denies chest pain, shortness of breath and fevers. POCT urinalysis dip performed, values uploaded via [employer]; culture retrieved for [facility] delivery. Skin warm, dry and of appropriate color for ethnicity. Head and neck, free of trauma and edema. ???JVD. Breath sounds present, clear and equal bilaterally. Abdomen is soft, non-tender and non-distended. Extremities are free of trauma and edema. [facility] Contacted: 500mg PO Keflex was administered after medication ???rights??? were reconciled with patient. [facility] states they will send a prescription for further treatment to a pharmacy of patient???schoice. Patient was encouraged to monitor herself for worsening symptoms, chest pain, shortness of breath or fevers and was encouraged to seek further medical attention, including 911 if said symptoms are to develop. Patient verbalizes understanding of the plan and states she is comfortable remaining home this evening. ORAL_MEDICATION, EKG, POC_BLOODWORK, GLUCOSE Written by Medical instED on 2025-11-09
--- OUTSIDE RECORDS SUMMARY | 2025-11-13 20:11 | XMS_ITS | Encounter Summary ---
Author Organization [employer] Address [address] [facility] 7t [place] [address] Care Team Providers Care Trim Carpenter Name Role Phone Marisabel Michel MD Primary Care Provider [phone] Reason for Referral * Consultation (Routine) - Closed Specialty Diagnoses / Procedures Referred By Contac t Referred To Contact Pharmacy Diagnoses Moderate persistent asthma without complication Prediabetes Primary hypertension Polypharmacy Marisabel Michel MD [address] [place] [address] Phone: tel: fax: Referral ID Status Reason Start Date Expiration Date V isits Requested Visits Authorized [id number] Closed Continuity of Care 09/09/2024 09/09/2025 6 6 Encounter Details Date Type Department Care Team ([facility] st Contact Info) Description 09/09/2024 Orders Only [facility] [address] [place] [address] [phone] Marisabel Michel MD [address] [place], [place] [phone] Moderate persistent asthma without complication (Primary Dx); [...] Description 12/12/2025 2:15 PM EST Office Visit [facility] [address] [place] [address] Marisabel Michel MD [address] [place] [phone] Scheduled Referrals Name Type Priority Associated Diagnoses [...] documented as of this encounter Care Teams Trim Carpenter Relationship Specialty Start Date End Date Marisabel Michel MD [address] [place] [address] PCP - General Family Medicine 09/04/11 documented as of this encounter
--- OUTSIDE RECORDS SUMMARY | 2025-11-13 20:11 | XMS_ITS | Encounter Summary ---
Author Organization [employer] Address [address] [facility] 7 [place] [address] Care Team Providers Care Configuration Management Consultant Name Role Phone Marisabel Michel MD Primary Care Provider [phone] Encounter Details Date Type Department Care Team ([facility] st Contact Info) Description 10/04/2024 Orders Only [facility] [address] [place] [address] Lexie Lopez, PharmD 230 [place] [address] Social History Tobacco Use Types Packs/Day Years [...] Description 12/12/2025 2:15 PM EST Office Visit [facility] [address] [place] [address] Marisabel Michel MD 230 [place] [address] documented as of this encounter Visit Diagnoses Not on filedocumented in this encounter Additional Health Concerns Assessment Noted Time PHQ-9 Depression Total Score: 0 03/29/20 24 3:23 PM EDT documented as of this encounter Care Teams Configuration Management Consultant Relationship Specialty Start Date End Date Marisabel Michel MD [address] [place] [phone] PCP - General Family Medicine 09/04/11 documented as of this encounter
--- OUTSIDE RECORDS SUMMARY | 2025-11-13 20:11 | XMS_ITS | Encounter Summary ---
Author Organization [employer] Address [address] [facility] [facility] [address] 7t [place] [address] Care Team Providers Care Landcare Officer Name Role Phone Marisbael Michel MD Primary Care Provider [phone] Encounter Details Date Type Department Care Team ([facility] st Contact Info) Description 10/01/2023 Orders Only [facility] [address] [place], [place] [phone] Marisabel Michel MD 230 [place], [place] [phone] Social History Tobacco Use Types Packs/Day Years [...] Description 12/12/2025 2:15 PM EST Office Visit [facility] 230 [place] [address] Marisabel Michel MD 230 [place] [address] documented as of this encounter Visit Diagnoses Not on filedocumented in this encounter Additional Health Concerns Assessment Noted Time PHQ-9 Depression Total Score: 2 02/25/20 23 1:12 PM EDT documented as of this encounter Care Teams Landcare Officer Relationship Specialty Start Date End Date Marisabel Michel MD 230 [place] [address] PCP - General Family Medicine 09/04/11 documented as of this encounter
--- OUTSIDE RECORDS SUMMARY | 2025-11-13 20:11 | XMS_ITS | Encounter Summary ---
Author Organization [employer] Address [address] [facility] 7t [place] [address] Care Team Providers Care Heavy Forger Name Role Phone Marisabel Michel MD Primary Care Provider [phone] Encounter Details Date Type Department Care Team ([facility] st Contact Info) Description 08/23/2024 Orders Only [facility] 230 [place], [place] [phone] Marisabel Michel MD 230 [place] [address] Social History Tobacco Use Types Packs/Day Years [...] Description 12/12/2025 2:15 PM EST Office Visit [facility] [address] [place] [address] Marisabel Michel MD [address] [place] [address] documented as of this encounter Visit Diagnoses Not on filedocumented in this encounter Additional Health Concerns Assessment Noted Time PHQ-9 Depression Total Score: 0 03/29/20 24 3:23 PM EDT documented as of this encounter Care Teams Heavy Forger Relationship Specialty Start Date End Date Marisabel Michel MD [address] [place] [phone] PCP - General Family Medicine 09/04/11 documented as of this encounter
--- OUTSIDE RECORDS SUMMARY | 2025-11-13 20:11 | XMS_ITS | Encounter Summary ---
Author Organization [employer] Address [address] [place] [address] 7t [place] [address] Care Team Providers Care Fringing Machine Operator Name Role Phone Marisabel Michel MD Primary Care Provider [phone] Encounter Details Date Type Department Care Team (Late st Contact Info) Description 06/30/2023 Abstract [facility] [address] [place] [address] [phone] Marisabel Michel MD [address] [place] [address] [phone] Social History Tobacco Use Types Packs/Day Years [...] Description 12/12/2025 2:15 PM EST Office Visit [facility] [address] [place] [address] [phone] Marisabel Michel MD [address] [place] [address] [phone] documented as of this encounter Procedures Procedure [...] documented as of this encounter Care Teams Fringing Machine Operator Relationship Specialty Start Date End Date Marisabel Michel MD 230 [place] [address] PCP - General Family Medicine 09/04/11 documented as of this encounter
--- OUTSIDE RECORDS SUMMARY | 2025-11-13 20:11 | XMS_ITS | Encounter Summary ---
Author Organization [employer] Address [address] [facility] 7t [place] [address] Care Team Providers Care Abalone Sheller Name Role Phone Marisabel Michel MD Primary Care Provider [phone] Encounter Details Date Type Department Care Team ([facility] st Contact Info) Description 09/08/2024 Orders Only [facility] 230 [place], [place] [phone] Marisabel Michel MD 230 [place] [address] Social History Tobacco Use Types Packs/Day Years [...] Description 12/12/2025 2:15 PM EST Office Visit [facility] [address] [place] [address] Marisabel Michel MD [address] [place] [address] documented as of this encounter Visit Diagnoses Not on filedocumented in this encounter Additional Health Concerns Assessment Noted Time PHQ-9 Depression Total Score: 0 03/29/20 24 3:23 PM EDT documented as of this encounter Care Teams Abalone Sheller Relationship Specialty Start Date End Date Marisabel Michel MD [address] [place] [phone] PCP - General Family Medicine 09/04/11 documented as of this encounter
--- OUTSIDE RECORDS SUMMARY | 2025-11-13 20:11 | XMS_ITS | Continuity of Care Document ---
Author Name [facility], Medical Address [address] [place] [phone] Organization Unknown Address [address] [place] [address] Medications No known medications Problems No known problems
--- OUTSIDE RECORDS SUMMARY | 2025-11-13 20:11 | XMS_ITS | Encounter Summary ---
Author Organization [employer] Address [address] [facility] 7t [place] [address] Care Team Providers Care Plans Examiner Name Role Phone Marisabel Michel MD Primary Care Provider Encounter Details Date Type Department Care Team ([facility] st Contact Info) Description 03/30/2025 Orders Only [facility] [address] [place], [place] [phone] Marisabel Michel MD 230 [place] [address] Social History Tobacco Use Types Packs/Day Years [...] 2:15 PM EST Office Visit [facility] [address] [place] [address] Marisabel Michel MD [address] [place] [address] documented as of this encounter Visit Diagnoses Not on filedocumented in this encounter Additional Health Concerns Assessment Noted Time PHQ-9 Depression Total Score: 0 03/29/20 24 3:23 PM EDT documented as of this encounter Care Teams Plans Examiner Relationship Specialty Start Date End Date Marisabel Michel MD [address] [place] [address] PCP - General Family Medicine 09/04/11 documented as of this encounter
--- OUTSIDE RECORDS SUMMARY | 2025-11-13 20:11 | XMS_ITS | Encounter Summary ---
Author Organization [employer] Address [address] [facility] 7t [place] [address] Care Team Providers Care Stem Roller Name Role Phone Marisabel Michel MD Primary Care Provider [phone] Encounter Details Date Type Department Care Team ([facility] st Contact Info) Description 03/28/2025 Orders Only [facility] 230 [place], [place] [phone] Marisabel Michel MD [address] [place], [place] [phone] Prediabetes (Primary Dx); Screening for lipid disorders; [...] Description 12/12/2025 2:15 PM EST Office Visit [facility] [address] [place] [address] Marisabel Michel MD [address] [place] [address] documented as of this encounter Procedures Procedure [...] EDT) Sodium 142 135 - 145 mmol/L [facility] Potassium 3.7 3.3 - 5.1 mmol/L [facility] Chloride 107 96 - 108 mmol/L [facility] Carbon Dioxide 25 22 - 29 mmol/L [facility] Anion Gap 14 12 - 20 [facility] Urea Nitrogen (BUN) 17(H) 9 - 16 mg/dL [facility] Creatinine, Serum 0.64 0.5 - 1.4 mg/dL [facility] Estimated Glomerular Filt Rate >60 [facility] Comment:Chronic Kidney Disea se: Estimated GFR < 60 mL/min/1.99n2Aghjmr Kidney Disease: Estimated GFR < 15 mL/min/1.73m2 Glucose 90 60 - 115 mg/dL [facility] Calcium 9.7 8.4 - 10.2 mg/dL [facility] Bilirubin, Total 0.4 0.0 - 1.0 mg/dL [facility] Aspartate Amino Transferase 28 5 - 31 U/L [facility] Alanine Aminotransferase 27 0 - 31 U/L [facility] Total Protein 7.1 6.5 - 8.0 g/dL [facility] Albumin Level 4.2 3.5 - 5.0 g/dL [facility] Alkaline Phosphatase 62 39 - 117 U/L [facility] Blood Venous blood specimen / Unknown 04/07/2025 3:01 PM EDT 04/07/2025 3:01 PM EDT us Marisabel Michel MD LAB BLOOD ORDERABLES Final Resul t [facility] [address] [place] [phone] * (ABNORMAL) Hemoglobin A1c (04/07/2025 3:01 PM EDT) Hemoglobin A1c 6.3(H) <6.0 % [facility] Comment:Hemoglobin A1C Refer ence Range Adults: 4.8 - 6.0 % Non diabetic: < 6.0 % Goal: < 7.0 %Additional Action Suggested: > 8.0 %Note: Hemoglobin A1c results are invalid for patients with abnormal amounts of HbF. Blood transfusions may impact the HbA1c concentration in the patient sample. Estimated Average Glucose 134 mg/dL [facility] Comment:eAG = Estimated ave rage glucose which is %A1C expressed asaverage glucose, using the formula of the M8H-SwbnfbjDlfrmii Glucose study (ADAG), Diabetes Care, Vol.31,#8,Jun. 2007 Blood Venous blood specimen / Unknown 04/07/2025 3:01 PM EDT 04/07/2025 3:01 PM EDT Marisabel Michel MD LAB BLOOD ORDERABLES Final Resul t Performing Organization Address [facility] de Phone Number [facility] [address] [place] [phone] * (ABNORMAL) Lipid Panel with Reflex to Direct LDL (04/07/2025 3:01 PM EDT) Triglycerides 100 <150 mg/dL [facility] Comment:Desirable Triglyceri de: less than 150 mg/dLBorderline High Triglyceride 150-199 mg/dLHigh Triglyceride: 200-499 mg/dLVery High Triglyceride: greater than or equal to 5OO mg/dL Cholesterol 196 <200 mg/dL [facility] Comment:Desirable Cholestero l: less than 200 mg/dLBorderline High Cholesterol: 200-239 mg/dLHigh Cholesterol: greater than 239 mg/dL LDL Cholesterol Calculated 130(H) <100 mg/dL [facility] Comment:Desirable LDL: less than 100 mg/dLNear Optimal/Above Optimal LDL: 110- 129 mg/dLBorderline High LDL: 130-159 mg/dLHigh LDL: 160-189 mg/dLVery High LDL: greater than or equal to 190 mg/dL HDL Cholesterol 46 >40 mg/dL [facility] Comment:Desirable HDL: great er than 40 mg/dL Note: This HDL assay may give artificially low results in patients with liver disease. Blood 04/07/2025 3:01 PM EDT 04/07/2025 3:01 PM EDT us Marisabel Michel MD LAB BLOOD ORDERABLES Final Resul t Performing Organization Address [facility] Co de Phone Number [facility] [address] [place] [phone] [phone] documented in this encounter Visit Diagnoses Diagnosis Prediabetes- Primary Other abnormal glucose Screening for lipid disorders Screening for diabetes mellitus Hypokalemia Hypopotassemia documented in this encounter Additional Health Concerns Assessment Noted Time PHQ-9 Depression Total Score: 0 03/29/20 24 3:23 PM EDT documented as of this encounter Care Teams Stem Roller Relationship Specialty Start Date End Date Marisabel Michel MD [address] [place] [phone] PCP - General Family Medicine 09/04/11 documented as of this encounter
--- OUTSIDE RECORDS SUMMARY | 2025-11-13 20:11 | XMS_ITS | Encounter Summary ---
Author Organization [employer] Address [address] [facility] 7t [place] [address] Care Team Providers Care Isolation Washer Name Role Phone Marisabel Michel MD Primary Care Provider [phone] Reason for Visit * Reason Onset Date Comments Med Refill 09/15/2023 Encounter Details Date Type Department Care Team ([facility] st Contact Info) Description 09/15/2023 Telephone [facility] 230 [place], [place] [phone] Marisabel Michel MD 230 [place], [place] [phone] Med Refill Social History Tobacco Use Types [...] t he electric, gas, oil or water [employer] threatened to shut off services in your [...] on 09/14/23. * Telephone Encounter - Alexa Chui - 09/15/2023 3:46 PM EDT Tc from pt requesting med refill on naproxen (Naprosyn) 375 MG tablet documented in this encounter Plan of Treatment Upcoming Encounters Date Type Department Care Team (Late st Contact Info) Description 12/12/2025 2:15 PM EST Office Visit [facility] [address] [place] [phone] Marisabel Michel MD [address] [place] [phone] documented as of this encounter Visit Diagnoses Not on filedocumented in this encounter Additional Health Concerns Assessment Noted Time PHQ-9 Depression Total Score: 2 02/25/20 1:12 PM EDT documented as of this encounter Care Teams Isolation Washer Relationship Specialty Start Date End Date Marisabel Michel MD [address] [place] [phone] PCP - General Family Medicine 09/04/11 documented as of this encounter
--- OUTSIDE RECORDS SUMMARY | 2025-11-13 20:11 | XMS_ITS | Encounter Summary ---
Author Organization [employer] Address [address] [facility] 7t [place] [address] Care Team Providers Care Dray Truck Driver Name Role Phone Marisabel Michel MD Primary Care Provider [phone] Reason for Visit * Reason Onset Date Comments Appointment Request 01/23/2023 Encounter Details Date Type Department Care Team (Late Contact Info) Description 01/23/2023 Telephone [facility] [address] [place] [address] [phone] Marisabel Michel MD [address] [place] [phone] Appointment Request Social History Tobacco Use Types [...] appt with pcp. Please contact pt at [phone] documented in this encounter Plan of Treatment Upcoming Encounters Date Type Department Care Team (Late Contact Info) Description 12/12/2025 2:15 PM EST Office Visit [facility] 230 [place] [address] Marisabel Michel MD [address] [place], [place] [phone] documented as of this encounter Visit Diagnoses Not on filedocumented in this encounter Care Teams Dray Truck Driver Relationship Specialty Start Date End Date Marisabel Michel MD [address] [place], [place] [phone] PCP - General Family Medicine 09/04/11 documented as of this encounter
--- OUTSIDE RECORDS SUMMARY | 2025-11-13 20:11 | XMS_ITS | Encounter Summary ---
Author Organization [employer] Address [address] [place] [address] [place], [place] [address] Care Team Providers Care Stuffing Machine Operator Name Role Phone Marisabel Michel MD Primary Care Provider [phone] Reason for Referral * Consultation (Routine) - Closed Specialty Diagnoses / Procedures Referred By Vee t Referred To Contact Physical Therapy Diagnoses Cerebral palsy, unspecified type (CMS/HCC) (HCC) Wheelchair dependence Marisabel Michel MD [address] [place] [address] Phone: tel: fax: Referral ID Status Reason Start Date Expiration Date V isits Requested Visits Authorized [id number] Closed Specialty Services Required 11/25/2024 11/25/2025 1 1 * Consultation (Routine) - Closed Specialty Diagnoses / Procedures Referred By Contcarlos t Referred To Contact Occupational Therapy Diagnoses Cerebral palsy, unspecified type (CMS/HCC) (HCC) Wheelchair dependence Marisabel Michel MD [address] [place] [address] Phone: tel: fax: Referral ID Status Reason Start Date Expiration Date V isits Requested Visits Authorized [id number] Closed Specialty Services Required 11/25/2024 11/25/2025 1 1 Encounter Details Date Type Department Care Team (Late st Contact Info) Description 11/25/2024 Orders Only [facility] [address] [place] [phone] Marisabel Michel MD [address] [place] [address] Cerebral palsy, unspecified type (CMS/HCC) (Primary Dx); [...] Description 12/12/2025 2:15 PM EST Office Visit [facility] 230 [place] [address] Marisabel Michel MD [address] [place] [address] Scheduled Referrals Name Type Priority Associated Diagnoses [...] documented as of this encounter Care Teams Stuffing Machine Operator Relationship Specialty Start Date End Date Marisabel Michel MD [address] [place] [address] PCP - General Family Medicine 09/04/11 documented as of this encounter
--- OUTSIDE RECORDS SUMMARY | 2025-11-13 20:11 | XMS_ITS | Encounter Summary ---
Author Organization [employer] Address [address] [facility] [address] 7t [place] [address] Care Team Providers Care Bisque Cleaner Name Role Phone Marisabel Michel MD Primary Care Provider [phone] Encounter Details Date Type Department Care Team ([facility] st Contact Info) Description 10/21/2023 Orders Only [facility] [address] [place], [place] [phone] Marisabel Michel MD [address] [place] [address] Open wound of right lower leg due [...] Description 12/12/2025 2:15 PM EST Office Visit [facility] [address] [place], [place] [phone] Marisabel Michel MD [address] [place] [address] documented as of this encounter Visit Diagnoses Diagnosis Open wound of right lower leg due to dog bite- Primary Peripheral venous insufficiency Unspecified venous (peripheral) insufficiency Venous stasis dermatitis of both lower extremities documented in this encounter Additional Health Concerns Assessment Noted Time PHQ-9 Depression Total Score: 2 02/25/20 23 1:12 PM EDT documented as of this encounter Care Teams Bisque Cleaner Relationship Specialty Start Date End Date Marisabel Michel MD [address] [place] [phone] PCP - General Family Medicine 09/04/11 documented as of this encounter
--- OUTSIDE RECORDS SUMMARY | 2025-11-13 20:11 | XMS_ITS | Encounter Summary ---
Author Organization Formerly [facility] Address [address] [place] [address] Encounters * [facility]25[facility]14 { reasonForRequest : Pt recently seen by [facility] on 11/07 and reporting feeling worse>having to go to the bathroom every 5m to urinate, states she had a bowel movement this morning>lower back pain , patientReports : Painful urination; Frequent and increased urination with flank pain; Painful urination with or without fever , denies :[ Unable to void greater than 5 hours , Erection that will not go away after 2 hours ,"Fall or trauma that results in urinary incontinence in the setting of pain , Fall or injury that results in incontinence in the absence of pain , Lower back pain either unilateral or bilateral, unable to void, painful urination -hematuria , Inability to fully empty bladder ], chiefComplaints : Urinary Symptoms , pmh : COPD/Asthma, Hypertension, Kidney Stones, Sleep Apnea , allergies : Bactrim, Symbicort&qu ot;, otherAllergies :null, painAssessment : , visitOutcome : , additionalComments : 54 y.o female complains of Urinary Symptoms\n\nSelf- referring. Recently seen by this service 11/08 for similar symptoms. Was prescribed cefaDROXil 500 mg capsule 2 capsules every day for 5 days. UC MGF. Now reporting increased discomfort and lower back pain starting yesterday. Voiding q.30 mins starting last night. Significant output each time. Reporting dysuria and pelvis discomfort. Denies hematuria. Unsure of odor to urine. Baseline incontinence, worse lately. Denies fever chills. Lower back pain - treating with PRN tylenol and daily naproxen. Has not been able to f/u w/ PCP about symptoms as of yet. Not on anticoagulation. Denies CKD.\n\nI provided information on the mobile health provider response time and advised the patient and/or caregiver to monitor reported signs and symptoms. I discussed the warning signs of when to seek emergency care. } Dispatched to the call address for the female with UTI symptoms. Pt states she was seen by [facility] team on the 16 of this month and was placed on Keflex. She has a dose left that she will finish tomorrow but her symptoms never went away and now she has back/abd pain in addition to it. Pt complainsof burning when urinating, urgency and foul smelling urine. She denies chest pain n/v/d, diff breathing, headache, fevers or other complaints at this time. Pt states she has a Hx of kidney stones andis checked every year but isn't due for awhile. Pt was found sitting in living room chair, CAOx4, airway open and patent, breathing non labored, able to speak in full sentences, -JVD, -HEENT, skin PWD with good turgor, mucous membranes pink and moist, abd soft non tender/distended, pupils PERRL, lungs CTA, afebrile, +CMSx4, -edema/swelling. UA (-) Possible kidney stone. Pt was assessed. Urine sample collected and UA conducted with results uploaded to Pts portal. C consulted. ED advised- Pt agreeable. 911 called for the Pt, I remained on scene until EMS arrived. [facility] ALL times are approx. ORAL_MEDICATION, EKG, POC_BLOODWORK, GLUCOSE Written by Medical [facility] on 2025-11-14
--- OUTSIDE RECORDS SUMMARY | 2025-11-13 20:11 | XMS_ITS | Continuity of Care Document ---
Author Name [facility], Medical Address [address] [place] [id number] Organization Unknown Address [address] [place] [phone] Medications No known medications Problems No known problems
--- OUTSIDE RECORDS SUMMARY | 2025-11-13 20:11 | XMS_ITS | Encounter Summary ---
Author Organization [employer] Address [address] [place] [address] Care Team Providers Care Cupola Patcher Name Role Phone Marisabel Michel MD Primary Care Provider [phone] Encounter Details Date Type Department Care Team ([facility] st Contact Info) Description 08/01/2024 Orders Only [facility] [address] [place], [place] [phone] Marisabel Michel MD [address] [place], [place] [phone] Prediabetes (Primary Dx) Social History Tobacco Use [...] 12/12/2025 2:15 PM EST Office Visit [facility] [address] [place] [address] [phone] Marisabel Michel MD [address] [place] [phone] documented as of this encounter Visit Diagnoses Diagnosis Prediabetes- Primary Other abnormal glucose documented in this encounter Additional Health Concerns Assessment Noted Time PHQ-9 Depression Total Score: 0 03/29/20 24 3:23 PM EDT documented as of this encounter Care Teams Cupola Patcher Relationship Specialty Start Date End Date Marisabel Michel MD [address] [place] [phone] PCP - General Family Medicine 09/04/11 documented as of this encounter
--- OUTSIDE RECORDS SUMMARY | 2025-11-13 20:11 | XMS_ITS | Encounter Summary ---
Author Organization [employer] Address [address] [place] [address] Care Team Providers Care Bit Sharpener Operator Name Role Phone Marisabel Michel MD Primary Care Provider [phone] Reason for Visit * Reason Comments Med Refill Encounter Details Date Type Department Care Team ([facility] st Contact Info) Description 10/08/2023 Refill [facility] [address] [place], [place] [phone] Angela Kirkland DO [address] [place], [place] [phone] Osteopenia, unspecified location Social History Tobacco Use [...] the past 12 months, has t he [employer], gas, oil or water company threatened to [...] 12/12/2025 2:15 PM EST Office Visit [facility] [address] [place] [phone] Marisabel Michel MD [address] [place] [address] documented as of this encounter Visit Diagnoses Diagnosis Osteopenia, unspecified location documented in this encounter Additional Health Concerns Assessment Noted Time PHQ-9 Depression Total Score: 2 02/25/20 23 1:12 PM EDT documented as of this encounter Care Teams Bit Sharpener Operator Relationship Specialty Start Date End Date Marisabel Michel MD [address] [place] [phone] PCP - General Family Medicine 09/04/11 documented as of this encounter
--- OUTSIDE RECORDS SUMMARY | 2025-11-13 20:11 | XMS_ITS | Clinical Summary ---
Author Organization [employer] Address [address] [facility] [address] [place] [address] Care Team Providers Care Electrical Technician Instructor Name Role Phone Marisabel Michel MD Primary Care Provider [phone] Allergies Active Allergy Reactions Criticality Noted Date [...] day to the affected area(s) Active Fluticasone Furoate-Vilanterol (Breo Ellipta) 200-25 MCG/ACT aerosol powder Activ e nystatin (Mycostatin) creamIndications:C andidiasis of breast APPLY TOPICALLY TWICE A DAY 60 g 11 3 Active Blood Pressure Monitor misc Check BP regularly as directed by your health care provider and as needed when you feel sick 1 each 4 Active furosemide (Lasix) 40 MG tablet Take 1 tablet by mouth Once per day. Active triamcinolone (Kenalog) 0.025 % ointment PLEASE SEE ATTACHED FOR DETAILED DIRECTIONS 4 Active ascorbic acid (Vitamin C) 500 MG tablet Take 1 tablet (500 mg) by mouth at bedtime. 90 tablet 3 4 Active hydrOXYzine HCl (Atarax) 25 MG tablet Take 1 tablet (25 mg) by mouth every 8 (eight) hours if needed for itching or allergies. 90 tablet 3 4 Active Bismuth Subsalicylate 262 MG tablet Take 2 tablets by mouth 4 times daily as needed 112 tablet 2 4 Active ondansetron ODT (Zofran-ODT) 4 MG disintegrating tablet Take 1 tablet (4 mg) by mouth every 8 (eight) hours if needed for nausea or vomiting. 30 tablet 3 4 Active albuterol (Ventolin HFA) 108 (90 Base) MCG/ACT inhaler Inhale 1 puff every 6 (six) hours if needed. Active loperamide (Imodium A-D) 2 MG tablet Take 1 tablet by mouth if needed in the morning, at noon, in the evening, and at bedtime for diarrhea. OTC Active povidone-iodine (Betadine) 10 % ointment Apply 1 Application. topically if needed for wound care. OTC Active glucosamine-chondr oitin 500-400 MG tablet Take 1 tablet by [...] NOT CRUSH OR CHEW. 180 capsule 3 5 Active diphenhydrAMINE (Banophen) 25 MG capsuleIndications :Allergic rhinitis due to other allergic trigger, unspecified seasonality TAKE 2 CAPSULES BY MOUTH EVERY 6 HOURS 30 capsule 3 5 Active clotrimazole (Mycelex) 10 MG leonardo TAKE 1 TABLET BY MOUTH THREE TIMES DAILY 90 Leonardo 1 5 Active amitriptyline (Elavil) 10 MG tablet TAKE 1 TABLET BY MOUTH AT BEDTIME 90 tablet 3 5 Active COVID-19 At Home Antigen Test kit Use as instructed 2 kit 1 5 Active alendronate (Fosamax) 70 MG tablet TAKE 1 TABLET BY MOUTH IN THE MORNING ONCE WEEKLY AT LEAST 30 MINS BEFORE FIRST FOOD, BEVERAGE, MEDICATION 12 tablet 3 5 Active montelukast (Singulair) 10 MG tabletIndications: Moderate persistent asthma without complication TAKE 1 TABLET BY MOUTH EVERY DAY 90 tablet 1 5 Active cholecalciferol (D3-1000) 25 MCG (1000 UT) capsule TOME 1 CAPSULA POR VIA ORAL TODOS [place] 90 capsule 3 5 Active naproxen (Naprosyn) 375 MG tablet TOME 1 TABLETA POR VIA ORAL DOS VECES AL MYAH CUANDO SEA NECESARIO 30 tablet 5 Active fluticasone (Flonase) 50 MCG/ACT nasal spray USE 1-2 SPRAYS IN EACH NOSTRIL ONCE PER DAY. SHAKE GENTLY. CLEAN TIP AND REPLACE CAP. 48 mL 1 5 Active ciclopirox (Loprox) 0.77 % cream APLIQUE AL AREA AFECTADA DOS VECES AL MYAH 90 g 1 5 Active gabapentin (Neurontin) 100 MG capsule TAKE 1 CAPSULE BY MOUTH AT BEDTIME. MAY TAKE 2 CAPSULES IF PAIN RELIEF IS INADEQUATE. 90 capsule 3 5 Active docusate sodium (Colace) 100 MG capsule TAKE 1 CAPSULE BY MOUTH TWICE A DAY 180 capsule 1 5 Active ferrous sulfate 325 (65 Fe) MG tablet TAKE 1 TABLET BY MOUTH EVERY OTHER DAY 45 tablet 1 5 Active Oyster Shell Calcium 500 MG tabletIndications: Osteopenia, unspecified location TAKE 1 TABLET BY MOUTH EVERY OTHER DAY 45 tablet 1 5 Active Active Problems Problem Noted Date Diagnosed Date Chronic right shoulder pain 06/08/2025 Assessment & Plan (09/17/2025 10:29 AM EDT): - possible rotator cuff tear - in the setting of CP - evaluated by physiatry provider - possible botulinum injection - check the status of hospital bed Assessment & Plan (06/08/2025 6:31 PM EDT): - possible rotator cuff tear - in the setting of CP - evaluated by physiatry provider - possible botulinum injection - check the status of hospital bed Acquired hammer toe of left foot 02/18/2025 Assessment & Plan (02/18/2025 5:07 AM EDT): - following with pressing machine tender - she is pleased with her new pressing machine tender's care - continue following the recommendation from the pressing machine tender Acquired hammer toe of right foot 02/18/2025 Assessment & Plan (02/18/2025 5:07 AM EDT): - following with pressing machine tender - she is pleased with her new pressing machine tender's care - continue following the recommendation from the pressing machine tender Ulcer of toe of left foot (CMS/HCC) 02/18/2025 Assessment & Plan (02/18/2025 5:07 AM EDT): - following with pressing machine tender - she is pleased with her new pressing machine tender's care - continue following the recommendation from the pressing machine tender Environmental allergies 10/05/2024 Orthopnea 10/05/2024 Osteoarthritis of left knee 10/05/2024 Osteoarthritis of right knee 10/05/2024 Pain and swelling of right lower leg 09/25/2024 Chronic pain of right knee 05/09/2024 Assessment & Plan (09/17/2025 10:31 AM EDT): - x-ray on 05/09/24 showed marked elevation of the patella and marked osteoarthritis of medial and lateral compartment - MRI on 05/27/24 showed marked patella glynn, mild medial / lateral compartment osteoarthritis. - seen by [facility] on 05/18/24 and was given intraarticular steroid treatment - s/p hyaluronic acid derivative injection Assessment & Plan (06/28/2024 5:43 AM EDT): - x-ray on 05/09/24 showed marked elevation of the patella and marked osteoarthritis of medial and lateral compartment - MRI on 05/27/24 showed marked patella glynn, mild medial / lateral compartment osteoarthritis. - seen by [facility] on 05/18/24 and was given intraarticular [...] of osteoporosis / osteopenia - Following with pressing machine tender; seen yesterday - Evaluate with MRI due [...] scan evaluation Prediabetes 07/01/2023 Assessment & Plan (09/08/2025 10:21 PM EDT): - strong family history of DM (mother, father, sisters) - Since 2022, it has been > 6% - Highest A1C 6.4% on 07/01/23 - Most Recent: A1c 6.0% on 08/28/25 - patient has been receiving steroid injection to her knee periodically - continue working on lifestyle modifications - discussed about medication option; we agreed not to start at this time Assessment & Plan (06/08/2025 6:17 PM EDT): [...] modifications Primary hypertension 03/08/2023 Assessment & Plan (09/17/2025 10:05 AM EDT): -Goal BP < 130/80 per ACC/AHA guideline (Treatment threshold >= 140/90 ) -Continue working on lifestyle modifications -Continue self-monitoring BP -Continue judicious use of furosemide 40 ng daily -Consider adding ARB -Treatment Hx: lisinopril 5 mg daily started in 10/2022, decreased to 2.5 mg daily in February 2023, then discontinued as she developed symptomatic hypotension because she started taking furosemide regularly for edema. Assessment & Plan (06/08/2025 6:40 PM EDT): [...] PCP and furosemide which was prescribed by high speed warper tender -Continue working on lifestyle modifications -Continue self-monitoring [...] PCP and furosemide which was prescribed by high speed warper tender -Continue working on lifestyle modifications -Continue self-monitoring [...] PCP and furosemide which was prescribed by high speed warper tender -Continue working on lifestyle modifications -Continue self-monitoring [...] (obstructive sleep apnea) 03/08/2023 Assessment & Plan (09/17/2025 10:27 AM EDT): -home sleep study on 09/23/21 revealed moderate FARTUN and hypoxemia the lowest 72%. In-lab sleep study was recommended -in-lab sleep study 02/09/23 Auto PAP 4-8 cm H2O was recommended. -continue following with sleep medicine clinic Assessment & Plan (06/05/2025 12:51 PM EDT): [...] Plan (06/08/2025 6:25 PM EDT): -followed by urologist Sherwin seen on 04/11/25, annual f/u -most recent US in March 2025 a possible tiny stone in R kidney -s/p ESWL of R kidney stone on 04/05/2018 and 04/28/2018 -continue water intake 2L/day, preferrably lemon water Assessment & Plan (07/01/2023 3:47 PM EDT): -followed by urologist Sherwin seen on 04/07/23, annual f/u -most recent [...] Plan (07/29/2024 10:22 AM EDT): -followed by welding machine operator plasma arc, Dr. Rivers -advised to schedule appointment with Dr. Rivers to evaluate for her cellulitis; possible stasis dermatitis and/or atopic dermatitis. Assessment & Plan (03/08/2023 7:04 PM EDT): -followed by welding machine operator plasma arc, Dr. Rivers Tubular adenoma of colon 03/08/2023 [...] lower extremiti es 03/08/2023 Assessment & Plan (09/17/2025 10:19 AM EDT): -Followed by Principle Software Engineer. -Cont moisturization. -Leg elevation -Low sodium diet - still waiting for hospital bed Assessment & Plan (06/08/2025 6:26 PM EDT): -Followed by Principle Software Engineer. -Cont moisturization -Continue compression stocking -Leg elevation -Low sodium diet Assessment & Plan (07/01/2023 3:46 PM EDT): -Followed by Principle Software Engineer. -Cont moisturization. -Leg elevation -Low sodium diet Assessment & Plan (03/08/2023 7:16 PM EDT): Followed by Principle Software Engineer. -Cont moisturization. -Keep legs elevated. 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 Assessment & Plan (06/28/2024 5:46 AM EDT): - bilateral - following with [facility] orthopedic provider - received steroid injection to left knee in January 2023 - received steroid injection to right knee in April 2024 Assessment & Plan (03/08/2023 6:55 PM EDT): - seen by [facility] orthopedic provider on 12/26/22 - received steroid injection to left knee Assessment & Plan (10/29/2022 2:24 PM EST): Last X-ray in 2016 showed patella glynn Will refer to orthopedist so that they may be able to give her some recommendations on which type of brace to wear and / or physical therapy Recurrent UTI 10/28/2022 Assessment & Plan (09/17/2025 10:24 AM EDT): UTI 3-4 times per year. - most recent UTI Dx in May 2025, initially treated with nitrofurantoin, then switched to cefadoxil. Urine culture grew E.coli, Klebsiella, and Proteus, resistant to nitrofurantoin and tetracycline. - urine culture in 04/01/24 Citrobacter koseri > 100,000 cfu/ml, pansensitive. Tx with cipro -April 2022 E. Coli resistant to levofloxacin -Oct 2017 - E.coli christian-senstive, negative ESBL and Proteus mirabelis resitant to nitrofurantoin, ceftriaxone, and ampicillin. Treated with levofloxacin. -Continue adequate hydration, periodic appt with urologist -Consider methenamine for ABX-sparing prophylaxis Assessment & Plan (07/01/2024 2:48 PM EDT): [...] AM EDT): Previously followed by allergy / adolescent medicine specialist, Dr. Loco, now waiting for an appt with new specialist Evaluated by [facility] provider in 2022, patient was offered immunotherapy, but had been hesitant Currently following with [facility] pulmonology for both allergy, asthma, and FARTUN Continue cetirizine 10 mg bid Continue montelukast 10 mg daily Continue flonase Assessment & Plan (12/25/2023 6:13 AM EST): Previously followed by allergy / adolescent medicine specialist, Dr. Loco, now waiting for an appt with new specialist Evaluated by [facility] provider in 2022, patient was offered immunotherapy, but had been hesitant Currently following with [facility] pulmonology for both allergy, asthma, and FARTUN Continue cetirizine 10 mg bid Continue montelukast 10 mg daily Continue flonase Assessment & Plan (03/08/2023 7:14 PM EDT): Previously followed by allergy / adolescent medicine specialist, Dr. Loco, now waiting for an appt with new specialist Continue cetirizine 10 mg bid Continue montelukast 10 mg daily Continue flonase Assessment & Plan (10/29/2022 2:29 PM EST): Followed by allergy / adolescent medicine specialist, Dr. Mcelroy Continue cetirizine 10 mg bid Continue montelukast 10 mg daily Asthma 08/29/2015 Assessment & Plan (09/17/2025 10:29 AM EDT): -Previously followed by Dr. Loco, allergy /adolescent medicine specialist -Currently following with Dr. Pederson, [facility] pulmonology -Exacerbation 1-2 times per year -Last exacerbation in November 2020, Rx Prednisone -Continue fluticasone furonate / vilanterol (Breo) -Continue montelukast -Continue albuterol HFA/neb prn Treatment Hx: Advair, difficulty using Diskus; Pulmicort; umeclidinium (Incruse); tiotropium (Spiriva) Assessment & Plan (06/08/2025 6:24 PM EDT): -Previously followed by Dr. Loco, allergy /adolescent medicine specialist -Currently following with Dr. Pederson, [facility] pulmonology -Exacerbation 1-2 times per year -Last exacerbation in November 2020, Rx Prednisone -Continue fluticasone furonate / vilanterol (Breo) -Continue tiotropium (Spiriva) -Continue montelukast -Continue albuterol HFA/neb prn Treatment Hx: Advair, difficulty using Diskus; Pulmicort; Incruse Assessment & Plan (02/14/2025 9:44 AM EDT): -Previously followed by Dr. Loco, allergy /adolescent medicine specialist -Currently following with Dr. Pederson, [facility] pulmonology -Exacerbation 1-2 times per year -Last exacerbation in November 2020, Rx Prednisone (-Continue Spiriva) - Dr. Loco prescribed, but not mentioned in Dr. Pederson's note -Continue Breo -Continue montelukast -Continue albuterol HFA/neb prn Treatment Hx: Advair, difficulty using Diskus; Pulmicort; Incruse Assessment & Plan (06/28/2024 5:58 AM EDT): -Previously followed by Dr. Loco, allergy /adolescent medicine specialist -Currently following with Dr. Pederson [facility] pulmonology -Exacerbation 1-2 times per year -Last exacerbation in November 2020, Rx Prednisone (-Continue Spiriva) - Dr. Loco prescribed, but not mentioned in Dr. Pederson's note -Continue Breo -Continue montelukast -Continue albuterol HFA/neb prn Treatment Hx: Advair, difficulty using Diskus; Pulmicort; Incruse Assessment & Plan (03/29/2024 5:07 PM EDT): -Previously followed by Dr. Loco, allergy /adolescent medicine specialist -Currently following with Dr. Pederson, [facility] pulmonology -Exacerbation 1-2 times per year -Last exacerbation in November 2020, Rx Prednisone (-Continue Spiriva) - Dr. Loco prescribed, but not mentioned in Dr. Pederson's note -Continue Breo -Continue montelukast -Continue albuterol HFA/neb prn Treatment Hx: Advair, difficulty using Diskus; Pulmicort; Incruse Assessment & Plan (12/25/2023 6:04 AM EST): -Previously followed by Dr. Loco, allergy /adolescent medicine specialist -Currently following with Dr. Pederson, [facility] pulmonology -Exacerbation 1-2 times per year -Last exacerbation in November 2020, Rx Prednisone (-Continue Spiriva) - Dr. Loco prescribed, but not mentioned in Dr. Pederson's note -Continue Breo -Continue montelukast -Continue albuterol HFA/neb prn Treatment Hx: Advair, difficulty using Diskus; Pulmicort; Incruse Assessment & Plan (07/01/2023 3:43 PM EDT): -Previously followed by Dr. Loco, allergy /adolescent medicine specialist -Exacerbation 1-2 times per year -Last exacerbation in November 2020, Rx Prednisone -Continue Spiriva -Continue Breo -Continue Singulair -Continue albuterol HFA/neb prn Treatment Hx: Advair, difficulty using Diskus; Pulmicort; Incruse Assessment & Plan (03/08/2023 6:59 PM EDT): -Previously followed by Dr. Loco, allergy /adolescent medicine specialist -Exacerbation 1-2 times per year -Last exacerbation in November 2020, Rx Prednisone -Continue Spiriva -Continue Breo -Continue Singulair -Continue albuterol HFA/neb prn Treatment Hx: Advair, difficulty using Diskus; Pulmicort; Incruse Assessment & Plan (10/28/2022 9:38 PM EST): Sawdust Machine Operator, Dr. Mcelroy, upcoming appt Continue Breo Continue Singulair Continue albuterol HFA / neb prn Headache 08/29/2015 Assessment & Plan (02/14/2025 9:43 AM EDT): -optimize Tx for FARTUN Assessment & Plan (12/25/2023 6:02 AM EST): -optimize Tx for FARTUN Chronic peripheral venous hypertension 5 Wheelchair dependence 05/22/2015 Assessment & Plan (09/17/2025 10:27 AM EDT): Will refer to [facility] to have an evaluation for a reclining wheelchair Assessment & Plan (02/18/2025 5:04 AM EDT): [...] will continue using furosemide judiciously. - patient's guide domestic tour recommended to double the dose of furosemide, [...] will continue using furosemide judiciously. - patient's guide domestic tour recommended to double the dose of furosemide, [...] effort Cerebral palsy 09/15/2012 Assessment & Plan (09/17/2025 10:29 AM EDT): -Continue Baclofen prn. -completed home PT. -completed speech therapy. -Most recent swallowing evaluation in April 2015 was reassuring for no aspiration or airway problem. Assessment & Plan (06/08/2025 6:24 PM EDT): [...] Problem Noted Date Diagnosed Date Resolved Date Cellulitis of right leg 07/29/202408/23 Assessment & Plan (09/20/2024 6:01 PM EDT): [...] whether patient needs another antibiotic). 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 03/08/2023 Osteopenia 07/16/2012 03/08/2023 Assessment & Plan (03/08/2023 6:57 PM EDT): - DEXA Encounters Date Type Department Care Team Description 10/03/[address] [address] Marisabel Michel MD Durable Medical Equipment (DME: [facility] [employer]) 10/03/[address] [address] Marisabel Michel MD Durable Medical Equipment (DME: Reclining Wheelchair) 09/08/2025 Orders Only [address] [address] Marisabel Michel MD Breast cancer screening by mammogram (Primary Dx); Other osteoporosis without current pathological fracture 09/07/2025 Refill [facility] [place] [address] Marisabel Michel MD Osteopenia, unspecified location 09/05/2025 2:15 PM EDT Office Visit [facility] [place] [address] Marisabel Michel MD Primary hypertension (Primary Dx); Prediabetes; Encounter for immunization; Venous stasis dermatitis of both lower extremities; Abnormal posture; Poor posture; Postural lordosis; Wheelchair dependence; Cerebral palsy, unspecified type (CMS/HCC) (HCC); Finger pain, right; Recurrent UTI; Primary osteoarthritis of right knee; Primary osteoarthritis of left knee; Chronic pain of right knee; Chronic right shoulder pain; FARTUN (obstructive sleep apnea); Moderate persistent asthma without complication 09/05/2025 Travel 09/04/2025 Telephone [facility] [address] [place] [address] Marisabel Michel MD chart prep 08/26/2025 Refill [facility] [address] [place] [address] Marisabel Michel MD 08/26/2025 Refill [facility] [address] [place] [address] Xiao Powers MD 08/26/2025 Refill [facility] [address] [place] [address] Clair Lombardi MD 08/23/2025 Refill [facility] [address] [place] [address] Marlyn Oliva MD from Last 3 Months Immunizations Immunization Administration [...] 6+ Bivalent 11/05/2022 Pfizer Covid-19 Vaccine 12+ 09/05/2025, 4,12/15/2023 Pneumococcal Conjugate PCV 20 12/15/2023 Pneumococcal Polysaccharide [...] Description 12/12/2025 2:15 PM EST Office Visit [facility] [address] [place] [address] Marisabel Michel MD [address] [place] [address] Health Maintenance Due Date Last Done Comments CT Colonography 1970 FIT DNA/Cologuard 1970 FIT 1970 FOBT 1970 Sigmoidoscopy 1970 Alcohol/Substance Use Screening 1982 Pap Smear 1991 HPV/Cotest 2000 RSV Patients and Patients Aged 60 years or older (1 - Risk 50-74 years 1-dose series) 2020 Mammogram 03/21/2026 03/21/2024, 01/22, 02/12/2022, Additional history exists Depression Screening 06/05/2026 06/05/2025, 06/05/20 25 Disability Screening 06/05/2026 06/05/2025 SDOH Screening 06/05/2026 06/05/2025 Colonoscopy 06/12/2026 06/12/2021 Colorectal Cancer Screening 06/12/2026 Diabetes: Hemoglobin A1C 08/28/2026 025, 04/07/2025, 08/02/2024, Additional history exists Tobacco Screening 09/17/2026 09/17/2025 Lipid Panel 04/07/2030 04/07/2025, 11/23, 07/09/2023, Additional history exists DTaP/Tdap/Td Vaccines (3 - Td or Tdap) 10/28/2031 10/28/2021, 07/09/2011, 04/01/2002 Hepatitis B Vaccines Completed 01/13/2003, 07/29/2002, 07/01/2002 [...] PM EDT) Hemoglobin A1c 6.0 <6.0 % [facility] Comment:Hemoglobin A1C Refer ence Range Adults: 4.8 - 6.0 % Non diabetic: < 6.0 % Goal: < 7.0 %Additional Action Suggested: > 8.0 %Note: Hemoglobin A1c results are invalid for patients with abnormal amounts of HbF. Blood transfusions may impact the HbA1c concentration in the patient sample. Estimated Average Glucose 126 mg/dL [facility] Comment:eAG = Estimated ave rage glucose which is %A1C expressed asaverage glucose, using the formula of the H4F-IuivwohLvqvhev Glucose study (ADAG), Diabetes Care, Vol.31,#8,Jun. 2007 Blood Venous blood specimen / Unknown 08/28/2025 4:22 PM EDT 08/28/2025 4:22 PM EDT us Marisabel Michel MD LAB BLOOD ORDERABLES Final Resul t [facility] [address] [place] [address] [phone] * (ABNORMAL) Lipid Panel with Reflex to Direct LDL (04/07/2025 3:01 PM EDT) Triglycerides 100 <150 mg/dL [facility] Comment:Desirable Triglyceri de: less than 150 mg/dLBorderline High Triglyceride 150-199 mg/dLHigh Triglyceride: 200-499 mg/dLVery High Triglyceride: greater than or equal to 5OO mg/dL Cholesterol 196 <200 mg/dL [facility] Comment:Desirable Cholestero l: less than 200 mg/dLBorderline High Cholesterol: 200-239 mg/dLHigh Cholesterol: greater than 239 mg/dL LDL Cholesterol Calculated 130(H) <100 mg/dL [facility] Comment:Desirable LDL: less than 100 mg/dLNear Optimal/Above Optimal LDL: 110- 129 mg/dLBorderline High LDL: 130-159 mg/dLHigh LDL: 160-189 mg/dLVery High LDL: greater than or equal to 190 mg/dL HDL Cholesterol 46 >40 mg/dL [facility] Comment:Desirable HDL: great er than 40 mg/dL Note: This HDL assay may give artificially low results in patients with liver disease. Blood 04/07/2025 3:01 PM EDT 04/07/2025 3:01 PM EDT Marisabel Michel MD LAB BLOOD ORDERABLES Final Resul t [facility] [address] [place] [address] [phone] * BI Mammogram Screening Tomosynthesis Bilateral (03/21/2024 1:10 PM EDT) Anatomical Region Laterality Modality Breast Bilateral Mammography 03/21/2024 1:10 PM EDT Narrative 04/17/2024 6:32 AM EDT [facility] [address] [place] [address] [place] [address] Mammography Report Signed Patient: Radha Kimball MR#: [id number] : 1970 Acct:[id number] Age/Sex: 53 / F ADM Date: 03/21/24 Loc: [facility] Attending Dr: Marisabel Michel MD Ordering Physician: Marisabel Michel MD Results: 1Negative Date of Service: 03/21/24 Follow Up: 1 Year From Orig inal Mammogram Procedure(s): MM tomosynthesis screening BI Accession Number(s): [id number] cc: Marisabel Michel MD EXAMINATION: MM SCREENING [...] in OV> 04/17/24 0629 DD/ 1310 TD/TT: Direct Entry Midwife: Procedure Note Donotuseinterpreter, Image - 04/17/2024 [facility] [address] [place] [address] Mammography Report Signed Patient: Radha Kimball#: [id number] : 1970Acct:[id number] Age/Sex: 53 / FADM Date: 03/21/24 Loc: [facility] Attending Dr: Marisabel Michel MD Ordering Physician: Marisabel Michel MDResults: 1Negative Date of Service: 03/21/24Follow Up: 1 Year From Orig inal Mammogram Procedure(s): MM tomosynthesis screening BI Accession Number(s): [id number] cc: Marisabel Michel MD EXAMINATION: MM SCREENING [...] in OV> 04/17/24 0629 DD/ 1310 TD/TT: Direct Entry Midwife: Marisabel Michel MD IMG BI PROCEDURES Final Result * Colonoscopy (06/12/2021) Colonoscopy Normal Normal George Lambert MD HEALTH MAINTENANCE Edited Result - Final from Last 3 Months or Most Recently Relevant to Health Maintenance Insurance [facility] < [address] [id number] Care Teams Electrical Technician Instructor Relationship Specialty Start Date End Date Marisabel Michel MD [address] [place] [phone] PCP - General Family Medicine 09/04/11
--- OUTSIDE RECORDS SUMMARY | 2025-11-13 20:11 | XMS_ITS | Encounter Summary ---
Author Organization [employer] Address [address] [place] [address] Care Team Providers Care Inpatient Care Manager Rn Name Role Phone Marisabel Michel MD Primary Care Provider [phone] Encounter Details Date Type Department Care Team ([facility] st Contact Info) Description 08/05/2024 Orders Only [facility] [address] [place], [place] [phone] Marisabel Michel MD [address] [place] [address] Acute right ankle pain (Primary Dx); Cellulitis [...] Office Visit [facility] [address] [place], [place] [phone] Marisabel Michel MD [address] [place] [address] Scheduled Orders Name Type Priority [...] Sedimentation Rate 56(H) 0 - 20 MM/HR [facility] Comment:Patients with polycy themia and many hemoglobin abnormalitiesmay have depressed sed rates whereas patients with anemiamay have elevated sed rates. Blood Venous blood specimen / Unknown 08/30/2024 4:50 PM EDT 08/30/2024 5:01 PM EDT us Marisabel Michel MD LAB BLOOD ORDERABLES Final Resul t [facility] [address] [place] [phone] * (ABNORMAL) Basic Metabolic Panel (08/30/2024 4:50 PM EDT) Sodium 140 135 - 145 mmol/L [facility] Potassium 3.6 3.3 - 5.1 mmol/L [facility] Chloride 104 96 - 108 mmol/L [facility] Carbon Dioxide 25 22 - 29 mmol/L [facility] Anion Gap 15 12 - 20 [facility] Urea Nitrogen (BUN) 16 9 - 16 mg/dL [facility] Creatinine, Serum 0.77 0.5 - 1.4 mg/dL [facility] Estimated Glomerular Filt Rate >60 [facility] Comment:NOTE: For -Am erican individuals, multiply the result by 1.210.Chronic Kidney Disease: Estimated GFR < 60 mL/min/1.09k7Gobuav Kidney Disease: Estimated GFR < 15 mL/min/1.73m2 Glucose 93 60 - 115 mg/dL [facility] Calcium 10.3(H) 8.4 - 10.2 mg/dL [facility] Blood Venous blood specimen / Unknown 08/30/2024 4:50 PM EDT 08/30/2024 5:01 PM EDT Marisabel Michel MD LAB BLOOD ORDERABLES Final Resul t Performing Organization Address [facility] Co de Phone Number [facility] [address] [place] [phone] * Magnesium (08/30/2024 4:50 PM EDT) Magnesium 2.3 1.6 - 2.6 mg/dL [facility] Blood Venous blood specimen / Unknown 08/30/2024 4:50 PM EDT 08/30/2024 5:01 PM EDT Marisabel Michel MD LAB BLOOD ORDERABLES Final Resul t Performing Organization Address [facility] de Phone Number [facility] [address] [place] [phone] * (ABNORMAL) Reticulocyte Count (08/30/2024 4:50 PM EDT) Reticulocytes Absolute 0.095 0.026 - 0.095 X10*6/uL [facility] Immature Retic Fraction 8.3 3.0 - 15.9 % [facility] Retic HGB Equivalent 31.7 30.0 - 35.0 pg [facility] Reticulocyte Percent 2.1(H) 0.5 - 1.8 % [facility] Blood Venous blood specimen / Unknown 08/30/2024 4:50 PM EDT 08/30/2024 5:01 PM EDT Marisabel Michel MD LAB BLOOD ORDERABLES Final Resul t Performing Organization Address [facility]/ZIP Co de Phone Number [facility] [address] [place] [phone] * (ABNORMAL) Iron And Total Iron Binding Capacity (08/30/2024 4:50 PM EDT) Iron 38 30 - 160 mcg/dL [facility] Total Iron Binding Capacity 206(L) 228 - 428 mcg/dL [facility] Percent Iron Saturation 18 15 - 50 % [facility] Unsaturated Iron Binding 168 ug/dL [facility] Blood Venous blood specimen / Unknown 08/30/2024 4:50 PM EDT 08/30/2024 5:01 PM EDT Marisabel Michel MD LAB BLOOD ORDERABLES Final Resul t Performing Organization Address [facility] de Phone Number [facility] [address] [place] [phone] * (ABNORMAL) Ferritin (08/30/2024 4:50 PM EDT) Ferritin 283(H) 10 - 250 ng/mL [facility] Blood Venous blood specimen / Unknown 08/30/2024 4:50 PM EDT 08/30/2024 5:01 PM EDT Marisabel Michel MD LAB BLOOD ORDERABLES Final Resul t Performing Organization Address [facility] Co de Phone Number [facility] [address] [place] [phone] * (ABNORMAL) C-reactive Protein (08/30/2024 4:50 PM EDT) C Reactive Protein 1.83(H) < or = 0.50 mg/dL [facility] Blood Venous blood specimen / Unknown 08/30/2024 4:50 PM EDT 08/30/2024 5:01 PM EDT us Marisabel Michel MD LAB BLOOD ORDERABLES Final Resul t [facility] [address] [place], [place] [phone] * (ABNORMAL) CBC auto differential (08/30/2024 4:50 PM EDT) White Blood Count 9.6 4.8 - 10.8 X10*3/uL [facility] Red Blood Count 4.49 4.20 - 5.50 X10*6/uL [facility] Hemoglobin 12.8 12.0 - 16.0 g/dl [facility] Hematocrit 39.2 37.0 - 47.0 % [facility] Mean Corpuscular Volume 87.3 80.0 - 98.0 fL [facility] Mean Corpuscular Hemoglobin 28.5 27.0 - 33.0 pg [facility] Mean Corpuscular HGB Conc 32.7 31.0 - 35.0 g/dl [facility] Red Cell Distribution Width 13.5 11.0 - 16.0 % [facility] Platelet Count 248 160 - 400 X10*3/uL [facility] Mean Platelet Volume 11.9 9.4 - 12.3 fL [facility] Neutrophils Percent Auto 70.8 45 - 73 % [facility] Imm Gran Pct Auto 0.8(H) 0.0 - 0.4 % [facility] Lymphocytes Percent Auto 17.2(L) 20 - 40 % [facility] Monocytes Percent Auto 6.7 2 - 11 % [facility] Eosinophils Percent Auto 4.0 0 - 4 % [facility] Basophils Percent Auto 0.5 0 - 2 % [facility] NRBC Pct Auto 0.0 0.0 - 0.2 /100WBC [facility] Neutrophils Absolute Auto 6.8 2.0 - 8.3 x10*3/uL [facility] Imm Gran Abs Auto 0.08(H) 0.00 - 0.03 X10*3/uL [facility] Lymphocytes Absolute Auto 1.7 1.2 - 4.9 X10*3/uL [facility] Monocytes Absolute Auto 0.6 0.1 - 1.2 X10*3/uL [facility] Eosinophils Absolute Auto 0.4 0.0 - 0.4 X10*3/uL [facility] Basophils Absolute Auto 0.1 0.0 - 0.2 X10*3/uL [facility] NRBC Abs Auto 0.000 0.0 - 0.012 X10*3/uL [facility] Blood Venous blood specimen / Unknown 08/30/2024 4:50 PM EDT 08/30/2024 5:01 PM EDT us Marisabel Michel MD LAB BLOOD ORDERABLES Final Resul t [facility] [address] [place] [phone] documented in this encounter Visit Diagnoses Diagnosis Acute right ankle pain- Primary Cellulitis of right lower leg Anemia, unspecified type Hypokalemia Hypopotassemia documented in this encounter Additional Health Concerns Assessment Noted Time PHQ-9 Depression Total Score: 0 03/29/20 24 3:23 PM EDT documented as of this encounter Care Teams Inpatient Care Manager Rn Relationship Specialty Start Date End Date Marisabel Michel MD [address] [place] [phone] PCP - General Family Medicine 09/04/11 documented as of this encounter
--- OUTSIDE RECORDS SUMMARY | 2025-11-13 20:11 | XMS_ITS | Encounter Summary ---
Author Organization [employer] Address [address] [facility] [address] [place] [address] Care Team Providers Care Entertainment Director Name Role Phone Marisabel Michel MD Primary Care Provider [phone] Reason for Visit * Reason Comments Med Refill Encounter Details Date Type Department Care Team ([facility] st Contact Info) Description 12/11/2024 Refill [facility] [address] [place], [place] [phone] Marisabel Michel MD [address] [place], [place] [phone] Social History Tobacco Use Types Packs/Day Years [...] Description 12/12/2025 2:15 PM EST Office Visit [facility] [address] [place] [phone] Marisabel Michel MD [address] [place] [phone] documented as of this encounter Visit Diagnoses Not on filedocumented in this encounter Additional Health Concerns Assessment Noted Time PHQ-9 Depression Total Score: 0 03/29/20 24 3:23 PM EDT documented as of this encounter Care Teams Entertainment Director Relationship Specialty Start Date End Date Marisabel Michel MD [address] [place] [phone] PCP - General Family Medicine 09/04/11 documented as of this encounter
--- OUTSIDE RECORDS SUMMARY | 2025-11-13 20:11 | XMS_ITS | Encounter Summary ---
Author Organization [employer] Address [address] [facility] [address] [place] [address] Care Team Providers Care Cardiac Catheterization Technologist Name Role Phone Marisabel Michel MD Primary Care Provider [phone] Reason for Referral * Consultation (Urgent) - Closed Specialty Diagnoses / Procedures Referred By Contac t Referred To Contact Diagnoses Cellulitis of right lower leg Pain in right lower leg Marisabel Michel MD [address] [place] [address] Phone: tel: fax: Ester Palm MD [address] [facility] [address] [place] [address] Phone: tel: Referral ID Status Reason Start Date Expiration Date V isits Requested Visits Authorized [id number] Closed Specialty Services Required 08/29/2024 08/29/2025 1 1 Encounter Details Date Type Department Care Team (Late st Contact Info) Description 08/29/2024 Orders Only [facility] [address] [place], [place] [phone] Marisabel Michel MD [address] [place], [place] [phone] Cellulitis of right lower leg (Primary Dx); [...] Description 12/12/2025 2:15 PM EST Office Visit [facility] [address] [place] [address] Marisabel Michel MD [address] [place] [address] Scheduled Referrals Name Type Priority Associated Diagnoses [...] documented as of this encounter Care Teams Cardiac Catheterization Technologist Relationship Specialty Start Date End Date Marisabel Michel MD [address] [place] [address] PCP - General Family Medicine 09/04/11 documented as of this encounter
--- OUTSIDE RECORDS SUMMARY | 2025-11-13 20:12 | XMS_ITS | Data Portability ---
Author Organization [employer] [facility], [facility] Address [address] [place] [address] Care Team Providers Care Digital Director Name Role Phone HIM CCA OTHER DENA KAN Primary Care Provider Assessment Encounter Date Assessment Date Assessment LastModified by Organization Details LastModified Time 03/16/2025 03/16/2025 I provided real -time medical direction via phone for this encounter and was available for additional phone-based assistance as needed. I have reviewed and agree with the Assessment and Plan as documented by the Nursing Services Manager. Patient given the opportunity to ask questions. Our service contacted for an assessment of: Hematuria and back pain radiating to the right flank. As per above, patient with approximately 24 hours of Abdominal and back pain radiating to the right flank. Denies dysuria, frequency. does have a history of UTIs. Denies fever, chills . Per wafer fab operator on the scene, Vital signs are stable [...] assessment and plan as documented by the wafer fab operator. I provided real-time medical direction for [...] assessment and plan as documented by the wafer fab operator. I provided real-time medical direction for this encounter and was immediately available to provide additional phone-based assistance as needed. HPI: 54F presenting with urinary symptoms x 1 day, hx of previous UTIs. No fever no abdominal pain.Allergy to Bactrim. Current symptoms is incontinence. O/E: Vitals at her baseline, no fever. Exam otherwise unremarkable per the wafer fab operator UA positive for leuks/nitrites Impression/Plan: Suspect UTI, [...] other concerns. paysola Not available 06/13/2025 19:45:50 11/08/2025 11/08/2025 Mrs. Vera was evaluated for [...] Assessment and Plan as documented by the Nursing Services Manager. We discussed the diagnostic uncertainty of home [...] None recorded. Lab culture, urine 2024 025 [place] [facility] (Centralized Electronic Ordering - All Locations), Patient Can Go To The Location Of Their Choice, [address] 08:08:44 urinalysis, dipstick [address] [facility], [address] [place] [address], [id number] 21:38:39 urinalysis, dipstick [address] [facility], [address] [place] [address], [id number] 20:04:42 culture, urine 2024 025 [place] [facility] (Centralized Electronic Ordering - All Locations), Patient Can Go To The Location Of Their Choice, [id number] 5 20:06:02 rapid SARS CoV 2 Ag, QL IA, respiratory specimen 2024 025 [facility], [address] [place] [address], [id number] 5 20:22:13 rapid flu (A+B) 2024 025 [facility], [address] [place] [address], [id number] 5 20:22:27 rapid strep group A, throat 2024 025 [facility], [address] [place] [address], [id number] 20:22:43 urinalysis, dipstick 2024 025 [facility], [address] [place] [address], [id number] 21:03:36 culture, urine 2024 025 [place] [facility] (Centralized Electronic Ordering - All Locations), Patient Can Go To The Location Of Their Choice, [address] 12:07:57 Referral None recorded. Procedures None recorded. Surgeries None recorded. Imaging None recorded. Medication Orders cephalexin 500 mg capsule [address]/Pharmacy #2071, [address] [place], [address], 19:05:50 cefadroxil 500 mg capsule 2024 025 [facility]/Pharmacy #2071, [address] [place], [address], 5 19:06:11 nitrofurant oin macrocrysta l 100 mg capsule 2024 025 [facility]/Pharmacy #2071, [address] [place], [address], 19:45:55 Macrobid 100 mg capsule 2024 025 [facility] [address] [place], [address], 5 22:11:52 ipratropium 0.5 mg-albutero l 3 mg (2.5 mg base)/3 mL nebulizatio n soln 2024 025 [facility] [address] [place] [address], [address], 5 20:06:10 albuterol sulfate 2.5 mg/3 mL (0.083 %) solution for nebulizatio n 2024 025 [facility] [address] [place] [address], [address], 5 20:06:11 ipratropium 0.5 mg-albutero l 3 mg (2.5 mg base)/3 mL nebulizatio n soln 2024 025 [facility] [address] [place] [address], [address], 5 20:06:10 prednisone 10 mg tablet 2024 025 [facility]/Pharmacy #2071, [address] [place], [address], 5 20:08:18 levofloxaci n 500 mg tablet 2024 025 [facility]/Pharmacy #2071, [address] [place], [address], 5 19:07:37 levofloxaci n 500 mg tablet 2024 025 [email or web address]/Pharmacy #2071, [address] [place], [address], 19:07:36 Patient TargetsNo targets recorded. Patient InstructionsNo instructions recorded. Reason for Referral None Reported. Results Created Date Observation Date Name Description Value Unit Range Abnormal Flag Note LastModifiedBy Organization Detail LastModifiedTime 06/26/2006/28/2024 URINE CULTU RE, ROUTI NE urine culture, routine Final report Not Available [facility] ([facility]) [address] [place], [address], 06/28/2024 08:08:50 06/26/20 24 06/28/2024 URINE CULTU RE, ROUTI NE result 1 COMMEN T Mixed uroge nital rimma 50,00 0-100 ,000 colon y formi ng units per mL Not Available [facility] ([facility]) [address] [place], [address], 06/28/2024 08:08:50 03/16/2003/20/2025 URINE CULTU RE, ROUTI NE urine culture, routine Final report abnormal Not Available [facility] ([facility]) [address] [place], [address], 03/20/2025 14:07:03 03/16/2003/20/2025 URINE CULTU RE, ROUTI NE result 1 Escher ichia coli abnormal Cefaz hria with an SRIRAM <=16 predi cts susce [...] ng units per mL Not Available [facility] ([facility]) [address] [place], [address], 03/20/2025 14:07:03 03/16/20 25 03/20/2025 URINE CULTU [...] ng units per mL Not Available [facility] ([facility]) [address] [facility], [place], [address], 03/20/2025 14:07:03 03/16/2003/20/2025 URINE CULTU RE, ROUTI NE antimicrobia l [...] im/Spicer lfa S S Not Available [facility] ([facility]) [address] [facility], [place], [address], 03/20/2025 14:07:03 06/13/20 25 06/17/2025 URINE CULTU RE, UROLO GY ROSLYN P urine culture, urology workup Final report abnormal Not Available [facility] ([facility]) [address] [facility], [place], [address], 06/17/2025 08:06:42 06/13/2006/17/2025 URINE CULTU RE, UROLO [...] formi ng units per mL Not Available [facility] ([facility]) [address] [place], [address], 06/17/2025 08:06:42 06/13/2006/17/2025 URINE CULTU RE, UROLO [...] ng units per mL Not Available [facility] ([facility]) [address] [place], [address], 06/17/2025 08:06:42 06/13/2006/17/2025 URINE CULTU RE, UROLO [...] im/Spicer lfa S S Not Available [facility] ([facility]) [address] [facility], [place], [address], 06/17/2025 08:06:42 11/08/2011/10/2025 URINE CULTU RE, ROUTI NE urine culture, routine Final report Not Available [facility] ([facility]) [address] [place], [address], 11/10/2025 08:08:44 11/08/2011/10/2025 URINE CULTU RE, ROUTI NE result 1 COMMEN T Mixed uroge nital rimma 10,00 0-25, 000 colon y formi ng units per mL Not Available [facility] ([facility]) [address] [facility], [place], [address], 11/10/2025 08:08:44 Result Notes None recorded. Problems Name Problem SNOMED Code Status Onset Date Resolution Date Notes Provider Name and Address Organization Details Recorded Time Asthma 911707379 Active 025 Chhaya Lovett MD [address] [place] [address],[address] [place] [address], [place], [address] , [facility] - [employer], [employer] 03/26/2025 20:06:52 Problem Notes None recorded. Medical Equipment None Reported. Allergies Allergen ID Allergen Name Allergen Category Reaction Reaction Severity Criticality Documentation Date Start Date Code Code System Note Provider Name and Address Organization Details Recorded Time 1866 Bactrim medicatio n Not available Not available Not available 01/02/2023 64028 9 RxNorm Not Available [employer] - [employer] 17:39:26 1868 Symbicort medicatio n Not available Not available Not available 01/02/2023 01619 8 RxNorm Not Available [facility] [employer] 17:39:26 66009 budesonid e medicatio n Not available Not available high 11/08/20252013 54899 RxNorm Other react ion(s ): Alter ed Heart Rate Other React ion(s ): TREMO R Not Available [employer] - prod 19:27:09 10531 formotero l Not available Not available Not available high 11/08/20252013 16647 RxNorm Other react ion(s ): Alter ed Heart Rate Other React ion(s ): TREMO R Not Available [employer] - prod 19:27:09 15676 oxybutyni n medicatio n Not available Not available Not available 11/08/20252015 47490 RxNorm Not Available [employer] - prod 19:27:09 09735 sulfameth oxazole medicatio n Not available Not available high 11/08/20252016 14578 RxNorm Other react ion(s ): Fever , rash Not Available [employer] - prod 19:27:09 63101 sulfameth oxazole / trimethop rim medicatio n Not available Not available Not available 11/08/20252023 41181 RxNorm unrec ogniz ed react ion (text : Unkno wn, code: [id number]) (from [facility]) Not Available [employer] - prod 19:27:09 08936 topiramat e medicatio n Not available Not available high 11/08/20252015 15073 RxNorm Not Available [employer] - prod 19:27:09 07674 trimethop rim medicatio n rash Not available high 11/08/20252016 92724 RxNorm Other react ion(s ): Fever , rash Not Available [employer] - prod 19:27:09 75432 budesonid e / formotero l medicatio n Not available Not available Not available 11/08/2025 31227 2 RxNorm Not Available [facility] [employer] - prod 19:27:13 Medications Name Sig Start Date Stop [...] Vitals Date Recorded Body temperature Oxygen saturation Respiratory rate Heart rate Systolic And Diastolic Provider Name and Address Organization Details Last Updated DateTime 5 97.6 [degF] 95 % 18 /min 61 /min 134/78 mm[Hg] Not Available [employer] 5 19:04:46 Date Recorded Heart rate Oxygen saturation Body weight Body temperature Respiratory rate Body height Systolic And Diastolic Provider Name and Address Organization Details Last Updated DateTime 5 69 /min 94 % 6803.88 g 98.1 [degF] 16 /min 160.02 cm 140/85 mm[Hg] Not Available [employer] 5 20:01:40 Date Recorded Oxygen saturation Heart rate Respiratory rate Body temperature Systolic And Diastolic Provider Name and Address Organization Details Last Updated DateTime 5 99 % 79 /min 16 /min 98.2 [degF] 148/90 mm[Hg] Not Available [employer] 5 19:10:15 Date Recorded Heart rate Body temperature Respiratory rate Oxygen saturation Systolic And Diastolic Provider Name and Address Organization Details Last Updated DateTime 4 90 /min 97.6 [degF] 16 /min 96 % 90/63 mm[Hg] Not Available [employer] 4 18:31:49 Date Recorded Body temperature Oxygen saturation Heart rate Respiratory rate Systolic And Diastolic Provider Name and Address Organization Details Last Updated DateTime 5 97.7 [degF] 100 % 92 /min 18 /min 128/76 mm[Hg] Not Available [employer] 5 19:02:47 Social History None recorded. Functional Status None recorded. Mental Status None recorded. Family History Nothing Reported. Medical History No medical history recorded. Gynecological HistoryNo gynecological history recorded. Obstetrics History GPAL:G 0 P 0 0 0 0 Past Encounters Encounter ID Performer Location Encounter Start Date Encounter Closed Date Diagnosis/Indication Diagnosis SNOMED-CT Code Diagnosis ICD10 Code Diagnosis IMO Codes Diagnosis Note [id number] Marilee Boo MD [facility] - [address] [id number] 04/26/2022 12:48:38 07/22/2022 11:34:29 Acute urinary tract infection 332647327 N39.0 51 year old female being evaluated for 2 days of dysuria and bilateral flank pain. Per data gathered by wafer fab operator, patient with normal vital signs, able to tolerate PO, with positive urine dip. Reports last UTI was 3 months ago, felt the same as current symptoms, and was treated with ciprofloxa sam.Will send urine for culture, and empiricall y treat as uncomplica micki with Cipro 250 mg BID x 3 days. [id number] Megan Willard MD [facility] - [address] [address] 08/23/2022 15:32:23 08/25/2022 14:41:53 COVID-19 433701559 U07.1 COVID (+). mild tachypnea and cough +wheeze. no increased WOB. prescribed paxlovid, deferring oral steroids given unclear benefit in context of covid. recommende d continued adherence to maintenanc e inhalers. [id number] Kenan Hart MD [facility] - [address] [address] 12/31/2022 11:46:11 01/02/2023 10:01:19 Increased frequency of urination 138780367 R35.0 This 52-year-ol d female called her PCP today complainin g of dysuria, urinary frequency, back and pelvic pain for several days. Her PCP requested visit by Leslye. She has a history of a neurogenic bladder and frequent UTIs. Her U/A was negative. I ordered a U/C to be sent to [facility]. She will follow-up with her PCP. The patient agreed with this plan. [id number] Froy Chaves MD [facility] - [address] [id number] 01/13/2023 18:35:24 01/15/2023 16:38:46 Pruritus of vagina 77972673 L29.3 Reports that [facility] She [...] [id number] Neisha Mario MD [facility] [address] [place], [place] [address] 02/04/2023 20:31:29 02/06/2023 11:05:02 Respiratory tract congestion and cough [id number] R05.9 [id number] Geena Slater MD [facility] [address] [place], [place] [phone] 02/12/2023 16:08:06 02/16/2023 12:55:21 Cellulitis of lower limb 192531109 L03.119 right lower leg s/p animal scratch [...] to call for re eval at once. [id number] Chhaya Lovett MD [facility] [address] [place] [phone] 04/20/2023 16:36:23 04/21/2023 12:00:18 Cellulitis [id number] L03.90 [id number] SANDRA BROUSSARD MD [facility] [address] [place] [id number] 06/24/2023 15:28:26 06/25/2023 12:16:09 Candidal vulvovaginitis 59873494 B37.31 [id number] Froy Chaves MD [facility] [address] [place] [id number] 08/21/2023 17:13:09 08/22/2023 11:34:46 Acute cystitis 58572254 N30.01 Patient reports urinary frequency, burning, and urgency consistent with her typical UTI symptoms. No history of MDR infections in the past. No systemic signs/symp toms to suggest sepsis. Plan for empiric treatment and outpatient follow-up as needed. [id number] Froy Chaves MD [facility] [address] [place] [id number] 10/12/2023 19:23:25 10/13/2023 10:50:43 Cellulitis of lower limb 066120968 L03.119 Patient reports being scratched (NOT bitten) by the dog, now with some surroundin g erythema. Notably does have some venous stasis changes bilaterall y but with some worsened edema. Given risk of progressio n, will treat empiricall y for cellulitis . Advised close PCP follow-up for wound check. [id number] Hang Olsen MD [facility] [address] [place] [phone] 06/26/2024 19:11:26 06/26/2024 22:29:47 Acute urinary tract infection 963726901 N39.0 fever since 06/22, no features of sepsis at this time. Will plan for 5 day treatment w levaquin. [id number] Froy Chaves MD [facility] [address] [place] [phone] 07/12/2024 18:48:44 07/12/2024 21:13:42 Cellulitis of right lower limb [id number] 4624468 L03.115 Patient with a history of cellulitis presenting with similar. Slight tachycardi a and low grade temperatur e is concerning for developing infection. Given systemic symptoms, will treat with a dose of ceftriaxon e while awaiting rx from pharmacy. Reviewed return precaution s and discussed low threshold to go to ED if symptoms worsen given potential for sepsis. [id number] Marilee Boo MD [facility] [address] [place] [id number] 07/18/2024 18:31:36 07/18/2024 23:37:59 Cellulitis of lower limb 139016816 L03.119 53 year old female being evaluated [...] assessment and plan as documented by the wafer fab operator. I provided real-time medical direction for this encounter and was immediatel y available to provide additional phone-base d assistance as needed. We discussed the diagnostic uncertaint y of home visits and associated risks. We discussed the need to seek care urgently/e mergently in the setting of any new or worsening symptoms. [id number] Neisha Mario MD [facility] - [address] [address] 03/16/2025 19:04:42 03/16/2025 20:50:47 Urinary symptoms [id number] R39.9 [id number] Chhaya Lovett MD [facility] - [address] [phone] 03/26/2025 20:01:36 03/27/2025 00:17:21 Acute COVID-19 8088380624 U07.3 [id number] Asthma [id number] J45.90 [id number] Chhaya Lovett MD [facility] [address] [address] 06/13/2025 19:10:12 06/13/2025 19:48:08 Urinary symptoms [id number] R39.9 [id number] RAJ KIRBY MD [facility] [address] [phone] 11/08/2025 19:02:43 11/09/2025 00:53:35 Urinary system finding 531710405 R39.9 [id number] Health Concerns Section Related Observation LastModified by Organization Detai ls LastModified Time None Recorded Concern Status LastModified by Organization Details LastModified Time None Recorded Advance Directives Directive None Recorded Payers Insurance Date Sequence Insurance Name Policy Number Policy Cabrera Covered Member ID Cabrera Member ID Guarantor Name 03/16/2025 1 [facility] - DOS PRIOR TO 2023 - DUAL ELIGIBLE (MEDICARE REPLACEMENT/ADV ANTAGE - HMO) Radha Chuy [id number] Radha Chuy 11/08/2025 1 [facility] - DOS ON OR AFTER 2023 - DUAL ELIGIBLE - FDC OPTIONS AND ONE CARE (MEDICARE REPLACEMENT/ADV ANTAGE - HMO) Radha Chuy [id number] Radha Vera Notes Date Note Type Note Provider Name and Address Organization Details Recorded Time 07/18/2024 text/html HPI: Call returned to Radha [...] since then. Advised of disposition, agrees to [facility] referral for re-assessment and POCT blood work ................... ................... ................... ................... ................... ................... ................... ........ [facility] Nurse Triage Notes (Nydia Tee): Chief Complaints: Cellulitis PMH: Neurologic (E.G. ALS/MS), COPD/Asthma, Hypertension Allergies: Trimethoprim-Sulfam ethoxazole Other Allergies: Budesonide, formeterol, topiramate, oxybutynin Comments: [facility] RN did not require any additional information to process this visit. ................... ................... ................... ................... ................... ................... ................... ........ Nursing Services Manager Note From Trae Song: I visited Ms [...] pitting edema. 911 initiated for transport to [place] ED. SBAR to [facility]. ................... ................... ................... ................... ................... ................... ................... ........ Disposition: Fulfilled Marilee Boo MD [address] [facility],[address], [place], [address], [email or web address] 07/18/2024 21:34:52 03/16/2025 text/html [facility] Nurse Triage [...] COPD/Asthma, Hypertension, Kidney Stones PMH Reviewed at 03/16/2025:39 Allergies Reviewed at 03/16/2025:39 Comments: 54 y.o [...] signs of when to seek emergency care. Nursing Services Manager Organization Information for Shalom Tineo Business Legal Name: [employer]. Address: [address] [place] [address], Commercial Teller: Bret Champange MD CLIA No.: [id number] Nursing Services Manager POC Test Results from Shalom Tineo Urine [...] ................... ................... ................... ................... ................... ................... ........ Nursing Services Manager Note From Shalom Tineo: SC8 dispatched to address listed above for report of a female alliance party with UTI symptoms. Arrival on scene, patient was found inside with transistor tester seated in wheel chair, alert and oriented x4, patent airway, breathing non labored speaking in complete sentences, skin WPD in no immediate distress. +/= Chest rise. -SOB, -CP, -NVD, -Trauma, -Fever. GCS 15. Abdomen soft but tender on palpation, right sided CVA tenderness present. Merchandising Representative reports that the patient has been having a constant diffuse abdominal pain radiating to the right flank since about Thursday. Merchandising Representative also reports blood present in diaper but unsure of where the blood came from, reports blood subsided yesterday. Merchandising Representative reports patient has history of both UTI and Kidney stones, last one of each being over a year ago. Merchandising Representative reports no recent trauma, fever, chills, SOB, CP, NVD. Merchandising Representative denies any urinary symptoms that were consistent with last UTI but would still like patient to be tested for one. Merchandising Representative reports normal food/fluid intake along with medication compliance. Patient vital signs obtained as noted. Patient able to provide urine sample via clean catch, urine culture obtained for lab sheila send out followed by urine dipstick as noted. [facility] consulted, advised she would send prescription for Levofloxacin for patient to take and provided orders to [facility] for 500mg Levofloxacin PO. Levofloxacin 500mg PO administered to patient without incident, six patient rights verified prior. Red flags discussed with patient and transistor tester, advised to call back if patient condition worsens. [facility] Clear. [facility] Lab Orders: urinalysis, dipstick: Performed culture, urine: Performed [facility] Medication Orders: levofloxacin 500 mg tablet: Administered ................... ................... ................... ................... ................... ................... ................... ........ [facility] Consulted: Neisha Mario ................... ................... ................... ................... ................... ................... ................... ........ Disposition: Fulfilled Neisha Mario MD [address] [place] [address],[address], [place], [address], [email or web address] 03/16/2025 20:40:28 03/26/2025 text/html [facility] Nurse Triage [...] 03/26/2025 - 15:14 Allergies Reviewed at 03/26/2025 - 15:14 Comments: 54 y.o female complains of [...] signs of when to seek emergency care. Nursing Services Manager Organization Information for Sandra Reyes Business Legal Name: [employer]. Address: [address] [place] [address], Commercial Teller: Bret COTE No.: [id number] Nursing Services Manager POC Test Results from Sandra Reyes Rapid COVID antigen (18:42:22) COVID: + Attachments uploaded as part of this test result can be found under Documents section. Rapid influenza antigen (18:42:23) Flu: - Rapid strep test (18:42:24) Strep: - ................... ................... ................... ................... ................... ................... ................... ........ Nursing Services Manager Note From Sandra Reyes: [facility] makes pt contact. She is wearing a mask and sitting in her walker in the kitchen of the home where she lives w/ family. She is alert and tracking and smiling at [facility]. Pt is generally well-appearing and not [...] but it has been many years . [facility] swabs pt for COVID/flu and strep [...] is noted and no changes are reported. [facility] contacts [facility] and discusses the above. [facility] recommends pt continue w/ supportive care and orders [facility] to administer a duoneb. [facility] administers one duoneb at 8 lpm O2 via nebulizer mask. Pt tolerates treatment well and lung sounds improve and are clear to auscultation bilaterally. She is informed of s/s which require emergency care. [facility] prescribes a 5 day course of prednisone for the pt w/ the instructions to start them tomorrow if she is still feeling the same as she does today. Pt states her verbal understanding of the instructions. [facility] is clear. Report completed by JAMES Reyes [id number]. [facility] Lab Orders: rapid SARS CoV 2 Ag, QL IA, respiratory specimen: Performed rapid flu (A+B): Performed rapid strep group A, throat: Performed [facility] Medication Orders: ipratropium 0.5 mg-albuterol 3 mg (2.5 mg base)/3 mL nebulization soln: Administered albuterol sulfate 2.5 mg/3 mL (0.083 %) solution for nebulization: Administered ipratropium 0.5 mg-albuterol 3 mg (2.5 mg base)/3 mL nebulization soln: Administered ................... ................... ................... ................... ................... ................... ................... ........ [facility] Consulted: Chhaya Lovett ................... ................... ................... ................... ................... ................... ................... ........ Disposition: Christal Chhaya Lovett MD [address] [place] [address],[address], [place], [address], [email or web address] 03/26/2025 20:31:21 06/13/2025 text/html CRC Nurse Triage [...] Kidney Stones, Sleep Apnea PMH Reviewed at 06/13/2025 - 17:50 Allergies Reviewed at 06/13/2025 - 17:50 Comments: 54 y.o female complains of High Blood Pressure, Headache, Urinary Symptoms Ciarra calling on behalf of Radha NolascoLuis Antonio Suspecting UTI with urinary frequency. Up several [...] signs of when to seek emergency care. Nursing Services Manager Organization Information for Franco Huff Business Legal Name: [employer]. Address: [address] [place] [id number], Commercial Teller: Bert COTE No.: [id number] Nursing Services Manager POC Test Results from Farnco Huff Urine Dipstick (18:31:10) Urine leukocytes: 15+CESAR Urine nitrites: +NIT Urine urobilinogen: -URO Urine protein: -PRO Urine pH: 5pH Urine blood: +BLO Urine specific gravity: 1.000SG Urine ketones: +KET Urine bilirubin: -REYNALDO Urine glucose: -GLU ................... ................... ................... ................... ................... ................... ................... ........ Nursing Services Manager Note From Franco Huff: Dispatched to the [...] assessed. Urine sample obtained for lab, UA. [facility] consulted. Pt given 100mg PO Nitrofurantoin. Script called into preferred pharmacy. Red flags discussed. ALL times are approx. ................... ................... ................... ................... ................... ................... ................... ........ [facility] Consulted: Chhaya Lovett ................... ................... ................... ................... ................... ................... ................... ........ Disposition: Christal Lovett MD [address] [place] [address],[address], [place], [phone] [email or web address] 06/13/2025 22:12:02 11/08/2025 text/html ROS as noted in the [facility] CRC Nurse Triage Notes (She Huizar): [...] signs of when to seek emergency care. Nursing Services Manager Organization Information for Danyel Hancock [employer] Legal Name: [employer]. Address: [address] [place] [address], Commercial Teller: Bret Champagne MD [place] No.: [id number] Nursing Services Manager POC Test Results from Danyel Hancock Urine Dipstick (19:00:38) Urine leukocytes: 15+-CESAR Urine nitrites: -NIT Urine urobilinogen: 0.2 3.5URO Urine protein: 15 +- 0.15PRO Urine pH: 5.0pH Urine blood: -BLO Urine specific gravity: 1.015SG Urine ketones: 5 +- 0.5KET Urine bilirubin: 1 + 17BIL Urine glucose: -GLU Attachments uploaded as part of this test result can be found under Documents section. ................... ................... ................... ................... ................... ................... ................... ........ Nursing Services Manager Note From Danyel Hancock: Encountered patient seated upright and conscious in wheelchair, with family present. Patient reports approximately three days of an increase in urinary frequency as well as lower abdominal and flank pain. Patient denies chest pain, shortness of breath and fevers. POCT urinalysis dip performed, values uploaded via [employer]; culture retrieved for [facility] delivery. Skin warm, dry and of appropriate color for ethnicity. Head and neck, free of trauma and edema. JVD. Breath sounds present, clear and equal bilaterally. Abdomen is soft, non-tender and non-distended. Extremities are free of trauma and edema. [facility] Contacted: 500mg PO Keflex was administered after medication r ights were reconciled with patient. [facility] states they will send a prescription for further treatment to a pharmacy of patient s choice. Patient was encouraged to monitor herself for worsening symptoms, chest pain, shortness of breath or fevers and was encouraged to seek further medical attention, including 911 if said symptoms are to develop. Patient verbalizes understanding of the plan and states she is comfortable remaining home this evening. [facility] Lab Orders: culture, urine: Performed urinalysis, dipstick: Performed [facility] Medication Orders: cephalexin 500 mg capsule: Administered ................... ................... ................... ................... ................... ................... ................... ........ [facility] Consulted: Raj Kirby ................... ................... ................... ................... ................... ................... ................... ........ Disposition: Fulfilled RAJ KIRBY MD [address] [facility],[address] [facility], [place], [address], [place] - [employer] 11/08/2025 21:31:02 OBGyn Episode No OBEpisode recorded.
[2025-11-13 20:51] LABS: Appearance Urine Clear; Glucose Urine UA Negative (Negative); PH 6.5 (5.0-9.0); Specific Gravity - Urine 1.015 (1.005-1.025)
--- NOTE | 2025-11-13 21:50 | PC.NURSE ---
pt difficult stick awaiting provider for ultra sound IV, pt reposition and pillow placed bilateral legs.
--- NOTE | 2025-11-13 21:53 | PC.NURSE ---
pt change into hospital attire, pure wick in place.
[2025-11-13 22:00] VITALS: BP 150/73; PULSE 93; TEMP 37.2; O2SAT 98
[2025-11-13 22:29] LABS: MANUAL DIFF FLAG NO
[2025-11-13 22:30] LABS: Hematocrit 38.3 % (37.0-47.0); Hemoglobin 12.4 g/dl (12.0-16.0); Imm Gran Abs Auto 0.02 X10*3/uL (0.00-0.03); Imm Gran Pct Auto 0.3 % (0.0-0.4); Lymphocytes Absolute Auto 1.0 X10*3/uL (1.2-4.9); Mean Corpuscular HGB Conc 32.4 g/dl (31.0-35.0); Mean Corpuscular Hemoglobin 27.9 pg (27.0-33.0); Mean Corpuscular Volume 86.3 fL (80.0-98.0); NRBC Abs Auto 0.000 X10*3/uL (0.0-0.012); NRBC Pct Auto 0.0 /100WBC (0.0-0.2); Platelet Count 251 X10*3/uL (160-400); Red Blood Count 4.44 X10*6/uL (4.20-5.50); White Blood Count 6.1 X10*3/uL (4.8-10.8)
[2025-11-13 22:53] LABS: Alanine Aminotransferase 33 U/L (0-31); Albumin Level 4.5 g/dL (3.5-5.0); Alkaline Phosphatase 73 U/L (39-117); Anion Gap 14 (12-20); Aspartate Amino Transferase 37 U/L (5-31); Blood Urea Nitrogen 14 mg/dL (9-16); Calcium 10.0 mg/dL (8.4-10.2); Carbon Dioxide 26 mmol/L (22-29); Chloride 104 mmol/L (96-108); Creatinine Clr Calc Pharmacy 96.3; Estimated Glomerular Filt Rate > 60; Lipase 11 U/L (8-78); Potassium 5.0 mmol/L (3.3-5.1); Sodium 139 mmol/L (135-145); Total Protein 7.6 g/dL (6.5-8.0)
--- NOTE | 2025-11-13 23:22 | ED.GENADULT ---
HPI - General Adult General Chief complaint: Back Pain/Injury Stated complaint: low back pain Time Seen by Provider: 11/13/25 22:00 Source: patient, RN notes reviewed and old records reviewed Mode of arrival: EMS Limitations: no limitations History of Present Illness ED Provider: Dre HPI narrative: 54-year-old female with a past medical history significant for cerebral palsy and wheelchair-bound, asthma presents for evaluation of lower back pain. Patient reports lower back pain yesterday without injury Denies any numbness, tingling. Denies any fevers, chills or burning with urination pain She has a history of kidney stones and UTIs No abdominal pain Related Data Home Medications ?Medication ?Instructions ?Recorded ?Confirmed ascorbic acid (vitamin C) 500 mg 500 mg PO DAILY 03/21/21 07/28/25 tablet ciclopirox 0.77 % topical cream 1 appl topical BEDTIME 03/21/21 07/28/25 diclofenac sodium 1 % topical gel 1 g topical DAILY PRN Pain 03/21/21 07/28/25 docusate sodium 100 mg capsule 100 mg PO BID 03/21/21 07/28/25 ferrous sulfate 325 mg (65 mg 325 mg PO DAILY 03/21/21 07/28/25 iron) tablet naproxen 375 mg tablet 375 mg PO DAILY 03/21/21 07/28/25 omeprazole 20 mg capsule,delayed 20 mg PO BID@0630,1630 03/21/21 07/28/25 release alendronate 70 mg tablet 70 mg PO TH 04/04/22 07/28/25 amitriptyline 10 mg tablet 10 mg PO BEDTIME 04/04/22 07/28/25 triamcinolone acetonide 0.1 % 1 appl topical BID PRN Redness 04/04/22 07/28/25 topical ointment furosemide 40 mg tablet 40 mg PO DAILY 07/18/24 07/28/25 albuterol sulfate 90 mcg/actuation 1 inh inhalation QID 09/14/24 07/28/25 aerosol inhaler ammonium lactate 12 % topical cream 1 appl topical DAILY 09/14/24 07/28/25 calcium 500 mg (as 1 tab PO DAILY 09/14/24 07/28/25 carbonate)-vitamin D3 5 mcg (200 unit) tablet (Oysco 500/D) cholecalciferol (vitamin D3) 1,250 1,250 mcg PO QWEEK 09/14/24 07/28/25 mcg (50,000 unit) capsule clotrimazole 10 mg leonardo 10 mg mucous membrane TID 09/14/24 07/28/25 diphenhydramine HCl 25 mg capsule 25 mg PO BEDTIME PRN 09/14/24 07/28/25 (Banophen) emollient combination no.71 ea topical 09/14/24 07/28/25 (Lubriderm Advanced Therapy lotion) fluticasone furoate 50 inhalation 09/14/24 07/28/25 mcg/actuation blister powder for inhalation gabapentin 100 mg capsule 100 mg PO DAILY 09/14/24 07/28/25 hydroxyzine HCl 25 mg tablet 25 mg PO BEDTIME 09/14/24 07/28/25 ketoconazole 2 % topical cream 1 appl topical DAILY 09/14/24 07/28/25 ketotifen fumarate 0.025 % (0.035 1 drp ophthalmic (eye) BID 09/14/24 07/28/25 %) eye drops lisinopril 2.5 mg tablet 2.5 mg PO DAILY 09/14/24 07/28/25 loperamide 2 mg capsule 2 mg PO Q6H PRN 09/14/24 07/28/25 miconazole nitrate 2 % vaginal 1 appful vaginal BEDTIME 09/14/24 07/28/25 cream (Monistat 7) ondansetron 4 mg disintegrating 4 mg PO Q8H 09/14/24 07/28/25 tablet sumatriptan succinate 50 mg tablet 50 mg PO Q2-4H PRN 09/14/24 07/28/25 terconazole 0.4 % vaginal cream 1 appful vaginal BEDTIME 09/14/24 07/28/25 Previous Rx's ?Medication ?Instructions ?Recorded montelukast 10 mg tablet 10 mg PO BEDTIME #90 tabs 07/11/24 ipratropium bromide 0.02 % 2.5 ml inhalation Q6H PRN for 06/21/25 solution for inhalation wheezing #125 mL Breo Ellipta 200 mcg-25 mcg/dose 1 ea PO DAILY #60 ea 08/14/25 powder for inhalation (fluticasone furoate-vilanterol) cetirizine 10 mg tablet 10 mg PO DAILY #90 tabs 09/07/25 cyclobenzaprine 10 mg tablet 10 mg PO TID PRN muscle spasm #15 11/13/25 tabs Allergies Allergy/AdvReac Type Severity Reaction Status Date / Time budesonide (From SYMBICORT) Allergy Intermediate TREMOR Verified 11/13/25 19:42 formoterol (From SYMBICORT) Allergy Intermediate TREMOR Verified 11/13/25 19:42 sulfamethoxazole (From Allergy Intermediate RASH Verified 11/13/25 19:42 BACTRIM) trimethoprim (From BACTRIM) Allergy Intermediate RASH Verified 11/13/25 19:42 Sulfa (Sulfonamide Allergy Unknown Unknown Verified 11/13/25 19:42 Antibiotics) Symbicort Allergy Unknown Unknown Uncoded 05/18/25 08:33 Review of Systems Constitutional: Constitutional: Denies body ache(s), Denies chills, Denies fever(s) and Denies headache(s) Eyes: Eyes: Denies blurry vision ENT: Denies vertigo, Denies dizziness, Denies dry mouth and Denies headache(s) Cardiovascular: Cardiovascular: Denies chest pain and Denies dyspnea on exertion Respiratory: Respiratory: Denies cough and Denies dyspnea on exertion Gastrointestinal: Gastrointestinal: Denies abdominal pain, Denies nausea and Denies vomiting Musculoskeletal: Musculoskeletal: Reports back pain and Denies numbness Integumentary/Breasts: Skin/Breast: Denies rash Neurologic: Denies vertigo, Denies dizziness, Denies headache(s) and Denies numbness Psychiatric: Psychiatric: Denies anxiety PMFSH Past Medical History Medical History Wheelchair dependence Edema of both lower extremities Hx of cerebral palsy GERD (gastroesophageal reflux disease) Asthma Alopecia Surgical History History of surgery Hx of appendectomy History of esophagogastroduodenoscopy (EGD) Hx of colonoscopy Hx of lithotripsy Social History Social History Household Members: Family Housing: House Alcohol intake: never Patient Tobacco Use Status: Never used Tobacco Smoked in Last 30 Days: No Use of substances other than those prescribed or required for medical reasons: No Advance Directives: No Advance Directives Information Provided: Yes Do you have a plan to hurt others: No Plan Patient : No service: No Current occupational status: disabled Physical Exam ED Vital Signs: Vital Signs - 24 hr 11/13/25 19:39 11/13/25 22:00 Temperature 97.9 F 98.9 F Pulse Rate 98 93 Blood Pressure 146/98 H 150/73 H Pulse Oximetry 98 98 Oxygen Delivery Method Room Air Room Air BMI result Body Mass Index 31.4 Const General: healthy appearing, comfortable, no acute distress, alert and awake Nutritional Appearance: well nourished Orientation/consciousness: patient oriented x3 HENMT Head: Yes normocephalic and Yes atraumatic Eyes Eyelids: Yes eyelids normal Conjunctivae: conjunctivae normal Sclerae: sclerae normal Corneas: corneas normal Pupils: Equal, round and reactive pupils present EOM: EOMs intact bilaterally Neck Neck: Yes full ROM Resp Effort & Inspection: normal respiratory effort, able to speak in complete sentences and not labored Cardio Rate: regular rate Rhythm: regular rhythm GI Inspection: No distended Palpation (GI): Soft to palpation, not firm, nontender, no guarding and not rigid Skin General skin exam: no rashes or lesions noted and elasticity normal Neuro General: patient oriented x3 Cranial nerves: Yes CN's II-XII intact bilaterally, Yes Equal, round and reactive pupils present and Yes Bilaterally intact EOM present Cognition (Neuro): normal cognition Gait exam (Neuro): Spastic hemiparesis gait present Course Reevaluation(s) Reevaluation #1: The patient's labs and urinalysis are largely unremarkable. CT scan of the abdomen pelvis shows possible pancreatitis with some mild perinephric fat stranding. The patient has no epigastric pain, epigastric tenderness. Her back pain is far lower in the lumbosacral region. I do not suspect that this finding is suggestive of acute pancreatitis. The patient's lipase is also within normal limits. She has not had any nausea or vomiting and has no pain with eating. I think the patient's back pain today is most likely related to muscle spasms. We will discharge her back home via ambulance with cyclobenzaprine. She takes naproxen daily already Time: 23:55 Medical Decision Making Medical Decision Making MDM Narrative: 54-year-old female with a past medical history as above presents for evaluation of atraumatic lower back pain. She is primarily bed down but also uses a wheelchair. She does not walk due to history of cerebral palsy. She denies any fevers, she has no abdominal pain or tenderness. Her urinalysis shows no evidence of UTI or hematuria to suggest obstructive uropathy. No significant wounds noted to the area. The patient has no abdominal pain, tenderness on exam. Given her history we will get a CT scan of the abdomen pelvis though I have a fairly low suspicion for obstructive uropathy. Symptoms may be related to muscle spasms versus constipation Differential Diagnosis Differential Diagnoses: The differential diagnosis associated with the presentation includes Low back pain Muscle spasm Obstructive uropathy Constipation Lab Data MDM Lab Attestation statement: I reviewed the patient's lab results. No leukocytosis or anemia. Normal platelet count. No electrolyte abnormalities warranting dimension. Urinalysis without hematuria or evidence of UTI 11/13/25 22:22 11/13/25 22:22 Labs: Lab Results 11/13/25 11/13/25 Range/Units 20:35 22:22 WBC 6.1 (4.8-10.8) X10*3/uL RBC 4.44 (4.20-5.50) X10*6/uL Hgb 12.4 (12.0-16.0) g/dl Hct 38.3 (37.0-47.0) % MCV 86.3 (80.0-98.0) fL MCH 27.9 (27.0-33.0) pg MCHC 32.4 (31.0-35.0) g/dl RDW 12.5 (11.0-16.0) % Plt Count 251 (160-400) X10*3/uL MPV 10.5 (9.4-12.3) fL Immature Gran % (Auto) 0.3 (0.0-0.4) % Neut % (Auto) 71.0 (45-73) % Lymph % (Auto) 16.5 L (20-40) % [place] % (Auto) 8.9 (2-11) % Eos % (Auto) 3.0 (0-4) % Baso % (Auto) 0.3 (0-2) % Lymph # (Auto) 1.0 L (1.2-4.9) X10*3/uL [place] # (Auto) 0.5 (0.1-1.2) X10*3/uL Eos # (Auto) 0.2 (0.0-0.4) X10*3/uL Baso # (Auto) 0.0 (0.0-0.2) X10*3/uL Abs Immat Gran (auto) 0.02 (0.00-0.03) X10*3/uL Absolute Neuts (auto) 4.3 (2.0-8.3) x10*3/uL Absolute Nucleated RBC 0.000 (0.0-0.012) X10*3/uL Nucleated RBC % (auto) 0.0 (0.0-0.2) /100WBC Sodium 139 (135-145) mmol/L Potassium 5.0 D (3.3-5.1) mmol/L Chloride 104 (96-108) mmol/L Carbon Dioxide 26 (22-29) mmol/L Anion Gap 14 (12-20) BUN 14 (9-16) mg/dL Creatinine 0.67 (0.5-1.4) mg/dL Estim Creat Clear Calc 96.3 Estimated GFR > 60 Random Glucose 113 (60-115) mg/dL Calcium 10.0 (8.4-10.2) mg/dL Total Bilirubin 0.2 (0.0-1.0) mg/dL AST 37 H (5-31) U/L ALT 33 H (0-31) U/L Alkaline Phosphatase 73 (39-117) U/L Total Protein 7.6 (6.5-8.0) g/dL Albumin 4.5 (3.5-5.0) g/dL Lipase 11 (8-78) U/L Urine Color Yellow Urine Appearance Clear Urine pH 6.5 (5.0-9.0) Ur Specific [place] 1.015 (1.005-1.025) Urine Protein Negative (Neg-Trace) mg/dL Urine Glucose (UA) Negative (Negative) mg/dL Urine Ketones Negative (Negative) mg/dL Urine Blood Negative (Negative) Urine Nitrite Negative (Negative) Ur Leukocyte Esterase Negative (Negative) Urine RBC 0-2 (0-2) /HPF Urine WBC 0-5 (0-5) /HPF Ur Squamous Epith Cells 0-2 (0-2) /HPF Urine Bacteria None Seen (None Seen) Hyaline Casts 0-2 (0-2) /LPF Radiology Impression Discussion of test interpretation with radiology: I have reviewed the radiologist's reading. Radiologist Impression: Patient: Radha Kimball MR#: [id number] : 1970 Acct:[id number] Age/Sex: 54 / F ADM Date: 11/13/25 Loc: HO.ED Attending Dr: Ordering Physician: Tahir Erickson Date of Service: 11/13/25 Procedure(s): CT abdomen pelvis wo IV con Accession Number(s): [id number] cc: Tahir Erickson; Marisabel Michel MD~ Report Number: [id number]: Total DLP = 0.00 mGy-cm Reason for Exam: low back pain, hx kidney stones CLINICAL HISTORY: low back pain, hx kidney stones CT abdomen and pelvis without contrast Comparison: US - US RENAL BI - 04/05/25 14:32 EDT Findings: Partially visualized heart and lung bases are unremarkable. Liver, gallbladder, spleen, and bilateral adrenal glands are unremarkable. Significant fatty replacement of the pancreas. There is mild peripancreatic fat stranding. Nonobstructing stone in the upper pole of the right kidney. Left kidney unremarkable. No hydronephrosis or hydroureter bilaterally. Small hiatal hernia. No bowel obstruction, pneumoperitoneum, or pneumatosis. Colonic diverticulosis without evidence of diverticulitis. Appendectomy. Pelvic contents are unremarkable. Osseous structures are unremarkable. IMPRESSION: Fatty replaced pancreas with mild peripancreatic fat stranding. Possible acute pancreatitis. Correlate with pancreatic enzymes. Nonobstructing right kidney stone. This document has been electronically signed by: Josep Qiu MD on 11/13/2025 23:41:28 Discharge Plan Discharge Clinical Impression: Acute low back pain Patient Disposition: Home, Self-Care Instructions: Acute Low Back Pain (ED) Additional Instructions: Your workup in the ER today was reassuring. I think your back pain is most likely related to muscle spasms. If you develop upper abdominal pain, nausea or vomiting, you should return to the hospital for possible pancreatitis. In the meantime, you may continue Naprosyn for your pain pain Use cyclobenzaprine as needed for muscle spasms. This may make you drowsy, do not drink alcohol or drive after taking it Prescriptions: New cyclobenzaprine 10 mg tablet 10 mg PO TID PRN (Reason: muscle spasm) Qty: 15 0RF No Action montelukast 10 mg tablet 10 mg PO BEDTIME Qty: 90 0RF ipratropium bromide 0.02 % solution 2.5 ml inhalation Q6H PRN (Reason: for wheezing) Qty: 125 0RF fluticasone furoate-vilanterol [Breo Ellipta] 200-25 mcg/dose blister with device 1 ea PO DAILY Qty: 60 6RF cetirizine 10 mg tablet 10 mg PO DAILY Qty: 90 0RF furosemide 40 mg tablet 40 mg PO DAILY ciclopirox 0.77 % cream 1 appl topical BEDTIME naproxen 375 mg tablet 375 mg PO DAILY diclofenac sodium 1 % gel 1 g topical DAILY PRN (Reason: Pain) docusate sodium 100 mg capsule 100 mg PO BID omeprazole 20 mg capsule,delayed release(DR/EC) 20 mg PO BID@0630,1630 ascorbic acid (vitamin C) 500 mg tablet 500 mg PO DAILY ferrous sulfate 325 mg (65 mg iron) tablet 325 mg PO DAILY triamcinolone acetonide 0.1 % ointment 1 appl topical BID PRN (Reason: Redness) alendronate 70 mg tablet 70 mg PO TH amitriptyline 10 mg tablet 10 mg PO BEDTIME loperamide 2 mg capsule 2 mg PO Q6H PRN miconazole nitrate [Monistat 7] 2 % cream 1 appful vaginal BEDTIME terconazole 0.4 % cream 1 appful vaginal BEDTIME cholecalciferol (vitamin D3) 1,250 mcg (50,000 unit) capsule 1,250 mcg PO QWEEK lisinopril 2.5 mg tablet 2.5 mg PO DAILY calcium carbonate-vitamin D3 [Oysco 500/D] 500 mg-5 mcg (200 unit) tablet 1 tab PO DAILY gabapentin 100 mg capsule 100 mg PO DAILY ammonium lactate 12 % cream 1 appl topical DAILY ketoconazole 2 % cream 1 appl topical DAILY Lubriderm Advanced Therapy Lotion topical diphenhydramine HCl [Banophen] 25 mg capsule 25 mg PO BEDTIME PRN albuterol sulfate 90 mcg/actuation HFA aerosol inhaler 1 inh inhalation QID clotrimazole 10 mg leonardo 10 mg mucous membrane TID sumatriptan succinate 50 mg tablet 50 mg PO Q2-4H PRN Rx Instructions: do not exceed 4 doses per 24 hrs ketotifen fumarate 0.025 % (0.035 %) drops 1 drp ophthalmic (eye) BID Rx Instructions: administer at least 8 hours apart hydroxyzine HCl 25 mg tablet 25 mg PO BEDTIME ondansetron 4 mg tablet,disintegrating 4 mg PO Q8H fluticasone furoate 50 mcg/actuation blister with device inhalation triamcinolone acetonide [Kenalog] 40 mg/mL suspension 40 mg intrabursal ONCE Qty: 1 0RF Print Language: Estonian
--- NOTE | 2025-11-13 23:58 | PC.NURSE ---
pt medicated per jan, notified [facility] for transport back home.
[2025-11-14] VITALS: BP 140/96; PULSE 96; RESP 22; TEMP 37.2; O2SAT 98
--- NOTE | 2025-11-14 00:08 | PC.NURSE ---
medicated per mar.
--- NOTE | 2025-11-14 00:19 | PC.NURSE ---
called sister Ciarra and notified pt returning back home, awaiting EMS.
--- NOTE | 2025-11-14 00:38 | PC.NURSE ---
reviewed discharge instructions with pt. pt verbalized understanding, no sign of distress.
[2025-11-14 00:41] VITALS: BP 135/70; PULSE 96; RESP 16; TEMP 36.1; O2SAT 98
== END 2025-11-14 00:42 | disposition home or self-care (01) ==
PROVIDERS: Emergency Provider Emergency Medicine; PCP Family Medicine
DX: M54.50 Low back pain, unspecified (principal); Z87.442 Personal history of urinary calculi; J45.909 Unspecified asthma, uncomplicated; K21.9 Gastro-esophageal reflux disease without esophagitis
CPT/HCPCS: 36415; 74176; 80053; 81001; 83690; 85025; 99284

== ENCOUNTER → 2025-11-13 22:23 | Outpatient (BNV) | payer OTHER, SELFPAY | PROVIDERS: Emergency Provider Emergency Medicine; PCP Family Medicine; Visit Provider Student in an Organized Health Care Education/Training Program | DX: N20.0 Calculus of kidney (principal); K86.89 Other specified diseases of pancreas | CPT/HCPCS: 74176 ==